=== PATIENT | male | born 1945 | race Caucasian/White ===

== ENCOUNTER → 2017-04-07 | Outpatient (CLI) | payer MEDICARE | END | disposition home or self-care (01) | LOC: PTMAIN 13:00 | PROVIDERS: ATTEND Otolaryngology | DX: J37.0 Chronic laryngitis (principal); K21.9 Gastro-esophageal reflux disease without esophagitis | CPT/HCPCS: 31579 ==

== ENCOUNTER → 2017-05-08 | Outpatient (CLI) | payer MEDICARE | END | disposition home or self-care (01) | LOC: LABWHC1 10:50 | PROVIDERS: ATTEND Internal Medicine Endocrinology, Diabetes & Metabolism | DX: E03.8 Other specified hypothyroidism (principal); R53.83 Other fatigue | CPT/HCPCS: 36415; 83002; 84403; 84439; 84443 ==

== ENCOUNTER → 2018-05-11 | Outpatient (CLI) | payer MEDICARE ==
[2018-05-11 15:54] LABS: Calcium 9.4 mg/dL (8.4-10.2); Total Bilirubin 0.6 mg/dL (0.2-1.3); Total Protein 6.7 g/dL (6.3-8.2)
[2018-05-12 02:08] LABS: Thyroid Peroxidase Antibodies <28.0 U/mL (0.0-60.0); Vitamin D 25 Hydroxy 29.4 ng/mL (30.0-100.0)
[2018-05-12 03:21] LABS: Parathyroid Hormone Intact 121.6 pg/mL (14.0-72.0)
== END | disposition home or self-care (01) ==
LOC: LABWHC1 15:17
PROVIDERS: ATTEND Internal Medicine Endocrinology, Diabetes & Metabolism
DX: E03.8 Other specified hypothyroidism (principal); M81.6 Localized osteoporosis [Lequesne]
CPT/HCPCS: 36415; 80053; 82306; 83970; 84443; 86376

== ENCOUNTER → 2018-10-05 | Outpatient (CLI) | payer MEDICARE ==
[2018-10-05 18:59] LABS: Albumin 4.3 g/dL (3.80-4.90); Albumin/Globulin Ratio 2.26 (1.20-2.10); Anion Gap 4.7 mmol/L (4.00-12.00); Carbon Dioxide 27.3 mmol/L (21.6-31.8); Globulin 1.9 g/dL (2.1-3.7); Potassium 4.6 mmol/L (3.5-5.5); Total Bilirubin 0.3 mg/dL (0.2-1.2); Total Protein 6.2 g/dL (6.2-8.2)
[2018-10-05 19:00] LABS: Thyroid Peroxidase Antibodies <28.0 U/mL (0.0-60.0)
[2018-10-05 21:54] LABS: Parathyroid Hormone Intact 102.5 pg/mL (14.0-72.0)
== END | disposition home or self-care (01) ==
LOC: LABWHC1 11:08
PROVIDERS: ATTEND Internal Medicine Endocrinology, Diabetes & Metabolism
DX: E03.8 Other specified hypothyroidism (principal); M81.6 Localized osteoporosis [Lequesne]
CPT/HCPCS: 36415; 80053; 82306; 83970; 84443; 86376

== ENCOUNTER → 2019-03-23 | Outpatient (CLI) | payer MEDICARE | END | disposition home or self-care (01) | LOC: LABWHC1 16:06 | PROVIDERS: ATTEND Internal Medicine Endocrinology, Diabetes & Metabolism | DX: E03.8 Other specified hypothyroidism (principal) | CPT/HCPCS: 36415; 84443 ==

== ENCOUNTER → 2019-03-23 | Outpatient (CLI) | payer MEDICARE ==
--- NOTE | 2019-03-23 15:45 | MR ---
EXAMINATION TYPE: MR lumbar spine wo/w con DATE OF EXAM: 03/23/2019 COMPARISON: 08/05/2016 HISTORY: Low back pain with prior lumbar surgical intervention TECHNIQUE: Multiplanar, multisequence images of the lumbar spine were acquired utilizing 13.5 mL intravenous Joey avist gadolinium contrast. FINDINGS: There is a S-shaped scoliosis of the thoracolumbar junction. This is rotatory slightly limi ting evaluation of the neural foramen. There is surgical absence of the posterior elements at L5 and fibrosis within the subcutaneous tissues at L4-L5. There is near osseous fusion of the L1-L2 levels. Multilevel degenerative endplate change and Schmorl's nodes are noted. Multilevel disc desiccation is seen. However, there is abnormal enhancement of the visualized portions of the T11 vertebral body an d superior endplate as well as mid body of the T12 vertebrae new from the prior of 08/05/2016. There is generalized paravertebral paraspinal muscular atrophy increasing towards the lumbosacral junction. Possible left renal sinus cyst is seen although incompletely visualized. Renal ultrasound could be c onsidered if there is further concern L1-L2: There is a diminutive disc space with near complete osseous fusion of the L1 and L2 vertebral bodies. What is residual of the disc in combination with posterior projecting osteophyte and facet ar thropathy creating moderate left neural foraminal narrowing. Right neural foramen is patent. No signi ficant spinal canal stenosis. L2-L3: There is a right foraminal disc herniation creating moderate to severe right neural foraminal narrowing in combination with a posterior projecting osteophyte and facet arthropathy. There is moder ate left neural foraminal narrowing and mild spinal canal stenosis due to facet arthropathy and ligam entum flavum buckling. This has the most mass effect on the right lateral aspect of the spinal canal. L3-L4: There is a broad-based disc bulge and facet arthropathy as well as mild ligamentum flavum cunningham ling resulting in mild left and moderate right neural foraminal narrowing. No significant spinal steph l stenosis. L4-L5: There is a broad-based disc bulge, facet arthropathy, ligamentum flavum buckling and posterior projecting osteophytes creating moderate left and severe right neural foraminal narrowing. This also results in mild spinal canal stenosis. L5-S1: There is a small central disc herniation and broad-based disc bulge with marked facet hypertro phy. This is likely recurrent as there is postsurgical change at this level with surgical absence of the posterior elements. There is mild to moderate bilateral neural foraminal narrowing without spinal canal stenosis. There is no abnormal epidural enhancement to suggest epidural fibrosis. IMPRESSION: 1. Abnormal enhancement and bone marrow signal within the visualized portions of T11 and T12. Finding s are concerning for underlying metastasis and correlation with PSA as well as bone scan are recommen ded. The superior endplate is not seen of T11 and vertebral body height is uncertain. 2. Small central disc herniation at L5-S1 appears recurrent despite surgical change with resection of the posterior element at L5. This examination with facet arthropathy creates mild to moderate bilate ral neural foraminal narrowing. 3. Right foraminal disc herniation at L2-L3 creating moderate to severe right neural foraminal narrow ing. This in combination with degenerative change create moderate left neural foraminal narrowing and right lateral mild spinal canal stenosis. 4. Slight progression in the multifocal level degenerative disc disease of the lumbar spine resulting in mild spinal canal stenosis at L4-L5 and variable degrees of neural foraminal narrowing as describ ed above. 5. Partially visualized left renal lesion could represent a renal sinus cyst however could be further evaluated with renal ultrasound.
== END | disposition home or self-care (01) ==
LOC: RADMRIMAIN 13:35
PROVIDERS: ATTEND Psychiatry & Neurology Neurology
DX: M48.061 Spinal stenosis, lumbar region without neurogenic claudication (principal); M48.07 Spinal stenosis, lumbosacral region; M51.26 Other intervertebral disc displacement, lumbar region; M51.27 Other intervertebral disc displacement, lumbosacral region; M51.36 Other intervertebral disc degeneration, lumbar region; M46.97 Unspecified inflammatory spondylopathy, lumbosacral region; Z98.890 Other specified postprocedural states
CPT/HCPCS: 72158; A9585

== ENCOUNTER → 2019-04-12 | Outpatient (CLI) | payer MEDICARE ==
--- NOTE | 2019-04-13 12:05 | MR ---
Thoracic MRI with and without contrast HISTORY: Pain, prostate carcinoma Multiplanar multisequence and postcontrast images obtained through the thoracic spine following 13.5 cc Gadavist IV. Correlation lumbar MRI 03/23/2019 Multilevel hypertrophic spondylosis is present. There is a S-shaped thoracic scoliosis. Endplate disc ogenic marrow signal changes are present with associated loss of disc height and signal at multiple i ntervertebral levels compatible with degenerative disc disease. Thoracic cord signal is normal. No ab normal enhancement. No significant foraminal encroachment. There is multilevel facet arthropathy. Mul tilevel posterior disc bulges causes slight anterior mass effect on the thecal sac. There is a mild s jenny stenosis present at T10-11. Some increased signal present at the intervertebral disc space T8-9 may represent some calcification IMPRESSION: Multilevel degenerative disc disease, facet arthropathy as described. Metastatic disease is not evident.
== END | disposition home or self-care (01) ==
LOC: RADMRIMAIN 20:42
PROVIDERS: ATTEND Psychiatry & Neurology Neurology
DX: M51.34 Other intervertebral disc degeneration, thoracic region (principal); M46.94 Unspecified inflammatory spondylopathy, thoracic region
CPT/HCPCS: 72157; A9585

== ENCOUNTER → 2019-09-27 | Outpatient (CLI) | payer MEDICARE ==
[2019-09-27 20:00] LABS: African American GFR (CKD) 49.5 (60.0-200.0); Albumin 3.8 g/dL (3.80-4.90); Albumin/Globulin Ratio 1.9 (1.60-3.17); BUN/Creat Ratio 15.63 Ratio (12.00-20.00); Non-African American GFR(CKD) 42.7 (60.0-200.0); Potassium 4.6 mmol/L (3.5-5.5); Total Bilirubin 0.5 mg/dL (0.2-1.2); Total Protein 5.8 g/dL (6.2-8.2)
== END | disposition home or self-care (01) ==
LOC: LABWHC1 14:08
PROVIDERS: ATTEND Internal Medicine Endocrinology, Diabetes & Metabolism
DX: E03.8 Other specified hypothyroidism (principal); E55.9 Vitamin D deficiency, unspecified; N25.81 Secondary hyperparathyroidism of renal origin
CPT/HCPCS: 36415; 80053; 82306; 83970; 84443

== ENCOUNTER → 2019-10-12 | Outpatient (CLI) | payer MEDICARE ==
[2019-10-12 09:23] LABS: African American GFR (CKD) 75 (>60 ml/min/1.73 sqM); Anion Gap 7 mmol/L; Blood Urea Nitrogen 29 mg/dL (9-20); Carbon Dioxide 28 mmol/L (22-30); Chloride 104 mmol/L (98-107); Glucose 97 mg/dL (74-99); Non-African American GFR(CKD) 65 (>60 ml/min/1.73 sqM); Potassium 4.5 mmol/L (3.5-5.1); Sodium 139 mmol/L (137-145)
[2019-10-12 09:30] LABS: HCT 38.4 % (39.0-53.0); HGB 11.8 gm/dL (13.0-17.5); Hypochromasia Moderate; MCH 28.7 pg (25.0-35.0); MCHC 30.8 g/dL (31.0-37.0); MCV 93.2 fL (80.0-100.0); Mean Platelet Volume 7.8; Platelet Count 242 k/uL (150-450); RBC 4.12 m/uL (4.30-5.90); RDW 14.3 % (11.5-15.5); WBC 8.8 k/uL (3.8-10.6)
[2019-10-12 09:32] LABS: Partial Thromboplastin Time 33.3 sec (22.0-30.0); Prothrombin Time 10.9 sec (9.0-12.0)
== END | disposition home or self-care (01) ==
LOC: LABWHC1 08:47
PROVIDERS: ATTEND Internal Medicine Cardiovascular Disease
DX: Z01.812 Encounter for preprocedural laboratory examination (principal); Z79.01 Long term (current) use of anticoagulants
CPT/HCPCS: 36415; 80048; 85027; 85610; 85730

== ENCOUNTER → 2019-12-01 | Outpatient (CLI) | payer MEDICARE ==
[2019-12-02 00:25] LABS: African American GFR (CKD) 63.2 (60.0-200.0); Albumin 4.4 g/dL (3.80-4.90); Albumin/Globulin Ratio 1.91 (1.60-3.17); Anion Gap 7.7 mmol/L (4.00-12.00); BUN/Creat Ratio 18.46 Ratio (12.00-20.00); Calcium 9.7 mg/dL (8.7-10.3); Carbon Dioxide 27.3 mmol/L (21.6-31.8); Globulin 2.3 g/dL (1.6-3.3); Non-African American GFR(CKD) 54.5 (60.0-200.0); Potassium 5.1 mmol/L (3.5-5.5); Total Bilirubin 0.6 mg/dL (0.3-1.2); Total Protein 6.7 g/dL (6.2-8.2)
== END | disposition home or self-care (01) ==
LOC: LABWHC1 15:45
PROVIDERS: ATTEND Internal Medicine Endocrinology, Diabetes & Metabolism
DX: E03.8 Other specified hypothyroidism (principal); E55.9 Vitamin D deficiency, unspecified; E21.3 Hyperparathyroidism, unspecified
CPT/HCPCS: 36415; 80053; 82306; 83970; 84443

== ENCOUNTER → 2019-12-06 | Outpatient (CLI) | payer MEDICARE | END | disposition home or self-care (01) | LOC: LABWHC1 08:54 | PROVIDERS: ATTEND Internal Medicine Endocrinology, Diabetes & Metabolism | DX: R23.2 Flushing (principal) | CPT/HCPCS: 36415; 84403 ==

== ENCOUNTER → 2020-04-21 | Outpatient (CLI) | payer MEDICARE | END | disposition home or self-care (01) | LOC: LABWHC1 14:54 | PROVIDERS: ATTEND Internal Medicine Endocrinology, Diabetes & Metabolism | DX: E03.8 Other specified hypothyroidism (principal); E55.9 Vitamin D deficiency, unspecified; E21.3 Hyperparathyroidism, unspecified | CPT/HCPCS: 36415; 82306; 83970; 84443 ==

== ENCOUNTER → 2021-04-26 | Outpatient (CLI) | payer MEDICARE ==
[2021-04-26 15:44] LABS: T4, Free (Free Thyroxine) 1.1 ng/dL (0.80-1.80)
[2021-04-26 15:50] LABS: African American GFR (CKD) 86.2 (60.0-200.0); Albumin/Globulin Ratio 1.74 (1.60-3.17); Anion Gap 3.6 mmol/L (4.00-12.00); Bilirubin, Conjugated 0.3 mg/dL (0.20-0.40); Bilirubin,Unconjugated 0.5 mg/dL; C Reactive Protein, High Sens 9.95 mg/L (0.000-3.000); Calcium 9.4 mg/dL (8.7-10.3); Carbon Dioxide 32.4 mmol/L (21.6-31.8); Chol/HDL Ratio 2.76; Globulin 2.3 g/dL (1.6-3.3); LDL Cholesterol,Calculated 72.4 mg/dL (0.0-131.0); Non-African American GFR(CKD) 74.3 (60.0-200.0); Potassium 4.5 mmol/L (3.5-5.5); Total Bilirubin 0.8 mg/dL (0.3-1.2); Total Protein 6.3 g/dL (6.2-8.2); VLDL Calculation 15.6 mg/dL (5.00-40.00)
[2021-04-26 16:55] LABS: Basophils # (A) 0.05 X 10*3/uL (0.00-0.10); Basophils % (A) 0.7 %; Eosinophils # (A) 0.25 X 10*3/uL (0.04-0.35); Eosinophils % (A) 3.5 %; HCT 42.9 % (39.6-50.0); HGB 13.3 g/dL (13.0-17.0); Lymphocytes # (A) 1.09 X 10*3/uL (0.90-5.00); Lymphocytes % (A) 15.2 %; MCH 28.1 pg (27.0-32.0); MCV 90.7 fL (80.0-97.0); Mean Platelet Volume 11.2 fL (9.5-12.2); Monocytes % (A) 9.8 %; Neutrophils # (A) 5.04 X 10*3/uL (1.80-7.70); Neutrophils % (A) 70.5 %; Platelet Count 259 X 10*3/uL (140-440); RBC 4.73 X 10*6/uL (4.40-5.60); RDW 15.2 % (11.5-14.5); WBC 7.15 X 10*3/uL (4.50-10.00)
[2021-04-26 20:12] LABS: Erythrocyte Sedimentation Rate 22 mm/Hr (0-20)
[2021-04-26 22:29] LABS: INR 1.12 (0.90-1.11); Partial Thromboplastin Time 41.2 sec (23.5-31.0); Prothrombin Time 12.1 sec (9.9-11.9)
== END | disposition home or self-care (01) ==
LOC: LABWHC1 10:35
PROVIDERS: ATTEND Internal Medicine Endocrinology, Diabetes & Metabolism
DX: E03.8 Other specified hypothyroidism (principal); E55.9 Vitamin D deficiency, unspecified; E21.3 Hyperparathyroidism, unspecified; E78.2 Mixed hyperlipidemia; I25.10 Atherosclerotic heart disease of native coronary artery without angina pectoris; I11.9 Hypertensive heart disease without heart failure; E07.9 Disorder of thyroid, unspecified
CPT/HCPCS: 36415; 80053; 80061; 82248; 82306; 83970; 84439; 84443; 84481; 85025; 85610; 85652; 85730; 86141

== ENCOUNTER → 2021-07-03 | Outpatient (CLI) | payer MEDICARE ==
[2021-07-03 10:54] LABS: Albumin 3.4 g/dL (3.5-5.0); Potassium 4.8 mmol/L (3.5-5.1); Total Bilirubin 0.8 mg/dL (0.2-1.3); Total Protein 6.2 g/dL (6.3-8.2)
[2021-07-03 19:02] LABS: Hemoglobin A1C 5.5 % (4.0-6.0)
--- NOTE | 2021-07-03 20:01 | BD ---
EXAMINATION TYPE: Axial Bone Density DATE OF EXAM: 07/03/2021 COMPARISON: NONE CLINICAL HISTORY: 75-year-old male E21.3, hyperparathyroidism. Height: 71 Weight: 331.6 FRAX RISK QUESTIONS: Alcohol (3 or more units per day): no Family History (Parent hip fracture): yes Glucocorticoids (More than 3mos): no (Ex: prednisone, prednisolone, methylprednisolone, dexamethasone, and hydrocortisone). History of Fracture in Adulthood: no Secondary Osteoporosis: 1. Type 1 Diabetes: no 2. Hyperthyroidism: no 3. Menopause before 45: n/a 4. Malnutrition: no 5. Chronic liver disease: no Rheumatoid Arthritis: no Current Tobacco Use: no RISK FACTORS HISTORY OF: Surgery to Spine/Hip(right/left)/Wrist (right/left): bilateral hips replacements laminectomy spine Family History of Osteoporosis: yes Active: no Diet low in dairy products/other sources of calcium: no Frequent falls: yes MEDICATIONS: oxycodone Thyroid Medications: synthroid How Lon 1/2 years Additional History: EXAM MEASUREMENTS: Bone mineral densitometry was performed using the [employer] System. Bone mineral density as measured about the Lumbar spine is: ----- L1-L4(G/cm2): 1.831 T Score Values are as follows: ----- L2: 6.2 ----- L3: 4.2 ----- L4: 4.3 ----- L1-L4: 5.4 Bone mineral density : baseline Bone mineral density about the L Wrist (g/cm2): 0.927 T Score values are as follows: -----Dist. R+U: -1.7 -----Prox. R+U: -0.6 -----Radius total: -1.5 Bone mineral density : baseline IMPRESSION: Normal (Values between +1 and -1 indicate normal bone mass). Consider repeating this study in 5 year s or sooner if there is some new clinical indication. NOTE: T-SCORE=SD OF THE YOUNG ADULT MEAN.
== END | disposition home or self-care (01) ==
LOC: RADBDWWP 08:55
PROVIDERS: ATTEND Internal Medicine Endocrinology, Diabetes & Metabolism
DX: E21.3 Hyperparathyroidism, unspecified (principal)
CPT/HCPCS: 77080; 80053; 82306; 83036; 83970; 84443

== ENCOUNTER → 2021-11-14 | Outpatient (CLI) | payer MEDICARE ==
[2021-11-14 10:48] LABS: ALT 28 U/L (4-49); AST 28 U/L (17-59); African American GFR (CKD) 75 (>60 ml/min/1.73 sqM); Albumin 3.8 g/dL (3.5-5.0); Albumin/Globulin Ratio 1.3; Alkaline Phosphatase 102 U/L (38-126); Anion Gap 9 mmol/L; Blood Urea Nitrogen 19 mg/dL (9-20); Calcium 9.2 mg/dL (8.4-10.2); Carbon Dioxide 28 mmol/L (22-30); Chloride 103 mmol/L (98-107); Globulin 2.9 g/dL; Glucose 99 mg/dL (74-99); Non-African American GFR(CKD) 65 (>60 ml/min/1.73 sqM); Potassium 4.6 mmol/L (3.5-5.1); Sodium 140 mmol/L (137-145); Total Bilirubin 0.8 mg/dL (0.2-1.3); Total Protein 6.7 g/dL (6.3-8.2)
== END | disposition home or self-care (01) ==
LOC: LABWHC1 09:26
PROVIDERS: ATTEND Internal Medicine Endocrinology, Diabetes & Metabolism
DX: E03.8 Other specified hypothyroidism (principal); E55.9 Vitamin D deficiency, unspecified; N25.81 Secondary hyperparathyroidism of renal origin; R73.03 Prediabetes
CPT/HCPCS: 36415; 80053; 82306; 83036; 83970; 84443

== ENCOUNTER → 2022-01-09 | Outpatient (CLI) | payer MEDICARE ==
[2022-01-09 23:31] LABS: African American GFR (CKD) 81.6 (60.0-200.0); BUN/Creat Ratio 22.31 Ratio (12.00-20.00); Blood Urea Nitrogen 23.2 mg/dL (9.0-27.0); Calcium 9.2 mg/dL (8.7-10.3); Carbon Dioxide 26.7 mmol/L (20.0-27.5); Non-African American GFR(CKD) 70.4 (60.0-200.0)
== END | disposition home or self-care (01) ==
LOC: LABWHC1 14:37
PROVIDERS: ATTEND Internal Medicine Cardiovascular Disease
DX: I27.29 Other secondary pulmonary hypertension (principal); R00.2 Palpitations; E66.9 Obesity, unspecified; R06.02 Shortness of breath
CPT/HCPCS: 36415; 80048; 83880

== ENCOUNTER 2022-02-06 03:12 | Emergency (ER) | payer MEDICARE ==
[2022-02-06 03:19] VITALS: TEMP 98.4
[2022-02-06] MEDS ORDERED: DIPH,PERTUS(ACELL)TETVAC-LF 0.5 ML VIAL IM ONE (03:25)
--- NOTE | 2022-02-06 03:27 | ED ---
Fall HPI - General Chief Complaint: Fall Stated Complaint: Fall Time Seen by Provider: 02/06/22 03:24 Source: patient, EMS Mode of arrival: EMS - History of Present Illness MD Complaint: fall -: minutes(s) Fall From: standing When Fall Occurred: just prior to arrival Fall Witnessed: yes, by family Place Fall Occurred: home Loss of Consciousness: none Prolonged Down Time?: no Location: head Severity: mild Associated Symptoms: denies - Related Data Home Medications Medication Instructions Recorded Confirmed DULoxetine HCL [Cymbalta] 60 mg PO BID 01/28/15 06/08/15 lamoTRIgine [LaMICtal] 150 mg PO DAILY 01/28/15 06/08/15 Lisdexamfetamine Dimesylate 70 mg PO DAILY 03/09/15 06/08/15 [Vyvanse] oxyCODONE HCL [OxyCONTIN] 40 mg PO TID 03/09/15 06/08/15 Metoprolol Tartrate [Lopressor] 50 mg PO BID 06/08/15 06/08/15 Previous Rx's Medication Instructions Recorded ARIPiprazole [Abilify] 20 mg PO DAILY tab 03/10/15 Apixaban [Eliquis] 5 mg PO BID #60 tab 03/10/15 oxyCODONE HCL [OxyIR] 15 mg PO Q6HR tab 03/10/15 Azithromycin [Zithromax Z-pack (6 250 mg PO DIRECTED #6 tab 06/08/15 tabs)] Allergies Allergy/AdvReac Type Severity Reaction Status Date / Time No Known Allergies Allergy Verified 06/08/15 16:14 Review of Systems ROS Statement: Those systems with pertinent positive or pertinent negative responses have been documented in the HPI. ROS Other: All systems not noted in ROS Statement are negative. Constitutional: Denies: fever Eyes: Denies: vision change ENT: Denies: epistaxis Respiratory: Denies: cough, dyspnea Cardiovascular: Denies: chest pain, palpitations, syncope Gastrointestinal: Denies: abdominal pain, vomiting Musculoskeletal: Denies: back pain Neurological: Reports: headache. Denies: weakness, numbness, paresthesias Past Medical History Past Medical History: Atrial Fibrillation, Hypertension Additional Past Medical History / Comment(s): 03/09/15 Pt presented to [facility] ER via EMS. He was suppose to have a colonoscopy today but when they hooked him up to EKG he was in Afib. Other HX: 01/28/15 seen in [facility] ER after a fall and subsequent. hematuria-resolved and he had a cystoscopy that was normal. Pt has hx of prostate cancer with prostatectomy. History of Any Multi-Drug Resistant Organisms: None Reported Past Surgical History: Back Surgery, Joint Replacement Additional Past Surgical History / Comment(s): (B) hip replecement, (B)knee replacement, laminectomy, prostatectomy. Past Anesthesia/Blood Transfusion Reactions: No Reported Reaction Additional Past Anesthesia/Blood Transfusion Reaction / Comment(s): Pt has never recieved blood. Past Psychological History: Depression Smoking Status: Never smoker Past Alcohol Use History: Occasional Past Drug Use History: None Reported - Past Family History Father Family Medical History: Myocardial Infarction (WA) Additional Family Medical History / Comment(s): Father of a [place] at age 89 yrs. Mother Family Medical History: Cancer Additional Family Medical History / Comment(s): Mother had multiple myeloma. She at age 68 yrs. General Exam General appearance: alert, in no apparent distress Head exam: Present: atraumatic, normocephalic, other (Face laceration approximately 9 cm in length) Eye exam: Present: normal appearance, PERRL, EOMI. Absent: scleral icterus, conjunctival injection ENT exam: Present: normal oropharynx Neck exam: Present: normal inspection, tenderness, full ROM. Absent: meningismus Respiratory exam: Present: normal lung sounds bilaterally. Absent: respiratory distress, wheezes, rales, rhonchi, stridor, chest wall tenderness Cardiovascular Exam: Present: regular rate, normal rhythm, normal heart sounds. Absent: systolic murmur, diastolic murmur, rubs, gallop GI/Abdominal exam: Present: soft. Absent: distended, tenderness, guarding, rebound, rigid, mass Extremities exam: Present: normal inspection, normal capillary refill. Absent: pedal edema, calf tenderness Back exam: Present: normal inspection. Absent: CVA tenderness (R), CVA tenderness (L), vertebral tenderness Neurological exam: Present: alert, oriented X3, CN II-XII intact. Absent: motor sensory deficit Skin exam: Present: warm, dry, normal color, other (Facial laceration) Course Vital Signs 02/06/22 02/06/22 02/06/22 03:14 04:55 07:04 Temperature 98.4 F Pulse Rate 129 H 102 H 102 H Respiratory 18 18 20 Rate Blood Pressure 117/95 103/85 109/80 O2 Sat by Pulse 94 L 96 95 Oximetry Procedures - Laceration Laceration #1 Consent Obtained: verbal consent Indication: laceration Site: face Description: linear Depth: simple, single layer Anesthetic Used: lidocaine 1% Anesthesia Technique: local infiltration Type of Sutures: nylon Size of Sutures: 5-0 Number of Sutures: 9 Technique: running Patient Tolerated Procedure: well, no complications Disposition Clinical Impression: Fall, Head injury, Laceration of face Disposition: HOME SELF-CARE Condition: Good Instructions (If sedation given, give patient instructions): Facial Laceration (ED) Is patient prescribed a controlled substance at d/c from ED?: No Referrals: Enoch Galarza MD [Primary Care Provider] - 1-2 days
--- NOTE | 2022-02-06 03:50 | CT ---
EXAMINATION TYPE: CT brain cspine wo con DATE OF EXAM: 02/06/2022 COMPARISON: 02/12/2010 HISTORY: fall CT DLP: 1597.2 mGycm Automated exposure control for dose reduction was used. Images obtained of the brain and cervical spine without contrast. There is cerebral cortical atrophy. There is no mass effect or midline shift. There is no evidence of intracranial hemorrhage. The cervical vertebra have normal alignment. There is degenerative disc space narrowing throughout th e cervical spine with spurring of the endplates. Facet joints are intact. Prevertebral soft tissues a re intact. Skull base is intact. There is normal aeration of the mastoid sinuses. Occipital bone is i ntact. IMPRESSION: Cerebral atrophy. No acute intracranial abnormality. There is progression of atrophy compared to old exam. Multilevel cervical spondylotic changes similar to old exam. No acute abnormality.
[2022-02-06] MEDS ORDERED: LIDOCAINE 1% INJ 10MG/ML (20 ML MDV) SQ ONE (05:00)
[2022-02-06 07:32] VITALS: BP 110/84; PULSE 99; RESP 18
== END 2022-02-06 08:00 | disposition home or self-care (01) ==
LOC: EC 03:12
DX: S01.81XA Laceration without foreign body of other part of head, initial encounter (principal); I10 Essential (primary) hypertension; I48.91 Unspecified atrial fibrillation; F32.A Depression, unspecified; Z79.01 Long term (current) use of anticoagulants; Z79.899 Other long term (current) drug therapy; Z23 Encounter for immunization; W18.30XA Fall on same level, unspecified, initial encounter; Y92.009 Unspecified place in unspecified non-institutional (private) residence as the place of occurrence of the external cause
CPT/HCPCS: 72125; 70450; 90715; 12015; 90471; 99284; J2001

== ENCOUNTER 2022-03-01 12:10 | Inpatient (IN) | payer MEDICARE ==
[2022-03-01] MEDS: NITROGLYCERIN SL TABS 0.4 MG TAB SUBLINGUAL PRN ×2 (12:13→12:18)
[2022-03-01] MEDS ORDERED: FUROSEMIDE 10 MG/ML 4 ML VIAL IV STA (12:20)
[2022-03-01] MEDS ORDERED: IPRATROPIUM-ALBUTEROL 3 ML NEB INHALATION STA (12:22)
[2022-03-01] MEDS ORDERED: NITROGLYCERIN-D5W PMX 50 MG in DEXTROSE/WATER 1 250ML.BAG IV ONE (12:22)
[2022-03-01 12:24] LABS: Glucose,Whole Blood 137 mg/dL (75-99)
[2022-03-01] MEDS ORDERED: ASPIRIN 81 MG PO STA (12:27)
--- NOTE | 2022-03-01 12:27 | ED ---
General Adult HPI - General Chief complaint: Shortness of Breath Stated complaint: NADER Time Seen by Provider: 03/01/22 12:21 Source: patient, EMS Mode of arrival: EMS Limitations: no limitations - History of Present Illness Initial comments: Dictation was produced using Vault Dragon dictation software. please excuse any grammatical, word or spelling errors. Chief Complaint: 76-year-old male with past medical history of A. fib, COPD and hypertension presents to the emergency department for dyspnea History of Present Illness: 76-year-old male presents emergency department for dyspnea. History is limited by respiratory distress. According to EMS patient has been feeling short of breath for the last 2-3 days. Today his symptoms got significantly worse. EMS was called and they discovered patient sitting on the toilet. He did appear to be colmenares. They report that patient was very hypoxic in the 70 percents. He was found to be wheezing in given a DuoNeb and placed on CPAP. Patient oxygenation's improved to the 90 percents. Patient reports history of atrial fibrillation. He takes Xarelto. He states that he's been on it for years. Patient had some chest pain upon initial arrival that rated on the left upper extremity. He did have a prehospital EKG that did show some findings concerning for ischemia or infarction. Patient denies any history of heart failure. The ROS documented in this emergency department record has been reviewed and confirmed by me. Those systems with pertinent positive or negative responses h ave been documented in the HPI. All other systems are other negative and/or noncontributory. PHYSICAL EXAM: General Impression: Alert and oriented, diaphoretic, dyspneic HEENT: Normocephalic atraumatic, extra-ocular movements intact, pupils equal and reactive to light bilaterally, mucous membranes moist. Cardiovascular: Heart regular rate and rhythm Chest: Positive retractions, 1-2 word sentences, diffuse wheezing with auscultation to the lungs Abdomen: abdomen soft, non-tender, non-distended, no organomegaly Musculoskeletal: Pulses present and equal in all extremities, 3+ pitting edema to the bilateral lower extremities Motor: no focal deficits noted Neurological: CN II-XII grossly intact, no focal motor or sensory deficits noted Skin: Intact with no visualized rashes Psych: Anxious ED course: 46-year-old no presents to the emergency department for acute dyspnea. Patient has history of COPD. He arrived to our emergency department in trauma bay #1. He was placed on CPAP and given a breathing treatment by prehospital providers. Patient was transitioned to our bilevel noninvasive ventilation by respiratory therapy. [facility] bedside ultrasound showed B lines in the upper lung rose suggesting heart failure exacerbation. Vital signs showed blood pressure 200/139 and a heart rate of 122. potline monitor suggested atrial fibrillation with rapid fifth jugular rate. Clinical presentation concerning for hypertensive emergency with resulting acute pulmonary edema. Patient given one sublingual nitroglycerin with improvement of blood pressure to 150/113. After 5-10 minutes of sublingual nitroglycerin patient reports that his chest pain is improved and his shortness of breath is starting to improve. Patient fell while upon reevaluation at 2:00 PM. He wanted to try removing the BiPAP mask. Patient's blood pressure was trended and started to lower too quickly. Nitroglycerin infusion was discontinued. Patient to the emergency department for another 30 minutes with stable medical condition. Patient denies any chest pain. His were playing at the bedside. EKG interpretation: Ventricular rate 121, sinus tachycardia, MS interval 202, QRS 126. No MS prolongation, no QTC prolongation, no ST or T-wave changes noted. Repeat EKG was performed showing no dynamic changes. There is much less artifact on second EKG dated 03/01/2022 at time 14:48. There does appear to be T-wave inversions in the septal leads. Overall this EKG is nonspecific. - Related Data Home Medications Medication Instructions Recorded Confirmed DULoxetine HCL [Cymbalta] 60 mg PO BID 01/28/15 06/08/15 lamoTRIgine [LaMICtal] 150 mg PO DAILY 01/28/15 06/08/15 ALPRAZolam [Xanax] 1 mg PO TID 03/01/22 03/01/22 ARIPiprazole [Abilify] 10 - 20 mg PO DAILY 03/01/22 03/01/22 Albuterol Sulfate [Proair Hfa] 1 puff INHALATION RT-Q4H PRN 03/01/22 03/01/22 Atorvastatin [Lipitor] 20 mg PO DAILY 03/01/22 03/01/22 Beclomethasone Dip 80 Mcg/Puff 1 puff INHALATION RT-BID 03/01/22 03/01/22 [Qvar 80 mcg] Ergocalciferol [Vitamin D2 (1250 1,250 mcg PO Q7D 03/01/22 03/01/22 Mcg = 71013 Iu)] Levothyroxine Sodium 25 mcg PO DAILY 03/01/22 03/01/22 Losartan Potassium 100 mg PO DAILY 03/01/22 03/01/22 Oxybutynin Chloride [Ditropan XL] 10 mg PO BID 03/01/22 03/01/22 Pregabalin [Lyrica] 150 mg PO TID 03/01/22 03/01/22 Rivaroxaban [Xarelto] 20 mg PO W/SUPPER 03/01/22 03/01/22 Sotalol [Betapace] 80 mg PO BID 03/01/22 03/01/22 buPROPion HCL [Wellbutrin XL] 300 mg PO DAILY 03/01/22 03/01/22 oxyCODONE HCL [oxyCODONE HCL (IR)] 15 mg PO Q4-6H PRN 03/01/22 03/01/22 Allergies Allergy/AdvReac Type Severity Reaction Status Date / Time No Known Allergies Allergy Verified 03/01/22 14:32 Review of Systems ROS Statement: Those systems with pertinent positive or pertinent negative responses have been documented in the HPI. ROS Other: All systems not noted in ROS Statement are negative. Past Medical History Past Medical History: Atrial Fibrillation, COPD, Hypertension Additional Past Medical History / Comment(s): 03/09/15 Pt presented to [facility] ER via EMS. He was suppose to have a colonoscopy today but when they hooked him up to EKG he was in Afib. Other HX: 01/28/15 seen in [facility] ER after a fall and subsequent. hematuria-resolved and he had a cystoscopy that was normal. Pt has hx of prostate cancer with prostatectomy. History of Any Multi-Drug Resistant Organisms: None Reported Past Surgical History: Back Surgery, Joint Replacement Additional Past Surgical History / Comment(s): (B) hip replecement, (B)knee replacement, laminectomy, prostatectomy. Past Anesthesia/Blood Transfusion Reactions: No Reported Reaction Additional Past Anesthesia/Blood Transfusion Reaction / Comment(s): Pt has never recieved blood. Past Psychological History: Depression Smoking Status: Never smoker Past Alcohol Use History: Occasional Past Drug Use History: None Reported - Past Family History Father Family Medical History: Myocardial Infarction ([place]) Additional Family Medical History / Comment(s): Father of a [place] at age 89 yrs. Mother Family Medical History: Cancer Additional Family Medical History / Comment(s): Mother had multiple myeloma. She at age 68 yrs. General Exam Limitations: no limitations Course Vital Signs 03/01/22 03/01/22 03/01/22 12:14 12:18 12:28 Temperature 98.1 F Pulse Rate 122 H 121 H 124 H Respiratory 32 H 32 H Rate Blood Pressure 200/139 150/113 O2 Sat by Pulse 99 99 Oximetry 03/01/22 03/01/22 03/01/22 12:42 12:45 13:30 Temperature Pulse Rate 123 H 123 H 122 H Respiratory 26 H Rate Blood Pressure 146/106 118/84 O2 Sat by Pulse 99 97 Oximetry 03/01/22 14:00 Temperature Pulse Rate 120 H Respiratory Rate Blood Pressure 118/72 O2 Sat by Pulse 96 Oximetry Medical Decision Making - Lab Data Result diagrams: 03/01/22 12:31 03/01/22 12:31 Lab Results 03/01/22 03/01/22 03/01/22 Range/Units 12:23 12:31 12:31 WBC 10.1 (3.8-10.6) k/uL RBC 4.87 (4.30-5.90) m/uL Hgb 13.4 (13.0-17.5) gm/dL Hct 44.2 (39.0-53.0) % MCV 90.7 (80.0-100.0) fL MCH 27.6 (25.0-35.0) pg MCHC 30.4 L (31.0-37.0) g/dL RDW 16.6 H (11.5-15.5) % Plt Count 448 (150-450) k/uL MPV 8.1 Neutrophils % 66 % Lymphocytes % 23 % Monocytes % 7 % Eosinophils % 1 % Basophils % 1 % Neutrophils # 6.7 (1.3-7.7) k/uL Lymphocytes # 2.3 (1.0-4.8) k/uL Monocytes # 0.7 (0-1.0) k/uL Eosinophils # 0.1 (0-0.7) k/uL Basophils # 0.1 (0-0.2) k/uL Hypochromasia Marked Anisocytosis Slight PT 12.4 H (9.0-12.0) sec INR 1.2 H (<1.2) APTT 27.8 (22.0-30.0) sec Sodium (137-145) mmol/L Potassium (3.5-5.1) mmol/L Chloride (98-107) mmol/L Carbon Dioxide (22-30) mmol/L Anion Gap mmol/L BUN (9-20) mg/dL Creatinine (0.66-1.25) mg/dL Est GFR (CKD-EPI)AfAm (>60 ml/min/1.73 sqM) Est GFR (CKD-EPI)NonAf (>60 ml/min/1.73 sqM) Glucose (74-99) mg/dL POC Glucose (mg/dL) 137 H (75-99) mg/dL POC Glu Central Lab Technician ID Dwayne Contreras Plasma Lactic Acid Caden (0.7-2.0) mmol/L Calcium (8.4-10.2) mg/dL Magnesium (1.6-2.3) mg/dL Total Bilirubin (0.2-1.3) mg/dL AST (17-59) U/L ALT (4-49) U/L Alkaline Phosphatase (38-126) U/L Troponin I (0.000-0.034) ng/mL NT-Pro-B Natriuret Pep pg/mL Total Protein (6.3-8.2) g/dL Albumin (3.5-5.0) g/dL 03/01/22 03/01/22 03/01/22 Range/Units 12:31 12:31 12:31 WBC (3.8-10.6) k/uL RBC (4.30-5.90) m/uL Hgb (13.0-17.5) gm/dL Hct (39.0-53.0) % MCV (80.0-100.0) fL MCH (25.0-35.0) pg MCHC (31.0-37.0) g/dL RDW (11.5-15.5) % Plt Count (150-450) k/uL MPV Neutrophils % % Lymphocytes % % Monocytes % % Eosinophils % % Basophils % % Neutrophils # (1.3-7.7) k/uL Lymphocytes # (1.0-4.8) k/uL Monocytes # (0-1.0) k/uL Eosinophils # (0-0.7) k/uL Basophils # (0-0.2) k/uL Hypochromasia Anisocytosis PT (9.0-12.0) sec INR (<1.2) APTT (22.0-30.0) sec Sodium 139 (137-145) mmol/L Potassium 5.6 H (3.5-5.1) mmol/L Chloride 103 (98-107) mmol/L Carbon Dioxide 23 (22-30) mmol/L Anion Gap 13 mmol/L BUN 17 (9-20) mg/dL Creatinine 1.37 H (0.66-1.25) mg/dL Est GFR (CKD-EPI)AfAm 58 (>60 ml/min/1.73 sqM) Est GFR (CKD-EPI)NonAf 51 (>60 ml/min/1.73 sqM) Glucose 142 H (74-99) mg/dL POC Glucose (mg/dL) (75-99) mg/dL POC Glu Central Lab Technician ID Plasma Lactic Acid Caden (0.7-2.0) mmol/L Calcium 9.3 (8.4-10.2) mg/dL Magnesium 2.0 (1.6-2.3) mg/dL Total Bilirubin 1.7 H (0.2-1.3) mg/dL AST 38 (17-59) U/L ALT 21 (4-49) U/L Alkaline Phosphatase 113 (38-126) U/L Troponin I 0.160 H* (0.000-0.034) ng/mL NT-Pro-B Natriuret Pep 50331 pg/mL Total Protein 7.2 (6.3-8.2) g/dL Albumin 4.1 (3.5-5.0) g/dL 03/01/22 Range/Units 12:37 WBC (3.8-10.6) k/uL RBC (4.30-5.90) m/uL Hgb (13.0-17.5) gm/dL Hct (39.0-53.0) % MCV (80.0-100.0) fL MCH (25.0-35.0) pg MCHC (31.0-37.0) g/dL RDW (11.5-15.5) % Plt Count (150-450) k/uL MPV Neutrophils % % Lymphocytes % % Monocytes % % Eosinophils % % Basophils % % Neutrophils # (1.3-7.7) k/uL Lymphocytes # (1.0-4.8) k/uL Monocytes # (0-1.0) k/uL Eosinophils # (0-0.7) k/uL Basophils # (0-0.2) k/uL Hypochromasia Anisocytosis PT (9.0-12.0) sec INR (<1.2) APTT (22.0-30.0) sec Sodium (137-145) mmol/L Potassium (3.5-5.1) mmol/L Chloride (98-107) mmol/L Carbon Dioxide (22-30) mmol/L Anion Gap mmol/L BUN (9-20) mg/dL Creatinine (0.66-1.25) mg/dL Est GFR (CKD-EPI)AfAm (>60 ml/min/1.73 sqM) Est GFR (CKD-EPI)NonAf (>60 ml/min/1.73 sqM) Glucose (74-99) mg/dL POC Glucose (mg/dL) (75-99) mg/dL POC Glu Central Lab Technician ID Plasma Lactic Acid Caden 4.3 H* (0.7-2.0) mmol/L Calcium (8.4-10.2) mg/dL Magnesium (1.6-2.3) mg/dL Total Bilirubin (0.2-1.3) mg/dL AST (17-59) U/L ALT (4-49) U/L Alkaline Phosphatase (38-126) U/L Troponin I (0.000-0.034) ng/mL NT-Pro-B Natriuret Pep pg/mL Total Protein (6.3-8.2) g/dL Albumin (3.5-5.0) g/dL Critical Care Time Critical Care Time: Yes Total Critical Care Time: 33 Disposition Clinical Impression: Heart failure Disposition: ADMITTED IP TO THIS [facility] Condition: Fair Referrals: Enoch Galarza MD [Primary Care Provider] - 1-2 days
[2022-03-01 12:43] LABS: Anisocytosis Slight; Basophils # (A) 0.1 k/uL (0-0.2); Basophils % (A) 1 %; Eosinophils # (A) 0.1 k/uL (0-0.7); Eosinophils % (A) 1 %; HCT 44.2 % (39.0-53.0); HGB 13.4 gm/dL (13.0-17.5); Hypochromasia Marked; Lymphocytes # (A) 2.3 k/uL (1.0-4.8); Lymphocytes % (A) 23 %; MCH 27.6 pg (25.0-35.0); MCHC 30.4 g/dL (31.0-37.0); MCV 90.7 fL (80.0-100.0); Mean Platelet Volume 8.1; Monocytes # (A) 0.7 k/uL (0-1.0); Monocytes % (A) 7 %; Neutrophils # (A) 6.7 k/uL (1.3-7.7); Neutrophils % (A) 66 %; Platelet Count 448 k/uL (150-450); RBC 4.87 m/uL (4.30-5.90); RDW 16.6 % (11.5-15.5); WBC 10.1 k/uL (3.8-10.6)
--- NOTE | 2022-03-01 12:45 | XR ---
EXAMINATION TYPE: XR chest 1V portable DATE OF EXAM: 03/01/2022 COMPARISON: 06/08/2015 HISTORY: Shortness of breath TECHNIQUE: Single frontal view of the chest is obtained. FINDINGS: Heart is enlarged with diffuse interstitial pattern small bilateral pleural effusions with left lower lobe infiltrate. Atherosclerotic change aorta. Diffuse osteopenia. Arthropathy of the isabell ulders. Biapical pleural thickening. IMPRESSION: Cardiomegaly correlate for CHF otherwise consider interstitial pneumonia.
[2022-03-01 12:49] LABS: INR 1.2 (<1.2); Partial Thromboplastin Time 27.8 sec (22.0-30.0); Prothrombin Time 12.4 sec (9.0-12.0)
[2022-03-01 12:57] LABS: Albumin 4.1 g/dL (3.5-5.0); Calcium 9.3 mg/dL (8.4-10.2); Total Bilirubin 1.7 mg/dL (0.2-1.3); Total Protein 7.2 g/dL (6.3-8.2)
[2022-03-01 13:07] LABS: Potassium 5.6 mmol/L (3.5-5.1)
[2022-03-01] MEDS ORDERED: NITROGLYCERIN 0.2MG/HR PATCH TRANSDERM STA (14:34)
[2022-03-01] MEDS: FUROSEMIDE 10 MG/ML 4 ML VIAL IV SCH ×2 (17:01→23:38)
[2022-03-01] MEDS ORDERED: ALPRAZolam 1 MG TAB PO STA (17:35)
[2022-03-01] MEDS ORDERED: PANTOPRAZOLE 40 MG TABLET PO STA (17:35)
[2022-03-01] MEDS ORDERED: MAG HYDROX/AL HYDROX/SIMETH 30 ML CUP PO STA (19:11)
[2022-03-01] MEDS: FLUTICASONE 110 MCG INHALER INHALATION SCH (19:36)
[2022-03-01] MEDS: lamoTRIgine 100 MG TAB PO SCH (23:03)
[2022-03-01] MEDS: PREGABALIN 75 MG CAP PO SCH (23:03)
[2022-03-01] MEDS: SOTALOL 80 MG TAB PO SCH (23:03)
[2022-03-01] MEDS: ALPRAZolam 1 MG TAB PO SCH (23:03)
[2022-03-01] MEDS: OXYBUTYNIN 10 MG TAB.ER.24 PO SCH (23:03)
[2022-03-02] MEDS: METOPROLOL TARTRATE 25 MG TAB PO SCH ×3 (02:11→22:15)
[2022-03-02] MEDS: LEVOTHYROXINE 25 MCG TAB PO SCH (06:38)
[2022-03-02 06:41] LABS: T4, Free (Free Thyroxine) 1.65 ng/dL (0.78-2.19)
[2022-03-02] MEDS: FLUTICASONE 110 MCG INHALER INHALATION SCH ×2 (08:07→19:34)
[2022-03-02] MEDS: FUROSEMIDE 10 MG/ML 4 ML VIAL IV SCH ×3 (09:58→19:27)
[2022-03-02] MEDS: lamoTRIgine 100 MG TAB PO SCH ×2 (09:58→22:14)
[2022-03-02] MEDS: LOSARTAN 50 MG TAB PO SCH (09:58)
[2022-03-02] MEDS: DULoxetine HCL 60 MG CAPSULE.DR PO SCH (09:58)
[2022-03-02] MEDS: ALPRAZolam 1 MG TAB PO SCH ×2 (09:58→17:00)
[2022-03-02] MEDS: PREGABALIN 75 MG CAP PO SCH ×3 (09:58→22:14)
[2022-03-02] MEDS: ATORVASTATIN 20 MG TAB PO SCH (09:58)
[2022-03-02] MEDS: buPROPion XL 300 MG TAB.ER.24H PO SCH (09:59)
[2022-03-02] MEDS: ASPIRIN 325 MG TAB PO SCH (09:59)
[2022-03-02] MEDS: SOTALOL 80 MG TAB PO SCH (09:59)
[2022-03-02] MEDS: OXYBUTYNIN 10 MG TAB.ER.24 PO SCH ×2 (09:59→22:14)
[2022-03-02] MEDS ORDERED: MAG HYDROX/AL HYDROX/SIMETH 30 ML CUP PO PRN (14:33)
[2022-03-02] MEDS ORDERED: DILTIAZEM DRIP BOLUS FROM BAG 1 MG SOLN IV ONE (15:23)
--- NOTE | 2022-03-02 15:32 | P.CRDCN ---
History of Present Illness History of present illness: HISTORY OF PRESENTING ILLNESS Patient is a pleasant 77-year-old male with history of hypertension, hyperlipidemia, obesity, atrial fibrillation who presents secondary to worsening dyspnea over the last 3-4 weeks. He states he normally follows with Dr. Kraft from [facility]. He was scheduled to get an echo done however had a last minute trip to [place] and therefore went to [place] instead. He admits he was running out of his medications and thought he could get some of the medications in [place]. Therefore he has been out of number of his medications including his blood pressure meds as well as sotalol. Since coming back he has had progressive dyspnea with 6 pillow orthopnea and increased lower extremity edema and therefore eventually had respiratory distress and EMS was called and patient found to be hypoxic in the 70s. Initial EKG read out as sinus rhythm, sinus tachycardia 130 bpm however has persistently been tachycardic at 1:30 without any variation. Appears concerning for atrial flutter with RVR. He was having significant chest pain and pressure yesterday when he was in respiratory distress however currently improved. He states he had a heart catheterization 5 years ago secondary to abnormal stress test and was told that his coronary arteries are "wide open". Initial lactic acid 4.3, total bilirubin 1.7, troponin 0.16, 0.2, proBNP 18,900, TSH 5.1, creatinine 1.37 with baseline appearing to be 1.0 from December, white blood cell count 10.1. Initial blood pressure was in the 200s over 1:30 range however restarted on prior medications and better controlled. He states he is feeling somewhat better currently however still continued dyspnea and lower extremity edema. Denies any further chest pain. REVIEW OF SYSTEMS At the time of my exam: CONSTITUTIONAL: Denies fever or chills. CARDIOVASCULAR: +chest pain, +shortness of breath, +orthopnea, no PND or palpitations. RESPIRATORY: Denies cough. GASTROINTESTINAL: Denies abdominal pain, diarrhea, constipation, nausea or vomiting. MUSCULOSKELETAL: Denies myalgias. NEUROLOGIC: Denies numbness, tingling or weakness. ENDOCRINE: Denies fatigue, weight change, polydipsia or polyurina. GENITOURINARY: Denies burning, hematuria or urgency with micturation. HEMATOLOGIC: Denies history of anemia or bleeding. PHYSICAL EXAMINATION Vital signs reviewed. CONSTITUTIONAL: No apparent distress, chornically ill appearing. HEENT: Head is normocephalic. Pupils are equal, round. Sclerae anicteric. Mucous membranes of the mouth are moist. No JVD. No carotid bruit. CHEST EXAMINATION: +crackles at bases, No chest wall tenderness is noted on palpation or with deep breathing. HEART EXAMINATION: tachy rate and regular rhythm. S1, S2 heard. No murmurs, gallops or rub. ABDOMEN: Soft, nontender. Positive bowel sounds. EXTREMITIES: 2+ peripheral pulses, 2+ lower extremity edema and no calf tenderness. NEUROLOGIC EXAMINATION: Patient is awake, alert and oriented x3. ASSESSMENT 1. Acute on chronic heart failure, unclear systolic or diastolic 2. Narrow complex tachycardia, initially read out as sinus tachycardia however concerning for atrial flutter with RVR 3. Initial hypertensive emergency with blood pressure 200s over 130s improved 4. Acute on chronic kidney injury 5. Medical noncompliance, patient recently ran out of numerous medications 6. Paroxysmal atrial fibrillation 7. Non-STEMI, likely type II mechanism related to hypoxia, hypertension, heart failure. Reported normal heart catheterization previously PLAN Patient with symptoms consistent of heart failure and appears somewhat improved after diuretics. Blood pressure extremely elevated and patient had run out of the number of his medications. Patient has had continued narrow complex tachycardia at 1 30 bpm concerning for atrial flutter with 2-1 conduction. Start Cardizem drip and monitor response. Check 2-D echo. If patient has had continued tachycardia for some time possibility of tachycardia induced cardiomyopathy. Obtain records from Dr. Kraft's office. May consider heart catheterization however reported normal catheterization in the past and much of symptoms appear related to hypertension and heart failure. Further recommendations follow. Past Medical History Past Medical History: Atrial Fibrillation, COPD, Hypertension, Osteoarthritis ([place]), Sleep Apnea/CPAP/BIPAP Additional Past Medical History / Comment(s): 03/09/15 Pt presented to [facility] ER via EMS. He was suppose to have a colonoscopy today but when they hooked him up to EKG he was in Afib. Other HX: 01/28/15 seen in [facility] ER after a fall and subsequent. Pt has hx of prostate cancer with prostatectomy. Neuropathy, Cardiac cath, History of Any Multi-Drug Resistant Organisms: None Reported Past Surgical History: Back Surgery, Joint Replacement Additional Past Surgical History / Comment(s): (B) hip replecement, (B)knee replacement, laminectomy x6, prostatectomy. Past Anesthesia/Blood Transfusion Reactions: No Reported Reaction Additional Past Anesthesia/Blood Transfusion Reaction / Comment(s): Pt has never recieved blood. Past Psychological History: Depression Additional Psychological History / Comment(s): Pt takes med for depression and is seen by a psychiatrist. He feels his depression is under control. He lives with family. He is independent. He drives a car. Smoking Status: Never smoker Past Alcohol Use History: Occasional Past Drug Use History: None Reported - Past Family History Father Family Medical History: Congestive Heart Failure (CHF), Hypertension, Myocardial Infarction ([place]) Additional Family Medical History / Comment(s): Father of a [place] at age 89 yrs. Mother Family Medical History: Cancer Additional Family Medical History / Comment(s): Mother had multiple myeloma. She at age 68 yrs. Medications and Allergies Home Medications Medication Instructions Recorded Confirmed Type DULoxetine HCL [Cymbalta] 120 mg PO DAILY 01/28/15 03/01/22 History lamoTRIgine [LaMICtal] 150 mg PO BID 01/28/15 03/01/22 History ALPRAZolam [Xanax] 1 mg PO TID 03/01/22 03/01/22 History ARIPiprazole [Abilify] 10 - 20 mg PO DAILY 03/01/22 03/01/22 History Albuterol Sulfate [Proair Hfa] 1 puff INHALATION RT-Q4H PRN 03/01/22 03/01/22 History Atorvastatin [Lipitor] 20 mg PO DAILY 03/01/22 03/01/22 History Beclomethasone Dip 80 Mcg/Puff 1 puff INHALATION RT-BID 03/01/22 03/01/22 History [Qvar 80 mcg] Ergocalciferol [Vitamin D2 (1250 1,250 mcg PO Q7D 03/01/22 03/01/22 History Mcg = 96762 Iu)] Levothyroxine Sodium 25 mcg PO DAILY 03/01/22 03/01/22 History Losartan Potassium 100 mg PO DAILY 03/01/22 03/01/22 History Oxybutynin Chloride [Ditropan XL] 10 mg PO BID 03/01/22 03/01/22 History Pregabalin [Lyrica] 150 mg PO TID 03/01/22 03/01/22 History Rivaroxaban [Xarelto] 20 mg PO W/SUPPER 03/01/22 03/01/22 History Sotalol [Betapace] 80 mg PO BID 03/01/22 03/01/22 History buPROPion HCL [Wellbutrin XL] 300 mg PO DAILY 03/01/22 03/01/22 History oxyCODONE HCL [oxyCODONE HCL (IR)] 15 mg PO Q4-6H PRN 03/01/22 03/01/22 History Allergies Allergy/AdvReac Type Severity Reaction Status Date / Time No Known Allergies Allergy Verified 03/01/22 14:32 Physical Exam Vitals: Vital Signs Temp Pulse Pulse Resp BP BP Pulse Ox 03/02/22 14:00 129 H 17 03/02/22 12:00 98.3 F 129 H 17 113/72 96 03/02/22 08:00 98.2 F 129 H 17 116/76 96 03/02/22 04:00 98.2 F 128 H 18 130/89 97 03/02/22 02:00 130 H 18 03/02/22 00:00 98.1 F 130 H 18 127/92 96 03/01/22 20:00 124 H 18 122/90 98 03/01/22 17:00 124 H 22 126/95 96 Intake and Output 03/02/22 03/02/22 03/02/22 06:59 14:59 22:59 Intake Total 600 240 Output Total 2500 Balance 600 -2260 Intake: Oral 600 240 Output: Urine 2500 Other: Voiding Method Indwelling Catheter Urinal # Bowel Movements 1 Weight 90.718 kg Results 03/01/22 12:31 03/01/22 12:31 Cardiac Enzymes 03/01/22 Range/Units 15:22 Troponin I 0.202 H* (0.000-0.034) ng/mL Current Medications Generic Name Dose Route Start Last Admin Trade Name Freq PRN Reason Stop Dose Admin Al Hydroxide/Mg Hydroxide 30 ml 03/02/22 14:33 Mag Hydrox/Al Hydrox/Simeth 30 Ml Cup PO Q4HR PRN GI Upset Alprazolam 1 mg 03/01/22 22:00 03/02/22 09:58 Alprazolam 1 Mg Tab PO 1 mg TID FORTINO Administration Aripiprazole 20 mg 03/02/22 09:00 03/02/22 09:59 Aripiprazole 20 Mg Tab PO 20 mg DAILY FORTINO Administration Aspirin 325 mg 03/02/22 09:00 03/02/22 09:59 Aspirin 325 Mg Tab PO 325 mg DAILY FORTINO Administration Atorvastatin Calcium 20 mg 03/02/22 09:00 03/02/22 09:58 Atorvastatin 20 Mg Tab PO 20 mg DAILY FORTINO Administration Bupropion HCl 300 mg 03/02/22 09:00 03/02/22 09:59 Bupropion Xl 300 Mg Tab.Er.24h PO 300 mg DAILY FORTINO Administration Duloxetine HCl 120 mg 03/02/22 09:00 03/02/22 09:58 Duloxetine Hcl 60 Mg Capsule.Dr PO 120 mg DAILY FORTINO Administration Fluticasone Propionate 1 puff 03/01/22 20:00 03/02/22 08:07 Fluticasone 110 Mcg Inhaler INHALATION 1 puff RT-BID FORTINO Administration Furosemide 40 mg 03/01/22 16:00 03/02/22 09:58 Furosemide 10 Mg/Ml 4 Ml Vial IV 40 mg Q8HR FORTINO Administration Lamotrigine 150 mg 03/01/22 21:00 03/02/22 09:58 Lamotrigine 100 Mg Tab PO 150 mg BID FORTINO Administration Levothyroxine Sodium 25 mcg 03/02/22 06:30 03/02/22 06:38 Levothyroxine 25 Mcg Tab PO 25 mcg DAILY@0630 FORTINO Administration Losartan Potassium 100 mg 03/02/22 09:00 03/02/22 09:58 Losartan 50 Mg Tab PO 100 mg DAILY FORTINO Administration Metoprolol Tartrate 25 mg 03/02/22 02:00 03/02/22 10:09 Metoprolol Tartrate 25 Mg Tab PO 25 mg BID FORTINO Administration Nitroglycerin 0.4 mg 03/01/22 12:13 03/01/22 12:13 Nitroglycerin Sl Tabs 0.4 Mg Tab SUBLINGUAL 0.4 mg ONCE PRN Administration Chest Pain Oxybutynin Chloride 10 mg 03/01/22 21:00 03/02/22 09:59 Oxybutynin 10 Mg Tab.Er.24 PO 10 mg BID FORTINO Administration Oxycodone HCl 15 mg 03/01/22 17:53 Oxycodone Hcl 5 Mg Tab PO Q4H PRN Pain Pregabalin 150 mg 03/01/22 22:00 03/02/22 09:58 Pregabalin 75 Mg Cap PO 150 mg TID FORTINO Administration Rivaroxaban 20 mg 03/02/22 17:30 Rivaroxaban 20 Mg Tab PO W/SUPPER [facility] Protocol Sotalol HCl 80 mg 03/01/22 21:00 03/02/22 09:59 Sotalol 80 Mg Tab PO 80 mg BID FORTINO Administration Intake and Output 03/02/22 03/02/22 03/02/22 06:59 14:59 22:59 Intake Total 600 240 Output Total 2500 Balance 600 -2260 Intake: Oral 600 240 Output: Urine 2500 Other: Voiding Method Indwelling Catheter Urinal # Bowel Movements 1 Weight 90.718 kg Patient Weight 03/03/22 06:59 Weight 90.718 kg 03/01/22 12:31 03/01/22 12:31
[2022-03-02 16:19] LABS: Anisocytosis Slight; Basophils # (A) 0.1 k/uL (0-0.2); Basophils % (A) 1 %; Eosinophils # (A) 0.1 k/uL (0-0.7); Eosinophils % (A) 1 %; HCT 39.8 % (39.0-53.0); HGB 12.1 gm/dL (13.0-17.5); Hypochromasia Slight; Lymphocytes # (A) 0.8 k/uL (1.0-4.8); Lymphocytes % (A) 11 %; MCH 26.4 pg (25.0-35.0); MCHC 30.3 g/dL (31.0-37.0); Mean Platelet Volume 7.6; Monocytes # (A) 0.7 k/uL (0-1.0); Monocytes % (A) 9 %; Neutrophils # (A) 5.6 k/uL (1.3-7.7); Neutrophils % (A) 76 %; Platelet Count 303 k/uL (150-450); RBC 4.57 m/uL (4.30-5.90); RDW 16.3 % (11.5-15.5); WBC 7.3 k/uL (3.8-10.6)
[2022-03-02 16:24] LABS: Albumin 3.1 g/dL (3.5-5.0); Calcium 8.2 mg/dL (8.4-10.2); Phosphorus 3.2 mg/dL (2.5-4.5); Potassium 3.5 mmol/L (3.5-5.1)
[2022-03-02] MEDS: DILTIAZEM 125 MG in SODIUM CHLORIDE 0.9% 100 ML IV SCH (16:55)
[2022-03-02] MEDS: RIVAROXABAN 20 MG TAB PO SCH (17:00)
[2022-03-03] MEDS: SOTALOL 80 MG TAB PO SCH ×2 (00:34→12:14)
[2022-03-03] MEDS: ALPRAZolam 1 MG TAB PO SCH ×4 (00:34→21:20)
[2022-03-03] MEDS: FUROSEMIDE 10 MG/ML 4 ML VIAL IV SCH ×4 (00:35→23:08)
[2022-03-03] MEDS: DILTIAZEM 125 MG in SODIUM CHLORIDE 0.9% 100 ML IV SCH ×2 (04:10→18:13)
[2022-03-03] MEDS: LEVOTHYROXINE 25 MCG TAB PO SCH (05:42)
[2022-03-03] MEDS: FLUTICASONE 110 MCG INHALER INHALATION SCH ×2 (07:23→19:10)
[2022-03-03] MEDS: buPROPion XL 300 MG TAB.ER.24H PO SCH (08:22)
[2022-03-03] MEDS: METOPROLOL TARTRATE 25 MG TAB PO SCH ×2 (08:23→23:08)
[2022-03-03] MEDS: ATORVASTATIN 20 MG TAB PO SCH (08:23)
[2022-03-03] MEDS: PREGABALIN 75 MG CAP PO SCH ×3 (08:23→22:08)
[2022-03-03] MEDS: OXYBUTYNIN 10 MG TAB.ER.24 PO SCH ×2 (08:23→22:09)
[2022-03-03] MEDS: DULoxetine HCL 60 MG CAPSULE.DR PO SCH (08:23)
[2022-03-03] MEDS: ASPIRIN 325 MG TAB PO SCH (08:24)
[2022-03-03] MEDS: lamoTRIgine 100 MG TAB PO SCH ×2 (08:24→22:08)
[2022-03-03 10:58] LABS: Glucose,Whole Blood 114 mg/dL (75-99)
[2022-03-03] MEDS ORDERED: SODIUM CHLORIDE 0.9% 500 ML 500 ML IV ONE ×2 (11:14→18:53)
--- NOTE | 2022-03-03 11:49 | XR ---
EXAMINATION TYPE: XR chest 1V portable DATE OF EXAM: 03/03/2022 Comparison: 03/01/2022 Clinical History: 76 year-old male shortness of breath Findings: Heart mildly enlarged. No consolidation or pleural effusion. No airspace opacity. Impression: There is cardiomegaly but no estee CHF seen at this time.
[2022-03-03 12:02] LABS: Calcium 7.7 mg/dL (8.4-10.2); Potassium 3.5 mmol/L (3.5-5.1)
[2022-03-03 12:04] LABS: Anisocytosis Slight; Basophils # (A) 0.1 k/uL (0-0.2); Basophils % (A) 1 %; Eosinophils # (A) 0.1 k/uL (0-0.7); Eosinophils % (A) 1 %; HCT 37.8 % (39.0-53.0); HGB 11.7 gm/dL (13.0-17.5); Hypochromasia Moderate; Lymphocytes # (A) 1.5 k/uL (1.0-4.8); Lymphocytes % (A) 17 %; MCH 27.2 pg (25.0-35.0); MCHC 30.9 g/dL (31.0-37.0); MCV 87.8 fL (80.0-100.0); Mean Platelet Volume 7.2; Monocytes # (A) 0.8 k/uL (0-1.0); Monocytes % (A) 9 %; Neutrophils # (A) 6.3 k/uL (1.3-7.7); Neutrophils % (A) 69 %; Platelet Count 289 k/uL (150-450); RBC 4.31 m/uL (4.30-5.90); RDW 16.8 % (11.5-15.5); WBC 9.2 k/uL (3.8-10.6)
[2022-03-03] MEDS: LOSARTAN 50 MG TAB PO SCH (12:14)
--- NOTE | 2022-03-03 13:11 | HP ---
HISTORY AND PHYSICAL CHIEF COMPLAINT: Acute shortness of breath. HISTORY OF PRESENT ILLNESS: This is another admission for this 76-year-old white male. He has a long-standing history of coronary artery disease and cardiomyopathy. He receives most of his care at [facility]. He also has numerous psychiatric problems, for which he is also treated out of town. He also has a problem with renal failure. He came into the emergency room in acute respiratory distress and pulmonary edema. Review of systems cannot be obtained due to his shortness of breath and lethargy. Past medical history, family history, and personal and social histories are not available at this time, but he does have an extensive history of heart disease. PHYSICAL EXAMINATION: Blood pressure is 100/55 with a pulse of 132, and he is currently on BiPAP. He is afebrile. Physical exam is otherwise unremarkable. Head, ears, eyes, nose, mouth and throat are unremarkable. Chest demonstrates poor breath sounds with extensive rales and rhonchi throughout. The cardiac exam demonstrates an irregularly irregular tachycardia. The abdomen is protuberant and soft without masses. Extremities are normal except for some edema in both lower legs. He is admitted to the hospital with the diagnoses: 1. Acute congestive heart failure. 2. History of coronary artery disease. 3. History of cardiomyopathy. 4. Chronic kidney disease. PLAN: 1. Bedrest. 2. IV fluids. 3. Diuresis. 4. Cardiology consult. LINNEA / LYNDSEY: [id number] /
--- NOTE | 2022-03-03 13:22 | PN ---
PROGRESS NOTE DATE OF SERVICE: 03/02/2022 CHIEF COMPLAINT: Acute congestive heart failure and pulmonary edema. HISTORY OF PRESENT ILLNESS: This gentleman is doing better. He has not had any pain. Shortness of breath has improved. He has been diuresed. PHYSICAL EXAMINATION: His chest still demonstrates occasional wheezing and scattered rales. Cardiac exam demonstrates tachycardia. His abdomen is protuberant, soft and nontender. IMPRESSION: 1. Acute congestive heart failure. 2. Elevated troponin. 3. Atrial fibrillation. 4. Tachycardia. PLAN: Continue with diuresis. He is being followed by Cardiology; his heart rate remains around 120 to 130, and this is being addressed. MMODL / IJN: [id number] /
--- NOTE | 2022-03-03 13:26 | PN ---
PROGRESS NOTE DATE OF SERVICE: 03/03/2022 CHIEF COMPLAINT: Acute congestive heart failure. HISTORY OF PRESENT ILLNESS: This gentleman is having difficulty. He is tachycardic with atrial fibrillation at a rate of around 130. His blood pressure is not being supported very well. He is running sometimes blood pressures down in the 70s and 80s. PHYSICAL EXAMINATION: He is lethargic. He was just seen by the A-team. Cardiac exam demonstrates tachycardia. Breath sounds are diminished with occasional rales. IMPRESSION: 1. Acute congestive heart failure. 2. Atrial fibrillation with rapid ventricular response. 3. Hypotension. 4. Renal failure. PLAN: He is being seen by Cardiology and decisions will be forthcoming regarding how to manage his hypotension and tachycardia. MMODL / IJN: [id number] /
--- NOTE | 2022-03-03 16:28 | P.PN ---
Subjective HISTORY OF PRESENTING ILLNESS Patient is a pleasant 77-year-old male with history of hypertension, hyperlipidemia, obesity, atrial fibrillation who presents secondary to worsening dyspnea over the last 3-4 weeks. He states he normally follows with Dr. Kraft from [facility]. He was scheduled to get an echo done however had a last minute trip to [place] and therefore went to [place] instead. He admits he was running out of his medications and thought he could get some of the medications in [place]. Therefore he has been out of number of his medications including his blood pressure meds as well as sotalol. Since coming back he has had pr ogressive dyspnea with 6 pillow orthopnea and increased lower extremity edema and therefore eventually had respiratory distress and EMS was called and patient found to be hypoxic in the 70s. Initial EKG read out as sinus rhythm, sinus tachycardia 130 bpm however has persistently been tachycardic at 1:30 without any variation. Appears concerning for atrial flutter with RVR. He was having significant chest pain and pressure yesterday when he was in respiratory distress however currently improved. He states he had a heart catheterization 5 years ago secondary to abnormal stress test and was told that his coronary arteries are "wide open". Initial lactic acid 4.3, total bilirubin 1.7, tropo juan carlos 0.16, 0.2, proBNP 18,900, TSH 5.1, creatinine 1.37 with baseline appearing to be 1.0 from December, white blood cell count 10.1. Initial blood pressure was in the 200s over 130 range however restarted on prior medications and better controlled. He states he is feeling somewhat better currently however still continued dyspnea and lower extremity edema. Denies any further chest pain. 03/03 Patient seen and examined. Patient denies any chest pain or pressure. He was started on Cardizem drip yesterday secondary to atrial flutter with RVR however became hypotensive. He did have good urine output with approximately -4 L more or less 24 hours. He has had however increased creatinine from 1.4 up to 2.9. A team was called this morning with another hypotensive episode. Heart rates continue to be in the low 100s to 130s. Remains in atrial flutter with variable conduction. Lactic acid has been normal. He has been somewhat more confused recently. He was feeling lightheaded previously during the hypotensive episode and had some chest discomfort. PHYSICAL EXAMINATION Vital signs reviewed. CONSTITUTIONAL: No apparent distress, chornically ill appearing. Mild accessory muscle use, appears more confused, very hoarse voice HEENT: Head is normocephalic. Pupils are equal, round. Sclerae anicteric. Mucous membranes of the mouth are moist. No JVD. No carotid bruit. CHEST EXAMINATION: +crackles at bases, No chest wall tenderness is noted on palpation or with deep breathing. HEART EXAMINATION: tachy rate and regular rhythm. S1, S2 heard. No murmurs, gallops or rub. ABDOMEN: Soft, nontender. Positive bowel sounds. EXTREMITIES: 2+ peripheral pulses, 2+ lower extremity edema and no calf tenderness. NEUROLOGIC EXAMINATION: Patient is awake, alert and oriented x3. ASSESSMENT 1. Acute on chronic heart failure, unclear systolic or diastolic 2. Atrial flutter with RVR 3. Initial hypertensive emergency with blood pressure 200s over 130s improved, now hypotensive 4. Acute on chronic kidney injury 5. Medical noncompliance, patient recently ran out of numerous medications 6. Paroxysmal atrial fibrillation 7. Non-STEMI, likely type II mechanism related to hypoxia, hypertension, heart failure. Reported normal heart catheterization previously 8. Hypotension, rule out sepsis versus cardiogenic shock versus other PLAN Patient with initial heart failure symptoms with hypertensive urgency and volume overload on exam. Patient restarted on a number of his and some of hypotension may be medication effect. Stop all antihypertensives at this point. Stop IV diuresis and monitor creatinine closely. Patient with some accessory muscle use and ill-appearing. Discussed with ICU doctor and we will transfer to ICU for closer monitoring. Bedside echo shows EF at least 45-50% without significant aortic or mitral regurgitation. Small pericardial effusion however no signi ficant tamponade noted. We will monitor patient's progress and may consider rhythm control pending vitals and progress. Objective - Vital Signs Vital signs: Vital Signs Temp 97.0 F L 03/03/22 08:00 Pulse 108 H 03/03/22 13:04 Resp 16 03/03/22 13:04 BP 88/48 03/03/22 15:15 Pulse Ox 94 L 03/03/22 10:30 Intake & Output 03/02/22 03/03/22 03/03/22 18:59 06:59 18:59 Intake Total 242.5 260 Output Total 3700 800 Balance -3457.5 -800 260 Weight 90.718 kg 96.5 kg Intake: IV 20 Invasive Line 3 20 Intake, IV Titration 2.5 Amount Diltiazem 125 mg In 2.5 Sodium Chloride 0.9% 100 ml @ 10 MG/HR 10 mls/hr IV .[id number] [facility] Rx#: [id number] Oral 240 240 Output: Urine 3700 800 Other: Voiding Method Urinal Urinal Urinal # Bowel Movements 1 3 - Labs CBC & Chem 7: 03/03/22 11:35 03/03/22 11:35 Labs: Abnormal Lab Results - Last 24 Hours (Table) 03/02/22 03/02/22 03/03/22 Range/Units 16:03 16:03 10:57 Hgb 12.1 L (13.0-17.5) gm/dL Hct (39.0-53.0) % MCHC 30.3 L (31.0-37.0) g/dL RDW 16.3 H (11.5-15.5) % Lymphocytes # 0.8 L (1.0-4.8) k/uL Sodium 135 L (137-145) mmol/L Chloride 95 L (98-107) mmol/L Carbon Dioxide 33 H (22-30) mmol/L BUN (9-20) mg/dL Creatinine 1.44 H (0.66-1.25) mg/dL Glucose 130 H (74-99) mg/dL POC Glucose (mg/dL) 114 H (75-99) mg/dL Calcium 8.2 L (8.4-10.2) mg/dL Albumin 3.1 L (3.5-5.0) g/dL 03/03/22 03/03/22 Range/Units 11:35 11:35 Hgb 11.7 L (13.0-17.5) gm/dL Hct 37.8 L (39.0-53.0) % MCHC 30.9 L (31.0-37.0) g/dL RDW 16.8 H (11.5-15.5) % Lymphocytes # (1.0-4.8) k/uL Sodium 133 L (137-145) mmol/L Chloride 96 L (98-107) mmol/L Carbon Dioxide 31 H (22-30) mmol/L BUN 32 H (9-20) mg/dL Creatinine 2.94 H (0.66-1.25) mg/dL Glucose 104 H (74-99) mg/dL POC Glucose (mg/dL) (75-99) mg/dL Calcium 7.7 L (8.4-10.2) mg/dL Albumin (3.5-5.0) g/dL
[2022-03-03 18:10] LABS: Glucose,Whole Blood 89 mg/dL (75-99)
[2022-03-03] MEDS: RIVAROXABAN 20 MG TAB PO SCH (18:17)
[2022-03-03] MEDS: NOREPINEPHRINE 4 MG in SODIUM CHLORIDE 0.9% 250 ML IV SCH (19:21)
[2022-03-04] MEDS: DILTIAZEM 125 MG in SODIUM CHLORIDE 0.9% 100 ML IV SCH ×2 (03:43→15:22)
[2022-03-04] MEDS: LEVOTHYROXINE 25 MCG TAB PO SCH (06:41)
[2022-03-04 07:12] LABS: Anisocytosis Slight; HCT 38.1 % (39.0-53.0); HGB 11.8 gm/dL (13.0-17.5); Hypochromasia Moderate; MCH 27.5 pg (25.0-35.0); MCHC 30.9 g/dL (31.0-37.0); Mean Platelet Volume 8.5; Platelet Count 259 k/uL (150-450); RBC 4.28 m/uL (4.30-5.90); RDW 16.2 % (11.5-15.5); WBC 8.6 k/uL (3.8-10.6)
[2022-03-04 07:21] LABS: Calcium 7.9 mg/dL (8.4-10.2); Potassium 3.8 mmol/L (3.5-5.1); Total Bilirubin 0.9 mg/dL (0.2-1.3); Total Protein 5.6 g/dL (6.3-8.2)
[2022-03-04] MEDS: ALPRAZolam 1 MG TAB PO SCH ×3 (07:49→21:55)
[2022-03-04] MEDS: ASPIRIN 325 MG TAB PO SCH (08:23)
[2022-03-04] MEDS: METOPROLOL TARTRATE 25 MG TAB PO SCH ×3 (08:23→21:00)
[2022-03-04] MEDS: ATORVASTATIN 20 MG TAB PO SCH (08:23)
[2022-03-04] MEDS: PREGABALIN 75 MG CAP PO SCH ×3 (08:23→22:00)
[2022-03-04] MEDS: FLUTICASONE 110 MCG INHALER INHALATION SCH ×2 (08:25→19:46)
[2022-03-04] MEDS: FUROSEMIDE 10 MG/ML 4 ML VIAL IV SCH ×2 (08:32→10:18)
[2022-03-04] MEDS: lamoTRIgine 100 MG TAB PO SCH ×3 (08:33→21:00)
--- NOTE | 2022-03-04 08:52 | XR ---
EXAMINATION TYPE: XR chest 1V portable DATE OF EXAM: 03/04/2022 COMPARISON: 03/03/2022 HISTORY: Shortness of breath TECHNIQUE: Single frontal view of the chest is obtained. FINDINGS: Heart size prominent. There is left lower lobe infiltrate and bilateral small effusion. No pneumothorax. Atherosclerotic change aorta. Hypertrophic and degenerative change spine. IMPRESSION: 1. Cardiomegaly with left lower lobe infiltrate and small bilateral effusion. Correlate for pneumonia otherwise consider mild venous congestion
--- NOTE | 2022-03-04 09:38 | P.PN ---
Subjective HISTORY OF PRESENTING ILLNESS Patient is a pleasant 77-year-old male with history of hypertension, hyperlipidemia, obesity, atrial fibrillation who presents secondary to worsening dyspnea over the last 3-4 weeks. He states he normally follows with Dr. Kraft from [facility]. He was scheduled to get an echo done however had a last minute trip to [place] and therefore went to [place] instead. He admits he was running out of his medications and thought he could get some of the medications in [place]. Therefore he has been out of number of his medications including his blood pressure meds as well as sotalol. Since coming back he has had pr ogressive dyspnea with 6 pillow orthopnea and increased lower extremity edema and therefore eventually had respiratory distress and EMS was called and patient found to be hypoxic in the 70s. Initial EKG read out as sinus rhythm, sinus tachycardia 130 bpm however has persistently been tachycardic at 1:30 without any variation. Appears concerning for atrial flutter with RVR. He was having significant chest pain and pressure yesterday when he was in respiratory distress however currently improved. He states he had a heart catheterization 5 years ago secondary to abnormal stress test and was told that his coronary arteries are "wide open". Initial lactic acid 4.3, total bilirubin 1.7, tropo juan carlos 0.16, 0.2, proBNP 18,900, TSH 5.1, creatinine 1.37 with baseline appearing to be 1.0 from December, white blood cell count 10.1. Initial blood pressure was in the 200s over 130 range however restarted on prior medications and better controlled. He states he is feeling somewhat better currently however still continued dyspnea and lower extremity edema. Denies any further chest pain. 03/03 Patient seen and examined. Patient denies any chest pain or pressure. He was started on Cardizem drip yesterday secondary to atrial flutter with RVR however became hypotensive. He did have good urine output with approximately -4 L more or less 24 hours. He has had however increased creatinine from 1.4 up to 2.9. A team was called this morning with another hypotensive episode. Heart rates continue to be in the low 100s to 130s. Remains in atrial flutter with variable conduction. Lactic acid has been normal. He has been somewhat more confused recently. He was feeling lightheaded previously during the hypotensive episode and had some chest discomfort. 03/04 Patient seen and examined. Patient transferred to ICU briefly placed on the Levophed and given additional IV fluid bolus yesterday with some improvement in blood pressure. Still has been borderline blood pressures and briefly off of norepinephrine however currently back on 0.01. Denies any chest pain or pressure. Admits to some lower abdominal mild pain. Denies any shortness breath. Still appears mildly confused. Creatinine somewhat improved 2.9-2.5. Lasix was decreased to once a day. PHYSICAL EXAMINATION Vital signs reviewed. CONSTITUTIONAL: No apparent distress, chornically ill appearing. Mild accessory muscle use, appears more confused, very hoarse voice HEENT: Head is normocephalic. Pupils are equal, round. Sclerae anicteric. Mucous membranes of the mouth are moist. No JVD. No carotid bruit. CHEST EXAMINATION: +crackles at bases, No chest wall tenderness is noted on palpation or with deep breathing. HEART EXAMINATION: tachy rate and regular rhythm. S1, S2 heard. No murmurs, gallops or rub. ABDOMEN: Soft, nontender. Positive bowel sounds. EXTREMITIES: 2+ peripheral pulses, 1+ lower extremity edema and no calf tenderness. NEUROLOGIC EXAMINATION: Patient is awake, alert and oriented x3. ASSESSMENT 1. Acute on chronic heart failure, unclear systolic or diastolic 2. Atrial flutter with RVR 3. Initial hypertensive emergency with blood pressure 200s over 130s improved, now hypotensive 4. Acute on chronic kidney injury 5. Medical noncompliance, patient recently ran out of numerous medications 6. Paroxysmal atrial fibrillation 7. Non-STEMI, likely type II mechanism related to hypoxia, hypertension, heart failure. Reported normal heart catheterization previously 8. Hypotension, rule out sepsis versus cardiogenic shock versus medication effect PLAN Patient still with 1+ lower extremity edema and has been having some urine output. Creatinine mildly improved. Agree with decreasing Lasix and may even consider giving some fluid back pending progress. Await 2-D echo. May consider PANDA cardioversion however optimize patient for now. Hold losartan. Continue with metoprolol as tolerated. Further recommendations to follow. Objective - Vital Signs Vital signs: Vital Signs Temp 97.8 F 03/04/22 08:00 Pulse 118 H 03/04/22 08:45 Resp 19 03/04/22 08:45 BP 78/58 03/04/22 08:45 Pulse Ox 96 03/04/22 08:45 Intake & Output 03/03/22 03/04/22 03/04/22 18:59 06:59 18:59 Intake Total 760 314.124 50 Output Total 585 135 Balance 760 -270.876 -85 Weight 144 kg Intake: IV 20 170 50 .9 KVO 110 30 Invasive Line 3 20 60 20 Intake, IV Titration 500 144.124 0 Amount Norepinephrine 4 mg In 144.124 0 Sodium Chloride 0.9% 250 ml @ 0.05 MCG/KG/MIN 18. 383 mls/hr IV .[id number] [facility] Rx#:[id number] Sodium Chloride 0.9% 500 500 ml 500 ml @ 999 mls/hr IV .Q31M [facility] Rx#:[id number] Oral 240 Output: Urine 585 135 Other: Voiding Method Urinal Indwelling Catheter Indwelling Catheter # Voids 0 - Labs CBC & Chem 7: 03/04/22 05:46 03/04/22 05:46 Labs: Abnormal Lab Results - Last 24 Hours (Table) 03/03/22 03/03/22 03/03/22 Range/Units 10:57 11:35 11:35 RBC (4.30-5.90) m/uL Hgb 11.7 L (13.0-17.5) gm/dL Hct 37.8 L (39.0-53.0) % MCHC 30.9 L (31.0-37.0) g/dL RDW 16.8 H (11.5-15.5) % Sodium 133 L (137-145) mmol/L Chloride 96 L (98-107) mmol/L Carbon Dioxide 31 H (22-30) mmol/L BUN 32 H (9-20) mg/dL Creatinine 2.94 H (0.66-1.25) mg/dL Glucose 104 H (74-99) mg/dL POC Glucose (mg/dL) 114 H (75-99) mg/dL Calcium 7.7 L (8.4-10.2) mg/dL Total Protein (6.3-8.2) g/dL Albumin (3.5-5.0) g/dL 03/04/22 03/04/22 Range/Units 05:46 05:46 RBC 4.28 L (4.30-5.90) m/uL Hgb 11.8 L (13.0-17.5) gm/dL Hct 38.1 L (39.0-53.0) % MCHC 30.9 L (31.0-37.0) g/dL RDW 16.2 H (11.5-15.5) % Sodium 136 L (137-145) mmol/L Chloride (98-107) mmol/L Carbon Dioxide (22-30) mmol/L BUN 34 H (9-20) mg/dL Creatinine 2.51 H (0.66-1.25) mg/dL Glucose (74-99) mg/dL POC Glucose (mg/dL) (75-99) mg/dL Calcium 7.9 L (8.4-10.2) mg/dL Total Protein 5.6 L (6.3-8.2) g/dL Albumin 3.0 L (3.5-5.0) g/dL
[2022-03-04] MEDS: DULoxetine HCL 60 MG CAPSULE.DR PO SCH (10:18)
[2022-03-04] MEDS: buPROPion XL 300 MG TAB.ER.24H PO SCH (10:18)
--- NOTE | 2022-03-04 10:26 | P.CNPUL ---
History of Present Illness Consult date: 03/04/22 Requesting physician: Enoch Galarza Reason for consult: other (Acute congestive heart failure) Chief complaint: Shortness of breath History of present illness: This is a 77-year-old white male with history of multiple medical problems including chronic atrial fibrillation, hypertension, dyslipidemia, patient was admitted to the hospital on 03/01 with 3 week history of shortness of breath, patient was in [place] recently, round out of his cardiac medications, and his presentation to the hospital was typical of acute congestive heart failure complaining of shortness of breath, orthopnea, increased swelling in the lower extremities, and when EMS arrived he was hypoxic and O2 saturation in the 70s. In the ER the patient was noted to be in atrial flutter with RVR. Patient was seen by cardiology on consultation, felt that the patient had acute on chronic heart failure, echocardiogram is pending, he was also noted to have narrow complex tachycardia, initially his blood pressure was extremely high over 200 systolic, he was also noted to have acute on chronic kidney injury, and possibly non-ST elevation myocardial infarction. At any rate patient was treated with diuretics, he was placed on Cardizem drip, however yesterday his condition deteriorated, and he was transferred to the ICU. Hence this consult was initiated. I saw the patient this morning, he is on 2 L nasal cannula, O2 sats is 96%, he required norepinephrine at 0.01 mcg/kg/m, patient has been diuresing significantly, and her blood pressure is marginal this morning, hence I recommended that we cut down the Lasix to 40 mg daily chest x-ray is showing improvement considering her blood pressure is marginal I held his Lasix this morning. Once his blood pressure improves, we can potentially discontinue his norepinephrine. Losartan was also placed on hold by cardiology for his low blood pressure. He is now on 2 L nasal cannula, O2 saturation is 94-96%. Remains a little tachycardic, heart rate is 112, blood pressure was in the 70s earlier, now it is 91/63. WBC count is 8.6 hemoglobin 11.8 electrolytes are normal his BUN is 34 creatinine is down from 2.94-2.51 this morning Review of Systems CONSTITUTIONAL: Negative. CARDIOVASCULAR: As noted in HPI. RESPIRATORY: As noted in HPI. GASTROINTESTINAL: Negative MUSCULOSKELETAL: Negative. NEUROLOGIC: Negative ENDOCRINE: Negative GENITOURINARY: Negative. HEMATOLOGIC: Negative Psychiatric: History of depression Skin: Negative Past Medical History Past Medical History: Atrial Fibrillation, COPD, Hypertension, Osteoarthritis (OA), Sleep Apnea/CPAP/BIPAP Additional Past Medical History / Comment(s): 03/09/15 Pt presented to [facility] ER via EMS. He was suppose to have a colonoscopy today but when they hooked him up to EKG he was in Afib. Other HX: 01/28/15 seen in [facility] ER after a fall and subsequent. Pt has hx of prostate cancer with prostatectomy. Neuropathy, Cardiac cath, History of Any Multi-Drug Resistant Organisms: None Reported Past Surgical History: Back Surgery, Joint Replacement Additional Past Surgical History / Comment(s): (B) hip replecement, (B)knee replacement, laminectomy x6, prostatectomy. Past Anesthesia/Blood Transfusion Reactions: No Reported Reaction Additional Past Anesthesia/Blood Transfusion Reaction / Comment(s): Pt has never recieved blood. Past Psychological History: Depression Additional Psychological History / Comment(s): Pt takes med for depression and is seen by a psychiatrist. He feels his depression is under control. He lives with family. He is independent. He drives a car. Smoking Status: Never smoker Past Alcohol Use History: Occasional Past Drug Use History: None Reported - Past Family History Father Family Medical History: Congestive Heart Failure (CHF), Hypertension, Myocardial Infarction (NV) Additional Family Medical History / Comment(s): Father of a NV at age 89 yrs. Mother Family Medical History: Cancer Additional Family Medical History / Comment(s): Mother had multiple myeloma. She at age 68 yrs. Medications and Allergies Home Medications Medication Instructions Recorded Confirmed Type DULoxetine HCL [Cymbalta] 120 mg PO DAILY 01/28/15 03/01/22 History lamoTRIgine [LaMICtal] 150 mg PO BID 01/28/15 03/01/22 History ALPRAZolam [Xanax] 1 mg PO TID 03/01/22 03/01/22 History ARIPiprazole [Abilify] 10 - 20 mg PO DAILY 03/01/22 03/01/22 History Albuterol Sulfate [Proair Hfa] 1 puff INHALATION RT-Q4H PRN 03/01/22 03/01/22 History Atorvastatin [Lipitor] 20 mg PO DAILY 03/01/22 03/01/22 History Beclomethasone Dip 80 Mcg/Puff 1 puff INHALATION RT-BID 03/01/22 03/01/22 History [Qvar 80 mcg] Ergocalciferol [Vitamin D2 (1250 1,250 mcg PO Q7D 03/01/22 03/01/22 History Mcg = 71098 Iu)] Levothyroxine Sodium 25 mcg PO DAILY 03/01/22 03/01/22 History Losartan Potassium 100 mg PO DAILY 03/01/22 03/01/22 History Oxybutynin Chloride [Ditropan XL] 10 mg PO BID 03/01/22 03/01/22 History Pregabalin [Lyrica] 150 mg PO TID 03/01/22 03/01/22 History Rivaroxaban [Xarelto] 20 mg PO W/SUPPER 03/01/22 03/01/22 History Sotalol [Betapace] 80 mg PO BID 03/01/22 03/01/22 History buPROPion HCL [Wellbutrin XL] 300 mg PO DAILY 03/01/22 03/01/22 History oxyCODONE HCL [oxyCODONE HCL (IR)] 15 mg PO Q4-6H PRN 03/01/22 03/01/22 History Allergies Allergy/AdvReac Type Severity Reaction Status Date / Time No Known Allergies Allergy Verified 03/01/22 14:32 Physical Exam Vitals: Vital Signs Temp Pulse Pulse Resp BP BP Pulse Ox 03/04/22 08:45 118 H 19 78/58 96 03/04/22 08:30 120 H 18 97/69 95 03/04/22 08:15 118 H 24 97/69 94 L 03/04/22 08:00 97.8 F 117 H 21 85/69 93 L 03/04/22 07:45 118 H 20 98/62 95 03/04/22 07:30 118 H 22 102/72 03/04/22 07:15 117 H 29 H 95/65 94 L 03/04/22 07:00 120 H 23 95/65 95 03/04/22 06:45 118 H 29 H 111/70 95 03/04/22 06:30 120 H 18 99/64 93 L 03/04/22 06:15 121 H 22 108/64 03/04/22 06:00 121 H 19 103/81 95 03/04/22 05:45 118 H 19 98/60 96 03/04/22 05:30 98.1 F 118 H 21 123/73 87 L 03/04/22 05:15 87 26 H 106/67 96 03/04/22 05:00 92 19 97/73 03/04/22 04:45 120 H 34 H 109/70 96 03/04/22 04:30 118 H 17 86/58 96 03/04/22 04:15 118 H 19 117/69 96 03/04/22 04:00 120 H 108 H 19 126/108 96 03/04/22 03:45 120 H 25 H 106/47 95 03/04/22 03:30 118 H 30 H 119/72 92 L 03/04/22 03:15 102 H 21 96/67 91 L 03/04/22 03:00 117 H 21 114/75 96 03/04/22 02:45 121 H 31 H 107/72 96 03/04/22 02:30 103 H 20 104/69 97 03/04/22 02:15 117 H 24 91/81 96 03/04/22 02:00 117 H 18 133/119 96 03/04/22 01:45 120 H 22 114/81 96 03/04/22 01:30 118 H 15 108/79 96 03/04/22 01:15 98.5 F 94 30 H 109/88 96 03/04/22 01:00 120 H 18 107/75 96 03/04/22 00:45 118 H 21 107/71 03/04/22 00:30 120 H 22 106/66 96 03/04/22 00:15 120 H 21 108/74 96 03/04/22 00:00 120 H 108 H 21 99/69 95 03/03/22 23:45 102 H 21 110/83 95 03/03/22 23:30 101 H 21 100/75 96 03/03/22 23:15 104 H 20 110/86 97 03/03/22 23:12 96 11 L 103/66 96 03/03/22 23:00 95 16 103/66 94 L 03/03/22 22:45 118 H 22 116/77 96 03/03/22 22:30 118 H 20 106/88 96 03/03/22 22:15 117 H 24 113/79 95 03/03/22 22:00 102 H 21 110/71 95 03/03/22 21:45 117 H 20 110/69 96 03/03/22 21:30 118 H 23 88/68 95 03/03/22 21:15 100 22 106/73 94 L 03/03/22 21:00 116 H 20 116/79 95 03/03/22 20:45 102 H 25 H 112/79 96 03/03/22 20:30 116 H 17 110/74 95 03/03/22 20:15 90 25 H 99/74 96 03/03/22 20:00 98.8 F 86 108 H 24 107/70 95 03/03/22 19:45 108 H 25 H 91/57 94 L 03/03/22 19:30 83 22 77/57 95 03/03/22 19:15 76 22 71/46 03/03/22 19:00 108 H 66/43 94 L 03/03/22 18:50 109 H 66/43 94 L 03/03/22 18:40 108 H 142/87 94 L 03/03/22 18:30 101/76 93 L 03/03/22 18:20 75 13 101/76 96 03/03/22 18:10 75 22 94 L 03/03/22 18:07 81 34 H 94 L 03/03/22 15:15 88/48 03/03/22 13:04 108 H 16 03/03/22 11:15 129/53 03/03/22 10:30 108 H 16 76/48 94 L Intake and Output 03/03/22 03/04/22 03/04/22 22:59 06:59 14:59 Intake Total 635.872 198.252 50 Output Total 125 460 135 Balance 510.872 -261.748 -85 Intake: IV 70 120 50 .9 KVO 30 80 30 Invasive Line 3 40 40 20 Intake, IV Titration 565.872 78.252 0 Amount Norepinephrine 4 mg In 65.872 78.252 0 Sodium Chloride 0.9% 250 ml @ 0.05 MCG/KG/MIN 18. 383 mls/hr IV .[id number] [facility] Rx#:[id number] Sodium Chloride 0.9% 500 500 ml 500 ml @ 999 mls/hr IV .Q31M ONE Rx#:[id number] Output: Urine 125 460 135 Other: Voiding Method Urinal Indwelling Catheter Indwelling Catheter # Voids 0 Weight 144 kg Physical Exam: Revealed a 76-year-old white male, in no distress, on 2 L nasal cannula. Head: Atraumatic, normocephalic. HEENT:[Neck is supple.] [No neck masses.] [No thyromegaly.] [No JVD.] Chest: [Symmetrical chest expansion, final crackles at the bases. No rhonchi no wheezes. Cardiac Exam: Tachycardic, regular rhythm, distant S1 and S2, no S3 gallop. Abdomen: [Soft, nontender, no megaly, no rebound, no guarding, normal bowel sounds.] Extremities: [No clubbing, 1+ bipedal edema, no cyanosis.] Good pulses bilaterally. Neurological Exam: Alert and oriented 3 focal deficits. Psychiatric: Normal mood affect and normal mental status examination. Skin: No rashes. Musculoskeletal: No deformities and no limitation in range of motion Results - Laboratory Findings CBC and BMP: 03/04/22 05:46 03/04/22 05:46 PT/INR, D-dimer PT 12.4 sec (9.0-12.0) H 03/01/22 12:31 INR 1.2 (<1.2) H 03/01/22 12:31 Abnormal lab findings: Abnormal Labs 03/01/22 03/01/22 03/01/22 12:23 12:31 12:31 RBC Hgb Hct MCHC 30.4 L RDW 16.6 H Lymphocytes # PT 12.4 H INR 1.2 H Sodium Potassium Chloride Carbon Dioxide BUN Creatinine Glucose POC Glucose (mg/dL) 137 H Plasma Lactic Acid Caden Calcium Total Bilirubin Troponin I Total Protein Albumin TSH 03/01/22 03/01/22 03/01/22 12:31 12:31 12:31 RBC Hgb Hct MCHC RDW Lymphocytes # PT INR Sodium Potassium 5.6 H Chloride Carbon Dioxide BUN Creatinine 1.37 H Glucose 142 H POC Glucose (mg/dL) Plasma Lactic Acid Caden Calcium Total Bilirubin 1.7 H Troponin I 0.160 H* Total Protein Albumin TSH 5.120 H 03/01/22 03/01/22 03/02/22 12:37 15:22 16:03 RBC Hgb 12.1 L Hct MCHC 30.3 L RDW 16.3 H Lymphocytes # 0.8 L PT INR Sodium Potassium Chloride Carbon Dioxide BUN Creatinine Glucose POC Glucose (mg/dL) Plasma Lactic Acid Caden 4.3 H* Calcium Total Bilirubin Troponin I 0.202 H* Total Protein Albumin [facility] 03/02/22 03/03/22 03/03/22 16:03 10:57 11:35 RBC Hgb 11.7 L Hct 37.8 L MCHC 30.9 L RDW 16.8 H Lymphocytes # PT INR Sodium 135 L Potassium Chloride 95 L Carbon Dioxide 33 H BUN Creatinine 1.44 H Glucose 130 H POC Glucose (mg/dL) 114 H Plasma Lactic Acid Caden Calcium 8.2 L Total Bilirubin Troponin I Total Protein Albumin 3.1 L [facility] 03/03/22 03/04/22 03/04/22 11:35 05:46 05:46 RBC 4.28 L Hgb 11.8 L Hct 38.1 L MCHC 30.9 L RDW 16.2 H Lymphocytes # PT INR Sodium 133 L 136 L Potassium Chloride 96 L Carbon Dioxide 31 H BUN 32 H 34 H Creatinine 2.94 H 2.51 H Glucose 104 H POC Glucose (mg/dL) Plasma Lactic Acid Caden Calcium 7.7 L 7.9 L Total Bilirubin Troponin I Total Protein 5.6 L Albumin 3.0 L TSH - Diagnostic Findings Chest x-ray: image reviewed (Chest x-ray showed cardiomegaly, interstitial edema, small bilateral effusions, consistent with CHF.) Assessment and Plan Assessment: Impression: Acute hypoxic respiratory failure secondary to acute on chronic heart failure, not clear whether this is systolic or diastolic, echocardiogram is pending. Paroxysmal atrial fibrillation with RVR. Patient came in with atrial flutter with RVR. On his initial presentation. Possible non-ST elevation myocardial infarction Acute on chronic kidney injury Hypertensive emergency on presentation, resolved, patient is now hypotensive mostly secondary to medications. And excessive diuresis. Hypotension, medications induced and suspect overdiuresis. History of obstructive sleep apnea syndrome History of prostate cancer and previous prostatectomy Idiopathic neuropathy Recommendation: Continue present medications as noted Continue to monitor in the ICU for the next 24 hours Continue to monitor blood pressure cut down on diuretics for now Hold blood pressure medications as already done by cardiology Titrate and discontinue norepinephrine Continue Xarelto Resume home meds including Lamictal, Synthroid, Cymbalta, and Lyrica We will continue to follow while in the ICU. Time with Patient: Greater than 30
[2022-03-04] MEDS: OXYBUTYNIN 10 MG TAB.ER.24 PO SCH ×2 (12:15→21:00)
--- NOTE | 2022-03-04 14:48 | CDI ---
Documentation Clarification Form Date: 03/04/2022 02:33:40 PM From: Fransisca Anne CCS, CCDS Admit Date: 03/01/2022 02:30:00 PM Patient Name: Carlos Manuel Bustos Visit Number: [id number] Discharge Date: ATTENTION: The Clinical Documentation Specialists (CDI) and [facility] Coding Staff appreciate your assistance in clarifying documentation. Please respond to the clarification below the line at the bottom and electronically sign. The CDI & [facility] Coding staff will review the response and follow-up if needed. Please note: Queries are made part of the Legal Health Record. If you have any questions, please contact the author of this message via ITS. Dr. Ritesh Stock: Atrial Flutter is documented in the 03/02 Cardiology Consult and in subsequent Progress Notes. Additional clarification regarding the type of Atrial Flutter is requested. History/Risk factors per the 03/03 H/P: CAD, Cardiomyopathy, Chronic Renal Failure. Per the 03/01 ED Note: Atrial Fibrillation, Hypertension, Prostate Cancer status post Prostatectomy, Depression. Clinical Indicators: Presented to the ED on 03/01 via EMS with SOB and in respiratory distress, very hypoxic, PO in 70s, wheezing, chest pain radiating to the LUE on arrival, EKG with some findings concerning for ischemia or infarction. Admit with Heart Failure 03/01 ED: T 98.1, P 122, R 32 (labored, accessory use), BP 200/139, 150/113; PO 99 BiPAP 40%, BMI: 41.9 03/01 LAB: PT 12.4, INR 1.2; K 5.6, Creatinine 1.37, Glucose 142, Lactic Acid 4.3, Total bilirubin 1.7, Troponin 0.202, TSH 5.120 03/01 RAD: CXR: Cardiomegaly correlate for CHF otherwise consider interstitial pneumonia. 03/01 EKG: R 121 Sinus tachycardia, Inferior IL of indeterminate age. 03/01 EKG: R 120 Atrial Flutter/Tachycardia w/RVR, consistent with pulmonary disease, Inferior IL indeterminate age. Treatment: CHF protocol, Rolon Catheter, O2 2Lnc, Nitro sl, IV Lasix 40 mg x1, INH Duoneb 3ml x1, IV Nitro 250 mls @ 6 mls/hr q24H, po Aspirin, Nitropatch. Please clarify the type of Atrial Flutter, if known: [ x ] Typical/Type I [ ] Atypical/Type II [ ] Other, please specify [ ] Unable to determine (Template Last Revised: December 2020) MTDD
[2022-03-04] MEDS: NOREPINEPHRINE 4 MG in SODIUM CHLORIDE 0.9% 250 ML IV SCH ×2 (15:22→17:35)
[2022-03-04] MEDS: RIVAROXABAN 20 MG TAB PO SCH (17:30)
[2022-03-04 20:33] LABS: ABG Base Excess 8.2 mmol/L; ABG HCO3 33 mmol/L (21-25); ABG Oxygen Saturation 97.4 % (94-97); ABG PCO2 56 mmHg (35-45); ABG PH 7.38 (7.35-7.45); ABG PO2 102 mmHg (83-108); ABG TCO2 35 mmol/L (19-24); Allen Test Performed? Yes
--- NOTE | 2022-03-04 21:29 | CT ---
EXAMINATION TYPE: CT brain wo con CT DLP: 1154.4 mGycm, Automated exposure control for dose reduction was used. DATE OF EXAM: 03/04/2022 9:22 PM COMPARISON: Prior CT Brain from 02/06/2022 . CLINICAL INDICATION:Male, 76 years old with history of Patient is obtunded, ams TECHNIQUE: Brain: Multiple axial CT images of the brain were obtained without IV contrast. FINDINGS: Brain: Extra-axial spaces: No abnormal extra-axial fluid collections. Ventricular system: Dilatation in proportion to cerebral atrophy. Cerebral parenchyma: Cerebral atrophy. No acute intraparenchymal hemorrhage or mass effect. The colmenares -white junction is well differentiated. Scattered hypoattenuating areas are seen within the white mat ter. Cerebellum: Unremarkable. Mass effect: No evidence of midline shift. Intracranial vasculature: Atherosclerotic calcifications of the intracranial vessels. Soft tissues: Remote right frontal scalp injury with scar. Calvarium/osseous structures: No depressed skull fracture. Paranasal sinuses and mastoid air cells: Mild scattered paranasal sinus disease. Visualized orbits: Orbital contents are intact. IMPRESSION: 1. No acute intracranial process. 2. Nonspecific white matter changes, likely secondary to chronic small vessel ischemic disease.
--- NOTE | 2022-03-04 21:32 | PN ---
PROGRESS NOTE CHIEF COMPLAINT: Acute congestive heart failure and pulmonary edema with hypotension and bradycardia. HISTORY OF PRESENT ILLNESS: This gentleman was transferred ICU. He is not having any chest pain. He is lethargic. He states he stills feels somewhat short of breath. REVIEW OF SYSTEMS: He does not seem to have any neurologic issues or abdominal pain. PHYSICAL EXAMINATION: Blood pressure 78/58. Chest demonstrates scattered rales and rhonchi. Cardiac exam demonstrates atrial fibrillation with rapid ventricular response. The abdomen is slightly protuberant and soft. Extremities are normal. IMPRESSION: 1. Acute congestive heart failure with pulmonary edema. 2. Cardiomyopathy. 3. Atrial fibrillation with rapid ventricular response. 4. Hypotension. 5. Renal failure. PLAN: Continue with efforts to stabilize in ICU and be is being seen both by Cardiology and Pulmonology. MMODL / IJN: [id number] /
--- NOTE | 2022-03-04 21:43 | PN ---
PROGRESS NOTE DATE OF SERVICE: 03/02/2022 CHIEF COMPLAINT: Shortness of breath and chest discomfort. HISTORY OF PRESENT ILLNESS: This gentleman remains quite dyspneic. He is also significantly tachycardiac. He denies chest pain. He has had no fever or chills. He has had no hemoptysis. PHYSICAL EXAMINATION: Chest demonstrates decreased breath sounds with rales and rhonchi throughout. Cardiac exam demonstrates tachycardia. The abdomen is soft and nontender. IMPRESSION: 1. Acute congestive heart failure with pulmonary edema. 2. Hypotension. 3. Atrial fibrillation with rapid ventricular response. PLAN: Continue with efforts to diurese without significantly aggravating his tachycardia or hypotension. MMODL / IJN: [id number] /
--- NOTE | 2022-03-05 03:14 | CA ---
Transthoracic Echo Report Name: Carlos Manuel Bustos Age: 76 Gender: M : 1945 Exam Date: 03/04/2022 11:17 Exam Location: [facility] Ht (in): 73 Wt (lb): 317 Ordering Physician: Ritesh Stock DO ([email or web address]) Attending/Referring Phys: Glazier Stained Glass Nahomi Banks RDCS Procedure CPT: Indications: re: CP Cardiac Hx: Technical Quality: Technically difficult study Contrast 1: Lumason Total Dose (mL): 4 Contrast 2: Total Dose (mL): MEASUREMENTS (Male / Female) Normal Values 2D ECHO LV Diastolic Diameter PLAX 3.6 cm 4.2 - 5.9 / 3.9 - 5.3 cm LV Systolic Diameter PLAX 3.6 cm IVS Diastolic Thickness 1.9 cm 0.6 - 1.0 / 0.6 - 0.9 cm LVPW Diastolic Thickness 1.5 cm 0.6 - 1.0 / 0.6 - 0.9 cm LV Relative Wall Thickness 0.9 RV Internal Dim ED PLAX 3.3 cm LA Systolic Diameter LX 3.9 cm 3.0 - 4.0 / 2.7 - 3.8 cm LA Volume 62.9 cm??? 18 - 58 / 22 - 52 cm??? M-MODE Aortic Root Diameter MM 3.5 cm MV E Point Septal Separation 1.1 cm AV Cusp Separation MM 2.2 cm DOPPLER AV Peak Velocity 74.9 cm/s AV Peak Gradient 2.2 mmHg MV Area PHT 4.7 cm??? Mitral E Point Velocity 89.2 cm/s Mitral A Point Velocity 56.4 cm/s Mitral E to A Ratio 1.6 MV Deceleration Time 160.0 ms MV E' Velocity 5.4 cm/s Mitral E to MV E' Ratio 16.6 TR Peak Velocity 245.7 cm/s TR Peak Gradient 24.2 mmHg Right Ventricular Systolic Press 39.2 mmHg FINDINGS Left Ventricle Left ventricular ejection fraction is estimated at 40-45 %. Left ventricular cavity size normal. Severely increased left ventricular wall thickness. Right Ventricle Mild right ventricular dilatation. Mild pulmonary hypertension. Right Atrium Normal right atrial size. Left Atrium Normal left atrial size. Mitral Valve Mitral annular calcification. Aortic Valve Trileaflet aortic valve. No aortic valve stenosis or regurgitation. Tricuspid Valve Mild tricuspid regurgitation. Pulmonic Valve Pulmonic valve not well visualized. Pericardium Small pericardial effusion by LV Aorta Normal size aortic root and proximal ascending aorta. CONCLUSIONS Technically difficult study for interpretation The ejection fraction is 40-45% with global hypokinesia. Contrast was used to assess the EF Mild right ventricular dilated dictation Poorly visualized intracardiac valves See above for more details Previewed by: Dr. Garcia Murray MD (Electronically Signed) Final Date: 05 Mar 2022 03:13
[2022-03-05] MEDS: DILTIAZEM 125 MG in SODIUM CHLORIDE 0.9% 100 ML IV SCH ×2 (06:06→17:18)
[2022-03-05] MEDS: FLUTICASONE 110 MCG INHALER INHALATION SCH ×2 (07:21→19:21)
[2022-03-05 08:10] LABS: Anisocytosis Slight; Basophils # (A) 0.1 k/uL (0-0.2); Basophils % (A) 1 %; Eosinophils # (A) 0.3 k/uL (0-0.7); Eosinophils % (A) 5 %; HCT 40.2 % (39.0-53.0); HGB 11.9 gm/dL (13.0-17.5); Hypochromasia Moderate; Lymphocytes # (A) 1.1 k/uL (1.0-4.8); Lymphocytes % (A) 17 %; MCH 26.9 pg (25.0-35.0); MCHC 29.7 g/dL (31.0-37.0); MCV 90.5 fL (80.0-100.0); Mean Platelet Volume 7.9; Monocytes # (A) 0.5 k/uL (0-1.0); Monocytes % (A) 7 %; Neutrophils # (A) 4.4 k/uL (1.3-7.7); Neutrophils % (A) 68 %; Platelet Count 247 k/uL (150-450); RBC 4.44 m/uL (4.30-5.90); WBC 6.5 k/uL (3.8-10.6)
[2022-03-05 08:28] LABS: Calcium 8.1 mg/dL (8.4-10.2); Potassium 4.1 mmol/L (3.5-5.1)
[2022-03-05] MEDS ORDERED: HALOPERIDOL LACTATE 5 MG/ML 1 ML VIAL IVP PRN (08:48)
[2022-03-05] MEDS ORDERED: HALOPERIDOL LACTATE 5 MG/ML 1 ML VIAL IVP STA (08:50)
[2022-03-05] MEDS: ALPRAZolam 1 MG TAB PO SCH (09:40)
--- NOTE | 2022-03-05 09:58 | XR ---
EXAMINATION TYPE: XR chest 1V portable DATE OF EXAM: 03/05/2022 COMPARISON: 03/04/2022 HISTORY: Shortness of breath TECHNIQUE: Single frontal view of the chest is obtained. FINDINGS: Heart is enlarged and there is left lower lobe infiltrate and small effusion. No overt jessica lure or pneumothorax. Arthropathy of the shoulders. IMPRESSION: Left lower lobe infiltrate and small effusion stable.
--- NOTE | 2022-03-05 10:23 | PN ---
PROGRESS NOTE DATE OF SERVICE: 03/05/2022 CHIEF COMPLAINT: Acute congestive heart failure and pulmonary edema. HISTORY OF PRESENT ILLNESS: This gentleman seems fairly stable. Blood pressure has elevated somewhat. He denies chest pain. PHYSICAL EXAMINATION: Pulse is around 100. Chest demonstrates decreased breath sounds with scattered rales. Cardiac exam is unchanged with atrial fibrillation. Abdomen is soft and nontender. Extremities are normal. IMPRESSION: 1. Acute congestive heart failure. 2. Cardiomyopathy. 3. Renal failure. 4. Tachycardia. 5. Hypotension. PLAN: No change in management program from my perspective. Continue to follow with Pulmonology/Intensive Medicine and Cardiology. MMODL / IJN: [id number] /
--- NOTE | 2022-03-05 11:53 | P.PN ---
Subjective Progress Note Date: 03/05/22 Principal diagnosis: Acute hypoxic respiratory failure secondary to acute on chronic systolic heart failure, ejection fraction 40-45%. This is a 77-year-old white male with history of multiple medical problems including chronic atrial fibrillation, hypertension, dyslipidemia, patient was admitted to the hospital on 03/01 with 3 week history of shortness of breath, patient was in [place] recently, round out of his cardiac medications, and his presentation to the hospital was typical of acute congestive heart failure complaining of shortness of breath, orthopnea, increased swelling in the lower extremities, and when EMS arrived he was hypoxic and O2 saturation in the 70s. In the ER the patient was noted to be in atrial flutter with RVR. Patient was seen by cardiology on consultation, felt that the patient had acute on chronic heart failure, echocardiogram is pending, he was also noted to have narrow complex tachycardia, initially his blood pressure was extremely high over 200 systolic, he was also noted to have acute on chronic kidney injury, and possibly non-ST elevation myocardial infarction. At any rate patient was treated with diuretics, he was placed on Cardizem drip, however yesterday his condition deteriorated, and he was transferred to the ICU. Hence this consult was initiated. I saw the patient this morning, he is on 2 L nasal cannula, O2 sats is 96%, he required norepinephrine at 0.01 mcg/kg/m, patient has been diuresing significantly, and her blood pressure is marginal this morning, hence I recommended that we cut down the Lasix to 40 mg daily chest x-ray is showing improvement considering her blood pressure is marginal I held his Lasix this morning. Once his blood pressure improves, we can potentially discontinue his norepinephrine. Losartan was also placed on hold by cardiology for his low blood pressure. He is now on 2 L nasal cannula, O2 saturation is 94-96%. Remains a little tachycardic, heart rate is 112, blood pressure was in the 70s earlier, now it is 91/63. WBC count is 8.6 hemoglobin 11.8 electrolytes are normal his BUN is 34 creatinine is down from 2.94-2.51 this morning Reevaluated today on 03/05/2022, patient remains in the ICU, intermittently on BiPAP 12/6/50%, intermittently in atrial flutter rate 120, off norepinephrine this morning, patient has been requiring Haldol for extreme agitation as a matter of fact I walked in to see the patient today this morning, he was extremely agitated requiring restraints, then Haldol was given, and that seemed to calm him down. Last night the patient was obtunded and a CT of the brain was negative for bleed. Patient required BiPAP for slightly elevated pCO2. He was on BiPAP onto the early this morning. Chest x-ray showed small left pleural effusion, and left lower lobe atelectasis. No clear-cut evidence of pneumonia. His chest x-ray is significantly improved compared to admission chest x-ray showing evidence of CHF. Lasix was discontinued. IV fluids at KVO. Today I recommended a psychiatric and a urological consultation on this patient to address mental status, and address his psychiatric medications. Obviously the patient is intermittently agitated, and combative Objective - Vital Signs Vital signs: Vital Signs Temp 98.3 F 03/05/22 08:00 Pulse 121 H 03/05/22 10:00 Resp 8 L 03/05/22 10:00 BP 79/50 03/05/22 10:00 Pulse Ox 97 03/05/22 10:00 Intake & Output 03/04/22 03/05/22 03/05/22 18:59 06:59 18:59 Intake Total 260.250 212.554 30 Output Total 835 425 145 Balance -574.750 -212.446 -115 Weight 144.1 kg Intake: IV 160 115 30 .9 KVO 100 115 30 Invasive Line 3 60 Intake, IV Titration 100.250 97.554 0 Amount Norepinephrine 4 mg In 100.250 97.554 0 Sodium Chloride 0.9% 250 ml @ 0.05 MCG/KG/MIN 18. 383 mls/hr IV .[id number] [facility] Rx#:[id number] Output: Urine 835 425 145 Other: Voiding Method Indwelling Catheter Indwelling Catheter - Exam Physical Exam: Revealed a 76-year-old white male, in no distress, on 2 L nasal cannula. O2 saturation is 97% Head: Atraumatic, normocephalic. HEENT:[Neck is supple.] [No neck masses.] [No thyromegaly.] [No JVD.] Chest: [Symmetrical chest expansion, diminished breath sounds at the bases no crackles or rhonchi or wheezes Cardiac Exam: Tachycardic, regular rhythm, distant S1 and S2, no S3 gallop. Abdomen: [Soft, nontender, no megaly, no rebound, no guarding, normal bowel sounds.] Extremities: [No clubbing, 1+ bipedal edema, no cyanosis.] Good pulses bilaterally. Neurological Exam: Combative and restless agitated. Psychiatric: Intermittently agitated and combative, intermittently confused. Skin: No rashes. Musculoskeletal: No deformities and no limitation in range of motion - Labs CBC & Chem 7: 03/05/22 07:54 03/05/22 07:54 Labs: Abnormal Lab Results - Last 24 Hours (Table) 03/04/22 03/04/22 03/05/22 Range/Units 05:45 20:24 07:54 Hgb 11.9 L (13.0-17.5) gm/dL MCHC 29.7 L (31.0-37.0) g/dL RDW 16.0 H (11.5-15.5) % ABG pCO2 56 H (35-45) mmHg ABG HCO3 33 H (21-25) mmol/L ABG Total CO2 35 H (19-24) mmol/L ABG O2 Saturation 97.4 H (94-97) % Sodium (137-145) mmol/L Carbon Dioxide (22-30) mmol/L BUN (9-20) mg/dL Creatinine (0.66-1.25) mg/dL Calcium (8.4-10.2) mg/dL Procalcitonin 0.23 H (0.02-0.09) ng/mL 03/05/22 Range/Units 07:54 Hgb (13.0-17.5) gm/dL MCHC (31.0-37.0) g/dL RDW (11.5-15.5) % ABG pCO2 (35-45) mmHg ABG HCO3 (21-25) mmol/L ABG Total CO2 (19-24) mmol/L ABG O2 Saturation (94-97) % Sodium 135 L (137-145) mmol/L Carbon Dioxide 32 H (22-30) mmol/L BUN 34 H (9-20) mg/dL Creatinine 1.57 H (0.66-1.25) mg/dL Calcium 8.1 L (8.4-10.2) mg/dL Procalcitonin (0.02-0.09) ng/mL Assessment and Plan Assessment: Impression: Acute hypoxic respiratory failure secondary to acute on chronic systolic heart failure, ejection fraction of 40-45% Paroxysmal atrial fibrillation with RVR. Being addressed by cardiology. off Cardizem drip Possible non-ST elevation myocardial infarction Acute on chronic kidney injury Hypertensive emergency on presentation, resolved, patient is now hypotensive mostly secondary to medications. And excessive diuresis. Lasix is presently on hold. Hypotension, medications induced and suspect overdiuresis. Resolved, patient is off norepinephrine this morning. History of obstructive sleep apnea syndrome History of prostate cancer and previous prostatectomy Idiopathic neuropathy Acute metabolic encephalopathy, intermittent agitation and combativeness. Recommendation: Continue present medications as noted Continue to monitor in the ICU Hold diuretics for now Neurologic consultation and psychiatric consultation Continue Xarelto Haldol when necessary for extreme agitation. Resume home meds including Lamictal, Synthroid, Cymbalta, and Lyrica We will continue to follow while in the ICU. Time with Patient: Less than 30
--- NOTE | 2022-03-05 13:11 | P.CN ---
Psychiatric Consult - . Consult date: 03/05/22 Consult:: 03/05/22 13:10 IDENTIFYING DATA: This patient is a 76-year-old male significant history of atrial fibrillation, COPD, hypertension, who presented to the emergency department with shortness of breath. HISTORY OF PRESENT ILLNESS: The patient presented to the hospital on 03/01/2022, [place] emergency department for shortness of breath. The patient was presenting with significant shortness of breath and was subsequently admitted to the ICU for acute hypoxic respiratory failure secondary to acute on chronic systolic heart failure. Reportedly, the patient was in [place] recently and was not adherent with his cardiac medications. Earlier in the morning on 03/05/2022, the patient was noted to be very agitated and requiring Haldol in order to calm down. He was noted to be obtunded and CT of the brain was negative for any bleed. Psychiatry has been consulted for evaluation of the patient's altered mental status and management of his psychiatric medications. History was limited due to the patient's current presentation and somnolence. Present at the patient's bedside is his brother Jamel Bustos. His brother was able to inform this provider that the patient does have a significant history of major depressive disorder and a history of suicidal ideation however to his knowledge, is unable to recall if the patient ever attempted suicide in the past. His brother is currently denying any previous history of manic or psychotic episodes from this patient. He does report that the patient has been previously hospitalized for mental illness however it has been "many years." The patient reportedly followed with an outpatient psychiatrist in [place] however that psychiatrist retired. He has been reportedly prescribed his medications through his primary care provider. The patient's brother states that the patient has had significant issues with back pain. He reports that the patient was to have surgery on his back for quite some time however has been unable to do so due to his medical issues. This provider attempted to contact the patient's son for further psychiatric history however was only able to leave the HIPAA compliant voicemail. PAST PSYCHIATRIC HISTORY: Patient has a history of depression. Patient's current's home psychiatric medications include Wellbutrin XL 300 mg daily, Lamictal 150 mg twice a day, Cymbalta 1-20 mg daily, Abilify 20 mg daily, Xanax 1 mg 3 times a day, Lyrica 150 mg 3 times a day, as well as oxycodone 15 mg every 4-6 hours when necessary. The patient's brother reports that he has had previous hospitalization for psychiatric issues many years ago. No reported current outpatient psychiatric follow-up. The patient's brother is unable to recall any prior attempts at suicide. PAST MEDICAL HISTORY: Past Medical History: Atrial Fibrillation, COPD, Hypertension Additional Past Medical History / Comment(s): 03/09/15 Pt presented to [facility] ER via EMS. He was suppose to have a colonoscopy today but when they hooked him up to EKG he was in Afib. Other HX: 01/28/15 seen in [facility] ER after a fall and subsequent. hematuria-resolved and he had a cystoscopy that was normal. Pt has hx of prostate cancer with prostatectomy. History of Any Multi-Drug Resistant Organisms: None Reported Past Surgical History: Back Surgery, Joint Replacement Additional Past Surgical History / Comment(s): (B) hip replecement, (B)knee replacement, laminectomy, prostatectomy. Past Anesthesia/Blood Transfusion Reactions: No Reported Reaction Additional Past Anesthesia/Blood Transfusion Reaction / Comment(s): Pt has never recieved blood. Past Psychological History: Depression Smoking Status: Never smoker Past Alcohol Use History: Occasional Past Drug Use History: None Reported ALLERGIES: NO KNOWN DRUG ALLERGIES CHEMICAL DEPENDENCY HISTORY: As per chart review, the patient is not a smoker. Reported occasional alcohol use. No reported drug use. FAMILY PSYCHIATRIC/SUBSTANCE USE HISTORY: Unable to assess at this time. SOCIAL HISTORY: Patient reportedly lives with his son. He is single and retired. History is limited due to the patient's somnolence. MENTAL STATUS EXAM: General Appearance: Patient appears to be stated age is obtunded, with a very obese body habitus. Behavior: Patient is intermittently arousable however remains quite somnolent. No eye contact. Speech: Patient's speech is nonspontaneous, slightly dysarthric, low in volume. Minimal. Mood/Affect: Unable to assess patient's mood. Affect appears to be somnolent. Suicidality/Homicidality: Unable to assess. Perceptions: Unable to assess. Though content/process: Unable to assess. Memory and concentration: Grossly poor at this time. Judgment and insight: Grossly poor at this time. Vital Signs Temp 98.3 F 05/17/22 08:00 Pulse 121 H 03/05/22 10:00 Resp 8 L 03/05/22 10:00 BP 79/50 03/05/22 10:00 Pulse Ox 97 03/05/22 10:00 Intake & Output 03/04/22 03/05/22 03/05/22 18:59 06:59 18:59 Intake Total 260.250 212.554 30 Output Total 835 425 145 Balance -574.750 -212.446 -115 Weight 144.1 kg Intake: IV 160 115 30 .9 KVO 100 115 30 Invasive Line 3 60 Intake, IV Titration 100.250 97.554 0 Amount Norepinephrine 4 mg In 100.250 97.554 0 Sodium Chloride 0.9% 250 ml @ 0.05 MCG/KG/MIN 18. 383 mls/hr IV .[id number] [facility] Rx#:[id number] Output: Urine 835 425 145 Other: Voiding Method Indwelling Catheter Indwelling Catheter Laboratory Results - Last 24 Hours 03/04/22 03/04/22 03/05/22 05:45 20:24 07:54 WBC 6.5 RBC 4.44 Hgb 11.9 L Hct 40.2 MCV 90.5 MCH 26.9 MCHC 29.7 L RDW 16.0 H Plt Count 247 MPV 7.9 Neutrophils % 68 Lymphocytes % 17 Monocytes % 7 Eosinophils % 5 Basophils % 1 Neutrophils # 4.4 Lymphocytes # 1.1 Monocytes # 0.5 Eosinophils # 0.3 Basophils # 0.1 Hypochromasia Moderate Anisocytosis Slight Sample Site Right Brachial ABG pH 7.38 ABG pCO2 56 H ABG pO2 102 ABG HCO3 33 H ABG Total CO2 35 H ABG O2 Saturation 97.4 H ABG Base Excess 8.2 He Test Yes FiO2 28 Sodium Potassium Chloride Carbon Dioxide Anion Gap BUN Creatinine Est GFR (CKD-EPI)AfAm Est GFR (CKD-EPI)NonAf Glucose Calcium Procalcitonin 0.23 H 03/05/22 07:54 WBC RBC Hgb Hct MCV MCH MCHC RDW Plt Count MPV Neutrophils % Lymphocytes % Monocytes % Eosinophils % Basophils % Neutrophils # Lymphocytes # Monocytes # Eosinophils # Basophils # Hypochromasia Anisocytosis Sample Site ABG pH ABG pCO2 ABG pO2 ABG HCO3 ABG Total CO2 ABG O2 Saturation ABG Base Excess He Test FiO2 Sodium 135 L Potassium 4.1 Chloride 99 Carbon Dioxide 32 H Anion Gap 4 BUN 34 H Creatinine 1.57 H Est GFR (CKD-EPI)AfAm 50 Est GFR (CKD-EPI)NonAf 43 Glucose 93 Calcium 8.1 L Procalcitonin IMPRESSIONS: Altered mental status, likely secondary to multiple etiologies including acute metabolic encephalopathy, ICU psychosis, polypharmacy Major depressive disorder, per history Acute hypoxic respiratory failure secondary to acute on chronic systolic heart failure. PLAN: -Continue your medical management -At this time patient DOES NOT meet criteria for inpatient psychiatric admission. -Delirium precautions recommended with patient including - avoiding use of narcotics and [employer] sedatives, limit anticholinergic medications when possible, frequent re-orientation, minimize use of restraints, open window shades during the day and close them at night -Would recommend the following medication changes/additions: The patient is on numerous psychotropic medications and medications that may contribute to altered mental status and agitation. We will begin to taper medications to address this concern. Taper Xanax to 0.5 mg by mouth 3 times a day with plans to continue taper as the patient is also receiving oxycodone for pain management. Taper Wellbutrin to 150 mg by mouth daily with plans to continue taper as the patient is already on Cymbalta for antidepressant management as well as Lamictal for augmentation of antidepressant. We will continue Lamictal 150 mg by mouth twice a day, Cymbalta 120 mg by mouth daily, Abilify 20 mg daily. Consider taper of abilify due to oversedation. We will defer to his primary team in regards to his pain management. Continue Haldol PRN for agitation -Will re-attempt to contact patient's son in regards to further psychiatric history. -Psychiatry will continue to follow along 03/05/22 13:10
--- NOTE | 2022-03-05 13:46 | P.CNNES ---
History of Present Illness Consult date: 03/05/22 Requesting physician: Zenia Marquez Reason for Consult: altered mental status, confusion History of Present Illness: Patient is a 76-year-old male was brought to the hospital by ambulance on 03/01/2022 for respiratory distress. Patient has been having dizziness, shortness of breath of 3 days' duration. Initial oxygen saturation was 88%. EKG revealed atrial fibrillation with rapid ventricular rate. Patient's blood pressure on arrival was 200/139, heart rate of 122. Patient was in possible heart failure exacerbation. Hypertensive emergency with pulmonary edema was suspected. CT head showed no acute intracranial process. Nonspecific white matter changes, likely secondary to chronic small vessel ischemic disease. I personally reviewed computed tomography scan of the head and agree with the findings. No acute process. 2-D echo revealed ejection fraction 40-45% with global hypokinesia. Mild right ventricular dilation. Poorly visualized intracardiac valves. Left atrial size is reportedly normal. Chest x-ray revealed left lower lobe infiltrate and small effusion. Blood tests with normal WBC hemoglobin 11.9, platelets 247. ABG with pH 7.38, pCO2 56, pO2 102 and oxygen saturation 97.4%. Sodium 135 potassium 4.1, patient's renal functions had got worse as of 03/03/2022 with creatinine 2.94. However it is now improving and it is 1.57. BUN 34. Patient has history of atrial fibrillation, currently on Xarelto 20 mg daily. Patient also on Lamictal 150 mg twice a day, Cymbalta 120 mg daily, Xanax 1 mg 3 times a day, oxycodone 15 mg every 6 hours when necessary, Lyrica 150 mg 3 times a day, oxybutynin 10 mg twice a day, Wellbutrin XL 300 mg daily, sotalol 80 mg twice a day, losartan 100 mg, Lipitor 20 mg, Abilify 20 mg daily. Patient's brother later came on, who provided with a history. 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 He is on multiple pain medication because of c hronic back issues. Patient has never smoked, does not do any alcohol. Review of Systems ROS unobtainable: due to mental status Past Medical History Past Medical History: Atrial Fibrillation, COPD, Hypertension, Osteoarthritis (OA), Sleep Apnea/CPAP/BIPAP Additional Past Medical History / Comment(s): 5/21/15 Pt presented to [facility] ER via EMS. He was suppose to have a colonoscopy today but when they hooked him up to EKG he was in Afib. Other HX: 01/28/15 seen in [facility] ER after a fall and mendoza bsequent. Pt has hx of prostate cancer with prostatectomy. Neuropathy, Cardiac cath, History of Any Multi-Drug Resistant Organisms: None Reported Past Surgical History: Back Surgery, Joint Replacement Additional Past Surgical History / Comment(s): (B) hip replecement, (B)knee replacement, laminectomy x6, prostatectomy. Past Anesthesia/Blood Transfusion Reactions: No Reported Reaction Additional Past Anesthesia/Blood Transfusion Reaction / Comment(s): Pt has never recieved blood. Past Psychological History: Depression Additional Psychological History / Comment(s): Pt takes med for depression and is seen by a psychiatrist. He feels his depression is under control. He lives with family. He is independent. He drives a car. Smoking Status: Never smoker Past Alcohol Use History: Occasional Past Drug Use History: None Reported - Past Family History Father Family Medical History: Congestive Heart Failure (CHF), Hypertension, Myocardial Infarction (HI) Additional Family Medical History / Comment(s): Father of a HI at age 89 yrs. Mother Family Medical History: Cancer Additional Family Medical History / Comment(s): Mother had multiple myeloma. She at age 68 yrs. Medications and Allergies Home Medications Medication Instructions Recorded Confirmed Type DULoxetine HCL [Cymbalta] 120 mg PO DAILY 01/28/15 03/01/22 History lamoTRIgine [LaMICtal] 150 mg PO BID 01/28/15 03/01/22 History ALPRAZolam [Xanax] 1 mg PO TID 03/01/22 03/01/22 History ARIPiprazole [Abilify] 10 - 20 mg PO DAILY 03/01/22 03/01/22 History Albuterol Sulfate [Proair Hfa] 1 puff INHALATION RT-Q4H PRN 03/01/22 03/01/22 History Atorvastatin [Lipitor] 20 mg PO DAILY 03/01/22 03/01/22 History Beclomethasone Dip 80 Mcg/Puff 1 puff INHALATION RT-BID 03/01/22 03/01/22 History [Qvar 80 mcg] Ergocalciferol [Vitamin D2 (1250 1,250 mcg PO Q7D 03/01/22 03/01/22 History Mcg = 28313 Iu)] Levothyroxine Sodium 25 mcg PO DAILY 03/01/22 03/01/22 History Losartan Potassium 100 mg PO DAILY 03/01/22 03/01/22 History Oxybutynin Chloride [Ditropan XL] 10 mg PO BID 03/01/22 03/01/22 History Pregabalin [Lyrica] 150 mg PO TID 03/01/22 03/01/22 History Rivaroxaban [Xarelto] 20 mg PO W/SUPPER 03/01/22 03/01/22 History Sotalol [Betapace] 80 mg PO BID 03/01/22 03/01/22 History buPROPion HCL [Wellbutrin XL] 300 mg PO DAILY 03/01/22 03/01/22 History oxyCODONE HCL [oxyCODONE HCL (IR)] 15 mg PO Q4-6H PRN 03/01/22 03/01/22 History Allergies Allergy/AdvReac Type Severity Reaction Status Date / Time No Known Allergies Allergy Verified 03/01/22 14:32 Physical Examination - Vital Signs Vital Signs: Vital Signs Temp Pulse Resp BP Pulse Ox 03/05/22 10:00 121 H 8 L 79/50 97 03/05/22 09:30 118 H 15 82/59 95 03/05/22 09:00 118 H 22 97/72 03/05/22 08:30 120 H 11 L 92/73 98 03/05/22 08:00 98.3 F 121 H 18 89/73 99 03/05/22 07:30 115 H 14 94/59 97 03/05/22 07:00 117 H 13 88/61 97 03/05/22 06:30 116 H 15 91/70 95 03/05/22 06:00 116 H 17 89/70 98 03/05/22 05:30 118 H 15 84/65 99 03/05/22 05:00 118 H 15 84/56 98 03/05/22 04:30 116 H 16 92/61 99 03/05/22 04:00 98.3 F 118 H 15 86/64 97 03/05/22 03:30 118 H 16 96/63 98 03/05/22 03:00 93 15 81/71 96 03/05/22 02:30 115 H 14 90/63 97 03/05/22 02:00 120 H 13 89/64 98 03/05/22 01:30 113 H 13 92/56 98 03/05/22 01:00 104 H 20 80/54 97 03/05/22 00:30 92 17 82/63 99 03/05/22 00:19 87 22 87/54 98 03/05/22 00:00 98.2 F 93 20 85/63 98 03/04/22 23:30 89 13 89/65 99 03/04/22 23:00 117 H 11 L 99/70 97 03/04/22 22:30 92 12 87/61 98 03/04/22 22:00 118 H 12 94/71 98 03/04/22 21:00 115 H 14 87/58 97 03/04/22 20:00 98.4 F 115 H 20 96/60 95 03/04/22 19:00 120 H 113/79 95 03/04/22 18:30 118 H 105/66 97 03/04/22 18:00 103 H 105/66 97 03/04/22 17:30 113 H 8 L 84/61 97 03/04/22 17:00 115 H 23 77/64 97 03/04/22 16:00 98.1 F 98 22 89/66 96 03/04/22 15:30 116/89 94 L 03/04/22 15:00 118 H 95/73 92 L 03/04/22 14:30 85/66 94 L 03/04/22 14:00 117 H 96/60 97 03/04/22 13:00 117 H 90/66 93 L 03/04/22 12:30 92 88/61 90 L 03/04/22 12:00 98.3 F 90 12 96/71 97 03/04/22 11:30 101 H 13 85/63 96 03/04/22 11:00 109 H 24 91/62 94 L 03/04/22 10:30 102 H 10 L 94 L Intake and Output 03/04/22 03/05/22 03/05/22 22:59 06:59 14:59 Intake Total 229.727 110.332 30 Output Total 400 225 145 Balance -170.273 -114.668 -115 Intake: IV 75 80 30 .9 KVO 55 80 30 Invasive Line 3 20 Intake, IV Titration 154.727 30.332 0 Amount Norepinephrine 4 mg In 154.727 30.332 0 Sodium Chloride 0.9% 250 ml @ 0.05 MCG/KG/MIN 18. 383 mls/hr IV .[id number] [facility] Rx#:[id number] Output: Urine 400 225 145 Other: Voiding Method Indwelling Catheter Indwelling Catheter Weight 144.1 kg Patient is an elderly male, appears slightly younger than his stated age. Patient is laying in the bed, appears obviously encephalopathic, slightly restless, sometimes exhibiting myoclonic type jerking. Occasionally was noted like repetitive biting-type movement of the lower jaw (not lip smacking). Speech and language functions cannot be assessed. Attention, concentration is completely impaired and fund of knowledge cannot be assessed. On cranial examination, pupils are equal, round and reacting to light, oculocephalics are present. Visual rose could not be tested. Gaze is midline. Extraocular muscles cannot be tested. Lower cranial nerves could not be tested due to mental status. On muscle strength testing, patient did not cooperate with the testing. He did squeeze hands equally, and appears to resist for biceps and triceps equally. He was noticed to move all 4 extremities. His knees are partially flexed, because his height is taller than the length of the bed. Deep tendon reflexes are 1+ to 2 in the upper limbs, trace at the knees and absent ankles, and plantars are downgoing. Sensory and cerebellar functions cannot be assessed. Tone is equal bilaterally. Bulk of muscles normal. Gait cannot be tested. On general examination, there is no carotid bruit or murmur, S1-S2 audible. Abdomen is soft nontender. Bowel sounds present. No organomegaly. Chest is clear. Patient has moderate peripheral edema. No rash. Patient has history of previous knee surgery. Results - Laboratory Findings CBC and BMP: 03/06/22 06:57 03/06/22 06:57 Abnormal Lab Findings: Abnormal Labs 03/01/22 03/01/22 03/01/22 12:23 12:31 12:31 RBC Hgb Hct MCHC 30.4 L RDW 16.6 H Lymphocytes # PT 12.4 H INR 1.2 H ABG pCO2 ABG HCO3 ABG Total CO2 ABG O2 Saturation Sodium Potassium Chloride Carbon Dioxide BUN Creatinine Glucose POC Glucose (mg/dL) 137 H Plasma Lactic Acid Caden Calcium Total Bilirubin Troponin I Total Protein Albumin Procalcitonin TSH 03/01/22 03/01/22 03/01/22 12:31 12:31 12:31 RBC Hgb Hct MCHC RDW Lymphocytes # PT INR ABG pCO2 ABG HCO3 ABG Total CO2 ABG O2 Saturation Sodium Potassium 5.6 H Chloride Carbon Dioxide BUN Creatinine 1.37 H Glucose 142 H POC Glucose (mg/dL) Plasma Lactic Acid Caden Calcium Total Bilirubin 1.7 H Troponin I 0.160 H* Total Protein Albumin Procalcitonin TSH 5.120 H 03/01/22 03/01/22 03/02/22 12:37 15:22 16:03 RBC Hgb 12.1 L Hct MCHC 30.3 L RDW 16.3 H Lymphocytes # 0.8 L PT INR ABG pCO2 ABG HCO3 ABG Total CO2 ABG O2 Saturation Sodium Potassium Chloride Carbon Dioxide BUN Creatinine Glucose POC Glucose (mg/dL) Plasma Lactic Acid Caden 4.3 H* Calcium Total Bilirubin Troponin I 0.202 H* Total Protein Albumin Procalcitonin TSH 03/02/22 03/03/22 03/03/22 16:03 10:57 11:35 RBC Hgb 11.7 L Hct 37.8 L MCHC 30.9 L RDW 16.8 H Lymphocytes # PT INR ABG pCO2 ABG HCO3 ABG Total CO2 ABG O2 Saturation Sodium 135 L Potassium Chloride 95 L Carbon Dioxide 33 H BUN Creatinine 1.44 H Glucose 130 H POC Glucose (mg/dL) 114 H Plasma Lactic Acid Caden Calcium 8.2 L Total Bilirubin Troponin I Total Protein Albumin 3.1 L Procalcitonin TSH 03/03/22 03/04/22 03/04/22 11:35 05:45 05:46 RBC 4.28 L Hgb 11.8 L Hct 38.1 L MCHC 30.9 L RDW 16.2 H Lymphocytes # PT INR ABG pCO2 ABG HCO3 ABG Total CO2 ABG O2 Saturation Sodium 133 L Potassium Chloride 96 L Carbon Dioxide 31 H BUN 32 H Creatinine 2.94 H Glucose 104 H POC Glucose (mg/dL) Plasma Lactic Acid Caden Calcium 7.7 L Total Bilirubin Troponin I Total Protein Albumin Procalcitonin 0.23 H TSH 03/04/22 03/04/2203/05/22 05:46 20:24 07:54 RBC Hgb 11.9 L Hct MCHC 29.7 L RDW 16.0 H Lymphocytes # PT INR ABG pCO2 56 H ABG HCO3 33 H ABG Total CO2 35 H ABG O2 Saturation 97.4 H Sodium 136 L Potassium Chloride Carbon Dioxide BUN 34 H Creatinine 2.51 H Glucose POC Glucose (mg/dL) Plasma Lactic Acid Caden Calcium 7.9 L Total Bilirubin Troponin I Total Protein 5.6 L Albumin 3.0 L Procalcitonin TSH 03/05/22 07:54 RBC Hgb Hct MCHC RDW Lymphocytes # PT INR ABG pCO2 ABG HCO3 ABG Total CO2 ABG O2 Saturation Sodium 135 L Potassium Chloride Carbon Dioxide 32 H BUN 34 H Creatinine 1.57 H Glucose POC Glucose (mg/dL) Plasma Lactic Acid Caden Calcium 8.1 L Total Bilirubin Troponin I Total Protein Albumin Procalcitonin TSH Assessment and Plan Assessment: * Altered mental status, most likely due to toxic metabolic encephalopathy. Etiology multifactorial as mentioned below. * Polypharmacy is probably the likely cause of altered mental status * Mild to moderate renal insufficiency probably resulted in decreased clearance of some of the psychotropic medications resulting in encephalopathy. * Patient has been on opiates for a long time. Patient may be in partial opiate withdrawal, as he calms down after receiving opiate. * Acute hypoxic respiratory failure secondary to acute on chronic systolic heart failure, with EF 40-45%. * Paroxysmal atrial fibrillation * Hypertensive emergency * Obstructive sleep apnea * History of prostate cancer and previous prostatectomy * History of peripheral neuropathy Plan: * Agree with psychiatry consultation to evaluate for polypharmacy. Patient probably would need decrease in the dose of some medication including Wellbutrin, Abilify. Patient also on Lyrica 150 mg 3 times a day, we will decrease the dose to 75 mg 3 times a day. Continue Lamictal. * CT head showed no acute process. Patient's limited neurological examination is relatively nonfocal. * Watch for opiate withdrawal. * 2-D echo revealed EF 40-45% with global hypokinesia. Mild right ventricle dilation. * Continue Xarelto for atrial fibrillation. * Patient's last hemoglobin A1c 5.9 on 11/14/2021. Last LDL 72.4 on 04/26/2021. * We will follow clinically. Time with Patient: Greater than 30
[2022-03-05] MEDS: DULoxetine HCL 60 MG CAPSULE.DR PO SCH (13:53)
[2022-03-05] MEDS: LEVOTHYROXINE 25 MCG TAB PO SCH (13:53)
[2022-03-05] MEDS: ATORVASTATIN 20 MG TAB PO SCH (13:53)
[2022-03-05] MEDS: lamoTRIgine 100 MG TAB PO SCH ×2 (13:53→20:18)
[2022-03-05] MEDS: OXYBUTYNIN 10 MG TAB.ER.24 PO SCH ×2 (13:53→20:18)
[2022-03-05] MEDS: ASPIRIN 325 MG TAB PO SCH (13:53)
[2022-03-05] MEDS: METOPROLOL TARTRATE 25 MG TAB PO SCH ×2 (13:53→20:18)
[2022-03-05] MEDS: ALPRAZolam 0.5 MG TAB PO SCH ×2 (17:18→22:00)
[2022-03-05] MEDS: PREGABALIN 75 MG CAP PO SCH ×2 (17:18→21:14)
[2022-03-05] MEDS: RIVAROXABAN 20 MG TAB PO SCH (18:07)
[2022-03-05] MEDS: NOREPINEPHRINE 4 MG in SODIUM CHLORIDE 0.9% 250 ML IV SCH (18:08)
--- NOTE | 2022-03-05 22:57 | P.PN ---
Subjective HISTORY OF PRESENTING ILLNESS Patient is a pleasant 77-year-old male with history of hypertension, hyperlipidemia, obesity, atrial fibrillation who presents secondary to worsening dyspnea over the last 3-4 weeks. He states he normally follows with Dr. Kraft from [facility]. He was scheduled to get an echo done however had a last minute trip to [place] and therefore went to [place] instead. He admits he was running out of his medications and thought he could get some of the medications in [place]. Therefore he has been out of number of his medications including his blood pressure meds as well as sotalol. Since coming back he has had pr ogressive dyspnea with 6 pillow orthopnea and increased lower extremity edema and therefore eventually had respiratory distress and EMS was called and patient found to be hypoxic in the 70s. Initial EKG read out as sinus rhythm, sinus tachycardia 130 bpm however has persistently been tachycardic at 1:30 without any variation. Appears concerning for atrial flutter with RVR. He was having significant chest pain and pressure yesterday when he was in respiratory distress however currently improved. He states he had a heart catheterization 5 years ago secondary to abnormal stress test and was told that his coronary arteries are "wide open". Initial lactic acid 4.3, total bilirubin 1.7, tropo juan carlos 0.16, 0.2, proBNP 18,900, TSH 5.1, creatinine 1.37 with baseline appearing to be 1.0 from December, white blood cell count 10.1. Initial blood pressure was in the 200s over 130 range however restarted on prior medications and better controlled. He states he is feeling somewhat better currently however still continued dyspnea and lower extremity edema. Denies any further chest pain. 03/03 Patient seen and examined. Patient denies any chest pain or pressure. He was started on Cardizem drip yesterday secondary to atrial flutter with RVR however became hypotensive. He did have good urine output with approximately -4 L more or less 24 hours. He has had however increased creatinine from 1.4 up to 2.9. A team was called this morning with another hypotensive episode. Heart rates continue to be in the low 100s to 130s. Remains in atrial flutter with variable conduction. Lactic acid has been normal. He has been somewhat more confused recently. He was feeling lightheaded previously during the hypotensive episode and had some chest discomfort. 03/04 Patient seen and examined. Patient transferred to ICU briefly placed on the Levophed and given additional IV fluid bolus yesterday with some improvement in blood pressure. Still has been borderline blood pressures and briefly off of norepinephrine however currently back on 0.01. Denies any chest pain or pressure. Admits to some lower abdominal mild pain. Denies any shortness breath. Still appears mildly confused. Creatinine somewhat improved 2.9-2.5. Lasix was decreased to once a day. 03/05 Patient seen and examined. Denies any chest pain or pressure. He was more confused overnight requiring temporary restraints. Neurology consulted with recommendations of changing psychiatric medications. Cr improved today. Off and on low dose vasopressors. Procalcitonin mildly elevated. Echo performed with EF 40-45% with small pericardial effusion however no mention of any tamponade physiology. Off and on Aflutter with RVR HR's 90-120's PHYSICAL EXAMINATION Vital signs reviewed. CONSTITUTIONAL: No apparent distress, chornically ill appearing. Mildly confused, very hoarse voice HEENT: Head is normocephalic. Pupils are equal, round. Sclerae anicteric. Mucous membranes of the mouth are moist. No JVD. No carotid bruit. CHEST EXAMINATION: +crackles at bases, No chest wall tenderness is noted on palpation or with deep breathing. HEART EXAMINATION: tachy rate and regular rhythm. S1, S2 heard. No murmurs, gallops or rub. ABDOMEN: Soft, nontender. Positive bowel sounds. EXTREMITIES: 2+ peripheral pulses, 1+ lower extremity edema and no calf tenderness. NEUROLOGIC EXAMINATION: Patient is awake, alert and oriented x3. ASSESSMENT 1. Acute on chronic heart failure, systolic 2. Atrial flutter with RVR 3. Initial hypertensive emergency with blood pressure 200s over 130s improved, now hypotensive may be medication effect 4. Acute on chronic kidney injury 5. Medical noncompliance, patient recently ran out of numerous medications 6. Paroxysmal atrial fibrillation 7. Non-STEMI, likely type II mechanism related to hypoxia, hypertension, heart failure. Reported normal heart catheterization previously 8. Hypotension, rule out sepsis versus cardiogenic shock versus medication effect PLAN Patient remains off and on confused however appears somewhat improved today. Cr improved with supportive care. Denies much SOB. We will attempt rhythm control with Sotalol now that Cr improved for now and may consider PANDA/ CV pending patient's progress. Patient with small pericardial effusion and we will check repeat echo to rule out any progression given continued hypotension. Hypotension may still be medication effect however monitor for any infection. Cr appears improving. Objective - Vital Signs Vital signs: Vital Signs Temp 98 F 03/05/22 20:00 Pulse 106 H 03/05/22 21:30 Resp 22 03/05/22 21:30 BP 92/52 03/05/22 21:30 Pulse Ox 100 03/05/22 21:30 Intake & Output 03/05/22 03/05/22 03/06/22 06:59 18:59 06:59 Intake Total 212.554 382.92 64.805 Output Total 425 545 170 Balance -212.446 -162.08 -105.195 Weight 144.1 kg 144.1 kg Intake: IV 115 110 30 .9 KVO 115 110 30 Intake, IV Titration 97.554 50.92 34.805 Amount Norepinephrine 4 mg In 97.554 50.92 34.805 Sodium Chloride 0.9% 250 ml @ 0.05 MCG/KG/MIN 18. 383 mls/hr IV .[id number] [facility] Rx#:[id number] Oral 222 Output: Urine 425 545 170 Other: Voiding Method Indwelling Catheter Indwelling Catheter Indwelling Catheter - Labs CBC & Chem 7: 03/05/22 07:54 03/05/22 07:54 Labs: Abnormal Lab Results - Last 24 Hours (Table) 03/05/22 03/05/22 Range/Units 07:54 07:54 Hgb 11.9 L (13.0-17.5) gm/dL MCHC 29.7 L (31.0-37.0) g/dL RDW 16.0 H (11.5-15.5) % Sodium 135 L (137-145) mmol/L Carbon Dioxide 32 H (22-30) mmol/L BUN 34 H (9-20) mg/dL Creatinine 1.57 H (0.66-1.25) mg/dL Calcium 8.1 L (8.4-10.2) mg/dL
[2022-03-06] MEDS: NOREPINEPHRINE 4 MG in SODIUM CHLORIDE 0.9% 250 ML IV SCH ×3 (02:51→16:43)
[2022-03-06] MEDS: LEVOTHYROXINE 25 MCG TAB PO SCH (07:01)
[2022-03-06] MEDS: DILTIAZEM 125 MG in SODIUM CHLORIDE 0.9% 100 ML IV SCH ×2 (07:07→19:06)
[2022-03-06 07:25] LABS: Basophils # (A) 0.1 k/uL (0-0.2); Basophils % (A) 1 %; Eosinophils # (A) 0.4 k/uL (0-0.7); Eosinophils % (A) 5 %; HCT 37.8 % (39.0-53.0); HGB 11.6 gm/dL (13.0-17.5); Hypochromasia Slight; Lymphocytes # (A) 1.3 k/uL (1.0-4.8); Lymphocytes % (A) 17 %; MCHC 30.8 g/dL (31.0-37.0); MCV 87.8 fL (80.0-100.0); Mean Platelet Volume 9.2; Monocytes # (A) 0.8 k/uL (0-1.0); Monocytes % (A) 10 %; Neutrophils # (A) 5.2 k/uL (1.3-7.7); Neutrophils % (A) 66 %; Platelet Count 231 k/uL (150-450); RDW 15.9 % (11.5-15.5); WBC 7.9 k/uL (3.8-10.6)
[2022-03-06 07:28] LABS: Calcium 8.1 mg/dL (8.4-10.2); Potassium 4.1 mmol/L (3.5-5.1)
[2022-03-06] MEDS: FLUTICASONE 110 MCG INHALER INHALATION SCH ×2 (08:25→20:18)
--- NOTE | 2022-03-06 08:34 | XR ---
EXAMINATION TYPE: XR chest 1V portable DATE OF EXAM: 03/06/2022 COMPARISON: 03/05/2022 HISTORY: Shortness of breath TECHNIQUE: Single frontal view of the chest is obtained. FINDINGS: Bilateral consolidation and left pleural effusion. No overt failure or pneumothorax. Heart size prominent. Curvature of the spine noted. IMPRESSION: Bilateral infiltrate and small left pleural effusion. Findings stable.
[2022-03-06] MEDS: ALPRAZolam 0.5 MG TAB PO SCH ×3 (08:39→22:58)
[2022-03-06] MEDS: OXYBUTYNIN 10 MG TAB.ER.24 PO SCH ×2 (08:50→20:21)
[2022-03-06] MEDS: ARIPiprazole 10 MG TAB PO SCH (08:50)
[2022-03-06] MEDS: PREGABALIN 75 MG CAP PO SCH ×3 (08:50→23:25)
[2022-03-06] MEDS: lamoTRIgine 100 MG TAB PO SCH ×2 (08:51→20:25)
[2022-03-06] MEDS: DULoxetine HCL 60 MG CAPSULE.DR PO SCH (08:51)
[2022-03-06] MEDS: buPROPion XL 150 MG TAB.ER.24H PO SCH (08:52)
[2022-03-06] MEDS: ATORVASTATIN 20 MG TAB PO SCH (08:52)
[2022-03-06] MEDS: METOPROLOL TARTRATE 25 MG TAB PO SCH (08:52)
[2022-03-06] MEDS: ASPIRIN 325 MG TAB PO SCH (08:52)
[2022-03-06] MEDS ORDERED: TERBUTALINE 1 MG/ML VIAL SQ ONE (09:30)
[2022-03-06] MEDS: SODIUM CHLORIDE 0.9% 1,000 ML IV SCH ×2 (09:43→23:08)
--- NOTE | 2022-03-06 09:59 | P.PN ---
Subjective HISTORY OF PRESENTING ILLNESS Patient is a pleasant 77-year-old male with history of hypertension, hyperlipidemia, obesity, atrial fibrillation who presents secondary to worsening dyspnea over the last 3-4 weeks. He states [facility] He was scheduled to get an echo done however had a last minute trip to [place] and therefore went to [place] instead. He admits he was running out of his medications and thought he could get some of the medications in [place]. Therefore he has been out of number of his medications including his blood pressure meds as well as sotalol. Since coming back he has had pr ogressive dyspnea with 6 pillow orthopnea and increased lower extremity edema and therefore eventually had respiratory distress and EMS was called and patient found to be hypoxic in the 70s. Initial EKG read out as sinus rhythm, sinus tachycardia 130 bpm however has persistently been tachycardic at 1:30 without any variation. Appears concerning for atrial flutter with RVR. He was having significant chest pain and pressure yesterday when he was in respiratory distress however currently improved. He states he had a heart catheterization 5 years ago secondary to abnormal stress test and was told that his coronary arteries are "wide open". Initial lactic acid 4.3, total bilirubin 1.7, tropo juan carlos 0.16, 0.2, proBNP 18,900, TSH 5.1, creatinine 1.37 with baseline appearing to be 1.0 from December, white blood cell count 10.1. Initial blood pressure was in the 200s over 130 range however restarted on prior medications and better controlled. He states he is feeling somewhat better currently however still continued dyspnea and lower extremity edema. Denies any further chest pain. 03/03 Patient seen and examined. Patient denies any chest pain or pressure. He was started on Cardizem drip yesterday secondary to atrial flutter with RVR however became hypotensive. He did have good urine output with approximately -4 L more or less 24 hours. He has had however increased creatinine from 1.4 up to 2.9. A team was called this morning with another hypotensive episode. Heart rates continue to be in the low 100s to 130s. Remains in atrial flutter with variable conduction. Lactic acid has been normal. He has been somewhat more confused recently. He was feeling lightheaded previously during the hypotensive episode and had some chest discomfort. 03/04 Patient seen and examined. Patient transferred to ICU briefly placed on the Levophed and given additional IV fluid bolus yesterday with some improvement in blood pressure. Still has been borderline blood pressures and briefly off of norepinephrine however currently back on 0.01. Denies any chest pain or pressure. Admits to some lower abdominal mild pain. Denies any shortness breath. Still appears mildly confused. Creatinine somewhat improved 2.9-2.5. Lasix was decreased to once a day. 03/05 Patient seen and examined. Denies any chest pain or pressure. He was more confused overnight requiring temporary restraints. Neurology consulted with recommendations of changing psychiatric medications. Cr improved today. Off and on low dose vasopressors. Procalcitonin mildly elevated. Echo performed with EF 40-45% with small pericardial effusion however no mention of any tamponade physiology. Off and on Aflutter with RVR HR's 90-120's 03/06 Patient seen and examined. Patient states overall he is feeling better. He was having confusion and aggression yesterday requiring some held all however this has improved over last 24 hours. Telemetry reveals continued atrial flutter with heart rates 90s to low 100s. Creatinine again improved to 1.2 today. PHYSICAL EXAMINATION Vital signs reviewed. CONSTITUTIONAL: No apparent distress, chornically ill appearing. Mildly confused, very hoarse voice HEENT: Head is normocephalic. Pupils are equal, round. Sclerae anicteric. Mucous membranes of the mouth are moist. No JVD. No carotid bruit. CHEST EXAMINATION: +crackles at bases, No chest wall tenderness is noted on p alpation or with deep breathing. HEART EXAMINATION: tachy rate and regular rhythm. S1, S2 heard. No murmurs, gallops or rub. ABDOMEN: Soft, nontender. Positive bowel sounds. EXTREMITIES: 2+ peripheral pulses, 1+ lower extremity edema and no calf tenderness. NEUROLOGIC EXAMINATION: Patient is awake, alert and oriented x3. ASSESSMENT 1. Acute on chronic heart failure, systolic 2. Atrial flutter with RVR 3. Initial hypertensive emergency with blood pressure 200s over 130s improved, now hypotensive may be medication effect 4. Acute on chronic kidney injury 5. Medical noncompliance, patient recently ran out of numerous medications 6. Paroxysmal atrial fibrillation 7. Non-STEMI, likely type II mechanism related to hypoxia, hypertension, heart failure. Reported normal heart catheterization previously 8. Hypotension, rule out sepsis versus cardiogenic shock versus medication effect line 9. Lower extremity edema suspect component of chronic venous insufficiency PLAN Confusion appears to be improving. He still is requiring low dose of norepinephrine. Unclear etiology of hypotension. Agree with trial of small amount of IV fluids monitor response. Some of his lower extremity edema likely related to venous insufficiency. Start Midodin and attempt to wean norepinephrine. This may need to be titrated as an outpatient. He states he has never had issues with hypotension. Await repeat 2-D echo. Sotalol restarted given improved creatinine for attempt at rhythm control. Objective - Vital Signs Vital signs: Vital Signs Temp 97.8 F 03/06/22 08:00 Pulse 106 H 03/06/22 08:00 Resp 16 03/06/22 08:00 BP 94/66 03/06/22 08:00 Pulse Ox 96 03/06/22 08:00 Intake & Output 03/05/22 03/06/22 03/06/22 18:59 06:59 18:59 Intake Total 382.92 168.531 38.813 Output Total 545 515 150 Balance -162.08 -346.469 -111.187 Weight 144.1 kg 137.3 kg Intake: IV 110 120 20 .9 KVO 110 120 20 Intake, IV Titration 50.92 48.531 18.813 Amount Norepinephrine 4 mg In 50.92 48.531 18.813 Sodium Chloride 0.9% 250 ml @ 0.05 MCG/KG/MIN 18. 383 mls/hr IV .[id number] [facility] Rx#:[id number] Oral 222 Output: Urine 545 515 150 Other: Voiding Method Indwelling Catheter Indwelling Catheter - Labs CBC & Chem 7: 03/06/22 06:57 03/06/22 06:57 Labs: Abnormal Lab Results - Last 24 Hours (Table) 03/06/22 03/06/22 Range/Units 06:57 06:57 Hgb 11.6 L (13.0-17.5) gm/dL Hct 37.8 L (39.0-53.0) % MCHC 30.8 L (31.0-37.0) g/dL RDW 15.9 H (11.5-15.5) % Sodium 131 L (137-145) mmol/L Chloride 96 L (98-107) mmol/L BUN 28 H (9-20) mg/dL Creatinine 1.28 H (0.66-1.25) mg/dL Glucose 119 H (74-99) mg/dL Calcium 8.1 L (8.4-10.2) mg/dL
--- NOTE | 2022-03-06 10:57 | P.PN ---
Subjective Progress Note Date: 03/06/22 Principal diagnosis: Acute hypoxic respiratory failure secondary to acute on chronic systolic heart failure, ejection fraction 40-45%. This is a 77-year-old white male with history of multiple medical problems including chronic atrial fibrillation, hypertension, dyslipidemia, patient was admitted to the hospital on 03/01 with 3 week history of shortness of breath, patient was in [place] recently, round out of his cardiac medications, and his presentation to the hospital was typical of acute congestive heart failure complaining of shortness of breath, orthopnea, increased swelling in the lower extremities, and when EMS arrived he was hypoxic and O2 saturation in the 70s. In the ER the patient was noted to be in atrial flutter with RVR. Patient was seen by cardiology on consultation, felt that the patient had acute on chronic heart failure, echocardiogram is pending, he was also noted to have narrow complex tachycardia, initially his blood pressure was extremely high over 200 systolic, he was also noted to have acute on chronic kidney injury, and possibly non-ST elevation myocardial infarction. At any rate patient was treated with diuretics, he was placed on Cardizem drip, however yesterday his condition deteriorated, and he was transferred to the ICU. Hence this consult was initiated. I saw the patient this morning, he is on 2 L nasal cannula, O2 sats is 96%, he required norepinephrine at 0.01 mcg/kg/m, patient has been diuresing significantly, and her blood pressure is marginal this morning, hence I recommended that we cut down the Lasix to 40 mg daily chest x-ray is showing improvement considering her blood pressure is marginal I held his Lasix this morning. Once his blood pressure improves, we can potentially discontinue his norepinephrine. Losartan was also placed on hold by cardiology for his low blood pressure. He is now on 2 L nasal cannula, O2 saturation is 94-96%. Remains a little tachycardic, heart rate is 112, blood pressure was in the 70s earlier, now it is 91/63. WBC count is 8.6 hemoglobin 11.8 electrolytes are normal his BUN is 34 creatinine is down from 2.94-2.51 this morning Reevaluated today on 03/05/2022, patient remains in the ICU, intermittently on BiPAP 12/6/50%, intermittently in atrial flutter rate 120, off norepinephrine this morning, patient has been requiring Haldol for extreme agitation as a matter of fact I walked in to see the patient today this morning, he was extremely agitated requiring restraints, then Haldol was given, and that seemed to calm him down. Last night the patient was obtunded and a CT of the brain was negative for bleed. Patient required BiPAP for slightly elevated pCO2. He was on BiPAP onto the early this morning. Chest x-ray showed small left pleural effusion, and left lower lobe atelectasis. No clear-cut evidence of pneumonia. His chest x-ray is significantly improved compared to admission chest x-ray showing evidence of CHF. Lasix was discontinued. IV fluids at KVO. Today I recommended a psychiatric and a urological consultation on this patient to address mental status, and address his psychiatric medications. Obviously the patient is intermittently agitated, and combative Reevaluated today on 03/06/2022, patient continues to steadily improve, however today patient required placement on norepinephrine at 0.01 mcg/kg/m, and the IV infiltrated in his left forearm area, and that being addressed as per protocol. Blood pressure remains marginal however the patient has decent urine output, he is on room air, and he is not in any distress. Patient continues to have atrial flutter with heart rate ranging between 90-100. Patient is eating and drinking well, overall there is improvement, there is also improvement in his renal status. Once the patient is off norepinephrine we can potentially transfer the patient back to the cardiac floor. Patient was seen by psychiatry, and his psych medications were adjusted accordingly. He seems to be much calm today, and definitely not agitated. Objective - Vital Signs Vital signs: Vital Signs Temp 97.8 F 03/06/22 08:00 Pulse 103 H 03/06/22 10:00 Resp 15 03/06/22 10:00 BP 89/60 03/06/22 10:00 Pulse Ox 97 03/06/22 10:00 Intake & Output 03/05/22 03/06/22 03/06/22 18:59 06:59 18:59 Intake Total 382.92 168.531 123.813 Output Total 545 515 220 Balance -162.08 -346.469 -96.187 Weight 144.1 kg 137.3 kg Intake: IV 110 120 30 .9 KVO 110 120 30 Intake, IV Titration 50.92 48.531 93.813 Amount Norepinephrine 4 mg In 50.92 48.531 18.813 Sodium Chloride 0.9% 250 ml @ 0.05 MCG/KG/MIN 18. 383 mls/hr IV .[id number] [facility] Rx#:[id number] Sodium Chloride 0.9% 1, 75 000 ml @ 75 mls/hr IV . [id number] [facility] Rx#:[id number] Oral 222 Output: Urine 545 515 220 Other: Voiding Method Indwelling Catheter Indwelling Catheter - Exam Physical Exam: Revealed a 76-year-old white male, in no distress, on room air. Head: Atraumatic, normocephalic. HEENT:[Neck is supple.] [No neck masses.] [No thyromegaly.] [No JVD.] Chest: [Symmetrical chest expansion, minimal basilar crackles. Cardiac Exam: regular rhythm, distant S1 and S2, no S3 gallop. Abdomen: [Soft, nontender, no megaly, no rebound, no guarding, normal bowel sounds.] Extremities: [No clubbing, trace of bipedal edema, no cyanosis.] Good pulses bilaterally. Neurological Exam: Caudal, alert oriented 3 no gross focal deficits.. Psychiatric: Normal mood affect and normal mental status examination. Skin: No rashes. Erythema noted in the area of the left forearm where the norepinephrine infiltrated through the IV, and terbutaline is being used for that purpose Musculoskeletal: No deformities and no limitation in range of motion - Labs CBC & Chem 7: 03/06/22 06:57 03/06/22 06:57 Labs: Abnormal Lab Results - Last 24 Hours (Table) 03/06/22 03/06/22 Range/Units 06:57 06:57 Hgb 11.6 L (13.0-17.5) gm/dL Hct 37.8 L (39.0-53.0) % MCHC 30.8 L (31.0-37.0) g/dL RDW 15.9 H (11.5-15.5) % Sodium 131 L (137-145) mmol/L Chloride 96 L (98-107) mmol/L BUN 28 H (9-20) mg/dL Creatinine 1.28 H (0.66-1.25) mg/dL Glucose 119 H (74-99) mg/dL Calcium 8.1 L (8.4-10.2) mg/dL Assessment and Plan Assessment: Impression: Acute hypoxic respiratory failure secondary to acute on chronic systolic heart failure, ejection fraction of 40-45% Paroxysmal atrial fibrillation with RVR. Off Cardizem, remains on a low dose beta farhat. Metoprolol 12.5 mg by mouth twice a day. Possible non-ST elevation myocardial infarction Acute on chronic kidney injury Hypotension, medications induced and suspect overdiuresis. Intermittently patient is requiring norepinephrine, relatively very low dose History of obstructive sleep apnea syndrome History of prostate cancer and previous prostatectomy Idiopathic neuropathy Acute metabolic encephalopathy, intermittent agitation and combativeness. Recommendation: Continue present medications as noted Continue to monitor in the ICU Continue to hold diuretics Continue Xarelto Haldol when necessary for extreme agitation. Resume home meds including Lamictal, Synthroid, Cymbalta, and Lyrica We will continue to follow while in the ICU. Time with Patient: Less than 30
--- NOTE | 2022-03-06 12:25 | P.PN ---
Progress Note - Text Progress Note Date: 03/06/22 Interval History: Patient was seen resting in bed and was directable and agreeable to speak with va underwriter in his room., Patient is reporting that he is feeling much better compared to yesterday. He is currently alert and oriented in all spheres. He is currently denying any issues regarding his depression. He reports that his mood has been "great." He is currently denying any suicidal or homicidal ideation, intention, and/or plan. He is denying any auditory or visual h allucinations. He is not reporting any paranoia or other delusions. The patient has been adherent with his medications and is not reporting any significant side effects at this time. This provider discussed at length that he is on a significant amount of medications and offered to decrease/taper some of his medications. Patient does not wish to do so at this time. He was informed of the risks of coworker and use of Xanax and oxycodone. He would like to defer to his outpatient provider regarding these medications. The patient follows with Dr Beckham in [facility] for psychiatric care. Mental Status Exam: General Appearance: Patient appears to be stated age is alert, directable, and cooperative. Obese body habitus. Behavior: Patient is calmly seated without any agitated behavior. Eye contact is appropriate. Mild tremor on the right upper extremity. Speech: Patient's speech is fluent and nonpressured. Mood/Affect: Mood is "feeling great," affect is congruent and euthymic. Suicidality/Homicidality: Patient denies any suicidal or homicidal ideation, intention, and/or plan. Perceptions: Patient denies any visual hallucinations and denies any auditory hallucinations Though content/process: There is no evidence of any delusional thought content and thought process is linear and goal-directed. Memory and concentration: AOX3, grossly intact for the purposes of this session Judgment and insight: Improved Vital Signs Temp 97.8 F 03/06/22 08:00 Pulse 101 H 03/06/22 11:30 Resp 15 03/06/22 11:30 BP 92/58 03/06/22 11:30 Pulse Ox 96 03/06/22 11:30 Intake & Output 03/05/22 03/06/22 03/06/22 18:59 06:59 18:59 Intake Total 382.92 168.531 123.813 Output Total 545 515 220 Balance -162.08 -346.469 -96.187 Weight 144.1 kg 137.3 kg Intake: IV 110 120 30 .9 KVO 110 120 30 Intake, IV Titration 50.92 48.531 93.813 Amount Norepinephrine 4 mg In 50.92 48.531 18.813 Sodium Chloride 0.9% 250 ml @ 0.05 MCG/KG/MIN 18. 383 mls/hr IV .[id number] [facility] Rx#:[id number] Sodium Chloride 0.9% 1, 75 000 ml @ 75 mls/hr IV . [id number] [facility] Rx#:[id number] Oral 222 Output: Urine 545 515 220 Other: Voiding Method Indwelling Catheter Indwelling Catheter Indwelling Catheter Laboratory Results - Last 24 Hours 03/06/22 03/06/22 06:57 06:57 WBC 7.9 RBC 4.30 Hgb 11.6 L Hct 37.8 L MCV 87.8 MCH 27.0 MCHC 30.8 L RDW 15.9 H Plt Count 231 MPV 9.2 Neutrophils % 66 Lymphocytes % 17 Monocytes % 10 Eosinophils % 5 Basophils % 1 Neutrophils # 5.2 Lymphocytes # 1.3 Monocytes # 0.8 Eosinophils # 0.4 Basophils # 0.1 Hypochromasia Slight Sodium 131 L Potassium 4.1 Chloride 96 L Carbon Dioxide 28 Anion Gap 7 BUN 28 H Creatinine 1.28 H Est GFR (CKD-EPI)AfAm 63 Est GFR (CKD-EPI)NonAf 55 Glucose 119 H Calcium 8.1 L Assessment Altered mental status -resolved, likely secondary to multiple etiologies including acute metabolic encephalopathy, ICU psychosis, polypharmacy Major depressive disorder, per history Acute hypoxic respiratory failure secondary to acute on chronic systolic heart failure. Plan: -Continue your medical management -At this time patient DOES NOT meet criteria for inpatient psychiatric admission. 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 Continue Wellbutrin 150 mg by mouth daily Coninue Lamictal 150 mg by mouth twice a day, Cymbalta 120 mg by mouth daily, Abilify 20 mg daily. We will defer to his primary team in regards to his pain management. Continue Haldol PRN for agitation -Recommend outpatient psychiatric follow-up for management of his psychiatric medications with recommendations for minimizing his medications so as to decrease risk of polypharmacy. -Psychiatry will sign off at this time. Please call us with any questions or reconsult us if necessary. Thank you for this consult.
[2022-03-06] MEDS: MIDODRINE 5 MG TAB PO SCH ×2 (12:38→16:51)
[2022-03-06] MEDS: SOTALOL 80 MG TAB PO SCH ×2 (14:40→23:44)
[2022-03-06] MEDS: RIVAROXABAN 20 MG TAB PO SCH (16:51)
[2022-03-06] MEDS: METOPROLOL TARTRATE 12.5 MG TAB PO SCH (20:21)
[2022-03-07 05:12] LABS: Anisocytosis Slight; HCT 39.5 % (39.0-53.0); HGB 11.6 gm/dL (13.0-17.5); Hypochromasia Marked; MCH 26.7 pg (25.0-35.0); MCHC 29.4 g/dL (31.0-37.0); MCV 90.7 fL (80.0-100.0); Mean Platelet Volume 8.4; Platelet Count 298 k/uL (150-450); RBC 4.35 m/uL (4.30-5.90); RDW 16.1 % (11.5-15.5); WBC 8.3 k/uL (3.8-10.6)
[2022-03-07 05:32] LABS: Calcium 8.4 mg/dL (8.4-10.2); Magnesium 1.9 mg/dL (1.6-2.3); Potassium 4.2 mmol/L (3.5-5.1)
[2022-03-07] MEDS: NOREPINEPHRINE 4 MG in SODIUM CHLORIDE 0.9% 250 ML IV SCH ×2 (06:13→20:18)
[2022-03-07] MEDS: LEVOTHYROXINE 25 MCG TAB PO SCH (06:33)
[2022-03-07] MEDS: MIDODRINE 5 MG TAB PO SCH ×3 (06:33→17:27)
[2022-03-07] MEDS: DILTIAZEM 125 MG in SODIUM CHLORIDE 0.9% 100 ML IV SCH ×2 (07:42→20:19)
[2022-03-07] MEDS: ATORVASTATIN 20 MG TAB PO SCH (08:03)
[2022-03-07] MEDS: DULoxetine HCL 60 MG CAPSULE.DR PO SCH (08:03)
[2022-03-07] MEDS: FLUTICASONE 110 MCG INHALER INHALATION SCH ×2 (08:03→19:45)
[2022-03-07] MEDS: lamoTRIgine 100 MG TAB PO SCH ×2 (08:03→20:24)
[2022-03-07] MEDS: PREGABALIN 75 MG CAP PO SCH ×3 (08:04→22:48)
[2022-03-07] MEDS: METOPROLOL TARTRATE 12.5 MG TAB PO SCH ×2 (08:04→20:24)
[2022-03-07] MEDS: ALPRAZolam 0.5 MG TAB PO SCH ×3 (08:04→22:48)
[2022-03-07] MEDS: ASPIRIN 325 MG TAB PO SCH (08:04)
[2022-03-07] MEDS: buPROPion XL 150 MG TAB.ER.24H PO SCH (08:08)
[2022-03-07] MEDS: OXYBUTYNIN 10 MG TAB.ER.24 PO SCH ×2 (08:08→20:59)
[2022-03-07] MEDS: ARIPiprazole 10 MG TAB PO SCH (08:08)
[2022-03-07] MEDS: SOTALOL 80 MG TAB PO SCH ×2 (08:09→23:10)
[2022-03-07] MEDS: SODIUM CHLORIDE 0.9% 1,000 ML IV SCH (08:10)
--- NOTE | 2022-03-07 08:49 | P.PN ---
Subjective Progress Note Date: 03/06/22 Patient was seen for a follow-up. Patient's son and brother were present today. Patient has remarkably improved. He is fully awake. Mentation is normal. Patient informed me that he has been diagnosed with idiopathic sensory neuropathy. Patient has seen numerous neurologists in the past and most rece ntly Dr. [place] at [facility]. Patient states that he has a brother, and multiple cousins also with diagnoses of sensory neuropathy. Objective - Vital Signs Vital signs: Vital Signs Temp 98.0 F 03/06/22 16:00 Pulse 105 H 03/06/22 17:30 Resp 15 03/06/22 17:30 BP 107/76 03/06/22 17:30 Pulse Ox 99 03/06/22 17:30 Intake & Output 03/05/22 03/06/22 03/06/22 18:59 06:59 18:59 Intake Total 382.92 168.531 584.844 Output Total 545 515 660 Balance -162.08 -346.469 -75.156 Weight 144.1 kg 137.3 kg Intake: IV 110 120 480 .9 KVO 110 120 480 Intake, IV Titration 50.92 48.531 104.844 Amount Norepinephrine 4 mg In 50.92 48.531 29.844 Sodium Chloride 0.9% 250 ml @ 0.05 MCG/KG/MIN 18. 383 mls/hr IV .[id number] [facility] Rx#:[id number] Sodium Chloride 0.9% 1, 75 000 ml @ 75 mls/hr IV . [id number] [facility] Rx#:[id number] Oral 222 Output: Urine 545 515 660 Other: Voiding Method Indwelling Catheter Indwelling Catheter Indwelling Catheter - Exam Patient's mental status, speech and language functions are normal. Cranial nerves are normal, visual rose are full. Face is symmetric. Muscle strength is completely normal in arms and legs distally and proximally. Sensations are equal. No ataxia for hpudno-pc-ddgb testing. Tone and bulk of muscles normal. Gait deferred. Chest is clear. Abdomen soft nontender. Bowel sounds present. - Labs CBC & Chem 7: 03/07/22 04:32 03/07/22 04:32 Labs: Abnormal Lab Results - Last 24 Hours (Table) 05/18/22 05/18/22 Range/Units 06:57 06:57 Hgb 11.6 L (13.0-17.5) gm/dL Hct 37.8 L (39.0-53.0) % MCHC 30.8 L (31.0-37.0) g/dL RDW 15.9 H (11.5-15.5) % Sodium 131 L (137-145) mmol/L Chloride 96 L (98-107) mmol/L BUN 28 H (9-20) mg/dL Creatinine 1.28 H (0.66-1.25) mg/dL Glucose 119 H (74-99) mg/dL Calcium 8.1 L (8.4-10.2) mg/dL Assessment and Plan Assessment: * Altered mental status, most likely due to toxic metabolic encephalopathy. Etiology multifactorial as mentioned below. Patient's encephalopathy has remarkably improved today. * Polypharmacy is probably the likely cause of altered mental status * Mild to moderate renal insufficiency probably resulted in decreased clearance of some of the psychotropic medications resulting in encephalopathy. * Patient has been on opiates for a long time. Patient may be in partial opiate withdrawal, as he calms down after receiving opiate. * Acute hypoxic respiratory failure secondary to acute on chronic systolic heart failure, with EF 40-45%. * Paroxysmal atrial fibrillation * Hypertensive emergency * Obstructive sleep apnea * History of prostate cancer and previous prostatectomy * History of peripheral neuropathy Plan: * Patient's mentation has remarkably improved. He is now fully alert awake, oriented. Examination is nonfocal. * Continue with lower doses of Wellbutrin, Abilify and Lyrica. Patient was previously on Lyrica 150 mg 3 times a day, we will decrease the dose to 75 mg 3 times a day. Continue Lamictal. * CT head showed no acute process. Patient's limited neurological examination is relatively nonfocal. * Watch for opiate withdrawal. * 2-D echo revealed EF 40-45% with global hypokinesia. Mild right ventricle dilation. * Continue Xarelto for atrial fibrillation. * Patient's last hemoglobin A1c 5.9 on 11/14/2021. Last LDL 72.4 on 04/26/2021.
--- NOTE | 2022-03-07 10:06 | P.PN ---
Subjective Progress Note Date: 03/06/22 Patient is a 76-year-old male was admitted to hospital due to acute hypoxic respiratory failure secondary to acute on chronic systolic heart failure ejection fraction 40 to 45%. Patient does have multiple medical problems including chronic atrial fibrillation, hypertension, hyperlipidemia. Patient was requiring BiPAP and norepinephrine drip. Patient was agitated and requiring Haldol . Dose. 03/06/2022. Patient is currently in the MICU. Awake alert and oriented and mental status did improve. Patient is on norepinephrine was infiltrated into the left forearm . Otherwise a mckeon continues to be in atrial flutter. Sotalol was added as per cardiology recommendations. Otherwise denied any complaints of chest pain or shortness of breath. Still having significant leg swelling. No nausea vomiting or abdominal pain or diarrhea. Patient did not have a bowel movement last 2 days. Patient was also seen by psychiatric and medications were adjusted. Chest x-ray showed bilateral infiltrate and small left pleural effusion. Findings stable. Patient is being continued on Cardizem drip and on anticoagulation with Xarelto. Laboratory data showed WBC 7.9 hemoglobin 11.6 and platelets 231 sodium 131 potassium 4.1 chloride 96 bicarb is 28 BUN 28 creatinine 1.28 calcium 8.1. Pulmonary and cardiology is on board. Continue current medications reviewed. Objective - Vital Signs Vital signs: Vital Signs Temp 98.1 F 03/06/22 12:00 Pulse 105 H 03/06/22 15:00 Resp 18 03/06/22 15:00 BP 98/63 03/06/22 15:00 Pulse Ox 98 03/06/22 15:00 Intake & Output 03/05/22 03/06/22 03/06/22 18:59 06:59 18:59 Intake Total 382.92 168.531 509.844 Output Total 545 515 560 Balance -162.08 -346.469 -50.156 Weight 144.1 kg 137.3 kg Intake: IV 110 120 405 .9 KVO 110 120 405 Intake, IV Titration 50.92 48.531 104.844 Amount Norepinephrine 4 mg In 50.92 48.531 29.844 Sodium Chloride 0.9% 250 ml @ 0.05 MCG/KG/MIN 18. 383 mls/hr IV .[id number] [facility] Rx#:[id number] Sodium Chloride 0.9% 1, 75 000 ml @ 75 mls/hr IV . [id number] [facility] Rx#:[id number] Oral 222 Output: Urine 545 515 560 Other: Voiding Method Indwelling Catheter Indwelling Catheter Indwelling Catheter - Exam PHYSICAL EXAMINATION: Patient is lying in the bed comfortably, no acute distress, awake alert and oriented.. HEENT: Normocephalic. Neck is supple. Pupils reactive. Nostrils clear. Oral cavity is moist. Neck reveals no JVD, carotid bruits, or thyromegaly. CHEST EXAMINATION: Trachea is central. Symmetrical expansion. Bibasilar diminished sounds. Lung rose clear to auscultation and percussion. CARDIAC: Normal S1, S2 with no gallops. No murmurs. Irregularly irregular rhythm. ABDOMEN: Soft. Bowel sounds normal. No organomegaly. No abdominal bruits. Extremities. Patient does have bilateral 3+ pedal edema. No clubbing or cyanosis Neurologically awake, alert, oriented x3 with well-coordinated movements. No focal deficits noted Skin: No rash or skin lesions. Psychiatric: Coperative. Nonsuicidal Musculoskeletal: No joint swelling or deformity. Normal range of motion. - Labs CBC & Chem 7: 03/07/22 04:32 03/07/22 04:32 Labs: Abnormal Lab Results - Last 24 Hours (Table) 03/06/22 03/06/22 Range/Units 06:57 06:57 Hgb 11.6 L (13.0-17.5) gm/dL Hct 37.8 L (39.0-53.0) % MCHC 30.8 L (31.0-37.0) g/dL RDW 15.9 H (11.5-15.5) % Sodium 131 L (137-145) mmol/L Chloride 96 L (98-107) mmol/L BUN 28 H (9-20) mg/dL Creatinine 1.28 H (0.66-1.25) mg/dL Glucose 119 H (74-99) mg/dL Calcium 8.1 L (8.4-10.2) mg/dL Assessment and Plan Assessment: Acute hypoxic respiratory failure secondary to CHF requiring BiPAP. Acute on chronic CHF with systolic dysfunction ejection fraction 40 to 45% Chronic atrial fibrillation with RVR Elevated troponin level possible non-ST elevated CT Hypotension requiring pressor support possible medication induced and diuresis. Acute kidney injury likely prerenal. Possible ATN/. History of obstructive sleep apnea History of prostate cancer and prostatectomy Idiopathic bilateral peripheral neuropathy Acute metabolic encephalopathy with agitation and combativeness intermittently. DVT prophylaxis patient is already on full anticoagulation Plan: Patient is being continued on telemetry monitoring. Continue with Cardizem drip. Diuretics on hold due to acute kidney injury. Patient is on norepinephrine drip which is being titrated down. Continue with oxygen supplementation as needed. Heart rate is still elevated. Sotalol was added. Cardiology and pulmonary is on board. Continue to follow closely. Prognosis guarded. Time with Patient: Greater than 30
--- NOTE | 2022-03-07 10:55 | P.PN ---
Subjective HISTORY OF PRESENTING ILLNESS Patient is a pleasant 77-year-old male with history of hypertension, hyperlipidemia, obesity, atrial fibrillation who presents secondary to worsening dyspnea over the last 3-4 weeks. He states he normally follows with Dr. Kraft from [facility]. He was scheduled to get an echo done however had a last minute trip to [place] and therefore went to [place] instead. He admits he was running out of his medications and thought he could get some of the medications in [place]. Therefore he has been out of number of his medications including his blood pressure meds as well as sotalol. Since coming back he has had pr ogressive dyspnea with 6 pillow orthopnea and increased lower extremity edema and therefore eventually had respiratory distress and EMS was called and patient found to be hypoxic in the 70s. Initial EKG read out as sinus rhythm, sinus tachycardia 130 bpm however has persistently been tachycardic at 1:30 without any variation. Appears concerning for atrial flutter with RVR. He was having significant chest pain and pressure yesterday when he was in respiratory distress however currently improved. He states he had a heart catheterization 5 years ago secondary to abnormal stress test and was told that his coronary arteries are "wide open". Initial lactic acid 4.3, total bilirubin 1.7, tropo juan carlos 0.16, 0.2, proBNP 18,900, TSH 5.1, creatinine 1.37 with baseline appearing to be 1.0 from December, white blood cell count 10.1. Initial blood pressure was in the 200s over 130 range however restarted on prior medications and better controlled. He states he is feeling somewhat better currently however still continued dyspnea and lower extremity edema. Denies any further chest pain. 03/03 Patient seen and examined. Patient denies any chest pain or pressure. He was started on Cardizem drip yesterday secondary to atrial flutter with RVR however became hypotensive. He did have good urine output with approximately -4 L more or less 24 hours. He has had however increased creatinine from 1.4 up to 2.9. A team was called this morning with another hypotensive episode. Heart rates continue to be in the low 100s to 130s. Remains in atrial flutter with variable conduction. Lactic acid has been normal. He has been somewhat more confused recently. He was feeling lightheaded previously during the hypotensive episode and had some chest discomfort. 03/04 Patient seen and examined. Patient transferred to ICU briefly placed on the Levophed and given additional IV fluid bolus yesterday with some improvement in blood pressure. Still has been borderline blood pressures and briefly off of norepinephrine however currently back on 0.01. Denies any chest pain or pressure. Admits to some lower abdominal mild pain. Denies any shortness breath. Still appears mildly confused. Creatinine somewhat improved 2.9-2.5. Lasix was decreased to once a day. 03/05 Patient seen and examined. Denies any chest pain or pressure. He was more confused overnight requiring temporary restraints. Neurology consulted with recommendations of changing psychiatric medications. Cr improved today. Off and on low dose vasopressors. Procalcitonin mildly elevated. Echo performed with EF 40-45% with small pericardial effusion however no mention of any tamponade physiology. Off and on Aflutter with RVR HR's 90-120's 03/06 Patient seen and examined. Patient states overall he is feeling better. He was having confusion and aggression yesterday requiring some held all however this has improved over last 24 hours. Telemetry reveals continued atrial flutter with heart rates 90s to low 100s. Creatinine again improved to 1.2 today. 03/07 Patient seen and examined. Patient continues be more alert and denies any issues. Still on low-dose of norepinephrine and patient was started on Midrin yesterday. Cr improved to 1.1. Patient was placed on IV fluids. PHYSICAL EXAMINATION Vital signs reviewed. CONSTITUTIONAL: No apparent distress, chornically ill appearing. Mildly confused, very hoarse voice HEENT: Head is normocephalic. Pupils are equal, round. Sclerae anicteric. Mucous membranes of the mouth are moist. No JVD. No carotid bruit. CHEST EXAMINATION: +crackles at bases, No chest wall tenderness is noted on palpation or with deep breathing. HEART EXAMINATION: tachy rate and regular rhythm. S1, S2 heard. No murmurs, gallops or rub. ABDOMEN: Soft, nontender. Positive bowel sounds. EXTREMITIES: 2+ peripheral pulses, 1+ lower extremity edema and no calf tenderness. NEUROLOGIC EXAMINATION: Patient is awake, alert and oriented x3. ASSESSMENT 1. Acute on chronic heart failure, systolic 2. Atrial flutter with RVR 3. Initial hypertensive emergency with blood pressure 200s over 130s improved, now hypotensive may be medication effect 4. Acute on chronic kidney injury 5. Medical noncompliance, patient recently ran out of numerous medications 6. Paroxysmal atrial fibrillation 7. Non-STEMI, likely type II mechanism related to hypoxia, hypertension, heart failure. Reported normal heart catheterization previously 8. Hypotension, rule out sepsis versus cardiogenic shock versus medication effect line 9. Lower extremity edema suspect component of chronic venous insufficiency 9. Small localized pericardial effusion, no tamponade PLAN Patient appears to be improving slowly. Monitor response of IV fluids. Continue with Midrin. Wean vasopressors as able. Await repeat 2-D echo to monitor pericardial effusion. Continue sotalol for rhythm control. May consider PANDA cardioversion in the future. Objective - Vital Signs Vital signs: Vital Signs Temp 97.7 F 03/07/22 08:00 Pulse 90 03/07/22 09:00 Resp 12 03/07/22 09:00 BP 92/64 03/07/22 09:00 Pulse Ox 97 03/07/22 09:00 Intake & Output 03/06/22 03/07/22 03/07/22 18:59 06:59 18:59 Intake Total 973.276 8457.407 381.314 Output Total 730 690 70 Balance 4.844 471.407 311.314 Weight 138.3 kg Intake: IV 630 975 150 .9 KVO 630 975 Sodium Chloride 0.9% 1, 150 000 ml @ 75 mls/hr IV . [id number] [facility] Rx#:[id number] Intake, IV Titration 104.844 186.407 9.314 Amount Norepinephrine 4 mg In 29.844 186.407 9.314 Sodium Chloride 0.9% 250 ml @ 0.05 MCG/KG/MIN 18. 383 mls/hr IV .[id number] [facility] Rx#:[id number] Sodium Chloride 0.9% 1, 75 000 ml @ 75 mls/hr IV . [id number] [facility] Rx#:[id number] Oral 222 Output: Urine 730 690 70 Other: Voiding Method Indwelling Catheter Indwelling Catheter Indwelling Catheter - Labs CBC & Chem 7: 03/07/22 04:32 03/07/22 04:32 Labs: Abnormal Lab Results - Last 24 Hours (Table) 03/07/22 03/07/22 Range/Units 04:32 04:32 Hgb 11.6 L (13.0-17.5) gm/dL MCHC 29.4 L (31.0-37.0) g/dL RDW 16.1 H (11.5-15.5) % Sodium 135 L (137-145) mmol/L Chloride 96 L (98-107) mmol/L Carbon Dioxide 36 H (22-30) mmol/L BUN 24 H (9-20) mg/dL Glucose 110 H (74-99) mg/dL
--- NOTE | 2022-03-07 11:57 | P.PN ---
Subjective Progress Note Date: 03/07/22 Principal diagnosis: Acute hypoxic respiratory failure secondary to acute on chronic systolic heart failure, ejection fraction 40-45%. This is a 77-year-old white male with history of multiple medical problems including chronic atrial fibrillation, hypertension, dyslipidemia, patient was admitted to the hospital on 03/01 with 3 week history of shortness of breath, patient was in [place] recently, round out of his cardiac medications, and his presentation to the hospital was typical of acute congestive heart failure complaining of shortness of breath, orthopnea, increased swelling in the lower extremities, and when EMS arrived he was hypoxic and O2 saturation in the 70s. In the ER the patient was noted to be in atrial flutter with RVR. Patient was seen by cardiology on consultation, felt that the patient had acute on chronic heart failure, echocardiogram is pending, he was also noted to have narrow complex tachycardia, initially his blood pressure was extremely high over 200 systolic, he was also noted to have acute on chronic kidney injury, and possibly non-ST elevation myocardial infarction. At any rate patient was treated with diuretics, he was placed on Cardizem drip, however yesterday his condition deteriorated, and he was transferred to the ICU. Hence this consult was initiated. I saw the patient this morning, he is on 2 L nasal cannula, O2 sats is 96%, he required norepinephrine at 0.01 mcg/kg/m, patient has been diuresing significantly, and her blood pressure is marginal this morning, hence I recommended that we cut down the Lasix to 40 mg daily chest x-ray is showing improvement considering her blood pressure is marginal I held his Lasix this morning. Once his blood pressure improves, we can potentially discontinue his norepinephrine. Losartan was also placed on hold by cardiology for his low blood pressure. He is now on 2 L nasal cannula, O2 saturation is 94-96%. Remains a little tachycardic, heart rate is 112, blood pressure was in the 70s earlier, now it is 91/63. WBC count is 8.6 hemoglobin 11.8 electrolytes are normal his BUN is 34 creatinine is down from 2.94-2.51 this morning Reevaluated today on 03/05/2022, patient remains in the ICU, intermittently on BiPAP 12/6/50%, intermittently in atrial flutter rate 120, off norepinephrine this morning, patient has been requiring Haldol for extreme agitation as a matter of fact I walked in to see the patient today this morning, he was extremely agitated requiring restraints, then Haldol was given, and that seemed to calm him down. Last night the patient was obtunded and a CT of the brain was negative for bleed. Patient required BiPAP for slightly elevated pCO2. He was on BiPAP onto the early this morning. Chest x-ray showed small left pleural effusion, and left lower lobe atelectasis. No clear-cut evidence of pneumonia. His chest x-ray is significantly improved compared to admission chest x-ray showing evidence of CHF. Lasix was discontinued. IV fluids at KVO. Today I recommended a psychiatric and a urological consultation on this patient to address mental status, and address his psychiatric medications. Obviously the patient is intermittently agitated, and combative Reevaluated today on 03/06/2022, patient continues to steadily improve, however today patient required placement on norepinephrine at 0.01 mcg/kg/m, and the IV infiltrated in his left forearm area, and that being addressed as per protocol. Blood pressure remains marginal however the patient has decent urine output, he is on room air, and he is not in any distress. Patient continues to have atrial flutter with heart rate ranging between 90-100. Patient is eating and drinking well, overall there is improvement, there is also improvement in his renal status. Once the patient is off norepinephrine we can potentially transfer the patient back to the cardiac floor. Patient was seen by psychiatry, and his psych medications were adjusted accordingly. He seems to be much calm today, and definitely not agitated. Reevaluated today on 03/07/2022, patient is clinically better, however he is still requiring a small dose of norepinephrine at 0.02 mcg/kg/m. He is on IV fluid at 75 mL per hour. Patient is in atrial flutter. He was placed on midodrine at 10 mg 3 times a day for his low blood pressure. No major psychiatric issues over the last 2 days. Patient is very calm. And no further issues of restlessness and agitation. Labs today showed WBC count of 8.3 hemoglobin 11.6 platelets are normal electrolytes are normal bicarb is 36 BUN is 24 creatinine 1.1 improving. Objective - Vital Signs Vital signs: Vital Signs Temp 97.7 F 03/07/22 08:00 Pulse 90 03/07/22 09:00 Resp 12 03/07/22 09:00 BP 92/64 03/07/22 09:00 Pulse Ox 97 03/07/22 09:00 Intake & Output 03/06/22 03/07/22 03/07/22 18:59 06:59 18:59 Intake Total 912.890 4690.407 531.314 Output Total 730 690 170 Balance 4.844 471.407 361.314 Weight 138.3 kg Intake: IV 630 975 300 .9 KVO 630 975 Sodium Chloride 0.9% 1, 300 000 ml @ 75 mls/hr IV . [id number] [facility] Rx#:[id number] Intake, IV Titration 104.844 186.407 9.314 Amount Norepinephrine 4 mg In 29.844 186.407 9.314 Sodium Chloride 0.9% 250 ml @ 0.05 MCG/KG/MIN 18. 383 mls/hr IV .[id number] [facility] Rx#:[id number] Sodium Chloride 0.9% 1, 75 000 ml @ 75 mls/hr IV . [id number] [facility] Rx#:[id number] Oral 222 Output: Urine 730 690 170 Other: Voiding Method Indwelling Catheter Indwelling Catheter Indwelling Catheter - Exam Physical Exam: Revealed a 76-year-old white male, in no distress, on room air. Head: Atraumatic, normocephalic. HEENT:[Neck is supple.] [No neck masses.] [No thyromegaly.] [No JVD.] Chest: [Symmetrical chest expansion, diminished breath sounds at the bases no rhonchi no wheezes Cardiac Exam: regular rhythm, distant S1 and S2, no S3 gallop. Abdomen: [Soft, nontender, no megaly, no rebound, no guarding, normal bowel sounds.] Extremities: [No clubbing, trace of bipedal edema, no cyanosis.] Good pulses bilaterally. Neurological Exam: Awake alert oriented 3 no gross focal deficits.. Psychiatric: Normal mood affect and normal mental status examination. Skin: No rashes. No rashes Musculoskeletal: No deformities and no limitation in range of motion - Labs CBC & Chem 7: 03/07/22 04:32 03/07/22 04:32 Labs: Abnormal Lab Results - Last 24 Hours (Table) 03/07/22 03/07/22 Range/Units 04:32 04:32 Hgb 11.6 L (13.0-17.5) gm/dL MCHC 29.4 L (31.0-37.0) g/dL RDW 16.1 H (11.5-15.5) % Sodium 135 L (137-145) mmol/L Chloride 96 L (98-107) mmol/L Carbon Dioxide 36 H (22-30) mmol/L BUN 24 H (9-20) mg/dL Glucose 110 H (74-99) mg/dL Assessment and Plan Assessment: Impression: Acute hypoxic respiratory failure secondary to acute on chronic systolic heart failure, ejection fraction of 40-45% Atrial flutter, rate controlled. Possible non-ST elevation myocardial infarction Acute on chronic kidney injury Hypotension, medications induced and suspect overdiuresis. Presently on relatively low dose of norepinephrine, and he is receiving fluids as well as midodrine. History of obstructive sleep apnea syndrome History of prostate cancer and previous prostatectomy Idiopathic neuropathy Acute metabolic encephalopathy, intermittent agitation and combativeness. Resolved. Recommendation: Continue present medications as noted Continue to hold diuretics, continue IV fluids at 75 mL per hour Continue Xarelto Haldol when necessary for extreme agitation. Continue psychiatric medications We will continue to follow while in the ICU. As long as the patient is requiring norepinephrine Time with Patient: Less than 30
[2022-03-07] MEDS: RIVAROXABAN 20 MG TAB PO SCH (17:27)
[2022-03-08] MEDS: SODIUM CHLORIDE 0.9% 1,000 ML IV SCH (03:02)
[2022-03-08 06:14] LABS: HCT 36.8 % (39.0-53.0); HGB 10.9 gm/dL (13.0-17.5); Hypochromasia Marked; MCHC 29.6 g/dL (31.0-37.0); MCV 91.3 fL (80.0-100.0); Mean Platelet Volume 8.6; Platelet Count 242 k/uL (150-450); RBC 4.03 m/uL (4.30-5.90); RDW 15.9 % (11.5-15.5); WBC 6.9 k/uL (3.8-10.6)
[2022-03-08 06:29] LABS: Calcium 8.1 mg/dL (8.4-10.2); Potassium 4.6 mmol/L (3.5-5.1)
[2022-03-08] MEDS: MIDODRINE 5 MG TAB PO SCH ×3 (06:33→18:53)
[2022-03-08] MEDS: LEVOTHYROXINE 25 MCG TAB PO SCH (06:33)
[2022-03-08] MEDS ORDERED: HALOPERIDOL LACTATE 5 MG/ML 1 ML VIAL IVP STA (07:29)
[2022-03-08] MEDS: FLUTICASONE 110 MCG INHALER INHALATION SCH ×3 (08:03→19:50)
--- NOTE | 2022-03-08 09:12 | P.PN ---
Subjective Progress Note Date: 03/07/22 Patient was seen for a follow-up. Patient's son and brother were present today. Patient is sitting in the recliner. He is fully awake. Mentation is normal. Patient states that he worked with the therapist, and his balance was okay. Patient does have tremors at rest. Patient states that he was taking Abilify 40 mg daily. Recently it was decreased to 20 mg. Patient informed me that he has been diagnosed with idiopathic sensory neuropathy. Patient has seen numerous neurologists in the past and most recently Dr. Phillips at [facility]. Patient states that he has a brother, and multiple cousins also with diagnoses of sensory neuropathy. Objective - Vital Signs Vital signs: Vital Signs Temp 98.0 F 03/07/22 12:00 Pulse 89 03/07/22 16:00 Resp 14 03/07/22 16:00 BP 112/84 03/07/22 16:00 Pulse Ox 98 03/07/22 15:45 Intake & Output 03/06/22 03/07/22 03/07/22 18:59 06:59 18:59 Intake Total 568.103 9270.407 1002.334 Output Total 730 690 385 Balance 4.844 471.407 617.334 Weight 138.3 kg 138.3 kg Intake: IV 630 975 750 .9 KVO 630 975 Sodium Chloride 0.9% 1, 750 000 ml @ 75 mls/hr IV . [id number] [facility] Rx#:[id number] Intake, IV Titration 104.844 186.407 30.334 Amount Norepinephrine 4 mg In 29.844 186.407 30.334 Sodium Chloride 0.9% 250 ml @ 0.05 MCG/KG/MIN 18. 383 mls/hr IV .[id number] [facility] Rx#:[id number] Sodium Chloride 0.9% 1, 75 000 ml @ 75 mls/hr IV . [id number] [facility] Rx#:[id number] Oral 222 Output: Urine 730 690 385 Other: Voiding Method Indwelling Catheter Indwelling Catheter Indwelling Catheter - Exam Patient's mental status, speech and language functions are normal. Cranial nerves are normal, visual rose are full. Face is symmetric. Muscle strength is completely normal in arms and legs distally and proximally. Patient has obvious resting tremor of the right hand. Occasional resting tremor also noted of the left. Patient's tone is increased very mildly on the right, whereas mildly on the left. Patient is noted to have decreased frequency of blinking. Appears bradykinetic. His balance is also affected. He has parkinsonian features. Sensations are equal. No ataxia for [id number] testing. Bulk of muscles normal. Gait deferred. Chest is clear. Abdomen soft nontender. Bowel sounds present. Patient has peripheral edema. - Labs CBC & Chem 7: 03/08/22 05:57 03/08/22 05:57 Labs: Abnormal Lab Results - Last 24 Hours (Table) 03/07/22 03/07/22 Range/Units 04:32 04:32 Hgb 11.6 L (13.0-17.5) gm/dL MCHC 29.4 L (31.0-37.0) g/dL RDW 16.1 H (11.5-15.5) % Sodium 135 L (137-145) mmol/L Chloride 96 L (98-107) mmol/L Carbon Dioxide 36 H (22-30) mmol/L BUN 24 H (9-20) mg/dL Glucose 110 H (74-99) mg/dL Assessment and Plan Assessment: * Toxic metabolic encephalopathy, now resolved. Reasons were as mentioned below. * Parkinsonian features, with tremors at rest, mildly increased tone, bradykinesia and balance disorder. 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 Abilify may be the possible cause. * Polypharmacy is probably the likely cause of altered mental status * Mild to moderate renal insufficiency probably resulted in decreased clearance of some of the psychotropic medications resulting in encephalopathy. Renal functions back to normal. * Patient has been on opiates for a long time. Patient may be in partial opiate withdrawal, as he calms down after receiving opiate. * Acute hypoxic respiratory failure secondary to acute on chronic systolic heart failure, with EF 40-45%. * Paroxysmal atrial fibrillation * Hypertensive emergency * Obstructive sleep apnea * History of prostate cancer and previous prostatectomy * History of idiopathic sensory peripheral neuropathy Plan: * Patient is showing signs of parkinsonian features. Suspect drug-induced from Abilify. He used to be on Abilify 40 mg in the past. Prior to arrival he was on 20 mg of Abilify. We have further decrease it down to 10 mg daily. If his parkinsonian features persist, then either Abilify can be distracted continued, or Cogentin could be added. Psychiatry already on board. * Patient's mentation has remarkably improved. He is now fully alert awake, oriented. Examination is nonfocal. * Continue with lower doses of Wellbutrin, Abilify and Lyrica. Patient was previously on Lyrica 150 mg 3 times a day, we will decrease the dose to 75 mg 3 times a day. Continue Lamictal. * CT head showed no acute process. Patient's limited neurological examination is relatively nonfocal. * 2-D echo revealed EF 40-45% with global hypokinesia. Mild right ventricle dilation. * Continue Xarelto for atrial fibrillation. * Patient's last hemoglobin A1c 5.9 on 11/14/2021. Last LDL 72.4 on 04/26/2021. * We will check B12, folate. * Neurologically clear at this time. May follow up with neurologist as outpatient.
[2022-03-08] MEDS: ALPRAZolam 0.5 MG TAB PO SCH ×3 (10:16→21:02)
[2022-03-08] MEDS: lamoTRIgine 100 MG TAB PO SCH ×2 (10:16→20:02)
[2022-03-08] MEDS: buPROPion XL 150 MG TAB.ER.24H PO SCH (10:16)
[2022-03-08] MEDS: DULoxetine HCL 60 MG CAPSULE.DR PO SCH (10:16)
[2022-03-08] MEDS: DILTIAZEM 125 MG in SODIUM CHLORIDE 0.9% 100 ML IV SCH ×2 (10:16→21:29)
[2022-03-08] MEDS: ARIPiprazole 10 MG TAB PO SCH (10:16)
[2022-03-08] MEDS: OXYBUTYNIN 10 MG TAB.ER.24 PO SCH ×2 (10:17→20:02)
--- NOTE | 2022-03-08 10:35 | CA ---
Transthoracic Echo Report Name: Carlos Manuel Bustos Age: 76 Gender: M : 1945 Exam Date: 03/06/2022 12:41 Exam Location: [facility] Ht (in): 71 Wt (lb): 302 Ordering Physician: Ritesh Stock DO ([id number]) Attending/Referring Phys: Audit Specialist Johanna Moise RDCS Procedure CPT: Indications: re: hypotension reevaluate for pericardial effusio Cardiac Hx: Technical Quality: Very technically difficult study Contrast 1: Lumason Total Dose (mL): 1 Contrast 2: Total Dose (mL): MEASUREMENTS (Male / Female) Normal Values FINDINGS Left Ventricle Left ventricular ejection fraction is estimated at 40-45 %. No Tamponade Right Ventricle Right Atrium Left Atrium Mitral Valve Aortic Valve Tricuspid Valve Pulmonic Valve Pericardium Small Pericardial effusion filled with fibrous strands. Aorta CONCLUSIONS Technically difficult study for interpretation The LV ejection fraction is between 40-45% Probably small pericardial effusion Previewed by: Dr. Garcia Murray MD (Electronically Signed) Final Date: 08 Mar 2022 10:34
--- NOTE | 2022-03-08 12:32 | P.PN ---
Subjective Progress Note Date: 03/08/22 Principal diagnosis: Acute hypoxic respiratory failure secondary to acute on chronic systolic heart failure, ejection fraction 40-45%. This is a 77-year-old white male with history of multiple medical problems including chronic atrial fibrillation, hypertension, dyslipidemia, patient was admitted to the hospital on 03/01 with 3 week history of shortness of breath, patient was in [place] recently, round out of his cardiac medications, and his presentation to the hospital was typical of acute congestive heart failure complaining of shortness of breath, orthopnea, increased swelling in the lower extremities, and when EMS arrived he was hypoxic and O2 saturation in the 70s. In the ER the patient was noted to be in atrial flutter with RVR. Patient was seen by cardiology on consultation, felt that the patient had acute on chronic heart failure, echocardiogram is pending, he was also noted to have narrow complex tachycardia, initially his blood pressure was extremely high over 200 systolic, he was also noted to have acute on chronic kidney injury, and possibly non-ST elevation myocardial infarction. At any rate patient was treated with diuretics, he was placed on Cardizem drip, however yesterday his condition deteriorated, and he was transferred to the ICU. Hence this consult was initiated. I saw the patient this morning, he is on 2 L nasal cannula, O2 sats is 96%, he required norepinephrine at 0.01 mcg/kg/m, patient has been diuresing significantly, and her blood pressure is marginal this morning, hence I recommended that we cut down the Lasix to 40 mg daily chest x-ray is showing improvement considering her blood pressure is marginal I held his Lasix this morning. Once his blood pressure improves, we can potentially discontinue his norepinephrine. Losartan was also placed on hold by cardiology for his low blood pressure. He is now on 2 L nasal cannula, O2 saturation is 94-96%. Remains a little tachycardic, heart rate is 112, blood pressure was in the 70s earlier, now it is 91/63. WBC count is 8.6 hemoglobin 11.8 electrolytes are normal his BUN is 34 creatinine is down from 2.94-2.51 this morning Reevaluated today on 03/05/2022, patient remains in the ICU, intermittently on BiPAP 12/6/50%, intermittently in atrial flutter rate 120, off norepinephrine this morning, patient has been requiring Haldol for extreme agitation as a matter of fact I walked in to see the patient today this morning, he was extremely agitated requiring restraints, then Haldol was given, and that seemed to calm him down. Last night the patient was obtunded and a CT of the brain was negative for bleed. Patient required BiPAP for slightly elevated pCO2. He was on BiPAP onto the early this morning. Chest x-ray showed small left pleural effusion, and left lower lobe atelectasis. No clear-cut evidence of pneumonia. His chest x-ray is significantly improved compared to admission chest x-ray showing evidence of CHF. Lasix was discontinued. IV fluids at KVO. Today I recommended a psychiatric and a urological consultation on this patient to address mental status, and address his psychiatric medications. Obviously the patient is intermittently agitated, and combative Reevaluated today on 03/06/2022, patient continues to steadily improve, however today patient required placement on norepinephrine at 0.01 mcg/kg/m, and the IV infiltrated in his left forearm area, and that being addressed as per protocol. Blood pressure remains marginal however the patient has decent urine output, he is on room air, and he is not in any distress. Patient continues to have atrial flutter with heart rate ranging between 90-100. Patient is eating and drinking well, overall there is improvement, there is also improvement in his renal status. Once the patient is off norepinephrine we can potentially transfer the patient back to the cardiac floor. Patient was seen by psychiatry, and his psych medications were adjusted accordingly. He seems to be much calm today, and definitely not agitated. Reevaluated today on 03/07/2022, patient is clinically better, however he is still requiring a small dose of norepinephrine at 0.02 mcg/kg/m. He is on IV fluid at 75 mL per hour. Patient is in atrial flutter. He was placed on midodrine at 10 mg 3 times a day for his low blood pressure. No major psychiatric issues over the last 2 days. Patient is very calm. And no further issues of restlessness and agitation. Labs today showed WBC count of 8.3 hemoglobin 11.6 platelets are normal electrolytes are normal bicarb is 36 BUN is 24 creatinine 1.1 improving. Patient was reevaluated today on 03/08/22, patient had another episode of extreme agitation today, required 4 point restraints, and he received Haldol to calm him down. When I saw the patient he seems to be called, and in no distress. Patient was on BiPAP last night, I recommended that he goes on BiPAP this morning since he is calm enough to tolerate BiPAP. His O2 saturation room air is 91%. Patient was placed on BiPAP 30%. He is in atrial fibrillation rate controlled 83/m. And apparently the patient responded well to Haldol. Recommended that psychiatry will see the patient again and adjust his medication. WBC count 6.9 hemoglobin is 10.9. Electrolytes and basic metabolic profile are relatively normal. Objective - Vital Signs Vital signs: Vital Signs Temp 98.0 F 03/08/22 08:00 Pulse 87 03/08/22 10:00 Resp 12 03/08/22 10:00 BP 84/63 03/08/22 10:00 Pulse Ox 97 03/08/22 10:00 Intake & Output 03/07/22 03/08/22 03/08/22 18:59 06:59 18:59 Intake Total 9661.818 6543 Output Total 410 410 90 Balance 1067.334 615 -90 Weight 138.3 kg 143.9 kg Intake: IV 825 975 Sodium Chloride 0.9% 1, 825 975 000 ml @ 75 mls/hr IV . [id number] [facility] Rx#:[id number] Intake, IV Titration 30.334 Amount Norepinephrine 4 mg In 30.334 Sodium Chloride 0.9% 250 ml @ 0.05 MCG/KG/MIN 18. 383 mls/hr IV .[id number] [facility] Rx#:[id number] Oral 622 50 Output: Urine 410 410 90 Other: Voiding Method Indwelling Catheter Indwelling Catheter - Exam Physical Exam: Revealed a 76-year-old white male, in no distress, on room air. Head: Atraumatic, normocephalic. HEENT:[Neck is supple.] [No neck masses.] [No thyromegaly.] [No JVD.] Chest: [Symmetrical chest expansion, diminished breath sounds at the bases no rhonchi no wheezes Cardiac Exam: regular rhythm, distant S1 and S2, no S3 gallop. Abdomen: [Soft, nontender, no megaly, no rebound, no guarding, normal bowel sounds.] Extremities: [No clubbing, trace of bipedal edema, no cyanosis.] Good pulses bilaterally. Neurological Exam: Cannot assess, patient just received Haldol, he is calm and sedated. Psychiatric: Cannot assess Skin: No rashes. No rashes Musculoskeletal: No deformities and no limitation in range of motion - Labs CBC & Chem 7: 03/08/22 05:57 03/08/22 05:57 Labs: Abnormal Lab Results - Last 24 Hours (Table) 03/08/22 03/08/22 Range/Units 05:57 05:57 RBC 4.03 L (4.30-5.90) m/uL Hgb 10.9 L (13.0-17.5) gm/dL Hct 36.8 L (39.0-53.0) % MCHC 29.6 L (31.0-37.0) g/dL RDW 15.9 H (11.5-15.5) % Sodium 133 L (137-145) mmol/L Carbon Dioxide 33 H (22-30) mmol/L BUN 26 H (9-20) mg/dL Calcium 8.1 L (8.4-10.2) mg/dL Assessment and Plan Assessment: Impression: Acute hypoxic respiratory failure secondary to acute on chronic systolic heart failure, ejection fraction of 40-45% Atrial flutter, rate controlled. Possible non-ST elevation myocardial infarction Acute on chronic kidney injury Hypotension, medications induced and suspect overdiuresis. Presently on relatively low dose of norepinephrine, and he is receiving fluids as well as midodrine. History of obstructive sleep apnea syndrome History of prostate cancer and previous prostatectomy Idiopathic neuropathy Acute metabolic encephalopathy, intermittent agitation and combativeness. Resolved. Recommendation: Continue Haldol as needed Continue present medications as noted Continue to hold diuretics, continue IV fluids at 75 mL per hour Continue Xarelto Continue psychiatric medications, patient to be reevaluate by psychiatry again regarding his intermittent agitations and medications adjustment. We will continue to follow while in the ICU. Time with Patient: Less than 30
--- NOTE | 2022-03-08 12:47 | P.PN ---
Subjective HISTORY OF PRESENTING ILLNESS Patient is a pleasant 77-year-old male with history of hypertension, hyperlipidemia, obesity, atrial fibrillation who presents secondary to worsening dyspnea over the last 3-4 weeks. He states he normally follows with Dr. Kraft from [facility]. He was scheduled to get an echo done however had a last minute trip to [place] and therefore went to [place] instead. He admits he was running out of his medications and thought he could get some of the medications in [place]. Therefore he has been out of number of his medications including his blood pressure meds as well as sotalol. Since coming back he has had pr ogressive dyspnea with 6 pillow orthopnea and increased lower extremity edema and therefore eventually had respiratory distress and EMS was called and patient found to be hypoxic in the 70s. Initial EKG read out as sinus rhythm, sinus tachycardia 130 bpm however has persistently been tachycardic at 1:30 without any variation. Appears concerning for atrial flutter with RVR. He was having significant chest pain and pressure yesterday when he was in respiratory distress however currently improved. He states he had a heart catheterization 5 years ago secondary to abnormal stress test and was told that his coronary arteries are "wide open". Initial lactic acid 4.3, total bilirubin 1.7, tropo juan carlos 0.16, 0.2, proBNP 18,900, TSH 5.1, creatinine 1.37 with baseline appearing to be 1.0 from December, white blood cell count 10.1. Initial blood pressure was in the 200s over 130 range however restarted on prior medications and better controlled. He states he is feeling somewhat better currently however still continued dyspnea and lower extremity edema. Denies any further chest pain. 03/03 Patient seen and examined. Patient denies any chest pain or pressure. He was started on Cardizem drip yesterday secondary to atrial flutter with RVR however became hypotensive. He did have good urine output with approximately -4 L more or less 24 hours. He has had however increased creatinine from 1.4 up to 2.9. A team was called this morning with another hypotensive episode. Heart rates continue to be in the low 100s to 130s. Remains in atrial flutter with variable conduction. Lactic acid has been normal. He has been somewhat more confused recently. He was feeling lightheaded previously during the hypotensive episode and had some chest discomfort. 03/04 Patient seen and examined. Patient transferred to ICU briefly placed on the Levophed and given additional IV fluid bolus yesterday with some improvement in blood pressure. Still has been borderline blood pressures and briefly off of norepinephrine however currently back on 0.01. Denies any chest pain or pressure. Admits to some lower abdominal mild pain. Denies any shortness breath. Still appears mildly confused. Creatinine somewhat improved 2.9-2.5. Lasix was decreased to once a day. 03/05 Patient seen and examined. Denies any chest pain or pressure. He was more confused overnight requiring temporary restraints. Neurology consulted with recommendations of changing psychiatric medications. Cr improved today. Off and on low dose vasopressors. Procalcitonin mildly elevated. Echo performed with EF 40-45% with small pericardial effusion however no mention of any tamponade physiology. Off and on Aflutter with RVR HR's 90-120's 03/06 Patient seen and examined. Patient states overall he is feeling better. He was having confusion and aggression yesterday requiring some held all however this has improved over last 24 hours. Telemetry reveals continued atrial flutter with heart rates 90s to low 100s. Creatinine again improved to 1.2 today. 03/07 Patient seen and examined. Patient continues be more alert and denies any issues. Still on low-dose of norepinephrine and patient was started on Midrin yesterday. Cr improved to 1.1. Patient was placed on IV fluids. 03/08 Patient seen and examined. Patient had increased episode of agitation requiring Haldol yesterday. He has been on the sotalol however no prolongation his QT noted this morning. He remains confused and aggressive this morning. Blood pressures have remained or line and he has been off of the norepinephrine since yesterday. Remains in atrial flutter with relatively controlled rates. PHYSICAL EXAMINATION Vital signs reviewed. CONSTITUTIONAL: No apparent distress, chornically ill appearing. Mildly confused, very hoarse voice HEENT: Head is normocephalic. Pupils are equal, round. Sclerae anicteric. Mucous membranes of the mouth are moist. No JVD. No carotid bruit. CHEST EXAMINATION: +crackles at bases, No chest wall tenderness is noted on palpation or with deep breathing. HEART EXAMINATION: tachy rate and regular rhythm. S1, S2 heard. No murmurs, gallops or rub. ABDOMEN: Soft, nontender. Positive bowel sounds. EXTREMITIES: 2+ peripheral pulses, 1+ lower extremity edema and no calf tenderness. NEUROLOGIC EXAMINATION: Patient is somnolent and restrained ASSESSMENT 1. Acute on chronic heart failure, systolic 2. Atrial flutter with RVR 3. Initial hypertensive emergency with blood pressure 200s over 130s improved, now hypotensive may be medication effect 4. Acute on chronic kidney injury 5. Medical noncompliance, patient recently ran out of numerous medications 6. Paroxysmal atrial fibrillation 7. Non-STEMI, likely type II mechanism related to hypoxia, hypertension, heart failure. Reported normal heart catheterization previously 8. Hypotension, rule out sepsis versus cardiogenic shock versus medication effect line 9. Lower extremity edema suspect component of chronic venous insufficiency 9. Small localized pericardial effusion, no tamponade PLAN She'll presentation with heart failure symptoms extremely hypertensive. He has been hypotensive requiring intermittent vasopressors which may better related to overmedication however he had been restarted on his home medications which she had not been taking for the prior 3-4 weeks. Additionally issues with changes in his antipsychotic medications and increased episodes of aggression. Appears fairly stable from heart failure standpoint with chronic lower extremity edema. Continue supportive care. Acute kidney injury is improving. May always consider rhythm control with PANDA, cardioversion in the future as he may be symptomatic from his atrial flutter however at this point continue medications. Monitor Haldol use with sotalol for any QT prolongation however at this point no significant QT prolongation. Objective - Vital Signs Vital signs: Vital Signs Temp 98.0 F 03/08/22 08:00 Pulse 87 03/08/22 10:00 Resp 12 03/08/22 10:00 BP 84/63 03/08/22 10:00 Pulse Ox 97 03/08/22 10:00 Intake & Output 03/07/22 03/08/22 03/08/22 18:59 06:59 18:59 Intake Total 7299.779 3900 Output Total 410 410 90 Balance 1067.334 615 -90 Weight 138.3 kg 143.9 kg Intake: IV 825 975 Sodium Chloride 0.9% 1, 825 975 000 ml @ 75 mls/hr IV . [id number] [facility] Rx#:[id number] Intake, IV Titration 30.334 Amount Norepinephrine 4 mg In 30.334 Sodium Chloride 0.9% 250 ml @ 0.05 MCG/KG/MIN 18. 383 mls/hr IV .[id number] [facility] Rx#:[id number] Oral 622 50 Output: Urine 410 410 90 Other: Voiding Method Indwelling Catheter Indwelling Catheter - Labs CBC & Chem 7: 03/08/22 05:57 03/08/22 05:57 Labs: Abnormal Lab Results - Last 24 Hours (Table) 03/08/22 03/08/22 Range/Units 05:57 05:57 RBC 4.03 L (4.30-5.90) m/uL Hgb 10.9 L (13.0-17.5) gm/dL Hct 36.8 L (39.0-53.0) % MCHC 29.6 L (31.0-37.0) g/dL RDW 15.9 H (11.5-15.5) % Sodium 133 L (137-145) mmol/L Carbon Dioxide 33 H (22-30) mmol/L BUN 26 H (9-20) mg/dL Calcium 8.1 L (8.4-10.2) mg/dL
[2022-03-08] MEDS: NOREPINEPHRINE 4 MG in SODIUM CHLORIDE 0.9% 250 ML IV SCH (15:47)
[2022-03-08] MEDS: PREGABALIN 75 MG CAP PO SCH ×3 (15:47→21:02)
[2022-03-08] MEDS: ASPIRIN 325 MG TAB PO SCH (18:26)
[2022-03-08] MEDS: METOPROLOL TARTRATE 12.5 MG TAB PO SCH ×2 (18:26→18:57)
[2022-03-08] MEDS: SOTALOL 80 MG TAB PO SCH ×2 (18:46→21:02)
[2022-03-08] MEDS: ATORVASTATIN 20 MG TAB PO SCH (18:57)
[2022-03-08] MEDS: RIVAROXABAN 20 MG TAB PO SCH (18:59)
[2022-03-09] MEDS: FLUTICASONE 110 MCG INHALER INHALATION SCH ×2 (07:24→19:46)
[2022-03-09 07:59] LABS: Anisocytosis Slight; Basophils # (A) 0.1 k/uL (0-0.2); Basophils % (A) 1 %; Eosinophils # (A) 0.4 k/uL (0-0.7); Eosinophils % (A) 6 %; HCT 38.1 % (39.0-53.0); HGB 11.4 gm/dL (13.0-17.5); Hypochromasia Moderate; Lymphocytes # (A) 1.4 k/uL (1.0-4.8); Lymphocytes % (A) 23 %; MCHC 30.1 g/dL (31.0-37.0); MCV 89.7 fL (80.0-100.0); Mean Platelet Volume 8.3; Monocytes # (A) 0.5 k/uL (0-1.0); Monocytes % (A) 8 %; Neutrophils # (A) 3.6 k/uL (1.3-7.7); Neutrophils % (A) 60 %; Platelet Count 268 k/uL (150-450); RBC 4.24 m/uL (4.30-5.90); RDW 16.3 % (11.5-15.5)
[2022-03-09 08:18] LABS: Calcium 8.4 mg/dL (8.4-10.2); Potassium 4.2 mmol/L (3.5-5.1)
[2022-03-09] MEDS: ALPRAZolam 0.5 MG TAB PO SCH ×3 (09:08→23:27)
[2022-03-09] MEDS: MIDODRINE 5 MG TAB PO SCH ×3 (09:09→16:04)
[2022-03-09] MEDS: ATORVASTATIN 20 MG TAB PO SCH (09:09)
[2022-03-09] MEDS: lamoTRIgine 100 MG TAB PO SCH ×2 (09:09→21:06)
[2022-03-09] MEDS: LEVOTHYROXINE 25 MCG TAB PO SCH (09:09)
[2022-03-09] MEDS: PREGABALIN 75 MG CAP PO SCH ×3 (09:09→21:06)
[2022-03-09] MEDS: ASPIRIN 81 MG PO SCH (09:09)
[2022-03-09] MEDS: DULoxetine HCL 60 MG CAPSULE.DR PO SCH (09:09)
[2022-03-09] MEDS: buPROPion XL 150 MG TAB.ER.24H PO SCH (09:10)
[2022-03-09] MEDS: OXYBUTYNIN 10 MG TAB.ER.24 PO SCH ×2 (09:10→21:06)
[2022-03-09] MEDS: METOPROLOL TARTRATE 25 MG TAB PO SCH ×2 (09:10→21:05)
[2022-03-09] MEDS: ARIPiprazole 10 MG TAB PO SCH (09:10)
[2022-03-09] MEDS: SOTALOL 80 MG TAB PO SCH ×2 (09:10→22:36)
[2022-03-09] MEDS: DILTIAZEM 125 MG in SODIUM CHLORIDE 0.9% 100 ML IV SCH ×2 (09:11→22:33)
--- NOTE | 2022-03-09 09:14 | PN ---
PROGRESS NOTE This gentleman has nonischemic cardiomyopathy and atrial fibrillation. He came into the hospital after not taking his medications. He was found to be hypoxic, however. He also had some agitation yesterday but this morning is very appropriate, resting comfortably, hemodynamically stable. He is in atrial fibrillation. Rate is about 90. I am recommending increasing the metoprolol tartrate to 25 mg b.i.d., increase activity and see how he does. Possibly he can be moved to telemetry. Vitals are stable. No JVD. S1- S2 heard normally. Irregular rhythm noted. Short systolic murmur noted. Lungs reveal diminished air entry. Abdomen is soft, nontender. Lower extremities reveal diminished pulses. Central nervous system: No focal deficits. MMODL / IJN: [id number] /
--- NOTE | 2022-03-09 10:32 | P.PN ---
Subjective Progress Note Date: 03/09/22 Principal diagnosis: Acute hypoxic respiratory failure secondary to acute on chronic systolic heart failure, ejection fraction 40-45%. This is a 77-year-old white male with history of multiple medical problems including chronic atrial fibrillation, hypertension, dyslipidemia, patient was admitted to the hospital on 03/01 with 3 week history of shortness of breath, patient was in [place] recently, round out of his cardiac medications, and his presentation to the hospital was typical of acute congestive heart failure complaining of shortness of breath, orthopnea, increased swelling in the lower extremities, and when EMS arrived he was hypoxic and O2 saturation in the 70s. In the ER the patient was noted to be in atrial flutter with RVR. Patient was seen by cardiology on consultation, felt that the patient had acute on chronic heart failure, echocardiogram is pending, he was also noted to have narrow complex tachycardia, initially his blood pressure was extremely high over 200 systolic, he was also noted to have acute on chronic kidney injury, and possibly non-ST elevation myocardial infarction. At any rate patient was treated with diuretics, he was placed on Cardizem drip, however yesterday his condition deteriorated, and he was transferred to the ICU. Hence this consult was initiated. I saw the patient this morning, he is on 2 L nasal cannula, O2 sats is 96%, he required norepinephrine at 0.01 mcg/kg/m, patient has been diuresing significantly, and her blood pressure is marginal this morning, hence I recommended that we cut down the Lasix to 40 mg daily chest x-ray is showing improvement considering her blood pressure is marginal I held his Lasix this morning. Once his blood pressure improves, we can potentially discontinue his norepinephrine. Losartan was also placed on hold by cardiology for his low blood pressure. He is now on 2 L nasal cannula, O2 saturation is 94-96%. Remains a little tachycardic, heart rate is 112, blood pressure was in the 70s earlier, now it is 91/63. WBC count is 8.6 hemoglobin 11.8 electrolytes are normal his BUN is 34 creatinine is down from 2.94-2.51 this morning Reevaluated today on 03/05/2022, patient remains in the ICU, intermittently on BiPAP 12/6/50%, intermittently in atrial flutter rate 120, off norepinephrine this morning, patient has been requiring Haldol for extreme agitation as a matter of fact I walked in to see the patient today this morning, he was extremely agitated requiring restraints, then Haldol was given, and that seemed to calm him down. Last night the patient was obtunded and a CT of the brain was negative for bleed. Patient required BiPAP for slightly elevated pCO2. He was on BiPAP onto the early this morning. Chest x-ray showed small left pleural effusion, and left lower lobe atelectasis. No clear-cut evidence of pneumonia. His chest x-ray is significantly improved compared to admission chest x-ray showing evidence of CHF. Lasix was discontinued. IV fluids at KVO. Today I recommended a psychiatric and a urological consultation on this patient to address mental status, and address his psychiatric medications. Obviously the patient is intermittently agitated, and combative Reevaluated today on 03/06/2022, patient continues to steadily improve, however today patient required placement on norepinephrine at 0.01 mcg/kg/m, and the IV infiltrated in his left forearm area, and that being addressed as per protocol. Blood pressure remains marginal however the patient has decent urine output, he is on room air, and he is not in any distress. Patient continues to have atrial flutter with heart rate ranging between 90-100. Patient is eating and drinking well, overall there is improvement, there is also improvement in his renal status. Once the patient is off norepinephrine we can potentially transfer the patient back to the cardiac floor. Patient was seen by psychiatry, and his psych medications were adjusted accordingly. He seems to be much calm today, and definitely not agitated. Reevaluated today on 03/07/2022, patient is clinically better, however he is still requiring a small dose of norepinephrine at 0.02 mcg/kg/m. He is on IV fluid at 75 mL per hour. Patient is in atrial flutter. He was placed on midodrine at 10 mg 3 times a day for his low blood pressure. No major psychiatric issues over the last 2 days. Patient is very calm. And no further issues of restlessness and agitation. Labs today showed WBC count of 8.3 hemoglobin 11.6 platelets are normal electrolytes are normal bicarb is 36 BUN is 24 creatinine 1.1 improving. Patient was reevaluated today on 03/08/22, patient had another episode of extreme agitation today, required 4 point restraints, and he received Haldol to calm him down. When I saw the patient he seems to be called, and in no distress. Patient was on BiPAP last night, I recommended that he goes on BiPAP this morning since he is calm enough to tolerate BiPAP. His O2 saturation room air is 91%. Patient was placed on BiPAP 12/30%. He is in atrial fibrillation rate controlled 83/m. And apparently the patient responded well to Haldol. Recommended that psychiatry will see the patient again and adjust his medication. WBC count 6.9 hemoglobin is 10.9. Electrolytes and basic metabolic profile are relatively normal. reevaluated today on 03/09/22, patient remains in the ICU, he seems to be calm today, is not requiring any pressors, hemodynamically stable, intermittently has been on BiPAP, he seems to be more calm today, and he seems to be very appropriate. She is on room air, not requiring any oxygen, and he remains in atrial fibrillation, rate is well-controlled.CBC today is relatively normal electrolytes are normal renal profile is normal Objective - Vital Signs Vital signs: Vital Signs Temp 98.6 F 03/09/22 08:00 Pulse 81 03/09/22 10:00 Resp 21 03/09/22 10:00 BP 106/90 03/09/22 10:00 Pulse Ox 92 L 03/09/22 10:00 Intake & Output 03/08/22 03/09/22 03/09/22 18:59 06:59 18:59 Intake Total 322 420 Output Total 505 755 245 Balance -505 -433 175 Weight 154.2 kg Intake: Oral 322 420 Output: Urine 505 755 245 Other: Voiding Method Indwelling Catheter Indwelling Catheter Indwelling Catheter - Exam Physical Exam: Revealed a 76-year-old white male, in no distress, on room air.patient is cooperative, comfortable, in no distress. Head: Atraumatic, normocephalic. HEENT:[Neck is supple.] [No neck masses.] [No thyromegaly.] [No JVD.] Chest: [Symmetrical chest expansion, diminished breath sounds at the bases no rhonchi no wheezes Cardiac Exam:irregular rhythm., distant S1 and S2, no S3 gallop. Abdomen: [Soft, nontender, no megaly, no rebound, no guarding, normal bowel sounds.] Extremities: [No clubbing, trace of bipedal edema, no cyanosis.] Good pulses bilaterally. Neurological Exam: alert and oriented 3 no gross focal deficits. Psychiatric:normal mood, flat affect, normal mental status examination. Skin: No rashes. No rashes Musculoskeletal: No deformities and no limitation in range of motion - Labs CBC & Chem 7: 03/09/22 07:21 03/09/22 07:21 Labs: Abnormal Lab Results - Last 24 Hours (Table) 03/08/22 03/09/22 03/09/22 Range/Units 05:57 07:21 07:21 RBC 4.24 L (4.30-5.90) m/uL Hgb 11.4 L (13.0-17.5) gm/dL Hct 38.1 L (39.0-53.0) % MCHC 30.1 L (31.0-37.0) g/dL RDW 16.3 H (11.5-15.5) % Sodium 135 L (137-145) mmol/L Carbon Dioxide 33 H (22-30) mmol/L BUN 22 H (9-20) mg/dL Vitamin B12 >2000.0 H (200.0-944.0) pg/mL Assessment and Plan Assessment: Impression: Acute hypoxic respiratory failure secondary to acute on chronic systolic heart failure, ejection fraction of 40-45% Atrial flutter, rate controlled. Possible non-ST elevation myocardial infarction Acute on chronic kidney injury Hypotension, medications induced and suspect overdiuresis. off pressors, patient is on midodrine History of obstructive sleep apnea syndrome History of prostate cancer and previous prostatectomy Idiopathic neuropathy Acute metabolic encephalopathy, intermittent agitation and combativeness. Resolved. Recommendation:continue to monitor in ICU. Continue Haldol as needed Continue present medications as noted Continue to hold diuretics Continue Xarelto We will continue to follow while in the ICU. Time with Patient: Less than 30
[2022-03-09] MEDS: NOREPINEPHRINE 4 MG in SODIUM CHLORIDE 0.9% 250 ML IV SCH ×3 (12:42)
--- NOTE | 2022-03-09 13:37 | P.PN ---
Subjective Progress Note Date: 03/08/22 03/08/2022: Patient was seen for a follow-up. Patient's brother and patient's son were present today. Apparently he is not doing too well. Early this morning, patient got up, and with help set in the recliner. Suddenly patient became agitated, started ripping off the leads and wires. Patient was given Haldol and now patient is asleep. Per family, patient has been sleeping through the day. No other concerns. 03/07/2022: Patient was seen for a follow-up. Patient's son and brother were present today. Patient is sitting in the recliner. He is fully awake. Mentation is normal. Patient states that he worked with the therapist, and his balance was okay. Patient does have tremors at rest. Patient states that he was taking Abilify 40 mg daily. Recently it was decreased to 20 mg. Patient informed me that he has been diagnosed with idiopathic sensory neuropathy. Patient has seen numerous neurologists in the past and most recently [place]. [place] [facility] [place] Patient states that he has a brother, and multiple cousins also with diagnoses of sensory neuropathy. Objective - Vital Signs Vital signs: Vital Signs Temp 98.6 F 03/09/22 08:00 Pulse 100 03/09/22 13:00 Resp 28 H 03/09/22 13:00 BP 122/85 03/09/22 13:00 Pulse Ox 92 L 03/09/22 13:00 Intake & Output 03/08/22 03/09/22 03/09/22 18:59 06:59 18:59 Intake Total 322 660 Output Total 505 755 305 Balance -505 -433 355 Weight 154.2 kg Intake: Oral 322 660 Output: Urine 505 755 305 Other: Voiding Method Indwelling Catheter Indwelling Catheter Indwelling Catheter - Exam 03/08/2022: Patient asleep. Detail examination deferred. 03/07/2022: Patient's mental status, speech and language functions are normal. Cranial nerves are normal, visual rose are full. Face is symmetric. Muscle strength is completely normal in arms and legs distally and proximally. Patient has obvious resting tremor of the right hand. Occasional resting tremor also noted of the left. Patient's tone is increased very mildly on the right, whereas mildly on the left. Patient is noted to have decreased frequency of blinking. Appears bradykinetic. His balance is also affected. He has parkinsonian features. Sensations are equal. No ataxia for [id number] testing. Bulk of muscles normal. Gait deferred. Chest is clear. Abdomen soft nontender. Bowel sounds present. Patient has peripheral edema. - Labs CBC & Chem 7: 03/09/22 07:21 03/09/22 07:21 Labs: Abnormal Lab Results - Last 24 Hours (Table) 03/08/22 03/09/22 03/09/22 Range/Units 05:57 07:21 07:21 RBC 4.24 L (4.30-5.90) m/uL Hgb 11.4 L (13.0-17.5) gm/dL Hct 38.1 L (39.0-53.0) % MCHC 30.1 L (31.0-37.0) g/dL RDW 16.3 H (11.5-15.5) % Sodium 135 L (137-145) mmol/L Carbon Dioxide 33 H (22-30) mmol/L BUN 22 H (9-20) mg/dL Vitamin B12 >2000.0 H (200.0-944.0) pg/mL Assessment and Plan Assessment: * Toxic metabolic encephalopathy, now resolved. Reasons were as mentioned below. Patient had recurrence of some agitation earlier this morning, requiring use of Haldol. At present patient is asleep * Parkinsonian features, with tremors at rest, mildly increased tone, bradykinesia and balance disorder. 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 Abilify may be the possible cause. * Polypharmacy is probably the likely cause of altered mental status * Mild to moderate renal insufficiency probably resulted in decreased clearance of some of the psychotropic medications resulting in encephalopathy. Renal functions back to normal. * Patient has been on opiates for a long time. Patient may be in partial opiate withdrawal, as he calms down after receiving opiate. * Acute hypoxic respiratory failure secondary to acute on chronic systolic heart failure, with EF 40-45%. * Paroxysmal atrial fibrillation * Hypertensive emergency * Obstructive sleep apnea * History of prostate cancer and previous prostatectomy * History of idiopathic sensory peripheral neuropathy Plan: * Patient's encephalopathy originally had resolved. Patient had new onset agitation earlier this morning for which he has received Haldol. At present patient is asleep. We will follow. * Patient is showing signs of parkinsonian features. Suspect drug-induced from Abilify. He used to be on Abilify 40 mg in the past. Prior to arrival he was on 20 mg of Abilify. We have further decrease it down to 10 mg daily. If his parkinsonian features persist, then either Abilify can be distracted continued, or Cogentin could be added. Psychiatry already on board. * Patient's mentation has remarkably improved. He is now fully alert awake, oriented. Examination is nonfocal. * Continue with lower doses of Wellbutrin, Abilify and Lyrica. Patient was previously on Lyrica 150 mg 3 times a day, we will decrease the dose to 75 mg 3 times a day. Continue Lamictal. * CT head showed no acute process. Patient's limited neurological examination is relatively nonfocal. * 2-D echo revealed EF 40-45% with global hypokinesia. Mild right ventricle dilation. * Continue Xarelto for atrial fibrillation. * Patient's last hemoglobin A1c 5.9 on 11/14/2021. Last LDL 72.4 on 04/26/2021. * We will check B12, folate. * Neurologically clear at this time. May follow up with neurologist as outpatient.
[2022-03-09] MEDS: RIVAROXABAN 20 MG TAB PO SCH (16:05)
--- NOTE | 2022-03-09 23:51 | P.PN ---
Subjective Progress Note Date: 03/07/22 Patient is a 76-year-old male was admitted to hospital due to acute hypoxic respiratory failure secondary to acute on chronic systolic heart failure ejection fraction 40 to 45%. Patient does have multiple medical problems including chronic atrial fibrillation, hypertension, hyperlipidemia. Patient was requiring BiPAP and norepinephrine drip. Patient was agitated and requiring Haldol . Dose. 03/06/2022. Patient is currently in the MICU. Awake alert and oriented and mental status did improve. Patient is on norepinephrine was infiltrated into the left forearm . Otherwise a mcekon continues to be in atrial flutter. Sotalol was added as per cardiology recommendations. Otherwise denied any complaints of chest pain or shortness of breath. Still having significant leg swelling. No nausea vomiting or abdominal pain or diarrhea. Patient did not have a bowel movement last 2 days. Patient was also seen by psychiatric and medications were adjusted. Chest x-ray showed bilateral infiltrate and small left pleural effusion. Findings stable. Patient is being continued on Cardizem drip and on anticoagulation with Xarelto. Laboratory data showed WBC 7.9 hemoglobin 11.6 and platelets 231 sodium 131 potassium 4.1 chloride 96 bicarb is 28 BUN 28 creatinine 1.28 calcium 8.1. Pulmonary and cardiology is on board. 03/07/2022. Patient is in the MICU. Patient is awake alert and oriented. No issues with agitation overnight. Still requiring pressor support at low-dose. Currently being continued on IV hydration and diuretics on hold. Remains in atrial flutter. No complaints of chest pain. No shortness of breath. Still having bilateral leg swelling. Laboratory data showed WBC 8.3 hemoglobin 11.6 and platelets 298 Sodium 135 potassium 4.2 chloride 96 bicarb is 36 BUN 24 and creatinine 1.1 Patient is being continued midodrine due to low blood pressure. Continue with anticoagulation with Xarelto and also on metoprolol and sotalol as blood pressure tolerates. Cardiology and pulmonary is on board. Continue current medications reviewed. Objective - Vital Signs Vital signs: Vital Signs Temp 98.0 F 03/07/22 12:00 Pulse 86 03/07/22 15:45 Resp 23 03/07/22 15:45 BP 89/55 03/07/22 15:45 Pulse Ox 98 03/07/22 15:45 Intake & Output 03/06/22 03/07/22 03/07/22 18:59 06:59 18:59 Intake Total 973.067 0638.407 852.334 Output Total 730 690 330 Balance 4.844 471.407 522.334 Weight 138.3 kg 138.3 kg Intake: IV 630 975 600 .9 KVO 630 975 Sodium Chloride 0.9% 1, 600 000 ml @ 75 mls/hr IV . [id number] [facility] Rx#:[id number] Intake, IV Titration 104.844 186.407 30.334 Amount Norepinephrine 4 mg In 29.844 186.407 30.334 Sodium Chloride 0.9% 250 ml @ 0.05 MCG/KG/MIN 18. 383 mls/hr IV .[id number] [facility] Rx#:[id number] Sodium Chloride 0.9% 1, 75 000 ml @ 75 mls/hr IV . [id number] [facility] Rx#:[id number] Oral 222 Output: Urine 730 690 330 Other: Voiding Method Indwelling Catheter Indwelling Catheter Indwelling Catheter - Exam PHYSICAL EXAMINATION: Patient is lying in the bed comfortably, no acute distress, awake alert and oriented.. HEENT: Normocephalic. Neck is supple. Pupils reactive. Nostrils clear. Oral cavity is moist. Neck reveals no JVD, carotid bruits, or thyromegaly. CHEST EXAMINATION: Trachea is central. Symmetrical expansion. Bibasilar diminished sounds. Lung rose clear to auscultation and percussion. CARDIAC: Normal S1, S2 with no gallops. No murmurs. Irregularly irregular rhythm. ABDOMEN: Soft. Bowel sounds normal. No organomegaly. No abdominal bruits. Extremities. Patient does have bilateral 3+ pedal edema. No clubbing or cyanosis Neurologically awake, alert, oriented x3 with well-coordinated movements. No focal deficits noted Skin: No rash or skin lesions. Psychiatric: Coperative. Nonsuicidal Musculoskeletal: No joint swelling or deformity. Normal range of motion. - Labs CBC & Chem 7: 03/09/22 07:21 03/09/22 07:21 Labs: Abnormal Lab Results - Last 24 Hours (Table) 03/07/22 03/07/22 Range/Units 04:32 04:32 Hgb 11.6 L (13.0-17.5) gm/dL MCHC 29.4 L (31.0-37.0) g/dL RDW 16.1 H (11.5-15.5) % Sodium 135 L (137-145) mmol/L Chloride 96 L (98-107) mmol/L Carbon Dioxide 36 H (22-30) mmol/L BUN 24 H (9-20) mg/dL Glucose 110 H (74-99) mg/dL Assessment and Plan Assessment: Acute hypoxic respiratory failure secondary to CHF requiring BiPAP. off Bipap now. Acute on chronic CHF with systolic dysfunction ejection fraction 40 to 45% Chronic atrial fibrillation with RVR Elevated troponin level possible non-ST elevated CA Hypotension requiring pressor support possible medication induced and diuresis. Acute kidney injury likely prerenal. Possible ATN/. History of obstructive sleep apnea History of prostate cancer and prostatectomy Idiopathic bilateral peripheral neuropathy Acute metabolic encephalopathy with agitation and combativeness intermittently. DVT prophylaxis patient is already on full anticoagulation Plan: Patient is being continued on telemetry monitoring. Continue with Cardizem drip. Diuretics on hold due to acute kidney injury. Patient is on norepinephrine drip which is being titrated down. Continue with oxygen supplementation as needed. Heart rate is still elevated. Sotalol was added. Cardiology and pulmonary is on board. Continue to follow closely. Prognosis guarded. Time with Patient: Greater than 30
--- NOTE | 2022-03-09 23:55 | P.PN ---
Subjective Progress Note Date: 03/08/22 Patient is a 76-year-old male was admitted to hospital due to acute hypoxic respiratory failure secondary to acute on chronic systolic heart failure ejection fraction 40 to 45%. Patient does have multiple medical problems including chronic atrial fibrillation, hypertension, hyperlipidemia. Patient was requiring BiPAP and norepinephrine drip. Patient was agitated and requiring Haldol . Dose. 03/06/2022. Patient is currently in the MICU. Awake alert and oriented and mental status did improve. Patient is on norepinephrine was infiltrated into the left forearm . Otherwise a mckeon continues to be in atrial flutter. Sotalol was added as per cardiology recommendations. Otherwise denied any complaints of chest pain or shortness of breath. Still having significant leg swelling. No nausea vomiting or abdominal pain or diarrhea. Patient did not have a bowel movement last 2 days. Patient was also seen by psychiatric and medications were adjusted. Chest x-ray showed bilateral infiltrate and small left pleural effusion. Findings stable. Patient is being continued on Cardizem drip and on anticoagulation with Xarelto. Laboratory data showed WBC 7.9 hemoglobin 11.6 and platelets 231 sodium 131 potassium 4.1 chloride 96 bicarb is 28 BUN 28 creatinine 1.28 calcium 8.1. Pulmonary and cardiology is on board. 03/07/2022. Patient is in the MICU. Patient is awake alert and oriented. No issues with agitation overnight. Still requiring pressor support at low-dose. Currently being continued on IV hydration and diuretics on hold. Remains in atrial flutter. No complaints of chest pain. No shortness of breath. Still having bilateral leg swelling. Laboratory data showed WBC 8.3 hemoglobin 11.6 and platelets 298 Sodium 135 potassium 4.2 chloride 96 bicarb is 36 BUN 24 and creatinine 1.1 Patient is being continued midodrine due to low blood pressure. Continue with anticoagulation with Xarelto and also on metoprolol and sotalol as blood pressure tolerates. Cardiology and pulmonary is on board. 03/08/2022. Patient remains in the MICU. Was agitated this morning and requiring res traints. Patient was given IM Haldol. Otherwise patient was BiPAP last night. No complaints of chest pain. Gentle IV hydration with normal saline. Slim insulin atrial fibrillation. Continued on metoprolol and sotalol. On anticoagulation with Eliquis. Laboratory data showed WBC 6.9 hemoglobin 10.9 and platelets 242 Sodium 133 potassium 4.6 chloride 98 bicarb is 33 BUN 26 and creatinine 1.13 and calcium 8.1. Continue current medications reviewed. Objective - Vital Signs Vital signs: Vital Signs Temp 98.4 F 03/08/22 20:00 Pulse 87 03/08/22 22:02 Resp 19 03/08/22 22:02 BP 122/85 03/08/22 22:02 Pulse Ox 99 03/08/22 22:02 Intake & Output 03/08/22 03/08/22 03/09/22 06:59 18:59 06:59 Intake Total 1025 222 Output Total 410 505 175 Balance 615 -505 47 Weight 143.9 kg Intake: IV 975 Sodium Chloride 0.9% 1, 975 000 ml @ 75 mls/hr IV . [id number] [facility] Rx#:[id number] Oral 50 222 Output: Urine 410 505 175 Other: Voiding Method Indwelling Catheter Indwelling Catheter Indwelling Catheter - Exam PHYSICAL EXAMINATION: Patient is lying in the bed comfortably, no acute distress, awake alert and oriented.. HEENT: Normocephalic. Neck is supple. Pupils reactive. Nostrils clear. Oral c avity is moist. Neck reveals no JVD, carotid bruits, or thyromegaly. CHEST EXAMINATION: Trachea is central. Symmetrical expansion. Bibasilar diminished sounds. Lung rose clear to auscultation and percussion. CARDIAC: Normal S1, S2 with no gallops. No murmurs. Irregularly irregular rhythm. ABDOMEN: Soft. Bowel sounds normal. No organomegaly. No abdominal bruits. Extremities. Patient does have bilateral 3+ pedal edema. No clubbing or cyanosis Neurologically awake, alert, oriented x3 with well-coordinated movements. No focal deficits noted Skin: No rash or skin lesions. Psychiatric: Coperative. Nonsuicidal Musculoskeletal: No joint swelling or deformity. Normal range of motion. - Labs CBC & Chem 7: 03/09/22 07:21 03/09/22 07:21 Labs: Abnormal Lab Results - Last 24 Hours (Table) 03/08/22 03/08/22 03/08/22 Range/Units 05:57 05:57 05:57 RBC 4.03 L (4.30-5.90) m/uL Hgb 10.9 L (13.0-17.5) gm/dL Hct 36.8 L (39.0-53.0) % MCHC 29.6 L (31.0-37.0) g/dL RDW 15.9 H (11.5-15.5) % Sodium 133 L (137-145) mmol/L Carbon Dioxide 33 H (22-30) mmol/L BUN 26 H (9-20) mg/dL Calcium 8.1 L (8.4-10.2) mg/dL Vitamin B12 >2000.0 H (200.0-944.0) pg/mL Assessment and Plan Assessment: Acute hypoxic respiratory failure secondary to CHF requiring BiPAP. off Bipap now. Acute on chronic CHF with systolic dysfunction ejection fraction 40 to 45% Chronic atrial fibrillation with RVR Elevated troponin level possible non-ST elevated [place] Hypotension requiring pressor support possible medication induced and diuresis. Acute kidney injury likely prerenal. Possible ATN/. History of obstructive sleep apnea History of prostate cancer and prostatectomy Idiopathic bilateral peripheral neuropathy Acute metabolic encephalopathy with agitation and combativeness intermittently. DVT prophylaxis patient is already on full anticoagulation Plan: Patient is being continued on telemetry monitoring. Continue with Cardizem drip. Diuretics on hold due to acute kidney injury. Patient is on norepinephrine drip which is being titrated down. Continue with oxygen supplementation as needed. Heart rate is still elevated. Sotalol was added. Cardiology and pulmonary is on board. Continue to follow closely. Prognosis guarded. Time with Patient: Greater than 30
--- NOTE | 2022-03-09 23:59 | P.PN ---
Subjective Progress Note Date: 03/09/22 Patient is a 76-year-old male was admitted to hospital due to acute hypoxic respiratory failure secondary to acute on chronic systolic heart failure ejection fraction 40 to 45%. Patient does have multiple medical problems including chronic atrial fibrillation, hypertension, hyperlipidemia. Patient was requiring BiPAP and norepinephrine drip. Patient was agitated and requiring Haldol . Dose. 03/06/2022. Patient is currently in the MICU. Awake alert and oriented and mental status did improve. Patient is on norepinephrine was infiltrated into the left forearm . Otherwise a mckeon continues to be in atrial flutter. Sotalol was added as per cardiology recommendations. Otherwise denied any complaints of chest pain or shortness of breath. Still having significant leg swelling. No nausea vomiting or abdominal pain or diarrhea. Patient did not have a bowel movement last 2 days. Patient was also seen by psychiatric and medications were adjusted. Chest x-ray showed bilateral infiltrate and small left pleural effusion. Findings stable. Patient is being continued on Cardizem drip and on anticoagulation with Xarelto. Laboratory data showed WBC 7.9 hemoglobin 11.6 and platelets 231 sodium 131 potassium 4.1 chloride 96 bicarb is 28 BUN 28 creatinine 1.28 calcium 8.1. Pulmonary and cardiology is on board. 03/07/2022. Patient is in the MICU. Patient is awake alert and oriented. No issues with agitation overnight. Still requiring pressor support at low-dose. Currently being continued on IV hydration and diuretics on hold. Remains in atrial flutter. No complaints of chest pain. No shortness of breath. Still having bilateral leg swelling. Laboratory data showed WBC 8.3 hemoglobin 11.6 and platelets 298 Sodium 135 potassium 4.2 chloride 96 bicarb is 36 BUN 24 and creatinine 1.1 Patient is being continued midodrine due to low blood pressure. Continue with anticoagulation with Xarelto and also on metoprolol and sotalol as blood pressure tolerates. Cardiology and pulmonary is on board. 03/08/2022. Patient remains in the MICU. Was agitated this morning and requiring res traints. Patient was given IM Haldol. Otherwise patient was BiPAP last night. No complaints of chest pain. Gentle IV hydration with normal saline. Slim insulin atrial fibrillation. Continued on metoprolol and sotalol. On anticoagulation with Eliquis. Laboratory data showed WBC 6.9 hemoglobin 10.9 and platelets 242 Sodium 133 potassium 4.6 chloride 98 bicarb is 33 BUN 26 and creatinine 1.13 and calcium 8.1. 03/09/2022. Patient remains in the MICU. Appears to be more calm today. Off pressor support. Currently on room air. Requiring BiPAP intermittently. Otherwise patient remains in atrial fibrillation but heart rate is controlled. Patient is on metoprolol and sotalol. Anticoagulation with Xarelto. Also on midodrine. IV fluids on hold. No complaints of chest pain. No nausea vomiting abdominal pain or diarrhea. Tolerating oral diet. Laboratory test showed WBC 6.0 hemoglobin 11.4 and platelets 268 Sodium 135 potassium 4.2 chloride 98 bicarb 33 BUN 2020 creatinine 1.11 Continue current medications reviewed. Objective - Vital Signs Vital signs: Vital Signs Temp 97.9 F 03/09/22 20:00 Pulse 85 03/09/22 22:30 Resp 12 03/09/22 22:30 BP 90/66 03/09/22 22:30 Pulse Ox 98 03/09/22 22:30 Intake & Output 03/09/22 03/09/22 03/10/22 06:59 18:59 06:59 Intake Total 322 1260 Output Total 755 495 220 Balance -433 765 -220 Weight 154.2 kg Intake: Oral 322 1260 Output: Urine 755 495 220 Other: Voiding Method Indwelling Catheter Indwelling Catheter Indwelling Catheter # Bowel Movements 1 - Exam PHYSICAL EXAMINATION: Patient is lying in the bed comfortably, no acute distress, awake alert and oriented.. HEENT: Normocephalic. Neck is supple. Pupils reactive. Nostrils clear. Oral cavity is moist. Neck reveals no JVD, carotid bruits, or thyromegaly. CHEST EXAMINATION: Trachea is central. Symmetrical expansion. Bibasilar diminished sounds. Lung rose clear to auscultation and percussion. CARDIAC: Normal S1, S2 with no gallops. No murmurs. Irregularly irregular rhythm. ABDOMEN: Soft. Bowel sounds normal. No organomegaly. No abdominal bruits. Extremities. Patient does have bilateral 3+ pedal edema. No clubbing or cyanosis Neurologically awake, alert, oriented x3 with well-coordinated movements. No focal deficits noted Skin: No rash or skin lesions. Psychiatric: Coperative. Nonsuicidal Musculoskeletal: No joint swelling or deformity. Normal range of motion. - Labs CBC & Chem 7: 03/09/22 07:21 03/09/22 07:21 Labs: Abnormal Lab Results - Last 24 Hours (Table) 03/09/22 03/09/22 Range/Units 07:21 07:21 RBC 4.24 L (4.30-5.90) m/uL Hgb 11.4 L (13.0-17.5) gm/dL Hct 38.1 L (39.0-53.0) % MCHC 30.1 L (31.0-37.0) g/dL RDW 16.3 H (11.5-15.5) % Sodium 135 L (137-145) mmol/L Carbon Dioxide 33 H (22-30) mmol/L BUN 22 H (9-20) mg/dL Assessment and Plan Assessment: Acute hypoxic respiratory failure secondary to CHF requiring BiPAP intermittently Acute on chronic CHF with systolic dysfunction ejection fraction 40 to 45% Chronic atrial fibrillation with RVR Elevated troponin level possible non-ST elevated [place] Hypotension requiring pressor support possible medication induced and diuresis. Acute kidney injury likely prerenal. Possible ATN/. History of obstructive sleep apnea History of prostate cancer and prostatectomy Idiopathic bilateral peripheral neuropathy Acute metabolic encephalopathy with agitation and combativeness intermittently. DVT prophylaxis patient is already on full anticoagulation Plan: Patient is being continued on telemetry monitoring. requiring BiPAP intermitt ently; off Cardizem drip. Diuretics on hold due to acute kidney injury. Patient is on norepinephrine drip which is being titrated down. off now. Continue with oxygen supplementation as needed. Heart rate is still elevated. c/w Metoprolol. Sotalol was added. Cardiology and pulmonary is on board. Continue to follow closely. Prognosis guarded. Time with Patient: Greater than 30
[2022-03-10] MEDS: NOREPINEPHRINE 4 MG in SODIUM CHLORIDE 0.9% 250 ML IV SCH (03:45)
[2022-03-10] MEDS: HALOPERIDOL LACTATE 5 MG/ML 1 ML VIAL IVP PRN (04:28)
[2022-03-10] MEDS: FLUTICASONE 110 MCG INHALER INHALATION SCH ×2 (08:33→19:57)
[2022-03-10] MEDS: MIDODRINE 5 MG TAB PO SCH ×3 (08:38→16:46)
[2022-03-10] MEDS: DULoxetine HCL 60 MG CAPSULE.DR PO SCH (08:38)
[2022-03-10] MEDS: PREGABALIN 75 MG CAP PO SCH ×4 (08:38→21:13)
[2022-03-10] MEDS: ALPRAZolam 0.5 MG TAB PO SCH ×3 (08:38→21:13)
[2022-03-10] MEDS: LEVOTHYROXINE 25 MCG TAB PO SCH (08:38)
[2022-03-10] MEDS: ATORVASTATIN 20 MG TAB PO SCH (08:38)
[2022-03-10] MEDS: lamoTRIgine 100 MG TAB PO SCH ×2 (08:38→21:13)
[2022-03-10] MEDS: METOPROLOL TARTRATE 25 MG TAB PO SCH ×2 (08:39→21:13)
[2022-03-10] MEDS: ASPIRIN 81 MG PO SCH (08:39)
[2022-03-10] MEDS: SOTALOL 80 MG TAB PO SCH ×2 (08:39→21:42)
[2022-03-10] MEDS: ARIPiprazole 10 MG TAB PO SCH (08:39)
[2022-03-10] MEDS: OXYBUTYNIN 10 MG TAB.ER.24 PO SCH ×2 (08:40→21:42)
[2022-03-10] MEDS: buPROPion XL 150 MG TAB.ER.24H PO SCH (08:40)
--- NOTE | 2022-03-10 10:59 | XR ---
EXAMINATION TYPE: XR chest 1V portable DATE OF EXAM: 03/10/2022 CLINICAL HISTORY: Difficulty breathing rule out CHF. TECHNIQUE: Single AP portable upright view of the chest is obtained. COMPARISON: Chest x-ray from 4 days earlier FINDINGS: Persistent patchy lower lung opacities and mild cardiomegaly. Somewhat low lung volumes re demonstrated. No pleural effusions or pneumothorax seen. Overlying leads. Persistent dextroconvex sco liosis centered mid thoracic spine IMPRESSION: Low lung volumes and mild cardiomegaly with patchy bilateral lower lung acute infiltrates and/or atelectasis redemonstrated. No significant change from most recent x-ray.
--- NOTE | 2022-03-10 11:19 | PN ---
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 Rate is fairly well controlled, hemodynamically stable. He has nonischemic cardiomyopathy, atrial fibrillation. He is back on his anticoagulant medication. However, he was a little bit belligerent this morning and he is relaxed and comfortable now. I am recommending that we can move him to the telemetry unit to give him a different environment other than the ICU. He remains hemodynamically stable, doing well. Vitals are stable. No JVD. S1, S2 heard normally with irregular rate and rhythm, short systolic murmur. Lungs reveal fairly decent air entry. Abdomen is soft, nontender. Lower extremities reveal diminished pulses. Central nervous system: Grossly no focal deficits. Recommendation to continue current medical regimen and move him to telemetry. MMODL / IJN: [id number] /
--- NOTE | 2022-03-10 12:10 | P.PN ---
Subjective Progress Note Date: 03/10/22 Principal diagnosis: Acute hypoxic respiratory failure secondary to acute on chronic systolic heart failure, ejection fraction 40-45%. This is a 77-year-old white male with history of multiple medical problems including chronic atrial fibrillation, hypertension, dyslipidemia, patient was admitted to the hospital on 03/01 with 3 week history of shortness of breath, patient was in [place] recently, round out of his cardiac medications, and his presentation to the hospital was typical of acute congestive heart failure complaining of shortness of breath, orthopnea, increased swelling in the lower extremities, and when EMS arrived he was hypoxic and O2 saturation in the 70s. In the ER the patient was noted to be in atrial flutter with RVR. Patient was seen by cardiology on consultation, felt that the patient had acute on chronic heart failure, echocardiogram is pending, he was also noted to have narrow complex tachycardia, initially his blood pressure was extremely high over 200 systolic, he was also noted to have acute on chronic kidney injury, and possibly non-ST elevation myocardial infarction. At any rate patient was treated with diuretics, he was placed on Cardizem drip, however yesterday his condition deteriorated, and he was transferred to the ICU. Hence this consult was initiated. I saw the patient this morning, he is on 2 L nasal cannula, O2 sats is 96%, he required norepinephrine at 0.01 mcg/kg/m, patient has been diuresing significantly, and her blood pressure is marginal this morning, hence I recommended that we cut down the Lasix to 40 mg daily chest x-ray is showing improvement considering her blood pressure is marginal I held his Lasix this morning. Once his blood pressure improves, we can potentially discontinue his norepinephrine. Losartan was also placed on hold by cardiology for his low blood pressure. He is now on 2 L nasal cannula, O2 saturation is 94-96%. Remains a little tachycardic, heart rate is 112, blood pressure was in the 70s earlier, now it is 91/63. WBC count is 8.6 hemoglobin 11.8 electrolytes are normal his BUN is 34 creatinine is down from 2.94-2.51 this morning Reevaluated today on 03/05/2022, patient remains in the ICU, intermittently on BiPAP 12/6/50%, intermittently in atrial flutter rate 120, off norepinephrine this morning, patient has been requiring Haldol for extreme agitation as a matter of fact I walked in to see the patient today this morning, he was extremely agitated requiring restraints, then Haldol was given, and that seemed to calm him down. Last night the patient was obtunded and a CT of the brain was negative for bleed. Patient required BiPAP for slightly elevated pCO2. He was on BiPAP onto the early this morning. Chest x-ray showed small left pleural effusion, and left lower lobe atelectasis. No clear-cut evidence of pneumonia. His chest x-ray is significantly improved compared to admission chest x-ray showing evidence of CHF. Lasix was discontinued. IV fluids at KVO. Today I recommended a psychiatric and a urological consultation on this patient to address mental status, and address his psychiatric medications. Obviously the patient is intermittently agitated, and combative Reevaluated today on 03/06/2022, patient continues to steadily improve, however today patient required placement on norepinephrine at 0.01 mcg/kg/m, and the IV infiltrated in his left forearm area, and that being addressed as per protocol. Blood pressure remains marginal however the patient has decent urine output, he is on room air, and he is not in any distress. Patient continues to have atrial flutter with heart rate ranging between 90-100. Patient is eating and drinking well, overall there is improvement, there is also improvement in his renal status. Once the patient is off norepinephrine we can potentially transfer the patient back to the cardiac floor. Patient was seen by psychiatry, and his psych medications were adjusted accordingly. He seems to be much calm today, and definitely not agitated. Reevaluated today on 03/07/2022, patient is clinically better, however he is still requiring a small dose of norepinephrine at 0.02 mcg/kg/m. He is on IV fluid at 75 mL per hour. Patient is in atrial flutter. He was placed on midodrine at 10 mg 3 times a day for his low blood pressure. No major psychiatric issues over the last 2 days. Patient is very calm. And no further issues of restlessness and agitation. Labs today showed WBC count of 8.3 hemoglobin 11.6 platelets are normal electrolytes are normal bicarb is 36 BUN is 24 creatinine 1.1 improving. Patient was reevaluated today on 03/08/22, patient had another episode of extreme agitation today, required 4 point restraints, and he received Haldol to calm him down. When I saw the patient he seems to be called, and in no distress. Patient was on BiPAP last night, I recommended that he goes on BiPAP this morning since he is calm enough to tolerate BiPAP. His O2 saturation room air is 91%. Patient was placed on BiPAP 09/24/30%. He is in atrial fibrillation rate controlled 83/m. And apparently the patient responded well to Haldol. Recommended that psychiatry will see the patient again and adjust his medication. WBC count 6.9 hemoglobin is 10.9. Electrolytes and basic metabolic profile are relatively normal. reevaluated today on 03/09/22, patient remains in the ICU, he seems to be calm today, is not requiring any pressors, hemodynamically stable, intermittently has been on BiPAP, he seems to be more calm today, and he seems to be very appropriate. She is on room air, not requiring any oxygen, and he remains in atrial fibrillation, rate is well-controlled.CBC today is relatively normal electrolytes are normal renal profile is normal Reevaluated today on 03/10/22, patient remains in the ICU, continues to have intermittent episodes of agitations, requiring Haldol. This morning the patient seems to be calm, he did receive Haldol earlier this morning. Presently in no distress. Patient is very comfortable. He is on 2 L nasal cannula. Chest x- ray this morning showed mostly bibasilar atelectasis and cardiomegaly, low lung volumes. No evidence of congestive heart failure, no clear-cut evidence of pneumonia. WBC count is 6 hemoglobin 11.4 electrodes are normal renal profile is normal creatinine is 1.11 Objective - Vital Signs Vital signs: Vital Signs Temp 98.4 F 03/10/22 08:00 Pulse 81 03/10/22 11:30 Resp 14 03/10/22 11:30 BP 89/62 03/10/22 10:00 Pulse Ox 98 03/10/22 11:30 Intake & Output 03/09/22 03/10/22 03/10/22 18:59 06:59 18:59 Intake Total 1260 500 Output Total 495 565 280 Balance 765 -565 220 Weight 151 kg Intake: Oral 1260 500 Output: Urine 495 565 280 Other: Voiding Method Indwelling Catheter Indwelling Catheter Indwelling Catheter # Bowel Movements 1 - Exam Physical Exam: Revealed a 76-year-old white male, in no distress, on 2 L nasal cannula. Head: Atraumatic, normocephalic. HEENT:[Neck is supple.] [No neck masses.] [No thyromegaly.] [No JVD.] Chest: [Symmetrical chest expansion, diminished breath sounds at the bases no rhonchi no wheezes Cardiac Exam:irregular rhythm., distant S1 and S2, no S3 gallop. Abdomen: [Soft, nontender, no megaly, no rebound, no guarding, normal bowel sounds.] Extremities: [No clubbing, trace of bipedal edema, no cyanosis.] Good pulses bilaterally. Neurological Exam: alert and oriented 3 no gross focal deficits. Psychiatric:normal mood, flat affect, normal mental status examination. Skin: No rashes. No rashes Musculoskeletal: No deformities and no limitation in range of motion - Labs CBC & Chem 7: 03/09/22 07:21 03/09/22 07:21 Assessment and Plan Assessment: Impression: Acute hypoxic respiratory failure secondary to acute on chronic systolic heart failure, ejection fraction of 40-45% Atrial flutter, rate controlled. Patient is back on Xarelto. Possible non-ST elevation myocardial infarction Acute on chronic kidney injury Hypotension, medications induced and suspect overdiuresis. off pressors, patient is on midodrine History of obstructive sleep apnea syndrome History of prostate cancer and previous prostatectomy Idiopathic neuropathy Acute metabolic encephalopathy, intermittent agitation and combativeness. Recommendation: We'll clear the patient to be transferred to medical floor/cardiac floor with telemetry. Continue Haldol as needed Continue present medications as noted Continue to hold diuretics Continue Xarelto We'll clear the patient for transfer out of the ICU today. We'll continue to follow patient will eventually need placement as it will be extremely difficult for the patient to manage on his own will likely need to be placed in ECF Time with Patient: Less than 30
[2022-03-10] MEDS: buPROPion XL 300 MG TAB.ER.24H PO SCH (15:25)
[2022-03-10] MEDS: FUROSEMIDE 10 MG/ML 4 ML VIAL IV SCH (15:26)
[2022-03-10] MEDS: RIVAROXABAN 20 MG TAB PO SCH (16:47)
--- NOTE | 2022-03-11 01:16 | P.PN ---
Subjective Progress Note Date: 03/10/22 Patient is a 76-year-old male was admitted to hospital due to acute hypoxic respiratory failure secondary to acute on chronic systolic heart failure ejection fraction 40 to 45%. Patient does have multiple medical problems including chronic atrial fibrillation, hypertension, hyperlipidemia. Patient was requiring BiPAP and norepinephrine drip. Patient was agitated and requiring Haldol . Dose. 03/06/2022. Patient is currently in the MICU. Awake alert and oriented and mental status did improve. Patient is on norepinephrine was infiltrated into the left forearm . Otherwise a mckeon continues to be in atrial flutter. Sotalol was added as per cardiology recommendations. Otherwise denied any complaints of chest pain or shortness of breath. Still having significant leg swelling. No nausea vomiting or abdominal pain or diarrhea. Patient did not have a bowel movement last 2 days. Patient was also seen by psychiatric and medications were adjusted. Chest x-ray showed bilateral infiltrate and small left pleural effusion. Findings stable. Patient is being continued on Cardizem drip and on anticoagulation with Xarelto. Laboratory data showed WBC 7.9 hemoglobin 11.6 and platelets 231 sodium 131 potassium 4.1 chloride 96 bicarb is 28 BUN 28 creatinine 1.28 calcium 8.1. Pulmonary and cardiology is on board. 03/07/2022. Patient is in the MICU. Patient is awake alert and oriented. No issues with agitation overnight. Still requiring pressor support at low-dose. Currently being continued on IV hydration and diuretics on hold. Remains in atrial flutter. No complaints of chest pain. No shortness of breath. Still having bilateral leg swelling. Laboratory data showed WBC 8.3 hemoglobin 11.6 and platelets 298 Sodium 135 potassium 4.2 chloride 96 bicarb is 36 BUN 24 and creatinine 1.1 Patient is being continued midodrine due to low blood pressure. Continue with anticoagulation with Xarelto and also on metoprolol and sotalol as blood pressure tolerates. Cardiology and pulmonary is on board. 03/08/2022. Patient remains in the MICU. Was agitated this morning and requiring res traints. Patient was given IM Haldol. Otherwise patient was BiPAP last night. No complaints of chest pain. Gentle IV hydration with normal saline. Slim insulin atrial fibrillation. Continued on metoprolol and sotalol. On anticoagulation with Eliquis. Laboratory data showed WBC 6.9 hemoglobin 10.9 and platelets 242 Sodium 133 potassium 4.6 chloride 98 bicarb is 33 BUN 26 and creatinine 1.13 and calcium 8.1. 03/09/2022. Patient remains in the MICU. Appears to be more calm today. Off pressor support. Currently on room air. Requiring BiPAP intermittently. Otherwise patient remains in atrial fibrillation but heart rate is controlled. Patient is on metoprolol and sotalol. Anticoagulation with Xarelto. Also on midodrine. IV fluids on hold. No complaints of chest pain. No nausea vomiting abdominal pain or diarrhea. Tolerating oral diet. Laboratory test showed WBC 6.0 hemoglobin 11.4 and platelets 268 Sodium 135 potassium 4.2 chloride 98 bicarb 33 BUN 2020 creatinine 1.11 03/10/2022 Patient is currently resting in the bed. Awake alert but lethargic and drowsy. Patient was agitated and was requiring Haldol last night and this morning. Otherwise patient is more calm now. Patient is being continued on oxygen at 2 L via nasal cannula. Chest x-ray showed mildly bibasilar atelectasis and cardiomegaly. Patient is off pressor support. No complaints of chest pain. Leg swelling is improving. No nausea vomiting abdominal pain or diarrhea. Patient is being continued on metoprolol and sotalol. On anticoagulation with Xarelto. Patient is also on midodrine. Pulmonary and cardiology is on board. Patient is being transferred to medical floor today. Continue current medications reviewed. Objective - Vital Signs Vital signs: Vital Signs Temp 98 F 03/10/22 20:00 Pulse 81 03/10/22 20:00 Resp 16 03/10/22 20:00 BP 95/64 03/10/22 20:00 Pulse Ox 97 03/10/22 20:00 Intake & Output 03/10/22 03/10/22 03/11/22 06:59 18:59 06:59 Intake Total 980 Output Total 565 1135 Balance -565 -155 Weight 151 kg Intake: Oral 980 Output: Urine 565 1135 Other: Voiding Method Indwelling Catheter Indwelling Catheter Indwelling Catheter # Bowel Movements 1 1 - Exam PHYSICAL EXAMINATION: Patient is lying in the bed comfortably, no acute distress, awake alert and oriented.. HEENT: Normocephalic. Neck is supple. Pupils reactive. Nostrils clear. Oral cavity is moist. Neck reveals no JVD, carotid bruits, or thyromegaly. CHEST EXAMINATION: Trachea is central. Symmetrical expansion. Bibasilar diminished sounds. Lung rose clear to auscultation and percussion. CARDIAC: Normal S1, S2 with no gallops. No murmurs. Irregularly irregular rhythm. ABDOMEN: Soft. Bowel sounds normal. No organomegaly. No abdominal bruits. Extremities. Patient does have bilateral 3+ pedal edema. No clubbing or cyanosis Neurologically awake, alert, oriented x3 with well-coordinated movements. No focal deficits noted Skin: No rash or skin lesions. Psychiatric: Coperative. Nonsuicidal Musculoskeletal: No joint swelling or deformity. Normal range of motion. - Labs CBC & Chem 7: 03/09/22 07:21 03/09/22 07:21 Assessment and Plan Assessment: Acute hypoxic respiratory failure secondary to CHF requiring BiPAP intermittently. currently on NC 2L Acute on chronic CHF with systolic dysfunction ejection fraction 40 to 45% Chronic atrial fibrillation with RVR Elevated troponin level possible non-ST elevated MT Hypotension requiring pressor support possible medication induced and diuresis. Acute kidney injury likely prerenal. Possible ATN/. History of obstructive sleep apnea History of prostate cancer and prostatectomy Idiopathic bilateral peripheral neuropathy Acute metabolic encephalopathy with agitation and combativeness intermittently. DVT prophylaxis patient is already on full anticoagulation Plan: Patient is being continued on telemetry monitoring. requiring BiPAP intermittently; off Cardizem drip. Diuretics on hold due to acute kidney injury. Patient is on norepinephrine drip which is being titrated down. off now. Continue with oxygen supplementation as needed. c/w Metoprolol. Sotalol was added. c/w midodrin. Cardiology and pulmonary is on board. Continue to follow closely. Prognosis guarded. Time with Patient: Greater than 30
[2022-03-11] MEDS: LEVOTHYROXINE 25 MCG TAB PO SCH (06:44)
[2022-03-11] MEDS: MIDODRINE 5 MG TAB PO SCH ×3 (06:44→17:46)
[2022-03-11] MEDS: FLUTICASONE 110 MCG INHALER INHALATION SCH ×2 (07:59→20:21)
[2022-03-11 08:21] LABS: Basophils # (A) 0.1 k/uL (0-0.2); Basophils % (A) 1 %; Eosinophils # (A) 0.5 k/uL (0-0.7); Eosinophils % (A) 7 %; HCT 36.9 % (39.0-53.0); HGB 11.1 gm/dL (13.0-17.5); Hypochromasia Moderate; Lymphocytes # (A) 1.4 k/uL (1.0-4.8); Lymphocytes % (A) 22 %; MCH 27.1 pg (25.0-35.0); MCV 90.5 fL (80.0-100.0); Mean Platelet Volume 8.2; Monocytes # (A) 0.5 k/uL (0-1.0); Monocytes % (A) 7 %; Neutrophils # (A) 4.1 k/uL (1.3-7.7); Neutrophils % (A) 61 %; Platelet Count 286 k/uL (150-450); RBC 4.07 m/uL (4.30-5.90); RDW 15.9 % (11.5-15.5); WBC 6.7 k/uL (3.8-10.6)
[2022-03-11 08:37] LABS: Calcium 8.7 mg/dL (8.4-10.2)
--- NOTE | 2022-03-11 08:54 | P.PN ---
Subjective Progress Note Date: 03/10/22 03/10/2022: Patient was seen for a follow-up. Patient is sitting in the chair, in no distress. Patient's brother was also present today. Patient continues to have tremors at rest. Patient tells me that he has seen 3 different neurologists in the past, one at [facility], in [place] and in [facility]. None of them diagnosed him with Parkinson's disease. Patient further told me that the reason for agitation on 03/08/2022 was because he was sitting in the chair and he was told to use a mask and he became upset. 03/08/2022: Patient was seen for a follow-up. Patient's brother and patient's son were present today. Apparently he is not doing too well. Early this morning, patient got up, and with help set in the recliner. Suddenly patient became agitated, started ripping off the leads and wires. Patient was given Haldol and now patient is asleep. Per family, patient has been sleeping through the day. No other concerns. 03/07/2022: Patient was seen for a follow-up. Patient's son and brother were present today. Patient is sitting in the recliner. He is fully awake. Mentation is normal. Patient states that he worked with the therapist, and his balance was okay. Patient does have tremors at rest. Patient states that he was taking Abilify 40 mg daily. Recently it was decreased to 20 mg. Patient informed me that he has been diagnosed with idiopathic sensory neuropath y. Patient has seen numerous neurologists in the past and most recently Dr. Phillips at [facility]. Patient states that he has a brother, and multiple cousins also with diagnoses of sensory neuropathy. Objective - Vital Signs Vital signs: Vital Signs Temp 98.4 F 03/10/22 08:00 Pulse 75 03/10/22 14:00 Resp 12 03/10/22 14:00 BP 102/60 03/10/22 14:00 Pulse Ox 98 03/10/22 14:00 Intake & Output 03/09/22 03/10/22 03/10/22 18:59 06:59 18:59 Intake Total 1260 500 Output Total 495 565 435 Balance 765 -565 65 Weight 151 kg Intake: Oral 1260 500 Output: Urine 495 565 435 Other: Voiding Method Indwelling Catheter Indwelling Catheter Indwelling Catheter # Bowel Movements 1 - Exam 03/10/2022:. Patient is sitting comfortably in the chair. Speech and language functions are normal. Patient continues to have decreased frequency of blinking. Appears slightly bradykinetic. Tone is increased mildly. Patient has tremors at rest of the right hand. It is mainly wrist extension flexion movement. Patient tells me that his tremors are not parkinsonian, as parkinsonian tremors are pill-rolling tremors. 03/08/2022: Patient asleep. Detail examination deferred. 03/07/2022: Patient's mental status, speech and language functions are normal. Cranial nerves are normal, visual rose are full. Face is symmetric. Muscle strength is completely normal in arms and legs distally and proximally. Patient has obvious resting tremor of the right hand. Occasional resting tremor also noted of the left. Patient's tone is increased very mildly on the right, whereas mildly on the left. Patient is noted to have decreased frequency of blinking. Appears bradykinetic. His balance is also affected. He has parkinsonian features. Sensations are equal. No ataxia for [id number] testing. Bulk of muscles normal. Gait deferred. Chest is clear. Abdomen soft nontender. Bowel sounds present. Patient has peripheral edema. - Labs CBC & Chem 7: 03/11/22 07:28 03/11/22 07:37 Assessment and Plan Assessment: * Toxic metabolic encephalopathy, now resolved. Reasons were as mentioned below. * Parkinsonian features, with tremors at rest, mildly increased tone, bradykinesia and balance disorder. 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 Abilify may be the possible cause. * Polypharmacy is probably the likely cause of altered mental status * Mild to moderate renal insufficiency probably resulted in decreased clearance of some of the psychotropic medications resulting in encephalopathy. Renal functions back to normal. * Patient has been on opiates for a long time. Patient may be in partial opiate withdrawal, as he calms down after receiving opiate. * Acute hypoxic respiratory failure secondary to acute on chronic systolic heart failure, with EF 40-45%. * Paroxysmal atrial fibrillation * Hypertensive emergency * Obstructive sleep apnea * History of prostate cancer and previous prostatectomy * History of idiopathic sensory peripheral neuropathy Plan: * Patient's encephalopathy has resolved. * Patient is showing signs of parkinsonian features. Suspect drug-induced from Abilify. He used to be on Abilify 40 mg in the past. Prior to arrival he was on 20 mg of Abilify. We have further decrease it down to 10 mg daily. If his parkinsonian features persist, then either Abilify can be distracted continued, or Cogentin could be added. Psychiatry already on board. Patient tells me that he has already seen 3 different neurologist and was told that he does not have Parkinson's disease. Patient was recommended to follow up with his neurologist as outpatient, if the tremors continue to be an issue. * Patient's mentation has remarkably improved. He is now fully alert awake, oriented. Examination is nonfocal. * Continue with lower doses of Wellbutrin, Abilify and Lyrica. Patient was previously on Lyrica 150 mg 3 times a day, we will decrease the dose to 75 mg 3 times a day. Continue Lamictal. * CT head showed no acute process. Patient's limited neurological examination is relatively nonfocal. * 2-D echo revealed EF 40-45% with global hypokinesia. Mild right ventricle dilation. * Continue Xarelto for atrial fibrillation. * Patient's last hemoglobin A1c 5.9 on 11/14/2021. Last LDL 72.4 on 04/26/2021. * B12 >2000, folate 8.9. We will start folate replacement. * Neurologically clear at this time. May follow up with neurologist as outpatient. We will sign off. Please reconsult neurology service if any questions.
[2022-03-11] MEDS: DULoxetine HCL 60 MG CAPSULE.DR PO SCH (09:05)
[2022-03-11] MEDS: PREGABALIN 75 MG CAP PO SCH ×3 (09:05→21:10)
[2022-03-11] MEDS: buPROPion XL 150 MG TAB.ER.24H PO SCH (09:05)
[2022-03-11] MEDS: ARIPiprazole 10 MG TAB PO SCH (09:05)
[2022-03-11] MEDS: OXYBUTYNIN 10 MG TAB.ER.24 PO SCH ×2 (09:05→21:21)
[2022-03-11] MEDS: METOPROLOL TARTRATE 25 MG TAB PO SCH ×2 (09:06→21:10)
[2022-03-11] MEDS: ATORVASTATIN 20 MG TAB PO SCH (09:06)
[2022-03-11] MEDS: lamoTRIgine 100 MG TAB PO SCH ×2 (09:06→21:10)
[2022-03-11] MEDS: ASPIRIN 81 MG PO SCH (09:06)
[2022-03-11] MEDS: FOLIC ACID 1 MG TAB PO SCH (09:06)
[2022-03-11] MEDS: SOTALOL 80 MG TAB PO SCH ×2 (09:06→21:21)
[2022-03-11] MEDS: ALPRAZolam 0.5 MG TAB PO SCH ×3 (09:06→21:10)
--- NOTE | 2022-03-11 11:24 | P.PN ---
Subjective Progress Note Date: 03/11/22 On 03/11/2022 patient seen in follow-up on selective care unit, patient was transferred out of intensive care unit yesterday on 03/10/2022, his had no acute events overnight, currently on room air, pulse ox is 94%. Required BiPAP support last night, breathing comfortably, awake and alert, oriented 3, re sponding appropriately. Remains in A. fib flutter, with a controlled rate. No complaints of cough, no chest discomfort, no worsening dyspnea. Is on Zarontin for anticoagulation for history of atrial fibrillation. Chest x-ray from yesterday showing low lung volumes and mild cardiomegaly with patchy bilateral lower lung infiltrates and atelectasis. No significant change from most recent chest x-ray. He is in -355 mL no fluid balance, Rolon catheter is in place. He's had no nausea vomiting or diarrhea, he is tolerating oral intake. Patient had been up out of bed with assistance the day before yesterday, he is being followed by physical therapy. he fatigues easily with exertion, but tolerates activity fairly well. Has significant lower extremity edema. Could benefit from continued oral diuretics. His labs have been reviewed, white blood cell, 6.7, hemoglobin is 11.1, sodium is 134, and the rest of electrolytes were within normal limits, B1 is 27 creatinine is 1.21 Objective - Vital Signs Vital signs: Vital Signs Temp 97.8 F 03/11/22 08:00 Pulse 92 03/11/22 08:00 Resp 18 03/11/22 08:00 BP 100/65 03/11/22 08:00 Pulse Ox 94 L 03/11/22 08:00 FiO2 30 03/10/22 03:25 Intake & Output 03/10/22 03/11/22 03/11/22 18:59 06:59 18:59 Intake Total 980 240 Output Total 1135 200 250 Balance -155 -200 -10 Intake: Oral 980 240 Output: Urine 1135 200 250 Uretheral (Rolon) 200 Other: Voiding Method Indwelling Catheter Indwelling Catheter # Bowel Movements 1 - Exam GENERAL EXAM: Alert, pleasant, 76-year-old white male male with a pulse ox of 94% comfortable in no apparent distress. HEAD: Normocephalic/atraumatic. EYES: Normal reaction of pupils, equal size. Conjunctiva pink, sclera white. NOSE: Clear with pink turbinates. THROAT: No erythema or exudates. NECK: No masses, no JVD, no thyroid enlargement, no adenopathy. CHEST: No chest wall deformity. Symmetrical expansion. LUNGS: Equal air entry with no crackles, wheeze, rhonchi or dullness. CVS: Irregular rate and rhythm, normal S1 and S2, no gallops, no murmurs, no rubs ABDOMEN: Soft, nontender. No hepatosplenomegaly, normal bowel sounds, no guarding or rigidity. EXTREMITIES: No clubbing, +2nd tone normal. SPINE: No scoliosis or deformity SKIN: No rashes CENTRAL NERVOUS SYSTEM: Alert and oriented -3. No focal deficits, tone is no rmal in all 4 extremities. PSYCHIATRIC: Alert and oriented -3. Appropriate affect. Intact judgment and insight. - Labs CBC & Chem 7: 03/11/22 07:28 03/11/22 07:37 Labs: Abnormal Lab Results - Last 24 Hours (Table) 03/11/22 03/11/22 Range/Units 07:28 07:37 RBC 4.07 L (4.30-5.90) m/uL Hgb 11.1 L (13.0-17.5) gm/dL Hct 36.9 L (39.0-53.0) % MCHC 30.0 L (31.0-37.0) g/dL RDW 15.9 H (11.5-15.5) % Sodium 134 L (137-145) mmol/L BUN 27 H (9-20) mg/dL Glucose 106 H (74-99) mg/dL Assessment and Plan Plan: Assessment: #1. Acute hypoxic respiratory failure secondary to acute on chronic systolic heart failure, ejection fraction of 40-45% #2. Atrial flutter, rate controlled. Patient is back on Xarelto. #3. Possible non-ST elevation myocardial infarction #4. Acute on chronic kidney injury, improved #5. Hypotension, medications induced and suspect overdiuresis. off pressors, patient is on midodrine, improved #6. History of obstructive sleep apnea syndrome #7. History of prostate cancer and previous prostatectomy #8. Idiopathic neuropathy #9. Acute metabolic encephalopathy, intermittent agitation and combativeness, resolved And: We'll add Lasix 20 mg twice daily Patient still has significant amount of lower extremity edema Patient is breathing comfortably, O2 saturations are improved and patient is on room air Vital signs are stable Follow-up blood work including electrolytes and renal profile tomorrow Accurate intake and output BiPAP support is needed Social work consultation for possible subacute rehab after discharge Physical therapy evaluation Continue to follow I have personally seen and examined the patient, performed the documentation and the assessment and plan as written. Number of minutes spent on the visit: [10] I have personally seen and examined the patient and reviewed the documentation. I performed a joint evaluation with the nurse practitioner in this evaluation was done more than 20 minutes. I fully agree with the documentation above and the plan of care.the patient will be given Lasix 20 mg twice a day. The patient is breathing comfortably now. No active issues otherwise for now. BiPAP support as needed. Monitor oxygenation. Monitor fluid balance and electrolytes. We'll continue to follow.
--- NOTE | 2022-03-11 12:46 | P.PN ---
Subjective Progress Note Date: 03/11/22 HISTORY OF PRESENTING ILLNESS Patient is a pleasant 77-year-old male with history of hypertension, hyperli pidemia, obesity, atrial fibrillation who presents secondary to worsening dyspnea over the last 3-4 weeks. He states he normally follows with Dr. Kraft from [facility]. He was scheduled to get an echo done however had a last minute trip to [place] and therefore went to [place] instead. He admits he was running out of his medications and thought he could get some of the medications in [place]. Therefore he has been out of number of his medications including his blood pressure meds as well as sotalol. Since coming back he has had progressive dyspnea with 6 pillow orthopnea and increased lower extremity edema and therefore eventually had respiratory distress and EMS was called and patient found to be hypoxic in the 70s. Initial EKG read out as sinus rhythm, sinus tachycardia 130 bpm however has persistently been tachycardic at 1:30 without any variation. Appears concerning for atrial flutter with RVR. He was having significant chest pain and pressure yesterday when he was in respiratory distress however currently improved. He states he had a heart catheterization 5 years ago secondary to abnormal stress test and was told that his coronary arteries are "wide open". Initial lactic acid 4.3, total bilirubin 1.7, troponin 0.16, 0.2, proBNP 18,900, TSH 5.1, creatinine 1.37 with baseline appearing to be 1.0 from December, white blood cell count 10.1. Initial blood pressure was in the 200s over 130 range however restarted on prior medications and better controlled. He states he is feeling somewhat better currently however still continued dyspnea and lower extremity edema. Denies any further chest pain. 03/03 Patient seen and examined. Patient denies any chest pain or pressure. He was started on Cardizem drip yesterday secondary to atrial flutter with RVR however became hypotensive. He did have good urine output with approximately -4 L more or less 24 hours. He has had however increased creatinine from 1.4 up to 2.9. A team was called this morning with another hypotensive episode. Heart rates continue to be in the low 100s to 130s. Remains in atrial flutter with variable conduction. Lactic acid has been normal. He has been somewhat more confused recently. He was feeling lightheaded previously during the hypotensive episode and had some chest discomfort. 03/04 Patient seen and examined. Patient transferred to ICU briefly placed on the Levophed and given additional IV fluid bolus yesterday with some improvement in blood pressure. Still has been borderline blood pressures and briefly off of norepinephrine however currently back on 0.01. Denies any chest pain or pressure. Admits to some lower abdominal mild pain. Denies any shortness breath. Still appears mildly confused. Creatinine somewhat improved 2.9-2.5. Lasix was decreased to once a day. 03/05 Patient seen and examined. Denies any chest pain or pressure. He was more confused overnight requiring temporary restraints. Neurology consulted with recommendations of changing psychiatric medications. Cr improved today. Off and on low dose vasopressors. Procalcitonin mildly elevated. Echo performed with EF 40-45% with small pericardial effusion however no mention of any tamponade physiology. Off and on Aflutter with RVR HR's 90-120's 03/06 Patient seen and examined. Patient states overall he is feeling better. He was having confusion and aggression yesterday requiring some held all however this has improved over last 24 hours. Telemetry reveals continued atrial flutter with heart rates 90s to low 100s. Creatinine again improved to 1.2 today. 03/07 Patient seen and examined. Patient continues be more alert and denies any issues. Still on low-dose of norepinephrine and patient was started on Midrin yesterday. Cr improved to 1.1. Patient was placed on IV fluids. 03/08 Patient seen and examined. Patient had increased episode of agitation requiring Haldol yesterday. He has been on the sotalol however no prolongation his QT noted this morning. He remains confused and aggressive this morning. Blood pressures have remained or line and he has been off of the norepinephrine since yesterday. Remains in atrial flutter with relatively controlled rates. 03/11/2022 Patient examined this morning at the bedside. His been moved out of the ICU to the telemetry unit. Patient denies chest pain or pressure. Denies SOB. Telemetry reveals atrial flutter with heart rate in the 70s. Vital signs are stable. He is on room air with oxygen saturations greater than 92%. He is anticoagulated with Xarelto PHYSICAL EXAMINATION Vital signs reviewed. CONSTITUTIONAL: No apparent distress HEENT: Head is normocephalic. Pupils are equal, round. Sclerae anicteric. Mucous membranes of the mouth are moist. No JVD. No carotid bruit. CHEST EXAMINATION: Diminished at bases, No chest wall tenderness is noted on palpation or with deep breathing. HEART EXAMINATION: Irregular rhythm. S1, S2 heard. No murmurs, gallops or rub. EXTREMITIES: 2+ peripheral pulses, 1+ lower extremity edema and no calf tenderness. ASSESSMENT 1. Acute on chronic heart failure, systolic 2. Atrial flutter with RVR 3. Initial hypertensive emergency with blood pressure 200s over 130s improved, now hypotensive may be medication effect 4. Acute on chronic kidney injury 5. Medical noncompliance, patient recently ran out of numerous medications 6. Paroxysmal atrial fibrillation 7. Non-STEMI, likely type II mechanism related to hypoxia, hypertension, heart failure. Reported normal heart catheterization previously 8. Hypotension, rule out sepsis versus cardiogenic shock versus medication effect line 9. Lower extremity edema suspect component of chronic venous insufficiency 9. Small localized pericardial effusion, no tamponade PLAN Continue current cardiac medications Continue anticoagulation with Xarelto Continue telemetry monitoring Further recommendations pending patient course Nurse practitioner note has been reviewed by physician. Signing provider agrees with the documented findings, assessment, and plan of care. Objective - Vital Signs Vital signs: Vital Signs Temp 97.8 F 03/11/22 08:00 Pulse 92 03/11/22 08:00 Resp 18 03/11/22 08:00 BP 100/65 03/11/22 08:00 Pulse Ox 94 L 03/11/22 08:00 FiO2 30 03/10/22 03:25 Intake & Output 03/10/22 03/11/22 03/11/22 18:59 06:59 18:59 Intake Total 980 240 Output Total 1135 200 250 Balance -155 -200 -10 Intake: Oral 980 240 Output: Urine 1135 200 250 Uretheral (Rolon) 200 Other: Voiding Method Indwelling Catheter Indwelling Catheter # Bowel Movements 1 - Labs CBC & Chem 7: 03/11/22 07:28 03/11/22 07:37 Labs: Abnormal Lab Results - Last 24 Hours (Table) 03/11/22 03/11/22 Range/Units 07:28 07:37 RBC 4.07 L (4.30-5.90) m/uL Hgb 11.1 L (13.0-17.5) gm/dL Hct 36.9 L (39.0-53.0) % MCHC 30.0 L (31.0-37.0) g/dL RDW 15.9 H (11.5-15.5) % Sodium 134 L (137-145) mmol/L BUN 27 H (9-20) mg/dL Glucose 106 H (74-99) mg/dL
[2022-03-11] MEDS: RIVAROXABAN 20 MG TAB PO SCH (17:45)
[2022-03-11] MEDS: FUROSEMIDE 20 MG TAB PO SCH (17:45)
[2022-03-12] MEDS: MIDODRINE 5 MG TAB PO SCH ×3 (06:21→17:19)
[2022-03-12] MEDS: LEVOTHYROXINE 25 MCG TAB PO SCH (06:21)
[2022-03-12] MEDS: FLUTICASONE 110 MCG INHALER INHALATION SCH ×2 (08:05→20:43)
[2022-03-12] MEDS: ATORVASTATIN 20 MG TAB PO SCH (09:04)
[2022-03-12] MEDS: FOLIC ACID 1 MG TAB PO SCH (09:04)
[2022-03-12] MEDS: PREGABALIN 75 MG CAP PO SCH ×3 (09:04→21:18)
[2022-03-12] MEDS: ALPRAZolam 0.5 MG TAB PO SCH ×3 (09:04→21:19)
[2022-03-12] MEDS: lamoTRIgine 100 MG TAB PO SCH ×2 (09:05→21:19)
[2022-03-12] MEDS: ASPIRIN 81 MG PO SCH (09:05)
[2022-03-12] MEDS: METOPROLOL TARTRATE 25 MG TAB PO SCH ×2 (09:05→21:19)
[2022-03-12] MEDS: DULoxetine HCL 60 MG CAPSULE.DR PO SCH (09:06)
[2022-03-12] MEDS: FUROSEMIDE 20 MG TAB PO SCH ×2 (09:06→17:19)
[2022-03-12] MEDS: SOTALOL 80 MG TAB PO SCH ×2 (09:07→21:19)
[2022-03-12] MEDS: buPROPion XL 150 MG TAB.ER.24H PO SCH (09:07)
[2022-03-12] MEDS: ARIPiprazole 10 MG TAB PO SCH (09:07)
[2022-03-12] MEDS: OXYBUTYNIN 10 MG TAB.ER.24 PO SCH ×2 (09:07→21:19)
[2022-03-12 11:38] LABS: Calcium 8.2 mg/dL (8.4-10.2); Potassium 4.5 mmol/L (3.5-5.1)
--- NOTE | 2022-03-12 11:56 | CDI ---
Documentation Clarification Form Date: 03/12/2022 11:40:59 AM From: Fransisca Anne CCS, CCDS Admit Date: 03/01/2022 02:30:00 PM Patient Name: Carlos Manuel Bustos Visit Number: [id number] Discharge Date: ATTENTION: The Clinical Documentation Specialists (CDI) and [facility] Coding Staff appreciate your assistance in clarifying documentation. Please respond to the clarification below the line at the bottom and electronically sign. The CDI & [facility] Coding staff will review the response and follow-up if needed. Please note: Queries are made part of the Legal Health Record. If you have any questions, please contact the author of this message via ITS. Dr. Enoch Galarza: Chronic Kidney Disease is documented in the 03/03 History & Physical and in subsequent Pulmonary, Cardiology & Neurology Consults without further specification. Nephrology is not consulted. Additional clarification regarding the stage of CKD is requested. History/Risk Factors per the 03/03 H/P: CAD, Cardiomyopathy, CKD. Per the 03/01 ED Note: Atrial Fibrillation, COPD, Prostate Cancer status post Prostatectomy and Hypertension. Clinical Indicators: Presented to the ED on 03/01 via EMS with SOB in respiratory distress, wheezing. Admit with Heart Failure nos. 03/01 VS: T 98.1, P 122, R 32, BP 200/139, PO 99 BiPAP, BMI: 43.9 LAB: 03/01 BUN: 17. 5/14: 19. 5/15: 32. 5/16: 34. 5/17: 34. 5/18: 28. 5/19: 24. 5/20: 26. 5/21: 22. 5/23: 27. 5/24: 30 03/01 Creatinine: 1/37. 5/14: 1.44. 5/15 2.94. 5/16: 2.51. 5/17: 1.57. 5/18: 1.28. 5/19: 1.10. 5/20: 1.13. /: 1.11. 03/11 1/21. /24: 1.17 03/01 GFR: 51. 5/14: 47. 5/15: 20. 5/16: 24. 5/17: 43. 5/18: 55. 5/: 66. 5/: 64. 5/: 65. 5/: 59. 5/24: 61 Historical GFR: 05/11/2018: 47. 10/05/2018: 75.4. 03/18/2019: 60.5. 07/01/2019: 42.7. 12/01/2019: 54.5. 04/26/2021: 74.3. 11/14/2021: 65. 01/09/2022: 70.4 Treatment 03/01: CHF protocol, CHF protocol, Rolon catheter, O2 2Lnc, Nitro sl, IV Lasix 40 mg x1, INH Duoneb, IV Nitro, po Aspirin, Nitropaste, INH Flovent 1 puff BID. Please clarify the stage of the CKD, if known: [ ] CKD Stage 2 (GFR 60-89) [ ] CKD Stage 3 (GFR 30-59) [ ] CKD Stage 3a (GFR 45-59) [ ] CKD Stage 3b (GFR 30-44) [ ] CKD Stage 4 (GFR 15-29) [ ] Other, please specify [ ] Unable to determine (Template Last revised: November 2020) MTDD
--- NOTE | 2022-03-12 12:11 | CDI ---
Documentation Clarification Form Date: 03/12/2022 11:57:00 AM From: Fransisca Anne CCS, CCDS Admit Date: 03/01/2022 02:30:00 PM Patient Name: Carlos Manuel Bustos Visit Number: [id number] Discharge Date: ATTENTION: The Clinical Documentation Specialists (CDI) and [facility] Coding Staff appreciate your assistance in clarifying documentation. Please respond to the clarification below the line at the bottom and electronically sign. The CDI & [facility] Coding staff will review the response and follow-up if needed. Please note: Queries are made part of the Legal Health Record. If you have any questions, please contact the author of this message via ITS. Dr. Arthur Stock: The following is documented in the Cardiology Progress Notes from 03/03 thru 03/11: Hypotension, rule out Sepsis vs Cardiogenic Shock vs Medication Effect without further specificity. Additional clarification regarding the type of shock is requested. Patient history/risk factors per the 03/02 Cardiology Consult: Atrial Fibrillation, COPD, Hypertension, Osteoarthritis, Sleep Apnea, Prostate Cancer status post Prostatectomy, Depression. Clinical Indicators: Presented to the ED on 03/01 via EMS with SOB and in respiratory distress, very hypoxic, PO in 70s, wheezing, chest pain radiating to the LUE on arrival, EKG with some findings concerning for ischemia or infarction. Admit with Heart Failure 03/01 VS: T 98.1, P 122, R 32 (labored, accessory use), BP 200/139, 150/113; PO 99 BiPAP 40%, BMI: 41.9 03/03 BP 66/43, 71/46, 99/74, 116/79 03/01 LAB: PT 12.4, INR 1.2; K 5.6, Creatinine 1.37, Glucose 142, Lactic Acid 4.3, Total bilirubin 1.7, Troponin 0.202, TSH 5.120 03/01 RAD: CXR: Cardiomegaly correlate for CHF otherwise consider interstitial pneumonia. 03/01 EKG: R 121 Sinus tachycardia, Inferior CO of indeterminate age. 03/01 EKG: R 120 Atrial Flutter/Tachycardia w/RVR, consistent with pulmonary disease, Inferior CO indeterminate age. Treatment: CHF protocol, Rolon Catheter, O2 2Lnc, Nitro sl, IV Lasix 40 mg x1, INH Duoneb 3ml x1, IV Nitro 250 mls @ 6 mls/hr q24H, po Aspirin, Nitropatch. 03/02: IV Cardizem Drip Bolus x1 03/03: IV Na Cl 500 mls @ 999 mls/hr q31M x1, IV Norepinephrine Bitartrate 4 mg ordered: not given. Please clarify the type of shock, if known, please specify if Present on Admission: [ ] Septic Shock [ ] Hypovolemic Shock [ ] Cardiogenic Shock [ ] Shock ruled out [ X ] Hypotension due to Medication Effect, please specify medication(s) if known: [ ] Other, please specify [ ] Unable to determine (Template Last Revised: December 2020) MTDD
--- NOTE | 2022-03-12 13:27 | P.PN ---
Subjective Progress Note Date: 03/12/22 HISTORY OF PRESENTING ILLNESS Patient is a pleasant 77-year-old male with history of hypertension, hyperli pidemia, obesity, atrial fibrillation who presents secondary to worsening dyspnea over the last 3-4 weeks. He states he normally follows with Dr. Kraft from [facility]. He was scheduled to get an echo done however had a last minute trip to [place] and therefore went to [place] instead. He admits he was running out of his medications and thought he could get some of the medications in [place]. Therefore he has been out of number of his medications including his blood pressure meds as well as sotalol. Since coming back he has had progressive dyspnea with 6 pillow orthopnea and increased lower extremity edema and therefore eventually had respiratory distress and EMS was called and patient found to be hypoxic in the 70s. Initial EKG read out as sinus rhythm, sinus tachycardia 130 bpm however has persistently been tachycardic at 1:30 without any variation. Appears concerning for atrial flutter with RVR. He was having significant chest pain and pressure yesterday when he was in respiratory distress however currently improved. He states he had a heart catheterization 5 years ago secondary to abnormal stress test and was told that his coronary arteries are "wide open". Initial lactic acid 4.3, total bilirubin 1.7, troponin 0.16, 0.2, proBNP 18,900, TSH 5.1, creatinine 1.37 with baseline appearing to be 1.0 from December, white blood cell count 10.1. Initial blood pressure was in the 200s over 130 range however restarted on prior medications and better controlled. He states he is feeling somewhat better currently however still continued dyspnea and lower extremity edema. Denies any further chest pain. 03/03 Patient seen and examined. Patient denies any chest pain or pressure. He was started on Cardizem drip yesterday secondary to atrial flutter with RVR however became hypotensive. He did have good urine output with approximately -4 L more or less 24 hours. He has had however increased creatinine from 1.4 up to 2.9. A team was called this morning with another hypotensive episode. Heart rates continue to be in the low 100s to 130s. Remains in atrial flutter with variable conduction. Lactic acid has been normal. He has been somewhat more confused recently. He was feeling lightheaded previously during the hypotensive episode and had some chest discomfort. 03/04 Patient seen and examined. Patient transferred to ICU briefly placed on the Levophed and given additional IV fluid bolus yesterday with some improvement in blood pressure. Still has been borderline blood pressures and briefly off of norepinephrine however currently back on 0.01. Denies any chest pain or pressure. Admits to some lower abdominal mild pain. Denies any shortness breath. Still appears mildly confused. Creatinine somewhat improved 2.9-2.5. Lasix was decreased to once a day. 03/05 Patient seen and examined. Denies any chest pain or pressure. He was more confused overnight requiring temporary restraints. Neurology consulted with recommendations of changing psychiatric medications. Cr improved today. Off and on low dose vasopressors. Procalcitonin mildly elevated. Echo performed with EF 40-45% with small pericardial effusion however no mention of any tamponade physiology. Off and on Aflutter with RVR HR's 90-120's 03/06 Patient seen and examined. Patient states overall he is feeling better. He was having confusion and aggression yesterday requiring some held all however this has improved over last 24 hours. Telemetry reveals continued atrial flutter with heart rates 90s to low 100s. Creatinine again improved to 1.2 today. 03/07 Patient seen and examined. Patient continues be more alert and denies any issues. Still on low-dose of norepinephrine and patient was started on Midrin yesterday. Cr improved to 1.1. Patient was placed on IV fluids. 03/08 Patient seen and examined. Patient had increased episode of agitation requiring Haldol yesterday. He has been on the sotalol however no prolongation his QT noted this morning. He remains confused and aggressive this morning. Blood pressures have remained or line and he has been off of the norepinephrine since yesterday. Remains in atrial flutter with relatively controlled rates. 03/11/2022 Patient examined this morning at the bedside. His been moved out of the ICU to the telemetry unit. Patient denies chest pain or pressure. Denies SOB. Telemetry reveals atrial flutter with heart rate in the 70s. Vital signs are stable. He is on room air with oxygen saturations greater than 92%. He is anticoagulated with Xarelto 03/12/2022 Patient examined this morning at the bedside. Patient denies SOB. Denies chest pain or pressure. He continues to have lower extremity edema. He remains on oral lasix. Telemetry reveals aflutter with controlled ventricular rates. PHYSICAL EXAMINATION Vital signs reviewed. CONSTITUTIONAL: No apparent distress HEENT: Head is normocephalic. Pupils are equal, round. Sclerae anicteric. Mucous membranes of the mouth are moist. No JVD. No carotid bruit. CHEST EXAMINATION: Diminished at bases, No chest wall tenderness is noted on palpation or with deep breathing. HEART EXAMINATION: Irregular rhythm. S1, S2 heard. No murmurs, gallops or rub. EXTREMITIES: 2+ peripheral pulses, 2+ lower extremity edema and no calf tenderness. ASSESSMENT 1. Acute on chronic heart failure, systolic 2. Atrial flutter with RVR 3. Initial hypertensive emergency with blood pressure 200s over 130s improved, now hypotensive may be medication effect 4. Acute on chronic kidney injury 5. Medical noncompliance, patient recently ran out of numerous medications 6. Paroxysmal atrial fibrillation 7. Non-STEMI, likely type II mechanism related to hypoxia, hypertension, heart failure. Reported normal heart catheterization previously 8. Hypotension, rule out sepsis versus cardiogenic shock versus medication effect line 9. Lower extremity edema suspect component of chronic venous insufficiency 9. Small localized pericardial effusion, no tamponade PLAN Continue current cardiac medications Add Aldactone 25 mg daily Continue anticoagulation with Xarelto Continue telemetry monitoring Further recommendations pending patient course Nurse practitioner note has been reviewed by physician. Signing provider agrees with the documented findings, assessment, and plan of care. Objective - Vital Signs Vital signs: Vital Signs Temp 98.7 F 03/12/22 08:53 Pulse 81 03/12/22 08:53 Resp 18 03/12/22 08:53 BP 104/55 03/12/22 08:53 Pulse Ox 94 L 03/12/22 08:53 FiO2 30 03/10/22 03:25 Intake & Output 03/11/22 03/12/22 03/12/22 18:59 06:59 18:59 Intake Total 1318 120 Output Total 250 950 Balance 1068 -950 120 Intake: Oral 1318 120 Output: Urine 250 950 Other: Voiding Method Indwelling Catheter Indwelling Catheter - Labs CBC & Chem 7: 03/11/22 07:28 03/12/22 10:54 Labs: Abnormal Lab Results - Last 24 Hours (Table) 03/12/22 Range/Units 10:54 Sodium 134 L (137-145) mmol/L BUN 30 H (9-20) mg/dL Glucose 120 H (74-99) mg/dL Calcium 8.2 L (8.4-10.2) mg/dL
--- NOTE | 2022-03-12 13:36 | P.PN ---
Subjective Progress Note Date: 03/12/22 03/12/2022, the patient remains on room air oxygen. Doing well up until specific complaints. Remains in atrial flutter/fib. Nevertheless the patient is anticoagulated. The patient is not having any chest pain. No cough sputum production chest tightness or wheezing. Lower extremity edema continues to improve as the patient is still being diuresis with Lasix 20 mg by mouth twice a day. The patient on long-term medical condition with adequate 20 mg once a day. The patient is also on Aldactone. Discharge planning is in progress. No fever. No chest pain no mental status change. The patient's creatinine today is at 1.0 with a BUN of 30. Objective - Vital Signs Vital signs: Vital Signs Temp 98.7 F 03/12/22 08:53 Pulse 74 03/12/22 12:00 Resp 18 03/12/22 12:00 BP 97/63 03/12/22 12:00 Pulse Ox 97 03/12/22 12:00 FiO2 30 03/10/22 03:25 Intake & Output 03/11/22 03/12/22 03/12/22 18:59 06:59 18:59 Intake Total 1318 120 Output Total 250 950 Balance 1068 -950 120 Intake: Oral 1318 120 Output: Urine 250 950 Other: Voiding Method Indwelling Catheter Indwelling Catheter Indwelling Catheter - Exam GENERAL EXAM: Alert, pleasant, 76-year-old white male male with a pulse ox of 94% comfortable in no apparent distress. HEAD: Normocephalic/atraumatic. EYES: Normal reaction of pupils, equal size. Conjunctiva pink, sclera white. NOSE: Clear with pink turbinates. THROAT: No erythema or exudates. NECK: No masses, no JVD, no thyroid enlargement, no adenopathy. CHEST: No chest wall deformity. Symmetrical expansion. LUNGS: Equal air entry with no crackles, wheeze, rhonchi or dullness. CVS: Irregular rate and rhythm, normal S1 and S2, no gallops, no murmurs, no rubs ABDOMEN: Soft, nontender. No hepatosplenomegaly, normal bowel sounds, no guarding or rigidity. EXTREMITIES: No clubbing, +2nd tone normal. SPINE: No scoliosis or deformity SKIN: No rashes CENTRAL NERVOUS SYSTEM: Alert and oriented -3. No focal deficits, tone is normal in all 4 extremities. PSYCHIATRIC: Alert and oriented -3. Appropriate affect. Intact judgment and insight. - Labs CBC & Chem 7: 03/11/22 07:28 03/12/22 10:54 Labs: Abnormal Lab Results - Last 24 Hours (Table) 03/12/22 Range/Units 10:54 Sodium 134 L (137-145) mmol/L BUN 30 H (9-20) mg/dL Glucose 120 H (74-99) mg/dL Calcium 8.2 L (8.4-10.2) mg/dL Assessment and Plan Plan: Assessment: #1. Acute hypoxic respiratory failure secondary to acute on chronic systolic heart failure, ejection fraction of 40-45%, clinically improved and the patient is currently on room air oxygen #2. Atrial flutter, rate controlled. Patient is back on Xarelto. The rate is controlled for now #3. Possible non-ST elevation myocardial infarction #4. Acute on chronic kidney injury, improved #5. Hypotension, medications induced and suspect overdiuresis. off pressors, patient is on midodrine, improved #6. History of obstructive sleep apnea syndrome #7. History of prostate cancer and previous prostatectomy #8. Idiopathic neuropathy #9. Acute metabolic encephalopathy, intermittent agitation and combativeness, resolved And: Continue oral Lasix 20 mg twice daily Patient still has significant amount of lower extremity edema Patient is breathing comfortably, O2 saturations are improved and patient is on room air Vital signs are stable Follow-up blood work including electrolytes and renal profile tomorrow Discharge planning is in progress and the patient will likely go to ECF. Renal Function is stable. The electrolytes are stable.
[2022-03-12 13:40] VITALS: BMI 43.9
[2022-03-12] MEDS: RIVAROXABAN 20 MG TAB PO SCH (17:19)
[2022-03-12] MEDS: SPIRONOLACTONE 25 MG TAB PO SCH (18:52)
--- NOTE | 2022-03-12 19:50 | PN ---
PROGRESS NOTE DATE OF SERVICE: 03/11/2022. CHIEF COMPLAINT: Status post cardiorespiratory arrest and acute pulmonary edema. HISTORY OF PRESENT ILLNESS: This gentleman is improving. He remains very weak and his mentation seems slower than normal. His heart failure is under good control. Blood pressure is now up over 100 systolic. PHYSICAL EXAMINATION: He is awake and semi alert. He seems appropriate. Neck veins not distended. Chest is clear. Cardiac exam is normal except for an irregularly irregular rhythm. Abdomen is protuberant, soft and nontender. IMPRESSION: 1. Acute congestive heart failure. 2. Possible mild encephalopathy. 3. Cardiomyopathy. 4. History of coronary artery disease. 5. History of previous cerebrovascular accident. PLAN: Continue with supportive efforts and try to increase physical activity with physical therapy while considering a discharge plan. MMODL / IJN: [id number] /
--- NOTE | 2022-03-12 20:08 | PN ---
PROGRESS NOTE CHIEF COMPLAINT: Acute congestive heart failure and pulmonary edema. HISTORY OF PRESENT ILLNESS: This gentleman seems to be doing fairly well but remains very weak. He can get out of bed. PHYSICAL EXAMINATION: He has scattered rhonchi and rales throughout both lung rose. His cardiac exam reveals a tachycardia of around 90. Abdomen: Soft, nontender. IMPRESSION: 1. Cardiomyopathy. 2. Acute congestive heart failure. 3. Coronary artery disease. 4. Delirium. 5. Possible anoxic brain injury. PLAN: Physical and occupational therapies and continue to monitor his congestive heart failure. MMODL / IJN: [id number] /
[2022-03-13] MEDS: LEVOTHYROXINE 25 MCG TAB PO SCH (06:47)
[2022-03-13] MEDS: MIDODRINE 5 MG TAB PO SCH ×3 (06:47→17:11)
[2022-03-13] MEDS: FLUTICASONE 110 MCG INHALER INHALATION SCH ×2 (07:53→20:38)
--- NOTE | 2022-03-13 08:48 | CDI ---
Documentation Clarification Form Date: 03/13/2022 08:35:42 AM From: Fransisca Anne CCS, CCDS Admit Date: 03/01/2022 02:30:00 PM Patient Name: Carlos Manuel Bustos Visit Number: [id number] Discharge Date: ATTENTION: The Clinical Documentation Specialists (CDI) and [facility] Coding Staff appreciate your assistance in clarifying documentation. Please respond to the clarification below the line at the bottom and electronically sign. The CDI & [facility] Coding staff will review the response and follow-up if needed. Please note: Queries are made part of the Legal Health Record. If you have any questions, please contact the author of this message via ITS. Dr. Enoch Galarza: A Pressure Injury on the Left Buttock Stage II is documented in the nursing Wound Assessment beginning on 03/03 and continued through 03/12, the patient was admitted on 03/01. Based on this information and the findings below, is there an additional diagnosis that is clinically appropriate for this patient? History/Risk Factors per the 03/03 H/P: CAD, Cardiomyopathy, Psychiatric Issues, CKD. Per the 03/01 ED Note the patient also has Atrial Fibrillation, COPD & Hypertension. Clinical Indicators: Presented to the ED on 03/01 via EMS with SOB, in respiratory distress, very hypoxic in 70s, wheezing. Concern for Hypertensive Emergency and Acute Pulmonary Edema. Admit with Heart Failure. Nursing Wound Assessment 03/03: Pressure Injury, Present on Admission, Stage II Left Buttock. Treatment 03/01: CHF Protocol, Rolon catheter initiation, No specific treatment is documented for the patient's pressure injury. Is there an additional diagnosis that is clinically appropriate for this patient? [ ] Pressure Injury, Left Buttock, Stage II, Present on Admission [ ] Pressure Injury, Left Buttock, Stage II, Not Present on Admission [ ] Pressure Injury, Left Buttock, other specified stage: , Present on Admission [ ] Pressure Injury, Left Buttock, other specified stage: , Not Present on Admission [ ] Other, please specify: [ ] Unable to determine (Template Last Revised: December 2020) MTDD
[2022-03-13] MEDS: SPIRONOLACTONE 25 MG TAB PO SCH (09:11)
[2022-03-13] MEDS: ASPIRIN 81 MG PO SCH (09:11)
[2022-03-13] MEDS: buPROPion XL 150 MG TAB.ER.24H PO SCH (09:11)
[2022-03-13] MEDS: METOPROLOL TARTRATE 25 MG TAB PO SCH ×2 (09:11→21:45)
[2022-03-13] MEDS: SOTALOL 80 MG TAB PO SCH ×2 (09:11→21:46)
[2022-03-13] MEDS: PREGABALIN 75 MG CAP PO SCH ×3 (09:11→21:45)
[2022-03-13] MEDS: ARIPiprazole 10 MG TAB PO SCH (09:11)
[2022-03-13] MEDS: DULoxetine HCL 60 MG CAPSULE.DR PO SCH (09:11)
[2022-03-13] MEDS: FUROSEMIDE 20 MG TAB PO SCH ×2 (09:12→17:11)
[2022-03-13] MEDS: ATORVASTATIN 20 MG TAB PO SCH (09:12)
[2022-03-13] MEDS: FOLIC ACID 1 MG TAB PO SCH (09:12)
[2022-03-13] MEDS: OXYBUTYNIN 10 MG TAB.ER.24 PO SCH ×2 (09:12→21:45)
[2022-03-13] MEDS: lamoTRIgine 100 MG TAB PO SCH ×2 (09:13→21:45)
[2022-03-13] MEDS: ALPRAZolam 0.5 MG TAB PO SCH ×3 (10:47→21:54)
--- NOTE | 2022-03-13 11:05 | P.PN ---
Subjective Progress Note Date: 03/13/2203/13 2022, the patient remains on room air oxygen. Doing well. No specific complaints. Sitting up on a chair. He is on metoprolol 25 mg by mouth twice a day. He is also on Lasix 20 mg by mouth twice a day and Aldactone 25 mg by mouth daily. He remains on long-term anticoagulation with Xarelto 20 mg by mouth daily. He is also on sotalol 80 mg twice a day. No new complaints. No nausea. No vomiting. No chest pain. Discharge planning is in progress. No other significant events overnight. He remains on room air oxygen. The BUN is at 30 with a creatinine of 1.1 and the sodium level is at 134. Objective - Vital Signs Vital signs: Vital Signs Temp 97.6 F 03/13/22 09:19 Pulse 77 03/13/22 09:19 Resp 16 03/13/22 09:19 BP 137/88 03/13/22 09:19 Pulse Ox 90 L 03/13/22 09:19 FiO2 30 03/10/22 03:25 Intake & Output 03/12/22 03/13/22 03/13/22 18:59 06:59 18:59 Intake Total 360 Output Total 500 270 Balance -140 -270 Weight 151 kg Intake: Oral 360 Output: Urine 500 270 Other: Voiding Method Indwelling Catheter Urinal Urinal - Exam GENERAL EXAM: Alert, pleasant, 76-year-old white male male with a pulse ox of 94% comfortable in no apparent distress. HEAD: Normocephalic/atraumatic. EYES: Normal reaction of pupils, equal size. Conjunctiva pink, sclera white. NOSE: Clear with pink turbinates. THROAT: No erythema or exudates. NECK: No masses, no JVD, no thyroid enlargement, no adenopathy. CHEST: No chest wall deformity. Symmetrical expansion. LUNGS: Equal air entry with no crackles, wheeze, rhonchi or dullness. CVS: Irregular rate and rhythm, normal S1 and S2, no gallops, no murmurs, no rubs ABDOMEN: Soft, nontender. No hepatosplenomegaly, normal bowel sounds, no guarding or rigidity. EXTREMITIES: No clubbing, +2nd tone normal. SPINE: No scoliosis or deformity SKIN: No rashes CENTRAL NERVOUS SYSTEM: Alert and oriented -3. No focal deficits, tone is normal in all 4 extremities. PSYCHIATRIC: Alert and oriented -3. Appropriate affect. Intact judgment and insight. - Labs CBC & Chem 7: 03/11/22 07:28 03/12/22 10:54 Labs: Abnormal Lab Results - Last 24 Hours (Table) 03/12/22 Range/Units 10:54 Sodium 134 L (137-145) mmol/L BUN 30 H (9-20) mg/dL Glucose 120 H (74-99) mg/dL Calcium 8.2 L (8.4-10.2) mg/dL Assessment and Plan Plan: Assessment: #1. Acute hypoxic respiratory failure secondary to acute on chronic systolic heart failure, ejection fraction of 40-45%, clinically improved and the patient is currently on room air oxygen #2. Atrial flutter, rate controlled. Patient is back on Xarelto. The rate is controlled for now #3. Possible non-ST elevation myocardial infarction #4. Acute on chronic kidney injury, improved #5. Hypotension, medications induced and suspect overdiuresis. off pressors, patient is on midodrine, improved #6. History of obstructive sleep apnea syndrome #7. History of prostate cancer and previous prostatectomy #8. Idiopathic neuropathy #9. Acute metabolic encephalopathy, intermittent agitation and combativeness, resolved And: Continue oral Lasix 20 mg twice daily in combination with Aldactone Patient still has significant amount of lower extremity edema and there is improved considerably although there is still residual edema Patient is breathing comfortably, O2 saturations are improved and patient is on room air Vital signs are stable Continue metoprolol and sotalol and long-term articulation with Xarelto. Follow-up blood work including electrolytes and this was noted from today Discharge planning is in progress -. He is more active and the patient is moving with the help of a walker. No encephalopathy for today. Renal function is stable with a creatinine of 1.1. ECF transfer for further rehabilitation versus home
[2022-03-13 13:24] LABS: Calcium 9.4 mg/dL (8.4-10.2); Potassium 4.6 mmol/L (3.5-5.1)
[2022-03-13] MEDS: RIVAROXABAN 20 MG TAB PO SCH (17:11)
--- NOTE | 2022-03-13 17:16 | P.PN ---
Subjective Progress Note Date: 03/13/22 Patient is a pleasant 77-year-old male with history of hypertension, hyperlipidemia, obesity, atrial fibrillation who presents secondary to worsening dyspnea over the last 3-4 weeks. He states he normally follows with Dr. Kraft from [facility]. He was scheduled to get an echo done however had a last minute trip to [place] and therefore went to [place] instead. He admits he was running out of his medications and thought he could get some of the medications in [place]. Therefore he has been out of number of his medications including his blood pressure meds as well as sotalol. Since coming back he has had progressive dyspnea with 6 pillow orthopnea and increased lower extremity edema and therefore eventually had respiratory distress and EMS was called and patient found to be hypoxic in the 70s. Initial EKG read out as sinus rhythm, sinus tachycardia 130 bpm however has persistently been tachycardic at 1:30 without any variation. Appears concerning for atrial flutter with RVR. He was having significant chest pain and pressure yesterday when he was in respiratory distress however currently improved. He states he had a heart catheterization 5 years ago secondary to abnormal stress test and was told that his coronary arteries are "wide open". Initial lactic acid 4.3, total bilirubin 1.7, troponin 0.16, 0.2, proBNP 18,900, TSH 5.1, creatinine 1.37 with baseline appearing to be 1.0 from December, white blood cell count 10.1. Initial blood pressure was in the 200s over 130 range however restarted on prior medications and better controlled. He states he is feeling somewhat better currently however still continued dyspnea and lower extremity edema. Denies any further chest pain. 03/13/2022: This patient is admitted to the hospital with atypical fibrillation and combined CHF. Yesterday patient was initiated on Aldactone 25 mg. He is diuresed well and his edema is much better. He is feeling good. Patient also had a metabolic encephalopathy which seemed to gradually improving. His lungs are clear. Heart is irregular. Patient can continue current medical therapy and increase activity. Patient is still having generalized weakness. 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 Close monitoring of electrolytes. His creatinine is up to 1.3 today. Potassium is within normal range Objective - Vital Signs Vital signs: Vital Signs Temp 97.6 F 03/13/22 09:19 Pulse 99 03/13/22 14:00 Resp 18 03/13/22 14:00 BP 136/93 03/13/22 12:00 Pulse Ox 93 L 03/13/22 12:00 FiO2 30 03/10/22 03:25 Intake & Output 03/12/22 03/13/22 03/13/22 18:59 06:59 18:59 Intake Total 360 Output Total 500 270 Balance -140 -270 Weight 151 kg Intake: Oral 360 Output: Urine 500 270 Other: Voiding Method Indwelling Catheter Urinal Urinal - Exam GENERAL EXAM: Patient is alert and oriented and doesn't appear to be in any acute distress HEENT: Normocephalic. Normal reaction of pupils, equal size, normal range of extraocular motion. No erythema or exudates in the throat. NECK: No masses, no nuchal rigidity. CHEST: No chest wall deformity. LUNGS: Diminished breath sounds HEART: S1 and S2 normal. Irregular heart rhythm ABDOMEN: No hepatosplenomegaly, normal bowel sounds, no guarding or rigidity. SKIN: No rashes CENTRAL NERVOUS SYSTEM: No focal deficits. EXTREMITIES: 1-2+ edema - Labs CBC & Chem 7: 03/11/22 07:28 03/13/22 12:35 Labs: Abnormal Lab Results - Last 24 Hours (Table) 03/13/22 Range/Units 12:35 BUN 30 H (9-20) mg/dL Creatinine 1.35 H (0.66-1.25) mg/dL Assessment and Plan (1) Persistent atrial fibrillation Current Visit: Yes Status: Acute Code(s): I48.19 - OTHER PERSISTENT ATRIAL FIBRILLATION SNOMED Code(s): 199412695 (2) Acute on chronic combined systolic and diastolic CHF (congestive heart failure) Current Visit: Yes Status: Acute Code(s): I50.43 - ACUTE ON CHRONIC COMBINED SYSTOLIC AND DIASTOLIC HRT FAIL SNOMED Code(s): 446791144399272 (3) Metabolic encephalopathy Current Visit: Yes Status: Acute Code(s): G93.41 - METABOLIC ENCEPHALOPATHY SNOMED Code(s): 98407783 Plan: Continue current medical therapy. Physical therapy. Close monitoring of electrolytes. 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
[2022-03-14] MEDS: LEVOTHYROXINE 25 MCG TAB PO SCH (06:04)
[2022-03-14] MEDS: FLUTICASONE 110 MCG INHALER INHALATION SCH ×2 (08:14→20:33)
[2022-03-14] MEDS: ATORVASTATIN 20 MG TAB PO SCH (09:18)
[2022-03-14] MEDS: ASPIRIN 81 MG PO SCH (09:18)
[2022-03-14] MEDS: DULoxetine HCL 60 MG CAPSULE.DR PO SCH (09:18)
[2022-03-14] MEDS: ALPRAZolam 0.5 MG TAB PO SCH ×3 (09:18→21:07)
[2022-03-14] MEDS: SPIRONOLACTONE 25 MG TAB PO SCH (09:18)
[2022-03-14] MEDS: lamoTRIgine 100 MG TAB PO SCH ×2 (09:18→21:07)
[2022-03-14] MEDS: PREGABALIN 75 MG CAP PO SCH ×3 (09:18→21:07)
[2022-03-14] MEDS: METOPROLOL TARTRATE 25 MG TAB PO SCH ×2 (09:19→21:07)
[2022-03-14] MEDS: ARIPiprazole 10 MG TAB PO SCH (09:19)
[2022-03-14] MEDS: OXYBUTYNIN 10 MG TAB.ER.24 PO SCH ×2 (09:19→21:37)
[2022-03-14] MEDS: buPROPion XL 150 MG TAB.ER.24H PO SCH (09:19)
[2022-03-14] MEDS: SOTALOL 80 MG TAB PO SCH ×2 (09:19→21:37)
[2022-03-14] MEDS: FOLIC ACID 1 MG TAB PO SCH (09:21)
[2022-03-14] MEDS: MIDODRINE 5 MG TAB PO SCH ×3 (09:22→16:34)
[2022-03-14] MEDS: FUROSEMIDE 20 MG TAB PO SCH ×2 (09:22→16:34)
--- NOTE | 2022-03-14 10:46 | P.PN ---
Subjective Progress Note Date: 03/14/22 HISTORY OF PRESENTING ILLNESS Patient is a pleasant 77-year-old male with history of hypertension, hyperli pidemia, obesity, atrial fibrillation who presents secondary to worsening dyspnea over the last 3-4 weeks. He states he normally follows with Dr. Kraft from [facility]. He was scheduled to get an echo done however had a last minute trip to [place] and therefore went to [place] instead. He admits he was running out of his medications and thought he could get some of the medications in [place]. Therefore he has been out of number of his medications including his blood pressure meds as well as sotalol. Since coming back he has had progressive dyspnea with 6 pillow orthopnea and increased lower extremity edema and therefore eventually had respiratory distress and EMS was called and patient found to be hypoxic in the 70s. Initial EKG read out as sinus rhythm, sinus tachycardia 130 bpm however has persistently been tachycardic at 1:30 without any variation. Appears concerning for atrial flutter with RVR. He was having significant chest pain and pressure yesterday when he was in respiratory distress however currently improved. He states he had a heart catheterization 5 years ago secondary to abnormal stress test and was told that his coronary arteries are "wide open". Initial lactic acid 4.3, total bilirubin 1.7, troponin 0.16, 0.2, proBNP 18,900, TSH 5.1, creatinine 1.37 with baseline appearing to be 1.0 from December, white blood cell count 10.1. Initial blood pressure was in the 200s over 130 range however restarted on prior medications and better controlled. He states he is feeling somewhat better currently however still continued dyspnea and lower extremity edema. Denies any further chest pain. 03/03 Patient seen and examined. Patient denies any chest pain or pressure. He was started on Cardizem drip yesterday secondary to atrial flutter with RVR however became hypotensive. He did have good urine output with approximately -4 L more or less 24 hours. He has had however increased creatinine from 1.4 up to 2.9. A team was called this morning with another hypotensive episode. Heart rates continue to be in the low 100s to 130s. Remains in atrial flutter with variable conduction. Lactic acid has been normal. He has been somewhat more confused recently. He was feeling lightheaded previously during the hypotensive episode and had some chest discomfort. 03/04 Patient seen and examined. Patient transferred to ICU briefly placed on the Levophed and given additional IV fluid bolus yesterday with some improvement in blood pressure. Still has been borderline blood pressures and briefly off of norepinephrine however currently back on 0.01. Denies any chest pain or pressure. Admits to some lower abdominal mild pain. Denies any shortness breath. Still appears mildly confused. Creatinine somewhat improved 2.9-2.5. Lasix was decreased to once a day. 03/05 Patient seen and examined. Denies any chest pain or pressure. He was more confused overnight requiring temporary restraints. Neurology consulted with recommendations of changing psychiatric medications. Cr improved today. Off and on low dose vasopressors. Procalcitonin mildly elevated. Echo performed with EF 40-45% with small pericardial effusion however no mention of any tamponade physiology. Off and on Aflutter with RVR HR's 90-120's 03/06 Patient seen and examined. Patient states overall he is feeling better. He was having confusion and aggression yesterday requiring some held all however this has improved over last 24 hours. Telemetry reveals continued atrial flutter with heart rates 90s to low 100s. Creatinine again improved to 1.2 today. 03/07 Patient seen and examined. Patient continues be more alert and denies any issues. Still on low-dose of norepinephrine and patient was started on Midrin yesterday. Cr improved to 1.1. Patient was placed on IV fluids. 03/08 Patient seen and examined. Patient had increased episode of agitation requiring Haldol yesterday. He has been on the sotalol however no prolongation his QT noted this morning. He remains confused and aggressive this morning. Blood pressures have remained or line and he has been off of the norepinephrine since yesterday. Remains in atrial flutter with relatively controlled rates. 03/11/2022 Patient examined this morning at the bedside. His been moved out of the ICU to the telemetry unit. Patient denies chest pain or pressure. Denies SOB. Telemetry reveals atrial flutter with heart rate in the 70s. Vital signs are stable. He is on room air with oxygen saturations greater than 92%. He is anticoagulated with Xarelto 03/12/2022 Patient examined this morning at the bedside. Patient denies SOB. Denies chest pain or pressure. He continues to have lower extremity edema. He remains on oral lasix. Telemetry reveals aflutter with controlled ventricular rates. 03/13/2022: This patient is admitted to the hospital with atypical fibrillation and combined CHF. Yesterday patient was initiated on Aldactone 25 mg. He is diuresed well and his edema is much better. He is feeling good. Patient also had a metabolic encephalopathy which seemed to gradually improving. His lungs are clear. Heart is irregular. Patient can continue current medical therapy and increase activity. Patient is still having generalized weakness. Follow-up with his own emergency management director upon discharge. Close monitoring of electrolytes. His creatinine is up to 1.3 today. Potassium is within normal range 03/14/2022 Patient examined this morning at the bedside. Patient denies chest pain or pressure. He denies shortness of breath. He reports improvement in his lower extremity edema. Labs this morning are currently pending. PHYSICAL EXAMINATION Vital signs reviewed. CONSTITUTIONAL: No apparent distress HEENT: Head is normocephalic. Pupils are equal, round. Sclerae anicteric. Mucous membranes of the mouth are moist. No JVD. No carotid bruit. CHEST EXAMINATION: Diminished at bases, No chest wall tenderness is noted on palpation or with deep breathing. HEART EXAMINATION: Irregular rhythm. S1, S2 heard. No murmurs, gallops or rub. EXTREMITIES: 2+ peripheral pulses, 2+ lower extremity edema and no calf tenderness. ASSESSMENT 1. Acute on chronic heart failure, systolic 2. Atrial flutter with RVR 3. Initial hypertensive emergency with blood pressure 200s over 130s improved, now hypotensive may be medication effect 4. Acute on chronic kidney injury 5. Medical noncompliance, patient recently ran out of numerous medications 6. Paroxysmal atrial fibrillation 7. Non-STEMI, likely type II mechanism related to hypoxia, hypertension, heart failure. Reported normal heart catheterization previously 8. Hypotension, rule out sepsis versus cardiogenic shock versus medication ef fect line 9. Lower extremity edema suspect component of chronic venous insufficiency 9. Small localized pericardial effusion, no tamponade PLAN Continue current cardiac medications await BMP from this morning Continue anticoagulation with Xarelto Continue telemetry monitoring patient is stable from a cardiac standpoint. He is to follow up outpatient with his primary emergency management director Further recommendations pending patient course Nurse practitioner note has been reviewed by physician. Signing provider agrees with the documented findings, assessment, and plan of care. Objective - Vital Signs Vital signs: Vital Signs Temp 98.5 F 03/14/22 04:00 Pulse 85 03/14/22 04:00 Resp 18 03/14/22 04:00 BP 132/87 03/14/22 04:00 Pulse Ox 96 03/14/22 04:00 FiO2 30 03/10/22 03:25 Intake & Output 03/13/22 03/14/22 03/14/22 18:59 06:59 18:59 Intake Total 240 Output Total 350 320 Balance -110 -320 Weight 148.3 kg Intake: Oral 240 Output: Urine 350 320 Other: Voiding Method Urinal Urinal - Labs CBC & Chem 7: 03/11/22 07:28 03/13/22 12:35 Labs: Abnormal Lab Results - Last 24 Hours (Table) 03/13/22 Range/Units 12:35 BUN 30 H (9-20) mg/dL Creatinine 1.35 H (0.66-1.25) mg/dL
[2022-03-14] MEDS ORDERED: MIDODRINE 5 MG TAB ONE (11:59)
--- NOTE | 2022-03-14 14:43 | P.PN ---
Subjective Progress Note Date: 03/14/22 The patient is seen today 03/14/2022 in follow-up on the selective care unit. He is currently resting comfortably in bed. Awake and alert in no acute distress. Maintaining good O2 saturations in the 90s on room air. Afebrile. Hemodynamically stable. The patient did sustain a fall yesterday while getting himself up out of bed. No reported injuries. Objective - Vital Signs Vital signs: Vital Signs Temp 97.8 F 03/14/22 08:44 Pulse 78 03/14/22 08:44 Resp 18 03/14/22 08:44 BP 155/79 03/14/22 08:44 Pulse Ox 93 L 03/14/22 08:44 FiO2 30 03/10/22 03:25 Intake & Output 03/13/22 03/14/22 03/14/22 18:59 06:59 18:59 Intake Total 240 Output Total 350 320 Balance -110 -320 Weight 148.3 kg Intake: Oral 240 Output: Urine 350 320 Other: Voiding Method Urinal Urinal - Exam GENERAL EXAM: Alert, pleasant, 76-year-old male with a room air pulse ox of 93% comfortable in no apparent distress. HEAD: Normocephalic/atraumatic. EYES: Normal reaction of pupils, equal size. Conjunctiva pink, sclera white. NOSE: Clear with pink turbinates. THROAT: No erythema or exudates. NECK: No masses, no JVD, no thyroid enlargement, no adenopathy. CHEST: No chest wall deformity. Symmetrical expansion. LUNGS: Equal air entry with no crackles, wheeze, rhonchi or dullness. CVS: Irregular rate and rhythm, normal S1 and S2, no gallops, no murmurs, no rubs ABDOMEN: Soft, nontender. No hepatosplenomegaly, normal bowel sounds, no guarding or rigidity. EXTREMITIES: No clubbing, +2nd tone normal. SPINE: No scoliosis or deformity SKIN: No rashes CENTRAL NERVOUS SYSTEM: No focal deficits, tone is normal in all 4 extremities. PSYCHIATRIC: Alert and oriented -3. Appropriate affect. Intact judgment and insight. - Labs CBC & Chem 7: 03/11/22 07:28 03/13/22 12:35 Labs: Abnormal Lab Results - Last 24 Hours (Table) 03/13/22 Range/Units 12:35 BUN 30 H (9-20) mg/dL Creatinine 1.35 H (0.66-1.25) mg/dL Assessment and Plan Assessment: 1 Acute hypoxic respiratory failure secondary to acute on chronic systolic heart failure, ejection fraction of 40-45%, clinically improved and the patient is currently on room air oxygen 2 Atrial flutter, rate controlled. Patient is back on Xarelto. The rate is controlled for now 3 Possible non-ST elevation myocardial infarction 4 Acute on chronic kidney injury, improved 5 Hypotension, medications induced and suspect overdiuresis. off pressors, patient is on midodrine, improved 6 History of obstructive sleep apnea syndrome 7 History of prostate cancer and previous prostatectomy 8 Idiopathic neuropathy 9 Acute metabolic encephalopathy, intermittent agitation and combativeness, resolved Plan: The patient was seen and evaluated Stable from pulmonary standpoint Maintaining O2 saturations in the 90s on room air Remains on oral diuretics Anticoagulated with Xarelto Discharge planning in place Would benefit from subacute rehabilitation I have personally seen and examined the patient, performed the documentation and the assessment and plan as written. Number of minutes spent on the visit: 10. I have personally seen and examined the patient and reviewed the documentation. I performed a joint evaluation with the nurse practitioner in this evaluation was done more than 20 minutes. I fully agree with the documentation above and the plan of care. The patient had an episode of fall yesterday, no injuries. He is quite weak. We have recommended subacute rehabilitation. He seems to be adamant on going home. I will leave the final decision up to medicine. His exercises stable. No other active issues for now.
[2022-03-14 14:44] LABS: Calcium 8.8 mg/dL (8.4-10.2)
[2022-03-14] MEDS: RIVAROXABAN 20 MG TAB PO SCH (16:34)
--- NOTE | 2022-03-14 20:33 | PN ---
PROGRESS NOTE DATE OF SERVICE: 03/13/2022 CHIEF COMPLAINT: Acute congestive heart failure and pulmonary edema. HISTORY OF PRESENT ILLNESS: This gentleman seems to be doing reasonably well, but he seems lethargic and cognitively not back to normal. He is very weak. REVIEW OF SYSTEMS: He denies chest pain or shortness of breath, but he is lying in bed most of the time. PHYSICAL EXAMINATION: Chest demonstrates somewhat decreased breath sounds due to poor inspiratory effort. Cardiac exam reveals his heart rate to be around 80 and in atrial fibrillation. IMPRESSION: 1. Acute pulmonary edema and congestive heart failure. 2. Encephalopathy. 3. Atrial fibrillation. 4. Depression. PLAN: Continue efforts to increase activity and then make a determination as to whether or not he will be able to go home or have to go for rehab. MMODL / IJN: [id number] /
--- NOTE | 2022-03-14 20:36 | PN ---
PROGRESS NOTE DATE OF SERVICE: 03/14/2022 CHIEF COMPLAINT: Congestive heart failure and general debility. HISTORY OF PRESENT ILLNESS: This gentleman is about the same. He remains very weak and mentally not clear. He apparently fell in the bathroom last night. REVIEW OF SYSTEMS: He denies chest pain, lateralizing weakness or pain. PHYSICAL EXAMINATION: His chest is fairly clear, but there are still occasional rales at the bases and anteriorly. His cardiac exam is unchanged with an S4. The abdomen is protuberant, soft and nontender without any masses. Skin is in good condition. There are no obvious significant injuries. IMPRESSION: 1. Status post acute pulmonary edema. 2. Cardiomyopathy. 3. Coronary artery disease. 4. Delirium and possible anoxic brain injury. 5. Depression. PLAN: Continue therapy. He may have to go to rehab. MMODL / GIULIANAN: [id number] /
[2022-03-15] MEDS: LEVOTHYROXINE 25 MCG TAB PO SCH (06:29)
[2022-03-15] MEDS: MIDODRINE 5 MG TAB PO SCH ×3 (06:29→18:00)
[2022-03-15] MEDS: FLUTICASONE 110 MCG INHALER INHALATION SCH ×2 (08:22→20:17)
[2022-03-15] MEDS: ASPIRIN 81 MG PO SCH (09:20)
[2022-03-15] MEDS: PREGABALIN 75 MG CAP PO SCH ×3 (09:20→22:29)
[2022-03-15] MEDS: lamoTRIgine 100 MG TAB PO SCH ×2 (09:20→22:29)
[2022-03-15] MEDS: METOPROLOL TARTRATE 25 MG TAB PO SCH ×2 (09:20→22:29)
[2022-03-15] MEDS: FOLIC ACID 1 MG TAB PO SCH (09:20)
[2022-03-15] MEDS: ATORVASTATIN 20 MG TAB PO SCH (09:21)
[2022-03-15] MEDS: FUROSEMIDE 20 MG TAB PO SCH ×2 (09:21→14:23)
[2022-03-15] MEDS: buPROPion XL 150 MG TAB.ER.24H PO SCH (09:21)
[2022-03-15] MEDS: ALPRAZolam 0.5 MG TAB PO SCH ×3 (09:21→22:29)
[2022-03-15] MEDS: ARIPiprazole 10 MG TAB PO SCH (09:21)
[2022-03-15] MEDS: DULoxetine HCL 60 MG CAPSULE.DR PO SCH (09:21)
[2022-03-15] MEDS: SOTALOL 80 MG TAB PO SCH ×2 (09:21→22:29)
[2022-03-15] MEDS: OXYBUTYNIN 10 MG TAB.ER.24 PO SCH ×2 (09:21→22:29)
[2022-03-15] MEDS: SPIRONOLACTONE 25 MG TAB PO SCH (09:22)
--- NOTE | 2022-03-15 10:21 | P.PN ---
Subjective Progress Note Date: 03/15/22 HISTORY OF PRESENTING ILLNESS Patient is a pleasant 77-year-old male with history of hypertension, hyperli pidemia, obesity, atrial fibrillation who presents secondary to worsening dyspnea over the last 3-4 weeks. He states he normally follows with Dr. Kraft from [facility]. He was scheduled to get an echo done however had a last minute trip to [place] and therefore went to [place] instead. He admits he was running out of his medications and thought he could get some of the medications in [place]. Therefore he has been out of number of his medications including his blood pressure meds as well as sotalol. Since coming back he has had progressive dyspnea with 6 pillow orthopnea and increased lower extremity edema and therefore eventually had respiratory distress and EMS was called and patient found to be hypoxic in the 70s. Initial EKG read out as sinus rhythm, sinus tachycardia 130 bpm however has persistently been tachycardic at 1:30 without any variation. Appears concerning for atrial flutter with RVR. He was having significant chest pain and pressure yesterday when he was in respiratory distress however currently improved. He states he had a heart catheterization 5 years ago secondary to abnormal stress test and was told that his coronary arteries are "wide open". Initial lactic acid 4.3, total bilirubin 1.7, troponin 0.16, 0.2, proBNP 18,900, TSH 5.1, creatinine 1.37 with baseline appearing to be 1.0 from December, white blood cell count 10.1. Initial blood pressure was in the 200s over 130 range however restarted on prior medications and better controlled. He states he is feeling somewhat better currently however still continued dyspnea and lower extremity edema. Denies any further chest pain. 03/03 Patient seen and examined. Patient denies any chest pain or pressure. He was started on Cardizem drip yesterday secondary to atrial flutter with RVR however became hypotensive. He did have good urine output with approximately -4 L more or less 24 hours. He has had however increased creatinine from 1.4 up to 2.9. A team was called this morning with another hypotensive episode. Heart rates continue to be in the low 100s to 130s. Remains in atrial flutter with variable conduction. Lactic acid has been normal. He has been somewhat more confused recently. He was feeling lightheaded previously during the hypotensive episode and had some chest discomfort. 03/04 Patient seen and examined. Patient transferred to ICU briefly placed on the Levophed and given additional IV fluid bolus yesterday with some improvement in blood pressure. Still has been borderline blood pressures and briefly off of norepinephrine however currently back on 0.01. Denies any chest pain or pressure. Admits to some lower abdominal mild pain. Denies any shortness breath. Still appears mildly confused. Creatinine somewhat improved 2.9-2.5. Lasix was decreased to once a day. 03/05 Patient seen and examined. Denies any chest pain or pressure. He was more confused overnight requiring temporary restraints. Neurology consulted with recommendations of changing psychiatric medications. Cr improved today. Off and on low dose vasopressors. Procalcitonin mildly elevated. Echo performed with EF 40-45% with small pericardial effusion however no mention of any tamponade physiology. Off and on Aflutter with RVR HR's 90-120's 03/06 Patient seen and examined. Patient states overall he is feeling better. He was having confusion and aggression yesterday requiring some held all however this has improved over last 24 hours. Telemetry reveals continued atrial flutter with heart rates 90s to low 100s. Creatinine again improved to 1.2 today. 03/07 Patient seen and examined. Patient continues be more alert and denies any issues. Still on low-dose of norepinephrine and patient was started on Midrin yesterday. Cr improved to 1.1. Patient was placed on IV fluids. 03/08 Patient seen and examined. Patient had increased episode of agitation requiring Haldol yesterday. He has been on the sotalol however no prolongation his QT noted this morning. He remains confused and aggressive this morning. Blood pressures have remained or line and he has been off of the norepinephrine since yesterday. Remains in atrial flutter with relatively controlled rates. 03/11/2022 Patient examined this morning at the bedside. His been moved out of the ICU to the telemetry unit. Patient denies chest pain or pressure. Denies SOB. Telemetry reveals atrial flutter with heart rate in the 70s. Vital signs are stable. He is on room air with oxygen saturations greater than 92%. He is anticoagulated with Xarelto 03/12/2022 Patient examined this morning at the bedside. Patient denies SOB. Denies chest pain or pressure. He continues to have lower extremity edema. He remains on oral lasix. Telemetry reveals aflutter with controlled ventricular rates. 03/13/2022: This patient is admitted to the hospital with atypical fibrillation and combined CHF. Yesterday patient was initiated on Aldactone 25 mg. He is diuresed well and his edema is much better. He is feeling good. Patient also had a metabolic encephalopathy which seemed to gradually improving. His lungs are clear. Heart is irregular. Patient can continue current medical therapy and increase activity. Patient is still having generalized weakness. Follow-up with his own beef pusher upon discharge. Close monitoring of electrolytes. His creatinine is up to 1.3 today. Potassium is within normal range 03/14/2022 Patient examined this morning at the bedside. Patient denies chest pain or pressure. He denies shortness of breath. He reports improvement in his lower extremity edema. Labs this morning are currently pending. 03/15/2022 Patient examined this morning at the bedside. Patient denies shortness of breath. Denies chest pain or pressure. Potassium yesterday 4.0. BUN 29. Creatinine 1.22. Vital signs are stable. PHYSICAL EXAMINATION Vital signs reviewed. CONSTITUTIONAL: No apparent distress HEENT: Head is normocephalic. Pupils are equal, round. Sclerae anicteric. Mucous membranes of the mouth are moist. No JVD. No carotid bruit. CHEST EXAMINATION: Diminished at bases, No chest wall tenderness is noted on palpation or with deep breathing. HEART EXAMINATION: Irregular rhythm. S1, S2 heard. No murmurs, gallops or rub. EXTREMITIES: 2+ peripheral pulses, 2+ lower extremity edema and no calf tenderness. ASSESSMENT 1. Acute on chronic heart failure, systolic 2. Atrial flutter with RVR 3. Initial hypertensive emergency with blood pressure 200s over 130s improved, now hypotensive may be medication effect 4. Acute on chronic kidney injury 5. Medical noncompliance, patient recently ran out of numerous medications 6. Paroxysmal atrial fibrillation 7. Non-STEMI, likely type II mechanism related to hypoxia, hypertension, heart failure. Reported normal heart catheterization previously 8. Hypotension, rule out sepsis versus cardiogenic shock versus medication effect line 9. Lower extremity edema suspect component of chronic venous insufficiency 9. Small localized pericardial effusion, no tamponade PLAN Continue current cardiac medications Continue anticoagulation with Xarelto Continue telemetry monitoring patient is stable from a cardiac standpoint. He is to follow up outpatient with his primary beef pusher Nurse practitioner note has been reviewed by physician. Signing provider agrees with the documented findings, assessment, and plan of care. Objective - Vital Signs Vital signs: Vital Signs Temp 99 F 03/15/22 08:00 Pulse 87 03/15/22 08:00 Resp 16 03/15/22 08:00 BP 101/61 03/15/22 08:00 Pulse Ox 96 03/15/22 08:00 FiO2 30 03/10/22 03:25 Intake & Output 03/14/22 03/15/22 03/15/22 18:59 06:59 18:59 Intake Total 240 Output Total 750 775 Balance -510 -775 Weight 147.5 kg Intake: Oral 240 Output: Urine 750 775 Other: Voiding Method Urinal Urinal - Labs CBC & Chem 7: 03/11/22 07:28 03/14/22 09:44 Labs: Abnormal Lab Results - Last 24 Hours (Table) 03/14/22 Range/Units 09:44 Sodium 135 L (137-145) mmol/L Carbon Dioxide 31 H (22-30) mmol/L BUN 29 H (9-20) mg/dL
--- NOTE | 2022-03-15 12:22 | P.PN ---
Subjective Progress Note Date: 03/15/22 03/15/2022, no new issues and the patient is awaiting to be released home. The patient has refused ECF and he wants to go home. He is on room air oxygen. No signs of any respiratory distress. He is profoundly weak and a mild troponin is a fall risk. Home PT was arranged for this patient along with home care. Objective - Vital Signs Vital signs: Vital Signs Temp 99 F 03/15/22 08:00 Pulse 87 03/15/22 08:00 Resp 16 03/15/22 08:00 BP 101/61 03/15/22 08:00 Pulse Ox 96 03/15/22 08:00 FiO2 30 03/10/22 03:25 Intake & Output 03/14/22 03/15/22 03/15/22 18:59 06:59 18:59 Intake Total 240 Output Total 750 775 Balance -510 -775 Weight 147.5 kg Intake: Oral 240 Output: Urine 750 775 Other: Voiding Method Urinal Urinal - Exam GENERAL EXAM: Alert, pleasant, 76-year-old male with a room air pulse ox of 93% comfortable in no apparent distress. HEAD: Normocephalic/atraumatic. EYES: Normal reaction of pupils, equal size. Conjunctiva pink, sclera white. NOSE: Clear with pink turbinates. THROAT: No erythema or exudates. NECK: No masses, no JVD, no thyroid enlargement, no adenopathy. CHEST: No chest wall deformity. Symmetrical expansion. LUNGS: Equal air entry with no crackles, wheeze, rhonchi or dullness. CVS: Irregular rate and rhythm, normal S1 and S2, no gallops, no murmurs, no rubs ABDOMEN: Soft, nontender. No hepatosplenomegaly, normal bowel sounds, no guarding or rigidity. EXTREMITIES: No clubbing, +2nd tone normal. SPINE: No scoliosis or deformity SKIN: No rashes CENTRAL NERVOUS SYSTEM: No focal deficits, tone is normal in all 4 extremities. PSYCHIATRIC: Alert and oriented -3. Appropriate affect. Intact judgment and insight. - Labs CBC & Chem 7: 03/11/22 07:28 03/14/22 09:44 Labs: Abnormal Lab Results - Last 24 Hours (Table) 03/14/22 Range/Units 09:44 Sodium 135 L (137-145) mmol/L Carbon Dioxide 31 H (22-30) mmol/L BUN 29 H (9-20) mg/dL Assessment and Plan Assessment: 1 Acute hypoxic respiratory failure secondary to acute on chronic systolic heart failure, ejection fraction of 40-45%, clinically improved and the patient is currently on room air oxygen 2 Atrial flutter, rate controlled. Patient is back on Xarelto. The rate is controlled for now 3 Possible non-ST elevation myocardial infarction 4 Acute on chronic kidney injury, improved 5 Hypotension, medications induced and suspect overdiuresis. off pressors, patient is on midodrine, improved 6 History of obstructive sleep apnea syndrome 7 History of prostate cancer and previous prostatectomy 8 Idiopathic neuropathy 9 Acute metabolic encephalopathy, intermittent agitation and combativeness, resolved Plan: Pulmonary critical care services will sign off. The patient's respiratory status is back to his baseline. Profoundly weak. We have made recommendations for ECF for further rehabilitation the patient has declined. I think the plan fordischarge him home along with home PT and home care. I'm was a sign off the case.
[2022-03-15] MEDS: RIVAROXABAN 20 MG TAB PO SCH (18:30)
[2022-03-16] MEDS: LEVOTHYROXINE 25 MCG TAB PO SCH (06:23)
[2022-03-16] MEDS: MIDODRINE 5 MG TAB PO SCH ×3 (06:23→18:36)
[2022-03-16] MEDS: FLUTICASONE 110 MCG INHALER INHALATION SCH ×2 (07:56→20:25)
[2022-03-16] MEDS: PREGABALIN 75 MG CAP PO SCH ×3 (08:07→21:26)
[2022-03-16] MEDS: ALPRAZolam 0.5 MG TAB PO SCH ×3 (08:07→21:26)
[2022-03-16] MEDS: lamoTRIgine 100 MG TAB PO SCH ×2 (08:07→21:26)
[2022-03-16] MEDS: SPIRONOLACTONE 25 MG TAB PO SCH (08:07)
[2022-03-16] MEDS: ASPIRIN 81 MG PO SCH (08:08)
[2022-03-16] MEDS: ATORVASTATIN 20 MG TAB PO SCH (08:08)
[2022-03-16] MEDS: DULoxetine HCL 60 MG CAPSULE.DR PO SCH (08:08)
[2022-03-16] MEDS: FUROSEMIDE 20 MG TAB PO SCH ×2 (08:08→16:55)
[2022-03-16] MEDS: METOPROLOL TARTRATE 25 MG TAB PO SCH ×2 (08:08→21:26)
[2022-03-16] MEDS: SOTALOL 80 MG TAB PO SCH ×2 (08:09→21:26)
[2022-03-16] MEDS: ARIPiprazole 10 MG TAB PO SCH (08:09)
[2022-03-16] MEDS: buPROPion XL 150 MG TAB.ER.24H PO SCH (08:09)
[2022-03-16] MEDS: FOLIC ACID 1 MG TAB PO SCH (08:09)
[2022-03-16] MEDS: OXYBUTYNIN 10 MG TAB.ER.24 PO SCH ×2 (08:09→21:26)
--- NOTE | 2022-03-16 09:40 | PN ---
PROGRESS NOTE CHIEF COMPLAINT: Acute congestive heart failure and pulmonary edema with encephalopathy. HISTORY OF PRESENT ILLNESS: This gentleman is doing just about the same. He is very weak. He will require rehab. He is not complaining of any shortness of breath or chest pain at this time. He is not having any problems with heart rhythm. PHYSICAL EXAM: He remains a little bit more lethargic than is his normal state. Chest demonstrates poor breath sounds with scattered rales and rhonchi. Cardiac exam demonstrates what sounds like a regular rhythm. Abdomen is soft and protuberant. IMPRESSION: 1. Acute congestive heart failure and pulmonary edema. 2. Cardiomyopathy. 3. Probable anoxic encephalopathy. 4. Renal failure. PLAN: Continue with physical therapy while looking into a discharge plan. LINNEA / LYNDSEY: [id number] /
--- NOTE | 2022-03-16 10:37 | P.PN ---
Subjective HISTORY OF PRESENTING ILLNESS Patient is a pleasant 77-year-old male with history of hypertension, hyperlipidemia, obesity, atrial fibrillation who presents secondary to worsening dyspnea over the last 3-4 weeks. He states he normally follows with Dr. Kraft from [facility]. He was scheduled to get an echo done however had a last minute trip to [place] and therefore went to [place] instead. He admits he was running out of his medications and thought he could get some of the medications in [place]. Therefore he has been out of number of his medications including his blood pressure meds as well as sotalol. Since coming back he has had pr ogressive dyspnea with 6 pillow orthopnea and increased lower extremity edema and therefore eventually had respiratory distress and EMS was called and patient found to be hypoxic in the 70s. Initial EKG read out as sinus rhythm, sinus tachycardia 130 bpm however has persistently been tachycardic at 1:30 without any variation. Appears concerning for atrial flutter with RVR. He was having significant chest pain and pressure yesterday when he was in respiratory distress however currently improved. He states he had a heart catheterization 5 years ago secondary to abnormal stress test and was told that his coronary arteries are "wide open". Initial lactic acid 4.3, total bilirubin 1.7, tropo juan carlos 0.16, 0.2, proBNP 18,900, TSH 5.1, creatinine 1.37 with baseline appearing to be 1.0 from December, white blood cell count 10.1. Initial blood pressure was in the 200s over 130 range however restarted on prior medications and better controlled. He states he is feeling somewhat better currently however still continued dyspnea and lower extremity edema. Denies any further chest pain. 03/03 Patient seen and examined. Patient denies any chest pain or pressure. He was started on Cardizem drip yesterday secondary to atrial flutter with RVR however became hypotensive. He did have good urine output with approximately -4 L more or less 24 hours. He has had however increased creatinine from 1.4 up to 2.9. A team was called this morning with another hypotensive episode. Heart rates continue to be in the low 100s to 130s. Remains in atrial flutter with variable conduction. Lactic acid has been normal. He has been somewhat more confused recently. He was feeling lightheaded previously during the hypotensive episode and had some chest discomfort. 03/04 Patient seen and examined. Patient transferred to ICU briefly placed on the Levophed and given additional IV fluid bolus yesterday with some improvement in blood pressure. Still has been borderline blood pressures and briefly off of norepinephrine however currently back on 0.01. Denies any chest pain or pressure. Admits to some lower abdominal mild pain. Denies any shortness breath. Still appears mildly confused. Creatinine somewhat improved 2.9-2.5. Lasix was decreased to once a day. 03/05 Patient seen and examined. Denies any chest pain or pressure. He was more confused overnight requiring temporary restraints. Neurology consulted with recommendations of changing psychiatric medications. Cr improved today. Off and on low dose vasopressors. Procalcitonin mildly elevated. Echo performed with EF 40-45% with small pericardial effusion however no mention of any tamponade physiology. Off and on Aflutter with RVR HR's 90-120's 03/06 Patient seen and examined. Patient states overall he is feeling better. He was having confusion and aggression yesterday requiring some held all however this has improved over last 24 hours. Telemetry reveals continued atrial flutter with heart rates 90s to low 100s. Creatinine again improved to 1.2 today. 03/07 Patient seen and examined. Patient continues be more alert and denies any issues. Still on low-dose of norepinephrine and patient was started on Midrin yesterday. Cr improved to 1.1. Patient was placed on IV fluids. 03/08 Patient seen and examined. Patient had increased episode of agitation requiring Haldol yesterday. He has been on the sotalol however no prolongation his QT noted this morning. He remains confused and aggressive this morning. Blood pressures have remained or line and he has been off of the norepinephrine since yesterday. Remains in atrial flutter with relatively controlled rates. 03/11/2022 Patient examined this morning at the bedside. His been moved out of the ICU to the telemetry unit. Patient denies chest pain or pressure. Denies SOB. Telemetry reveals atrial flutter with heart rate in the 70s. Vital signs are stable. He is on room air with oxygen saturations greater than 92%. He is anticoagulated with Xarelto 03/12/2022 Patient examined this morning at the bedside. Patient denies SOB. Denies chest pain or pressure. He continues to have lower extremity edema. He remains on oral lasix. Telemetry reveals aflutter with controlled ventricular rates. 03/13/2022: This patient is admitted to the hospital with atypical fibrillation and combined CHF. Yesterday patient was initiated on Aldactone 25 mg. He is diuresed well and his edema is much better. He is feeling good. Patient also had a metabolic encephalopathy which seemed to gradually improving. His lungs are clear. Heart is irregular. Patient can continue current medical therapy and increase activity. Patient is still having generalized weakness. Follow-up with his own culinary worker upon discharge. Close monitoring of electrolytes. His creatinine is up to 1.3 today. Potassium is within normal range 03/14/2022 Patient examined this morning at the bedside. Patient denies chest pain or pressure. He denies shortness of breath. He reports improvement in his lower extremity edema. Labs this morning are currently pending. 03/15/2022 Patient examined this morning at the bedside. Patient denies shortness of breath. Denies chest pain or pressure. Potassium yesterday 4.0. BUN 29. Creatinine 1.22. Vital signs are stable. 03/16 Patient seen and examined. Patient denies any chest pain or pressure. He states his breathing is clear. He states he wants to go home. Still having some confusion. Still has his chronic lower extremity edema. Blood pressures have continued to be borderline. PHYSICAL EXAMINATION Vital signs reviewed. CONSTITUTIONAL: No apparent distress HEENT: Head is normocephalic. Pupils are equal, round. Sclerae anicteric. Mucous membranes of the mouth are moist. No JVD. No carotid bruit. CHEST EXAMINATION: Diminished at bases, No chest wall tenderness is noted on palpation or with deep breathing. HEART EXAMINATION: Irregular rhythm. S1, S2 heard. No murmurs, gallops or rub. EXTREMITIES: 2+ peripheral pulses, 2+ lower extremity edema and no calf tenderness. ASSESSMENT 1. Acute on chronic heart failure, systolic 2. Atrial flutter with RVR 3. Initial hypertensive emergency with blood pressure 200s over 130s improved, now hypotensive may be medication effect 4. Acute on chronic kidney injury 5. Medical noncompliance, patient recently ran out of numerous medications 6. Paroxysmal atrial fibrillation 7. Non-STEMI, likely type II mechanism related to hypoxia, hypertension, heart failure. Reported normal heart catheterization previously 8. Hypotension, rule out sepsis versus cardiogenic shock versus medication effect line 9. Lower extremity edema suspect component of chronic venous insufficiency 9. Small localized pericardial effusion, no tamponade PLAN Continue current cardiac medications Continue anticoagulation with Xarelto Continue telemetry monitoring Patient is stable from a cardiac standpoint. He is to follow up outpatient with his primary culinary worker Objective - Vital Signs Vital signs: Vital Signs Temp 97.3 F L 03/16/22 08:00 Pulse 91 03/16/22 08:00 Resp 16 03/16/22 08:00 BP 98/65 03/16/22 08:00 Pulse Ox 92 L 03/16/22 08:00 FiO2 30 03/10/22 03:25 Intake & Output 03/15/22 03/16/22 03/16/22 18:59 06:59 18:59 Intake Total 240 Balance 240 Weight 147.6 kg Intake: Oral 240 Other: Voiding Method Toilet # Voids 2 2 1 # Bowel Movements 1 - Labs CBC & Chem 7: 03/11/22 07:28 03/14/22 09:44
[2022-03-16] MEDS: HALOPERIDOL LACTATE 5 MG/ML 1 ML VIAL IVP PRN ×2 (15:40→21:48)
[2022-03-16] MEDS: LORazepam 2 MG/ML INJ IV PRN (15:41)
--- NOTE | 2022-03-16 16:25 | PN ---
PROGRESS NOTE CHIEF COMPLAINT: Congestive heart failure, cardiomyopathy. HISTORY OF PRESENT ILLNESS: This gentleman indicated that he was going to sign out AGAINST MEDICAL ADVICE. When I received this notice, I stated that he could not be discharged due to his debility. He is not safe to be home. His son came and recognized this and also refused to take him. He then became more delirious and belligerent and became quite hostile and aggressive. Haldol was ordered, but he was refusing to take it and Security had to be called. He was given the Haldol and then placed in bed with restraints. Laboratory studies have been ordered as well as a psych consult. On physical examination, his chest is clear. Cardiac exam is unchanged. The patient does have a psych history. There could be other issues going on, and laboratory studies have been ordered. MMODL / IJN: [id number] /
[2022-03-16 17:44] LABS: Anisocytosis Slight; Basophils # (A) 0.1 k/uL (0-0.2); Basophils % (A) 2 %; Eosinophils # (A) 0.3 k/uL (0-0.7); Eosinophils % (A) 4 %; HCT 33.1 % (39.0-53.0); HGB 9.9 gm/dL (13.0-17.5); Hypochromasia Moderate; Lymphocytes % (A) 15 %; MCH 26.6 pg (25.0-35.0); MCHC 29.9 g/dL (31.0-37.0); MCV 89.1 fL (80.0-100.0); Mean Platelet Volume 7.9; Monocytes # (A) 0.5 k/uL (0-1.0); Monocytes % (A) 8 %; Neutrophils # (A) 4.7 k/uL (1.3-7.7); Neutrophils % (A) 70 %; Platelet Count 285 k/uL (150-450); RBC 3.71 m/uL (4.30-5.90); RDW 16.3 % (11.5-15.5); WBC 6.7 k/uL (3.8-10.6)
[2022-03-16 17:53] LABS: Albumin 2.9 g/dL (3.5-5.0); Calcium 8.3 mg/dL (8.4-10.2); Magnesium 2.1 mg/dL (1.6-2.3); Potassium 3.9 mmol/L (3.5-5.1); Total Bilirubin 0.5 mg/dL (0.2-1.3); Total Protein 5.7 g/dL (6.3-8.2)
[2022-03-16] MEDS: RIVAROXABAN 20 MG TAB PO SCH (18:36)
--- NOTE | 2022-03-16 19:25 | XR ---
EXAMINATION TYPE: XR chest 1V DATE OF EXAM: 03/16/2022 COMPARISON: 03/10/2022 HISTORY: Short of breath TECHNIQUE: Single view FINDINGS: Heart is borderline enlarged. There is prominent vascular congestion. Bony thorax is intact . There are chest leads. IMPRESSION: There is pulmonary congestion slightly increased compared to old exam. Mild heart failure is possible.
[2022-03-17] MEDS: METOPROLOL TARTRATE 25 MG TAB PO SCH ×2 (07:55→20:32)
[2022-03-17] MEDS: lamoTRIgine 100 MG TAB PO SCH ×2 (07:55→20:32)
[2022-03-17] MEDS: ALPRAZolam 0.5 MG TAB PO SCH ×3 (07:55→20:33)
[2022-03-17] MEDS: ASPIRIN 81 MG PO SCH (07:55)
[2022-03-17] MEDS: PREGABALIN 75 MG CAP PO SCH ×3 (07:55→20:33)
[2022-03-17] MEDS: FUROSEMIDE 20 MG TAB PO SCH ×2 (07:55→16:36)
[2022-03-17] MEDS: LEVOTHYROXINE 25 MCG TAB PO SCH (07:55)
[2022-03-17] MEDS: MIDODRINE 5 MG TAB PO SCH ×3 (07:55→16:36)
[2022-03-17] MEDS: SPIRONOLACTONE 25 MG TAB PO SCH (07:55)
[2022-03-17] MEDS: ATORVASTATIN 20 MG TAB PO SCH (07:55)
[2022-03-17] MEDS: DULoxetine HCL 60 MG CAPSULE.DR PO SCH (07:56)
[2022-03-17] MEDS: ARIPiprazole 10 MG TAB PO SCH (07:56)
[2022-03-17] MEDS: OXYBUTYNIN 10 MG TAB.ER.24 PO SCH ×2 (07:56→20:32)
[2022-03-17] MEDS: buPROPion XL 150 MG TAB.ER.24H PO SCH (07:56)
[2022-03-17] MEDS: SOTALOL 80 MG TAB PO SCH ×2 (07:56→20:32)
[2022-03-17] MEDS: FOLIC ACID 1 MG TAB PO SCH (07:56)
[2022-03-17] MEDS: HALOPERIDOL LACTATE 5 MG/ML 1 ML VIAL IVP PRN (08:10)
[2022-03-17 08:16] LABS: Glucose,Whole Blood 87 mg/dL (75-99)
[2022-03-17] MEDS: FLUTICASONE 110 MCG INHALER INHALATION SCH ×2 (08:38→20:29)
[2022-03-17 09:35] LABS: Allen Test Performed? Yes
[2022-03-17 09:37] LABS: ABG Base Excess 11.1 mmol/L; ABG Oxygen Saturation 96.5 % (94-97); ABG PH 7.42 (7.35-7.45); ABG PO2 88 mmHg (83-108)
[2022-03-17 09:43] LABS: ABG HCO3 36 mmol/L (21-25); ABG PCO2 55 mmHg (35-45); ABG TCO2 37 mmol/L (19-24)
--- NOTE | 2022-03-17 10:47 | P.PN ---
Subjective HISTORY OF PRESENTING ILLNESS Patient is a pleasant 77-year-old male with history of hypertension, hyperlipidemia, obesity, atrial fibrillation who presents secondary to worsening dyspnea over the last 3-4 weeks. He states he normally follows with Dr. Kraft from [facility]. He was scheduled to get an echo done however had a last minute trip to [place] and therefore went to [place] instead. He admits he was running out of his medications and thought he could get some of the medications in [place]. Therefore he has been out of number of his medications including his blood pressure meds as well as sotalol. Since coming back he has had pr ogressive dyspnea with 6 pillow orthopnea and increased lower extremity edema and therefore eventually had respiratory distress and EMS was called and patient found to be hypoxic in the 70s. Initial EKG read out as sinus rhythm, sinus tachycardia 130 bpm however has persistently been tachycardic at 1:30 without any variation. Appears concerning for atrial flutter with RVR. He was having significant chest pain and pressure yesterday when he was in respiratory distress however currently improved. He states he had a heart catheterization 5 years ago secondary to abnormal stress test and was told that his coronary arteries are "wide open". Initial lactic acid 4.3, total bilirubin 1.7, tropo juan carlos 0.16, 0.2, proBNP 18,900, TSH 5.1, creatinine 1.37 with baseline appearing to be 1.0 from December, white blood cell count 10.1. Initial blood pressure was in the 200s over 130 range however restarted on prior medications and better controlled. He states he is feeling somewhat better currently however still continued dyspnea and lower extremity edema. Denies any further chest pain. 03/03 Patient seen and examined. Patient denies any chest pain or pressure. He was started on Cardizem drip yesterday secondary to atrial flutter with RVR however became hypotensive. He did have good urine output with approximately -4 L more or less 24 hours. He has had however increased creatinine from 1.4 up to 2.9. A team was called this morning with another hypotensive episode. Heart rates continue to be in the low 100s to 130s. Remains in atrial flutter with variable conduction. Lactic acid has been normal. He has been somewhat more confused recently. He was feeling lightheaded previously during the hypotensive episode and had some chest discomfort. 03/04 Patient seen and examined. Patient transferred to ICU briefly placed on the Levophed and given additional IV fluid bolus yesterday with some improvement in blood pressure. Still has been borderline blood pressures and briefly off of norepinephrine however currently back on 0.01. Denies any chest pain or pressure. Admits to some lower abdominal mild pain. Denies any shortness breath. Still appears mildly confused. Creatinine somewhat improved 2.9-2.5. Lasix was decreased to once a day. 03/05 Patient seen and examined. Denies any chest pain or pressure. He was more confused overnight requiring temporary restraints. Neurology consulted with recommendations of changing psychiatric medications. Cr improved today. Off and on low dose vasopressors. Procalcitonin mildly elevated. Echo performed with EF 40-45% with small pericardial effusion however no mention of any tamponade physiology. Off and on Aflutter with RVR HR's 90-120's 03/06 Patient seen and examined. Patient states overall he is feeling better. He was having confusion and aggression yesterday requiring some held all however this has improved over last 24 hours. Telemetry reveals continued atrial flutter with heart rates 90s to low 100s. Creatinine again improved to 1.2 today. 03/07 Patient seen and examined. Patient continues be more alert and denies any issues. Still on low-dose of norepinephrine and patient was started on Midrin yesterday. Cr improved to 1.1. Patient was placed on IV fluids. 03/08 Patient seen and examined. Patient had increased episode of agitation requiring Haldol yesterday. He has been on the sotalol however no prolongation his QT noted this morning. He remains confused and aggressive this morning. Blood pressures have remained or line and he has been off of the norepinephrine since yesterday. Remains in atrial flutter with relatively controlled rates. 03/11/2022 Patient examined this morning at the bedside. His been moved out of the ICU to the telemetry unit. Patient denies chest pain or pressure. Denies SOB. Telemetry reveals atrial flutter with heart rate in the 70s. Vital signs are stable. He is on room air with oxygen saturations greater than 92%. He is anticoagulated with Xarelto 03/12/2022 Patient examined this morning at the bedside. Patient denies SOB. Denies chest pain or pressure. He continues to have lower extremity edema. He remains on oral lasix. Telemetry reveals aflutter with controlled ventricular rates. 03/13/2022: This patient is admitted to the hospital with atypical fibrillation and combined CHF. Yesterday patient was initiated on Aldactone 25 mg. He is diuresed well and his edema is much better. He is feeling good. Patient also had a metabolic encephalopathy which seemed to gradually improving. His lungs are clear. Heart is irregular. Patient can continue current medical therapy and increase activity. Patient is still having generalized weakness. 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 Close monitoring of electrolytes. His creatinine is up to 1.3 today. Potassium is within normal range 03/14/2022 Patient examined this morning at the bedside. Patient denies chest pain or pressure. He denies shortness of breath. He reports improvement in his lower extremity edema. Labs this morning are currently pending. 03/15/2022 Patient examined this morning at the bedside. Patient denies shortness of breath. Denies chest pain or pressure. Potassium yesterday 4.0. BUN 29. Creatinine 1.22. Vital signs are stable. 03/16 Patient seen and examined. Patient denies any chest pain or pressure. He states his breathing is clear. He states he wants to go home. Still having some confusion. Still has his chronic lower extremity edema. Blood pressures have continued to be borderline. Patient seen and examined. 18 was called this morning secondary to agitation with patient requiring Haldol and currently in restraints. Currently somnolent however appears comfortable. The pressures stable, 120/89 heart rates stable at 66. PHYSICAL EXAMINATION Vital signs reviewed. CONSTITUTIONAL: No apparent distress, somnolent HEENT: Head is normocephalic. Pupils are equal, round. Sclerae anicteric. Mucous membranes of the mouth are moist. No JVD. No carotid bruit. CHEST EXAMINATION: Diminished at bases, No chest wall tenderness is noted on palpation or with deep breathing. HEART EXAMINATION: Irregular rhythm. S1, S2 heard. No murmurs, gallops or rub. EXTREMITIES: 2+ peripheral pulses, 2+ lower extremity edema and no calf tenderness. ASSESSMENT 1. Acute on chronic heart failure, systolic 2. Atrial flutter currently CVR 3. Initial hypertensive emergency with blood pressure 200s over 130s improved, now hypotensive may be medication effect 4. Acute on chronic kidney injury 5. Medical noncompliance, patient recently ran out of numerous medications 6. Paroxysmal atrial fibrillation 7. Non-STEMI, likely type II mechanism related to hypoxia, hypertension, heart failure. Reported normal heart catheterization previously 8. Hypotension, rule out sepsis versus cardiogenic shock versus medication effect line 9. Lower extremity edema suspect component of chronic venous insufficiency 9. Small localized pericardial effusion, no tamponade PLAN Continue current cardiac medications Continue anticoagulation with Xarelto Continue telemetry monitoring Patient is stable from a cardiac standpoint. He is to follow up outpatient with his primary hotel reservation agent Current issues mainly revolve around psychiatric issues and altererd mental status. Objective - Vital Signs Vital signs: Vital Signs Temp 98.6 F 03/17/22 04:00 Pulse 66 03/17/22 04:00 Resp 12 03/17/22 04:00 BP 120/89 03/17/22 04:00 Pulse Ox 98 03/17/22 04:00 FiO2 30 03/10/22 03:25 Intake & Output 03/16/22 03/17/22 03/17/22 18:59 06:59 18:59 Output Total 0 Balance 0 Weight 173.5 kg Output: Urine 0 Post Void Residual 0 Other: Voiding Method Bedside Commode Urinal # Voids 3 - Labs CBC & Chem 7: 03/16/22 17:27 03/16/22 17:27 Labs: Abnormal Lab Results - Last 24 Hours (Table) 03/16/22 03/16/22 03/17/22 Range/Units 17:27 17:27 09:22 RBC 3.71 L (4.30-5.90) m/uL Hgb 9.9 L (13.0-17.5) gm/dL Hct 33.1 L (39.0-53.0) % MCHC 29.9 L (31.0-37.0) g/dL RDW 16.3 H (11.5-15.5) % ABG pCO2 55 H (35-45) mmHg ABG HCO3 36 H (21-25) mmol/L ABG Total CO2 37 H (19-24) mmol/L Sodium 136 L (137-145) mmol/L Carbon Dioxide 33 H (22-30) mmol/L BUN 32 H (9-20) mg/dL Calcium 8.3 L (8.4-10.2) mg/dL Total Protein 5.7 L (6.3-8.2) g/dL Albumin 2.9 L (3.5-5.0) g/dL
[2022-03-17] MEDS: LORazepam 2 MG/ML INJ IV PRN (11:28)
[2022-03-17] MEDS: RIVAROXABAN 20 MG TAB PO SCH (16:36)
[2022-03-18] MEDS: MIDODRINE 5 MG TAB PO SCH ×3 (06:12→16:42)
[2022-03-18] MEDS: LEVOTHYROXINE 25 MCG TAB PO SCH (06:12)
[2022-03-18] MEDS: FLUTICASONE 110 MCG INHALER INHALATION SCH ×2 (07:33→20:18)
[2022-03-18] MEDS: ALPRAZolam 0.5 MG TAB PO SCH ×4 (10:46→20:53)
[2022-03-18] MEDS: ASPIRIN 81 MG PO SCH (10:46)
[2022-03-18] MEDS: SOTALOL 80 MG TAB PO SCH ×2 (10:47→20:53)
[2022-03-18] MEDS: PREGABALIN 75 MG CAP PO SCH ×3 (10:47→20:52)
[2022-03-18] MEDS: ARIPiprazole 10 MG TAB PO SCH (10:47)
--- NOTE | 2022-03-18 12:12 | P.PN ---
Subjective HISTORY OF PRESENTING ILLNESS Patient is a pleasant 77-year-old male with history of hypertension, hyperlipidemia, obesity, atrial fibrillation who presents secondary to worsening dyspnea over the last 3-4 weeks. He states he normally follows with Dr. Kraft from [facility]. He was scheduled to get an echo done however had a last minute trip to [place] and therefore went to [place] instead. He admits he was running out of his medications and thought he could get some of the medications in [place]. Therefore he has been out of number of his medications including his blood pressure meds as well as sotalol. Since coming back he has had pr ogressive dyspnea with 6 pillow orthopnea and increased lower extremity edema and therefore eventually had respiratory distress and EMS was called and patient found to be hypoxic in the 70s. Initial EKG read out as sinus rhythm, sinus tachycardia 130 bpm however has persistently been tachycardic at 1:30 without any variation. Appears concerning for atrial flutter with RVR. He was having significant chest pain and pressure yesterday when he was in respiratory distress however currently improved. He states he had a heart catheterization 5 years ago secondary to abnormal stress test and was told that his coronary arteries are "wide open". Initial lactic acid 4.3, total bilirubin 1.7, tropo juan carlos 0.16, 0.2, proBNP 18,900, TSH 5.1, creatinine 1.37 with baseline appearing to be 1.0 from December, white blood cell count 10.1. Initial blood pressure was in the 200s over 130 range however restarted on prior medications and better controlled. He states he is feeling somewhat better currently however still continued dyspnea and lower extremity edema. Denies any further chest pain. 03/03 Patient seen and examined. Patient denies any chest pain or pressure. He was started on Cardizem drip yesterday secondary to atrial flutter with RVR however became hypotensive. He did have good urine output with approximately -4 L more or less 24 hours. He has had however increased creatinine from 1.4 up to 2.9. A team was called this morning with another hypotensive episode. Heart rates continue to be in the low 100s to 130s. Remains in atrial flutter with variable conduction. Lactic acid has been normal. He has been somewhat more confused recently. He was feeling lightheaded previously during the hypotensive episode and had some chest discomfort. 03/04 Patient seen and examined. Patient transferred to ICU briefly placed on the Levophed and given additional IV fluid bolus yesterday with some improvement in blood pressure. Still has been borderline blood pressures and briefly off of norepinephrine however currently back on 0.01. Denies any chest pain or pressure. Admits to some lower abdominal mild pain. Denies any shortness breath. Still appears mildly confused. Creatinine somewhat improved 2.9-2.5. Lasix was decreased to once a day. 03/05 Patient seen and examined. Denies any chest pain or pressure. He was more confused overnight requiring temporary restraints. Neurology consulted with recommendations of changing psychiatric medications. Cr improved today. Off and on low dose vasopressors. Procalcitonin mildly elevated. Echo performed with EF 40-45% with small pericardial effusion however no mention of any tamponade physiology. Off and on Aflutter with RVR HR's 90-120's 03/06 Patient seen and examined. Patient states overall he is feeling better. He was having confusion and aggression yesterday requiring some held all however this has improved over last 24 hours. Telemetry reveals continued atrial flutter with heart rates 90s to low 100s. Creatinine again improved to 1.2 today. 03/07 Patient seen and examined. Patient continues be more alert and denies any issues. Still on low-dose of norepinephrine and patient was started on Midrin yesterday. Cr improved to 1.1. Patient was placed on IV fluids. 03/08 Patient seen and examined. Patient had increased episode of agitation requiring Haldol yesterday. He has been on the sotalol however no prolongation his QT noted this morning. He remains confused and aggressive this morning. Blood pressures have remained or line and he has been off of the norepinephrine since yesterday. Remains in atrial flutter with relatively controlled rates. 03/11/2022 Patient examined this morning at the bedside. His been moved out of the ICU to the telemetry unit. Patient denies chest pain or pressure. Denies SOB. Telemetry reveals atrial flutter with heart rate in the 70s. Vital signs are stable. He is on room air with oxygen saturations greater than 92%. He is anticoagulated with Xarelto 03/12/2022 Patient examined this morning at the bedside. Patient denies SOB. Denies chest pain or pressure. He continues to have lower extremity edema. He remains on oral lasix. Telemetry reveals aflutter with controlled ventricular rates. 03/13/2022: This patient is admitted to the hospital with atypical fibrillation and combined CHF. Yesterday patient was initiated on Aldactone 25 mg. He is diuresed well and his edema is much better. He is feeling good. Patient also had a metabolic encephalopathy which seemed to gradually improving. His lungs are clear. Heart is irregular. Patient can continue current medical therapy and increase activity. Patient is still having generalized weakness. Follow-up with his own puzzle assembler upon discharge. Close monitoring of electrolytes. His creatinine is up to 1.3 today. Potassium is within normal range 03/14/2022 Patient examined this morning at the bedside. Patient denies chest pain or pressure. He denies shortness of breath. He reports improvement in his lower extremity edema. Labs this morning are currently pending. 03/15/2022 Patient examined this morning at the bedside. Patient denies shortness of breath. Denies chest pain or pressure. Potassium yesterday 4.0. BUN 29. Creatinine 1.22. Vital signs are stable. 03/16 Patient seen and examined. Patient denies any chest pain or pressure. He states his breathing is clear. He states he wants to go home. Still having some confusion. Still has his chronic lower extremity edema. Blood pressures have continued to be borderline. 03/17 Patient seen and examined. A team was called this morning secondary to agitation with patient requiring Haldol and currently in restraints. Currently somnolent however appears comfortable. The pressures stable, 120/89 heart rates stable at 66. 03/18 Patient seen and examined. He denies any chest pain or pressure. Appears more alert today. Still in soft restraints. Denies any shortness breath and able lie flat on his back. Still does have 2+ lower extremity edema. PHYSICAL EXAMINATION Vital signs reviewed. CONSTITUTIONAL: No apparent distress, somnolent HEENT: Head is normocephalic. Pupils are equal, round. Sclerae anicteric. Mucous membranes of the mouth are moist. No JVD. No carotid bruit. CHEST EXAMINATION: Diminished at bases, No chest wall tenderness is noted on palpation or with deep breathing. HEART EXAMINATION: Irregular rhythm. S1, S2 heard. No murmurs, gallops or rub. EXTREMITIES: 2+ peripheral pulses, 2+ lower extremity edema and no calf tenderness. ASSESSMENT 1. Acute on chronic heart failure, systolic 2. Atrial flutter currently CVR 3. Initial hypertensive emergency with blood pressure 200s over 130s improved, now hypotensive may be medication effect 4. Acute on chronic kidney injury 5. Medical noncompliance, patient recently ran out of numerous medications 6. Paroxysmal atrial fibrillation 7. Non-STEMI, likely type II mechanism related to hypoxia, hypertension, heart failure. Reported normal heart catheterization previously 8. Hypotension, rule out sepsis versus cardiogenic shock versus medication effect line 9. Lower extremity edema suspect component of chronic venous insufficiency 9. Small localized pericardial effusion, no tamponade PLAN Continue current cardiac medications Continue anticoagulation with Xarelto Continue telemetry monitoring Patient is stable from a cardiac standpoint. He is to follow up outpatient with his primary puzzle assembler Current issues mainly revolve around psychiatric issues and altererd mental status. Check labs today. Objective - Vital Signs Vital signs: Vital Signs Temp 98.4 F 03/18/22 11:57 Pulse 122 H 03/18/22 11:57 Resp 18 03/18/22 11:57 BP 132/94 03/18/22 11:57 Pulse Ox 95 03/18/22 11:57 FiO2 30 03/10/22 03:25 Intake & Output 03/17/22 03/18/22 03/18/22 18:59 06:59 18:59 Intake Total 250 120 Output Total 500 Balance -250 120 Intake: Oral 250 120 Output: Urine 500 Other: Voiding Method External Catheter # Voids 2 - Labs CBC & Chem 7: 03/16/22 17:27 03/16/22 17:27
[2022-03-18 12:57] LABS: Anisocytosis Slight; Basophils # (A) 0.1 k/uL (0-0.2); Basophils % (A) 1 %; Eosinophils # (A) 0.2 k/uL (0-0.7); Eosinophils % (A) 2 %; HCT 37.8 % (39.0-53.0); HGB 11.6 gm/dL (13.0-17.5); Hypochromasia Moderate; Lymphocytes # (A) 0.7 k/uL (1.0-4.8); Lymphocytes % (A) 9 %; MCH 27.3 pg (25.0-35.0); MCHC 30.6 g/dL (31.0-37.0); MCV 89.4 fL (80.0-100.0); Mean Platelet Volume 7.7; Monocytes # (A) 0.4 k/uL (0-1.0); Monocytes % (A) 6 %; Neutrophils # (A) 5.9 k/uL (1.3-7.7); Neutrophils % (A) 81 %; Platelet Count 319 k/uL (150-450); RBC 4.23 m/uL (4.30-5.90); RDW 16.2 % (11.5-15.5); WBC 7.2 k/uL (3.8-10.6)
[2022-03-18 13:06] LABS: Albumin 3.3 g/dL (3.5-5.0); Calcium 8.8 mg/dL (8.4-10.2); Phosphorus 3.5 mg/dL (2.5-4.5); Potassium 4.1 mmol/L (3.5-5.1)
[2022-03-18] MEDS: FUROSEMIDE 20 MG TAB PO SCH ×2 (14:59→15:47)
[2022-03-18] MEDS: lamoTRIgine 100 MG TAB PO SCH ×2 (15:00→20:52)
[2022-03-18] MEDS: buPROPion XL 150 MG TAB.ER.24H PO SCH (15:00)
[2022-03-18] MEDS: DULoxetine HCL 60 MG CAPSULE.DR PO SCH (15:00)
[2022-03-18] MEDS: METOPROLOL TARTRATE 25 MG TAB PO SCH ×2 (15:00→20:53)
[2022-03-18] MEDS: SPIRONOLACTONE 25 MG TAB PO SCH (15:00)
[2022-03-18] MEDS: ATORVASTATIN 20 MG TAB PO SCH (15:00)
[2022-03-18] MEDS: OXYBUTYNIN 10 MG TAB.ER.24 PO SCH ×2 (15:01→20:53)
[2022-03-18] MEDS: RIVAROXABAN 20 MG TAB PO SCH (17:21)
[2022-03-18] MEDS: FOLIC ACID 1 MG TAB PO SCH (17:21)
--- NOTE | 2022-03-18 18:16 | PN ---
PROGRESS NOTE DATE OF SERVICE: 03/17/2022 CHIEF COMPLAINT: Congestive heart failure and pulmonary edema from cardiomyopathy along with delirium and agitation. HISTORY OF PRESENT ILLNESS: This gentleman is still extremely agitated and combative. He has been striking out at the staff. He is currently restrained again. He is to be seen by Psychiatry. He is receiving Haldol and Ativan, which seem to help with sedation. REVIEW OF SYSTEMS: He is confused, inappropriate, agitated and hostile. PHYSICAL EXAMINATION: Exam is normal as well as can be performed. Chest is fairly clear. Cardiac exam is normal. IMPRESSION: 1. Acute congestive heart failure and pulmonary edema. 2. Cardiomyopathy. 3. Coronary artery disease. 4. Acute psychosis with delirium, paranoia and confusion. PLAN: 1. Continue with sedation and restraints as necessary. 2. Await psychiatric evaluation. 3. He is cleared by Cardiology. MMHORACE / LYNDSEY: [id number] /
--- NOTE | 2022-03-18 18:21 | PN ---
PROGRESS NOTE DATE OF SERVICE: 03/18/2022 CHIEF COMPLAINT: Agitation and delirium. HISTORY OF PRESENT ILLNESS: This gentleman is much better. He still has a flat affect, but he is more alert and he is much less hostile and aggressive. PHYSICAL EXAMINATION: His vital signs are normal. His chest is clear. Cardiac exam is normal. The abdomen is soft and nontender. IMPRESSION: 1. Delirium with agitation. 2. Probable encephalopathy. 3. Acute congestive heart failure and pulmonary edema. 4. Cardiomyopathy. 5. History of personality disorder. PLAN: 1. Await psychiatric evaluation and management. 2. Try to increase activity and remove restraints as possible. MMODL / IJN: [id number] /
[2022-03-18] MEDS: ALBUTEROL NEBULIZED 2.5 MG/3 ML INHALATION PRN (20:17)
[2022-03-19] MEDS: ALBUTEROL NEBULIZED 2.5 MG/3 ML INHALATION PRN ×2 (00:45→04:32)
[2022-03-19] MEDS: METOPROLOL TARTRATE 25 MG TAB PO SCH (03:37)
[2022-03-19 03:40] LABS: Glucose,Whole Blood 132 mg/dL (75-99)
[2022-03-19] MEDS: SOTALOL 80 MG TAB PO SCH ×3 (04:06→21:47)
[2022-03-19] MEDS ORDERED: DILTIAZEM DRIP BOLUS FROM BAG 1 MG SOLN IV ONE (04:17)
[2022-03-19] MEDS ORDERED: FUROSEMIDE 10 MG/ML 10 ML VIAL IV STA (04:17)
[2022-03-19] MEDS ORDERED: DILTIAZEM 125 MG in SODIUM CHLORIDE 0.9% 100 ML IV SCH (04:30)
[2022-03-19 04:33] LABS: ABG Base Excess 3.8 mmol/L; ABG HCO3 28 mmol/L (21-25); ABG Oxygen Saturation 92.4 % (94-97); ABG PCO2 44 mmHg (35-45); ABG PH 7.42 (7.35-7.45); ABG PO2 67 mmHg (83-108); ABG TCO2 30 mmol/L (19-24); Allen Test Performed? Yes
[2022-03-19] MEDS: MIDODRINE 5 MG TAB PO SCH ×2 (05:16→11:25)
[2022-03-19 05:33] LABS: Anisocytosis Slight; Basophils # (A) 0.1 k/uL (0-0.2); Basophils % (A) 1 %; Eosinophils # (A) 0.1 k/uL (0-0.7); Eosinophils % (A) 1 %; HCT 44.6 % (39.0-53.0); HGB 13.1 gm/dL (13.0-17.5); Hypochromasia Moderate; Lymphocytes # (A) 0.8 k/uL (1.0-4.8); Lymphocytes % (A) 5 %; MCH 26.5 pg (25.0-35.0); MCHC 29.4 g/dL (31.0-37.0); Mean Platelet Volume 8.2; Monocytes # (A) 0.8 k/uL (0-1.0); Monocytes % (A) 5 %; Neutrophils # (A) 13.7 k/uL (1.3-7.7); Neutrophils % (A) 88 %; Platelet Count 452 k/uL (150-450); RBC 4.95 m/uL (4.30-5.90); WBC 15.6 k/uL (3.8-10.6)
[2022-03-19 05:46] LABS: Albumin 3.8 g/dL (3.5-5.0); Calcium 9.3 mg/dL (8.4-10.2); Magnesium 1.9 mg/dL (1.6-2.3); Potassium 4.2 mmol/L (3.5-5.1); Total Bilirubin 1.2 mg/dL (0.2-1.3); Total Protein 7.1 g/dL (6.3-8.2)
[2022-03-19] MEDS: LEVOTHYROXINE 25 MCG TAB PO SCH (06:17)
[2022-03-19] MEDS: FLUTICASONE 110 MCG INHALER INHALATION SCH ×2 (07:54→20:37)
[2022-03-19] MEDS ORDERED: ACETAMINOPHEN TAB 325 MG TAB PO PRN (08:09)
[2022-03-19] MEDS: lamoTRIgine 100 MG TAB PO SCH ×2 (08:54→21:47)
[2022-03-19] MEDS: ATORVASTATIN 20 MG TAB PO SCH (08:54)
[2022-03-19] MEDS: ASPIRIN 81 MG PO SCH (08:54)
[2022-03-19] MEDS ORDERED: bisacodyL 5 MG TABLET.DR PO PRN (09:04)
[2022-03-19] MEDS ORDERED: FUROSEMIDE 10 MG/ML 4 ML VIAL IV SCH (09:15)
--- NOTE | 2022-03-19 09:49 | XR ---
EXAMINATION TYPE: XR chest 1V portable DATE OF EXAM: 03/19/2022 COMPARISON: Chest x-ray 03/16/2022 HISTORY: Shortness of breath TECHNIQUE: frontal view of the chest is obtained on 2 images. FINDINGS: There is improvement in aeration, no pneumothorax is evident. Persistent basilar density n oted, this blunting the left costophrenic angle greater than right. The cardiac silhouette size is st able. Technique is apical lordotic, there is a spinal curvature, patient is rotated The osseous stru ctures are intact. IMPRESSION: Bilateral pleural effusions and associated atelectasis, there may be some improvement in patient's volume status
--- NOTE | 2022-03-19 09:56 | CT ---
EXAMINATION TYPE: CT chest angio for PE DATE OF EXAM: 03/19/2022 COMPARISON: Chest x-ray earlier today HISTORY: Chest pain. CT DLP: 984 mGycm. Automated Exposure Control for Dose Reduction was Utilized. CONTRAST: CTA scan of the thorax is performed with IV Contrast, patient injected with 80ml mL of Isovue 370, pu lmonary embolism protocol. MIP Images are created on CT scanner and reviewed. FINDINGS: LUNGS: Small to moderate-sized bilateral pleural effusions are confirmed. There is associated ekta sive atelectasis in the lower lungs. Upper lung groundglass opacities or mild to moderate alveolar ed rosey bilaterally. No pneumothorax seen. MEDIASTINUM: There is slightly suboptimal study with heterogeneity but no CT evidence for acute pulmo nary embolism. Enlarged main pulmonary artery of 3.7 cm axial image 60 is consistent with underlying pulmonary artery hypertension. Somewhat small size thyroid gland is seen. There are no greater than 1 cm hilar or mediastinal lymph nodes. Heart size upper limits of normal. Small Pericardial effusion is seen. OTHER: Subareolar flame-shaped gynecomastia bilaterally is seen. Peripheral 1.4 cm low dense lesion i n the inferior right hepatic lobe favoring benign thin-walled cyst axial image 156. [id number] e multilevel spurring in the spine with underlying scoliotic curvature. IMPRESSION: No CT evidence for acute pulmonary embolism. Correlate for CHF exacerbation versus fluid overload state as there is mild to moderate bilateral central pulmonary edema and small to moderate-s ized bilateral pleural effusions.
[2022-03-19] MEDS: ALPRAZolam 0.5 MG TAB PO SCH ×3 (11:25→21:47)
[2022-03-19] MEDS ORDERED: VANCOMYCIN IV PER PHARMACY 1 EACH MISC MISCELLANE PRN (12:16)
[2022-03-19] MEDS: PREGABALIN 75 MG CAP PO SCH ×3 (12:22→21:47)
[2022-03-19] MEDS: DULoxetine HCL 60 MG CAPSULE.DR PO SCH (12:23)
[2022-03-19] MEDS: PANTOPRAZOLE 40 MG TABLET PO SCH ×2 (12:23→17:54)
[2022-03-19] MEDS: ARIPiprazole 10 MG TAB PO SCH (12:24)
[2022-03-19] MEDS: buPROPion XL 150 MG TAB.ER.24H PO SCH (12:24)
[2022-03-19] MEDS: SPIRONOLACTONE 25 MG TAB PO SCH (12:24)
[2022-03-19] MEDS ORDERED: VANCOMYCIN 2,500 MG in SODIUM CHLORIDE 0.9% 500 ML 500 ML IVPB ONE (13:00)
--- NOTE | 2022-03-19 13:08 | PN ---
PROGRESS NOTE DATE OF SERVICE: 03/19/2022 CHIEF COMPLAINT: Congestive heart failure. HISTORY OF PRESENT ILLNESS: During the night, this gentleman suddenly became acutely dyspneic, diaphoretic, and his blood pressure elevated. He denied chest pain, cough, hemoptysis, etc. Went into atrial fibrillation with a response rate of around 150. Appropriate laboratory studies started and he was started on Cardizem. PHYSICAL EXAM: He is oriented and alert. He denies chest pain. He still has decreased breath sounds bilaterally with scattered rales and rhonchi. Cardiac exam demonstrates atrial fibrillation. His rate slowed to around 100. Abdomen is protuberant, soft and nontender. Bowel sounds are present. IMPRESSION: 1. Acute congestive heart failure. 2. Chronic congestive heart failure. 3. Cardiomyopathy. 4. Coronary artery disease. 5. Atrial fibrillation/flutter. 6. Fever, undetermined origin. PLAN: 1. Await for labs to be returns. 2. Repeat blood culture. 3. Because he was running a temp this morning of 100, a Rolon catheter will be placed and urine sent for UA and culture. 4. Infectious Disease consult. 5. Cardiology will reassess given his new development of recurrent heart failure and supraventricular tachycardia. MMODL / IJN: [id number] /
[2022-03-19] MEDS: FUROSEMIDE 20 MG TAB PO SCH (15:49)
[2022-03-19] MEDS: LOSARTAN 25 MG TAB PO SCH (16:15)
[2022-03-19] MEDS: METOPROLOL TARTRATE 50 MG TAB PO SCH ×2 (16:15→21:47)
--- NOTE | 2022-03-19 16:38 | PN ---
PROGRESS NOTE Mr. Bustos is in atrial fibrillation, controlled rate. He has nonischemic cardiomyopathy. He had slightly faster rate, was placed on a Cardizem drip. I am asking that we decrease sotalol to 40 mg b.i.d., increase metoprolol, add losartan, discontinue IV Cardizem, increase activity and plan for discharge soon. Vitals are stable. No JVD. S1-S2 are normally. Regular rhythm noted. Short systolic murmur noted. Lungs reveal diminished air entry. Abdomen and lower extremity exam is unchanged. MMODL / IJN: [id number] /
[2022-03-19] MEDS: FOLIC ACID 1 MG TAB PO SCH (17:18)
[2022-03-19] MEDS: OXYBUTYNIN 10 MG TAB.ER.24 PO SCH ×2 (17:18→21:47)
[2022-03-19] MEDS: RIVAROXABAN 20 MG TAB PO SCH (17:54)
[2022-03-19] MEDS ORDERED: METOPROLOL TARTRATE 25 MG TAB PO SCH (21:00)
--- NOTE | 2022-03-19 22:45 | P.CONS ---
History of Present Illness - Reason for Consult Consult date: 03/19/22 - History of Present Illness Patient is a 76-year old male who presented to the hospital about 18 days ago on 03/01/2022 for evaluation of increasing shortness of breath which was going on for about 2 to 3 days before presentation to the hospital patient was noticed to be hypoxic and has been treated by cardiology and pulmonary services and has been treated with acute respiratory failure secondary to acute on ch ronic systolic heart failure the patient has been afebrile throughout his hospital stay however he was noticed to have low-grade fever 100 F this morning, also noticed to have white count which is up to 15.6 today with a left shift, patient was complaining of shortness of breath since yesterday more than usual for him patient denies having any chest pain did have minimal dry cough no sputum production patient denies having any nausea no vomiting no abdominal pain no diarrhea patient currently denies having any burning or frequency of urine and do not have any Rolon catheter patient do have 2 midline on his left arm currently denies any symptoms referable to it patient did have a CT angiogram of the chest completed this morning no evidence of PE correlate for CHF exacerbation versus fluid overload Past Medical History Past Medical History: Atrial Fibrillation, COPD, Hypertension, Osteoarthritis (OA), Sleep Apnea/CPAP/BIPAP Additional Past Medical History / Comment(s): 03/09/15 Pt presented to [facility] via EMS. He was suppose to have a colonoscopy today but when they hooked him up to EKG he was in Afib. Other HX: 01/28/15 seen in [facility] ER after a fall and subsequent. Pt has hx of prostate cancer with prostatectomy. Neuropathy, Cardiac cath, History of Any Multi-Drug Resistant Organisms: None Reported Past Surgical History: Back Surgery, Joint Replacement Additional Past Surgical History / Comment(s): (B) hip replecement, (B)knee replacement, laminectomy x6, prostatectomy. Past Anesthesia/Blood Transfusion Reactions: No Reported Reaction Additional Past Anesthesia/Blood Transfusion Reaction / Comm: Pt has never recieved blood. Past Psychological History: Depression Additional Psychological History / Comment(s): Pt takes med for depression and is seen by a psychiatrist. He feels his depression is under control. He lives with family. He is independent. He drives a car. Smoking Status: Never smoker Past Alcohol Use History: Occasional Past Drug Use History: None Reported - Past Family History Father Family Medical History: Congestive Heart Failure (CHF), Hypertension, Myocardial Infarction (OR) Additional Family Medical History / Comment(s): Father of a OR at age 89 yrs. Mother Family Medical History: Cancer Additional Family Medical History / Comment(s): Mother had multiple myeloma. She at age 68 yrs. Medications and Allergies Home Medications Medication Instructions Recorded Confirmed Type DULoxetine HCL [Cymbalta] 120 mg PO DAILY 01/28/15 03/01/22 History lamoTRIgine [LaMICtal] 150 mg PO BID 01/28/15 03/01/22 History ALPRAZolam [Xanax] 1 mg PO TID 03/01/22 03/01/22 History ARIPiprazole [Abilify] 10 - 20 mg PO DAILY 03/01/22 03/01/22 History Albuterol Sulfate [Proair Hfa] 1 puff INHALATION RT-Q4H PRN 03/01/22 03/01/22 History Atorvastatin [Lipitor] 20 mg PO DAILY 03/01/22 03/01/22 History Beclomethasone Dip 80 Mcg/Puff 1 puff INHALATION RT-BID 03/01/22 03/01/22 History [Qvar 80 mcg] Ergocalciferol [Vitamin D2 (1250 1,250 mcg PO Q7D 03/01/22 03/01/22 History Mcg = 54517 Iu)] Levothyroxine Sodium 25 mcg PO DAILY 03/01/22 03/01/22 History Losartan Potassium 100 mg PO DAILY 03/01/22 03/01/22 History Oxybutynin Chloride [Ditropan XL] 10 mg PO BID 03/01/22 03/01/22 History Pregabalin [Lyrica] 150 mg PO TID 03/01/22 03/01/22 History Rivaroxaban [Xarelto] 20 mg PO W/SUPPER 03/01/22 03/01/22 History Sotalol [Betapace] 80 mg PO BID 03/01/22 03/01/22 History buPROPion HCL [Wellbutrin XL] 300 mg PO DAILY 03/01/22 03/01/22 History oxyCODONE HCL [oxyCODONE HCL (IR)] 15 mg PO Q4-6H PRN 03/01/22 03/01/22 History Allergies Allergy/AdvReac Type Severity Reaction Status Date / Time No Known Allergies Allergy Verified 03/01/22 14:32 Physical Exam Vitals: Vital Signs Temp Pulse Pulse Resp BP BP Pulse Ox 03/19/22 07:55 95 03/19/22 07:34 100.0 F H 103 H 19 127/90 96 03/19/22 06:39 131/96 03/19/22 04:38 122 H 03/19/22 04:32 126 H 03/19/22 03:27 94 L 03/19/22 03:17 119 H 20 187/112 85 L 03/19/22 00:58 122 H 03/19/22 00:46 124 H 03/19/22 00:00 116 H 20 162/96 90 L 03/18/22 20:28 103 H 03/18/22 20:21 102 H 03/18/22 20:00 97.8 F 109 H 16 157/102 92 L 03/18/22 16:00 98.5 F 103 H 19 130/83 93 L 03/18/22 14:00 103 H 19 03/18/22 11:57 98.4 F 122 H 18 132/94 95 Intake and Output 03/18/22 03/19/22 03/19/22 22:59 06:59 14:59 Intake Total 360 485 120 Output Total 1500 1700 Balance 360 1015 -1580 Intake: Oral 360 485 120 Output: Urine 1500 1700 Other: Voiding Method External Catheter External Catheter # Voids 1 Weight 170.5 kg Results CBC & Chem 7: 03/19/22 05:03 03/19/22 05:03 Labs: Abnormal Lab Results - Last 24 Hours (Table) 03/18/22 03/18/22 03/19/22 Range/Units 12:35 12:35 03:38 WBC (3.8-10.6) k/uL RBC 4.23 L (4.30-5.90) m/uL Hgb 11.6 L (13.0-17.5) gm/dL Hct 37.8 L (39.0-53.0) % MCHC 30.6 L (31.0-37.0) g/dL RDW 16.2 H (11.5-15.5) % Plt Count (150-450) k/uL Neutrophils # (1.3-7.7) k/uL Lymphocytes # 0.7 L (1.0-4.8) k/uL D-Dimer (<0.60) mg/L FEU ABG pO2 (83-108) mmHg ABG HCO3 (21-25) mmol/L ABG Total CO2 (19-24) mmol/L ABG O2 Saturation (94-97) % Carbon Dioxide 33 H (22-30) mmol/L BUN 23 H (9-20) mg/dL Glucose 116 H (74-99) mg/dL POC Glucose (mg/dL) 132 H (75-99) mg/dL Troponin I (0.000-0.034) ng/mL Albumin 3.3 L (3.5-5.0) g/dL 03/19/22 03/19/22 03/19/22 Range/Units 04:30 05:03 05:03 WBC 15.6 H (3.8-10.6) k/uL RBC (4.30-5.90) m/uL Hgb (13.0-17.5) gm/dL Hct (39.0-53.0) % MCHC 29.4 L (31.0-37.0) g/dL RDW 16.0 H (11.5-15.5) % Plt Count 452 H (150-450) k/uL Neutrophils # 13.7 H (1.3-7.7) k/uL Lymphocytes # 0.8 L (1.0-4.8) k/uL D-Dimer 2.16 H (<0.60) mg/L FEU ABG pO2 67 L (83-108) mmHg ABG HCO3 28 H (21-25) mmol/L ABG Total CO2 30 H (19-24) mmol/L ABG O2 Saturation 92.4 L (94-97) % Carbon Dioxide (22-30) mmol/L BUN (9-20) mg/dL Glucose (74-99) mg/dL POC Glucose (mg/dL) (75-99) mg/dL Troponin I (0.000-0.034) ng/mL Albumin (3.5-5.0) g/dL 03/19/22 03/19/22 Range/Units 05:03 05:03 WBC (3.8-10.6) k/uL RBC (4.30-5.90) m/uL Hgb (13.0-17.5) gm/dL Hct (39.0-53.0) % MCHC (31.0-37.0) g/dL RDW (11.5-15.5) % Plt Count (150-450) k/uL Neutrophils # (1.3-7.7) k/uL Lymphocytes # (1.0-4.8) k/uL D-Dimer (<0.60) mg/L FEU ABG pO2 (83-108) mmHg ABG HCO3 (21-25) mmol/L ABG Total CO2 (19-24) mmol/L ABG O2 Saturation (94-97) % Carbon Dioxide 31 H (22-30) mmol/L BUN 24 H (9-20) mg/dL Glucose 174 H (74-99) mg/dL POC Glucose (mg/dL) (75-99) mg/dL Troponin I 0.180 H* (0.000-0.034) ng/mL Albumin (3.5-5.0) g/dL Microbiology - Last 24 Hours (Table) 03/17/22 11:22 Blood Culture - Preliminary Blood No Growth after 24 hours Assessment and Plan Plan: 1patient with a low-grade fever elevated white count in this patient has been in the hospital for 18 days now and has been treated for acute on chronic congestive heart failure concerning for fluid overload patient did have a CT angiogram of the chest was negative for PE did not show any consolidation, patient abdominal soft clinical examination no evidence of any cellulitis and no urinary symptoms concern for possibility IV site related. 2we will obtain urine culture to complete the work-up also check a CRP and procalcitonin, RN to discontinue midline if not needed and get a peripheral IV. 3we will empirically add vancomycin pharmacy to dose. We will follow on clinical condition and cultures to further adjust medication if needed Thank you for this consultation will follow this patient along with you Time with Patient: Greater than 30
[2022-03-20 04:25] LABS: Appearance,Urine Clear (Clear); Bilirubin,Urine Negative (Negative); Blood,Urine Negative (Negative); Color,Urine Yellow; Glucose,Urine (UA) Negative (Negative); Ketones,Urine Negative (Negative); Leukocyte Esterase,Urine Negative (Negative); Nitrite,Urine Negative (Negative); Protein,Urine Trace (Negative)
[2022-03-20 04:51] LABS: Specific Gravity,Urine 1.047 (1.001-1.035)
[2022-03-20] MEDS: PANTOPRAZOLE 40 MG TABLET PO SCH ×2 (06:34→17:40)
[2022-03-20] MEDS: LEVOTHYROXINE 25 MCG TAB PO SCH (06:35)
[2022-03-20] MEDS: FLUTICASONE 110 MCG INHALER INHALATION SCH ×2 (08:11→19:44)
[2022-03-20] MEDS: ALPRAZolam 0.5 MG TAB PO SCH ×3 (08:54→20:49)
[2022-03-20] MEDS: FOLIC ACID 1 MG TAB PO SCH (08:54)
[2022-03-20] MEDS: buPROPion XL 150 MG TAB.ER.24H PO SCH (08:55)
[2022-03-20] MEDS: ARIPiprazole 10 MG TAB PO SCH (08:55)
[2022-03-20] MEDS: lamoTRIgine 100 MG TAB PO SCH ×2 (08:55→20:50)
[2022-03-20] MEDS: DULoxetine HCL 60 MG CAPSULE.DR PO SCH (08:56)
[2022-03-20] MEDS: LOSARTAN 25 MG TAB PO SCH (08:56)
[2022-03-20] MEDS: OXYBUTYNIN 10 MG TAB.ER.24 PO SCH ×2 (08:56→20:49)
[2022-03-20] MEDS ORDERED: FUROSEMIDE 10 MG/ML 4 ML VIAL IV SCH (09:00)
[2022-03-20] MEDS: PREGABALIN 75 MG CAP PO SCH ×3 (09:00→20:49)
[2022-03-20] MEDS: SOTALOL 80 MG TAB PO SCH ×2 (09:00→20:49)
[2022-03-20] MEDS: ATORVASTATIN 20 MG TAB PO SCH (09:00)
[2022-03-20] MEDS: METOPROLOL TARTRATE 50 MG TAB PO SCH ×3 (09:00→20:49)
[2022-03-20] MEDS: ASPIRIN 81 MG PO SCH (09:00)
[2022-03-20] MEDS: SPIRONOLACTONE 25 MG TAB PO SCH (09:00)
[2022-03-20] MEDS: VANCOMYCIN 2,500 MG in SODIUM CHLORIDE 0.9% 500 ML 500 ML IVPB SCH (09:01)
--- NOTE | 2022-03-20 12:15 | P.PN ---
Subjective HISTORY OF PRESENTING ILLNESS Patient is a pleasant 77-year-old male with history of hypertension, hyperlipidemia, obesity, paroxysmal atrial fibrillation on Xarelto who presents secondary to worsening dyspnea over the last 3-4 weeks. He states he normally follows with Dr. Kraft from [facility]. We are consulted to see the patient for atrial flutter with RVR. He was initially on Cardizem drip however became hypotensive. On 03/04 Patient transferred to ICU briefly placed on the Levophed and given additional IV fluid bolus yesterday with some improvement in blood pressure. 03/05 Echo performed with EF 40-45% with small pericardial effusion however no mention of any tamponade physiology. 03/13/2022: This patient is admitted to the hospital with atypical fibrillation and combined CHF. Yesterday patient was initiated on Aldactone 25 mg. He is diuresed well and his edema is much better. He is feeling good. Patient also had a metabolic encephalopathy which seemed to gradually improving. 03/20/2022 Patient seen and examined. He denies any chest pain or pressure. Appears more alert today. Denies any shortness breath and able lie flat on his back. Continues to be in atrial flutter with HR 100-110. Edema has slightly improved. Urine output over the past 24 hours 2175mL. Decrease in weight noted. Labs: pending today. Blood cultures NGTD, PHYSICAL EXAMINATION Vital signs reviewed. CONSTITUTIONAL: No apparent distress, somnolent HEENT: Head is normocephalic. Pupils are equal, round. Sclerae anicteric. Mucous membranes of the mouth are moist. No JVD. No carotid bruit. CHEST EXAMINATION: Diminished at bases, No chest wall tenderness is noted on palpation or with deep breathing. HEART EXAMINATION: Irregular rhythm. S1, S2 heard. No murmurs, gallops or rub. EXTREMITIES: 2+ peripheral pulses, 2+ lower extremity edema and no calf tenderness. ASSESSMENT Acute on chronic heart failure with reduced ejection fraction Typical Atrial flutter Initial hypertensive emergency with blood pressure 200s over 130s improved, now hypotensive may be medication effect Acute on chronic kidney injury Medical noncompliance, patient recently ran out of numerous medications Paroxysmal atrial fibrillation on Xarelto Non-STEMI, likely type II mechanism related to hypoxia, hypertension, heart failure. Reported normal heart catheterization previously Hypotension, rule out sepsis versus cardiogenic shock versus medication effect line, improved. Small localized pericardial effusion, no tamponade PLAN Stop IV Lasix Transition to PO Lasix 40mg daily Continue Sotalol 40mg BID Continue metoprolol 50mg TID Continue anticoagulation with Xarelto Continue 12.5mg losartan daily and spironolactone, statin and aspirin Increase activity as tolerated Continue telemetry monitoring Hopefully discharge in the next 48 hours Further recommendations based on clinical course. Nurse practitioner note has been reviewed by physician. Signing provider agrees with the documented findings, assessment, and plan of care. Objective - Vital Signs Vital signs: Vital Signs Temp 97.8 F 03/19/22 11:25 Pulse 106 H 03/19/22 11:25 Resp 26 H 03/19/22 11:25 BP 108/71 03/19/22 11:25 Pulse Ox 96 03/19/22 11:25 FiO2 30 03/10/22 03:25 Intake & Output 03/18/22 03/19/22 03/19/22 18:59 06:59 18:59 Intake Total 840 485 240 Output Total 1500 1700 Balance 840 -1015 -1460 Weight 170.5 kg Intake: Oral 840 485 240 Output: Urine 1500 1700 Other: Voiding Method External Catheter External Catheter # Voids 1 - Labs CBC & Chem 7: 03/19/22 05:03 03/19/22 05:03 Labs: Abnormal Lab Results - Last 24 Hours (Table) 03/19/22 03/19/22 03/19/22 Range/Units 03:38 04:30 05:03 WBC 15.6 H (3.8-10.6) k/uL MCHC 29.4 L (31.0-37.0) g/dL RDW 16.0 H (11.5-15.5) % Plt Count 452 H (150-450) k/uL Neutrophils # 13.7 H (1.3-7.7) k/uL Lymphocytes # 0.8 L (1.0-4.8) k/uL D-Dimer (<0.60) mg/L FEU ABG pO2 67 L (83-108) mmHg ABG HCO3 28 H (21-25) mmol/L ABG Total CO2 30 H (19-24) mmol/L ABG O2 Saturation 92.4 L (94-97) % Carbon Dioxide (22-30) mmol/L BUN (9-20) mg/dL Glucose (74-99) mg/dL POC Glucose (mg/dL) 132 H (75-99) mg/dL Troponin I (0.000-0.034) ng/mL C-Reactive Protein (<1.0) mg/dL 03/19/22 03/19/22 03/19/22 Range/Units 05:03 05:03 05:03 WBC (3.8-10.6) k/uL MCHC (31.0-37.0) g/dL RDW (11.5-15.5) % Plt Count (150-450) k/uL Neutrophils # (1.3-7.7) k/uL Lymphocytes # (1.0-4.8) k/uL D-Dimer 2.16 H (<0.60) mg/L FEU ABG pO2 (83-108) mmHg ABG HCO3 (21-25) mmol/L ABG Total CO2 (19-24) mmol/L ABG O2 Saturation (94-97) % Carbon Dioxide 31 H (22-30) mmol/L BUN 24 H (9-20) mg/dL Glucose 174 H (74-99) mg/dL POC Glucose (mg/dL) (75-99) mg/dL Troponin I 0.180 H* (0.000-0.034) ng/mL C-Reactive Protein (<1.0) mg/dL 03/19/22 Range/Units 05:03 WBC (3.8-10.6) k/uL MCHC (31.0-37.0) g/dL RDW (11.5-15.5) % Plt Count (150-450) k/uL Neutrophils # (1.3-7.7) k/uL Lymphocytes # (1.0-4.8) k/uL D-Dimer (<0.60) mg/L FEU ABG pO2 (83-108) mmHg ABG HCO3 (21-25) mmol/L ABG Total CO2 (19-24) mmol/L ABG O2 Saturation (94-97) % Carbon Dioxide (22-30) mmol/L BUN (9-20) mg/dL Glucose (74-99) mg/dL POC Glucose (mg/dL) (75-99) mg/dL Troponin I (0.000-0.034) ng/mL C-Reactive Protein 3.1 H (<1.0) mg/dL Microbiology - Last 24 Hours (Table) 03/17/22 11:22 Blood Culture - Preliminary Blood No Growth after 24 hours
[2022-03-20] MEDS: RIVAROXABAN 20 MG TAB PO SCH (17:40)
--- NOTE | 2022-03-20 23:16 | P.PN ---
Subjective Progress Note Date: 03/20/22 Principal diagnosis: Fever and leukocytosis Patient is a 76-year-old male presented to the hospital with increasing shortness of breath has been treated for CHF exacerbation, did have a low-grade fever and elevated white count that performed this infectious disease consultation. On today's evaluation that is 03/20/2022 the patient is afebrile, the patient is currently breathing comfortably denies having any chest pain shortness of breath or cough no abdominal pain and was complaining of some urinary difficulty Rolon catheter has been placed and no diarrhea Objective - Vital Signs Vital signs: Vital Signs Temp 98.6 F 03/20/22 04:24 Pulse 103 H 03/20/22 04:24 Resp 18 03/20/22 04:24 BP 96/65 03/20/22 04:24 Pulse Ox 95 03/20/22 08:12 FiO2 30 03/10/22 03:25 Intake & Output 03/19/22 03/20/22 03/20/22 18:59 06:59 18:59 Intake Total 480 620 240 Output Total 1700 475 Balance -1220 145 240 Intake: Intake, IV Titration 500 Amount Vancomycin 2,500 mg In 500 Sodium Chloride 0.9% 500 ml 500 ml @ 167 mls/hr IVPB Q16H [facility] Rx#: [id number] Oral 480 120 240 Output: Urine 1700 475 Other: Voiding Method External Catheter External Catheter # Voids 1 - Exam GENERAL DESCRIPTION: An elderly male lying in bed in no distress RESPIRATORY SYSTEM: Unlabored breathing , decreased breath sounds at bases HEART: S1 S2 regular rate and rhythm , ABDOMEN: Soft , no tenderness EXTREMITIES: No edema feet - Labs CBC & Chem 7: 03/19/22 05:03 03/19/22 05:03 Labs: Abnormal Lab Results - Last 24 Hours (Table) 03/19/22 03/20/22 Range/Units 05:03 04:05 C-Reactive Protein 3.1 H (<1.0) mg/dL Ur Specific [place] 1.047 H (1.001-1.035) Urine Protein Trace H (Negative) Microbiology - Last 24 Hours (Table) 03/19/22 09:48 Blood Culture - Preliminary Blood No Growth after 24 hours 03/17/22 11:22 Blood Culture - Preliminary Blood No Growth after 48 hours Assessment and Plan (1) Fever Current Visit: Yes Status: Acute Code(s): R50.9 - FEVER, UNSPECIFIED SNOMED Code(s): 188129541 Plan: 1patient with a low-grade fever elevated white count in this patient has been in the hospital for 18 days now and has been treated for acute on chronic congestive heart failure concerning for fluid overload patient did have a CT angiogram of the chest was negative for PE did not show any consolidation, patient abdominal soft clinical examination no evidence of any cellulitis and no urinary symptoms concern for possibility IV site related. 2UA was negative,procalcitonin is normal, blood cultures negative 3patient to continue with vancomycin pharmacy to dose while waiting for the culture finalized. Time with Patient: Less than 30
[2022-03-21] MEDS: VANCOMYCIN 2,500 MG in SODIUM CHLORIDE 0.9% 500 ML 500 ML IVPB SCH ×2 (00:03→17:49)
[2022-03-21] MEDS: PANTOPRAZOLE 40 MG TABLET PO SCH ×2 (06:21→16:53)
[2022-03-21] MEDS: LEVOTHYROXINE 25 MCG TAB PO SCH (06:21)
[2022-03-21] MEDS: FLUTICASONE 110 MCG INHALER INHALATION SCH ×2 (08:32→19:39)
[2022-03-21] MEDS: FUROSEMIDE 40 MG TAB PO SCH (09:07)
[2022-03-21] MEDS: ASPIRIN 81 MG PO SCH (09:07)
[2022-03-21] MEDS: SPIRONOLACTONE 25 MG TAB PO SCH (09:07)
[2022-03-21] MEDS: lamoTRIgine 100 MG TAB PO SCH ×2 (09:07→21:07)
[2022-03-21] MEDS: ALPRAZolam 0.5 MG TAB PO SCH ×3 (09:07→21:07)
[2022-03-21] MEDS: ATORVASTATIN 20 MG TAB PO SCH (09:07)
[2022-03-21] MEDS: PREGABALIN 75 MG CAP PO SCH ×3 (09:07→21:07)
[2022-03-21] MEDS: METOPROLOL TARTRATE 50 MG TAB PO SCH ×3 (09:07→21:07)
[2022-03-21] MEDS: DULoxetine HCL 60 MG CAPSULE.DR PO SCH (09:07)
[2022-03-21] MEDS: FOLIC ACID 1 MG TAB PO SCH (09:07)
[2022-03-21] MEDS: LOSARTAN 25 MG TAB PO SCH (09:07)
[2022-03-21] MEDS: OXYBUTYNIN 10 MG TAB.ER.24 PO SCH ×2 (09:08→22:23)
[2022-03-21] MEDS: buPROPion XL 150 MG TAB.ER.24H PO SCH (09:08)
[2022-03-21] MEDS: ARIPiprazole 10 MG TAB PO SCH (09:08)
[2022-03-21 09:53] LABS: Anisocytosis Slight; Basophils # (A) 0.1 k/uL (0-0.2); Basophils % (A) 1 %; Eosinophils # (A) 0.3 k/uL (0-0.7); Eosinophils % (A) 3 %; HCT 40.3 % (39.0-53.0); HGB 12.1 gm/dL (13.0-17.5); Hypochromasia Marked; Lymphocytes # (A) 0.9 k/uL (1.0-4.8); Lymphocytes % (A) 9 %; MCH 27.1 pg (25.0-35.0); MCV 90.2 fL (80.0-100.0); Mean Platelet Volume 7.8; Monocytes # (A) 0.4 k/uL (0-1.0); Monocytes % (A) 4 %; Neutrophils # (A) 8.2 k/uL (1.3-7.7); Neutrophils % (A) 83 %; Platelet Count 320 k/uL (150-450); RBC 4.46 m/uL (4.30-5.90); RDW 16.4 % (11.5-15.5); WBC 9.9 k/uL (3.8-10.6)
[2022-03-21 10:07] LABS: C Reactive Protein 4.2 mg/dL (<1.0); Calcium 8.9 mg/dL (8.4-10.2)
--- NOTE | 2022-03-21 11:28 | MISC ---
MISCELLANOUS REPORT QUERY: Left buttock, not present on admission. MMODL / IJN: [id number] /
--- NOTE | 2022-03-21 11:28 | MISC ---
MISCELLANOUS REPORT QUERY: Stage 2 CKD. MMODL / IJN: [id number] /
--- NOTE | 2022-03-21 12:02 | XR ---
EXAMINATION TYPE: XR chest 2V DATE OF EXAM: 03/21/2022 COMPARISON: 03/19/2022 TECHNIQUE: PA and lateral views submitted. HISTORY: Shortness of breath FINDINGS: The heart is enlarged and there is left perihilar and left lower lobe areas of infiltrate. Tiny pleur al effusions not excluded bilaterally. No pneumothorax. Curvature the spine may be positional. Degene rative changes are seen in the arthropathy of the right shoulder. IMPRESSION: 1. Left lower lobe infiltrate correlate for pneumonia. Small bilateral pleural effusions are suspecte d. Patchy vague left perihilar infiltrate now noted. Correlate clinically.
--- NOTE | 2022-03-21 12:32 | P.PN ---
Subjective HISTORY OF PRESENTING ILLNESS Patient is a pleasant 77-year-old male with history of hypertension, hyperlipidemia, obesity, paroxysmal atrial fibrillation on Xarelto who presents secondary to worsening dyspnea over the last 3-4 weeks. He states he normally follows with Dr. Kraft from [facility]. We are consulted to see the patient for atrial flutter with RVR. He was initially on Cardizem drip however became hypotensive. On 03/04 Patient transferred to ICU briefly placed on the Levophed and given additional IV fluid bolus yesterday with some improvement in blood pressure. 03/05 Echo performed with EF 40-45% with small pericardial effusion however no mention of any tamponade physiology. 03/13/2022: This patient is admitted to the hospital with atypical fibrillation and combined CHF. Yesterday patient was initiated on Aldactone 25 mg. He is diuresed well and his edema is much better. He is feeling good. Patient also had a metabolic encephalopathy which seemed to gradually improving. 03/21/2022 Patient seen and examined. He denies any chest pain or pressure. He is alert and oriented x 3. Denies any shortness breath or chest pain. Continues to be in atrial flutter, rates are better controlled in the 90s. Edema has slightly improved. Labs: Sodium 138, potassium 4.0, BUN 34, serum creatinine 1.0 PHYSICAL EXAMINATION Vital signs reviewed. CONSTITUTIONAL: No apparent distress, somnolent HEENT: Neck Supple. No JVD. No carotid bruit. CHEST EXAMINATION: Diminished at bases, No chest wall tenderness is noted on palpation or with deep breathing. HEART EXAMINATION: Irregular rhythm. S1, S2 heard. No murmurs, gallops or rub. EXTREMITIES: 2+ peripheral pulses, 2+ lower extremity edema and no calf tenderness. ASSESSMENT Acute on chronic heart failure with reduced ejection fraction Typical Atrial flutter Initial hypertensive emergency with blood pressure 200s over 130s improved, now hypotensive may be medication effect Acute on chronic kidney injury Medical noncompliance, patient recently ran out of numerous medications Paroxysmal atrial fibrillation on Xarelto Non-STEMI, likely type II mechanism related to hypoxia, hypertension, heart failure. Reported normal heart catheterization previously Hypotension, rule out sepsis versus cardiogenic shock versus medication effect line, improved. Small localized pericardial effusion, no tamponade PLAN Continue PO Lasix 40mg daily Continue Sotalol 40mg BID Continue metoprolol 50mg TID Continue anticoagulation with Xarelto Continue 12.5mg losartan daily and spironolactone, statin and aspirin Increase activity as tolerated Continue telemetry monitoring From a cardiology perspective patient is stable. Discharge to rehab per primary. Please reach out with any further questions or concerns. Follow up outpatient with Dr. Kraft in 1 week. Nurse practitioner note has been reviewed by physician. Signing provider agrees with the documented findings, assessment, and plan of care. Objective - Vital Signs Vital signs: Vital Signs Temp 97.8 F 03/21/22 12:20 Pulse 89 03/21/22 12:20 Resp 18 03/21/22 12:20 BP 116/74 03/21/22 12:20 Pulse Ox 94 L 03/21/22 12:20 FiO2 30 03/10/22 03:25 Intake & Output 03/20/22 03/21/22 03/21/22 18:59 06:59 18:59 Intake Total 2470 860 Output Total 200 Balance 2470 660 Weight 144.3 kg Intake: Intake, IV Titration 500 500 Amount Vancomycin 2,500 mg In 500 500 Sodium Chloride 0.9% 500 ml 500 ml @ 167 mls/hr IVPB Q16H [facility] Rx#: [id number] Oral 1970 360 Output: Urine 200 Other: Voiding Method External Catheter External Catheter # Voids 1 # Bowel Movements 1 - Labs CBC & Chem 7: 03/21/22 08:46 03/21/22 08:57 Labs: Abnormal Lab Results - Last 24 Hours (Table) 03/21/22 03/21/22 Range/Units 08:46 08:46 Hgb 12.1 L (13.0-17.5) gm/dL MCHC 30.0 L (31.0-37.0) g/dL RDW 16.4 H (11.5-15.5) % Neutrophils # 8.2 H (1.3-7.7) k/uL Lymphocytes # 0.9 L (1.0-4.8) k/uL BUN 34 H (9-20) mg/dL Glucose 109 H (74-99) mg/dL C-Reactive Protein 4.2 H (<1.0) mg/dL Microbiology - Last 24 Hours (Table) 03/19/22 09:48 Blood Culture - Preliminary Blood No Growth after 48 hours 03/17/22 11:22 Blood Culture - Preliminary Blood No Growth after 72 hours
[2022-03-21] MEDS: RIVAROXABAN 20 MG TAB PO SCH (16:53)
[2022-03-21 20:38] LABS: Glucose,Whole Blood 112 mg/dL (75-99)
[2022-03-21] MEDS: SOTALOL 80 MG TAB PO SCH (21:06)
[2022-03-22] MEDS: PANTOPRAZOLE 40 MG TABLET PO SCH ×2 (06:45→10:15)
[2022-03-22] MEDS: LEVOTHYROXINE 25 MCG TAB PO SCH (06:45)
[2022-03-22] MEDS ORDERED: VANCOMYCIN TROUGH DUE 1 EACH MISC MISCELLANE ONE (07:00)
--- NOTE | 2022-03-22 07:22 | P.PN ---
Subjective Progress Note Date: 03/21/22 Principal diagnosis: Fever and leukocytosis Patient is a 76-year-old male presented to the hospital with increasing shortness of breath has been treated for CHF exacerbation, did have a low-grade fever and elevated white count that performed this infectious disease consultation. On today's evaluation that is 03/21/2022 the patient remains to be afebrile, the patient is currently breathing comfortably on room air, the patient denies having any chest pain shortness of breath or cough no abdominal pain and no diarrhea Objective - Vital Signs Vital signs: Vital Signs Temp 97.8 F 03/21/22 12:20 Pulse 89 03/21/22 12:20 Resp 18 03/21/22 12:20 BP 116/74 03/21/22 12:20 Pulse Ox 94 L 03/21/22 12:20 FiO2 30 03/10/22 03:25 Intake & Output 03/20/22 03/21/22 03/21/22 18:59 06:59 18:59 Intake Total 2470 860 Output Total 200 Balance 2470 660 Weight 144.3 kg Intake: Intake, IV Titration 500 500 Amount Vancomycin 2,500 mg In 500 500 Sodium Chloride 0.9% 500 ml 500 ml @ 167 mls/hr IVPB Q16H [facility] Rx#: [id number] Oral 1970 360 Output: Urine 200 Other: Voiding Method External Catheter External Catheter # Voids 1 # Bowel Movements 1 - Exam GENERAL DESCRIPTION: An elderly male lying in bed in no distress RESPIRATORY SYSTEM: Unlabored breathing , decreased breath sounds at bases HEART: S1 S2 regular rate and rhythm , ABDOMEN: Soft , no tenderness EXTREMITIES: No edema feet - Labs CBC & Chem 7: 03/21/22 08:46 03/21/22 08:57 Labs: Abnormal Lab Results - Last 24 Hours (Table) 03/21/22 03/21/22 Range/Units 08:46 08:46 Hgb 12.1 L (13.0-17.5) gm/dL MCHC 30.0 L (31.0-37.0) g/dL RDW 16.4 H (11.5-15.5) % Neutrophils # 8.2 H (1.3-7.7) k/uL Lymphocytes # 0.9 L (1.0-4.8) k/uL BUN 34 H (9-20) mg/dL Glucose 109 H (74-99) mg/dL C-Reactive Protein 4.2 H (<1.0) mg/dL Microbiology - Last 24 Hours (Table) 03/19/22 09:48 Blood Culture - Preliminary Blood No Growth after 48 hours 03/17/22 11:22 Blood Culture - Preliminary Blood No Growth after 72 hours Assessment and Plan (1) Fever Current Visit: Yes Status: Acute Code(s): R50.9 - FEVER, UNSPECIFIED SNOMED Code(s): 597867564 Plan: 1patient with a low-grade fever elevated white count in this patient has been in the hospital for more than 18 days and has been treated for acute on chronic congestive heart failure concerning for fluid overload patient did have a CT angiogram of the chest was negative for PE did not show any consolidation, p atient abdominal soft clinical examination no evidence of any cellulitis and no urinary symptoms concern for possibility IV site related. 2the patient UA was negative,procalcitonin is normal, blood cultures has been negative 3patient to continue with vancomycin pharmacy to dose and possible transition to oral antibiotics on discharge Time with Patient: Less than 30
[2022-03-22] MEDS: FLUTICASONE 110 MCG INHALER INHALATION SCH (08:52)
[2022-03-22] MEDS: ASPIRIN 81 MG PO SCH (10:15)
[2022-03-22] MEDS: OXYBUTYNIN 10 MG TAB.ER.24 PO SCH (10:15)
[2022-03-22] MEDS: SOTALOL 80 MG TAB PO SCH (10:15)
[2022-03-22] MEDS: lamoTRIgine 100 MG TAB PO SCH (10:16)
[2022-03-22] MEDS: buPROPion XL 150 MG TAB.ER.24H PO SCH (10:16)
[2022-03-22] MEDS: FUROSEMIDE 40 MG TAB PO SCH (10:16)
[2022-03-22] MEDS: ARIPiprazole 10 MG TAB PO SCH (10:16)
[2022-03-22] MEDS: PREGABALIN 75 MG CAP PO SCH (10:16)
[2022-03-22] MEDS: LOSARTAN 25 MG TAB PO SCH (10:16)
[2022-03-22] MEDS: SPIRONOLACTONE 25 MG TAB PO SCH (10:16)
[2022-03-22] MEDS: ATORVASTATIN 20 MG TAB PO SCH (10:17)
[2022-03-22] MEDS: FOLIC ACID 1 MG TAB PO SCH (10:17)
[2022-03-22] MEDS: ALPRAZolam 0.5 MG TAB PO SCH (10:17)
[2022-03-22] MEDS: METOPROLOL TARTRATE 50 MG TAB PO SCH ×2 (10:17→18:32)
[2022-03-22] MEDS: DULoxetine HCL 60 MG CAPSULE.DR PO SCH (10:17)
[2022-03-22] MEDS: VANCOMYCIN 2,500 MG in SODIUM CHLORIDE 0.9% 500 ML 500 ML IVPB SCH (10:34)
[2022-03-22 11:27] VITALS: RESP 16
[2022-03-22 12:15] VITALS: BP 98/62; PULSE 77; TEMP 98.1
--- NOTE | 2022-03-22 12:43 | P.CONS ---
History of Present Illness - Chief Complaint Medical debility - History of Present Illness I had the opportunity to see patient for inpatient rehab consultation with regard to medical debility. Patient admitted to [facility] March 01 with shortness of breath and CHF. Seen in consultation by cardiology and notes atrial fibrillation. Seen by Dr. Corona for acute hypoxic respiratory failure. Seen by neurology, Dr. Velez, who notes metabolic encephalopathy with mental status change. Seen by psychiatry, Dr. Foreman who notes ICU psychosis. March [address] Rod for low-grade fever and empirically treat with vancomycin. Chest x-rays followed for left lower lobe infiltrate/pneumonia and pleural effusions. Chest CT negative for PE but consistent with CHF. Head CT with nonspecific white matter and atrophic changes. Has started therapy. PT note today reports supervision for bed mobility, transfer, gait 200 feet with roller walker and patient reports ambulating in the hallway as well. OT reports independent with grooming, supervision for upper dressing, feeding, toileting and toilet trans fers. Minimal assist for lower dressing and bathing. Previous functional history as elicited from patient: 76-year-old right-handed white male who is lives in one form with son and sometimes with daughter. Patient drives but neither his son nor his daughter drive. 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 Patient describes independent and Do cooking, laundry, driving, standing shower and gait with standard cane. PCP Dr. Galarza. Denies tobacco and has occasional drink. Review of Systems Review of systems: ENT: Denies sneezes or discharge. Eyes: Denies discharge or photophobia. Cardiac: Denies chest pain or palpitation. Pulmonary: Improving but at least shortness of breath. Gastrointestinal: Denies nausea, emesis, constipation, diarrhea. Genitourinary: Denies discharge or frequency. Musculoskeletal: Denies muscle or bone aches. Neurologic: At least mild generalized weakness. Endocrine: Denies shakes or sweats. Oncology: Denies cancers. Dermatologic: Denies rash, itching, pruritus. ALLERGY/immunology: Denies sneezes, rashes. Past Medical History Past Medical History: Atrial Fibrillation, COPD, Hypertension, Osteoarthritis (OA), Sleep Apnea/CPAP/BIPAP Additional Past Medical History / Comment(s): 03/09/15 Pt presented to [facility] ER via EMS. He was suppose to have a colonoscopy today but when they hooked him up to EKG he was in Afib. Other HX: 01/28/15 seen in [facility] ER after a fall and subsequent. Pt has hx of prostate cancer with prostatectomy. Neuropathy, Cardiac cath, History of Any Multi-Drug Resistant Organisms: None Reported Past Surgical History: Back Surgery, Joint Replacement Additional Past Surgical History / Comment(s): (B) hip replecement, (B)knee replacement, laminectomy x6, prostatectomy. Past Anesthesia/Blood Transfusion Reactions: No Reported Reaction Additional Past Anesthesia/Blood Transfusion Reaction / Comm: Pt has never recieved blood. Past Psychological History: Depression Additional Psychological History / Comment(s): Pt takes med for depression and is seen by a psychiatrist. He feels his depression is under control. He lives with family. He is independent. He drives a car. Smoking Status: Never smoker Past Alcohol Use History: Occasional Past Drug Use History: None Reported - Past Family History Father Family Medical History: Congestive Heart Failure (CHF), Hypertension, Myocardial Infarction (PR) Additional Family Medical History / Comment(s): Father of a PR at age 89 yrs. Mother Family Medical History: Cancer Additional Family Medical History / Comment(s): Mother had multiple myeloma. She at age 68 yrs. Medications and Allergies Home Medications Medication Instructions Recorded Confirmed Type DULoxetine HCL [Cymbalta] 120 mg PO DAILY 01/28/15 03/01/22 History lamoTRIgine [LaMICtal] 150 mg PO BID 01/28/15 03/01/22 History ALPRAZolam [Xanax] 1 mg PO TID 03/01/22 03/01/22 History ARIPiprazole [Abilify] 10 - 20 mg PO DAILY 03/01/22 03/01/22 History Albuterol Sulfate [Proair Hfa] 1 puff INHALATION RT-Q4H PRN 03/01/22 03/01/22 History Atorvastatin [Lipitor] 20 mg PO DAILY 03/01/22 03/01/22 History Beclomethasone Dip 80 Mcg/Puff 1 puff INHALATION RT-BID 03/01/22 03/01/22 History [Qvar 80 mcg] Ergocalciferol [Vitamin D2 (1250 1,250 mcg PO Q7D 03/01/22 03/01/22 History Mcg = 37186 Iu)] Levothyroxine Sodium 25 mcg PO DAILY 03/01/22 03/01/22 History Losartan Potassium 100 mg PO DAILY 03/01/22 03/01/22 History Oxybutynin Chloride [Ditropan XL] 10 mg PO BID 03/01/22 03/01/22 History Pregabalin [Lyrica] 150 mg PO TID 03/01/22 03/01/22 History Rivaroxaban [Xarelto] 20 mg PO W/SUPPER 03/01/22 03/01/22 History Sotalol [Betapace] 80 mg PO BID 03/01/22 03/01/22 History buPROPion HCL [Wellbutrin XL] 300 mg PO DAILY 03/01/22 03/01/22 History oxyCODONE HCL [oxyCODONE HCL (IR)] 15 mg PO Q4-6H PRN 03/01/22 03/01/22 History Allergies Allergy/AdvReac Type Severity Reaction Status Date / Time No Known Allergies Allergy Verified 03/01/22 14:32 Physical Exam Vitals: Vital Signs Temp Pulse Resp BP BP Pulse Ox 03/22/22 12:15 98.1 F 77 16 98/62 94 L 03/22/22 08:00 97.7 F 78 16 103/68 92 L 03/22/22 04:00 97.8 F 63 14 95/65 92 L 03/22/22 01:37 15 03/21/22 23:44 98.2 F 108 H 15 118/74 95 03/21/22 20:00 97.9 F 93 14 87/60 96 03/21/22 16:55 98.0 F 89 16 90/50 94 L 03/21/22 14:00 89 18 Intake and Output 03/21/22 03/22/22 03/22/22 22:59 06:59 14:59 Intake Total 240 Balance 240 Intake: Oral 240 Other: Voiding Method Toilet Toilet # Voids 1 Weight 143.2 kg Skin: Atrophic, intact. General: Medium to overweight build and comfortable appearance. Head: Normocephalic, atraumatic. Eyes: Symmetric. Pupils equal round. Ears: Symmetric. Hearing within normal limits. Mouth: Clear. Neck: Supple. Carotid without bruit. Cardiac: Regular rate and rhythm. Lungs: Clear anteriorly and posteriorly. Abdomen: Soft active nontender. Overweight. Extremities: Normal tone. At least mild edema lower legs Neurological: Mental status: Alert, cooperative, pleasant. Cranial nerves: Symmetric facial tone and trapezius. Motor: Good active movement all 4 limbs. Sensation: Intact throughout. DTRs: Symmetric and equal throughout. Mobility: Patient reports ambulating in the hallway with 4 wheeled walker and physical therapist today. Results CBC & Chem 7: 03/21/22 08:46 03/22/22 09:00 Labs: Abnormal Lab Results - Last 24 Hours (Table) 03/21/22 Range/Units 20:18 POC Glucose (mg/dL) 112 H (75-99) mg/dL Microbiology - Last 24 Hours (Table) 03/19/22 09:48 Blood Culture - Preliminary Blood No Growth after 72 hours 03/17/22 11:22 Blood Culture - Preliminary Blood No Growth after 96 hours Assessment and Plan (1) Acute on chronic combined systolic and diastolic CHF (congestive heart failure) Current Visit: Yes Status: Acute Code(s): I50.43 - ACUTE ON CHRONIC COMBINED SYSTOLIC AND DIASTOLIC HRT FAIL SNOMED Code(s): 219505818561344 (2) Heart failure Current Visit: Yes Status: Acute Code(s): I50.9 - HEART FAILURE, UNSPECIFIED SNOMED Code(s): 07496773 (3) Metabolic encephalopathy Current Visit: Yes Status: Acute Code(s): G93.41 - METABOLIC ENCEPHALOPATHY SNOMED Code(s): 12520845 (4) New onset atrial fibrillation Current Visit: No Status: Acute Code(s): I48.91 - UNSPECIFIED ATRIAL FIBRILLATION SNOMED Code(s): 80872963 Plan: Comments and plan: At this time patient semi-independent with PT and thus would not qualify for inpatient rehab. Patient reports that he could return to his own home with her brother Jamel's home and receive assistance from brother Jamel or at home from his son and daughter. At this time he is motivated for discharge from hospital and appears to have a reasonable discharge plan. Would recommend ongoing PT and OT and support services.
[2022-03-22] MEDS: RIVAROXABAN 20 MG TAB PO SCH (18:32)
--- NOTE | 2022-03-22 19:14 | PN ---
PROGRESS NOTE DATE OF SERVICE: 03/20/2022 CHIEF COMPLAINT: Congestive heart failure and encephalopathy. HISTORY OF PRESENT ILLNESS: This gentleman is doing fairly well and stable and we are working on fpc placement for rehab. PHYSICAL EXAMINATION: Chest is clear. The cardiac exam is unchanged with atrial fibrillation. Abdomen is protuberant. IMPRESSION: 1. Acute and chronic congestive heart failure. 2. Cardiomyopathy. 3. Coronary artery disease. 4. Anoxic brain injury. PLAN: Await placement for rehab. MMODL / IJN: [id number] /
--- NOTE | 2022-03-22 19:14 | PN ---
PROGRESS NOTE DATE OF SERVICE: 03/21/2022 CHIEF COMPLAINT: Congestive heart failure, cardiomyopathy, delirium and mental status changes. HISTORY OF PRESENT ILLNESS: This gentleman is doing fairly well. He is not having any further trouble with shortness of breath. We are waiting on a facility that he can go to for rehab. He is not happy about this. He has agreed to go on and off, but he is still pushing to go home. It is not safe for him to do so. PHYSICAL EXAMINATION: Breath sounds are diminished with rales bilaterally. Cardiac exam is normal. The abdomen is soft and protuberant. IMPRESSION: 1. Congestive heart failure. 2. Cardiomyopathy. 3. Delirium. 4. Possible anoxic brain injury. PLAN: Continue to work on rehab placement. LINNEA / LYNDSEY: [id number] /
--- NOTE | 2022-03-22 19:18 | DS ---
DISCHARGE SUMMARY CHIEF COMPLAINT: Acute shortness of breath. HISTORY OF PRESENT ILLNESS AND PHYSICAL EXAMINATION: Details of this man's history and physical can be found in the initial workup. LABORATORY STUDIES: While he was in the hospital he had laboratory studies, details of which can be found in the laboratory section of his chart. COURSE IN THE HOSPITAL: After admission he was placed on bedrest and started on intravenous fluids and was diuresed. He had presented with acute pulmonary edema and congestive heart failure. He may have experienced an anoxic event because his mental status changes never did return completely to normal. He was seen and followed by Cardiology. He at one point became extremely agitated, confused and violent. He had to be restrained. He had another event during his hospitalization where he went back into congestive heart failure. Finally efforts were being made to get him into rehab, but he would say he would go and then he would not. He became very combative. He went to sign himself out and went into the bathroom and fell. His son, who was going to take him home, refused to do so. Finally he did sign out AGAINST MEDICAL ADVICE on March 22. He will be followed up as an outpatient. He is at great risk for readmission and falls at home. FINAL DIAGNOSIS: 1. Acute pulmonary edema. 2. Acute on chronic congestive heart failure (systolic and diastolic). 3. Cardiomyopathy. 4. Coronary artery disease. 5. Renal failure. 6. Bipolar disorder. 7. Anoxic encephalopathy. 8. buttock decubitus. OPERATIONS: None. CONSULTATIONS: None. He is improved. MMODL / IJN: [id number] /
[2022-03-23] MEDS ORDERED: VANCOMYCIN 2,000 MG in SODIUM CHLORIDE 0.9% 500 ML 500 ML IVPB SCH (09:00)
== END 2022-03-22 19:08 | disposition left against medical advice (07) | DRG 280 ==
LOC: EC 12:10 → 3SCARD 14:30 → 2SICU 03-03 17:57 → 3SCARD 03-10 14:41
PROVIDERS: ADMIT Family Medicine; ATTEND Family Medicine
PROC: 5A09557 Assistance with Respiratory Ventilation, Greater than 96 Consecutive Hours, Continuous Positive Airway Pressure (ICD-10-PCS; 2022-03-01)
PROC: 3E033XZ Introduction of Vasopressor into Peripheral Vein, Percutaneous Approach (ICD-10-PCS; principal; 2022-03-03)
PROC: 05HF33Z Insertion of Infusion Device into Left Cephalic Vein, Percutaneous Approach (ICD-10-PCS; 2022-03-06)
PROC: 05HC33Z Insertion of Infusion Device into Left Basilic Vein, Percutaneous Approach (ICD-10-PCS; 2022-03-06)
DX: I11.0 Hypertensive heart disease with heart failure (principal); I50.43 Acute on chronic combined systolic (congestive) and diastolic (congestive) heart failure; I21.A1 Myocardial infarction type 2; J96.01 Acute respiratory failure with hypoxia; G92.8 Other toxic encephalopathy; N17.9 Acute kidney failure, unspecified; G93.1 Anoxic brain damage, not elsewhere classified; I31.3 Pericardial effusion (noninflammatory); I48.3 Typical atrial flutter; I16.1 Hypertensive emergency; Z68.41 Body mass index [BMI] 40.0-44.9, adult; J98.11 Atelectasis; F23 Brief psychotic disorder; G21.19 Other drug induced secondary parkinsonism; G60.8 Other hereditary and idiopathic neuropathies; I48.0 Paroxysmal atrial fibrillation; I42.8 Other cardiomyopathies; L89.322 Pressure ulcer of left buttock, stage 2; F31.9 Bipolar disorder, unspecified; J44.9 Chronic obstructive pulmonary disease, unspecified; F60.9 Personality disorder, unspecified; I95.2 Hypotension due to drugs; E66.9 Obesity, unspecified; T50.1X5A Adverse effect of loop [high-ceiling] diuretics, initial encounter; N18.2 Chronic kidney disease, stage 2 (mild); G47.33 Obstructive sleep apnea (adult) (pediatric); E78.5 Hyperlipidemia, unspecified; I25.10 Atherosclerotic heart disease of native coronary artery without angina pectoris; R00.1 Bradycardia, unspecified; I87.2 Venous insufficiency (chronic) (peripheral); T50.916A Underdosing of multiple unspecified drugs, medicaments and biological substances, initial encounter; R50.9 Fever, unspecified; M19.90 Unspecified osteoarthritis, unspecified site; R53.81 Other malaise; Z79.890 Hormone replacement therapy; Z79.01 Long term (current) use of anticoagulants; Z79.899 Other long term (current) drug therapy; Z53.29 Procedure and treatment not carried out because of patient's decision for other reasons; Z78.1 Physical restraint status; Z91.81 History of falling; Z90.79 Acquired absence of other genital organ(s); Z85.46 Personal history of malignant neoplasm of prostate; Z96.643 Presence of artificial hip joint, bilateral; Z96.653 Presence of artificial knee joint, bilateral; Z87.39 Personal history of other diseases of the musculoskeletal system and connective tissue; Z86.73 Personal history of transient ischemic attack (TIA), and cerebral infarction without residual deficits; Z86.74 Personal history of sudden cardiac arrest; Z98.890 Other specified postprocedural states; Z71.3 Dietary counseling and surveillance; W06.XXXA Fall from bed, initial encounter; Y92.230 Patient room in hospital as the place of occurrence of the external cause; Z82.49 Family history of ischemic heart disease and other diseases of the circulatory system; Z80.7 Family history of other malignant neoplasms of lymphoid, hematopoietic and related tissues
CPT/HCPCS: 36410; 36415; 36600; 70450; 71045; 71046; 71275; 76937; 80048; 80053; 80069; 80202; 81003; 82565; 82607; 82746; 82805; 83605; 83735; 83880; 84145; 84439; 84443; 84484; 85025; 85027; 85379; 85610; 85730; 86140; 87040; 93005; 93306; 93308; 94640; 94660; 94760; 96365; 96366; 96375; 96376; 99291

== ENCOUNTER 2022-03-24 22:11 | Inpatient (IN) | payer MEDICARE ==
--- NOTE | 2022-03-24 22:24 | ED ---
SOB HPI - General Stated Complaint: Weakness, Difficulty ambulating Time Seen by Provider: 03/24/22 22:11 Source: patient, EMS, RN notes reviewed, old records reviewed Mode of arrival: EMS Limitations: no limitations - History of Present Illness Initial Comments: 76-year-old male with a history of pulmonary edema on a recent admission cardiomyopathy diastolic and systolic heart failure history of atrial fibrillation hypertension who is back today by EMS with complaints of shortness of breath difficulty ambulating at home. He did contact his physician's office and was instructed to come back to the emergency department. He was discharged 2 days ago at medical advice but failed outpatient treatment. He denies any falls fevers chills nausea vomiting sweats. He was short of breath he has some relief of his inhalers at home. MD Complaint: shortness of breath - Related Data Home Medications Medication Instructions Recorded Confirmed DULoxetine HCL [Cymbalta] 120 mg PO DAILY 01/28/15 03/01/22 lamoTRIgine [LaMICtal] 150 mg PO BID 01/28/15 03/01/22 ALPRAZolam [Xanax] 1 mg PO TID 03/01/22 03/01/22 ARIPiprazole [Abilify] 10 - 20 mg PO DAILY 03/01/22 03/01/22 Albuterol Sulfate [Proair Hfa] 1 puff INHALATION RT-Q4H PRN 03/01/22 03/01/22 Atorvastatin [Lipitor] 20 mg PO DAILY 03/01/22 03/01/22 Beclomethasone Dip 80 Mcg/Puff 1 puff INHALATION RT-BID 03/01/22 03/01/22 [Qvar 80 mcg] Ergocalciferol [Vitamin D2 (1250 1,250 mcg PO Q7D 03/01/22 03/01/22 Mcg = 15260 Iu)] Levothyroxine Sodium 25 mcg PO DAILY 03/01/22 03/01/22 Losartan Potassium 100 mg PO DAILY 03/01/22 03/01/22 Oxybutynin Chloride [Ditropan XL] 10 mg PO BID 03/01/22 03/01/22 Pregabalin [Lyrica] 150 mg PO TID 03/01/22 03/01/22 Rivaroxaban [Xarelto] 20 mg PO W/SUPPER 03/01/22 03/01/22 Sotalol [Betapace] 80 mg PO BID 03/01/22 03/01/22 buPROPion HCL [Wellbutrin XL] 300 mg PO DAILY 03/01/22 03/01/22 oxyCODONE HCL [oxyCODONE HCL (IR)] 15 mg PO Q4-6H PRN 03/01/22 03/01/22 Allergies Allergy/AdvReac Type Severity Reaction Status Date / Time No Known Allergies Allergy Verified 03/24/22 22:21 Review of Systems ROS Statement: Those systems with pertinent positive or pertinent negative responses have been documented in the HPI. ROS Other: All systems not noted in ROS Statement are negative. Past Medical History Past Medical History: Atrial Fibrillation, COPD, Hypertension, Osteoarthritis (OA), Sleep Apnea/CPAP/BIPAP Additional Past Medical History / Comment(s): hx of prostate cancer with prostatectomy. Neuropathy, Cardiac cath History of Any Multi-Drug Resistant Organisms: None Reported Past Surgical History: Back Surgery, Heart Catheterization, Joint Replacement Additional Past Surgical History / Comment(s): (B) hip replecement, (B)knee replacement, laminectomy x6, prostatectomy. Past Anesthesia/Blood Transfusion Reactions: No Reported Reaction Additional Past Anesthesia/Blood Transfusion Reaction / Comment(s): Pt has never recieved blood. Past Psychological History: Depression Smoking Status: Never smoker Past Alcohol Use History: Occasional Past Drug Use History: None Reported - Past Family History Father Family Medical History: Congestive Heart Failure (CHF), Hypertension, Myocardial Infarction (NV) Additional Family Medical History / Comment(s): Father of a NV at age 89 yrs. Mother Family Medical History: Cancer Additional Family Medical History / Comment(s): Mother had multiple myeloma. She at age 68 yrs. General Exam - General Exam Comments Initial Comments: This is a well-developed well-nourished awake alert oriented 4 male Limitations: no limitations General appearance: alert, lethargic Head exam: Present: atraumatic, normocephalic, normal inspection Eye exam: Present: normal appearance, PERRL, EOMI. Absent: scleral icterus, conjunctival injection, periorbital swelling ENT exam: Present: normal exam, mucous membranes moist Neck exam: Present: normal inspection, full ROM, other. Absent: tenderness, m eningismus, lymphadenopathy Respiratory exam: Present: decreased breath sounds. Absent: respiratory distress, wheezes, rales, rhonchi, stridor Cardiovascular Exam: Present: regular rate, normal rhythm, normal heart sounds. Absent: systolic murmur, diastolic murmur, rubs, gallop, clicks GI/Abdominal exam: Present: soft, normal bowel sounds. Absent: distended, tenderness, guarding, rebound, rigid Extremities exam: Present: full ROM, normal capillary refill, pedal edema, other (Some stasis changes noted bilaterally.). Absent: tenderness, joint swelling, calf tenderness Back exam: Present: normal inspection Neurological exam: Present: alert, oriented X3, CN II-XII intact Psychiatric exam: Present: normal affect, normal mood Skin exam: Present: warm, dry, intact, normal color. Absent: rash Course Vital Signs 03/24/22 03/24/22 03/24/22 22:13 22:41 22:47 Temperature 98.4 F Pulse Rate 60 106 H Respiratory 18 20 Rate Blood Pressure 117/84 94/66 O2 Sat by Pulse 98 96 Oximetry Medical Decision Making - Medical Decision Making I did discuss findings with patient patient be admitted for inpatient evaluation treatment of CHF outpatient treatment failure to thrive. Dr. Galarza did call back to the emergency department. - Lab Data Result diagrams: 03/24/22 22:35 03/24/22 22:35 Lab Results 03/24/22 03/24/22 03/24/22 Range/Units 22:35 22:35 22:35 WBC 6.1 (3.8-10.6) k/uL RBC 3.82 L (4.30-5.90) m/uL Hgb 10.0 L D (13.0-17.5) gm/dL Hct 34.2 L (39.0-53.0) % MCV 89.4 (80.0-100.0) fL MCH 26.3 (25.0-35.0) pg MCHC 29.4 L (31.0-37.0) g/dL RDW 15.9 H (11.5-15.5) % Plt Count 298 (150-450) k/uL MPV 7.9 Neutrophils % 77 % Lymphocytes % 11 % Monocytes % 7 % Eosinophils % 3 % Basophils % 1 % Neutrophils # 4.7 (1.3-7.7) k/uL Lymphocytes # 0.7 L (1.0-4.8) k/uL Monocytes # 0.4 (0-1.0) k/uL Eosinophils # 0.2 (0-0.7) k/uL Basophils # 0.1 (0-0.2) k/uL Hypochromasia Moderate PT 13.0 H (9.0-12.0) sec INR 1.2 H (<1.2) APTT 32.5 H (22.0-30.0) sec D-Dimer 1.27 H (<0.60) mg/L FEU Sodium 138 (137-145) mmol/L Potassium 4.2 (3.5-5.1) mmol/L Chloride 103 (98-107) mmol/L Carbon Dioxide 29 (22-30) mmol/L Anion Gap 6 mmol/L BUN 23 H (9-20) mg/dL Creatinine 0.99 (0.66-1.25) mg/dL Est GFR (CKD-EPI)AfAm 86 (>60 ml/min/1.73 sqM) Est GFR (CKD-EPI)NonAf 75 (>60 ml/min/1.73 sqM) Glucose 97 (74-99) mg/dL Plasma Lactic Acid Caden (0.7-2.0) mmol/L Calcium 8.8 (8.4-10.2) mg/dL Magnesium 2.0 (1.6-2.3) mg/dL Total Bilirubin 0.8 (0.2-1.3) mg/dL AST 29 (17-59) U/L ALT 28 (4-49) U/L Alkaline Phosphatase 74 (38-126) U/L Troponin I (0.000-0.034) ng/mL NT-Pro-B Natriuret Pep pg/mL Total Protein 5.8 L (6.3-8.2) g/dL Albumin 3.1 L (3.5-5.0) g/dL 03/24/22 03/24/22 03/24/22 Range/Units 22:35 22:35 22:35 WBC (3.8-10.6) k/uL RBC (4.30-5.90) m/uL Hgb (13.0-17.5) gm/dL Hct (39.0-53.0) % MCV (80.0-100.0) fL MCH (25.0-35.0) pg MCHC (31.0-37.0) g/dL RDW (11.5-15.5) % Plt Count (150-450) k/uL MPV Neutrophils % % Lymphocytes % % Monocytes % % Eosinophils % % Basophils % % Neutrophils # (1.3-7.7) k/uL Lymphocytes # (1.0-4.8) k/uL Monocytes # (0-1.0) k/uL Eosinophils # (0-0.7) k/uL Basophils # (0-0.2) k/uL Hypochromasia PT (9.0-12.0) sec INR (<1.2) APTT (22.0-30.0) sec D-Dimer (<0.60) mg/L FEU Sodium (137-145) mmol/L Potassium (3.5-5.1) mmol/L Chloride (98-107) mmol/L Carbon Dioxide (22-30) mmol/L Anion Gap mmol/L BUN (9-20) mg/dL Creatinine (0.66-1.25) mg/dL Est GFR (CKD-EPI)AfAm (>60 ml/min/1.73 sqM) Est GFR (CKD-EPI)NonAf (>60 ml/min/1.73 sqM) Glucose (74-99) mg/dL Plasma Lactic Acid Caden 1.6 (0.7-2.0) mmol/L Calcium (8.4-10.2) mg/dL Magnesium (1.6-2.3) mg/dL Total Bilirubin (0.2-1.3) mg/dL AST (17-59) U/L ALT (4-49) U/L Alkaline Phosphatase (38-126) U/L Troponin I 0.044 H* (0.000-0.034) ng/mL NT-Pro-B Natriuret Pep 6100 pg/mL Total Protein (6.3-8.2) g/dL Albumin (3.5-5.0) g/dL - EKG Data EKG Comments: Atrial flutter rate 101 QRS duration 112 daily since QTC 395/433 incomplete right bundle-branch block nonspecific ST configuration - Radiology Data Radiology results: report reviewed (Imaging reviewed as well as report evidence of posterior left-sided pleural effusion with pleural reaction), image reviewed Disposition Clinical Impression: Congestive heart failure (CHF), Dyspnea, Elevated troponin I level, Failure to thrive in adult Disposition: ADMITTED IP TO THIS [facility] Condition: Fair Referrals: Enoch Galarza MD [Primary Care Provider] - 1-2 days Decision Date: 03/25/22 Decision Time: 00:10
[2022-03-24 22:52] LABS: Basophils # (A) 0.1 k/uL (0-0.2); Basophils % (A) 1 %; Eosinophils # (A) 0.2 k/uL (0-0.7); Eosinophils % (A) 3 %; HCT 34.2 % (39.0-53.0); Hypochromasia Moderate; Lymphocytes # (A) 0.7 k/uL (1.0-4.8); Lymphocytes % (A) 11 %; MCH 26.3 pg (25.0-35.0); MCHC 29.4 g/dL (31.0-37.0); MCV 89.4 fL (80.0-100.0); Mean Platelet Volume 7.9; Monocytes # (A) 0.4 k/uL (0-1.0); Monocytes % (A) 7 %; Neutrophils # (A) 4.7 k/uL (1.3-7.7); Neutrophils % (A) 77 %; Platelet Count 298 k/uL (150-450); RBC 3.82 m/uL (4.30-5.90); RDW 15.9 % (11.5-15.5); WBC 6.1 k/uL (3.8-10.6)
[2022-03-24 23:02] LABS: INR 1.2 (<1.2); Partial Thromboplastin Time 32.5 sec (22.0-30.0)
[2022-03-24 23:36] LABS: Albumin 3.1 g/dL (3.5-5.0); Calcium 8.8 mg/dL (8.4-10.2); Potassium 4.2 mmol/L (3.5-5.1); Total Bilirubin 0.8 mg/dL (0.2-1.3); Total Protein 5.8 g/dL (6.3-8.2)
--- NOTE | 2022-03-25 00:01 | XR ---
EXAMINATION TYPE: XR chest 2V DATE OF EXAM: 03/24/2022 COMPARISON: 03/21/2022 HISTORY: Short of breath TECHNIQUE: 2 views FINDINGS: Heart is top normal in size. There is no heart failure. There is some blunting of the left costophrenic angle posteriorly. There are chest leads. Bony thorax appears intact. IMPRESSION: Left posterior pleural effusion and pleural reaction without change. No heart failure see n.
[2022-03-25] MEDS: FUROSEMIDE 10 MG/ML 4 ML VIAL IV SCH ×3 (01:41→17:50)
[2022-03-25] MEDS: LEVOTHYROXINE 25 MCG TAB PO SCH (05:44)
[2022-03-25] MEDS ORDERED: ERGOCALCIFEROL 1,250 MCG (50,000 IU) CAPSULE PO SCH (09:00)
[2022-03-25] MEDS ORDERED: SOTALOL 80 MG TAB PO SCH (09:00)
[2022-03-25] MEDS ORDERED: ALPRAZolam 1 MG TAB PO SCH (09:00)
[2022-03-25] MEDS ORDERED: ATORVASTATIN 20 MG TAB PO SCH (09:00)
[2022-03-25] MEDS: SOTALOL 120 MG TAB PO SCH ×2 (09:43→23:49)
[2022-03-25] MEDS: lamoTRIgine 100 MG TAB PO SCH ×2 (09:43→21:32)
[2022-03-25] MEDS: DULoxetine HCL 60 MG CAPSULE.DR PO SCH (09:43)
[2022-03-25] MEDS: PREGABALIN 75 MG CAP PO SCH ×3 (09:44→21:32)
[2022-03-25] MEDS: ARIPiprazole 2 MG TAB PO SCH ×2 (09:44→23:48)
[2022-03-25] MEDS: LOSARTAN 50 MG TAB PO SCH (09:45)
[2022-03-25] MEDS: OXYBUTYNIN 10 MG TAB.ER.24 PO SCH ×2 (09:48→21:31)
[2022-03-25] MEDS: FLUTICASONE 110 MCG INHALER INHALATION SCH ×2 (10:49→20:34)
[2022-03-25] MEDS: buPROPion XL 300 MG TAB.ER.24H PO SCH (10:49)
[2022-03-25 11:23] VITALS: BMI 38.9
[2022-03-25] MEDS: ALPRAZolam 1 MG TAB PO PRN (17:05)
[2022-03-25] MEDS: RIVAROXABAN 20 MG TAB PO SCH (17:06)
--- NOTE | 2022-03-25 19:14 | HP ---
HISTORY AND PHYSICAL CHIEF COMPLAINT: Frequent falling, heart failure and general debility and weakness. HISTORY OF PRESENT ILLNESS: This gentleman signed himself out against medical advice several days ago. It was felt that he would not be able to maintain at home because of his weakness. He called yesterday afternoon that he had fallen several times and at one point had been on the floor for 4 hours before calling EMS to get EMS or the police to get him back in bed. He agreed to go back to the hospital and go for rehab. He denies any increased problems or shortness of breath, chest pain, or any other symptoms related to injury. REVIEW OF SYSTEMS: Otherwise unremarkable. Past medical history, family history, and personal and social histories are all unremarkable and unchanged from his recent discharge. PHYSICAL EXAMINATION: Blood pressure is 121/64 with a pulse of 88, respirations of 32, and he is afebrile. In general he appeared to be overweight and debilitated. He was awake and alert. Head, ears, eyes, nose, mouth and throat were normal. Chest demonstrated scattered rales and rhonchi throughout. Cardiac exam demonstrated what sounded like atrial fibrillation. The abdomen was protuberant, soft and nontender. Extremities were normal. Neurologically, other than being extremely weak and speaking more slowly than normal, he was neurologically unchanged. He is admitted to the hospital with the diagnoses: 1. General debility and frequent falling due to generalized weakness. 2. Cardiomyopathy with chronic congestive heart failure. PLAN: 1. Bedrest. 2. IV fluids. 3. PT/OT and ST and he will be referred for inpatient rehab again. MMODL / IJN: [id number] /
[2022-03-25] MEDS: ALBUTEROL NEBULIZED 2.5 MG/3 ML INHALATION PRN (20:34)
[2022-03-25] MEDS: ATORVASTATIN 20 MG TAB PO SCH (21:31)
[2022-03-26] MEDS: LEVOTHYROXINE 25 MCG TAB PO SCH (07:09)
[2022-03-26] MEDS: FUROSEMIDE 10 MG/ML 4 ML VIAL IV SCH ×2 (07:09→16:26)
[2022-03-26] MEDS: lamoTRIgine 100 MG TAB PO SCH ×2 (08:56→21:07)
[2022-03-26] MEDS: LOSARTAN 50 MG TAB PO SCH (08:56)
[2022-03-26] MEDS: PREGABALIN 75 MG CAP PO SCH ×3 (08:57→21:06)
[2022-03-26] MEDS: DULoxetine HCL 60 MG CAPSULE.DR PO SCH (08:57)
[2022-03-26] MEDS: ARIPiprazole 2 MG TAB PO SCH ×3 (08:58→22:37)
[2022-03-26] MEDS: OXYBUTYNIN 10 MG TAB.ER.24 PO SCH ×2 (08:58→21:07)
[2022-03-26] MEDS: FLUTICASONE 110 MCG INHALER INHALATION SCH ×2 (08:58→20:01)
[2022-03-26] MEDS: SOTALOL 120 MG TAB PO SCH ×2 (08:58→22:36)
[2022-03-26] MEDS: buPROPion XL 300 MG TAB.ER.24H PO SCH (08:59)
--- NOTE | 2022-03-26 13:13 | CDI ---
Documentation Clarification Form Date: 03/26/2022 12:52:13 PM From: Margret Harper RN, CCDS Admit Date: 03/25/2022 12:10:00 AM Patient Name: Carlos Manuel Bustos Visit Number: [id number] Discharge Date: ATTENTION: The Clinical Documentation Specialists (CDI) and [facility] Coding Staff appreciate your assistance in clarifying documentation. Please respond to the clarification below the line at the bottom and electronically sign. The CDI & [facility] Coding staff will review the response and follow-up if needed. Please note: Queries are made part of the Legal Health Record. If you have any questions, please contact the author of this message via ITS. Dr. Enoch Galarza Your patient has the documented diagnosis of unspecified CHF in the H/P on 03/25/22. Additional information regarding the type and acuity of CHF is requested. History/Risk Factors: CHF, pulmonary edema atrial fibrillation, COPD, Hypertension Sleep Apnea/CPAP/BIPAP Clinical Indicators: 76-year-old male with complaints of generalized weakness, shortness of breath, difficulty ambulating at home. 03/25 VS/Pulse OX: 121/72 94 18 94 % RA 03/24 BNP: 6100, Troponin 0.044 03/04/22 Echocardiogram Results: Left ventricular EF is estimated at 40-45 %. Severely increased left ventricular wall thickness. Right ventricle: Mild right ventricular dilation Mild pulmonary hypertension. Mild tricuspid regurgitation. Small pericardial effusion by LV 03/24 Chest X Ray: Left posterior pleural effusion and pleural reaction without change. No heart failure seen. Treatment: Cardiac/Telemetry monitoring Lasix 40 MG IV Q 12 HRS 03/25-03/26 Betapace 120MG PO BID In your professional opinion, can you please clarify the acuity and type of CHF if known? [ ] Acute Systolic & Diastolic Heart Failure [ ] Chronic Systolic & Diastolic Heart Failure [ ] Acute on Chronic Heart Failure Systolic & Diastolic Heart Failure [ ] Other, please specify [ ] Unable to determine (Template Last Revised: November 2020) MTDD
[2022-03-26] MEDS: RIVAROXABAN 20 MG TAB PO SCH (16:26)
[2022-03-26] MEDS: ALBUTEROL NEBULIZED 2.5 MG/3 ML INHALATION PRN (20:01)
[2022-03-26 20:13] LABS: Anisocytosis Slight; Basophils # (A) 0.1 k/uL (0-0.2); Basophils % (A) 1 %; Eosinophils # (A) 0.3 k/uL (0-0.7); Eosinophils % (A) 4 %; HCT 40.5 % (39.0-53.0); HGB 11.9 gm/dL (13.0-17.5); Hypochromasia Moderate; Lymphocytes # (A) 1.5 k/uL (1.0-4.8); Lymphocytes % (A) 19 %; MCH 26.3 pg (25.0-35.0); MCHC 29.4 g/dL (31.0-37.0); MCV 89.6 fL (80.0-100.0); Mean Platelet Volume 7.9; Monocytes # (A) 0.6 k/uL (0-1.0); Monocytes % (A) 8 %; Neutrophils # (A) 5.4 k/uL (1.3-7.7); Neutrophils % (A) 67 %; Platelet Count 395 k/uL (150-450); RBC 4.51 m/uL (4.30-5.90); RDW 16.2 % (11.5-15.5); WBC 8.1 k/uL (3.8-10.6)
[2022-03-26 20:29] LABS: Albumin 3.6 g/dL (3.5-5.0); Calcium 9.3 mg/dL (8.4-10.2); Potassium 4.3 mmol/L (3.5-5.1); Total Bilirubin 0.6 mg/dL (0.2-1.3); Total Protein 6.6 g/dL (6.3-8.2)
--- NOTE | 2022-03-26 20:33 | PN ---
PROGRESS NOTE CHIEF COMPLAINT: Acute on chronic systolic and diastolic congestive heart failure. HISTORY OF PRESENT ILLNESS: This gentleman seems to be doing fairly well but remains very weak. His blood pressure has dropped somewhat today and some of his medications will be decreased. REVIEW OF SYSTEMS: He denies chest pain or shortness of breath. PHYSICAL EXAMINATION: He still seems quite weak. He has decreased breath sounds at the bases. The cardiac exam is unchanged with sinus rhythm. The abdomen is soft and nontender. IMPRESSION: 1. Acute on chronic congestive heart failure. 2. Hypotension. 3. Cardiomyopathy. PLAN: Decrease Cozaar and change his Lasix to 40 mg orally once a day. MMODL / IJN: [id number] /
--- NOTE | 2022-03-26 20:55 | MISC ---
MISCELLANOUS REPORT Acute systolic and diastolic as well as chronic systolic and diastolic, it is both. MMODL / IJN: [id number] /
[2022-03-26] MEDS: ATORVASTATIN 20 MG TAB PO SCH (21:07)
--- NOTE | 2022-03-26 22:04 | XR ---
EXAMINATION TYPE: XR chest 2V DATE OF EXAM: 03/26/2022 COMPARISON: 03/24/2022 HISTORY: Short of breath TECHNIQUE: FINDINGS: Heart is normal. There is some mild interstitial density and linear density left lung base. There is slight blunting of the costophrenic angles. No obvious heart failure. There are chest leads . IMPRESSION: Small pleural effusions. No obvious heart failure. There is improvement in the pulmonary congestion compared to last exam. There is some mild subsegmental atelectasis left lung base.
[2022-03-26] MEDS ORDERED: diazePAM 2 MG TAB PO PRN (22:33)
[2022-03-27] MEDS: LEVOTHYROXINE 25 MCG TAB PO SCH (05:57)
[2022-03-27] MEDS: FLUTICASONE 110 MCG INHALER INHALATION SCH ×2 (08:55→19:28)
[2022-03-27] MEDS ORDERED: LOSARTAN 25 MG TAB PO SCH (09:00)
[2022-03-27] MEDS ORDERED: FUROSEMIDE 40 MG TAB PO SCH (09:00)
[2022-03-27] MEDS: buPROPion XL 300 MG TAB.ER.24H PO SCH (09:36)
[2022-03-27] MEDS: lamoTRIgine 100 MG TAB PO SCH ×2 (09:36→20:29)
[2022-03-27] MEDS: OXYBUTYNIN 10 MG TAB.ER.24 PO SCH (09:36)
[2022-03-27] MEDS: DULoxetine HCL 60 MG CAPSULE.DR PO SCH (09:37)
[2022-03-27] MEDS: ARIPiprazole 2 MG TAB PO SCH ×3 (09:37→20:47)
[2022-03-27] MEDS: PREGABALIN 75 MG CAP PO SCH ×3 (09:37→20:29)
[2022-03-27] MEDS: METOPROLOL TARTRATE 25 MG TAB PO SCH ×2 (09:42→20:29)
[2022-03-27] MEDS: SOTALOL 120 MG TAB PO SCH (10:41)
--- NOTE | 2022-03-27 11:17 | P.PN ---
Progress Note - Text Patient presenting with shortness of breath and difficulty ambulating He was here a few days back and signed out against advice He was found to have a cardio myopathy with atrial flutter with RVR He presents once again with shortness of breath with atrial flutter and low blood pressure He is on metoprolol and sotalol He received 2 mg of IV Lasix for symptoms consistent with pulmonary edema I'll a detailed discussion with him and explained the importance of addressing atrial flutter with radiofrequency ablation as a curative means and a definitive treatment I explained to him the importance of maintaining sinus rhythm in the setting of increased heart failure, pulmonary edema, can't myopathy and persistent atrial flutter I told him I will schedule the procedure for him and get back to him The procedure was scheduled for tomorrow with anesthesia Subsequently I received a call from the nurse practitioner and I spoke to his jin doan on the floor The patient is refusing ablation at this hospital He wants to get this done at [facility] When I spoke to him he stated that he had been to [facility] in the past According to him a A young physician, an army officer in his 20s or 30s saw him He was in normal rhythm at that time No ablation was done and I'm not sure why the decision was made and who actually made it 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
--- NOTE | 2022-03-27 11:36 | P.CRDCN ---
History of Present Illness History of present illness: HISTORY OF PRESENTING ILLNESS Patient is a pleasant 76-year-old male with history of hypertension, hyperlipidemia, obesity, paroxysmal atrial fibrillation on Xarelto. Reported normal heart catheterization previously. Follows with Dr. Kraft from [facility]. Per Patient he has seen an wood heel back liner in [place], 1 year ago for possible A fib ablation postponed due to patient being in sinus rhythm. We are consulted to see the patient for hypotension. Presents secondary to worseni ng dyspnea. Patient states that he left against medical advice in the hospital on 03/22. Since that time he has been progressively short of breath, he contacted his PCP and was instructed to go to the emergency department. He states that he has been compliant with his medication.This admission patient was given IV Lasix 40 mg x 2. He denies any chest pain or shortness of breath. Patient went on 1.1 L urine output. Patient was recently admitted to the hospital on with acute heart failure with an EF of 4045%, typical atrial flutter with RVR, hypertensive emergency. He was initially started on a Cardizem drip at that time but became hypotensive. He was also diuresed with IV Lasix. He was also briefly transferred to the ICU on Levophed and given additional IV fluids for his blood pressure. His hospital stay was also complicated by agitation, aggression and confusion- metabolic encephalopathy and required soft wrist restraints and Haldol. Psychiatry evaluated the patient and confusion related to likely metabolic and softly, ICUpsychosis and polypharmacy. His BP and heart rates improved, his breathing improved. At that time he was on Sotalol 40mg BID, metoprolol 50mg TID, Losartan 12.5mg daily, spironolactone, Lasix 40mg daily PO. He did leave the hospital Against Medical Advice. DIAGNOSTICS * EKG reveals atrial flutter, heart rate 101, nonspecific ST-wave abnormalities. Prior EKG last admission patient also in atrial flutter with heart rate 114 * Telemetry tracings indicate atrial flutter with heart rate in the [id number] * Chest xray small pleural effusions, no heart failure, improved pulmonary congestion.. * Laboratory reviewed, WBC 8.1 mg 1.9, platelets 395, d-dimer 1.27, INR 1.2, sodium 139, potassium 4.3, BUN 33, serum creatinine 0.5, troponin 0.04, proBNP 6100 * Current home medications include Xarelto 20 mg nightly, losartan 100 mg daily, atorvastatin 20 mg daily, Xanax, Abilify, atorvastatin 20 mg daily, Cymbalta, Synthroid, Lyrica, Lamictal, oxycodone, Wellbutrin * Echocardiogram 03/04/2022 revealed EF of 4045% , severe LVH, hypokinesis. limited echo EF 4045%, revealed a small pericardial effusion REVIEW OF SYSTEMS At the time of my exam: CONSTITUTIONAL: Denies fever or chills. CARDIOVASCULAR: Denies chest pain +shortness of breath, orthopnea, PND or palpitations. RESPIRATORY: Denies cough. GASTROINTESTINAL: Denies abdominal pain, diarrhea, constipation, nausea or vomiting. MUSCULOSKELETAL: Denies myalgias. NEUROLOGIC: Denies numbness, tingling, headacbe or weakness. ENDOCRINE: Denies fatigue, weight change, polydipsia or polyurina. GENITOURINARY: Denies burning, hematuria or urgency with micturation. HEMATOLOGIC: Denies history of anemia or bleeding. PHYSICAL EXAMINATION Vitals 95/61, heart rate 114, afebrile, saturation 94% on room air CONSTITUTIONAL: No apparent distress. HEENT: Head is normocephalic. Pupils are equal, round. Sclerae anicteric. Mucous membranes of the mouth are moist. No JVD. No carotid bruit. CHEST EXAMINATION: Lungs are diminsihed to auscultation. No chest wall tenderness is noted on palpation or with deep breathing. HEART EXAMINATION: Irregular tachycardic rate and rhythm. S1, S2 heard. No murmurs, gallops or rub. ABDOMEN: Soft, nontender. Positive bowel sounds. EXTREMITIES: 2+ peripheral pulses, 1+ bilateral lower extremity edema and no calf tenderness. SKIN: warm, dry NEUROLOGIC EXAMINATION: Patient is awake, alert and oriented x3. ASSESSMENT Typical atrial flutter with [id number] score 4, on Xarelto Symptomatic atrial flutter with RVR Acute on chronic heart failure with preserved ejection fraction, borderline 4045% Elevated troponin likely secondary to atrial flutter with RVR Paroxysmal atrial fibrillation Hypertension Dyslipidemia Acute kidney injury History of major depressive disorder Recurrent admissions PLAN -Patient evaluated by Dr. Duran, recommend atrial flutter ablation patient initially agreeable and scheduled for 03/28/2022. -Hold Sotalol, Lasix and Losartan -Start metoprolol 25mg BID -Continue Xarelto -We have discussed the risks, benefits and alternative therapies for atrial flutter ablation and for both sedation/analgesia as well as necessary blood product administration, if indicated, as they pertain to this patient. The patient has indicated understanding and acceptance of the risks and procedures discussed. Questions have been answered appropriately. -Patient is now not agreeable to move forward with the above-stated procedure. He understands the risk of not performing the procedure. -Patient states he would like to be transferred to [facility] for Ablation procedure and does not want to have this procedure done tomorrow with Dr. Duran. -Please reach out with any questions or concerns. Nurse practitioner note has been reviewed by physician. Signing provider agrees with the documented findings, assessment, and plan of care. Past Medical History Past Medical History: Atrial Fibrillation, COPD, Hypertension, Osteoarthritis (OA), Sleep Apnea/CPAP/BIPAP Additional Past Medical History / Comment(s): hx of prostate cancer with prostatectomy. Neuropathy, Cardiac cath History of Any Multi-Drug Resistant Organisms: None Reported Past Surgical History: Back Surgery, Heart Catheterization, Joint Replacement Additional Past Surgical History / Comment(s): (B) hip replecement, (B)knee replacement, laminectomy x6, prostatectomy, spinal cord decompression Past Anesthesia/Blood Transfusion Reactions: No Reported Reaction Additional Past Anesthesia/Blood Transfusion Reaction / Comment(s): Pt has only received own blood donated prior to surgery. Past Psychological History: Depression Additional Psychological History / Comment(s): Pt takes med for depression and is seen by a psychiatrist. He feels his depression is under control. He lives with family. He is independent. He drives a car. Smoking Status: Never smoker Past Alcohol Use History: Occasional Past Drug Use History: None Reported - Past Family History Father Family Medical History: Congestive Heart Failure (CHF), Hypertension, Myocardial Infarction (MT) Additional Family Medical History / Comment(s): Father of a MT at age 89 yrs. Mother Family Medical History: Cancer Additional Family Medical History / Comment(s): Mother had multiple myeloma. Sh e at age 68 yrs. Medications and Allergies Home Medications Medication Instructions Recorded Confirmed Type DULoxetine HCL [Cymbalta] 60 mg PO BID 01/28/15 03/25/22 History lamoTRIgine [LaMICtal] 150 mg PO BID 01/28/15 03/25/22 History ALPRAZolam [Xanax] 1 mg PO TID PRN 03/01/22 03/25/22 History Albuterol Sulfate [Proair Hfa] 1 puff INHALATION RT-Q4H PRN 03/01/22 03/25/22 History Atorvastatin [Lipitor] 20 mg PO DAILY 03/01/22 03/25/22 History Beclomethasone Dip 80 Mcg/Puff 1 puff INHALATION RT-BID 03/01/22 03/25/22 History [Qvar 80 mcg] Ergocalciferol [Vitamin D2 (1250 1,250 mcg PO Q7D 03/01/22 03/25/22 History Mcg = 07710 Iu)] Levothyroxine Sodium 25 mcg PO DAILY 03/01/22 03/25/22 History Losartan Potassium 100 mg PO DAILY PRN 03/01/22 03/25/22 History Oxybutynin Chloride [Ditropan XL] 10 mg PO BID 03/01/22 03/25/22 History Pregabalin [Lyrica] 150 mg PO TID 03/01/22 03/25/22 History Rivaroxaban [Xarelto] 20 mg PO W/SUPPER 03/01/22 03/25/22 History buPROPion HCL [Wellbutrin XL] 300 mg PO DAILY 03/01/22 03/25/22 History oxyCODONE HCL [oxyCODONE HCL (IR)] 15 mg PO Q4-6H PRN 03/01/22 03/25/22 History ARIPiprazole [Abilify] 2 - 4 mg PO BID 03/25/22 03/25/22 History Allergies Allergy/AdvReac Type Severity Reaction Status Date / Time No Known Allergies Allergy Verified 03/25/22 08:44 Physical Exam Vitals: Vital Signs Temp Pulse Pulse Resp BP Pulse Ox 03/27/22 08:37 114 H 20 95/61 94 L 03/27/22 04:00 98.4 F 103 H 19 84/55 93 L 03/27/22 02:00 100 18 03/27/22 00:00 98.0 F 100 18 93/51 93 L 03/26/22 20:13 76 03/26/22 20:02 72 03/26/22 20:00 97.6 F 104 H 18 95/47 93 L 03/26/22 17:34 104 H 16 100/65 03/26/22 16:00 110 H 16 83/49 94 L 03/26/22 12:00 105 H 16 100/62 90 L Intake and Output 03/26/22 03/27/22 03/27/22 22:59 06:59 14:59 Intake Total 122 118 Balance 122 118 Intake: Oral 122 118 Other: Voiding Method Urinal Urinal # Voids 1 Weight 139.8 kg Results 03/26/22 19:52 03/26/22 19:52 Cardiac Enzymes 03/26/22 Range/Units 19:52 AST 31 (17-59) U/L CBC 03/26/22 Range/Units 19:52 WBC 8.1 (3.8-10.6) k/uL RBC 4.51 (4.30-5.90) m/uL Hgb 11.9 L (13.0-17.5) gm/dL Hct 40.5 (39.0-53.0) % Plt Count 395 (150-450) k/uL Comprehensive Metabolic Panel 03/26/22 Range/Units 19:52 Sodium 139 (137-145) mmol/L Potassium 4.3 (3.5-5.1) mmol/L Chloride 97 L (98-107) mmol/L Carbon Dioxide 34 H (22-30) mmol/L BUN 33 H (9-20) mg/dL Creatinine 1.57 H (0.66-1.25) mg/dL Glucose 88 (74-99) mg/dL Calcium 9.3 (8.4-10.2) mg/dL AST 31 (17-59) U/L ALT 31 (4-49) U/L Alkaline Phosphatase 71 (38-126) U/L Total Protein 6.6 (6.3-8.2) g/dL Albumin 3.6 (3.5-5.0) g/dL Current Medications Generic Name Dose Route Start Last Admin Trade Name Freq PRN Reason Stop Dose Admin Albuterol Sulfate 2.5 mg 03/25/22 00:11 03/26/22 20:01 Albuterol Nebulized 2.5 Mg/3 Ml INHALATION 2.5 mg RT-Q4H PRN Administration Shortness Of Breath Alprazolam 1 mg 03/25/22 08:50 03/25/22 17:05 Alprazolam 1 Mg Tab PO 1 mg TID PRN Administration Anxiety Aripiprazole 2 mg 03/25/22 09:00 03/26/22 08:58 Aripiprazole 2 Mg Tab PO 2 mg DAILY FORTINO Administration Aripiprazole 2 - 4 mg 03/25/22 21:00 03/26/22 22:37 Aripiprazole 2 Mg Tab PO 2 mg BID FORTINO Administration Atorvastatin Calcium 20 mg 03/25/22 21:00 03/26/22 21:07 Atorvastatin 20 Mg Tab PO 20 mg HS FORTINO Administration Bupropion HCl 300 mg 03/25/22 09:00 03/26/22 08:59 Bupropion Xl 300 Mg Tab.Er.24h PO 300 mg DAILY FORTINO Administration Diazepam 2 mg 03/26/22 22:33 Diazepam 2 Mg Tab PO TID PRN Insomnia/ANXIETY Duloxetine HCl 120 mg 03/25/22 09:00 03/26/22 08:57 Duloxetine Hcl 60 Mg Capsule.Dr PO 120 mg DAILY FORTINO Administration Ergocalciferol 1,250 mcg 03/25/22 09:00 03/25/22 09:48 Ergocalciferol 1,250 Mcg (50,000 Iu) Capsule PO 1,250 mcg Q7D FORTINO Administration Fluticasone Propionate 1 puff 03/25/22 08:00 03/27/22 08:55 Fluticasone 110 Mcg Inhaler INHALATION 1 puff RT-BID FORTINO Administration Lamotrigine 150 mg 03/25/22 09:00 03/26/22 21:07 Lamotrigine 100 Mg Tab PO 150 mg BID FORTINO Administration Levothyroxine Sodium 25 mcg 03/25/22 06:30 03/27/22 05:57 Levothyroxine 25 Mcg Tab PO 25 mcg DAILY@0630 FORTINO Administration Losartan Potassium 25 mg 03/27/22 09:00 Losartan 25 Mg Tab PO DAILY FORTINO Oxybutynin Chloride 10 mg 03/25/22 09:00 03/26/22 21:07 Oxybutynin 10 Mg Tab.Er.24 PO 10 mg BID FORTINO Administration Oxycodone HCl 15 mg 03/25/22 00:11 03/26/22 22:37 Oxycodone Hcl 5 Mg Tab PO 15 mg Q4H PRN Administration Pain Pregabalin 150 mg 03/25/22 09:00 03/26/22 21:06 Pregabalin 75 Mg Cap PO 150 mg TID FORTINO Administration Rivaroxaban 20 mg 03/25/22 17:30 03/26/22 16:26 Rivaroxaban 20 Mg Tab PO 20 mg W/SUPPER FORTINO Administration Protocol Intake and Output 03/26/22 03/27/22 03/27/22 22:59 06:59 14:59 Intake Total 122 118 Balance 122 118 Intake: Oral 122 118 Other: Voiding Method Urinal Urinal # Voids 1 Weight 139.8 kg 03/26/22 19:52 03/26/22 19:52
--- NOTE | 2022-03-27 14:43 | PN ---
PROGRESS NOTE CHIEF COMPLAINT: Stage IV congestive heart failure and general debility. HISTORY OF PRESENT ILLNESS: This gentleman is about the same. His blood pressure is still low. Cardiology has recommended that he undergo an ablation with hope of correcting his atrial fibrillation and improving his cardiac output. He does not want to have this done and he does not want to have it here. He wants to be transferred either [facility] or [facility]. His storage battery charger (Dr. Kraft) is in [facility]. He was told that this would be an M- tele violation and that we can provide the services here. He has contacted Dr. Kraft and we may get further direction from him. The patient was told that if he should sign out AGAINST MEDICAL ADVICE and then go to another emergency room, he would likely be admitted and his hospital cost at that institution covered. He has also been approved and cleared to go to rehab. PHYSICAL EXAMINATION: Chest demonstrates decreased breath sounds with rales at the bases. Cardiac exam is unchanged. The abdomen is protuberant, soft and nontender. IMPRESSION: Cardiomyopathy with stage IV congestive heart failure, atrial fibrillation and hypotension. PLAN: He will be working on the possibility of getting himself into another hospital. How this works out remains to be seen. MMODL / IJN: [id number] /
[2022-03-27] MEDS: RIVAROXABAN 20 MG TAB PO SCH (16:57)
[2022-03-27] MEDS: ATORVASTATIN 20 MG TAB PO SCH (20:29)
[2022-03-27] MEDS: ALPRAZolam 1 MG TAB PO PRN (20:47)
[2022-03-28 06:05] LABS: Glucose,Whole Blood 103 mg/dL (75-99)
[2022-03-28] MEDS: LEVOTHYROXINE 25 MCG TAB PO SCH (06:47)
[2022-03-28 07:34] LABS: Basophils # (A) 0.1 k/uL (0-0.2); Basophils % (A) 1 %; Eosinophils # (A) 0.4 k/uL (0-0.7); Eosinophils % (A) 5 %; HCT 39.2 % (39.0-53.0); HGB 11.3 gm/dL (13.0-17.5); Hypochromasia Moderate; Lymphocytes # (A) 1.4 k/uL (1.0-4.8); Lymphocytes % (A) 20 %; MCHC 28.8 g/dL (31.0-37.0); Mean Platelet Volume 7.7; Monocytes # (A) 0.6 k/uL (0-1.0); Monocytes % (A) 8 %; Neutrophils # (A) 4.5 k/uL (1.3-7.7); Neutrophils % (A) 63 %; Platelet Count 354 k/uL (150-450); RBC 4.36 m/uL (4.30-5.90); RDW 15.7 % (11.5-15.5); WBC 7.1 k/uL (3.8-10.6)
[2022-03-28 08:02] LABS: Calcium 8.8 mg/dL (8.4-10.2); Potassium 4.1 mmol/L (3.5-5.1)
[2022-03-28] MEDS: FLUTICASONE 110 MCG INHALER INHALATION SCH ×2 (09:03→21:05)
[2022-03-28] MEDS: DULoxetine HCL 60 MG CAPSULE.DR PO SCH (09:39)
[2022-03-28] MEDS: buPROPion XL 300 MG TAB.ER.24H PO SCH (09:40)
[2022-03-28] MEDS: lamoTRIgine 100 MG TAB PO SCH ×2 (09:40→21:21)
[2022-03-28] MEDS: PREGABALIN 75 MG CAP PO SCH ×3 (09:40→21:21)
[2022-03-28] MEDS: METOPROLOL TARTRATE 25 MG TAB PO SCH ×2 (09:40→21:21)
[2022-03-28] MEDS: ARIPiprazole 2 MG TAB PO SCH ×3 (09:40→21:21)
[2022-03-28] MEDS: OXYBUTYNIN 10 MG TAB.ER.24 PO SCH ×2 (09:40→22:20)
[2022-03-28] MEDS: ALPRAZolam 1 MG TAB PO PRN (16:02)
[2022-03-28] MEDS: RIVAROXABAN 20 MG TAB PO SCH (18:09)
--- NOTE | 2022-03-28 20:16 | PN ---
PROGRESS NOTE DATE OF SERVICE: 03/28/2022 CHIEF COMPLAINT: General debility and falling. HISTORY OF PRESENT ILLNESS: Gentleman fell again last night. He is awaiting return call from his marine steamfitter (Dr. Kraft) in [place]. He would like to be under his care. The doctor has not called back in the last 24 hours. He has been approved for rehab. PHYSICAL EXAMINATION: Chest demonstrates poor breath sounds with scattered rales throughout. Cardiac exam is unchanged and the abdomen is protuberant and soft. IMPRESSION: 1. General debility and weakness. 2. Cardiomyopathy. 3. Chronic congestive heart failure. 4. Encephalopathy. PLAN: If he cannot make arrangements for his care to be transferred to his personal marine steamfitter, we will go ahead and put him into the rehab unit for now. If ablation, is, indeed, necessary, this could be postponed. MMDRISSL / LYNDSEY: [id number] /
[2022-03-28] MEDS: ATORVASTATIN 20 MG TAB PO SCH (21:21)
[2022-03-29] MEDS: LEVOTHYROXINE 25 MCG TAB PO SCH (07:02)
[2022-03-29] MEDS: FLUTICASONE 110 MCG INHALER INHALATION SCH (08:31)
[2022-03-29] MEDS: lamoTRIgine 100 MG TAB PO SCH (09:30)
[2022-03-29] MEDS: DULoxetine HCL 60 MG CAPSULE.DR PO SCH (09:30)
[2022-03-29] MEDS: METOPROLOL TARTRATE 25 MG TAB PO SCH (09:30)
[2022-03-29] MEDS: PREGABALIN 75 MG CAP PO SCH (09:30)
[2022-03-29] MEDS: OXYBUTYNIN 10 MG TAB.ER.24 PO SCH (09:32)
[2022-03-29] MEDS: ARIPiprazole 2 MG TAB PO SCH (09:32)
[2022-03-29] MEDS: buPROPion XL 300 MG TAB.ER.24H PO SCH (09:32)
[2022-03-29 10:08] VITALS: RESP 16
--- NOTE | 2022-03-29 11:16 | DS ---
DISCHARGE SUMMARY CHIEF COMPLAINT: Frequent falling, general debility and weakness, encephalopathy, and cardiomyopathy. HISTORY OF PRESENT ILLNESS AND PHYSICAL EXAMINATION: Details of this man's history and physical can be found in the initial workup. LABORATORY STUDIES: While he was in the hospital, he had laboratory studies, details of which can be found in the laboratory section of his chart. COURSE IN THE HOSPITAL: After admission, he was placed on bedrest, started on intravenous fluids and frequent monitoring of his neurologic status and vital signs. He remained very weak in the hospital. It was clear that he had suffered an encephalopathy when he was admitted to the hospital recently in acute pulmonary edema. While in the hospital, he received physical and occupational therapy as well as speech therapy. He was seen by Cardiology because of his atrial fibrillation and hypotension. It was recommended that he undergo an ablation, but he did not want to have it done here. He has a cyanide furnace operator in [place]. He also goes to [facility]. He tried to reach his cyanide furnace operator in [place] (Dr. Kraft) without success. He was finally accepted in the rehab unit and it was felt that he could be discharged and then he will continue to try to make arrangements to receive his cardiac care in [facility] with Dr. Kraft. FINAL DIAGNOSES: 1. General debility and weakness with frequent falling. 2. Acute congestive heart failure. 3. Chronic congestive heart failure. 4. Heart failure with reduced ejection fraction. 5. Cardiomyopathy. 6. Hypotension. 7. Atrial fibrillation. 8. Chronic kidney disease. 9. Anoxic encephalopathy. OPERATIONS: None. CONSULTATION: Cardiology. He is improved. MMODL / IJN: [id number] /
[2022-03-29 11:41] VITALS: BP 104/52; TEMP 97.8
[2022-03-29] MEDS: ALBUTEROL NEBULIZED 2.5 MG/3 ML INHALATION PRN (16:00)
[2022-03-29 16:10] VITALS: PULSE 121
== END 2022-03-29 16:39 | DRG 291 ==
LOC: EC 22:11 → 3SCARD 03-25 00:10
PROVIDERS: ADMIT Family Medicine; ATTEND Family Medicine
DX: I13.0 Hypertensive heart and chronic kidney disease with heart failure and stage 1 through stage 4 chronic kidney disease, or unspecified chronic kidney disease (principal); I50.43 Acute on chronic combined systolic (congestive) and diastolic (congestive) heart failure; G93.1 Anoxic brain damage, not elsewhere classified; I31.3 Pericardial effusion (noninflammatory); I48.3 Typical atrial flutter; N17.9 Acute kidney failure, unspecified; E78.5 Hyperlipidemia, unspecified; I42.9 Cardiomyopathy, unspecified; I95.9 Hypotension, unspecified; I48.0 Paroxysmal atrial fibrillation; R06.81 Apnea, not elsewhere classified; J44.9 Chronic obstructive pulmonary disease, unspecified; R53.81 Other malaise; R77.8 Other specified abnormalities of plasma proteins; M19.90 Unspecified osteoarthritis, unspecified site; N18.9 Chronic kidney disease, unspecified; R29.6 Repeated falls; R62.7 Adult failure to thrive; F32.A Depression, unspecified; Z79.01 Long term (current) use of anticoagulants; Z79.890 Hormone replacement therapy; Z79.899 Other long term (current) drug therapy; Z80.7 Family history of other malignant neoplasms of lymphoid, hematopoietic and related tissues; Z82.49 Family history of ischemic heart disease and other diseases of the circulatory system; Z85.46 Personal history of malignant neoplasm of prostate; Z96.653 Presence of artificial knee joint, bilateral; Z96.643 Presence of artificial hip joint, bilateral; Z90.79 Acquired absence of other genital organ(s); Z28.21 Immunization not carried out because of patient refusal; Z98.890 Other specified postprocedural states
CPT/HCPCS: 36415; 71046; 80048; 80053; 83605; 83735; 83880; 84484; 85025; 85379; 85610; 85730; 93005; 94640; 94760; 99285

== ENCOUNTER 2022-03-31 17:22 | Emergency (ER) | payer MEDICARE ==
[2022-03-31 17:29] VITALS: RESP 18
--- NOTE | 2022-03-31 17:39 | ED ---
General Adult HPI - General Stated complaint: Fall Time Seen by Provider: 03/31/22 17:27 Source: patient, EMS, RN notes reviewed, old records reviewed Mode of arrival: EMS Limitations: no limitations - History of Present Illness Initial comments: 76-year-old male presents from half-way for evaluation of fall with head injury. Patient is anticoagulated. Apparently the patient had been reaching for a hand towel in the bathroom and fell. Paramedics had noted an abrasion to the occipital scalp. No significant bleeding. No loss consciousness. Patient was admitted to the half-way for rehabilitation for frequent falls. - Related Data Home Medications Medication Instructions Recorded Confirmed DULoxetine HCL [Cymbalta] 60 mg PO BID 01/28/15 03/25/22 lamoTRIgine [LaMICtal] 150 mg PO BID 01/28/15 03/25/22 Albuterol Sulfate [Proair Hfa] 1 puff INHALATION RT-Q4H PRN 03/01/22 03/25/22 Atorvastatin [Lipitor] 20 mg PO DAILY 03/01/22 03/25/22 Beclomethasone Dip 80 Mcg/Puff 1 puff INHALATION RT-BID 03/01/22 03/25/22 [Qvar 80 mcg] Ergocalciferol [Vitamin D2 (1250 1,250 mcg PO Q7D 03/01/22 03/25/22 Mcg = 59883 Iu)] Levothyroxine Sodium 25 mcg PO DAILY 03/01/22 03/25/22 Oxybutynin Chloride [Ditropan XL] 10 mg PO BID 03/01/22 03/25/22 Pregabalin [Lyrica] 150 mg PO TID 03/01/22 03/25/22 Rivaroxaban [Xarelto] 20 mg PO W/SUPPER 03/01/22 03/25/22 buPROPion HCL [Wellbutrin XL] 300 mg PO DAILY 03/01/22 03/25/22 ARIPiprazole [Abilify] 2 - 4 mg PO BID 03/25/22 03/25/22 Previous Rx's Medication Instructions Recorded ARIPiprazole [Abilify] 2 mg PO DAILY tab 03/29/22 Metoprolol Tartrate [Lopressor] 25 mg PO BID #60 tab 03/29/22 Allergies Allergy/AdvReac Type Severity Reaction Status Date / Time No Known Allergies Allergy Verified 03/31/22 17:30 Review of Systems ROS Statement: Those systems with pertinent positive or pertinent negative responses have been documented in the HPI. ROS Other: All systems not noted in ROS Statement are negative. Past Medical History Past Medical History: Atrial Fibrillation, COPD, Hypertension, Osteoarthritis (OA), Sleep Apnea/CPAP/BIPAP Additional Past Medical History / Comment(s): hx of prostate cancer with prostatectomy. Neuropathy, Cardiac cath History of Any Multi-Drug Resistant Organisms: None Reported Past Surgical History: Back Surgery, Heart Catheterization, Joint Replacement Additional Past Surgical History / Comment(s): (B) hip replecement, (B)knee replacement, laminectomy x6, prostatectomy, spinal cord decompression Past Anesthesia/Blood Transfusion Reactions: No Reported Reaction Additional Past Anesthesia/Blood Transfusion Reaction / Comment(s): Pt has only received own blood donated prior to surgery. Past Psychological History: Depression Smoking Status: Never smoker Past Alcohol Use History: Occasional Past Drug Use History: None Reported - Past Family History Father Family Medical History: Congestive Heart Failure (CHF), Hypertension, Myocardial Infarction ([place]) Additional Family Medical History / Comment(s): Father of a [place] at age 89 yrs. Mother Family Medical History: Cancer Additional Family Medical History / Comment(s): Mother had multiple myeloma. She at age 68 yrs. General Exam Limitations: no limitations General appearance: alert, in no apparent distress Head exam: Present: normocephalic, other (Occipital hematoma with small overlying abrasion, no laceration.) Eye exam: Present: normal appearance, PERRL ENT exam: Present: normal exam Neck exam: Present: normal inspection. Absent: tenderness, meningismus Respiratory exam: Present: normal lung sounds bilaterally. Absent: respiratory distress, wheezes Cardiovascular Exam: Present: regular rate, normal rhythm GI/Abdominal exam: Present: soft. Absent: distended, tenderness Extremities exam: Present: normal inspection, normal capillary refill Neurological exam: Present: alert. Absent: motor sensory deficit Psychiatric exam: Present: normal affect, normal mood Skin exam: Present: warm, dry Course Vital Signs 03/31/22 17:23 Temperature 98.6 F Pulse Rate 98 Respiratory 18 Rate Blood Pressure 136/81 O2 Sat by Pulse 96 Oximetry Medical Decision Making - Medical Decision Making 76-year-old male presents with fall, head injury, patient is anticoagulated. Minimal external signs of trauma. Stable vitals. Head CT performed which is negative for intracranial hemorrhage or mass effect, cervical spine negative for fracture subluxation. Patient stable condition and be discharged back to the half-way where he resides. Disposition Clinical Impression: Fall, Concussion Disposition: HOME SELF-CARE Condition: Fair Instructions (If sedation given, give patient instructions): Concussion (ED), Fall Prevention for Older Adults (ED) Is patient prescribed a controlled substance at d/c from ED?: No Referrals: Benjamin Ballard MD [Primary Care Provider] - 1-2 days Time of Disposition: 18:19
--- NOTE | 2022-03-31 18:03 | CT ---
EXAMINATION TYPE: CT brain cspine wo con DATE OF EXAM: 03/31/2022 COMPARISON: 02/06/2022 HISTORY: FALL CT DLP: 1759.7 mGycm Automated exposure control for dose reduction was used. There is cerebral cortical atrophy. There is no mass effect or midline shift. No sign of intracranial hemorrhage. Calvarium is intact. No evidence of cerebral edema. Cervical vertebra have normal alignment. There is degenerative disc space narrowing throughout the ce rvical spine. Posterior elements are intact. Facet joints are intact. IMPRESSION: Cerebral atrophy. No acute intracranial abnormality. Multilevel cervical spondylotic changes. No fracture. No change compared to old exam.
[2022-03-31 20:13] VITALS: BP 145/100; PULSE 56; TEMP 98.3
== END 2022-03-31 20:12 | disposition home or self-care (01) ==
LOC: EC 17:22
DX: S06.0X9A Concussion with loss of consciousness of unspecified duration, initial encounter (principal); J44.9 Chronic obstructive pulmonary disease, unspecified; I10 Essential (primary) hypertension; W18.11XA Fall from or off toilet without subsequent striking against object, initial encounter; Y92.002 Bathroom of unspecified non-institutional (private) residence as the place of occurrence of the external cause
CPT/HCPCS: 70450; 72125; 99284

== ENCOUNTER 2022-04-02 15:33 | Inpatient (IN) | payer MEDICARE ==
[2022-04-02 16:25] LABS: Anisocytosis Slight; Basophils # (A) 0.1 k/uL (0-0.2); Basophils % (A) 1 %; Eosinophils # (A) 0.3 k/uL (0-0.7); Eosinophils % (A) 4 %; HCT 35.6 % (39.0-53.0); Hypochromasia Marked; Lymphocytes # (A) 0.8 k/uL (1.0-4.8); Lymphocytes % (A) 12 %; MCH 27.8 pg (25.0-35.0); MCV 89.5 fL (80.0-100.0); Mean Platelet Volume 7.9; Monocytes # (A) 0.4 k/uL (0-1.0); Monocytes % (A) 6 %; Neutrophils # (A) 5.1 k/uL (1.3-7.7); Neutrophils % (A) 76 %; Platelet Count 270 k/uL (150-450); RBC 3.98 m/uL (4.30-5.90); RDW 16.9 % (11.5-15.5); WBC 6.8 k/uL (3.8-10.6)
[2022-04-02 16:33] LABS: Calcium 8.6 mg/dL (8.4-10.2); Potassium 4.3 mmol/L (3.5-5.1)
[2022-04-02 16:34] LABS: INR 1.3 (<1.2); Partial Thromboplastin Time 38.8 sec (22.0-30.0); Prothrombin Time 13.8 sec (9.0-12.0)
--- NOTE | 2022-04-02 16:42 | ED ---
General Adult HPI - General Chief complaint: Fall Stated complaint: fall, on thinners Time Seen by Provider: 04/02/22 15:45 Source: patient, EMS Mode of arrival: EMS Limitations: no limitations - History of Present Illness Initial comments: Dictation was produced using [employer] dictation software. please excuse any grammatical, word or spelling errors. Chief Complaint: 76-year-old male sent in from [facility] for fall. Patient is on anticoagulation medications History of Present Illness: Patient 76-year-old male multiple comorbidities. He was sent here from [facility]. Patient had a unwitnessed fall from [facility]. Unsure of loss of consciousness. Patient is on mechanical evaluation medications. According to nurse received report from EMS he was found to be altered since this morning. Patient reports that the back of his head is hurting. Per EMS patient has had several falls recently. She is unreliable historian. Patient is confused. The ROS documented in this emergency department record has been reviewed and confirmed by me. Those systems with pertinent positive or negative responses have been documented in the HPI. All other systems are other negative and/or noncontributory. PHYSICAL EXAM: General Impression: Alert and oriented x3/4, not in acute distress, somnolent but arousable HEENT: Normocephalic atraumatic, extra-ocular movements intact, pupils equal and reactive to light bilaterally, mucous membranes moist. Cardiovascular: Heart regular rate and rhythm Chest: Able to complete full sentences, no retractions, no tachypnea Abdomen: abdomen soft, non-tender, non-distended, no organomegaly Musculoskeletal: Pulses present and equal in all extremities, no peripheral edema Motor: no focal deficits noted Neurological: CN II-XII grossly intact, rambling speech, moves all extremity is grossly Skin: Intact with no visualized rashes Psych: Rambling speech ED course: 76-year-old male presents emergency department for chief complaint of fall. He does appear to be encephalopathic and confused. Signs upon arrival are within acceptable limits. it's unclear when patient's last was normal. It's also unclear patient's baseline mental status is. Patient is confused which he does appear to be aphasic at the bedside. His presentation is concerning for acute neurologic process including acute CVA. Patient not a candidate for alteplase given unclear time of last normal period EKG interpretation: Ventricular rate 113, A. fib, QS 160, QTc 444. No CA prolongation, no QTC prolongation, no ST or T-wave changes noted. EKG compared to 03/24/2022 showing no changes. Overall, this EKG is unremarkable Laboratory evaluation obtained. CBC, coag panel, metabolic panel is unremarkable. Computed tomography scan the brain shows no acute processes. Dante almeida is discussed with Dr. Galarza who is his primary care doctor. He is agreeable to have patient admitted with consultation to neurology and psychiatry. Patient has long-standing history of waxing and waning encephalopathic features. Patient has been evaluated by myself in the past and at that time he was not as encephalopathic. Believe that patient would benefit from hospital admission with consultations to the specialist. - Related Data Home Medications Medication Instructions Recorded Confirmed DULoxetine HCL [Cymbalta] 60 mg PO BID 01/28/15 04/02/22 lamoTRIgine [LaMICtal] 150 mg PO BID 01/28/15 04/02/22 Albuterol Sulfate [Proair Hfa] 1 puff INHALATION RT-Q4H PRN 03/01/22 04/02/22 Atorvastatin [Lipitor] 20 mg PO HS 03/01/22 04/02/22 Beclomethasone Dip 80 Mcg/Puff 1 puff INHALATION RT-BID 03/01/22 04/02/22 [Qvar 80 mcg] Ergocalciferol [Vitamin D2 (1250 1,250 mcg PO SA 03/01/22 04/02/22 Mcg = 33379 Iu)] Levothyroxine Sodium 25 mcg PO DAILY 03/01/22 04/02/22 Oxybutynin Chloride [Ditropan XL] 10 mg PO BID 03/01/22 04/02/22 Pregabalin [Lyrica] 150 mg PO TID@0600,1400,2200 03/01/22 04/02/22 Rivaroxaban [Xarelto] 20 mg PO DAILY 03/01/22 04/02/22 buPROPion HCL [Wellbutrin XL] 300 mg PO DAILY 03/01/22 04/02/22 Previous Rx's Medication Instructions Recorded ARIPiprazole [Abilify] 2 mg PO DAILY tab 03/29/22 Metoprolol Tartrate [Lopressor] 25 mg PO BID #60 tab 03/29/22 Allergies Allergy/AdvReac Type Severity Reaction Status Date / Time No Known Allergies Allergy Verified 04/02/22 16:12 Review of Systems ROS Statement: Those systems with pertinent positive or pertinent negative responses have been documented in the HPI. ROS Other: All systems not noted in ROS Statement are negative. Past Medical History Past Medical History: Atrial Fibrillation, COPD, Hypertension, Osteoarthritis (OA), Sleep Apnea/CPAP/BIPAP Additional Past Medical History / Comment(s): hx of prostate cancer with prostatectomy. Neuropathy, Cardiac cath History of Any Multi-Drug Resistant Organisms: None Reported Past Surgical History: Back Surgery, Heart Catheterization, Joint Replacement Additional Past Surgical History / Comment(s): (B) hip replecement, (B)knee replacement, laminectomy x6, prostatectomy, spinal cord decompression Past Anesthesia/Blood Transfusion Reactions: No Reported Reaction Additional Past Anesthesia/Blood Transfusion Reaction / Comment(s): Pt has only received own blood donated prior to surgery. Past Psychological History: Depression Smoking Status: Never smoker Past Alcohol Use History: Occasional Past Drug Use History: None Reported - Past Family History Father Family Medical History: Congestive Heart Failure (CHF), Hypertension, Myocardial Infarction ([place]) Additional Family Medical History / Comment(s): Father of a [place] at age 89 yrs. Mother Family Medical History: Cancer Additional Family Medical History / Comment(s): Mother had multiple myeloma. She at age 68 yrs. General Exam Limitations: no limitations Course Vital Signs 04/02/22 04/02/22 15:44 16:50 Temperature 98 F Pulse Rate 100 115 H Respiratory 20 18 Rate Blood Pressure 112/78 120/81 O2 Sat by Pulse 97 99 Oximetry Medical Decision Making - Lab Data Result diagrams: 04/02/22 16:14 04/02/22 16:14 Lab Results 04/02/22 04/02/22 04/02/22 Range/Units 16:14 16:14 16:14 WBC 6.8 (3.8-10.6) k/uL RBC 3.98 L (4.30-5.90) m/uL Hgb 11.0 L (13.0-17.5) gm/dL Hct 35.6 L (39.0-53.0) % MCV 89.5 (80.0-100.0) fL MCH 27.8 (25.0-35.0) pg MCHC 31.0 (31.0-37.0) g/dL RDW 16.9 H (11.5-15.5) % Plt Count 270 (150-450) k/uL MPV 7.9 Neutrophils % 76 % Lymphocytes % 12 % Monocytes % 6 % Eosinophils % 4 % Basophils % 1 % Neutrophils # 5.1 (1.3-7.7) k/uL Lymphocytes # 0.8 L (1.0-4.8) k/uL Monocytes # 0.4 (0-1.0) k/uL Eosinophils # 0.3 (0-0.7) k/uL Basophils # 0.1 (0-0.2) k/uL Hypochromasia Marked Anisocytosis Slight PT 13.8 H (9.0-12.0) sec INR 1.3 H (<1.2) APTT 38.8 H (22.0-30.0) sec Sodium 138 (137-145) mmol/L Potassium 4.3 (3.5-5.1) mmol/L Chloride 106 (98-107) mmol/L Carbon Dioxide 26 (22-30) mmol/L Anion Gap 6 mmol/L BUN 19 (9-20) mg/dL Creatinine 1.00 (0.66-1.25) mg/dL Est GFR (CKD-EPI)AfAm 85 (>60 ml/min/1.73 sqM) Est GFR (CKD-EPI)NonAf 74 (>60 ml/min/1.73 sqM) Glucose 103 H (74-99) mg/dL Calcium 8.6 (8.4-10.2) mg/dL Disposition Clinical Impression: Altered mental status Disposition: ADMITTED IP TO THIS HOSP Condition: Fair Referrals: Benjamin Ballard MD [STAFF PHYSICIAN] - 1-2 days Decision Time: 17:29
--- NOTE | 2022-04-02 16:56 | CT ---
EXAMINATION TYPE: CT brain cspine wo con CT DLP: 1706.1 mGycm, Automated exposure control for dose reduction was used. DATE OF EXAM: 04/02/2022 4:44 PM COMPARISON: CT brain 03/04/2022 CLINICAL INDICATION:Male, 76 years old with history of fall; Fall TECHNIQUE: Brain: Multiple axial CT images of the brain were obtained without IV contrast. Cspine: Axial CT images from the skull base to the inferior aspect of T2 we obtained without intraven ous contrast. Coronal and sagittal reformatted images were also reviewed. FINDINGS: Brain: Extra-axial spaces: No abnormal extra-axial fluid collections. Ventricular system: Dilatation in proportion to cerebral atrophy. Cerebral parenchyma: Cerebral atrophy. No acute intraparenchymal hemorrhage or mass effect. The colmenares -white junction is well differentiated. Scattered hypoattenuating areas are seen within the white mat ter. Cerebellum: Unremarkable. Mass effect: No evidence of midline shift. Intracranial vasculature: Atherosclerotic calcifications of the intracranial vessels. Soft tissues: Normal. Calvarium/osseous structures: No depressed skull fracture. Paranasal sinuses and mastoid air cells: Clear. Visualized orbits: Orbital contents are intact. Cervical spine: Fracture: None. Osseous structures: Multilevel degenerative disc disease changes with endplate spurring and disc oste ophyte complex's. Vertebral alignment: Within normal limits. Spinal canal/Neural Foramina: Mild multilevel spinal canal stenosis secondary to disc osteophyte comp lexes. Facet joint uncovertebral joint arthropathy scattered throughout the cervical spine with varyi ng degrees of neural foraminal stenosis. Neural foraminal stenosis worse at C3-C4 and C4-C5 bilateral ly with at least moderate to severe. Neck soft tissues: Prevertebral soft tissues are within normal limits. Other: The airway is patent. The lung apices are clear. Atherosclerosis at the carotid bifurcations. IMPRESSION: 1. No acute intracranial process 2. No evidence of cervical spine fracture. 3. Nonspecific white matter changes, likely secondary to chronic small vessel ischemic disease. 4. Moderate to severe multilevel degenerative disc disease with multilevel neural foraminal stenosis ranging from mild to severe at C3-C4 bilaterally and C4-C5 bilaterally
[2022-04-02] MEDS ORDERED: NALOXONE 0.4 MG/ML 1 ML VIAL IV PRN (17:26)
[2022-04-02] MEDS: SODIUM CHLORIDE 0.9% 1,000 ML IV SCH ×2 (18:43→23:42)
[2022-04-02] MEDS: FLUTICASONE 110 MCG INHALER INHALATION SCH (20:01)
[2022-04-02] MEDS: PREGABALIN 75 MG CAP PO SCH (20:45)
[2022-04-02] MEDS: lamoTRIgine 100 MG TAB PO SCH (20:46)
[2022-04-02] MEDS: DULoxetine HCL 60 MG CAPSULE.DR PO SCH (20:46)
[2022-04-02] MEDS: METOPROLOL TARTRATE 25 MG TAB PO SCH (20:46)
[2022-04-02] MEDS: ATORVASTATIN 20 MG TAB PO SCH (20:46)
--- NOTE | 2022-04-02 21:58 | HP ---
HISTORY AND PHYSICAL CHIEF COMPLAINT: Frequent falling. HISTORY OF PRESENT ILLNESS: This is a readmission for this 76-year-old white male. He has encephalopathy and has been in the hospital on and off over the last several months. He tried to go home once, and he fell several times in a single day. He was brought back into the hospital and then arrangements were made for him to go to a assisted for rehab, but he kept falling there as well. He had a severe fall several days ago where he struck his head against a wall and actually broke the wall tile. He had a laceration of the scalp which is attended to in the emergency room. He was sent back to the home and continued to fall, and they sent him in. There is no significant interval cardiac history, including chest pain, shortness of breath, syncope, etc. He definitely has an encephalopathy which is probably related to his admission about a month ago, where he came in in acute pulmonary edema. REVIEW OF SYSTEMS: He denies any chest pain, shortness of breath, abdominal pain, fever, chills, headache, etc. Past medical history, family history, and personal and social histories are all otherwise unremarkable and unchanged from his recent admitting and discharge summaries. PHYSICAL EXAMINATION: Blood pressure is 108/64 with a pulse of 71 and regular. Respirations were 33. In general he appeared to be obese, disheveled and chronically ill. Head, ears, eyes, nose, mouth and throat were normal except for the laceration on the top of the scalp. Neck veins were not distended. Carotids were normal. The chest demonstrated decreased breath sounds with rales scattered throughout. Cardiac exam demonstrated atrial fibrillation. The abdomen was protuberant and soft and there were no masses. Extremities were normal except for 2 to 3+ edema. Neurologically his mentation was slowed. He had no focal cranial nerve or sensorimotor findings at this point. IMPRESSION: 1. Frequent falling and failure to thrive. 2. Recent head injury. 3. Coronary artery disease. 4. Atherosclerotic cardiomyopathy. 5. Atrial fibrillation. 6. Bipolar disorder with depression. PLAN: 1. Bedrest. 2. IV fluids. 3. Neurologic evaluation. 4. Try to reduce his medications as much as possible. 5. Psychiatric consultation. 6. Continue to consider discharge plans. MMODL / IJN: [id number] /
[2022-04-03] MEDS: LEVOTHYROXINE 25 MCG TAB PO SCH (06:12)
[2022-04-03] MEDS: PREGABALIN 75 MG CAP PO SCH ×3 (06:12→21:07)
[2022-04-03] MEDS: FLUTICASONE 110 MCG INHALER INHALATION SCH ×2 (08:00→19:26)
[2022-04-03] MEDS: DULoxetine HCL 60 MG CAPSULE.DR PO SCH ×2 (08:27→21:07)
[2022-04-03] MEDS: ARIPiprazole 2 MG TAB PO SCH (08:27)
[2022-04-03] MEDS: METOPROLOL TARTRATE 25 MG TAB PO SCH ×2 (08:28→21:07)
[2022-04-03] MEDS: lamoTRIgine 100 MG TAB PO SCH ×2 (08:28→21:08)
[2022-04-03] MEDS ORDERED: buPROPion XL 300 MG TAB.ER.24H PO SCH (09:00)
[2022-04-03] MEDS: RIVAROXABAN 20 MG TAB PO SCH (11:50)
--- NOTE | 2022-04-03 13:20 | P.CN ---
Psychiatric Consult - . Consult date: 04/03/22 Consult:: 04/03/22 13:18 This provider attempted to assess the patient at approximately 1:15 PM. Currently, the patient is not in his room and has having an EEG performed. The patient's chart was reviewed. The patient was last assessed on 03/05 and 03/06 for a similar issue of altered mental status. At the time the patient was deemed to be altered due to multiple etiologies including acute metabolic encephalopathy and polypharmacy. Psychiatry will attempt to re-evaluate the patient tomorrow. Gibran Foreman MD
--- NOTE | 2022-04-03 14:17 | P.CNNES ---
History of Present Illness Consult date: 04/03/22 Requesting physician: Lino Lozano Reason for Consult: Altered mental status History of Present Illness: Patient is a 76-year-old male, with history of chronic congestive heart failure, recent history of respiratory failure, paroxysmal atrial fibrillation, hypertension came to the hospital by ambulance yesterday at 3:33 PM after he suffered a fall. As per EMS flow sheet, when they arrived, found patient with a fall at [facility]. Staff mentioned that patient was washing his hands when he fell backwards hitting his head on the ceramic tile wall. Unknown loss of consciousness. Patient does take blood thinners. Patient was complaining of head pain and dizziness. Patient was noted to be alert and oriented 2 with GCS of 14. Patient's vitals at the scene was blood pressure 147/89 pulse rate 119, respiration 18 and saturation 93% on room air. Computed tomography scan of head showed no acute intracranial process. Nonspecific white matter changes likely secondary to chronic small vessel ischemic disease. CT of the cervical spine showed no evidence of cervical spine fracture. Moderate to severe multilevel degenerative disc disease with multilevel neural foraminal stenosis ranging from mild to severe at C3-C4 bilaterally and C4-C5 bilaterally. EKG shows atrial fibrillation with rapid ventricular rate. Left axis deviation. Patient's blood test shows normal CBC with hemoglobin slightly low at 11.0. INR is 1.3, PTT 38.8. Chem-7 is normal. Patient does take Xarelto 20 mg daily, Lyrica 150 mg 3 times a day, oxybutynin 10 mg twice a day, Wellbutrin XL 300 mg daily, levothyroxine, vitamin D, Lipitor 20 mg, metoprolol 25 mg twice a day, Abilify 2 mg daily, Cymbalta 60 mg twice a day and Lamictal 150 mg twice a day. Patient states that he was at [facility], was sitting in the wheelchair, leaned forward to wash hands, when he fell. This is the last thing he remembers, and the next thing he remembers is that he was in the ambulance coming here. Patient states that he lost balance. He states that it has happened before as well and he broke 4 tiles in the bathroom. Patient states that he remembers bits and pieces, people calling his name, shaking him for him to wake up "are you all right?". Patient appears slightly confused, states that last night he was told that he was going to a constitution party at [facility]. Patient tells me that in 2017 developed epidural hematoma after he underwent epidural injection for severe spinal stenosis. He used to have chronic back pain. He developed epidural hematoma following the procedure for which he underwent emergent decompressive surgery at L4-L5 level. He was in rehab for several months. He has residual weakness in the legs. Patient was just recently seen in the hospital on 03/05/2022 for altered mental status, which was felt to be related to polypharmacy and toxic metabolic encephalopathy. Patient also had acute hypoxic respiratory failure secondary to acute on chronic systolic heart failure with EF 40-45%. Patient's dose of Lyrica was decreased to 75 mg twice a day, and other psychoactive medications are also decreased. Patient does have history of mild to moderate renal insufficiency, paroxysmal atrial fibrillation, hypertensive emergency, obstructive sleep apnea and idiopathic sensory peripheral neuropathy. Review of Systems Patient has chronic back pain. Peripheral neuropathy. No chest pain, abdominal pain nausea vomiting diarrhea. All 14 points of review of systems reviewed, u nremarkable except as mentioned in HPI. Past Medical History Past Medical History: Atrial Fibrillation, COPD, Hypertension, Osteoarthritis (OA), Sleep Apnea/CPAP/BIPAP Additional Past Medical History / Comment(s): hx of prostate cancer with prostatectomy. Neuropathy, Cardiac cath History of Any Multi-Drug Resistant Organisms: None Reported Past Surgical History: Back Surgery, Heart Catheterization, Joint Replacement Additional Past Surgical History / Comment(s): (B) hip replecement, (B)knee replacement, laminectomy x6, prostatectomy, spinal cord decompression Past Anesthesia/Blood Transfusion Reactions: No Reported Reaction Additional Past Anesthesia/Blood Transfusion Reaction / Comment(s): Pt has only received own blood donated prior to surgery. Past Psychological History: Depression Additional Psychological History / Comment(s): Pt takes med for depression and is seen by a psychiatrist. He feels his depression is under control. He lives with family. He is independent. He drives a car. Smoking Status: Never smoker Past Alcohol Use History: Occasional Past Drug Use History: None Reported - Past Family History Father Family Medical History: Congestive Heart Failure (CHF), Hypertension, Myocardial Infarction (LA) Additional Family Medical History / Comment(s): Father of a LA at age 89 yrs. Mother Family Medical History: Cancer Additional Family Medical History / Comment(s): Mother had multiple myeloma. She at age 68 yrs. Medications and Allergies Home Medications Medication Instructions Recorded Confirmed Type DULoxetine HCL [Cymbalta] 60 mg PO BID 01/28/15 04/02/22 History lamoTRIgine [LaMICtal] 150 mg PO BID 01/28/15 04/02/22 History Albuterol Sulfate [Proair Hfa] 1 puff INHALATION RT-Q4H PRN 03/01/22 04/02/22 History Atorvastatin [Lipitor] 20 mg PO HS 03/01/22 04/02/22 History Beclomethasone Dip 80 Mcg/Puff 1 puff INHALATION RT-BID 03/01/22 04/02/22 History [Qvar 80 mcg] Ergocalciferol [Vitamin D2 (1250 1,250 mcg PO SA 03/01/22 04/02/22 History Mcg = 61989 Iu)] Levothyroxine Sodium 25 mcg PO DAILY 03/01/22 04/02/22 History Oxybutynin Chloride [Ditropan XL] 10 mg PO BID 03/01/22 04/02/22 History Pregabalin [Lyrica] 150 mg PO TID@0600,1400,2200 03/01/22 04/02/22 History Rivaroxaban [Xarelto] 20 mg PO DAILY 03/01/22 04/02/22 History buPROPion HCL [Wellbutrin XL] 300 mg PO DAILY 03/01/22 04/02/22 History ARIPiprazole [Abilify] 2 mg PO DAILY tab 03/29/22 04/02/22 Rx Metoprolol Tartrate [Lopressor] 25 mg PO BID #60 tab 03/29/22 04/02/22 Rx Allergies Allergy/AdvReac Type Severity Reaction Status Date / Time No Known Allergies Allergy Verified 04/02/22 16:12 Physical Examination - Vital Signs Vital Signs: Vital Signs Temp Pulse Pulse Pulse Resp BP BP 04/03/22 02:00 98.3 F 101 H 16 04/03/22 01:31 110 H 18 04/02/22 20:00 98.2 F 110 H 18 132/82 04/02/22 19:04 98.8 F 102 H 18 127/87 04/02/22 16:50 115 H 18 120/81 06/14/22 15:44 98 F 100 20 112/78 Pulse Ox 04/03/22 02:00 93 L 04/03/22 01:31 04/02/22 20:00 100 04/02/22 19:04 100 04/02/22 16:50 99 04/02/22 15:44 97 Intake and Output 04/02/22 04/03/22 04/03/22 22:59 06:59 14:59 Intake Total 120 Balance 120 Intake: Oral 120 Other: Voiding Method Toilet Toilet # Voids 1 2 # Bowel Movements 1 Weight 136.078 kg Patient is an elderly male, in no acute distress. Patient is alert awake, appears slightly confused, slightly delirious, but oriented to time place and person. He knows it is March and the year is 2021 and that he is in [facility] in [place]. He thinks he is in [place] in [place]. He knows the name of current president, Mr. Mendel Oconnell, capital of [facility] and name of the Governor of [place]. Speech and language functions are normal. Attention, concentration and fund of knowledge is adequate slightly impaired. On cranial examination, pupils are equal, round and reacting to light, visual rose are full on confrontation, with no neglect on double simultaneous stimulation. His extraocular muscles are intact with no nystagmus. Face is symmetric, tongue protrudes to the midline. Palatal elevation and sensation normal, hearing and shoulder shrug normal, facial sensation normal. Shoulder shrug normal. On muscle strength testing, there is no pronator drift and the strength is normal in arms and legs distally and proximally, except hip flexion, which is 4+ bilaterally. Deep tendon reflexes are 1+ in the right upper limbs, 2+ in the left upper limb, lower limbs are hypoactive and plantars are flat. Sensory to touch is equal with no neglect. Cerebellar function showed no ataxia for [id number] testing. Tone and bulk of muscles normal. Patient has mild to moderate resting tremor of the right hand. He does appear slightly bradykinetic. Patient does have some myoclonic jerks of mild degree noted of outstretched hands. Gait not checked. On general examination, there is no carotid bruit or murmur, S1-S2 audible. Abdomen is soft nontender. No organomegaly, bowel sounds present. Chest is clear. Patient has mild to moderate peripheral edema. Results - Laboratory Findings CBC and BMP: 04/02/22 16:14 04/02/22 16:14 Abnormal Lab Findings: Abnormal Labs 04/02/22 04/02/22 04/02/22 16:14 16:14 16:14 RBC 3.98 L Hgb 11.0 L Hct 35.6 L RDW 16.9 H Lymphocytes # 0.8 L PT 13.8 H INR 1.3 H APTT 38.8 H Glucose 103 H Assessment and Plan Assessment: * Status post fall while washing hands. Not very clear, if patient was standing while washing hands or sitting in the chair (per patient report). Rule out syncope, less likely seizure. * Altered mental status, probable mild metabolic encephalopathy. * Polypharmacy * Recent history of hypoxic respiratory failure * Congestive heart failure * Paroxysmal atrial fibrillation * Hypertension * Obstructive sleep apnea * History of prostate cancer and previous prostatectomy * History of idiopathic sensory peripheral neuropathy. Plan: * Patient will undergo syncopal workup. * Carotid Doppler to rule out stenosis * EEG to rule out epileptiform activity * Telemetric monitoring * 2-D echo from 03/04/2022 revealed ejection fraction 40-45% with global hypokinesia. Mild right ventricular dilation. Poorly visualized intracardiac valves. * Patient is slightly delirious, which likely is from mild degree of metabolic encephalopathy, and perhaps polypharmacy. * Psychiatry to address psychoactive medication. * Neurology will follow. Thank you for the consult.
--- NOTE | 2022-04-03 15:51 | EEG ---
ELECTROENCEPHALOGRAM REPORT DATE OF SERVICE: 04/03/2022 PREAMBLE: This is a 76-year-old male with syncopal spell. This study is performed to evaluate for any epileptiform activity. EEG FINDINGS: A 21 channel digital EEG recording with video competent, utilizing 10/20 international system with referential and bipolar montages. Background consists of well- developed, moderately well regulated, mixed frequencies of 6-7 hertz theta intermixed with some 8 hertz alpha activity seen in posterior head region. Background seems to be reactive to eye opening and closing. Frequent myogenic activity was seen during this study. Photic driving response was not seen. Different stages of sleep were not seen. No focal or generalized epileptiform activity was seen. IMPRESSION: This is an abnormal EEG due to background slowing of mild degree. This is suggestive of generalized cerebral dysfunction as can be seen with encephalopathy of toxic metabolic, vascular or degenerative causes or related to medication effect. No epileptiform activity was seen. MMODL / IJN: [id number] / [facility]
--- NOTE | 2022-04-03 16:03 | US ---
EXAMINATION TYPE: US carotid duplex BILAT DATE OF EXAM: 04/03/2022 COMPARISON: NONE CLINICAL HISTORY: syncope. Exam done portable EXAM MEASUREMENTS: RIGHT: Peak Systolic Velocity (PSV) cm/sec ----- Right CCA: 43.9 ----- Right ICA: 73.2 ----- Right ECA: 110.0 ICA/CCA ratio: 1.7 RIGHT: End Diastole cm/sec ----- Right CCA: 13.2 ----- Right ICA: 25.8 ----- Right ECA: 17.4 LEFT: Peak Systolic Velocity (PSV) cm/sec ----- Left CCA: 69.0 ----- Left ICA: 90.0 ----- Left ECA: 103.0 ICA/CCA ratio: 1.3 LEFT: End Diastole cm/sec ----- Left CCA: 11.2 ----- Left ICA: 30.0 ----- Left ECA: 14.6 VERTEBRALS (direction of flow): Right Vertebral: Antegrade Left Vertebral: Antegrade Rhythm: Normal No significant stenosis grayscale, color Doppler, spectral Doppler imaging performed the carotid pallavi more. Waveform analysis does not show significant stenosis of the proximal internal carotid arteries. IMPRESSION: No hemodynamic significant stenosis of the proximal internal carotid arteries by Doppler criteria, an indirect measurement of carotid stenosis Criteria for Assigning % of Stenosis / Diameter reduction (Estimation based on the indirect measurements of the internal carotid artery velocities (ICA PSV). 1. Normal (no stenosis)=ICA PSV < 125 cm/s: ratio < 2.0: ICA EDV<40 cm/s. 2. Less than 50% stenosis=ICA PSV < 125 cm/s: ratio < 2.0: ICA EDV<40 cm/s. 3. 50 to 69% stenosis=ICA PSV of 125 to 230 cm/s: ration 2.0 ? 4.0: ICA EDV 40-100 cm/s. 4. Greater than 70% stenosis to near occlusion= ICA PSV > 230 cm/s: ratio > 4.0: ICA EDV > 100 cm/s. 5. Near occlusion= ICA PSV velocities may be low or undetectable: variable ratio and ICA EDV. 6. Total occlusion=unable to detect flow.
--- NOTE | 2022-04-03 19:17 | PN ---
PROGRESS NOTE DATE OF SERVICE: 04/03/2022 CHIEF COMPLAINT: General debility and failure to thrive with frequent falling. HISTORY OF PRESENT ILLNESS: This gentleman is stable. He is awake and alert. He has been seen by Psychiatry and Neurology and other studies have been ordered. PHYSICAL EXAMINATION: He seems a little bit more awake and alert than he has been. Chest is clear. Cardiac exam is normal. Abdomen is soft, nontender. IMPRESSION: 1. General debility with frequent falling. 2. Encephalopathy. 3. Atherosclerotic cardiomyopathy with heart failure and atrial fibrillation. PLAN: Continue his psychiatric and neurologic workup and consider further arrangements for discharge. MMODL / IJN: [id number] /
[2022-04-03] MEDS: ATORVASTATIN 20 MG TAB PO SCH (21:07)
--- NOTE | 2022-04-04 05:26 | P.CONS ---
History of Present Illness - Chief Complaint Walking difficulty and history of falling - History of Present Illness I had the opportunity to see patient for inpatient rehab consultation with regard to walking difficulty. Patient admitted to [facility] April 02 as a transfer [facility] history of fall. Patient reports falling 5 times in fact. Seen by neurology, Dr. Velez and diagnosis encephalopathy and syncope. Psychiatry consult pending to Dr. Lan. Head CT demonstrates atrophy and atherosclerotic vascular change. C-spine CT with DDD and osteophyte complexes throughout. Carotid Doppler done. Patient started therapies. OT reports supervision feeding, minimal assistance grooming, maximal assistance for upper dressing, bathing, functional mobility transfers and total assistance for lower dressing and toileting. OT reports for PT minimal assistance functional mobility and gait 20 feet with roller walker. Speech therapy prescribed. Patient known to me from recent inpatient consultation similar reason. At that time patient reported goal of discharge to home with support of brother. He was however discharged to [facility] as discussed above. Previous functional history as elicited from patient: 76-year-old right-handed white male who lives alone in one floor home. Was previously independent with own cooking, laundry, driving, standing shower. Of course he was more recently at [facility]. Review of Systems Review of systems: ENT: Denies sneezes or discharge. Eyes: Denies discharge or photophobia. Cardiac: Denies chest pain or palpitation. Pulmonary: Denies cough or shortness of breath. Gastrointestinal: Denies nausea, emesis, constipation, diarrhea. Genitourinary: Denies discharge or frequency. Musculoskeletal: Denies muscle or bone aches. Neurologic: Falling. Endocrine: Denies shakes or sweats. Oncology: Denies cancers. Dermatologic: Denies rash, itching, pruritus. ALLERGY/immunology: Denies sneezes, rashes. Past Medical History Past Medical History: Atrial Fibrillation, COPD, Hypertension, Osteoarthritis (OA), Sleep Apnea/CPAP/BIPAP Additional Past Medical History / Comment(s): hx of prostate cancer with prostatectomy. Neuropathy, Cardiac cath History of Any Multi-Drug Resistant Organisms: None Reported Past Surgical History: Back Surgery, Heart Catheterization, Joint Replacement Additional Past Surgical History / Comment(s): (B) hip replecement, (B)knee replacement, laminectomy x6, prostatectomy, spinal cord decompression Past Anesthesia/Blood Transfusion Reactions: No Reported Reaction Additional Past Anesthesia/Blood Transfusion Reaction / Comm: Pt has only received own blood donated prior to surgery. Past Psychological History: Depression Additional Psychological History / Comment(s): Pt takes med for depression and is seen by a psychiatrist. He feels his depression is under control. He lives with family. He is independent. He drives a car. Smoking Status: Never smoker Past Alcohol Use History: Occasional Past Drug Use History: None Reported - Past Family History Father Family Medical History: Congestive Heart Failure (CHF), Hypertension, Myocardial Infarction (IA) Additional Family Medical History / Comment(s): Father of a IA at age 89 yrs. Mother Family Medical History: Cancer Additional Family Medical History / Comment(s): Mother had multiple myeloma. She at age 68 yrs. Medications and Allergies Home Medications Medication Instructions Recorded Confirmed Type DULoxetine HCL [Cymbalta] 60 mg PO BID 01/28/15 04/02/22 History lamoTRIgine [LaMICtal] 150 mg PO BID 01/28/15 04/02/22 History Albuterol Sulfate [Proair Hfa] 1 puff INHALATION RT-Q4H PRN 03/01/22 04/02/22 History Atorvastatin [Lipitor] 20 mg PO HS 03/01/22 04/02/22 History Beclomethasone Dip 80 Mcg/Puff 1 puff INHALATION RT-BID 03/01/22 04/02/22 History [Qvar 80 mcg] Ergocalciferol [Vitamin D2 (1250 1,250 mcg PO SA 03/01/22 04/02/22 History Mcg = 29336 Iu)] Levothyroxine Sodium 25 mcg PO DAILY 03/01/22 04/02/22 History Oxybutynin Chloride [Ditropan XL] 10 mg PO BID 03/01/22 04/02/22 History Pregabalin [Lyrica] 150 mg PO TID@0600,1400,2200 03/01/22 04/02/22 History Rivaroxaban [Xarelto] 20 mg PO DAILY 03/01/22 04/02/22 History buPROPion HCL [Wellbutrin XL] 300 mg PO DAILY 03/01/22 04/02/22 History ARIPiprazole [Abilify] 2 mg PO DAILY tab 03/29/22 04/02/22 Rx Metoprolol Tartrate [Lopressor] 25 mg PO BID #60 tab 03/29/22 04/02/22 Rx Allergies Allergy/AdvReac Type Severity Reaction Status Date / Time No Known Allergies Allergy Verified 04/02/22 16:12 Physical Exam Vitals: Vital Signs Temp Pulse Pulse Resp BP BP Pulse Ox 04/04/22 04:10 97 F L 114 H 20 134/81 94 L 04/03/22 20:00 98.7 F 104 H 20 112/57 95 04/03/22 19:50 20 04/03/22 11:19 98.0 F 102 H 16 111/73 96 Intake and Output 04/03/22 04/03/22 04/04/22 14:59 22:59 06:59 Intake Total 240 250 Balance 240 250 Intake: Intake, IV Titration 240 Amount Sodium Chloride 0.9% 1, 240 000 ml @ 20 mls/hr IV . Q24H FORTINO Rx#:[id number] Oral 250 Other: Voiding Method Toilet Toilet # Voids 1 4 2 # Bowel Movements 1 Skin: Atrophic, intact. General: Overweight build and comfortable appearance. Head: Normocephalic, atraumatic. Eyes: Symmetric. Pupils equal round. Ears: Symmetric. Hearing within normal limits. Mouth: Clear. Neck: Supple. Carotid without bruit. Cardiac: Regular rate and rhythm. Lungs: Clear anteriorly and posteriorly. Abdomen: Soft active nontender. Overweight. Extremities: Normal tone. Neurological: Mental status: Alert, cooperative, pleasant. Cranial nerves: Symmetric facial tone and trapezius. Motor: Active movement all 4 limbs. Arms at least antigravity in legs less than antigravity. Sensation: Intact throughout. DTRs: Symmetric and equal throughout. Mobility: Requires physical assist for bed mobility. Results CBC & Chem 7: 04/02/22 16:14 04/02/22 16:14 Assessment and Plan (1) Altered mental status Current Visit: Yes Status: Acute Code(s): R41.82 - ALTERED MENTAL STATUS, UNSPECIFIED SNOMED Code(s): 578574065 (2) Acute on chronic combined systolic and diastolic CHF (congestive heart failure) Current Visit: No Status: Acute Code(s): I50.43 - ACUTE ON CHRONIC COMBINED SYSTOLIC AND DIASTOLIC HRT FAIL SNOMED Code(s): 773358563185006 (3) Concussion Current Visit: No Status: Acute Code(s): S06.0X9A - CONCUSSION W LOSS OF CONSCIOUSNESS OF UNSP DURATION, INIT SNOMED Code(s): 992767717 (4) Congestive heart failure (CHF) Current Visit: No Status: Acute Code(s): I50.9 - HEART FAILURE, UNSPECIFIED SNOMED Code(s): 19311573 (5) Fall Current Visit: No Status: Acute Code(s): W19.XXXA - UNSPECIFIED FALL, INITIAL ENCOUNTER SNOMED Code(s): 2819132 Plan: Comments and plan: At this time must be determined what is a discharge plan per family. I suspect that they have determined that they're unable to manage patient. Have discussed possible inpatient rehab with patient and he seems agreeable if necessary. If however: Is for return to SNF, would move forward with that.
[2022-04-04] MEDS: PREGABALIN 75 MG CAP PO SCH ×3 (06:09→21:25)
[2022-04-04] MEDS: LEVOTHYROXINE 25 MCG TAB PO SCH (06:09)
[2022-04-04] MEDS: FLUTICASONE 110 MCG INHALER INHALATION SCH ×2 (07:20→20:01)
[2022-04-04] MEDS: METOPROLOL TARTRATE 25 MG TAB PO SCH ×2 (09:08→21:25)
[2022-04-04] MEDS: RIVAROXABAN 20 MG TAB PO SCH (09:08)
[2022-04-04] MEDS: ARIPiprazole 2 MG TAB PO SCH (09:08)
[2022-04-04] MEDS: buPROPion XL 150 MG TAB.ER.24H PO SCH (09:08)
[2022-04-04] MEDS: lamoTRIgine 100 MG TAB PO SCH ×2 (09:08→21:26)
[2022-04-04] MEDS: DULoxetine HCL 60 MG CAPSULE.DR PO SCH ×2 (09:08→21:25)
[2022-04-04] MEDS: ACETAMINOPHEN TAB 325 MG TAB PO PRN (09:08)
--- NOTE | 2022-04-04 13:50 | P.CN ---
Psychiatric Consult - . Consult date: 04/04/22 Consult:: 04/04/22 13:50 IDENTIFYING DATA: This patient is a 76-year-old male with significant history of atrial fibrillation, COPD, hypertension, who presented to the emergency department on 04/02/2022 after a fall during his stay at [facility]. HISTORY OF PRESENT ILLNESS: The patient presented to the hospital on 04/02/2022, brought into the hospital from [facility] via ambulance after a fall. The patient was found to be altered since this morning. He has had several falls recently. He was noted to be quite confused upon evaluation in the emergency department. He was subsequently admitted medically for further evaluation and management of altered mental status. Psychiatry has been consulted for further evaluation of altered mental status. Patient was noted by staff to be very altered yesterday. He was often confusing his nurse for being "his lover." However, upon evaluation today, the patient is currently alert and oriented in all spheres and responds appropriately to qu estions. The patient is currently not endorsing any significant psychotic symptoms or any manic symptoms. He is not reporting any auditory or visual hallucinations. He denies any paranoia or other delusions. The patient reports no suicidal or homicidal ideation, intention, and/or plan. As per EEG report, there was mild slowing suggestive of generalized cerebral dysfunction likely secondary to toxic metabolic encephalopathy or related to medication effect. The patient was last evaluated by psychiatry in February 2022 for similar presentation of altered mental status. At the time, there was concern that the patient is expressing polypharmacy and acute metabolic encephalopathy. Wellbutrin was decreased. However, the patient is back to his previously prescribed dose of 300 mg daily. When discussing with the patient that Wellbutrin may contribute to his altered mental status and possible concerns for seizure, the patient maintains that he needs to be on his Wellbutrin as he has been on this medication for years. He specifically states that if this provider was to cut or discontinue this medication, he will ask his outpatient psychiatrist Dr. Beckham to represcribe it for him. PAST PSYCHIATRIC HISTORY: Patient has a major depressive disorder. The patient has had previous psychotropic medication trials including Wellbutrin, Lamictal, Cymbalta, Abilify, and Xanax. The patient has had 1 prior psychiatric hospitalization many years ago. He follows with his psychiatrist Dr. Beckham. The patient has reported history of one prior suicide attempt. PAST MEDICAL HISTORY: Past Medical History: Atrial Fibrillation, COPD, Hypertension, Osteoarthritis (OA), Sleep Apnea/CPAP/BIPAP Additional Past Medical History / Comment(s): hx of prostate cancer with prostatectomy. Neuropathy, Cardiac cath History of Any Multi-Drug Resistant Organisms: None Reported Past Surgical History: Back Surgery, Heart Catheterization, Joint Replacement Additional Past Surgical History / Comment(s): (B) hip replecement, (B)knee replacement, laminectomy x6, prostatectomy, spinal cord decompression Past Anesthesia/Blood Transfusion Reactions: No Reported Reaction Additional Past Anesthesia/Blood Transfusion Reaction / Comm: Pt has only received own blood donated prior to surgery. Past Psychological History: Depression Additional Psychological History / Comment(s): Pt takes med for depression and is seen by a psychiatrist. He feels his depression is under control. He lives with family. He is independent. He drives a car. Smoking Status: Never smoker Past Alcohol Use History: Occasional Past Drug Use History: None Reported ALLERGIES: NO KNOWN DRUG ALLERGIES. CHEMICAL DEPENDENCY HISTORY: Nonsmoker. Occasional alcohol use. No drug use. 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 MENTAL STATUS EXAM: General Appearance: Patient appears to be stated age is alert, pleasant, and cooperative. Patient appears to have fair hygiene and grooming wearing hospital gown with fair eye contact. Behavior: Patient is calmly seated upright in his chair without any agitated behavior. Speech: Patient's speech is fluent and nonpressured. Mood/Affect: Patient reports their mood is "doing okay", affect is congruent Suicidality/Homicidality: Patient denies having any suicidal or homicidal ideation intent or plan. Perceptions: Patient denies any visual hallucinations and denies any auditory hallucinations Though content/process: There is no evidence of any delusional thought content and thought process is linear and goal-directed. Memory and concentration: AOX3, grossly intact for the purposes of this session. Can spell "WORLD" backwards Judgment and insight: Fair IMPRESSIONS: Altered mental status, likely due to multiple etiologies including polypharmacy, acute metabolic encephalopathy, prolonged hospitalizations/usp stay. Acute on chronic combined systolic and diastolic CHF PLAN: -Continue your medical management. -At this time patient DOES NOT meet criteria for inpatient psychiatric admission. Currently, the patient is not presenting with any imminent risk of harm to self or others. He is currently alert and oriented in all spheres and is not actively psychotic or manic. -Delirium precautions recommended with patient including - avoiding use of narcotics and MILL HAND sedatives, limit anticholinergic medications when possible, f requent re-orientation, minimize use of restraints, open window shades during the day and close them at night -Would recommend the following medication changes/additions: We have decreased Wellbutrin to 150 mg by mouth daily due to concerns for possible seizure. This provider has discussed possible discontinuation of this medication however the patient is vehemently stating that he wants to continue to take this medication despite the known risks. He reports that the benefit of this medication greatly outweighs his risks. Continue Cymbalta and Lamictal for now. We will discontinue Abilify as 2 mg daily is not likely to have any significant effect given his age and size. It is likely that this reynolds contributed to polypharmacy for this patient. -Recommend outpatient psychiatric follow-up. -Psychiatry will sign off at this point, please contact with any questions. 04/04/22 13:50
--- NOTE | 2022-04-04 15:12 | P.PN ---
Progress Note - Text Patient has insurance that is not likely to allow IPR and then SNF, so would recommend return to SNF placement at this time.
[2022-04-04] MEDS: SODIUM CHLORIDE 0.9% 1,000 ML IV SCH (18:59)
--- NOTE | 2022-04-04 20:10 | PN ---
PROGRESS NOTE CHIEF COMPLAINT: General debility and encephalopathy. HISTORY OF PRESENT ILLNESS: This patient is doing about the same. He apparently is walking with a little bit more stability. He does seem to remain weak and his cognitive function seems to continue to be slowed. PHYSICAL EXAMINATION: Chest clear. The cardiac exam is normal. Abdomen is soft, nontender. IMPRESSION: 1. Frequent falling. 2. General debility. 3. Chronic congestive heart failure. 4. Cephalopathy. PLAN: 1. ACTH, a.m. and p.m. cortisols along with TSH. 2. Continue with physical therapy and looking into long-term discharge plan. MMODL / IJN: [id number] /
[2022-04-04] MEDS: ATORVASTATIN 20 MG TAB PO SCH (21:25)
[2022-04-05] MEDS: PREGABALIN 75 MG CAP PO SCH ×3 (05:32→21:11)
[2022-04-05] MEDS: LEVOTHYROXINE 25 MCG TAB PO SCH (05:32)
[2022-04-05] MEDS: FLUTICASONE 110 MCG INHALER INHALATION SCH ×2 (07:25→20:12)
[2022-04-05] MEDS: lamoTRIgine 100 MG TAB PO SCH ×3 (08:20→21:11)
[2022-04-05] MEDS: DULoxetine HCL 60 MG CAPSULE.DR PO SCH ×3 (08:21→21:10)
[2022-04-05] MEDS: ACETAMINOPHEN TAB 325 MG TAB PO PRN (08:21)
[2022-04-05] MEDS: METOPROLOL TARTRATE 25 MG TAB PO SCH ×3 (08:21→21:10)
[2022-04-05] MEDS: buPROPion XL 150 MG TAB.ER.24H PO SCH ×2 (08:22→10:39)
[2022-04-05] MEDS: RIVAROXABAN 20 MG TAB PO SCH ×2 (08:22→10:39)
--- NOTE | 2022-04-05 10:36 | P.PN ---
Subjective Progress Note Date: 04/04/22 Patient feels fine, offers no complaints. Patient was in the bathroom, came out from bathroom, was using walker appeared very steady. Objective - Vital Signs Vital signs: Vital Signs Temp 97.9 F 04/04/22 19:48 Pulse 105 H 04/04/22 19:48 Resp 16 04/04/22 19:48 BP 134/67 04/04/22 19:48 Pulse Ox 95 04/04/22 19:48 FiO2 Intake & Output 04/04/22 04/04/22 04/05/22 06:59 18:59 06:59 Intake Total 250 Balance 250 Intake: Oral 250 Other: Voiding Method Toilet Toilet Toilet # Voids 2 4 1 - Exam Mental status, speech and language functions are normal. - Labs CBC & Chem 7: 04/02/22 16:14 04/02/22 16:14 Assessment and Plan Assessment: * Status post fall while washing hands. Patient believes that he was standing, just lost balance and fell. Patient has some loss of memory, therefore rule out syncope, less likely seizure. * Altered mental status, probable mild metabolic encephalopathy. * Polypharmacy * Recent history of hypoxic respiratory failure * Congestive heart failure * Paroxysmal atrial fibrillation * Hypertension * Obstructive sleep apnea * History of prostate cancer and previous prostatectomy * History of idiopathic sensory peripheral neuropathy. Plan: * Patient's syncopal workup came back negative as below. * Carotid Doppler revealed no hemodynamic significant stenosis of the proximal ICA. Antegrade flow in both vertebral arteries. * EEG was abnormal due to background slowing of mild degree. This is suggestive of generalized cerebral dysfunction as can be seen with toxic metabolic encephalopathy or related to medication effect. No epileptiform activity was seen. * Telemetric monitoring * 2-D echo from 03/04/2022 revealed ejection fraction 40-45% with global hypokinesia. Mild right ventricular dilation. Poorly visualized intracardiac valves. * Patient's mentation appears normal. * Psychiatry to address psychoactive medication. * Neurology will sign off. Please reconsult if any other concerns.
--- NOTE | 2022-04-05 12:34 | DS ---
DISCHARGE SUMMARY CHIEF COMPLAINT: Frequent falling with closed-head injury, congestive heart failure and encephalopathy. HISTORY OF PRESENT ILLNESS AND PHYSICAL EXAMINATION: Details of this man's history and physical can be found in the initial workup. LABORATORY STUDIES: While he is in the hospital he had laboratory studies, details of which can be found in the laboratory section of his chart. COURSE IN THE HOSPITAL: After admission he was placed on bedrest, started intravenous fluids, and he was seen in consultation by Neurology and Psychiatry. While in the hospital he became a little bit more awake and alert and a little bit more stable. He was not able to return home. Consult was placed for rehab at the [facility], but this was turned down, and he will be going back to [facility]. FINAL DIAGNOSIS: 1. General debility and failure to thrive. 2. Frequent falling. 3. Generalized weakness. 4. Closed-head injury. 5. Atherosclerotic cardiomyopathy. 6. Coronary artery disease. 7. Ischemic encephalopathy. 8. Bipolar depression. OPERATIONS: None. CONSULTATIONS: 1. Neurology. 2. Psychiatry. He is improved. MMODL / IJN: [id number] /
[2022-04-05] MEDS: SODIUM CHLORIDE 0.9% 1,000 ML IV SCH (19:15)
[2022-04-05] MEDS: ATORVASTATIN 20 MG TAB PO SCH (21:10)
[2022-04-06] MEDS: LEVOTHYROXINE 25 MCG TAB PO SCH (06:01)
[2022-04-06] MEDS: PREGABALIN 75 MG CAP PO SCH ×3 (06:01→20:59)
[2022-04-06] MEDS: FLUTICASONE 110 MCG INHALER INHALATION SCH ×2 (07:43→19:28)
[2022-04-06] MEDS: buPROPion XL 150 MG TAB.ER.24H PO SCH (09:01)
[2022-04-06] MEDS: lamoTRIgine 100 MG TAB PO SCH ×2 (09:01→20:57)
[2022-04-06] MEDS: DULoxetine HCL 60 MG CAPSULE.DR PO SCH ×2 (09:01→20:56)
[2022-04-06] MEDS: RIVAROXABAN 20 MG TAB PO SCH (09:02)
[2022-04-06] MEDS: METOPROLOL TARTRATE 25 MG TAB PO SCH ×2 (09:02→20:57)
[2022-04-06] MEDS: SODIUM CHLORIDE 0.9% 1,000 ML IV SCH (19:24)
--- NOTE | 2022-04-06 20:15 | PN ---
PROGRESS NOTE DATE OF SERVICE: 04/06/2022 CHIEF COMPLAINT: General debility, frequent falling and encephalopathy. HISTORY OF PRESENT ILLNESS: This gentleman is still in the hospital and was discharged yesterday to a group home. It is not clear what has gone wrong. PHYSICAL EXAMINATION: Physical exam is unchanged. IMPRESSION: 1. General debility. 2. Encephalopathy. 3. Congestive heart failure. PLAN: Await discharge to [facility]. MMHORACE / GIULIANAN: [id number] /
[2022-04-06] MEDS: ATORVASTATIN 20 MG TAB PO SCH (20:56)
[2022-04-07] MEDS: PREGABALIN 75 MG CAP PO SCH ×2 (05:31→14:40)
[2022-04-07] MEDS: LEVOTHYROXINE 25 MCG TAB PO SCH (05:31)
[2022-04-07] MEDS: FLUTICASONE 110 MCG INHALER INHALATION SCH (07:29)
[2022-04-07] MEDS: lamoTRIgine 100 MG TAB PO SCH (08:05)
[2022-04-07] MEDS: DULoxetine HCL 60 MG CAPSULE.DR PO SCH (08:05)
[2022-04-07] MEDS: buPROPion XL 150 MG TAB.ER.24H PO SCH (08:05)
[2022-04-07] MEDS: METOPROLOL TARTRATE 25 MG TAB PO SCH (08:05)
[2022-04-07] MEDS: RIVAROXABAN 20 MG TAB PO SCH (08:05)
[2022-04-07 12:38] VITALS: BP 111/71; PULSE 99; RESP 15; TEMP 98.1
--- NOTE | 2022-04-07 16:19 | PN ---
PROGRESS NOTE DATE OF SERVICE: 04/07/2022 CHIEF COMPLAINT: Encephalopathy and heart failure. HISTORY OF PRESENT ILLNESS: This gentleman still awaits discharge. There has been no interval change. PHYSICAL EXAMINATION: Vital signs are normal. Chest is clear. Cardiac exam is normal. IMPRESSION: 1. Encephalopathy. 2. Cardiomyopathy. 3. Congestive heart failure. PLAN: He is supposed to go to a care home anytime. He was discharged Friday. MMODL / IJN: [id number] /
--- NOTE | 2022-04-07 17:15 | P.PN ---
Progress Note - Text Chart reviewed. PT reports supervision only for bed mobility, transfers and gait 200 ft roller walker. OT reports independent for feeding and minimal assist for grooming, upper/lower dress and bathing and toileting and basic self csre care transfers. Doing well and would not require mulit-disciplinary care required for admission inpatient rehab insurance criteria. Would still recommend return to SNF.
[2022-04-07] MEDS: SODIUM CHLORIDE 0.9% 1,000 ML IV SCH (19:33)
--- NOTE | 2022-04-08 20:08 | DS ---
DISCHARGE SUMMARY DISCHARGE SUMMARY ADDENDUM: CHIEF COMPLAINT: Failure to thrive, frequent falling and encephalopathy with congestive heart failure. HISTORY OF PRESENT ILLNESS: This gentleman had been discharged to go to [facility] on April 05. For some reason, he was not discharged. I was not aware that he was still in the hospital. He had the nurses call on the evening of April 07, wanting to be discharged, and he was told that he should wait and go to [facility] on the [place] for rehab, and then he signed himself out AGAINST MEDICAL ADVICE. Final diagnoses are the same. MMODL / IJN: [id number] /
== END 2022-04-07 19:49 | disposition left against medical advice (07) | DRG 92 ==
LOC: EC 15:33 → 5NMEDONC 17:26
PROVIDERS: ADMIT Family Medicine; ATTEND Family Medicine
DX: G92.8 Other toxic encephalopathy (principal); F31.30 Bipolar disorder, current episode depressed, mild or moderate severity, unspecified; I42.9 Cardiomyopathy, unspecified; R47.01 Aphasia; I50.22 Chronic systolic (congestive) heart failure; S09.90XA Unspecified injury of head, initial encounter; R62.7 Adult failure to thrive; G60.8 Other hereditary and idiopathic neuropathies; I11.0 Hypertensive heart disease with heart failure; I48.0 Paroxysmal atrial fibrillation; J44.9 Chronic obstructive pulmonary disease, unspecified; G31.9 Degenerative disease of nervous system, unspecified; I25.10 Atherosclerotic heart disease of native coronary artery without angina pectoris; G47.33 Obstructive sleep apnea (adult) (pediatric); S01.01XA Laceration without foreign body of scalp, initial encounter; M50.31 Other cervical disc degeneration, high cervical region; M48.02 Spinal stenosis, cervical region; M19.90 Unspecified osteoarthritis, unspecified site; M54.9 Dorsalgia, unspecified; G89.29 Other chronic pain; R53.1 Weakness; R29.6 Repeated falls; R53.81 Other malaise; Z79.01 Long term (current) use of anticoagulants; Z79.890 Hormone replacement therapy; Z79.51 Long term (current) use of inhaled steroids; Z79.899 Other long term (current) drug therapy; Z96.643 Presence of artificial hip joint, bilateral; Z96.653 Presence of artificial knee joint, bilateral; Z91.81 History of falling; Z85.46 Personal history of malignant neoplasm of prostate; Z90.79 Acquired absence of other genital organ(s); Z87.39 Personal history of other diseases of the musculoskeletal system and connective tissue; Z91.51 Personal history of suicidal behavior; Z98.890 Other specified postprocedural states; W18.30XA Fall on same level, unspecified, initial encounter; W22.01XA Walked into wall, initial encounter; Y92.129 Unspecified place in nursing home as the place of occurrence of the external cause; Z82.49 Family history of ischemic heart disease and other diseases of the circulatory system; Z80.7 Family history of other malignant neoplasms of lymphoid, hematopoietic and related tissues
CPT/HCPCS: 36415; 70450; 72125; 80048; 82024; 82533; 84443; 85025; 85610; 85730; 93005; 93880; 94640; 95816; 99285

== ENCOUNTER 2022-06-29 17:58 | Emergency (ER) | payer MEDICARE ==
[2022-06-29 18:26] VITALS: BP 116/67; PULSE 108; RESP 16; TEMP 98.1
--- NOTE | 2022-06-29 19:05 | XR ---
EXAMINATION TYPE: XR wrist complete BILATERAL DATE OF EXAM: 06/29/2022 COMPARISON: NONE HISTORY: Pain TECHNIQUE: 4 views each wrist FINDINGS: There is widening of the left wrist scapholunate joint space. There is minor spurring of th e left first carpometacarpal joint. There is some cystic changes and sclerosis in the right side lunate and hamate and the trapezoid. The re is narrowing of the capitate lunate joint space of the right wrist. No fracture seen. The metacarp als are intact. No evidence of scaphoid fracture. IMPRESSION: There are areas of osteoarthritis as above. There is widening of the left-sided scapholun ate joint space related to ligamentous tear of uncertain age. No fracture seen.
--- NOTE | 2022-06-29 19:43 | ED ---
General Adult HPI - General Chief complaint: Extremity Injury, Upper Stated complaint: wrist injury - fall Time Seen by Provider: 06/29/22 19:40 Source: patient Mode of arrival: wheelchair Limitations: no limitations - History of Present Illness Initial comments: Patient presents to the ED with his brother for evaluation. Patient states that he accidentally tripped and fell forward on bilateral outstretched arms earlier today, and he states that he has had bilateral wrist pain R>L since then. Patient denies head injury or LOC. Patient denies any other injury or site of pain. Patient denies headache, focal neuro deficit, neck/back/lower extremity pain, chest pain, dyspnea, dizziness, abdominal pain, nausea or vomiting, or any other symptoms or complaints. - Related Data Home Medications Medication Instructions Recorded Confirmed DULoxetine HCL [Cymbalta] 60 mg PO BID 01/28/15 04/02/22 lamoTRIgine [LaMICtal] 150 mg PO BID 01/28/15 04/02/22 Albuterol Sulfate [Proair Hfa] 1 puff INHALATION RT-Q4H PRN 03/01/22 04/02/22 Atorvastatin [Lipitor] 20 mg PO HS 03/01/22 04/02/22 Beclomethasone Dip 80 Mcg/Puff 1 puff INHALATION RT-BID 03/01/22 04/02/22 [Qvar 80 mcg] Ergocalciferol [Vitamin D2 (1250 1,250 mcg PO SA 03/01/22 04/02/22 Mcg = 27501 Iu)] Levothyroxine Sodium 25 mcg PO DAILY 03/01/22 04/02/22 Pregabalin [Lyrica] 150 mg PO TID@0600,1400,2200 03/01/22 04/02/22 Rivaroxaban [Xarelto] 20 mg PO DAILY 03/01/22 04/02/22 buPROPion HCL [Wellbutrin XL] 300 mg PO DAILY 03/01/22 04/02/22 Previous Rx's Medication Instructions Recorded ARIPiprazole [Abilify] 2 mg PO DAILY tab 03/29/22 Metoprolol Tartrate [Lopressor] 25 mg PO BID #60 tab 03/29/22 Allergies Allergy/AdvReac Type Severity Reaction Status Date / Time No Known Allergies Allergy Verified 06/29/22 18:24 Review of Systems ROS Statement: Those systems with pertinent positive or pertinent negative responses have been documented in the HPI. ROS Other: All systems not noted in ROS Statement are negative. Past Medical History Past Medical History: Atrial Fibrillation, COPD, Hypertension, Osteoarthritis (OA), Sleep Apnea/CPAP/BIPAP Additional Past Medical History / Comment(s): hx of prostate cancer with prostatectomy. Neuropathy, Cardiac cath History of Any Multi-Drug Resistant Organisms: None Reported Past Surgical History: Back Surgery, Heart Catheterization, Joint Replacement Additional Past Surgical History / Comment(s): (B) hip replecement, (B)knee replacement, laminectomy x6, prostatectomy, spinal cord decompression Past Anesthesia/Blood Transfusion Reactions: No Reported Reaction Additional Past Anesthesia/Blood Transfusion Reaction / Comment(s): Pt has only received own blood donated prior to surgery. Past Psychological History: Depression Smoking Status: Never smoker Past Alcohol Use History: Occasional Past Drug Use History: None Reported - Past Family History Father Family Medical History: Congestive Heart Failure (CHF), Hypertension, Myocardial Infarction (IA) Additional Family Medical History / Comment(s): Father of a IA at age 89 yrs. Mother Family Medical History: Cancer Additional Family Medical History / Comment(s): Mother had multiple myeloma. She at age 68 yrs. General Exam Limitations: no limitations General appearance: alert, in no apparent distress Head exam: Present: atraumatic, normocephalic Eye exam: Present: normal appearance, EOMI ENT exam: Present: mucous membranes moist Neck exam: Present: other (Trachea is in midline). Absent: tenderness Respiratory exam: Present: normal lung sounds bilaterally. Absent: respiratory distress, wheezes, rales, rhonchi, stridor Cardiovascular Exam: Present: regular rate, normal rhythm, normal heart sounds, other (Normal radial pulses bilaterally) GI/Abdominal exam: Present: soft. Absent: distended, tenderness, guarding Extremities exam: Present: full ROM, other (Mild right dorsolateral wrist tenderness; no left wrist tenderness; no scaphoid/snuffbox tenderness) Back exam: Absent: tenderness Neurological exam: Present: alert, oriented X3. Absent: motor sensory deficit Psychiatric exam: Present: normal affect, normal mood Skin exam: Present: warm, dry, intact, normal color Course Vital Signs 06/29/22 18:24 Temperature 98.1 F Pulse Rate 108 H Respiratory 16 Rate Blood Pressure 116/67 O2 Sat by Pulse 92 L Oximetry Medical Decision Making - Medical Decision Making Patient's wrist x-rays are negative. Patient has no scaphoid/snuffbox tenderness. I suspect that the patient has likely sustained wrist sprains. Patient was counseled about wrist sprains, and he was clearly explained return and follow-up instructions. Patient feels comfortable with this plan. - Radiology Data Bilateral wrist x-rays: There are areas of osteoarthritis as above. There is widening of the left-sided scapholunate joint space related to ligamentous tear of uncertain age. No fracture seen. Disposition Clinical Impression: Fall, Wrist sprain Disposition: HOME SELF-CARE Condition: Stable Instructions (If sedation given, give patient instructions): Wrist Sprain (ED), Fall Prevention for Older Adults (ED) Additional Instructions: Return to the ER immediately should you develop new or worsening pain or symptoms. Follow up closely with your primary care provider. Is patient prescribed a controlled substance at d/c from ED?: No Referrals: Enoch Galarza MD [Primary Care Provider] - 1-2 days Time of Disposition: 20:10
== END 2022-06-29 20:36 | disposition home or self-care (01) ==
LOC: EC 17:58
DX: S63.501A Unspecified sprain of right wrist, initial encounter (principal); S63.502A Unspecified sprain of left wrist, initial encounter; I10 Essential (primary) hypertension; J44.9 Chronic obstructive pulmonary disease, unspecified; I48.91 Unspecified atrial fibrillation; Z79.01 Long term (current) use of anticoagulants; Z79.51 Long term (current) use of inhaled steroids; Z85.46 Personal history of malignant neoplasm of prostate; W01.0XXA Fall on same level from slipping, tripping and stumbling without subsequent striking against object, initial encounter
CPT/HCPCS: 99283

== ENCOUNTER → 2022-08-26 | Outpatient (CLI) | payer MEDICARE ==
[2022-08-26 18:31] LABS: ALT 18 U/L (10-49); AST 16 U/L (14-35); African American GFR (CKD) 85.6 (60.0-200.0); Albumin 3.9 g/dL (3.8-4.9); Alkaline Phosphatase 119 U/L (41-126); Blood Urea Nitrogen 19.6 mg/dL (9.0-27.0); Calcium 9.4 mg/dL (8.7-10.3); Carbon Dioxide 28.7 mmol/L (20.0-27.5); Chloride 103 mmol/L (96-109); Chol/HDL Ratio 2.78 Ratio; Globulin 2.6 g/dL (1.6-3.3); Glucose 96 mg/dL (70-110); LDL Cholesterol,Calculated 72.8 mg/dL (0.0-131.0); Non-African American GFR(CKD) 73.8 (60.0-200.0); Potassium 5.1 mmol/L (3.5-5.5); Sodium 139 mmol/L (135-145); Total Protein 6.5 g/dL (6.2-8.2); VLDL Calculation 12.38 mg/dL (5.00-40.00)
[2022-08-26 20:16] LABS: HCT 39.2 % (39.6-50.0); MCHC 30.6 g/dL (32.0-37.0); MCV 81.7 fL (80.0-97.0); Mean Platelet Volume 10.1 fL (9.5-12.2); NRBC Per 100 WBC 0 /100 WBCS (0.0-0.0); Platelet Count 333 X 10*3/uL (140-440); RDW 17.1 % (11.5-14.5); WBC 6.53 X 10*3/uL (4.50-10.00)
== END | disposition home or self-care (01) ==
LOC: LABWHC1 11:42
PROVIDERS: ATTEND Internal Medicine Cardiovascular Disease
DX: I48.0 Paroxysmal atrial fibrillation (principal); R06.02 Shortness of breath; E78.2 Mixed hyperlipidemia
CPT/HCPCS: 36415; 80053; 80061; 82248; 83880; 84443; 85027; 86140

== ENCOUNTER 2023-11-27 17:03 | Observation (INO) | payer MEDICARE ==
[2023-11-27] MEDS: MORPHINE SULFATE 4 MG/ML SYRINGE IVP STA (19:21)
[2023-11-27 19:37] LABS: HCT 41.9 % (39.0-53.0); HGB 13.2 gm/dL (13.0-17.5); Hypochromasia Slight; MCHC 31.5 g/dL (31.0-37.0); MCV 88.7 fL (80.0-100.0); Mean Platelet Volume 8.3; Platelet Count 271 k/uL (150-450); RBC 4.73 m/uL (4.30-5.90); RDW 14.8 % (11.5-15.5)
[2023-11-27 19:46] LABS: Partial Thromboplastin Time 30.7 sec (22.0-30.0); Prothrombin Time 10.8 sec (10.0-12.5)
[2023-11-27 19:57] LABS: African American GFR (CKD) 33 (>60 ml/min/1.73 sqM); Anion Gap 7 mmol/L; Blood Urea Nitrogen 36 mg/dL (9-20); Calcium 8.9 mg/dL (8.4-10.2); Carbon Dioxide 24 mmol/L (22-30); Chloride 100 mmol/L (98-107); Glucose 96 mg/dL (74-99); Non-African American GFR(CKD) 29 (>60 ml/min/1.73 sqM); Sodium 131 mmol/L (137-145)
[2023-11-27] MEDS: DIPH,PERTUS(ACELL)TETVAC-LF 0.5 ML VIAL IM ONE (20:19)
--- NOTE | 2023-11-27 20:41 | CT ---
EXAMINATION TYPE: CT brain cspine wo con DATE OF EXAM: 11/27/2023 HISTORY: Fall, laceration to posterior skull TECHNIQUE: CT scan of the head and cervical spine are performed without contrast. CT DLP: 1604.8 mGycm. Automated Exposure Control for Dose Reduction was Utilized. COMPARISON: 04/02/2022 FINDINGS: There is soft tissue swelling posteriorly over the vertex, just right of midline. The underlying bone is negative for fracture. There is no skull fracture or intracranial hemorrhage. There is no mass, mass effect, or extra-axial fluid collection. No definite intracranial acute attenuation defect. The mastoid sinus air cells, mid dle ear cavities and paranasal sinuses are clear. Orbits are intact. Multilevel advanced cervical spondylosis changes are noted. Negative for fracture or malalignment. IMPRESSION: CT head: No acute cranial/intracranial process. CT cervical spine: Negative for fracture or malalignment.
--- NOTE | 2023-11-27 20:43 | XR ---
PROCEDURE: XR pelvis AP view - 3V DATE AND TIME: 11/27/2023 7:43 PM CLINICAL INDICATION: PHH; fall, pain TECHNIQUE: Department protocol COMPARISON: None FINDINGS: Bilateral THRs appear intact as seen. There is no fracture or malalignment. The soft tissues are unremarkable. IMPRESSION: No acute radiographic process.
--- NOTE | 2023-11-27 20:44 | XR ---
EXAMINATION: XR chest 2V: 11/27/2023 7:43 PM CLINICAL INDICATION: fall, pain TECHNIQUE: Departmental protocol COMPARISON: 03/26/2022 FINDINGS: The lungs are clear. The pleural spaces are negative. The cardiac silhouette is not enlarged. The remainder of the mediastinal silhouette is unremarkable. The skeletal structures and soft tissues are negative for acute findings. IMPRESSION: No acute radiographic process.
--- NOTE | 2023-11-27 20:47 | CT ---
EXAMINATION TYPE: CT lumbar spine wo con DATE OF EXAM: 11/27/2023 7:40 PM HISTORY: fall, lower back pain TECHNIQUE: Departmental protocol. Automated exposure control for dose reduction was used. Unenhanced CT of the lumbar spine was performed. Bone and soft tissue window settings are submitted as well as coronal and sagittal reconstructions. CT DLP: 1499.4 mGycm COMPARISON: None FINDINGS: There are multilevel advanced lumbar spondylosis changes. There is no acute fracture or malalignment. No acute paraspinal soft tissue findings. IMPRESSION: No acute process.
[2023-11-27] MEDS: LIDOCAINE/EPINEPHR/TETRACAINE 5 ML BOTTLE TOPICAL ONE (21:26)
[2023-11-27] MEDS: SODIUM CHLORIDE 0.9% 1,000 ML IV STA (21:26)
[2023-11-27] MEDS ORDERED: ACETAMINOPHEN TAB 325 MG TAB PO PRN (22:21)
[2023-11-27] MEDS ORDERED: NALOXONE 0.4 MG/ML 1 ML VIAL IV PRN (22:21)
--- NOTE | 2023-11-27 22:22 | ED ---
General Adult HPI - General Source: patient, RN notes reviewed, old records reviewed Mode of arrival: ambulatory Limitations: no limitations <Brandon Sandoval - Last Filed: 11/27/23 22:43> <Ada Lang - Last Filed: 11/28/23 12:20> - General Chief complaint: Fall Stated complaint: Fall,Head Lac Time Seen by Provider: 11/27/23 18:24 - History of Present Illness Initial comments: Patient is a 78-year-old male who presents emergency department complaining of a fall from standing. Patient has a history of diabetic neuropathy in bilateral lower extremities on his feet. States he lost his balance because of this and fell from standing striking the back of his head at home. Denies loss of consciousness. Is on blood thinners. Has a laceration to his posterior scalp. Also endorses some neck pain as well as chronic lumbar spine pain. Patient also is concerned regarding his kidneys and is requesting blood work to evaluate. States he has chronic left flank pain that is remittent and currently at his [facility]. Presents for further evaluation at this time. Patient is on Xarelto. (Brandon Sandoval) - Related Data Home Medications Medication Instructions Recorded Confirmed DULoxetine HCL [Cymbalta] 60 mg PO BID 01/28/15 11/27/23 lamoTRIgine [LaMICtal] 150 mg PO BID 01/28/15 11/27/23 Albuterol Sulfate [Proair Hfa] 2 puff INHALATION RT-Q4H PRN 03/01/22 11/27/23 Atorvastatin [Lipitor] 20 mg PO DAILY 03/01/22 11/27/23 Pregabalin [Lyrica] 150 mg PO TID 03/01/22 11/27/23 Rivaroxaban [Xarelto] 20 mg PO W/SUPPER 03/01/22 11/27/23 buPROPion HCL [Wellbutrin XL] 300 mg PO DAILY 03/01/22 11/27/23 ALPRAZolam [Xanax] 1 mg PO TID PRN 11/27/23 11/27/23 ARIPiprazole [Abilify] 2 mg PO BID 11/27/23 11/27/23 Levothyroxine Sodium [Synthroid] 50 mcg PO DAILY 11/27/23 11/27/23 Losartan Potassium 100 mg PO DAILY 11/27/23 11/27/23 Metoprolol Succinate (ER) [Toprol 25 mg PO HS 11/27/23 11/27/23 Xl] Metoprolol Succinate (ER) [Toprol 50 mg PO DAILY 11/27/23 11/27/23 Xl] Oxybutynin Chloride [oxyBUTYnin 10 mg PO BID 11/27/23 11/27/23 chloride ER] Sotalol [Betapace] 120 mg PO BID 11/27/23 11/27/23 oxyCODONE HCL [oxyCODONE HCL (IR)] 15 mg PO Q6H PRN 11/27/23 11/27/23 Allergies Allergy/AdvReac Type Severity Reaction Status Date / Time No Known Allergies Allergy Verified 11/27/23 22:52 Review of Systems ROS Other: All systems not noted in ROS Statement are negative. <Brandon Sandoval - Last Filed: 11/27/23 22:43> ROS Other: All systems not noted in ROS Statement are negative. <Ada Lang - Last Filed: 11/28/23 12:20> ROS Statement: Those systems with pertinent positive or pertinent negative responses have been documented in the HPI. Review of Systems: CONST: Denies fever EYES: Denies blurry vision ENT: Denies nasal congestion C/V: Denies Chest pain RESP: Denies shortness of breath GI: Denies abdominal pain : Denies dysuria SKIN: Endorses scalp laceration MSK: Endorses neck and spine pain, chronic. NEURO: Denies headache (Brandon Sandoval) Past Medical History Past Medical History: Atrial Fibrillation, COPD, Hypertension, Osteoarthritis (OA), Sleep Apnea/CPAP/BIPAP Additional Past Medical History / Comment(s): hx of prostate cancer with prost atectomy. Neuropathy, Cardiac cath History of Any Multi-Drug Resistant Organisms: None Reported Past Surgical History: Back Surgery, Heart Catheterization, Joint Replacement Additional Past Surgical History / Comment(s): (B) hip replecement, (B)knee replacement, laminectomy x6, prostatectomy, spinal cord decompression Past Anesthesia/Blood Transfusion Reactions: No Reported Reaction Additional Past Anesthesia/Blood Transfusion Reaction / Comment(s): Pt has only received own blood donated prior to surgery. Past Psychological History: Depression Smoking Status: Never smoker Past Alcohol Use History: Occasional Past Drug Use History: None Reported - Past Family History Father Family Medical History: Congestive Heart Failure (CHF), Hypertension, Myocardial Infarction (AK) Additional Family Medical History / Comment(s): Father of a AK at age 89 yrs. Mother Family Medical History: Cancer Additional Family Medical History / Comment(s): Mother had multiple myeloma. She at age 68 yrs. <JaimeBrandon - Last Filed: 11/27/23 22:43> General Exam Limitations: no limitations <JaimeBrandon - Last Filed: 11/27/23 22:43> - General Exam Comments Initial Comments: General: Appears in no acute distress. HEAD: Negative Voss sign. Negative raccoon eyes. Patient does have a laceration to the posterior scalp. Will require jojo. EYES: PERRLA, EOMI, conjunctiva normal, no discharge. Pupils are 3 mm and equal bilaterally. ENT: Hearing grossly intact, normal oropharynx. RESPIRATORY: Clear breath sounds bilaterally. No wheezes, rales, or rhonchi. C/V: Regular rate and rhythm. S1 and S2 auscultated, no edema, peripheral pulses 2+ and intact throughout ABD: Abd is soft, nontender, nondistended EXT: Mild midline tenderness palpation in the lumbar spine. No significant midline cervical or thoracic spine tenderness to palpation. No extremity pain on palpation. No step-offs or deformities of the spine. SKIN: No rashes or lesions observed on exposed skin. NEURO: Alert and oriented x 4. Cranial nerves II-XII intact. No acute focal sensory or strength deficits. GCS of 15. (Brandon Sandoval) Course Vital Signs 11/27/23 11/27/23 17:20 23:30 Temperature 96.8 F L Pulse Rate 66 Pulse Rate [ 60 Pulse Oximetery ] Respiratory 18 16 Rate Blood Pressure 142/78 Blood Pressure 105/64 [Right Arm] O2 Sat by Pulse 98 93 L Oximetry Procedures - Laceration Laceration #1 Consent Obtained: verbal consent Indication: laceration Site: scalp Size (cm): 4 Description: linear Pre-repair: wound explored Type of Sutures: other (jojo) Number of Sutures: 3 Patient Tolerated Procedure: well, no complications <Ada Lang - Last Filed: 11/28/23 12:20> Medical Decision Making - Lab Data Result diagrams: 11/27/23 19:04 11/27/23 19:04 <Brandon Sandoval - Last Filed: 11/27/23 22:43> - Lab Data Result diagrams: 11/28/23 05:25 11/28/23 05:25 <Ada Lang - Last Filed: 11/28/23 12:20> - Medical Decision Making Was pt. sent in by a medical professional or institution (, [facility], SEE SUPERVISOR, urgent care, hospital, or retirement...) When possible be specific @ -No Did you speak to anyone other than the patient for history (EMS, parent, family, police, friend...)? What history was obtained from this source @ -No Did you review nursing and triage notes (agree or disagree)? Why? @ -I reviewed and agree with nursing and triage notes Were old charts reviewed (outside hosp., previous admission, EMS record, old EKG, old radiological studies, urgent care reports/EKG's, retirement records)? Report findings @ -Old chart reviewed Differential Diagnosis (chest pain, altered mental status, abdominal pain women, abdominal pain men, vaginal bleeding, weakness, fever, dyspnea, syncope, headache, dizziness, GI bleed, back pain, seizure, CVA, palpatations, mental health, musculoskeletal)? @ -Differential Musculoskeletal Muscular strain, contusion, ligament sprain, fracture, arthritis, septic arthritis, bursitis, cellulitis, muscle spasm, nerve compression, DVT, arterial occlusion, herpes zoster, electrolyte abnormality, tumor.... This is not meant to be in all inclusive list. Also includes intracranial injury or trauma. EKG interpreted by me (3pts min.). @ -None done X-rays interpreted by me (1pt min.). @ -Chest x-ray, pelvis x-ray reveals no obvious acute traumatic injury. CT interpreted by me (1pt min.). @ -CT brain, C-spine, lumbar spine negative for any obvious acute traumatic injury. U/S interpreted by me (1pt. min.). @ -None done What testing was considered but not performed or refused? (CT, X-rays, U/S, labs)? Why? @ -None What meds were considered but not given or refused? Why? @ -None Did you discuss the management of the patient with other professionals (professionals i.e. , PA, SEE SUPERVISOR, lab, RT, psych nurse, licensed social worker, general worker, teacher, first aid officer, test case developer)? Give summary @ -I spoke with Dr. Galarza who accepted the admission. Was smoking cessation discussed for >3mins.? @ -No Was critical care preformed (if so, how long)? @ -No Were there social determinants of health that impacted care today? How? (Homelessness, low income, unemployed, alcoholism, drug addiction, transportation, low edu. Level, literacy, decrease access to med. care, snf, rehab)? @ -No Was there de-escalation of care discussed even if they declined (Discuss DNR or withdrawal of care, Hospice)? DNR status @ -No What co-morbidities impacted this encounter? (DM, HTN, Smoking, COPD, CAD, Cancer, CVA, ARF, Chemo, Hep., AIDS, mental health diagnosis, sleep apnea, morbid obesity)? @ -None Was patient admitted / discharged? Hospital course, mention meds given and route, prescriptions, significant lab abnormalities, going to OR and other pertinent info. @ -Patient presents for fall on blood thinners. Does not meet trauma activation criteria. Vital signs within acceptable limits. Will obtain CT imaging the head, C-spine, lumbar spine as well as chest and pelvis x-ray. Patient is requesting basic labs which will be obtained as well. Patient was in agreement this plan. Vital signs within acceptable limits. Was a mechanical fall. He has a laceration which is repaired by assisting midlevel provider. Please see her note for further details. [place] placed. Vital signs within acceptable limits. Patient be symptomatically treated with IV analgesia medications, tetanus booster. Imaging negative for any obvious acute traumatic injury. Patient's laboratory studies remarkable for what appears to be a acute kidney injury with a BUN of 36 and creatinine of 2.16 which appears to be new. Urine is still pending. I discussed results with patient. Patient tolerated closure of his laceration well. I would like to admit the patient for findings on laboratory studies. We will obtain an ultrasound of the kidneys and bladder. He was in agreement this plan. He will be given 1 L fluid bolus. I spoke with Dr. Galarza who accepted the admission. Undiagnosed new problem with uncertain prognosis? @ -No Drug Therapy requiring intensive monitoring for toxicity (Heparin, Nitro, Insulin, Cardizem)? @ -No Were any procedures done? @ -No Diagnosis/symptom? @ -Acute kidney injury, fall, scalp laceration status post jojo Acute, or Chronic, or Acute on Chronic? @ -Acute Uncomplicated (without systemic symptoms) or Complicated (systemic symptoms)? @ -Complicated Side effects of treatment? @ -No Exacerbation, Progression, or Severe Exacerbation? @ -No Poses a threat to life or bodily function? How? (Chest pain, USA, AK, pneumonia, PE, COPD, DKA, ARF, appy, cholecystitis, CVA, Diverticulitis, Homicidal, Suicidal, threat to staff... and all critical care pts) @ -Possibly (Brandon Sandoval) I performed a laceration repair for this patient. LET was applied, waited approximately 10 to 15 minutes. Wound was irrigated. 3 jojo applied. See procedure note for further details (Ada Lang) - Lab Data Lab Results 11/27/23 11/27/23 11/27/23 Range/Units 19:04 19:04 19:04 WBC 10.0 (3.8-10.6) k/uL RBC 4.73 (4.30-5.90) m/uL Hgb 13.2 (13.0-17.5) gm/dL Hct 41.9 (39.0-53.0) % MCV 88.7 (80.0-100.0) fL MCH 28.0 (25.0-35.0) pg MCHC 31.5 (31.0-37.0) g/dL RDW 14.8 (11.5-15.5) % Plt Count 271 (150-450) k/uL MPV 8.3 Hypochromasia Slight PT 10.8 (10.0-12.5) sec INR 1.0 (<1.2) APTT 30.7 H (22.0-30.0) sec Sodium 131 L (137-145) mmol/L Potassium 5.0 (3.5-5.1) mmol/L Chloride 100 (98-107) mmol/L Carbon Dioxide 24 (22-30) mmol/L Anion Gap 7 mmol/L BUN 36 H (9-20) mg/dL Creatinine 2.16 H (0.66-1.25) mg/dL Est GFR (CKD-EPI)AfAm 33 (>60 ml/min/1.73 sqM) Est GFR (CKD-EPI)NonAf 29 (>60 ml/min/1.73 sqM) Glucose 96 (74-99) mg/dL Calcium 8.9 (8.4-10.2) mg/dL Disposition Time of Disposition: 21:59 <Brandon Sandoval - Last Filed: 11/27/23 22:43> <Ada Lang - Last Filed: 11/28/23 12:20> Clinical Impression: EVELYN (acute kidney injury), Fall, Scalp laceration Disposition: ADMITTED IP TO THIS HOSP Condition: Stable
--- NOTE | 2023-11-27 23:37 | US ---
EXAM: US Retroperitoneal Limited, Renal CLINICAL HISTORY: ITS.REASON US Reason: theron TECHNIQUE: Real-time limited ultrasound of the retroperitoneum with image documentation. COMPARISON: Renal ultrasound 04/13/2019 FINDINGS: Right kidney: The right kidney measures 10.3 x 5.5 x 6.1 cm. No stones. No hydronephrosis. Left kidney: The left kidney measures 9.3 x 5.2 x 3.9 cm. Evaluation of the left kidney is limited by rib shadowing, bowel gas and patient body habitus. No obvious hydronephrosis. Bladder: The bladder is mild to moderately distended. No bladder wall thickening or bladder stones. No ureteral jets noted. IMPRESSION: Negative sonographic evaluation of the kidneys. No hydronephrosis. Evaluation of the left kidney is somewhat limited secondary to technical factors noted above. The previously noted cyst involving the left kidney is not definitively identified.
[2023-11-28 00:42] LABS: Appearance,Urine Clear (Clear); Bilirubin,Urine Negative (Negative); Blood,Urine Negative (Negative); Color,Urine Light Yellow; Glucose,Urine (UA) Negative (Negative); Ketones,Urine Negative (Negative); Leukocyte Esterase,Urine Negative (Negative); Nitrite,Urine Negative (Negative); Protein,Urine Negative (Negative); Specific Gravity,Urine 1.011 (1.001-1.035); Urobilinogen,Urine <2.0 mg/dL (<2.0)
[2023-11-28 05:41] LABS: Basophils # (A) 0.1 k/uL (0-0.2); Basophils % (A) 1 %; Eosinophils # (A) 0.3 k/uL (0-0.7); Eosinophils % (A) 5 %; HCT 37.3 % (39.0-53.0); HGB 11.9 gm/dL (13.0-17.5); Hypochromasia Slight; Lymphocytes # (A) 1.4 k/uL (1.0-4.8); Lymphocytes % (A) 20 %; MCH 28.6 pg (25.0-35.0); MCV 89.5 fL (80.0-100.0); Mean Platelet Volume 7.6; Monocytes # (A) 0.7 k/uL (0-1.0); Monocytes % (A) 10 %; Neutrophils # (A) 4.2 k/uL (1.3-7.7); Neutrophils % (A) 62 %; Platelet Count 216 k/uL (150-450); RBC 4.17 m/uL (4.30-5.90); RDW 14.4 % (11.5-15.5); WBC 6.8 k/uL (3.8-10.6)
[2023-11-28 05:53] LABS: African American GFR (CKD) 52 (>60 ml/min/1.73 sqM); Anion Gap 2 mmol/L; Blood Urea Nitrogen 31 mg/dL (9-20); Calcium 8.4 mg/dL (8.4-10.2); Carbon Dioxide 25 mmol/L (22-30); Chloride 105 mmol/L (98-107); Glucose 94 mg/dL (74-99); Non-African American GFR(CKD) 45 (>60 ml/min/1.73 sqM); Potassium 4.4 mmol/L (3.5-5.1); Sodium 132 mmol/L (137-145)
[2023-11-28] MEDS ORDERED: ALBUTEROL NEBULIZED 2.5 MG/3 ML INHALATION PRN (13:19)
[2023-11-28] MEDS: PREGABALIN 75 MG CAP PO SCH (16:19)
[2023-11-28] MEDS: RIVAROXABAN 20 MG TAB PO SCH (16:19)
[2023-11-28] MEDS: ALPRAZolam 1 MG TAB PO PRN (16:35)
[2023-11-28] MEDS: DULoxetine HCL 60 MG CAPSULE.DR PO SCH (21:41)
[2023-11-28] MEDS: lamoTRIgine 100 MG TAB PO SCH (21:41)
[2023-11-28] MEDS: ARIPiprazole 2 MG TAB PO SCH (21:41)
[2023-11-28] MEDS: METOPROLOL SUCCINATE (ER) 25 MG TAB.ER.24H PO SCH (21:45)
[2023-11-28] MEDS: SOTALOL 120 MG TAB PO SCH (21:46)
[2023-11-28] MEDS: OXYBUTYNIN 10 MG TAB.ER.24 PO SCH (21:46)
[2023-11-29] MEDS: LEVOTHYROXINE 50 MCG TAB PO SCH (06:03)
[2023-11-29] MEDS: buPROPion XL 300 MG TAB.ER.24H PO SCH (10:13)
[2023-11-29] MEDS: ATORVASTATIN 20 MG TAB PO SCH (10:13)
[2023-11-29] MEDS: METOPROLOL SUCCINATE (ER) 50 MG TAB.ER.24H PO SCH (10:13)
[2023-11-29] MEDS: LOSARTAN 50 MG TAB PO SCH (10:13)
[2023-11-29 11:40] LABS: African American GFR (CKD) >90 (>60 ml/min/1.73 sqM); Anion Gap 3 mmol/L; Blood Urea Nitrogen 20 mg/dL (9-20); Calcium 8.7 mg/dL (8.4-10.2); Carbon Dioxide 26 mmol/L (22-30); Chloride 106 mmol/L (98-107); Glucose 101 mg/dL (74-99); Non-African American GFR(CKD) 85 (>60 ml/min/1.73 sqM); Potassium 4.6 mmol/L (3.5-5.1); Sodium 135 mmol/L (137-145)
[2023-11-29 15:45] VITALS: BP 97/57; PULSE 64; RESP 19; TEMP 98
--- NOTE | 2023-12-01 00:49 | DS ---
DISCHARGE SUMMARY CHIEF COMPLAINT: Fall with head injury. HISTORY OF PRESENT ILLNESS AND PHYSICAL EXAM: Details of this man's history and physical can be found in the initial workup. LABORATORY STUDIES: While he is in the hospital, he had laboratory studies, details of which can be found in the laboratory section of his chart. COURSE IN THE HOSPITAL: After admission, he was placed on bedrest and started on intravenous fluids and frequent monitoring of his neurologic status and vital signs. He had no issues and he is doing well. It was felt that he could return home on the on his usual activity, diet, medication. It was felt that dehydration probably had something to do with his fall and that his GFR had gone down, but was quickly reestablished with fluids. FINAL DIAGNOSES: 1. Fall with closed head injury. 2. Dehydration. 3. Prerenal azotemia. 4. Cardiomyopathy and congestive heart failure. OPERATIONS: None. CONSULTATION: None. He is improved. MMDRISSL / GIULIANAN: [id number] /
--- NOTE | 2023-12-01 00:49 | PN ---
PROGRESS NOTE DATE OF SERVICE: 11/28/2023 CHIEF COMPLAINT: Fall with head injury and history of congestive heart failure. HISTORY OF PRESENT ILLNESS: This gentleman is doing fairly well. He does not have any headache, dizziness, focal neurologic deficits, etc. PHYSICAL EXAMINATION: HEAD, EARS, EYES, NOSE, MOUTH AND THROAT: Normal. CHEST: Clear. CARDIAC: Normal. ABDOMEN: Soft and nontender. IMPRESSION: 1. Fall with head injury. 2. Acute on chronic congestive heart failure. 3. Encephalopathy. PLAN: Increase activity and diet. MMODL / IJN: [id number] /
--- NOTE | 2023-12-01 01:49 | HP ---
HISTORY AND PHYSICAL CHIEF COMPLAINT: Ataxia and frequent falling. 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 He has had numerous problems over the last number of years with blood pressure issues, myocardial infarction, arrhythmias, rheumatoid arthritis, and ataxia. He apparently was at home trying to go up the step with his walker and fell backwards and struck his head. He was not rendered unconscious. He presented to the emergency room with no history of seizure or headache. REVIEW OF SYSTEMS: He has had no confusion, change in vision, hearing, nausea, vomiting, chest pain, abdominal pain, syncope, etc. He was not incontinent. PAST MEDICAL HISTORY: Essentially unremarkable otherwise. FAMILY HISTORY: Essentially unremarkable otherwise. PERSONAL AND SOCIAL HISTORIES: Essentially unremarkable otherwise. PHYSICAL EXAMINATION: VITAL SIGNS: Normal. HEAD, EARS, EYES, NOSE, MOUTH AND THROAT: Normal. Pupils are equal and round. His gaze was conjugate. NECK: Neck is supple. CHEST: The chest is clear. CARDIAC: Demonstrated atrial fibrillation and the abdomen was soft and nontender without visceromegaly or masses. ABDOMEN: Bowel sounds are present. EXTREMITIES: Normal. NEUROLOGIC: He is intact. DIAGNOSES: He is admitted with the hospital diagnosis of: 1. Fall with closed head injury. 2. Coronary artery disease. 3. Cardiomyopathy. 4. Congestive heart failure. 5. Atrial fibrillation. 6. Bipolar depression. PLAN: 1. Bedrest. 2. IV fluids. 3. Monitoring of his neurologic status and vital signs. MMODL / IJN: [id number] /
== END 2023-11-29 17:16 | disposition home or self-care (01) ==
LOC: EC 17:03 → 6NMEDSUR 22:22 → 5NMEDONC 23:43
PROVIDERS: ADMIT Family Medicine; ATTEND Family Medicine
DX: S01.01XA Laceration without foreign body of scalp, initial encounter (principal); E86.0 Dehydration; E11.40 Type 2 diabetes mellitus with diabetic neuropathy, unspecified; I11.0 Hypertensive heart disease with heart failure; I50.9 Heart failure, unspecified; I25.10 Atherosclerotic heart disease of native coronary artery without angina pectoris; M54.2 Cervicalgia; G89.29 Other chronic pain; M54.50 Low back pain, unspecified; R10.9 Unspecified abdominal pain; I48.91 Unspecified atrial fibrillation; J44.9 Chronic obstructive pulmonary disease, unspecified; F31.9 Bipolar disorder, unspecified; M19.90 Unspecified osteoarthritis, unspecified site; G47.30 Sleep apnea, unspecified; I25.2 Old myocardial infarction; M06.9 Rheumatoid arthritis, unspecified; R27.0 Ataxia, unspecified; I42.9 Cardiomyopathy, unspecified; W18.39XA Other fall on same level, initial encounter; Z23 Encounter for immunization; Z85.46 Personal history of malignant neoplasm of prostate; Z98.61 Coronary angioplasty status; Z79.899 Other long term (current) drug therapy; Z79.890 Hormone replacement therapy; Z79.01 Long term (current) use of anticoagulants
CPT/HCPCS: 12002; 96376; 96361; 96365; 96366 ×2; 96367; 96375; 90471; 99285; 36415; 80048 ×3; 85025; 85027; 85610; 85730; 81003; 72170; 71046; 76770; 72125; 72131; 70450; 90715; G0378 ×3; J2270

== ENCOUNTER 2023-12-01 09:51 | Emergency (ER) | payer MEDICARE ==
[2023-12-01 10:03] VITALS: TEMP 98
--- NOTE | 2023-12-01 10:05 | ED ---
Weakness HPI - General Chief complaint: Fall Stated complaint: Fall Time Seen by Provider: 12/01/23 09:58 Source: patient, RN notes reviewed, old records reviewed, Caregiver Mode of arrival: EMS Limitations: no limitations - History of Present Illness Initial comments: This is a 78-year-old male with difficult to convey history above presenting for evaluation of pain weakness pain and weakness after a fall with severe chest pain and back pain. Patient does have some bleeding from the back of his head from a wound that is already stapled that he had recently MD Complaint: generalized weakness, focal weakness -: days(s) Location: generalized Consistency: constant, intermittent Worsens with: none Context: history of similar Associated Symptoms: denies other symptoms - Related Data Home Medications Medication Instructions Recorded Confirmed DULoxetine HCL [Cymbalta] 60 mg PO BID 01/28/15 12/01/23 lamoTRIgine [LaMICtal] 150 mg PO BID 01/28/15 12/01/23 Albuterol Sulfate [Proair Hfa] 2 puff INHALATION RT-Q4H PRN 03/01/22 12/01/23 Atorvastatin [Lipitor] 20 mg PO DAILY 03/01/22 12/01/23 Pregabalin [Lyrica] 150 mg PO TID 03/01/22 12/01/23 Rivaroxaban [Xarelto] 20 mg PO W/SUPPER 03/01/22 12/01/23 buPROPion HCL [Wellbutrin XL] 300 mg PO DAILY 03/01/22 12/01/23 ALPRAZolam [Xanax] 1 mg PO TID PRN 11/27/23 12/01/23 ARIPiprazole [Abilify] 2 mg PO BID 11/27/23 12/01/23 Levothyroxine Sodium [Synthroid] 50 mcg PO DAILY 11/27/23 12/01/23 Losartan Potassium 100 mg PO DAILY 11/27/23 12/01/23 Metoprolol Succinate (ER) [Toprol 25 mg PO HS 11/27/23 12/01/23 XL] Metoprolol Succinate (ER) [Toprol 50 mg PO DAILY 11/27/23 12/01/23 XL] Oxybutynin Chloride [oxyBUTYnin 10 mg PO BID 11/27/23 12/01/23 chloride ER] Sotalol [Betapace] 120 mg PO BID 11/27/23 12/01/23 oxyCODONE HCL [oxyCODONE HCL (IR)] 15 mg PO Q6H PRN 11/27/23 12/01/23 Allergies Allergy/AdvReac Type Severity Reaction Status Date / Time No Known Allergies Allergy Verified 12/01/23 12:40 Review of Systems ROS Statement: Those systems with pertinent positive or pertinent negative responses have been documented in the HPI. ROS Other: All systems not noted in ROS Statement are negative. Past Medical History Past Medical History: Atrial Fibrillation, COPD, Hypertension, Osteoarthritis (OA), Sleep Apnea/CPAP/BIPAP Additional Past Medical History / Comment(s): hx of prostate cancer with prostatectomy. Neuropathy, Cardiac cath History of Any Multi-Drug Resistant Organisms: None Reported Past Surgical History: Back Surgery, Heart Catheterization, Joint Replacement Additional Past Surgical History / Comment(s): (B) hip replecement, (B)knee replacement, laminectomy x6, prostatectomy, spinal cord decompression Past Anesthesia/Blood Transfusion Reactions: No Reported Reaction Additional Past Anesthesia/Blood Transfusion Reaction / Comment(s): Pt has only received own blood donated prior to surgery. Past Psychological History: Depression Smoking Status: Never smoker Past Alcohol Use History: Occasional Past Drug Use History: None Reported - Past Family History Father Family Medical History: Congestive Heart Failure (CHF), Hypertension, Myocardial Infarction (IL) Additional Family Medical History / Comment(s): Father of a IL at age 89 yrs. Mother Family Medical History: Cancer Additional Family Medical History / Comment(s): Mother had multiple myeloma. She at age 68 yrs. General Exam Limitations: no limitations General appearance: alert, in no apparent distress Head exam: Present: atraumatic, normocephalic, normal inspection Eye exam: Present: normal appearance, PERRL, EOMI. Absent: scleral icterus, conjunctival injection, periorbital swelling ENT exam: Present: normal exam, mucous membranes moist Neck exam: Present: normal inspection. Absent: tenderness, meningismus, lymphadenopathy Respiratory exam: Present: normal lung sounds bilaterally. Absent: respiratory distress, wheezes, rales, rhonchi, stridor Cardiovascular Exam: Present: regular rate, normal rhythm, normal heart sounds. Absent: systolic murmur, diastolic murmur, rubs, gallop, clicks GI/Abdominal exam: Present: soft, normal bowel sounds. Absent: distended, te nderness, guarding, rebound, rigid Extremities exam: Present: normal inspection, full ROM, normal capillary refill. Absent: tenderness, pedal edema, joint swelling, calf tenderness Back exam: Present: normal inspection Neurological exam: Present: alert, oriented X3, CN II-XII intact Psychiatric exam: Present: normal affect, normal mood Skin exam: Present: warm, dry, intact, normal color. Absent: rash Course Vital Signs 12/01/23 12/01/23 12/01/23 09:54 09:58 10:58 Temperature 98 F Pulse Rate 60 58 L 58 L Respiratory 16 16 20 Rate Blood Pressure 125/69 125/68 130/60 O2 Sat by Pulse 95 98 98 Oximetry 12/01/23 12/01/23 14:18 16:17 Temperature Pulse Rate 61 67 Respiratory 12 18 Rate Blood Pressure 163/90 164/89 O2 Sat by Pulse 99 98 Oximetry - Reevaluation(s) Reevaluation #1: Medical records reviewed Reevaluation #2: Patient symptoms are unchanged Reevaluation #3: Patient informed of results and questions answered Reevaluation #4: Was pt. sent in by a medical professional or institution (, PA, OBSTETRICS AND GYNECOLOGY PROFESSOR, urgent care, hospital, or half-way...) When possible be specific @ -no Did you speak to anyone other than the patient for history (EMS, parent, family, police, friend...)? What history was obtained from this source @ -no Did you review nursing and triage notes (agree or disagree)? Why? @ -agree Are old charts reviewed (outside hosp., previous admission, EMS record, old EKG, old radiological studies, urgent care reports/EKG's, half-way records)? Report findings @ -yes Differential Diagnosis (chest pain, altered mental status, abdominal pain women, abdominal pain men, vaginal bleeding, weakness, fever, dyspnea, syncope, headache, dizziness, GI bleed, back pain, seizure, CVA, palpatations, mental health, musculoskeletal)? @ -prior EKG interpreted by me (3pts min.). @ -yes X-rays interpreted by me (1pt min.). @ -yes negative for acute disease CT interpreted by me (1pt min.). @ -n yes negative for acute disease U/S interpreted by me (1pt. min.). @ -no What testing was considered but not performed or refused? (CT, X-rays, U/S, labs)? Why? @ -none What meds were considered but not given or refused? Why? @ -none Did you discuss the management of the patient with other professionals (professionals i.e. , PA, OBSTETRICS AND GYNECOLOGY PROFESSOR, lab, RT, psych nurse, social work case manager, hat brusher machine, teacher, health officer, social work case manager)? Give summary @ -no Was smoking cessation discussed for >3mins.? @ -no Was critical care preformed (if so, how long)? @ -no Were there social determinants of health that impacted care today? How? (Homeles sness, low income, unemployed, alcoholism, drug addiction, transportation, low edu. Level, literacy, decrease access to med. care, snf, rehab)? @ -none Was there de-escalation of care discussed even if they declined (Discuss DNR or withdrawal of care, Hospice)? DNR status @ -no What co-morbidities impacted this encounter? (DM, HTN, Smoking, COPD, CAD, Cancer, CVA, ARF, Chemo, Hep., AIDS, mental health diagnosis, sleep apnea, morbid obesity)? @ -none Was patient admitted / discharged? Hospital course, mention meds given and route, prescriptions, significant lab abnormalities, going to OR and other pertinent info. @ - 78 male to ER for evaluation of fall, found to have back pain and weakness but no traumatic injury, patient has no findings here in the ER and can be discharged Discharge Undiagnosed new problem with uncertain prognosis? @ -no Drug Therapy requiring intensive monitoring for toxicity (Heparin, Nitro, Insulin, Cardizem)? @ -no Were any procedures done? @ -no Diagnosis/symptom? @ -Back pain weakness Acute, or Chronic, or Acute on Chronic? @ -Acute Uncomplicated (without systemic symptoms) or Complicated (systemic symptoms)? @ -Complicated Side effects of treatment? @ -no Exacerbation, Progression, or Severe Exacerbation? @ -exacerbation Poses a threat to life or bodily function? How? (Chest pain, USA, IL, pneumonia, PE, COPD, DKA, ARF, appy, cholecystitis, CVA, Diverticulitis, Homicidal, Suicidal, threat to staff... and all critical care pts) @ -yes Reevaluation #5: Differential Weakness: Hypoglycemia, shock, sepsis, hyponatremia, anemia, infection, IL, ETOH, adverse medicine reaction, overdose, stroke, this is not meant to be an all-inclusive list. EKG Findings - EKG Comments: EKG Findings:: EKG is sinus 60 MI 238 QRS 115 QTc 430 - EKG Results: EKG: interpreted by OWEN Medical Decision Making - Medical Decision Making 78 male to ER for evaluation of fall, found to have back pain and weakness but no traumatic injury, patient has no findings here in the ER and can be discharged - Lab Data Result diagrams: 12/01/23 10:07 12/01/23 10:07 Lab Results 12/01/23 12/01/23 12/01/23 Range/Units 10:07 10:07 10:07 WBC 6.3 (3.8-10.6) k/uL RBC 4.40 (4.30-5.90) m/uL Hgb 12.2 L (13.0-17.5) gm/dL Hct 39.5 (39.0-53.0) % MCV 89.9 (80.0-100.0) fL MCH 27.7 (25.0-35.0) pg MCHC 30.9 L (31.0-37.0) g/dL RDW 14.4 (11.5-15.5) % Plt Count 235 (150-450) k/uL MPV 7.9 Neutrophils % 65 % Lymphocytes % 18 % Monocytes % 8 % Eosinophils % 5 % Basophils % 1 % Neutrophils # 4.1 (1.3-7.7) k/uL Lymphocytes # 1.1 (1.0-4.8) k/uL Monocytes # 0.5 (0-1.0) k/uL Eosinophils # 0.3 (0-0.7) k/uL Basophils # 0.1 (0-0.2) k/uL Hypochromasia Slight PT 13.8 H (10.0-12.5) sec INR 1.3 H (<1.2) APTT 40.4 H (22.0-30.0) sec Sodium 138 (137-145) mmol/L Potassium 5.0 (3.5-5.1) mmol/L Chloride 106 (98-107) mmol/L Carbon Dioxide 29 (22-30) mmol/L Anion Gap 3 mmol/L BUN 32 H (9-20) mg/dL Creatinine 0.96 (0.66-1.25) mg/dL Est GFR (CKD-EPI)AfAm 89 (>60 ml/min/1.73 sqM) Est GFR (CKD-EPI)NonAf 77 (>60 ml/min/1.73 sqM) Glucose 96 (74-99) mg/dL Plasma Lactic Acid Caden (0.7-2.0) mmol/L Calcium 8.7 (8.4-10.2) mg/dL Phosphorus 4.1 (2.5-4.5) mg/dL Magnesium 1.8 (1.6-2.3) mg/dL Total Bilirubin 0.5 (0.2-1.3) mg/dL AST 40 (17-59) U/L ALT 22 (4-49) U/L Alkaline Phosphatase 82 (38-126) U/L Troponin I (0.000-0.034) ng/mL NT-Pro-B Natriuret Pep 562 pg/mL Total Protein 6.2 L (6.3-8.2) g/dL Albumin 3.4 L (3.5-5.0) g/dL 12/01/23 12/01/23 Range/Units 10:07 10:07 WBC (3.8-10.6) k/uL RBC (4.30-5.90) m/uL Hgb (13.0-17.5) gm/dL Hct (39.0-53.0) % MCV (80.0-100.0) fL MCH (25.0-35.0) pg MCHC (31.0-37.0) g/dL RDW (11.5-15.5) % Plt Count (150-450) k/uL MPV Neutrophils % % Lymphocytes % % Monocytes % % Eosinophils % % Basophils % % Neutrophils # (1.3-7.7) k/uL Lymphocytes # (1.0-4.8) k/uL Monocytes # (0-1.0) k/uL Eosinophils # (0-0.7) k/uL Basophils # (0-0.2) k/uL Hypochromasia PT (10.0-12.5) sec INR (<1.2) APTT (22.0-30.0) sec Sodium (137-145) mmol/L Potassium (3.5-5.1) mmol/L Chloride (98-107) mmol/L Carbon Dioxide (22-30) mmol/L Anion Gap mmol/L BUN (9-20) mg/dL Creatinine (0.66-1.25) mg/dL Est GFR (CKD-EPI)AfAm (>60 ml/min/1.73 sqM) Est GFR (CKD-EPI)NonAf (>60 ml/min/1.73 sqM) Glucose (74-99) mg/dL Plasma Lactic Acid Caden 0.9 (0.7-2.0) mmol/L Calcium (8.4-10.2) mg/dL Phosphorus (2.5-4.5) mg/dL Magnesium (1.6-2.3) mg/dL Total Bilirubin (0.2-1.3) mg/dL AST (17-59) U/L ALT (4-49) U/L Alkaline Phosphatase (38-126) U/L Troponin I <0.012 (0.000-0.034) ng/mL NT-Pro-B Natriuret Pep pg/mL Total Protein (6.3-8.2) g/dL Albumin (3.5-5.0) g/dL - EKG Data -: EKG Interpreted by Ia - Radiology Data Radiology results: report reviewed (CT brain C-spine chest x-rays of thoracic spine and spine are negative for traumatic injury or acute disease), image re viewed Disposition Clinical Impression: Fall, Back pain Disposition: HOME SELF-CARE Condition: Good Instructions (If sedation given, give patient instructions): Fall Prevention for Older Adults (ED) Is patient prescribed a controlled substance at d/c from ED?: No Referrals: Enoch Galarza MD [Primary Care Provider] - 1-2 days Time of Disposition: 15:30
[2023-12-01] MEDS: SODIUM CHLORIDE 0.9% 1,000 ML IV STA (10:36)
[2023-12-01 10:39] LABS: Basophils # (A) 0.1 k/uL (0-0.2); Basophils % (A) 1 %; Eosinophils # (A) 0.3 k/uL (0-0.7); Eosinophils % (A) 5 %; HCT 39.5 % (39.0-53.0); HGB 12.2 gm/dL (13.0-17.5); Hypochromasia Slight; Lymphocytes # (A) 1.1 k/uL (1.0-4.8); Lymphocytes % (A) 18 %; MCH 27.7 pg (25.0-35.0); MCHC 30.9 g/dL (31.0-37.0); MCV 89.9 fL (80.0-100.0); Mean Platelet Volume 7.9; Monocytes # (A) 0.5 k/uL (0-1.0); Monocytes % (A) 8 %; Neutrophils # (A) 4.1 k/uL (1.3-7.7); Neutrophils % (A) 65 %; Platelet Count 235 k/uL (150-450); RDW 14.4 % (11.5-15.5); WBC 6.3 k/uL (3.8-10.6)
[2023-12-01 10:46] LABS: INR 1.3 (<1.2); Partial Thromboplastin Time 40.4 sec (22.0-30.0); Prothrombin Time 13.8 sec (10.0-12.5)
--- NOTE | 2023-12-01 11:11 | CT ---
EXAMINATION TYPE: CT brain sara feldman con DATE OF EXAM: 12/01/2023 COMPARISON: 11/27/2023 HISTORY: Fall, headache CT DLP: 1591.4 mGycm, Automated exposure control for dose reduction was used. CONTRAST: Patient injected with 0 mL of Isovue 300. CT of the brain is performed utilizing 3 mm thick sections through the posterior fossa and 3 mm thick sections through the remaining calvarium. Study is performed within 24 hours of arrival to the hospital. No abnormal hyperdensity is present to suggest an acute intracranial hemorrhage. No mass lesion is evident. No acute infarcts are evident. Minimal periventricular white matter hypodensity may be present, like ly on the basis of chronic white matter ischemic changes. Ventricles and sulci are prominent for the patient age. Paranasal sinuses and mastoid air cells within the [id number] are clear. Antral sinuses are hypopl astic. IMPRESSIONS: 1. Minimal periventricular white matter ischemic-type changes. Mild age-related atrophy is present. CT cervical spine. COMPARISON: None CT of the cervical spine is performed in the axial plane at 2 mm thick sections. Reconstructed image s in the coronal, and sagittal plane are reviewed on the computer. No acute fractures are evident. Vertebral body alignment is normal. There is diffuse loss of disc height throughout the cervical spine. Small anterior vertebral body spu rs are noted. Vertebral body heights are preserved. No spinal canal stenosis is evident. Severe foraminal stenosis within the upper and mid cervical spine. This is greater on the left than t he right. Correlate with radicular symptoms. IMPRESSION: 1. Uncovertebral joint hypertrophy contributing to severe foraminal stenosis greater on the left. 2. Degenerative disc changes throughout the cervical spine. 3. No acute osseous abnormality radiographically apparent.
[2023-12-01 11:15] LABS: ALT 22 U/L (4-49); AST 40 U/L (17-59); African American GFR (CKD) 89 (>60 ml/min/1.73 sqM); Albumin 3.4 g/dL (3.5-5.0); Alkaline Phosphatase 82 U/L (38-126); Anion Gap 3 mmol/L; Blood Urea Nitrogen 32 mg/dL (9-20); Calcium 8.7 mg/dL (8.4-10.2); Carbon Dioxide 29 mmol/L (22-30); Chloride 106 mmol/L (98-107); Glucose 96 mg/dL (74-99); Magnesium 1.8 mg/dL (1.6-2.3); Non-African American GFR(CKD) 77 (>60 ml/min/1.73 sqM); Phosphorus 4.1 mg/dL (2.5-4.5); Sodium 138 mmol/L (137-145); Total Bilirubin 0.5 mg/dL (0.2-1.3); Total Protein 6.2 g/dL (6.3-8.2)
[2023-12-01 11:18] LABS: NT-Pro-B-Type Natriuretic Pept 562 pg/mL
[2023-12-01] MEDS: HYDROmorphone 1 MG/ML 1 ML SYRINGE IVP STA ×2 (11:29→15:10)
--- NOTE | 2023-12-01 13:11 | XR ---
EXAMINATION TYPE: XR thoracic spine 2V DATE OF EXAM: 12/01/2023 12:54 PM CLINICAL INDICATION:Male, 78 years old with history of reynolds; [facility] COMPARISON: None TECHNIQUE: XR thoracic spine 2V views of the spine in Frontal and lateral projections. FINDINGS: No evidence of acute fracture. There is scattered multilevel disk space narrowing without loss of ve rtebral body height. There is scoliosis alignment of the thoracic vertebral bodies with dextroscolios is T7 apex. Scattered osteophyte formation along the anterior and lateral aspects of the vertebral wili dies. Neural foramen are patent given limitations of this exam. Spinal canal appears patent. IMPRESSION: 1. No acute osseous pathology. 2. [id number] multilevel degeneration changes throughout the spine.
--- NOTE | 2023-12-01 13:11 | XR ---
EXAMINATION TYPE: XR chest 1V DATE OF EXAM: 12/01/2023 12:54 PM CLINICAL INDICATION:Male, 78 years old with history of reynolds; [facility] COMPARISON: Chest radiographs from 11/27/2023 TECHNIQUE: XR chest 1V Frontal view of the chest. FINDINGS: Lungs/Pleura: There is no evidence of pleural effusion, focal consolidation, or pneumothorax. Pulmonary vascularity: Unremarkable. Heart/mediastinum: Cardiomediastinal silhouette is unremarkable. Musculoskeletal: No acute osseous pathology. IMPRESSION: Low lung volumes with a generalized hazy appearance which could represent atelectasis versus pulmonar y edema correlate with serum BNP.
--- NOTE | 2023-12-01 13:12 | XR ---
EXAMINATION TYPE: XR pelvis AP view DATE OF EXAM: 12/01/2023 12:54 PM CLINICAL INDICATION:Male, 78 years old with history of reynolds; [facility] COMPARISON: None TECHNIQUE: The pelvis was examined in a single projection. FINDINGS: There is no evidence of fracture or dislocation. There is no soft tissue abnormality. No a bnormal calcifications are present. The spine appears intact. The hips appear intact. No significant degeneration. Bilateral hip arthroplasties appear intact. Surgical clips in the pelvis. Severe degene ration changes in the lower lumbar spine. IMPRESSION: 1. No acute osseous pathology. 2. Bilateral hip arthroplasties which appear intact. 3. Severe degeneration changes of the spine.
--- NOTE | 2023-12-01 15:34 | CT ---
EXAMINATION TYPE: CT angio chest CT DLP: 870.1 mGycm, Automated exposure control for dose reduction was used. DATE OF EXAM: 12/01/2023 2:42 PM COMPARISON: Chest radiograph from same day. CLINICAL INDICATION:Male, 78 years old with history of cp; pe TECHNIQUE/CONTRAST: CTA scan of the thorax is performed with IV Contrast, patient injected with 100 mL of Isovue 300, MIP images are created and reviewed these are created on a separate workstation.. FINDINGS: Pulmonary Artery: There is no evidence for a filling defect within the pulmonary vasculature to sugge st acute pulmonary embolism. The pulmonary artery is of normal size. Lungs/Pleura: Dependent basilar atelectasis in the posterior lung. 2 areas of nodular like opacities measuring 10 mm series 402 image 134. No evidence of focal consolidation, pleural effusion or pneumot horax. Airway: Large airways are patent. Heart: There is mildly enlarged for size. Vasculature: No evidence of aortic aneurysm. Mediastinum: No gross evidence of adenopathy. Musculoskeletal: Moderate degenerative disc disease changes are present throughout the thoracolumbar spine. Multiple left-sided rib fractures with callus formation. Scoliosis changes of the spine. Soft Tissues: Unremarkable. Lower neck: No significant findings. Upper Abdomen: Scattered hepatic probable cyst.. Small splenule present. IMPRESSION: 1. No evidence of pulmonary embolism. 2. Right lower lung posterior nodular opacity which may be partially due to atelectasis. Consider sh ort-term follow-up CT chest in 3 months to confirm finding/stability.
[2023-12-01 16:32] VITALS: BP 164/89; PULSE 67; RESP 18
== END 2023-12-01 16:20 | disposition home or self-care (01) ==
LOC: EC 09:51
DX: S29.9XXA Unspecified injury of thorax, initial encounter (principal); R53.1 Weakness; I10 Essential (primary) hypertension; J44.9 Chronic obstructive pulmonary disease, unspecified; I48.91 Unspecified atrial fibrillation; F32.A Depression, unspecified; M19.90 Unspecified osteoarthritis, unspecified site; Z79.01 Long term (current) use of anticoagulants; Z79.899 Other long term (current) drug therapy; W01.198A Fall on same level from slipping, tripping and stumbling with subsequent striking against other object, initial encounter; Y92.009 Unspecified place in unspecified non-institutional (private) residence as the place of occurrence of the external cause
CPT/HCPCS: 36415; 93005; 83880; 80053; 83605; 83735; 84100; 84484; 85025; 85610; 85730; 72070; 72170; 71045; 72125; 70450; 71275; 99285; 96374; 96376; 96361; J1170; Q9967

== ENCOUNTER → 2024-02-16 | Outpatient (CLI) | payer MEDICARE ==
[2024-02-16 12:27] LABS: African American GFR (CKD) 74 (>60 ml/min/1.73 sqM); Blood Urea Nitrogen 25 mg/dL (9-20); Non-African American GFR(CKD) 64 (>60 ml/min/1.73 sqM)
== END | disposition home or self-care (01) ==
LOC: LABWHC1 11:03
PROVIDERS: ATTEND Otolaryngology
DX: Z13.9 Encounter for screening, unspecified (principal)
CPT/HCPCS: 36415; 82565; 84520

== ENCOUNTER 2024-04-26 23:37 | Inpatient (IN) | payer MEDICARE ==
[2024-04-26] MEDS: SODIUM CHLORIDE 0.9% 1,000 ML IV ONE (23:53)
--- NOTE | 2024-04-26 23:58 | ED ---
General Adult HPI - General Chief complaint: Fall Stated complaint: Fall Time Seen by Provider: 04/26/24 23:38 Source: patient, EMS, RN notes reviewed, old records reviewed Mode of arrival: EMS Limitations: no limitations - History of Present Illness Initial comments: 78 male presenting with near syncopal episode while on the toilet. Patient was brought in by paramedics with fall from the toilet. Either momentarily lost consciousness or was minimally responsive for period of time. Blood pressure was low. The patient does admit to taking his OxyContin and edible marijuana products just prior to this event. He does not believe he hit his head but is not certain. He denies chest pain. Denies abdominal pain. Denies nausea vomiting or diarrhea. No extremity injury. - Related Data Home Medications Medication Instructions Recorded Confirmed DULoxetine HCL [Cymbalta] 60 mg PO BID 01/28/15 12/01/23 lamoTRIgine [LaMICtal] 150 mg PO BID 01/28/15 12/01/23 Albuterol Sulfate [Proair Hfa] 2 puff INHALATION RT-Q4H PRN 03/01/22 12/01/23 Atorvastatin [Lipitor] 20 mg PO DAILY 03/01/22 12/01/23 Pregabalin [Lyrica] 150 mg PO TID 03/01/22 12/01/23 Rivaroxaban [Xarelto] 20 mg PO W/SUPPER 03/01/22 12/01/23 buPROPion HCL [Wellbutrin XL] 300 mg PO DAILY 03/01/22 12/01/23 ALPRAZolam [Xanax] 1 mg PO TID PRN 11/27/23 12/01/23 ARIPiprazole [Abilify] 2 mg PO BID 11/27/23 12/01/23 Levothyroxine Sodium [Synthroid] 50 mcg PO DAILY 11/27/23 12/01/23 Losartan Potassium 100 mg PO DAILY 11/27/23 12/01/23 Metoprolol Succinate (ER) [Toprol 25 mg PO HS 11/27/23 12/01/23 XL] Metoprolol Succinate (ER) [Toprol 50 mg PO DAILY 11/27/23 12/01/23 XL] Oxybutynin Chloride [oxyBUTYnin 10 mg PO BID 11/27/23 12/01/23 chloride ER] Sotalol [Betapace] 120 mg PO BID 11/27/23 12/01/23 oxyCODONE HCL [oxyCODONE HCL (IR)] 15 mg PO Q6H PRN 11/27/23 12/01/23 Allergies Allergy/AdvReac Type Severity Reaction Status Date / Time No Known Allergies Allergy Verified 04/26/24 23:44 Review of Systems ROS Statement: Those systems with pertinent positive or pertinent negative responses have been documented in the HPI. ROS Other: All systems not noted in ROS Statement are negative. Past Medical History Past Medical History: Atrial Fibrillation, COPD, Hypertension, Osteoarthritis (OA), Sleep Apnea/CPAP/BIPAP Additional Past Medical History / Comment(s): hx of prostate cancer with prostatectomy. Neuropathy, Cardiac cath History of Any Multi-Drug Resistant Organisms: None Reported Past Surgical History: Back Surgery, Heart Catheterization, Joint Replacement Additional Past Surgical History / Comment(s): (B) hip replecement, (B)knee replacement, laminectomy x6, prostatectomy, spinal cord decompression Past Anesthesia/Blood Transfusion Reactions: No Reported Reaction Additional Past Anesthesia/Blood Transfusion Reaction / Comment(s): Pt has only received own blood donated prior to surgery. Past Psychological History: Depression Smoking Status: Never smoker Past Alcohol Use History: Occasional Past Drug Use History: None Reported - Past Family History Father Family Medical History: Congestive Heart Failure (CHF), Hypertension, Myocardial Infarction ([place]) Additional Family Medical History / Comment(s): Father of a [place] at age 89 yrs. Mother Family Medical History: Cancer Additional Family Medical History / Comment(s): Mother had multiple myeloma. Sh juan pablo at age 68 yrs. General Exam General appearance: alert, in no apparent distress Head exam: Present: atraumatic, normocephalic Eye exam: Present: normal appearance, PERRL ENT exam: Present: mucous membranes dry Neck exam: Present: normal inspection. Absent: tenderness, meningismus Respiratory exam: Present: normal lung sounds bilaterally. Absent: respiratory distress, wheezes Cardiovascular Exam: Present: normal rhythm, bradycardia GI/Abdominal exam: Present: soft. Absent: distended, tenderness, guarding, rebound Extremities exam: Present: normal inspection, normal capillary refill Neurological exam: Present: alert, oriented X3, CN II-XII intact. Absent: motor sensory deficit Psychiatric exam: Present: normal affect, normal mood Skin exam: Present: warm, dry, intact Course Vital Signs 04/26/24 04/27/24 04/27/24 23:38 00:42 04:00 Temperature 97.6 F 97.3 F L Pulse Rate 55 L 55 L 55 L Respiratory 16 16 16 Rate Blood Pressure 77/49 97/56 101/65 O2 Sat by Pulse 94 L 96 91 L Oximetry 04/27/24 04/27/24 04/27/24 04:45 04:55 05:00 Temperature Pulse Rate 55 L 56 L 55 L Respiratory 15 12 14 Rate Blood Pressure 91/54 92/55 106/44 O2 Sat by Pulse 96 100 98 Oximetry 04/27/24 05:05 Temperature Pulse Rate 57 L Respiratory 15 Rate Blood Pressure 88/62 O2 Sat by Pulse 99 Oximetry Medical Decision Making - Medical Decision Making Was pt. sent in by a medical professional or institution ([facility], CUSTOMER SERVICER, urgent care, hospital, or half-way...) When possible be specific @ -No Did you speak to anyone other than the patient for history (EMS, parent, family, police, friend...)? What history was obtained from this source @ -Yes, paramedics Did you review nursing and triage notes (agree or disagree)? Why? @ -I reviewed and agree with nursing and triage notes Were old charts reviewed (outside hosp., previous admission, EMS record, old EKG, old radiological studies, urgent care reports/EKG's, half-way records)? Report findings @ -No old charts were reviewed Differential Syncope: Valvular disease, hypertrophic cardiomyopathy, pulmonary embolism, tamponade, tachycardia, bradycardia, [place], hypovolemia, hemorrhage, dissection, anemia, intracranial hemorrhage, seizure, hypoglycemia, carbon monoxide poisoning, this is not meant to be an all-inclusive list. EKG interpreted by me (3pts min.). @EKG: Sinus bradycardia with a first-degree AV block, ventricular rate of 52, PA interval 238, QRS duration 125, QTc 484 T wave inversion in V3 no ST segment elevation. X-rays interpreted by me (1pt min.). @ -None done CT interpreted by me (1pt min.). @ -CT brain and C-spine negative for traumatic injury U/S interpreted by me (1pt. min.). @ -None done What testing was considered but not performed or refused? (CT, X-rays, U/S, labs)? Why? @ -None What meds were considered but not given or refused? Why? @ -None Did you discuss the management of the patient with other professionals (professionals i.e. , PA, CUSTOMER SERVICER, lab, RT, psych nurse, social worker clinical, access liaison, teacher, neighborhood conservation officer, protective services case worker)? Give summary @ -EM Was smoking cessation discussed for >3mins.? @ -No Was critical care preformed (if so, how long)? @ -No Were there social determinants of health that impacted care today? How? (Homelessness, low income, unemployed, alcoholism, drug addiction, transportation, low edu. Level, literacy, decrease access to med. care, usp, rehab)? @ -No Was there de-escalation of care discussed even if they declined (Discuss DNR or withdrawal of care, Hospice)? DNR status @ -No What co-morbidities impacted this encounter? (DM, HTN, Smoking, COPD, CAD, Cancer, CVA, ARF, Chemo, Hep., AIDS, mental health diagnosis, sleep apnea, morbid obesity)? @ -None Was patient admitted / discharged? Hospital course, mention meds given and route, prescriptions, significant lab abnormalities, going to OR and other pertinent info. @ -78-year-old male with hypotension, near syncope and fall. Patient is hypotensive which responds to IV fluids in the emergency department. He is a febrile. He has no specific complaints. He does admit to taking his pain medication with marijuana at the same time at the onset of symptoms. He is in sinus rhythm. He has acute kidney injury with elevated BUN and creatinine. Continuous IV fluid has been ordered for suspected prerenal acute kidney injury. Patient will be admitted to his internal medicine doctor with nephrology on consult. Urinalysis pending. Undiagnosed new problem with uncertain prognosis? @ -No Drug Therapy requiring intensive monitoring for toxicity (Heparin, Nitro, Insulin, Cardizem)? @ -No Were any procedures done? @ -No Diagnosis/symptom? @ -Dehydration, near syncope, EVELYN Acute, or Chronic, or Acute on Chronic? @ -[Acute Uncomplicated (without systemic symptoms) or Complicated (systemic symptoms)? @ -Default Side effects of treatment? @ -No Exacerbation, Progression, or Severe Exacerbation? @ -No Poses a threat to life or bodily function? How? (Chest pain, [place], [place], pneumonia, PE, COPD, DKA, ARF, appy, cholecystitis, CVA, Diverticulitis, Homicidal, Suicidal, threat to staff... and all critical care pts) @ -yes, syncope, hypotension, EEVLYN - Lab Data Result diagrams: 04/26/24 23:47 04/26/24 23:47 Lab Results 04/26/24 04/26/24 Range/Units 23:47 23:47 WBC 10.9 H (3.8-10.6) k/uL RBC 4.44 (4.30-5.90) m/uL Hgb 12.1 L (13.0-17.5) gm/dL Hct 40.1 (39.0-53.0) % MCV 90.3 (80.0-100.0) fL MCH 27.1 (25.0-35.0) pg MCHC 30.1 L (31.0-37.0) g/dL RDW 14.0 (11.5-15.5) % Plt Count 329 (150-450) k/uL MPV 8.1 Neutrophils % 81 % Lymphocytes % 11 % Monocytes % 5 % Eosinophils % 2 % Basophils % 1 % Neutrophils # 8.8 H (1.3-7.7) k/uL Lymphocytes # 1.2 (1.0-4.8) k/uL Monocytes # 0.5 (0-1.0) k/uL Eosinophils # 0.2 (0-0.7) k/uL Basophils # 0.1 (0-0.2) k/uL Hypochromasia Slight Sodium 128 L (137-145) mmol/L Potassium 3.6 (3.5-5.1) mmol/L Chloride 96 L (98-107) mmol/L Carbon Dioxide 23 (22-30) mmol/L Anion Gap 9 mmol/L BUN 31 H (9-20) mg/dL Creatinine 3.89 H (0.66-1.25) mg/dL Est GFR (CKD-EPI)AfAm 16 (>60 ml/min/1.73 sqM) Est GFR (CKD-EPI)NonAf 14 (>60 ml/min/1.73 sqM) Glucose 111 H (74-99) mg/dL Calcium 8.3 L (8.4-10.2) mg/dL Magnesium 1.8 (1.6-2.3) mg/dL Total Bilirubin 0.7 (0.2-1.3) mg/dL AST 31 (17-59) U/L ALT 15 (4-49) U/L Alkaline Phosphatase 72 (38-126) U/L Total Protein 5.6 L (6.3-8.2) g/dL Albumin 3.0 L (3.5-5.0) g/dL Serum Alcohol <10 mg/dL Disposition Clinical Impression: Syncope, EVELYN (acute kidney injury) Disposition: ADMITTED IP TO THIS HOSP Condition: Stable Is patient prescribed a controlled substance at d/c from ED?: No Time of Disposition: 01:16
[2024-04-27 00:11] LABS: Basophils # (A) 0.1 k/uL (0-0.2); Basophils % (A) 1 %; Eosinophils # (A) 0.2 k/uL (0-0.7); Eosinophils % (A) 2 %; HCT 40.1 % (39.0-53.0); HGB 12.1 gm/dL (13.0-17.5); Hypochromasia Slight; Lymphocytes # (A) 1.2 k/uL (1.0-4.8); Lymphocytes % (A) 11 %; MCH 27.1 pg (25.0-35.0); MCHC 30.1 g/dL (31.0-37.0); MCV 90.3 fL (80.0-100.0); Mean Platelet Volume 8.1; Monocytes # (A) 0.5 k/uL (0-1.0); Monocytes % (A) 5 %; Neutrophils # (A) 8.8 k/uL (1.3-7.7); Neutrophils % (A) 81 %; Platelet Count 329 k/uL (150-450); RBC 4.44 m/uL (4.30-5.90); WBC 10.9 k/uL (3.8-10.6)
[2024-04-27 00:15] LABS: ALT 15 U/L (4-49); AST 31 U/L (17-59); African American GFR (CKD) 16 (>60 ml/min/1.73 sqM); Alcohol <10 mg/dL; Alkaline Phosphatase 72 U/L (38-126); Anion Gap 9 mmol/L; Blood Urea Nitrogen 31 mg/dL (9-20); Calcium 8.3 mg/dL (8.4-10.2); Carbon Dioxide 23 mmol/L (22-30); Chloride 96 mmol/L (98-107); Glucose 111 mg/dL (74-99); Magnesium 1.8 mg/dL (1.6-2.3); Non-African American GFR(CKD) 14 (>60 ml/min/1.73 sqM); Potassium 3.6 mmol/L (3.5-5.1); Sodium 128 mmol/L (137-145); Total Bilirubin 0.7 mg/dL (0.2-1.3); Total Protein 5.6 g/dL (6.3-8.2)
--- NOTE | 2024-04-27 00:46 | CT ---
EXAM: CT Head Without Intravenous Contrast CLINICAL HISTORY: ITS.REASON CT Reason: fall TECHNIQUE: Axial computed tomography images of the head/brain without intravenous contrast. CTDI is 45.2 mGy and DLP is 1140 mGy-cm. This CT exam was performed using one or more of the following dose reduction techniques: automated exposure control, adjustment of the mA and/or kV according to patient size, and/or use of iterative reconstruction technique. COMPARISON: No relevant prior studies available. FINDINGS: No acute intracranial hemorrhage. No midline shift or mass effect. The territorial colmenares-white matter differentiation is maintained throughout. Age-related cerebral volume loss. Periventricular and subcortical white matter hypoattenuation, consistent with chronic microangiopathy. The visualized orbits appear grossly unremarkable. The calvarium is intact. The visualized paranasal sinuses and mastoid air cells are grossly clear. IMPRESSION: No acute intracranial hemorrhage, midline shift, or mass effect. EXAM: CT Cervical Spine Without Intravenous Contrast CLINICAL HISTORY: ITS.REASON CT Reason: fall TECHNIQUE: Axial computed tomography images of the cervical spine without intravenous contrast. CTDI is 16.7 mGy and DLP is 486.3 mGy-cm. This CT exam was performed using one or more of the following dose reduction techniques: automated exposure control, adjustment of the mA and/or kV according to patient size, and/or use of iterative reconstruction technique. COMPARISON: No relevant prior studies available. FINDINGS: The vertebral body heights are maintained. The craniocervical junction is intact. The atlanto-dens interval is maintained. The dens is intact. There is no spondylolisthesis. Multilevel cervical spondylosis and degenerative disc disease. Straightening of the cervical lordosis. The unenhanced neck soft tissues are grossly unremarkable. The visualized lung apices are grossly clear. IMPRESSION: No acute fracture or subluxation of the cervical spine.
[2024-04-27] MEDS ORDERED: NALOXONE 0.4 MG/ML 1 ML VIAL IV PRN (01:13)
[2024-04-27] MEDS: SODIUM CHLORIDE 0.9% 1,000 ML IV SCH (01:17)
[2024-04-27 06:45] LABS: Appearance,Urine Cloudy (Clear); Bacteria,Urine Many /hpf; Bilirubin,Urine Negative (Negative); Blood,Urine Small (Negative); Color,Urine Yellow; Glucose,Urine (UA) Negative (Negative); Hyaline Casts,Urine 49 /lpf (0-2); Ketones,Urine Negative (Negative); Leukocyte Esterase,Urine Large (Negative); Mucus,Urine Occasional /hpf; Nitrite,Urine Negative (Negative); PH, Urine 5.5 (5.0-8.0); Protein,Urine 1+ (Negative); RBC,Urine 5 /hpf (0-5); Specific Gravity,Urine 1.015 (1.001-1.035); Squamous Epithelial Cell,Urine 1 /hpf (0-4); Urobilinogen,Urine <2.0 mg/dL (<2.0); WBC,Urine >182 /hpf (0-5)
[2024-04-27 06:48] LABS: Amphetamine Screen,Urine Not Detected (NotDetected); Barbiturate Screen,Urine Not Detected (NotDetected); Benzodiazepines Screen,Urine Detected (NotDetected); Cocaine Screen,Urine Not Detected (NotDetected); Methadone Screen, Urine Not Detected (NotDetected); Opiate Screen,Urine Not Detected (NotDetected); Oxycodone Screen, Urine Detected (NotDetected); Phencyclidine Screen,Urine Not Detected (NotDetected); Tricyclic Antidepressant,Urine Not Detected (NotDetected); Urn Cannabinoid Scrn Not Detected (NotDetected)
[2024-04-27 07:03] LABS: Glucose,Whole Blood 92 mg/dL (70-110)
--- NOTE | 2024-04-27 11:44 | P.NPCON ---
History of Present Illness - Reason for Consult acute renal failure - History of Present Illness patient is a 78-year-old male with history of hypertension, A. fib, who is rotated to the hospital after he fell at home while he was on the toilet. It appears that patient did lose consciousness. Blood pressure was low with systolic in the 80s. Patient is maintained on losartan at home which is currently on hold. Patient denies any previous history of kidney diseases. Serum creatinine was 3.89. previous creatinine 1.1 on 02/16/2024. Patient is currently maintained on IV fluids. Rolon catheter has been placed. Review of Systems as per HPI Past Medical History Past Medical History: Atrial Fibrillation, COPD, Hypertension, Osteoarthritis (OA), Sleep Apnea/CPAP/BIPAP Additional Past Medical History / Comment(s): hx of prostate cancer with prostatectomy. Neuropathy, Cardiac cath History of Any Multi-Drug Resistant Organisms: None Reported Past Surgical History: Back Surgery, Heart Catheterization, Joint Replacement Additional Past Surgical History / Comment(s): (B) hip replecement, (B)knee replacement, laminectomy x6, prostatectomy, spinal cord decompression Past Anesthesia/Blood Transfusion Reactions: No Reported Reaction Additional Past Anesthesia/Blood Transfusion Reaction / Comment(s): Pt has only received own blood donated prior to surgery. Past Psychological History: Depression Smoking Status: Never smoker Past Alcohol Use History: Occasional Past Drug Use History: None Reported - Past Family History Father Family Medical History: Congestive Heart Failure (CHF), Hypertension, Myocardial Infarction ([place]) Additional Family Medical History / Comment(s): Father of a [place] at age 89 yrs. Mother Family Medical History: Cancer Additional Family Medical History / Comment(s): Mother had multiple myeloma. She at age 68 yrs. Medications and Allergies Home Medications Medication Instructions Recorded Confirmed Type Albuterol Sulfate [Proair Hfa] 2 puff INHALATION RT-Q4H PRN 03/01/22 04/27/24 History Atorvastatin [Lipitor] 20 mg PO DAILY 03/01/22 04/27/24 History Pregabalin [Lyrica] 150 mg PO TID 03/01/22 04/27/24 History Rivaroxaban [Xarelto] 20 mg PO W/SUPPER 03/01/22 04/27/24 History buPROPion HCL [Wellbutrin XL] 300 mg PO DAILY 03/01/22 04/27/24 History ALPRAZolam [Xanax] 1 mg PO TID 11/27/23 04/27/24 History ARIPiprazole [Abilify] 2 mg PO BID 11/27/23 04/27/24 History Losartan Potassium 100 mg PO DAILY 11/27/23 04/27/24 History Metoprolol Succinate (ER) [Toprol 25 mg PO HS 11/27/23 04/27/24 History XL] Metoprolol Succinate (ER) [Toprol 50 mg PO DAILY 11/27/23 04/27/24 History XL] Sotalol [Betapace] 120 mg PO BID 11/27/23 04/27/24 History oxyCODONE HCL [oxyCODONE HCL (IR)] 15 mg PO Q6H PRN 11/27/23 04/27/24 History Levothyroxine Sodium [Synthroid] 75 mcg PO DAILY 04/27/24 04/27/24 History Allergies Allergy/AdvReac Type Severity Reaction Status Date / Time No Known Allergies Allergy Verified 04/27/24 09:28 Physical Exam Vitals: Vital Signs Temp Pulse Resp BP Pulse Ox 04/27/24 10:31 51 L 12 99/63 100 04/27/24 07:35 53 L 16 95/49 100 04/27/24 07:14 52 L 17 96/70 99 04/27/24 06:27 97.9 F 53 L 15 108/35 99 04/27/24 06:00 52 L 13 113/69 100 04/27/24 05:05 57 L 15 88/62 99 04/27/24 05:00 55 L 14 106/44 98 04/27/24 04:55 56 L 12 92/55 100 04/27/24 04:45 55 L 15 91/54 96 04/27/24 04:00 55 L 16 101/65 91 L 04/27/24 00:42 97.3 F L 55 L 16 97/56 96 04/26/24 23:38 97.6 F 55 L 16 77/49 94 L Intake and Output 04/26/24 04/27/24 04/27/24 22:59 06:59 14:59 Other: Weight 104.326 kg patient is awake, comfortable. He is unable to give detailed history. Examination of the heart S1 and S2 Examination of the lungs bilateral breath sounds are heard Abdomen is soft nontender Examination of lower extremities shows edema 1+ bilaterally. Chronic skin changes noted. 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 Acute kidney injury, ATN. possible obstructive uropathy. Rolon catheter was placed in the ER. It does not appear that large amount of urine was obtained on initial catheter placement.UA shows 1+ protein and small blood and WBCs more than 182. 2. Hypotension currently receiving IV fluids. Antihypertensive medications are on hold. 3. Pyuria rule out UTI 4. History of hypertension with blood pressure currently low 5. History of A. fib with heart rate currently in the 50s. Maintained on sotalol and metoprolol Plan: continue with IV fluids. Continue to hold angiotensin receptor blockers check ultrasound of the kidneys REPEAT labs in a.m. Continue empiric antibiotics. Hold beta blockers as heart rate remains low Thank you for the consultation. We will continue to follow the patient with you during his hospitalization.
--- NOTE | 2024-04-27 13:05 | US ---
EXAMINATION TYPE: US kidneys/renal and bladder DATE OF EXAM: 04/27/2024 COMPARISON: US Renal 11/27/2023 CLINICAL INDICATION: Male, 78 years old with history of evelyn; EVELYN EXAM MEASUREMENTS: Right Kidney: 11.6 x 5.9 x 5.7 cm Left Kidney: 11.6 x 4.9 x 6.2 cm Exam is limited due to patient body habitus and gas. Right Kidney: *Hyperechoic focus seen lower pole: 0.5 x 0.4 x 0.5 cm. Left Kidney: No hydronephrosis or masses seen Bladder: Undistended, catheter in place. Bilateral Jets seen: No IMPRESSION: * No evidence for obstructive uropathy. * Nonobstructing right renal calculus.
[2024-04-27] MEDS: RIVAROXABAN 15 MG TAB PO SCH (17:12)
[2024-04-27] MEDS: PREGABALIN 75 MG CAP PO SCH (17:12)
[2024-04-27 19:17] LABS: African American GFR (CKD) 28 (>60 ml/min/1.73 sqM); Anion Gap 8 mmol/L; Blood Urea Nitrogen 29 mg/dL (9-20); Calcium 7.8 mg/dL (8.4-10.2); Carbon Dioxide 23 mmol/L (22-30); Chloride 97 mmol/L (98-107); Glucose 108 mg/dL (74-99); Non-African American GFR(CKD) 24 (>60 ml/min/1.73 sqM); Sodium 128 mmol/L (137-145)
[2024-04-27 19:18] LABS: Potassium 4.4 mmol/L (3.5-5.1)
[2024-04-27] MEDS: SOTALOL 120 MG TAB PO SCH (20:32)
[2024-04-27] MEDS: METOPROLOL SUCCINATE (ER) 25 MG TAB.ER.24H PO SCH (20:32)
[2024-04-27] MEDS: ARIPiprazole 2 MG TAB PO SCH (20:32)
[2024-04-28] MEDS: LEVOTHYROXINE 75 MCG TAB PO SCH (07:03)
[2024-04-28] MEDS: METOPROLOL SUCCINATE (ER) 50 MG TAB.ER.24H PO SCH (08:15)
[2024-04-28] MEDS: buPROPion XL 300 MG TAB.ER.24H PO SCH (08:15)
--- NOTE | 2024-04-28 12:38 | P.PN ---
Subjective patient is seen for follow-up for acute kidney injury. Renal function has improved with IV hydration. Patient is currently resting. He is arousable. No acute distress. serum creatinine down to 2.5 from 3.89. Objective - Vital Signs Vital signs: Vital Signs Temp 97.9 F 04/27/24 06:27 Pulse 56 L 04/28/24 10:45 Resp 18 04/28/24 10:45 BP 114/84 04/28/24 10:45 Pulse Ox 96 04/28/24 10:45 FiO2 Intake & Output 04/27/24 04/28/24 04/28/24 18:59 06:59 18:59 Output Total 200 Balance -200 Output: Urine 200 Uretheral (Rolon) 200 - Exam patient is awake, comfortable. He is unable to give detailed history. Examination of the heart S1 and S2 Examination of the lungs bilateral breath sounds are heard Abdomen is soft nontender Examination of lower extremities shows edema 1+ bilaterally. Chronic skin changes noted. 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 Acute kidney injury, ATN from hypotension, possible obstructive uropathy. Rolon catheter was placed in the ER. It does not appear that large amount of urine was obtained on initial catheter placement.UA shows 1+ protein and small blood and WBCs more than 182. ultrasound does not show any evidence of obstructive uropathy. 2. Hypotension currently receiving IV fluids. Antihypertensive medications are on hold. 3. Pyuria rule out UTI 4. History of hypertension with blood pressure currently low 5. History of A. fib with heart rate currently in the 50s. Maintained on sotalol and metoprolol Plan: continue with IV fluids. Continue to hold angiotensin receptor blockers Repeat labs in a.m. Continue empiric antibiotics.
[2024-04-29] MEDS: ACETAMINOPHEN TAB 325 MG TAB PO PRN (01:38)
--- NOTE | 2024-04-29 01:52 | HP ---
PROGRESS NOTE DATE OF SERVICE: 04/28/2024 CHIEF COMPLAINT: Syncopal episode with history of heart failure and renal failure. HISTORY: This gentleman is awake, but slightly confused. He is complaining of some bilateral flank pain which he says he has had on and off for some time as well as bilateral groin pain. Since he had been admitted, he has not had any significant arrhythmia, chest pain, palpitations, shortness of breath, or syncope. REVIEW OF SYSTEMS: He denies headaches, change in the vision or hearing, chest pain, cough, hemoptysis, shortness of breath, nausea, abdominal pain, nausea, vomiting and diarrhea, melena, etc. Past medical history, family history and personal and social histories are extensive. He has had longstanding history of heart trouble with cardiomyopathy and congestive heart failure. He follows with Dr. Riggins who is his primer charger in [place]. He also has history of multiple falls with head injuries. 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 He does not smoke. He does not drink alcohol. 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 LABORATORY STUDIES: Urine suggest that the urinary tract infection. Sodium is 128. BUN is 31 with a creatinine of 3.89. Calcium was also slightly low at 8.3. PHYSICAL EXAMINATION: VITAL SIGNS: Blood pressure 96/63 with a pulse of 84 and regular. Respirations were 33. GENERAL: He appeared to be slightly overweight. He is awake, but is somewhat slow to respond to questions and sometimes inappropriate. HEENT: Head, ears, eyes, nose, mouth and throat were normal. CHEST: Clear. CARDIAC: Sounds normal with no murmur being heard. ABDOMEN: Slightly protuberant, soft and nontender without any visceromegaly, masses. EXTREMITIES: Demonstrated ulnar deviation of the fingers on both hands and he had about 2 or 3+ edema in the lower extremities. NEUROLOGICAL: Other than being slightly confused, he is alert. IMPRESSION: 1. Frequent falling due to ataxia. 2. Previous closed-head injuries. 3. 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 4. History of advanced coronary artery disease with cardiomyopathy and chronic congestive heart failure with reduced ejection fraction. 5. Chronic renal failure. 6. Elevated troponin. 7. Urinary tract infection. PLAN: 1. Bedrest. 2. IV fluids. 3. Telemetry. 4. Repeat troponins and order BNP. 5. Echocardiogram. 6. Rehydrate. 7. Consider consult with an [facility]. LINNEA / LYNDSEY: [id number] /
[2024-04-29] MEDS: METOPROLOL SUCCINATE (ER) 25 MG TAB.ER.24H PO SCH (09:22)
[2024-04-29 12:29] LABS: African American GFR (CKD) >90 (>60 ml/min/1.73 sqM); Anion Gap 3 mmol/L; Blood Urea Nitrogen 15 mg/dL (9-20); Calcium 7.9 mg/dL (8.4-10.2); Carbon Dioxide 27 mmol/L (22-30); Chloride 103 mmol/L (98-107); Glucose 115 mg/dL (74-99); Non-African American GFR(CKD) 84 (>60 ml/min/1.73 sqM); Potassium 3.5 mmol/L (3.5-5.1); Sodium 133 mmol/L (137-145)
--- NOTE | 2024-04-29 14:03 | P.PN ---
Subjective patient is seen for follow-up for acute kidney injury. Renal function has improved with IV hydration. Patient is currently resting. He is arousable. No acute distress. serum creatinine down to 0.8 from 3.89. Objective - Vital Signs Vital signs: Vital Signs Temp 98 F 04/29/24 12:48 Pulse 68 04/29/24 12:48 Resp 17 04/29/24 12:48 BP 130/70 04/29/24 12:48 Pulse Ox 96 04/29/24 12:48 FiO2 Intake & Output 04/28/24 04/29/24 04/29/24 18:59 06:59 18:59 Intake Total 540 Output Total 1600 1100 350 Balance -1060 -1100 -350 Weight 104.326 kg Intake: Oral 540 Output: Urine 1600 1100 350 Uretheral (Rolon) 200 Other: Voiding Method Indwelling Catheter Indwelling Catheter - Exam patient is sleeping, comfortable. He is unable to give detailed history. Examination of the heart S1 and S2 Examination of the lungs bilateral breath sounds are heard Abdomen is soft nontender Examination of lower extremities shows edema 1+ bilaterally. Chronic skin changes noted. NUCLEAR SPECTROSCOPIST exam grossly intact - Labs CBC & Chem 7: 04/26/24 23:47 04/29/24 11:49 Labs: Abnormal Lab Results - Last 24 Hours (Table) 04/29/24 Range/Units 11:49 Sodium 133 L (137-145) mmol/L Glucose 115 H (74-99) mg/dL Calcium 7.9 L (8.4-10.2) mg/dL Assessment and Plan Assessment: 1. Acute kidney injury, ATN from hypotension, possible obstructive uropathy. Rolon catheter was placed in the ER. It does not appear that large amount of urine was obtained on initial catheter placement.UA shows 1+ protein and small blood and WBCs more than 182. ultrasound does not show any evidence of obstructive uropathy. 2. Hypotension currently receiving IV fluids. Antihypertensive medications are on hold. 3. Pyuria rule out UTI 4. History of hypertension with blood pressure currently low 5. History of A. fib with heart rate currently in the 50s. Maintained on sotalol and metoprolol Plan: DC IV fluids. Repeat labs in a.m. Continue empiric antibiotics.
[2024-04-29] MEDS: oxyCODONE-APAP 5-325MG 1 EACH TAB PO PRN (17:27)
--- NOTE | 2024-04-29 22:43 | PN ---
PROGRESS NOTE DATE OF SERVICE: 04/29/2024 CHIEF COMPLAINT: Syncope and heart failure. HISTORY OF PRESENT ILLNESS: This gentleman is a little bit better today. He seems to be more alert. He is complaining because he is not getting his opioid. He was explained that this could be a part of his problem at home and we are going to withhold that while he is in the hospital and do further testing. PHYSICAL EXAMINATION: VITAL SIGNS: Normal. CHEST: Clear. CARDIAC: Normal. ABDOMEN: Soft, nontender. IMPRESSION: 1. Syncope. 2. History of cardiomyopathy. 3. Congestive heart failure. 4. Low back pain. 5. RA. 6. Opioid abuse. PLAN: 1. Await results of echocardiogram. 2. Consult Neurology and Cardiology. MMODL / IJN: [id number] /
[2024-04-30] MEDS: ZINC OXIDE PASTE (Z-GUARD) 1 APPLIC TOPICAL PRN (01:31)
--- NOTE | 2024-04-30 09:56 | P.CNNES ---
History of Present Illness Consult date: 04/29/24 Requesting physician: Enoch Galarza Reason for Consult: Syncope History of Present Illness: Patient is a 78-year-old male came to the hospital by ambulance 3 days ago, 04/26/2024 at 11:37 PM for a fall. Patient states that he lives with his brother and his son. He uses a cane and a walker as well, although always keeps his cane with him. He states that he came to the hospital because he lost balance and fell. He did not pass out. He states it has happened before as well but does not remember the last time it happened. Although later he said it may be "a few weeks ago", but later mentioned "it has been a few months ago". Patient denies any stroke symptoms like slurred speech facial droop or focal weakness. As per EMS flowsheet when they arrived to the location, patient had suffered from a fall with altered mental status. Per fire department, who were present at the scene, mentioned that patient has not been answering their questions appropriately. Patient had fallen about 1 hour prior. Per friend on the scene, patient has been fine before the fall however states that after the fall, he has been acting "weird". Patient was noted to be alert and oriented x 1-2 with very repetitive questions. Patient takes oxycodone but did not remember how much he takes. Patient denied any hitting his head or loss of consciousness. Patient does not know how he fell or what happened. Patient's vitals at the scene was blood pressure 64/37, blood sugar 135, pulse rate 56 respiration 18 saturation 100%. Repeat blood pressure 77/40. Vital signs on arrival blood pressure 77/49, pulse rate 55 temperature 97.6. Blood test shows WBC 10.9 hemoglobin 12.1, normal platelets. Sodium 128 pot assium 3.6, BUN 31 creatinine 3.89, which was acute kidney injury. Patient's renal functions have now normalized. UA shows large amount of leukocyte esterase and more than 182 WBCs and few WBC clumps. 1 epithelial cell. Many bacteria. Urine drug screen positive for oxycodone and benzodiazepine. Blood alcohol level negative. Urine cultures not done. Patient had a temperature of 100.0 appraiser today at 1:[address] head showed no acute intracranial process. I personally reviewed CT head, agree with the findings, although on my review, there is significant amount of temporal lobe atrophy with prominence of the sylvian fissures.. CT of the cervical spine showed no acute fractures or subluxations of the cervical spine. EKG shows sinus bradycardia..Abdominal ultrasound showed no evidence for obstructive uropathy. Nonobstructing right renal calculus. Patient has been seen by supervisor self service store, diagnosed with acute kidney injury, ATN from hypotension, possible obstructive uropathy. Patient has been seen by myself on 02/18/2022 Patient denies any tobacco or alcohol use. He has hypertension but no diabetes. Review of Systems All pertinent positive and negative as mentioned in HPI. Patient does have arthritis of the hands. He had multiple hand surgeries. Past Medical History Past Medical History: Atrial Fibrillation, COPD, Hypertension, Osteoarthritis (OA), Sleep Apnea/CPAP/BIPAP Additional Past Medical History / Comment(s): hx of prostate cancer with prostatectomy. Neuropathy, Cardiac cath, does not use c-pap machine anymore. History of Any Multi-Drug Resistant Organisms: None Reported Past Surgical History: Back Surgery, Heart Catheterization, Joint Replacement Additional Past Surgical History / Comment(s): (B) hip replecement, (B)knee replacement, laminectomy x6, prostatectomy, spinal cord decompression Past Anesthesia/Blood Transfusion Reactions: No Reported Reaction Additional Past Anesthesia/Blood Transfusion Reaction / Comment(s): Pt has only received own blood donated prior to surgery. Past Psychological History: Depression Additional Psychological History / Comment(s): He lives with family. He walks with a cane. He drives a car. Smoking Status: Never smoker Past Alcohol Use History: Occasional - Past Family History Father Family Medical History: Congestive Heart Failure (CHF), Hypertension, Myocardial Infarction (MA) Additional Family Medical History / Comment(s): Father of a MA at age 89 yrs. Mother Family Medical History: Cancer Additional Family Medical History / Comment(s): Mother had multiple myeloma. She at age 68 yrs. Medications and Allergies Home Medications Medication Instructions Recorded Confirmed Type Albuterol Sulfate [Proair Hfa] 2 puff INHALATION RT-Q4H PRN 03/01/22 04/27/24 History Atorvastatin [Lipitor] 20 mg PO DAILY 03/01/22 04/27/24 History Pregabalin [Lyrica] 150 mg PO TID 03/01/22 04/27/24 History Rivaroxaban [Xarelto] 20 mg PO W/SUPPER 03/01/22 04/27/24 History buPROPion HCL [Wellbutrin XL] 300 mg PO DAILY 03/01/22 04/27/24 History ALPRAZolam [Xanax] 1 mg PO TID 11/27/23 04/27/24 History ARIPiprazole [Abilify] 2 mg PO BID 11/27/23 04/27/24 History Losartan Potassium 100 mg PO DAILY 11/27/23 04/27/24 History Metoprolol Succinate (ER) [Toprol 25 mg PO HS 11/27/23 04/27/24 History XL] Metoprolol Succinate (ER) [Toprol 50 mg PO DAILY 11/27/23 04/27/24 History XL] Sotalol [Betapace] 120 mg PO BID 11/27/23 04/27/24 History oxyCODONE HCL [oxyCODONE HCL (IR)] 15 mg PO Q6H PRN 11/27/23 04/27/24 History Levothyroxine Sodium [Synthroid] 75 mcg PO DAILY 04/27/24 04/27/24 History Allergies Allergy/AdvReac Type Severity Reaction Status Date / Time No Known Allergies Allergy Verified 04/27/24 09:28 Physical Examination - Vital Signs Vital Signs: Vital Signs Temp Pulse Resp BP BP Pulse Ox 04/29/24 12:48 98 F 68 17 130/70 96 04/29/24 09:15 98.0 F 62 18 119/71 98 04/29/24 08:08 97.4 F L 65 17 116/73 98 04/29/24 07:49 98 F 53 L 17 106/64 96 04/29/24 02:55 98.1 F 04/29/24 01:23 100.0 F H 55 L 18 106/61 94 L 04/28/24 21:10 97.9 F 67 15 123/67 04/28/24 19:12 98.9 F 67 16 125/75 91 L 04/28/24 16:59 99.0 F 63 17 109/70 96 Intake and Output 04/29/24 04/29/24 04/29/24 06:59 14:59 22:59 Output Total 1100 350 Balance -1100 -350 Output: Urine 1100 350 Other: Voiding Method Indwelling Catheter Patient is an elderly male, in no acute distress. Patient is laying in the bed. Appears to have somewhat flat affect. Patient knows it is April 2024 and that he is in [facility] imported on [place] and name of the current president Mr. Oconnell. Speech and language functions cannot be assessed. Attention, concentration is intact and fund of knowledge appears intact however detailed cognitive function testing deferred. On cranial nerve examination, pupils are equal, round and reacting to light, visual rose are full on confrontation with no neglect on double simultaneous s timulation. Extraocular muscles are intact. Face is symmetric, tongue protrudes midline. Palate elevation and sensation is normal. Hearing and shoulder shrug normal. Facial sensations normal. On muscle strength testing, there is no pronator drift. The strength is normal in the arms and legs distally and proximally except briar cutter which is 5-bilaterally. Deep tendon reflexes are 1+ in the upper limbs, trace at the knees and absent ankles, and plantars are downgoing. Sensory to touch is equal with no neglect. No ataxia for [id number] testing bilaterally. Tone and bulk of muscles nor mal. Gait cannot be tested. On general examination, there is no carotid bruit or murmur, S1-S2 audible. Abdomen is soft nontender. Bowel sounds present. No organomegaly. Chest is clear. Patient has moderate peripheral edema. No rash. Patient has history of previous knee surgery. Patient has some arthritic type of deformity of the fingers of the right hand Results - Laboratory Findings CBC and BMP: 04/26/24 23:47 04/29/24 11:49 Abnormal Lab Findings: Abnormal Labs 04/26/24 04/26/24 04/27/24 23:47 23:47 05:46 WBC 10.9 H Hgb 12.1 L MCHC 30.1 L Neutrophils # 8.8 H Sodium 128 L Chloride 96 L BUN 31 H Creatinine 3.89 H Glucose 111 H Calcium 8.3 L Total Protein 5.6 L Albumin 3.0 L Urine Protein 1+ H Urine Blood Small H Ur Leukocyte Esterase Large H Urine WBC >182 H Urine WBC Clumps Few H Urine Bacteria Many H Hyaline Casts 49 H Urine Mucus Occasional H Ur Oxycodone Screen Detected H U Benzodiazepines Scrn Detected H 04/27/24 04/29/24 18:34 11:49 WBC Hgb MCHC Neutrophils # Sodium 128 L 133 L Chloride 97 L BUN 29 H Creatinine 2.50 H Glucose 108 H 115 H Calcium 7.8 L 7.9 L Total Protein Albumin Urine Protein Urine Blood Ur Leukocyte Esterase Urine WBC Urine WBC Clumps Urine Bacteria Hyaline Casts Urine Mucus Ur Oxycodone Screen U Benzodiazepines Scrn Assessment and Plan Assessment: * Status post fall due to losing balance. Patient denies any loss of consciousness. Possible vasovagal. * Acute kidney injury, dehydration, resolved. * Hypotension at the scene and on arrival. * Polypharmacy * Chronic systolic heart failure, with EF 40-45%. * Paroxysmal atrial fibrillation, on Xarelto * Obstructive sleep apnea * History of prostate cancer and previous prostatectomy * History of idiopathic sensory peripheral neuropathy Plan: * Patient had a fall, either accidental, or may be related to mild syncope from hypotension, dehydration and acute kidney injury. * Patient's mentation is back to baseline. * No other workup indicated. * Patient had a syncopal workup performed in March 2022, and was normal as mentioned below: * Carotid Doppler revealed no hemodynamic significant stenosis of the proximal I CA. Antegrade flow in both vertebral arteries. * EEG was abnormal due to background slowing of mild degree. This is suggestive of generalized cerebral dysfunction as can be seen with toxic metabolic encephalopathy or related to medication effect. No epileptiform activity was seen. * 2-D echo from 03/04/2022 revealed ejection fraction 40-45% with global hypokinesia. Mild right ventricular dilation. Poorly visualized intracardiac valves. * Patient has atrial fibrillation, on Xarelto. * Patient's mentation appears normal. * Neurology will sign off. Please reconsult if any other concerns. Thank you for the consult.
--- NOTE | 2024-04-30 15:39 | CA ---
Transthoracic Echo Report Name: Carlos Manuel Bustos Age: 78 Gender: M : 1945 Exam Date: 04/30/2024 10:43 Exam Location: [facility] Ht (in): 73 Wt (lb): 230 Ordering Physician: Enoch Galarza MD Attending/Referring Phys: Geovanni WHITE [employer] Balancing Technician Lavonne Martini RDCS Procedure CPT: Indications: chf Cardiac Hx: Technical Quality: Technically difficult study Contrast 1: Definity Total Dose (mL): 2 Contrast 2: Total Dose (mL): MEASUREMENTS (Male / Female) Normal Values 2D ECHO LV Diastolic Diameter PLAX 5.3 cm 4.2 - 5.9 / 3.9 - 5.3 cm LV Systolic Diameter PLAX 4.0 cm IVS Diastolic Thickness 1.5 cm 0.6 - 1.0 / 0.6 - 0.9 cm LVPW Diastolic Thickness 1.3 cm 0.6 - 1.0 / 0.6 - 0.9 cm LV Relative Wall Thickness 0.5 RV Internal Dim ED PLAX 3.4 cm LA Volume 84.2 cm??? 18 - 58 / 22 - 52 cm??? LA Volume Index 36.0 cm???/m??? 16 - 28 cm???/m??? M-MODE Aortic Root Diameter MM 3.5 cm LA Systolic Diameter MM 5.4 cm LA Ao Ratio MM 1.6 AV Cusp Separation MM 1.8 cm DOPPLER AV Peak Velocity 105.0 cm/s AV Peak Gradient 4.4 mmHg AV Mean Velocity 70.3 cm/s AV Mean Gradient 2.3 mmHg AV Velocity Time Integral 21.7 cm LVOT Peak Velocity 74.5 cm/s LVOT Peak Gradient 2.2 mmHg LVOT Velocity Time Integral 16.1 cm MV Area PHT 3.4 cm??? Mitral E Point Velocity 111.1 cm/s Mitral A Point Velocity 69.4 cm/s Mitral E to A Ratio 1.6 MV Deceleration Time 224.8 ms MV E' Velocity 6.9 cm/s Mitral E to MV E' Ratio 16.0 FINDINGS Left Ventricle Moderately increased septal wall thickness. Left ventricular cavity size normal. Normal left ventricular systolic function with no obvious regional wall motion abnormalities. Left ventricular ejection fraction is estimated at 55 %. Right Ventricle Mild right ventricular dilatation. Right ventricular systolic pressure within normal limits. Right Atrium Normal right atrial size. Left Atrium Moderately increased left atrial volume. Mildly increased left atrial area. Mitral Valve Structurally normal mitral valve. Mitral valve thickened. Mild mitral regurgitation. Aortic Valve No aortic valve stenosis or regurgitation. Tricuspid Valve Structurally normal tricuspid valve. Mild tricuspid regurgitation. Pulmonic Valve Pulmonic valve not well visualized. Pericardium No pericardial effusion. Aorta Normal size aortic root and proximal ascending aorta. CONCLUSIONS Left ventricular ejection fraction 55% Moderately increased left ventricular wall thickness Mild to moderately dilated left atrium Mild mitral regurgitation Mild tricuspid regurgitation Previewed by: Dr. Ritesh Stock DO (Electronically Signed) Final Date: 30 April 2024 15:38
--- NOTE | 2024-04-30 16:24 | P.PN ---
Subjective Progress Note Date: 04/30/24 Patient was seen for a follow-up. Patient remained stable. Offers no complaints. Patient is laying comfortably in the bed. Objective - Vital Signs Vital signs: Vital Signs Temp 98.4 F 04/30/24 13:28 Pulse 63 04/30/24 13:28 Resp 17 04/30/24 13:28 BP 134/76 04/30/24 13:28 Pulse Ox 97 04/30/24 13:28 FiO2 Intake & Output 04/29/24 04/30/24 04/30/24 18:59 06:59 18:59 Intake Total 480 Output Total 1850 700 550 Balance -1370 -700 -550 Intake: Oral 480 Output: Urine 1850 700 550 Other: Voiding Method Indwelling Catheter Indwelling Catheter Indwelling Catheter - Exam Patient is alert and awake. Speech and language functions are normal. He knows it is 04/30/2024 and that he is in [facility] imported on [place]. Muscle strength is normal. Tone is mildly increased bilaterally. No obvious tremors at rest noted. - Labs CBC & Chem 7: 04/26/24 23:47 04/29/24 11:49 Assessment and Plan Assessment: * Status post fall due to losing balance. Patient denies any loss of consciousness. Possible vasovagal. * Acute kidney injury, dehydration, resolved. * Hypotension at the scene and on arrival. Now resolved * Polypharmacy * Chronic systolic heart failure, with EF 40-45%. * Paroxysmal atrial fibrillation, on Xarelto * Obstructive sleep apnea * History of prostate cancer and previous prostatectomy * History of idiopathic sensory peripheral neuropathy Plan: * Patient had a fall, either accidental, or may be related to mild syncope from hypotension, dehydration and acute kidney injury. * Patient's mentation is back to baseline. * No other workup indicated. * Patient had a syncopal workup performed in March 2022, and was normal as mentioned below: * Carotid Doppler revealed no hemodynamic significant stenosis of the proximal ICA. Antegrade flow in both vertebral arteries. * EEG was abnormal due to background slowing of mild degree. This is suggestive of generalized cerebral dysfunction as can be seen with toxic metabolic encephalopathy or related to medication effect. No epileptiform activity was seen. * 2-D echo from 03/04/2022 revealed ejection fraction 40-45% with global hypokinesia. Mild right ventricular dilation. Poorly visualized intracardiac valves. * Patient has atrial fibrillation, on Xarelto. * Patient's mentation appears normal. * May follow-up with neurologist outpatient. * Neurology will sign off. Possible transfer to subacute rehab in the morning.
[2024-04-30] MEDS: RIVAROXABAN 20 MG TAB PO SCH (17:19)
--- NOTE | 2024-04-30 18:19 | P.PN ---
Subjective patient is seen for follow-up for acute kidney injury. Renal function has improved with IV hydration. Patient is currently having an echocardiogram performed. serum creatinine down to 0.8 from 3.89. No significant complaints today. Objective - Vital Signs Vital signs: Vital Signs Temp 98.4 F 04/30/24 13:28 Pulse 63 04/30/24 13:28 Resp 17 04/30/24 13:28 BP 134/76 04/30/24 13:28 Pulse Ox 97 04/30/24 13:28 FiO2 Intake & Output 04/29/24 04/30/24 04/30/24 18:59 06:59 18:59 Intake Total 480 Output Total 1850 700 750 Balance -1370 -700 -750 Intake: Oral 480 Output: Urine 1850 700 750 Other: Voiding Method Indwelling Catheter Indwelling Catheter Indwelling Catheter # Bowel Movements 1 - Exam patient is sleeping, comfortable. He is unable to give detailed history. Examination of the heart S1 and S2 Examination of the lungs bilateral breath sounds are heard Abdomen is soft nontender Examination of lower extremities shows edema trace bilaterally. Chronic skin changes noted. CASE MANAGEMENT COORDINATOR exam grossly intact - Labs CBC & Chem 7: 04/26/24 23:47 04/29/24 11:49 Assessment and Plan Assessment: 1. Acute kidney injury, ATN from hypotension, possible obstructive uropathy. Rolon catheter was placed in the ER. It does not appear that large amount of urine was obtained on initial catheter placement.UA shows 1+ protein and small blood and WBCs more than 182. ultrasound does not show any evidence of obstructive uropathy. 2. Hypotension currently receiving IV fluids. Antihypertensive medications are on hold. 3. Pyuria rule out UTI 4. History of hypertension with blood pressure currently low 5. History of A. fib with heart rate currently in the 50s. Maintained on sotalol and metoprolol Plan: DC IV fluids. Repeat labs in a.m. Continue empiric antibiotics.
--- NOTE | 2024-04-30 18:49 | DS ---
DISCHARGE SUMMARY CHIEF COMPLAINT: Syncope and closed head injury. HISTORY OF PRESENT ILLNESS AND PHYSICAL EXAMINATION: Details of this man's history and physical can be found in the initial workup. LABORATORY STUDIES: While he was in the hospital, he had laboratory studies, details of which can be found in the laboratory section of his chart. COURSE IN THE HOSPITAL: After admission, he was placed on bedrest, started on intravenous fluids with frequent monitoring of his neurologic status, vital signs, and cardiac arrhythmia. He became more awake and alert as his tranquilizers and opioids were reduced. He was seen by Neurology and cleared. He is also to be seen by Cardiology, and an echocardiogram was done. It was felt that he could benefit from a stay in rehab, to which he agreed. Arrangements were being made for him to go to [facility] at this time. FINAL DIAGNOSES: 1. Syncopal episode. 2. Closed head injury. 3. Analgesic and opioid excess with lethargy. 4. Cardiomyopathy. 5. Coronary artery disease. 6. Congestive heart failure. 7. Renal failure. 8. Urinary tract infection. 9. Posttraumatic encephalopathy, secondary to frequent falls. OPERATIONS: None. CONSULTATIONS: Cardiology and Neurology. He is improved. MMODL / IJN: [id number] /
--- NOTE | 2024-04-30 23:38 | P.CRDCN ---
History of Present Illness History of present illness: HISTORY OF PRESENTING ILLNESS Patient is a pleasant 78-year-old male with history of hypertension, hyperlipidemia, obesity, paroxysmal atrial fibrillation/ atrial flutter on Xarelto. Reported normal heart catheterization previously. Follows with Dr. Kraft from [facility]. He additionally has a history of Aflutter ablation however has been doing well for some time on sotalol. Family members help with much of his medical history. Patient presented with a fall. He does have frequent falls and there is report he took his OxyContin and marijuana before this fall. He believes however that he just lost his balance and did not actually lose consciousness. He states he has a number of these episodes usually a few a year. He does not warrant any new vertigo, dizziness or syncope. He states his only a matter of him being off balance. Per EMS report however his blood pressures significantly low in the 60s and 70s and on arrival blood pressure 77/49. He had significant acute kidney injury with creatinine up to 3.8 and was given supportive care with creatinine significantly improved 2.5 and then 0.8. Troponin I and normal. EKG showing normal sinus rhythm, normal axis, QTC was see 484. * Echocardiogram 03/04/2022 revealed EF of 4045% , severe LVH, hypokinesis. 03/06/2022 limited echo EF 4045%, revealed a small pericardial effusion REVIEW OF SYSTEMS At the time of my exam: CONSTITUTIONAL: Denies fever or chills. CARDIOVASCULAR: Denies chest pain +shortness of breath, orthopnea, PND or palpitations. RESPIRATORY: Denies cough. GASTROINTESTINAL: Denies abdominal pain, diarrhea, constipation, nausea or vomiting. MUSCULOSKELETAL: Denies myalgias. NEUROLOGIC: Denies numbness, tingling, headacbe or weakness. ENDOCRINE: Denies fatigue, weight change, polydipsia or polyurina. GENITOURINARY: Denies burning, hematuria or urgency with micturation. HEMATOLOGIC: Denies history of anemia or bleeding. PHYSICAL EXAMINATION Vitals reviewed CONSTITUTIONAL: No apparent distress. HEENT: Head is normocephalic. Pupils are equal, round. Sclerae anicteric. Mucous membranes of the mouth are moist. No JVD. No carotid bruit. CHEST EXAMINATION: Lungs are diminsihed to auscultation. No chest wall tenderness is noted on palpation or with deep breathing. HEART EXAMINATION: Irregular tachycardic rate and rhythm. S1, S2 heard. No murmurs, gallops or rub. ABDOMEN: Soft, nontender. Positive bowel sounds. EXTREMITIES: 2+ peripheral pulses, 1+ bilateral lower extremity edema and no calf tenderness. SKIN: warm, dry NEUROLOGIC EXAMINATION: Patient is awake, alert and oriented x3. ASSESSMENT Typical atrial flutter s/p previous ablation Fall, mechanical related to dizziness per patient however appears related to hyptension with EVELYN noted Chronic heart failure with preserved ejection fraction, borderline 4045% EVELYN Paroxysmal atrial fibrillation Hypertension Dyslipidemia History of major depressive disorder Multiple falls PLAN Patient states he is having mechanical falls however decreased blood pressure with acute kidney injury consistent with ATN and appears more likely related to hypotensive episodes. Echo showing similar EF 40-45% without significant valvul ar disease. If she does have significant chronic kidney disease patient sotalol would likely need to be discontinued however currently creatinine has improved. For now continue with anticoagulation however if he does have frequent falls may consider discontinuation. Continue to hold his home losartan with blood pressures better off of losartan. Consider outpatient monitor or loop if he continues to have episodes however this may be performed as outpatient. Past Medical History Past Medical History: Atrial Fibrillation, COPD, Hypertension, Osteoarthritis (OA), Sleep Apnea/CPAP/BIPAP Additional Past Medical History / Comment(s): hx of prostate cancer with prostatectomy. Neuropathy, Cardiac cath, does not use c-pap machine anymore. History of Any Multi-Drug Resistant Organisms: None Reported Past Surgical History: Back Surgery, Heart Catheterization, Joint Replacement Additional Past Surgical History / Comment(s): (B) hip replecement, (B)knee replacement, laminectomy x6, prostatectomy, spinal cord decompression Past Anesthesia/Blood Transfusion Reactions: No Reported Reaction Additional Past Anesthesia/Blood Transfusion Reaction / Comment(s): Pt has only received own blood donated prior to surgery. Past Psychological History: Depression Additional Psychological History / Comment(s): He lives with family. He walks with a cane. He drives a car. Smoking Status: Never smoker Past Alcohol Use History: Occasional - Past Family History Father Family Medical History: Congestive Heart Failure (CHF), Hypertension, Myocardial Infarction (VA) Additional Family Medical History / Comment(s): Father of a VA at age 89 yrs. Mother Family Medical History: Cancer Additional Family Medical History / Comment(s): Mother had multiple myeloma. She at age 68 yrs. Medications and Allergies Home Medications Medication Instructions Recorded Confirmed Type Albuterol Sulfate [Proair Hfa] 2 puff INHALATION RT-Q4H PRN 03/01/22 04/27/24 History Atorvastatin [Lipitor] 20 mg PO DAILY 03/01/22 04/27/24 History Pregabalin [Lyrica] 150 mg PO TID 03/01/22 04/27/24 History Rivaroxaban [Xarelto] 20 mg PO W/SUPPER 03/01/22 04/27/24 History buPROPion HCL [Wellbutrin XL] 300 mg PO DAILY 03/01/22 04/27/24 History ARIPiprazole [Abilify] 2 mg PO BID 11/27/23 04/27/24 History Losartan Potassium 100 mg PO DAILY 11/27/23 04/27/24 History Metoprolol Succinate (ER) [Toprol 25 mg PO HS 11/27/23 04/27/24 History XL] Metoprolol Succinate (ER) [Toprol 50 mg PO DAILY 11/27/23 04/27/24 History XL] Sotalol [Betapace] 120 mg PO BID 11/27/23 04/27/24 History Levothyroxine Sodium [Synthroid] 75 mcg PO DAILY 04/27/24 04/27/24 History Allergies Allergy/AdvReac Type Severity Reaction Status Date / Time No Known Allergies Allergy Verified 04/27/24 09:28 Physical Exam Vitals: Vital Signs Temp Pulse Resp BP BP Pulse Ox 04/30/24 19:32 97.7 F 61 20 122/67 96 04/30/24 13:28 98.4 F 63 17 134/76 97 04/30/24 07:25 98.0 F 60 18 127/72 97 04/30/24 07:23 98.0 F 58 L 18 127/72 97 04/30/24 01:21 98.4 F 51 L 18 146/72 96 Intake and Output 04/30/24 04/30/24 05/01/24 14:59 22:59 06:59 Output Total 550 200 Balance -550 -200 Output: Urine 550 200 Other: Voiding Method Indwelling Catheter # Bowel Movements 1 Results 04/26/24 23:47 04/29/24 11:49 Current Medications Generic Name Dose Route Start Last Admin Trade Name Freq PRN Reason Stop Dose Admin Acetaminophen 650 mg 04/27/24 01:13 04/29/24 01:38 Acetaminophen Tab 325 Mg Tab PO 650 mg Q6HR PRN Administration Mild Pain or Fever > 100.5 Aripiprazole 2 mg 04/27/24 21:00 04/30/24 21:41 Aripiprazole 2 Mg Tab PO 2 mg BID FORTINO Administration Bupropion HCl 300 mg 04/28/24 09:00 04/30/24 09:25 Bupropion Xl 300 Mg Tab.Er.24h PO 300 mg DAILY FORTINO Administration Levothyroxine Sodium 75 mcg 04/28/24 06:30 04/30/24 06:38 Levothyroxine 75 Mcg Tab PO 75 mcg DAILY@0630 FORTINO Administration Metoprolol Succinate 25 mg 04/27/24 21:00 04/30/24 21:41 Metoprolol Succinate (Er) 25 Mg Tab.Er.24h PO 25 mg HS FORTINO Administration Metoprolol Succinate 25 mg 04/29/24 09:00 04/30/24 09:25 Metoprolol Succinate (Er) 25 Mg Tab.Er.24h PO 25 mg DAILY FORTINO Administration Naloxone HCl 0.2 mg 04/27/24 01:13 Naloxone 0.4 Mg/Ml 1 Ml Vial IV Q2M PRN Opioid Reversal Oxycodone/Acetaminophen 1 each 04/29/24 17:04 04/30/24 14:29 Oxycodone-Apap 5-325mg 1 Each Tab PO 1 each Q8HR PRN Administration Pain Petrolatum 1 applic 04/28/24 16:39 04/30/24 01:31 Zinc Oxide Paste (Z-Guard) 1 Applic TOPICAL 1 applic BID PRN Administration Wound Healing Protocol Pregabalin 150 mg 04/27/24 16:00 04/30/24 21:41 Pregabalin 75 Mg Cap PO 150 mg TID FORTINO Administration Rivaroxaban 20 mg 04/30/24 17:30 04/30/24 17:19 Rivaroxaban 20 Mg Tab PO 20 mg W/SUPPER FORTINO Administration Protocol Sotalol HCl 120 mg 04/27/24 21:00 04/30/24 21:41 Sotalol 120 Mg Tab PO 120 mg BID FORTINO Administration Intake and Output 07/12/24 07/12/24 07/13/24 14:59 22:59 06:59 Output Total 550 200 Balance -550 -200 Output: Urine 550 200 Other: Voiding Method Indwelling Catheter # Bowel Movements 1 04/26/24 23:47 04/29/24 11:49
[2024-05-01 08:06] VITALS: BP 160/82; PULSE 58; RESP 16; TEMP 98.4
--- NOTE | 2024-05-01 08:38 | P.PN ---
Subjective Patient is seen in follow-up for acute kidney injury and hyponatremia. Sodium level and renal function both improved. Oral intake is good. No vomiting or diarrhea. Vital signs are stable. General: No acute distress. HEENT: Head exam is unremarkable. LUNGS: No audible rhonchi or wheezes. HEART: Rate and Rhythm are regular. ABDOMEN: Nontender. EXTREMITITES: No edema. Objective - Vital Signs Vital signs: Vital Signs Temp 98.4 F 05/01/24 07:42 Pulse 58 L 05/01/24 07:42 Resp 16 05/01/24 07:42 BP 160/82 05/01/24 07:42 Pulse Ox 95 05/01/24 07:42 FiO2 Intake & Output 04/30/24 05/01/24 05/01/24 18:59 06:59 18:59 Output Total 750 2000 450 Balance -750 -2000 -450 Output: Urine 750 2000 450 Other: Voiding Method Indwelling Catheter Indwelling Catheter # Bowel Movements 1 - Labs CBC & Chem 7: 04/26/24 23:47 04/29/24 11:49 Assessment and Plan Plan: Assessment: 1. Acute kidney injury secondary to ATN secondary to hypotension. Also concern for urinary retention. No hydronephrosis noted on kidney ultrasound. Renal function improved. Creatinine 0.88 dated April 29, 2024. 2. Questionable urinary retention. Has Rolon catheter. 3. Hypovolemic hyponatremia improved with IV hydration. 4. Benign hypertension. 5. Paroxysmal A-fib. Cardiology following. 6. Chronic systolic CHF with ejection fraction of 40 to 45%. Plan: Encouraged oral intake. Add Flomax. Okay to DC Rolon catheter and monitor serial bladder scans to make sure no urinary retention. Check labs today.
[2024-05-01] MEDS: TAMSULOSIN 0.4 MG CAP.ER.24H PO SCH (09:42)
[2024-05-01 09:45] LABS: African American GFR (CKD) >90 (>60 ml/min/1.73 sqM); Anion Gap 1 mmol/L; Blood Urea Nitrogen 8 mg/dL (9-20); Calcium 7.9 mg/dL (8.4-10.2); Carbon Dioxide 29 mmol/L (22-30); Chloride 103 mmol/L (98-107); Glucose 105 mg/dL (74-99); Magnesium 1.2 mg/dL (1.6-2.3); Non-African American GFR(CKD) >90 (>60 ml/min/1.73 sqM); Potassium 3.8 mmol/L (3.5-5.1); Sodium 133 mmol/L (137-145)
--- NOTE | 2024-05-01 10:38 | P.PN ---
Subjective Progress Note Date: 05/01/24 HISTORY OF PRESENTING ILLNESS Patient is a pleasant 78-year-old male with history of hypertension, hyperli pidemia, obesity, paroxysmal atrial fibrillation/ atrial flutter on Xarelto. Reported normal heart catheterization previously. Follows with Dr. Kraft from [facility]. He additionally has a history of Aflutter ablation however has been doing well for some time on sotalol. Family members help with much of his medical history. Patient presented with a fall. He does have frequent falls and there is report he took his OxyContin and marijuana before this fall. He believes however that he just lost his balance and did not actually lose consciousness. He states he has a number of these episodes usually a few a year. He does not warrant any new vertigo, dizziness or syncope. He states his only a matter of him being off balance. Per EMS report however his blood pressures significantly low in the 60s and 70s and on arrival blood pressure 77/49. He had significant acute kidney injury with creatinine up to 3.8 and was given supportive care with creatinine significantly improved 2.5 and then 0.8. Troponin I and normal. EKG showing normal sinus rhythm, normal axis, QTC was see 484. * Echocardiogram 03/04/2022 revealed EF of 4045% , severe LVH, hypokinesis. 03/06/2022 limited echo EF 4045%, revealed a small pericardial effusion 05/01 Patient is seen today and examined. Patient's renal function has normalized with creatinine of 0.88. Blood pressure 160/82, heart rate 58, pulse ox 95% on room air. Telemetry sinus rhythm. Patient is scheduled for discharge to [facility] today. Patient understands that he will be following up with his primary angio technologist regarding loop recorder. PHYSICAL EXAMINATION Vitals reviewed CONSTITUTIONAL: No apparent distress. HEENT: Head is normocephalic. Pupils are equal, round. Sclerae anicteric. Mucous membranes of the mouth are moist. No JVD. No carotid bruit. CHEST EXAMINATION: Lungs are diminsihed to auscultation. No chest wall tenderne ss is noted on palpation or with deep breathing. HEART EXAMINATION: Irregular tachycardic rate and rhythm. S1, S2 heard. No murmurs, gallops or rub. ABDOMEN: Soft, nontender. Positive bowel sounds. EXTREMITIES: 2+ peripheral pulses, 1+ bilateral lower extremity edema and no calf tenderness. SKIN: warm, dry NEUROLOGIC EXAMINATION: Patient is awake, alert and oriented x3. ASSESSMENT Typical atrial flutter s/p previous ablation Fall, mechanical related to dizziness per patient however appears related to hyptension with EVELYN noted Chronic heart failure with preserved ejection fraction, borderline 4045% EVELYN Paroxysmal atrial fibrillation Hypertension Dyslipidemia History of major depressive disorder Multiple falls PLAN Patient states he is having mechanical falls however decreased blood pressure with acute kidney injury consistent with ATN and appears more likely related to hypotensive episodes. Echo showing similar EF 40-45% without significant valvular disease. If she does have significant chronic kidney disease patient sotalol would likely need to be discontinued however currently creatinine has improved. For now continue with anticoagulation however if he does have frequent falls may consider discontinuation. Continue to hold his home losartan with blood pressures better off of losartan. Consider outpatient monitor or loop if he continues to have episodes however this may be performed as outpatient. Nurse practitioner note has been reviewed, I agree with documented findings and plan of care. Patient was seen and examined. Objective - Vital Signs Vital signs: Vital Signs Temp 98.4 F 05/01/24 07:42 Pulse 58 L 05/01/24 07:42 Resp 16 05/01/24 07:42 BP 160/82 05/01/24 07:42 Pulse Ox 95 05/01/24 07:42 FiO2 Intake & Output 04/30/24 05/01/24 05/01/24 18:59 06:59 18:59 Output Total 750 1999 450 Balance -750 -2000 -450 Output: Urine 750 1999 450 Other: Voiding Method Indwelling Catheter Indwelling Catheter # Bowel Movements 1 - Labs CBC & Chem 7: 04/26/24 23:47 05/01/24 09:11
[2024-05-01] MEDS: MAGNESIUM SULFATE-D5W PMX 1 GM in DEXTROSE/WATER 1 100ML.BAG IVPB SCH (11:51)
[2024-05-02] MEDS ORDERED: MAGNESIUM OXIDE 400 MG TAB PO SCH (09:00)
--- NOTE | 2024-05-04 02:28 | PN ---
PROGRESS NOTE DATE OF SERVICE: 05/01/2024 CHIEF COMPLAINT: Fall with mental status changes. HISTORY OF PRESENT ILLNESS: This gentleman is doing a little bit better. He is requesting rehab and he is going to be going to [facility] [address]. PHYSICAL EXAMINATION: CHEST: Clear. CARDIAC: Unchanged. ABDOMEN: Soft, nontender. NEUROLOGIC: He is much more alert than when he came in. IMPRESSION: 1. Fall. 2. Closed head injury. 3. Delirium. 4. Encephalopathy. 5. Congestive heart failure. 6. Sedative overdose. PLAN: Continue with physical therapy and transfer to [facility] for rehab. MMODL / IJN: [id number] /
--- NOTE | 2024-05-04 17:39 | CDI ---
Documentation Clarification Form Date: 05/04/2024 05:18:13 PM From: Ashwini Humphries Phone: Admit Date: 04/27/2024 01:13:00 AM Patient Name: Carlos Manuel Bustos Visit Number: [id number] Discharge Date: 05/01/2024 02:02:00 PM ATTENTION: The Clinical Documentation Specialists (CDI) and [facility] Coding Staff appreciate your assistance in clarifying documentation. Please respond to the clarification below the line at the bottom and electronically sign. The CDI & [facility] Coding staff will review the response and follow-up if needed. Please note: Queries are made part of the Legal Health Record. If you have any questions, please contact the author of this message via ITS. Doctor/Provider: Enoch Galarza Chronic renal failure is documented per H&P. Additional clarification regarding the stage of CKD is requested. History/Risk Factors: 88yo M, ATN, UTI, DCM, fall, closedhead injury, delirium, tox/met encephalopathy, CDCHF, sedativeOD Clinical Indicators: BUN: 04/26 31 04/27 29 04/29 15 05/01 8 Cr: 04/26 3.89 04/27 2.50 04/29 0.88 05/01 0.66 AfAm: 04/26 16 8 04/29 >90 05/01 >90 NonAf: 04/26 14 04/29 84 05/01 >90 Treatment: Rolon catheter was placedin the ER. Itdoes not appearthat large amount of urine was obtained on initialcatheter placement. UA shows 1+ protein and small blood and WBCs more than 182.Ultrasounddoes not showany evidence of obstructive uropathy. Please clarify the stage of the chronic renal failure, if known: [ ] Acute kidney injury/ATN only [ ] CKD Stage 1 [ ] CKD Stage 2 [ ] Other, please specify [ ] Unable to determine Reference: National [employer] Stage 1 eGFR = 90 and kidney damage for =3 months Stage 2 eGFR 60-89 and kidney damage for =3 months Stage 3a eGFR 45-59 and kidney damage for =3 months Stage 3b eGFR 30-44 and kidney damage for =3 months Stage 4 eGFR 15-29 r and kidney damage for =3 months Stage 5 eGFR <15 and kidney damage for =3 months (Template last revised: October 2023) MTDD
--- NOTE | 2024-05-10 01:49 | MISC ---
MISCELLANOUS REPORT I am not sure he had answered questions. I am not sure what his GFR is looking at this time. I am not sure whether he has acute kidney injury on top of CKD for more than 3 months. MMDRISSL / GIULIANAN: [id number] /
== END 2024-05-01 14:02 | DRG 682 ==
LOC: EC 23:37 → 5NMEDONC 04-27 01:13
PROVIDERS: ADMIT Family Medicine; ATTEND Family Medicine
DX: N17.0 Acute kidney failure with tubular necrosis (principal); G92.8 Other toxic encephalopathy; E87.1 Hypo-osmolality and hyponatremia; I13.0 Hypertensive heart and chronic kidney disease with heart failure and stage 1 through stage 4 chronic kidney disease, or unspecified chronic kidney disease; I42.0 Dilated cardiomyopathy; I48.3 Typical atrial flutter; N39.0 Urinary tract infection, site not specified; F05 Delirium due to known physiological condition; I50.32 Chronic diastolic (congestive) heart failure; J44.9 Chronic obstructive pulmonary disease, unspecified; I48.0 Paroxysmal atrial fibrillation; F11.10 Opioid abuse, uncomplicated; M06.9 Rheumatoid arthritis, unspecified; S09.90XA Unspecified injury of head, initial encounter; F07.81 Postconcussional syndrome; G60.8 Other hereditary and idiopathic neuropathies; I95.9 Hypotension, unspecified; F32.9 Major depressive disorder, single episode, unspecified; E66.9 Obesity, unspecified; Z68.30 Body mass index [BMI] 30.0-30.9, adult; N18.9 Chronic kidney disease, unspecified; T42.71XA Poisoning by unspecified antiepileptic and sedative-hypnotic drugs, accidental (unintentional), initial encounter; Z79.01 Long term (current) use of anticoagulants; E86.1 Hypovolemia; G47.33 Obstructive sleep apnea (adult) (pediatric); N20.0 Calculus of kidney; R33.9 Retention of urine, unspecified; R55 Syncope and collapse; I25.10 Atherosclerotic heart disease of native coronary artery without angina pectoris; R29.6 Repeated falls; E86.0 Dehydration; R27.0 Ataxia, unspecified; E78.5 Hyperlipidemia, unspecified; W18.11XA Fall from or off toilet without subsequent striking against object, initial encounter; Y92.002 Bathroom of unspecified non-institutional (private) residence as the place of occurrence of the external cause; Z96.643 Presence of artificial hip joint, bilateral; Z96.653 Presence of artificial knee joint, bilateral; Z87.820 Personal history of traumatic brain injury; Z91.81 History of falling; Z85.46 Personal history of malignant neoplasm of prostate; Z79.890 Hormone replacement therapy; Z79.899 Other long term (current) drug therapy; Z90.79 Acquired absence of other genital organ(s)
CPT/HCPCS: 36415; 51702; 70450; 72125; 76770; 80048; 80053; 80306; 80320; 81001; 83735; 83880; 84484; 85025; 93005; 93306; 96360; 96361; 99285

== ENCOUNTER 2024-05-19 11:50 | Inpatient (IN) | payer MEDICARE ==
[2024-05-19] MEDS: ATORVASTATIN 80 MG TAB PO STA (11:57)
[2024-05-19] MEDS: SODIUM CHLORIDE 0.9% 1,000 ML IV STA (11:58)
[2024-05-19] MEDS: ATORVASTATIN 40 MG TAB PO STA (11:58)
[2024-05-19] MEDS ORDERED: DILTIAZEM DRIP BOLUS FROM BAG 1 MG SOLN IV ONE (12:00)
[2024-05-19] MEDS ORDERED: DILTIAZEM 125 MG in SODIUM CHLORIDE 0.9% 100 ML IV SCH (12:00)
[2024-05-19] MEDS: HEPARIN SODIUM 1,000 UN/ML (10ML VL) IV ONE ×2 (12:00→12:26)
[2024-05-19] MEDS ORDERED: NALOXONE 0.4 MG/ML 1 ML VIAL IV PRN (12:08)
--- NOTE | 2024-05-19 12:11 | ED ---
General Adult HPI - General Chief complaint: Chest Pain Stated complaint: chest pain Time Seen by Provider: 05/19/24 11:50 Source: patient, EMS, RN notes reviewed, old records reviewed Mode of arrival: EMS Limitations: no limitations - History of Present Illness Initial comments: Patient is a 78-year-old male presents emergency department for chest tightness and shortness of breath. Has been ongoing for 3 days. Has been worse since last night. Does have a history of COPD, atrial fibrillation, hypertension on blood thinners. Patient is diaphoretic. Denies any nausea or vomiting. Denies any estee chest pain, just generalized chest tightness. Patient is wheezy. EMS arrived and found that patient did have findings concerning for STEMI and sent over an EKG which did show some ST segment elevations versus right bundle branch block morphology. They administered aspirin and transfer the patient for further evaluation. No history of cardiac stents. Patient placed in T4 at my discretion for repeat EKG and evaluation for STEMI versus COPD. - Related Data Home Medications Medication Instructions Recorded Confirmed Albuterol Sulfate [Proair Hfa] 2 puff INHALATION RT-Q4H PRN 03/01/22 05/19/24 Atorvastatin [Lipitor] 20 mg PO HS 03/01/22 05/19/24 Pregabalin [Lyrica] 150 mg PO TID 03/01/22 05/19/24 Rivaroxaban [Xarelto] 20 mg PO HS 03/01/22 05/19/24 buPROPion HCL [Wellbutrin XL] 300 mg PO DAILY 03/01/22 05/19/24 ARIPiprazole [Abilify] 2 mg PO BID 11/27/23 05/19/24 Losartan Potassium 100 mg PO DAILY 11/27/23 05/19/24 Metoprolol Succinate (ER) [Toprol 50 mg PO DAILY 11/27/23 05/19/24 XL] Sotalol [Betapace] 120 mg PO BID 11/27/23 05/19/24 Levothyroxine Sodium [Synthroid] 75 mcg PO DAILY 04/27/24 05/19/24 ALPRAZolam [Xanax] 1 mg PO TID 05/19/24 05/19/24 Metoprolol Succinate [Metoprolol 25 mg PO HS 05/19/24 05/19/24 Succinate ER] Mirabegron [Myrbetriq] 25 mg PO DAILY 05/19/24 05/19/24 oxyCODONE HCL [oxyCODONE HCL (IR)] 15 mg PO QID PRN 05/19/24 05/19/24 Allergies Allergy/AdvReac Type Severity Reaction Status Date / Time No Known Allergies Allergy Verified 05/19/24 14:16 Review of Systems ROS Statement: Those systems with pertinent positive or pertinent negative responses have been documented in the HPI. Review of Systems: CONST: Denies fever EYES: Denies blurry vision ENT: Denies nasal congestion C/V: Endorses chest tightness RESP: Endorses shortness of breath GI: Denies abdominal pain : Denies dysuria SKIN: Denies rash. MSK: Denies joint pain. NEURO: Denies headache ROS Other: All systems not noted in ROS Statement are negative. Past Medical History Past Medical History: Atrial Fibrillation, COPD, Hypertension, Osteoarthritis (OA), Sleep Apnea/CPAP/BIPAP Additional Past Medical History / Comment(s): hx of prostate cancer with pr ostatectomy. Neuropathy, Cardiac cath, does not use c-pap machine anymore. History of Any Multi-Drug Resistant Organisms: None Reported Past Surgical History: Back Surgery, Heart Catheterization, Joint Replacement Additional Past Surgical History / Comment(s): (B) hip replecement, (B)knee replacement, laminectomy x6, prostatectomy, spinal cord decompression Past Anesthesia/Blood Transfusion Reactions: No Reported Reaction Additional Past Anesthesia/Blood Transfusion Reaction / Comment(s): Pt has only received own blood donated prior to surgery. Past Psychological History: Depression Smoking Status: Never smoker Past Alcohol Use History: Occasional - Past Family History Father Family Medical History: Congestive Heart Failure (CHF), Hypertension, Myocardial Infarction ([place]) Additional Family Medical History / Comment(s): Father of a [place] at age 89 yrs. Mother Family Medical History: Cancer Additional Family Medical History / Comment(s): Mother had multiple myeloma. She at age 68 yrs. General Exam - General Exam Comments Initial Comments: General: Appears in no acute distress. Diaphoretic. HEAD: Normal with no signs of head trauma. EYES: PERRLA, EOMI, conjunctiva normal, no discharge. ENT: Hearing grossly intact, normal oropharynx. RESPIRATORY: Bilateral end expiratory wheezing. No significant hypoxia. C/V: Regular rate and rhythm. S1 and S2 auscultated, no significant edema, peripheral pulses 2+ and intact throughout ABD: Abd is soft, nontender, nondistended EXT: Normal range of motion, no obvious deformity SKIN: No rashes or lesions observed on exposed skin. NEURO: Alert and oriented x 4. Cranial nerves II-XII intact. No focal sensory or strength deficits. Limitations: no limitations Course Vital Signs 05/19/24 05/19/24 05/19/24 11:51 11:55 12:02 Temperature 100.6 F H Pulse Rate 93 91 Pulse Rate [ 90 Frame Runner ] Respiratory 20 20 Rate Blood Pressure 107/67 105/73 O2 Sat by Pulse 95 93 L Oximetry Medical Decision Making - Medical Decision Making Was pt. sent in by a medical professional or institution (, PA, ELECTROSTATIC PAINT OPERATOR, urgent care, hospital, or half-way...) When possible be specific @ -No Did you speak to anyone other than the patient for history (EMS, parent, family, police, friend...)? What history was obtained from this source @ -Spoke with EMS who called over the phone and transmitted EKG which is somewhat indeterminate. Will repeat EKG stat upon arrival to the ER. Patient has no crushing or estee chest pain but chest tightness with wheezing. Did you review nursing and triage notes (agree or disagree)? Why? @ -I reviewed and agree with nursing and triage notes Were old charts reviewed (outside hosp., previous admission, EMS record, old EKG, old radiological studies, urgent care reports/EKG's, half-way records)? Report findings @ -Old charts reviewed including EKGs from April 27, 2024 which revealed dynamic changes with ST segment elevations in the inferior leads with reciprocal depressions. Differential Diagnosis (chest pain, altered mental status, abdominal pain women, abdominal pain men, vaginal bleeding, weakness, fever, dyspnea, syncope, headache, dizziness, GI bleed, back pain, seizure, CVA, palpatations, mental health, musculoskeletal)? @ -Differential Chest Pain: Stable Angina, Unstable Angina, STEMI, NSTEMI Aortic Dissection, Pneumothorax, Musculoskeletal, Esophageal Spasm GERD, Cholecystitis, Pancreatitis, Zoster, this is not meant to be an all-inclusive list. EKG interpreted by me (3pts min.). @ -As above X-rays interpreted by me (1pt min.). @ -Chest x-ray reveals no obvious acute cardiopulmonary process. CT interpreted by me (1pt min.). @ -None done U/S interpreted by me (1pt. min.). @ -None done What testing was considered but not performed or refused? (CT, X-rays, U/S, lab s)? Why? @ -None What meds were considered but not given or refused? Why? @ -None Did you discuss the management of the patient with other professionals (professionals i.e. DrRobin, PA, ELECTROSTATIC PAINT OPERATOR, lab, RT, psych nurse, social and human services assistant, station cook, teacher, budget officer, cyanide case hardener)? Give summary @ -Discussed with Dr. Cisneros, rn clinical documentation who presented bedside as the patient was made a STEMI activation. We both agree that this is somewhat of an atypical presentation in terms of symptoms but patient does have dynamic changes on EKG. Patient was taken to the [facility] with Dr. Cisneros. I spoke with the admitting team, Dr. Beasley who is covering for Dr. Galarza of [facility]. He accepts the admission. Was smoking cessation discussed for >3mins.? @ -No Was critical care preformed (if so, how long)? @ -Yes, 10 minutes. Were there social determinants of health that impacted care today? How? (Homelessness, low income, unemployed, alcoholism, drug addiction, transportation, low edu. Level, literacy, decrease access to med. care, longterm, rehab)? @ -No Was there de-escalation of care discussed even if they declined (Discuss DNR or withdrawal of care, Hospice)? DNR status @ -No What co-morbidities impacted this encounter? (DM, HTN, Smoking, COPD, CAD, Cancer, CVA, ARF, Chemo, Hep., AIDS, mental health diagnosis, sleep apnea, morbid obesity)? @ -A-fib, COPD, hypertension, hyperlipidemia Was patient admitted / discharged? Hospital course, mention meds given and route, prescriptions, significant lab abnormalities, going to OR and other pertinent info. @ -Based on patient's presentation and physical exam, patient presents emergency department complaining of dyspnea for 3 days, worsening last night with generalized chest tightness. EKG with EMS concerning for STEMI. Repeat EKG also demonstrated findings concerning for STEMI with acute changes that appear dynamic compared with EKG from earlier this month. Due to this, STEMI activation was made. Dr. Cisneros of cardiology present at bedside and was in agreement with the dynamic changes and agreed to take the patient to [facility]. Patient administered aspirin from EMS, bolus of IV heparin, as well as Lipitor. Vital signs are within acceptable limits. Chest x-ray reveals no obvious acute cardiopulmonary process. Patient disposed to the cardiac cath suite. I spoke with the admitting physician, Dr. Beasley who is covering for Dr. Galarza who accepted the admission. Patient's laboratory studies were sent. Unremarkable. For some reason, mult iple labs were canceled by lab. This includes troponin and CMP. Inpatient will have to go over these after cardiac catheterization. Undiagnosed new problem with uncertain prognosis? @ -No Drug Therapy requiring intensive monitoring for toxicity (Heparin, Nitro, Insulin, Cardizem)? @ -No Were any procedures done? @ -No Diagnosis/symptom? @ -STEMI Acute, or Chronic, or Acute on Chronic? @ -Acute Uncomplicated (without systemic symptoms) or Complicated (systemic symptoms)? @ -Complicated Side effects of treatment? @ -No Exacerbation, Progression, or Severe Exacerbation? @ -No Poses a threat to life or bodily function? How? (Chest pain, [place], [place], pneumonia, PE, COPD, DKA, ARF, appy, cholecystitis, CVA, Diverticulitis, Homicidal, Suicidal, threat to staff... and all critical care pts) @ -Yes - Lab Data Result diagrams: 05/19/24 12:00 Lab Results 05/19/24 05/19/24 Range/Units 12:00 12:00 WBC 9.5 (3.8-10.6) k/uL RBC 4.92 (4.30-5.90) m/uL Hgb 13.3 (13.0-17.5) gm/dL Hct 42.6 (39.0-53.0) % MCV 86.6 (80.0-100.0) fL MCH 27.1 (25.0-35.0) pg MCHC 31.3 (31.0-37.0) g/dL RDW 14.4 (11.5-15.5) % Plt Count 369 (150-450) k/uL MPV 8.0 Neutrophils % 77 % Lymphocytes % 11 % Monocytes % 7 % Eosinophils % 2 % Basophils % 1 % Neutrophils # 7.3 (1.3-7.7) k/uL Lymphocytes # 1.0 (1.0-4.8) k/uL Monocytes # 0.6 (0-1.0) k/uL Eosinophils # 0.2 (0-0.7) k/uL Basophils # 0.1 (0-0.2) k/uL Hypochromasia Moderate PT 12.8 H (10.0-12.5) sec INR 1.2 H (<1.2) APTT 34.6 H (22.0-30.0) sec - EKG Data -: EKG Interpreted by Me EKG Comments: 12-lead Electrocardiogram Interpretation Note EKG was reviewed and interpreted by myself. 12-lead ECG performed at 1148 is interpreted by me as revealing normal sinus rhythm with first-degree AV block at a rate of 94 beats per minute. [place] is leftward deviated. ID interval is 241 ms and prolonged, QRS is 150 ms, QTc is 442 ms.. Patient has right bundle br anch block morphology however appears to have acute ST segment elevations in leads II, 3, aVF as well as reciprocal depressions in V2, V3. These seem to be acute, when compared with EKG from earlier April 2024. R wave progression across the precordium was satisfactory. By my interpretation, this EKG is concerning for STEMI with ST segment elevations in leads II, III, aVF with reciprocal depressions. Possible RCA territory.. Critical Care Time Critical Care Time: Yes Total Critical Care Time: 10 Disposition Clinical Impression: STEMI (ST elevation myocardial infarction) Disposition: ADMITTED IP TO THIS HOSP Condition: Serious Time of Disposition: 12:05
[2024-05-19 12:12] LABS: Basophils # (A) 0.1 k/uL (0-0.2); Basophils % (A) 1 %; Eosinophils # (A) 0.2 k/uL (0-0.7); Eosinophils % (A) 2 %; HCT 42.6 % (39.0-53.0); HGB 13.3 gm/dL (13.0-17.5); Hypochromasia Moderate; Lymphocytes % (A) 11 %; MCH 27.1 pg (25.0-35.0); MCHC 31.3 g/dL (31.0-37.0); MCV 86.6 fL (80.0-100.0); Monocytes # (A) 0.6 k/uL (0-1.0); Monocytes % (A) 7 %; Neutrophils # (A) 7.3 k/uL (1.3-7.7); Neutrophils % (A) 77 %; Platelet Count 369 k/uL (150-450); RBC 4.92 m/uL (4.30-5.90); RDW 14.4 % (11.5-15.5); WBC 9.5 k/uL (3.8-10.6)
[2024-05-19] MEDS ORDERED: fentaNYL (PF) 50 MCG/ML 2 ML AMP ONE (12:16)
[2024-05-19] MEDS: fentaNYL (PF) 50 MCG/ML 2 ML AMP IVP ONE (12:18)
[2024-05-19] MEDS: MIDAZOLAM 2 MG/2 ML VIAL IVP ONE (12:18)
[2024-05-19] MEDS: LIDOCAINE 1% INJ 10MG/ML (20 ML MDV) SQ ONE ×2 (12:20→12:21)
[2024-05-19] MEDS ORDERED: VERAPAMIL 2.5 MG/ML 2 ML AMP ONE (12:20)
[2024-05-19 12:21] LABS: INR 1.2 (<1.2); Partial Thromboplastin Time 34.6 sec (22.0-30.0); Prothrombin Time 12.8 sec (10.0-12.5)
[2024-05-19] MEDS: IV FLUID CONTINUATION 1,000 ML IV ONE (12:23)
[2024-05-19] MEDS: PHENYLEPHRINE-0.9% NACL SYG 1,000 MCG/10 ML SYRINGE IVP ONE (12:24)
--- NOTE | 2024-05-19 12:24 | XR ---
EXAMINATION TYPE: XR chest 1V portable DATE OF EXAM: 05/19/2024 12:04 PM CLINICAL INDICATION:Male, 78 years old with history of chest pain; COMPARISON: Chest radiographs from 12/01/2023 TECHNIQUE: XR chest 1V portable Frontal view of the chest. FINDINGS: Lungs/Pleura: Prominent interstitial lung markings are seen scattered throughout the lungs. No eviden ce of focal consolidation, pneumothorax or pleural effusion. Pulmonary vascularity: Unremarkable. Heart/mediastinum: Cardiomediastinal silhouette is unremarkable. Musculoskeletal: No acute osseous pathology. IMPRESSION: Interstitial lung disease changes without acute pulmonary process.
[2024-05-19] MEDS: IOPAMIDOL-370 200ML BTL INJ ONE (12:32)
[2024-05-19] MEDS: NOREPINEPHRINE 4 MG in SODIUM CHLORIDE 0.9% 250 ML IV ONE (12:42)
[2024-05-19] MEDS: HEPARIN SODIUM,PORCINE 10,000 UNIT in SODIUM CHLORIDE 0.9% 1,000 ML IRRIGATION ONE (12:42)
[2024-05-19] MEDS: HEPARIN SODIUM,PORCINE (1 ML) 2,500 UNIT in SODIUM CHLORIDE 0.9% 250 ML IRRIGATION ONE (12:43)
[2024-05-19 12:59] LABS: Glucose,Whole Blood 101 mg/dL (70-110)
[2024-05-19] MEDS: SODIUM CHLORIDE 0.9% 1,000 ML IV SCH (13:00)
--- NOTE | 2024-05-19 13:05 | P.CARDCATH ---
Description of Procedure: PROCEDURES PERFORMED: Left heart catheterization, bilateral coronary angiography, ultrasound guided arterial access, left ventriculogram INDICATION: abnormal EKG concerning for STEMI CONSENT:I have discussed the risks, benefits and alternative therapies for the above-mentioned procedure and for both sedation/analgesia as well as necessary blood product administration, if indicated, as they pertain to this patient. The patient has indicated understanding and acceptance of the risks and procedures discussed. PROCEDURE: After the risks, benefits and alternatives of the above mentioned procedure explained in detail with the patient, informed consent was obtained. Patient was taken to the catheterization lab and prepped and draped in usual fashion. Ultrasound guidance was used to assess for arterial access. 1% lidocaine was used to anesthetize the right radial artery. A 6-Mozambican sheath was placed in the right radial artery using modified Seldinger technique and ultrasound guidance. Left coronary angiography was performed with a 5-[place]ozambican JL 3.5 catheter and right coronary angiography was performed with a 5-[place]ozamb[place] FR5 catheter in various views. A 5-[place]ozambican FR5 catheter was inserted into the left ventricle and pressure measurements were obtained. A 6-Mozambican pigtail catheter was inserted in the left ventricle and left ventriculogram was performed in the SANCHEZ projection with power injection. The right radial sheath was removed and a TR band was placed with hemostasis achieved. The patient tolerated the procedur e well. Patient was transported back to the post catheterization holding area in stable condition. Conscious Sedation: Patient was monitored under the direct supervision of myself for conscious sedation using Versed and fentanyl for a total duration of 22 minutes HEMODYNAMICS: Aorta: 85/65 LV: 89/12, LVEDP 20 SELECTIVE CORONARY ARTERIOGRAPHY: LEFT MAIN: The left main is a large caliber vessel which bifurcates into the LAD and circumflex. There is no significant stenosis. LEFT ANTERIOR DESCENDING CORONARY ARTERY: LAD is a large caliber vessel which wraps around to the apex. There is mild tendon 20% mid LAD stenosis and otherwise normal. LEFT CIRCUMFLEX CORONARY ARTERY: Left circumflex is a moderate caliber vessel without significant stenosis. RIGHT CORONARY ARTERY: The right coronary artery is a large caliber vessel which gives off a PDA and PLV branch and is the dominant vessel. There is mild amount of bridging of the mid RCA however no significant stenosis. LEFT VENTRICULOGRAM: LV EF 30-35% and apical hypokniesis consistent with Takotsubo's cardiomyopathy FINAL IMPRESSION: 1. Relatively normal coronary arteries other than mid LAD 10-20% stenosis 2. Elevated left sided filling pressures 3. Hypotension 4. Cardiomyopathy with EF 30-35% and apical hypokniesis consistent with Takotsubo's cardiomyopathy PLAN: 1. Aggressive risk factor modification per most recent ACC/AHA guidelines. 2. Follow-up in the office in 1-2 weeks.
[2024-05-19] MEDS: NOREPINEPHRINE 4 MG in SODIUM CHLORIDE 0.9% 250 ML IV SCH (13:57)
[2024-05-19 14:31] LABS: ABG Base Excess 0.8 mmol/L; ABG HCO3 26 mmol/L (21-25); ABG Oxygen Saturation 99.2 % (94-97); ABG PCO2 41 mmHg (35-45); ABG PO2 123 mmHg (83-108); ABG TCO2 27 mmol/L (19-24); Allen Test Performed? Yes
[2024-05-19] MEDS: ALPRAZolam 1 MG TAB PO SCH (15:43)
[2024-05-19 15:46] LABS: ALT 16 U/L (4-49); AST 27 U/L (17-59); African American GFR (CKD) 74 (>60 ml/min/1.73 sqM); Albumin 3.5 g/dL (3.5-5.0); Anion Gap 8 mmol/L; Blood Urea Nitrogen 26 mg/dL (9-20); Carbon Dioxide 26 mmol/L (22-30); Chloride 99 mmol/L (98-107); Glucose 105 mg/dL (74-99); Magnesium 1.9 mg/dL (1.6-2.3); Non-African American GFR(CKD) 64 (>60 ml/min/1.73 sqM); Potassium 4.8 mmol/L (3.5-5.1); Sodium 133 mmol/L (137-145); Total Protein 6.3 g/dL (6.3-8.2)
[2024-05-19 15:48] LABS: Alkaline Phosphatase 88 U/L (38-126)
[2024-05-19 15:55] LABS: NT-Pro-B-Type Natriuretic Pept 12900 pg/mL
[2024-05-19] MEDS: PREGABALIN 75 MG CAP PO SCH (16:24)
--- NOTE | 2024-05-19 16:43 | P.CNPUL ---
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 In the ER, patient was noted to be diaphoretic, was also noted to be slightly short of breath, EKG question the possibility of ST elevation myocardial infarction cardiology was notified, patient underwent cardiac catheterization and he was found to have no evidence of significant coronary artery disease, but he was found to have severe LV dysfunction, elevated left-sided filling pressures, also found to have apical hypokinesis consistent with Takotsubo's cardiomyopathy. Patient was placed on norepinephrine for low blood pressure at 0.05 mcg/kg/min, transferred to the ICU, and I was asked to see him in consultation. In spite of norepinephrine, patient was noted to be hypotensive and diaphoretic, went ahead and established a right femoral triple-lumen catheter, and his norepinephrine will be titrated accordingly to maintain mean arterial pressure of 65 or higher chest x-ray on admission showed evidence of mild interstitial edema and pulmonary vascular congestion. BNP level was 12,900. Review of Systems REVIEW OF SYSTEMS: CONSTITUTIONAL: Weakness EYES: Negative. ENT: Negative. CARDIAC: As noted in HPI PULMONARY: As noted in HPI GI: Negative. GENITOURINARY: Negative. MUSCULOSKELETAL: Negative. SKIN: Negative. NEUROPSYCH: Negative. ENDOCRINE: Negative. HEMATOLOGIC: Negative. Past Medical History Past Medical History: Atrial Fibrillation, COPD, Hypertension, Osteoarthritis (OA), Sleep Apnea/CPAP/BIPAP Additional Past Medical History / Comment(s): hx of prostate cancer with prostatectomy. Neuropathy, Cardiac cath, does not use c-pap machine anymore. History of Any Multi-Drug Resistant Organisms: None Reported Past Surgical History: Back Surgery, Heart Catheterization, Joint Replacement Additional Past Surgical History / Comment(s): (B) hip replecement, (B)knee replacement, laminectomy x6, prostatectomy, spinal cord decompression Past Anesthesia/Blood Transfusion Reactions: No Reported Reaction Additional Past Anesthesia/Blood Transfusion Reaction / Comment(s): Pt has only received own blood donated prior to surgery. Past Psychological History: Depression Smoking Status: Never smoker Past Alcohol Use History: Occasional - Past Family History Father Family Medical History: Congestive Heart Failure (CHF), Hypertension, Myocardial Infarction ([place]) Additional Family Medical History / Comment(s): Father of a [place] at age 89 yrs. Mother Family Medical History: Cancer Additional Family Medical History / Comment(s): Mother had multiple myeloma. She at age 68 yrs. Medications and Allergies Home Medications Medication Instructions Recorded Confirmed Type Albuterol Sulfate [Proair Hfa] 2 puff INHALATION RT-Q4H PRN 03/01/22 05/19/24 History Atorvastatin [Lipitor] 20 mg PO HS 03/01/22 05/19/24 History Pregabalin [Lyrica] 150 mg PO TID 03/01/22 05/19/24 History Rivaroxaban [Xarelto] 20 mg PO HS 03/01/22 05/19/24 History buPROPion HCL [Wellbutrin XL] 300 mg PO DAILY 03/01/22 05/19/24 History ARIPiprazole [Abilify] 2 mg PO BID 11/27/23 05/19/24 History Losartan Potassium 100 mg PO DAILY 11/27/23 05/19/24 History Metoprolol Succinate (ER) [Toprol 50 mg PO DAILY 11/27/23 05/19/24 History XL] Sotalol [Betapace] 120 mg PO BID 11/27/23 05/19/24 History Levothyroxine Sodium [Synthroid] 75 mcg PO DAILY 04/27/24 05/19/24 History ALPRAZolam [Xanax] 1 mg PO TID 05/19/24 05/19/24 History Metoprolol Succinate [Metoprolol 25 mg PO HS 05/19/24 05/19/24 History Succinate ER] Mirabegron [Myrbetriq] 25 mg PO DAILY 05/19/24 05/19/24 History oxyCODONE HCL [oxyCODONE HCL (IR)] 15 mg PO QID PRN 05/19/24 05/19/24 History Allergies Allergy/AdvReac Type Severity Reaction Status Date / Time No Known Allergies Allergy Verified 05/19/24 14:16 Physical Exam Vitals: Vital Signs Temp Pulse Pulse Resp BP Pulse Ox 05/19/24 12:17 93 L 05/19/24 12:02 91 20 105/73 93 L 05/19/24 11:55 90 05/19/24 11:51 100.6 F H 93 20 107/67 95 Intake and Output 05/19/24 05/19/24 05/19/24 06:59 14:59 22:59 Intake Total 64.759 9.294 Output Total 60 Balance 64.759 -50.706 Intake: IV 55 Intake, IV Titration 9.759 9.294 Amount Norepinephrine 4 mg In 9.759 9.294 Sodium Chloride 0.9% 250 ml @ 0.03 MCG/KG/MIN 13. 941 mls/hr IV .[id number] FORTINO Rx#:[id number] Output: Urine 60 Other: Weight 121.971 kg General: Reveals 78-year-old white male pleasant in no distress Skin: Patient is cold and clammy, seems diaphoretic. Eye: Pupils are equal, round and reactive to light, extra-ocular movements are intact; there is normal conjunctiva bilaterally. Ears, nose, mouth and throat: There are moist mucous membranes and no oral lesions. Neck: The neck is supple, there is no tenderness or JVD. Cardiovascular: There is a regular rate and rhythm. No murmur, rub or gallop is appreciated. Respiratory: Diminished breath sound bilaterally no crackles rhonchi or wheezes Gastrointestinal: Soft, non-distended, non-tender abdomen without masses or organomegaly noted. There is no rebound or guarding present. Bowel sounds are unremarkable. Back: There is no tenderness to palpation in the midline. There is no obvious deformity. Musculoskeletal: Normal ROM, no tenderness, There is no pedal edema. There is no calf tenderness or swelling. No cords were appreciated. Neurological: CN II-XII intact, Cranial nerves III through XII are intact. There are no obvious motor or sensory deficits. Coordination appears grossly intact. Speech is normal. Psychiatric: Cooperative, appropriate mood & affect, normal judgment. Results - Laboratory Findings CBC and BMP: 05/19/24 12:00 05/19/24 14:45 ABG ABG pH 7.40 (7.35-7.45) 05/19/24 14:24 ABG pCO2 41 mmHg (35-45) 05/19/24 14:24 ABG pO2 123 mmHg (83-108) H 05/19/24 14:24 ABG O2 Saturation 99.2 % (94-97) H 05/19/24 14:24 PT/INR, D-dimer PT 12.8 sec (10.0-12.5) H 05/19/24 12:00 INR 1.2 (<1.2) H 05/19/24 12:00 D-Dimer 0.63 mg/L FEU (<0.60) H 05/19/24 14:45 Abnormal lab findings: Abnormal Labs 05/19/24 05/19/24 05/19/24 12:00 14:24 14:45 PT 12.8 H INR 1.2 H APTT 34.6 H D-Dimer ABG pO2 123 H ABG HCO3 26 H ABG Total CO2 27 H ABG O2 Saturation 99.2 H Sodium 133 L BUN 26 H Glucose 105 H Troponin I 05/19/24 05/19/24 14:45 14:45 PT INR APTT D-Dimer 0.63 H ABG pO2 ABG HCO3 ABG Total CO2 ABG O2 Saturation Sodium BUN Glucose Troponin I 1.300 H* - Diagnostic Findings Chest x-ray: image reviewed (As noted in HPI) Assessment and Plan Assessment: Impression: Nonischemic cardiomyopathy/Takotsubo syndrome Hypotension secondary to above Mild congestive heart failure secondary to severe LV dysfunction History of chronic atrial fibrillation Relatively normal coronary arteries other than the mid LAD stenosis 10 to 20% noted on cardiac catheterization Benign essential hypertension History of hypothyroidism Recommendation: Continue present supportive care measures Continue norepinephrine Continue to monitor in the ICU Gentle diuresis if needed once his blood pressure normalizes. Resume home meds including Xarelto and will resume his blood pressure medications once his blood pressure normalizes. Diet and DVT prophylaxis Will continue to follow Time with Patient: Greater than 30
[2024-05-19 17:02] LABS: Appearance,Urine Cloudy (Clear); Bilirubin,Urine Negative (Negative); Blood,Urine Negative (Negative); Color,Urine Yellow; Glucose,Urine (UA) Negative (Negative); Ketones,Urine Negative (Negative); Leukocyte Esterase,Urine Trace (Negative); Mucus,Urine Occasional /hpf; Nitrite,Urine Negative (Negative); Protein,Urine 1+ (Negative); RBC,Urine 2 /hpf (0-5); Urobilinogen,Urine <2.0 mg/dL (<2.0); WBC,Urine 9 /hpf (0-5)
[2024-05-19 17:10] LABS: Specific Gravity,Urine >1.050 (1.001-1.035)
[2024-05-19] MEDS: RIVAROXABAN 15 MG TAB PO SCH (17:51)
[2024-05-19] MEDS: guaiFENesin-DM 100-10MG/5ML 10 ML CUP PO PRN (17:51)
--- NOTE | 2024-05-19 19:07 | P.CRDCN ---
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 Yesterday symptoms were on and off. This morning his symptoms got intense therefore he called EMS. EMS performed an EKG which showed sinus rhythm with right bundle branch block with concerns of a stimulations in inferior lead. For this he was brought to the [facility] ER. Cardiology was paged for STEMI evaluation. Patient was immediately evaluated at bedside. Patient reported substernal chest heaviness along with significant diaphoresis and sense of impending doom. 2 weeks ago patient was admitted to [facility] and was treated for A-fib RVR. His echocardiogram showed an EF of 40 to 45% with severe concentric LVH. It appears that patient does have prior history of cardiomyopathy with unknown EF of 40 to 45%. Admission ECG in the ER showed sinus rhythm with right bundle branch block with some concerns of ST elevations in inferior lead. When compared to prior ECG from 2 weeks ago and from November 2023, it appears that patient's QRS was not prolonged on those ECGs and he only had incomplete right bundle branch block. Due to this, patient was emergently taken to the cardiac catheterization lab. Verbal consent was obtained and procedural steps were explained to the patient. Risk factors were explained. Patient agreed to proceed. Cardiac analyzation showed mild nonobstructive CAD, it did show evidence of stress cardiomyopathy on LV gram. REVIEW OF SYSTEMS 14 point review of system is negative except what is mentioned above in HPI. PHYSICAL EXAMINATION Vital signs reviewed. Head: Normocephalic. Eyes: Sclerae nonicteric. Neck: Brisk carotid upstroke, no jugular venous distention. Lungs: Clear to auscultation. Heart: Regular rate and rhythm, S1-S2, no S3, no murmur or rub. Abdomen: Soft nontender, positive bowel sounds. Extremities: No edema, intact distal pulses. Neuro: Alert, oritented, no focal deficits. Detailed neuro exam was not performed. ASSESSMENT Inferior STEMI --> cardiac cath showed mild nonobstructive CAD, LV gram showed stress cardiomyopathy Chest pressure with diaphoresis and sense of impending doom Stress cardiomyopathy Prior history of cardiomyopathy with a EF of 40 to 45% Moderate to severe concentric LVH Paroxysmal atrial fibrillation Prior cardiac testing Echo April 30, 2024: EF 50-55%, moderate to severe concentric LVH, moderately dilated left atrium, mild MR PLAN Patient underwent heart catheterization which showed no significant obstructive coronary artery disease. On LV gram there was concerns of possible apical hyp okinesia with EF of 35% suggestive of stress cardiomyopathy. Obtain a limited echocardiogram to assess for LVEF Continue aspirin 81 mg, Lipitor 20 mg, Resume Xarelto 15 mg daily. His renal function is appropriate and GFR is more than 50, increase the dose to 20 mg daily It appears that patient is on sotalol for rhythm control. Due to patient's cardiomyopathy, will not recommend sotalol to be initiated. May consider starting patient on amiodarone. Monitor in ICU overnight, consider transferring out of ICU if hemodynamically stable tomorrow Wagner Cisneros MD, FACC, RPVI Thank you for allowing [facility] to participate in this patient's care. Feel free to reach out in case of any followup questions. Past Medical History Past Medical History: Atrial Fibrillation, COPD, Hypertension, Osteoarthritis (OA), Sleep Apnea/CPAP/BIPAP Additional Past Medical History / Comment(s): hx of prostate cancer with prostatectomy. Neuropathy, Cardiac cath, does not use c-pap machine anymore. History of Any Multi-Drug Resistant Organisms: None Reported Past Surgical History: Back Surgery, Heart Catheterization, Joint Replacement Additional Past Surgical History / Comment(s): (B) hip replecement, (B)knee replacement, laminectomy x6, prostatectomy, spinal cord decompression Past Anesthesia/Blood Transfusion Reactions: No Reported Reaction Additional Past Anesthesia/Blood Transfusion Reaction / Comment(s): Pt has only received own blood donated prior to surgery. Past Psychological History: Depression Smoking Status: Never smoker Past Alcohol Use History: Occasional - Past Family History Father Family Medical History: Congestive Heart Failure (CHF), Hypertension, Myocardial Infarction (CA) Additional Family Medical History / Comment(s): Father of a CA at age 89 yrs. Mother Family Medical History: Cancer Additional Family Medical History / Comment(s): Mother had multiple myeloma. She at age 68 yrs. Medications and Allergies Home Medications Medication Instructions Recorded Confirmed Type Albuterol Sulfate [Proair Hfa] 2 puff INHALATION RT-Q4H PRN 03/01/22 05/19/24 History Atorvastatin [Lipitor] 20 mg PO HS 03/01/22 05/19/24 History Pregabalin [Lyrica] 150 mg PO TID 03/01/22 05/19/24 History Rivaroxaban [Xarelto] 20 mg PO HS 03/01/22 05/19/24 History buPROPion HCL [Wellbutrin XL] 300 mg PO DAILY 03/01/22 05/19/24 History ARIPiprazole [Abilify] 2 mg PO BID 11/27/23 05/19/24 History Losartan Potassium 100 mg PO DAILY 11/27/23 05/19/24 History Metoprolol Succinate (ER) [Toprol 50 mg PO DAILY 11/27/23 05/19/24 History XL] Sotalol [Betapace] 120 mg PO BID 11/27/23 05/19/24 History Levothyroxine Sodium [Synthroid] 75 mcg PO DAILY 04/27/24 05/19/24 History ALPRAZolam [Xanax] 1 mg PO TID PRN 05/19/24 05/19/24 History Metoprolol Succinate [Metoprolol 25 mg PO HS 05/19/24 05/19/24 History Succinate ER] Mirabegron [Myrbetriq] 25 mg PO DAILY 05/19/24 05/19/24 History oxyCODONE HCL [oxyCODONE HCL (IR)] 15 mg PO QID PRN 05/19/24 05/19/24 History Allergies Allergy/AdvReac Type Severity Reaction Status Date / Time No Known Allergies Allergy Verified 05/19/24 14:16 Physical Exam Vitals: Vital Signs Temp Pulse Pulse Resp BP Pulse Ox 05/19/24 18:00 67 23 103/64 99 05/19/24 17:45 66 105/67 98 05/19/24 17:30 67 13 114/80 98 05/19/24 17:15 73 16 122/74 94 L 05/19/24 17:00 73 22 114/65 96 05/19/24 16:45 68 111/66 95 05/19/24 16:30 68 105/68 98 05/19/24 16:15 67 103/65 100 05/19/24 16:00 98.7 F 67 17 99/68 98 05/19/24 15:45 65 86/69 05/19/24 15:30 69 14 92/55 99 05/19/24 15:15 65 24 89/57 05/19/24 15:00 65 22 84/52 99 05/19/24 14:45 64 71/56 05/19/24 14:30 65 21 82/61 05/19/24 14:15 65 13 83/56 05/19/24 14:00 66 10 L 87/52 100 05/19/24 13:45 67 22 92/62 05/19/24 13:30 68 23 92/62 05/19/24 13:15 70 22 85/49 05/19/24 13:00 98.4 F 74 11 L 78/53 100 05/19/24 12:17 93 L 05/19/24 12:02 91 20 105/73 93 L 05/19/24 11:55 90 05/19/24 11:51 100.6 F H 93 20 107/67 95 Intake and Output 05/19/24 05/19/24 05/19/24 06:59 14:59 22:59 Intake Total 64.759 622.563 Output Total 240 Balance 64.759 382.563 Intake: IV 55 300 Sodium Chloride 0.9% 1, 300 000 ml @ 75 mls/hr IV . [id number] [facility] Rx#:[id number] Intake, IV Titration 9.759 82.563 Amount Norepinephrine 4 mg In 9.759 82.563 Sodium Chloride 0.9% 250 ml @ 0.03 MCG/KG/MIN 13. 941 mls/hr IV .[id number] [facility] Rx#:[id number] Oral 240 Output: Urine 240 Other: Voiding Method Urinal Urinal Weight 121.971 kg Results 05/19/24 12:00 05/19/24 14:45 Cardiac Enzymes 05/19/24 05/19/24 Range/Units 14:45 14:45 AST 27 (17-59) U/L Troponin I 1.300 H* (0.000-0.034) ng/mL Coagulation 05/19/24 Range/Units 12:00 PT 12.8 H (10.0-12.5) sec APTT 34.6 H (22.0-30.0) sec CBC 05/19/24 Range/Units 12:00 WBC 9.5 (3.8-10.6) k/uL RBC 4.92 (4.30-5.90) m/uL Hgb 13.3 (13.0-17.5) gm/dL Hct 42.6 (39.0-53.0) % Plt Count 369 (150-450) k/uL Comprehensive Metabolic Panel 05/19/24 Range/Units 14:45 Sodium 133 L (137-145) mmol/L Potassium 4.8 (3.5-5.1) mmol/L Chloride 99 (98-107) mmol/L Carbon Dioxide 26 (22-30) mmol/L BUN 26 H (9-20) mg/dL Creatinine 1.11 (0.66-1.25) mg/dL Glucose 105 H (74-99) mg/dL Calcium 9.0 (8.4-10.2) mg/dL AST 27 (17-59) U/L ALT 16 (4-49) U/L Alkaline Phosphatase 88 (38-126) U/L Total Protein 6.3 (6.3-8.2) g/dL Albumin 3.5 (3.5-5.0) g/dL Current Medications Generic Name Dose Route Start Last Admin Trade Name Freq PRN Reason Stop Dose Admin Albuterol Sulfate 2 puff 05/19/24 14:31 Albuterol Hfa Inhaler INHALATION RT-Q4H PRN Shortness Of Breath Alprazolam 1 mg 05/19/24 15:42 Alprazolam 1 Mg Tab PO TID PRN Anxiety Aripiprazole 2 mg 05/19/24 21:00 Aripiprazole 2 Mg Tab PO BID [facility] Aspirin 81 mg 05/20/24 09:00 Aspirin 81 Mg PO DAILY [facility] Atorvastatin Calcium 20 mg 05/20/24 09:00 Atorvastatin 20 Mg Tab PO DAILY [facility] Bupropion HCl 300 mg 05/20/24 09:00 Bupropion Xl 300 Mg Tab.Er.24h PO DAILY [facility] Guaifenesin/Dextromethorphan 10 ml 05/19/24 17:20 05/19/24 17:51 Guaifenesin-Dm 100-10mg/5ml 10 Ml Cup PO 10 ml Q6HR PRN Administration Cough Norepinephrine Bitartrate 4 mg 254 mls @ 13.941 mls/hr 05/19/24 13:45 18:53 / Sodium Chloride IV 0.01 mcg/kg/min .[id number] [facility] 4.647 mls/hr Titration Protocol 0.03 MCG/KG/MIN Sodium Chloride 1,000 mls @ 75 mls/hr 05/19/24 02:00 05/19/24 13:00 Saline 0.9% IV 75 mls/hr .[id number] [facility] Administration Ceftriaxone Sodium 2 gm/ 50 mls @ 100 mls/hr 05/19/24 18:45 Sodium Chloride IVPB Q24HR [facility] Protocol Levothyroxine Sodium 75 mcg 05/20/24 06:30 Levothyroxine 75 Mcg Tab PO DAILY@0630 [facility] Naloxone HCl 0.2 mg 05/19/24 12:08 Naloxone 0.4 Mg/Ml 1 Ml Vial IV Q2M PRN Opioid Reversal Mirabegron [ 25 mg 05/20/24 09:00 Myrbetriq] 25 Mg Tab PO .Er.24h DAILY [facility] Oxycodone HCl 15 mg 05/19/24 14:31 Oxycodone Hcl 5 Mg Tab PO QID PRN Pain Pantoprazole Sodium 40 mg 05/20/24 07:30 Pantoprazole 40 Mg Tablet PO AC-BRKFST [facility] Pregabalin 150 mg 05/19/24 16:00 05/19/24 16:24 Pregabalin 75 Mg Cap PO 150 mg TID [facility] Administration Rivaroxaban 15 mg 05/19/24 17:30 05/19/24 17:51 Rivaroxaban 15 Mg Tab PO 15 mg W/SUPPER [facility] Administration Protocol Intake and Output 05/19/24 05/19/24 05/19/24 06:59 14:59 22:59 Intake Total 64.759 622.563 Output Total 240 Balance 64.759 382.563 Intake: IV 55 300 Sodium Chloride 0.9% 1, 300 000 ml @ 75 mls/hr IV . [id number] [facility] Rx#:[id number] Intake, IV Titration 9.759 82.563 Amount Norepinephrine 4 mg In 9.759 82.563 Sodium Chloride 0.9% 250 ml @ 0.03 MCG/KG/MIN 13. 941 mls/hr IV .[id number] [facility] Rx#:[id number] Oral 240 Output: Urine 240 Other: Voiding Method Urinal Urinal Weight 121.971 kg Patient Weight 05/20/24 06:59 Weight 121.971 kg 05/19/24 12:00 05/19/24 14:45
[2024-05-19] MEDS: ARIPiprazole 2 MG TAB PO SCH (21:24)
--- NOTE | 2024-05-19 21:57 | P.CONS ---
History of Present Illness - Reason for Consult Consult date: 05/19/24 Sepsis?? Requesting physician: Tremayne Beasley - Chief Complaint Chest tightness cough and sputum x 3 days - History of Present Illness Patient is a 78-year-old male with a past medical history significant for hypertension COPD atrial fibrillation sleep apnea osteoarthritis prostate cancer status post prostatectomy patient presenting to the ER for evaluation of chest tightness and shortness of breath and this patient symptom has been going on for about 3 days worse since the night before presentation to the hospital patient also have a cough moderate intensity bring up some yellowish-green sputum but no hemoptysis has been complaining of mostly chest tightness but no chest pain and wheezing no nausea no vomiting no choking with food no abdominal pain or any diarrhea with the symptoms the patient has been evaluated apparently patient was noticed to have some EKG changes when done by the EMS and the patient has been brought to the hospital patient was evaluated by cardiology and the patient did have a cardiac cath noticed to have normal coronary arteries elevated left-sided filling pressure cardiomyopathy with EF 35% consistent to Takotsubo cardiomyopathy patient did have a low-grade 100.6 on presentation to hospital patient with no significant tachycardia hypotension or hypoxemia no need for supplemental oxygen patient did have a white count of 9.5 creatinine is 1.11 electrolytes normal liver enzymes normal troponin is elevated urine has been positive influenza RSV COVID testing was negative patient did have a chest x-ray interstitial lung disease changes without acute pulmonary process infectious he was consulted concerning for possible sepsis antibiotic therapy Review of Systems Positive point and negatives has been mentioned in the HPI, complete review of systems was performed and all other systems are negative Past Medical History Past Medical History: Atrial Fibrillation, COPD, Hypertension, Osteoarthritis (OA), Sleep Apnea/CPAP/BIPAP Additional Past Medical History / Comment(s): hx of prostate cancer with prostatectomy. Neuropathy, Cardiac cath, does not use c-pap machine anymore. History of Any Multi-Drug Resistant Organisms: None Reported Past Surgical History: Back Surgery, Heart Catheterization, Joint Replacement Additional Past Surgical History / Comment(s): (B) hip replecement, (B)knee replacement, laminectomy x6, prostatectomy, spinal cord decompression Past Anesthesia/Blood Transfusion Reactions: No Reported Reaction Additional Past Anesthesia/Blood Transfusion Reaction / Comm: Pt has only received own blood donated prior to surgery. Past Psychological History: Depression Smoking Status: Never smoker Past Alcohol Use History: Occasional - Past Family History Father Family Medical History: Congestive Heart Failure (CHF), Hypertension, Myocardial Infarction (DC) Additional Family Medical History / Comment(s): Father of a DC at age 89 yrs. Mother Family Medical History: Cancer Additional Family Medical History / Comment(s): Mother had multiple myeloma. She at age 68 yrs. Medications and Allergies Home Medications Medication Instructions Recorded Confirmed Type Albuterol Sulfate [Proair Hfa] 2 puff INHALATION RT-Q4H PRN 03/01/22 05/19/24 History Atorvastatin [Lipitor] 20 mg PO HS 03/01/22 05/19/24 History Pregabalin [Lyrica] 150 mg PO TID 03/01/22 05/19/24 History Rivaroxaban [Xarelto] 20 mg PO HS 03/01/22 05/19/24 History buPROPion HCL [Wellbutrin XL] 300 mg PO DAILY 03/01/22 05/19/24 History ARIPiprazole [Abilify] 2 mg PO BID 11/27/23 05/19/24 History Losartan Potassium 100 mg PO DAILY 11/27/23 05/19/24 History Metoprolol Succinate (ER) [Toprol 50 mg PO DAILY 11/27/23 05/19/24 History XL] Sotalol [Betapace] 120 mg PO BID 11/27/23 05/19/24 History Levothyroxine Sodium [Synthroid] 75 mcg PO DAILY 04/27/24 05/19/24 History ALPRAZolam [Xanax] 1 mg PO TID PRN 05/19/24 05/19/24 History Metoprolol Succinate [Metoprolol 25 mg PO HS 05/19/24 05/19/24 History Succinate ER] Mirabegron [Myrbetriq] 25 mg PO DAILY 05/19/24 05/19/24 History oxyCODONE HCL [oxyCODONE HCL (IR)] 15 mg PO QID PRN 05/19/24 05/19/24 History Allergies Allergy/AdvReac Type Severity Reaction Status Date / Time No Known Allergies Allergy Verified 05/19/24 14:16 Physical Exam Vitals: Vital Signs Temp Pulse Pulse Resp BP Pulse Ox 05/19/24 12:17 93 L 05/19/24 12:02 91 20 105/73 93 L 05/19/24 11:55 90 05/19/24 11:51 100.6 F H 93 20 107/67 95 Intake and Output 05/19/24 05/19/24 05/19/24 06:59 14:59 22:59 Intake Total 64.759 61.884 Output Total 60 Balance 64.759 1.884 Intake: IV 55 Intake, IV Titration 9.759 61.884 Amount Norepinephrine 4 mg In 9.759 61.884 Sodium Chloride 0.9% 250 ml @ 0.03 MCG/KG/MIN 13. 941 mls/hr IV .[id number] [facility] Rx#:[id number] Output: Urine 60 Other: Weight 121.971 kg GENERAL DESCRIPTION: Elderly male lying in bed, no distress. No tachypnea or accessory muscle of respiration use. HEENT: Shows Pallor , no scleral icterus. Oral mucous membrane is dry. No pharyngeal erythema or thrush NECK: Trachea central, no thyromegaly. LUNGS: Unlabored breathing. Decreased breath sound at the base HEART: S1, S2, regular rate and rhythm. No loud murmur ABDOMEN: Soft, no tenderness , guarding or rigidity, no organomegaly EXTREMITIES: No edema of feet. SKIN: No rash, no masses palpable. NEUROLOGICAL: The patient is awake, alert, oriented x3, mood and affect normal. Results CBC & Chem 7: 05/19/24 12:00 05/19/24 14:45 Labs: Abnormal Lab Results - Last 24 Hours (Table) 05/19/24 05/19/24 05/19/24 Range/Units 12:00 14:24 14:45 PT 12.8 H (10.0-12.5) sec INR 1.2 H (<1.2) APTT 34.6 H (22.0-30.0) sec D-Dimer (<0.60) mg/L FEU ABG pO2 123 H (83-108) mmHg ABG HCO3 26 H (21-25) mmol/L ABG Total CO2 27 H (19-24) mmol/L ABG O2 Saturation 99.2 H (94-97) % Sodium 133 L (137-145) mmol/L BUN 26 H (9-20) mg/dL Glucose 105 H (74-99) mg/dL Troponin I (0.000-0.034) ng/mL Ur Specific [place] (1.001-1.035) Urine Protein (Negative) Ur Leukocyte Esterase (Negative) Urine WBC (0-5) /hpf Urine Mucus (None) /hpf 05/19/24 05/19/24 05/19/24 Range/Units 14:45 14:45 15:39 PT (10.0-12.5) sec INR (<1.2) APTT (22.0-30.0) sec D-Dimer 0.63 H (<0.60) mg/L FEU ABG pO2 (83-108) mmHg ABG HCO3 (21-25) mmol/L ABG Total CO2 (19-24) mmol/L ABG O2 Saturation (94-97) % Sodium (137-145) mmol/L BUN (9-20) mg/dL Glucose (74-99) mg/dL Troponin I 1.300 H* (0.000-0.034) ng/mL Ur Specific [place] >1.050 H (1.001-1.035) Urine Protein 1+ H (Negative) Ur Leukocyte Esterase Trace H (Negative) Urine WBC 9 H (0-5) /hpf Urine Mucus Occasional H (None) /hpf Assessment and Plan (1) Pneumonia Current Visit: Yes Status: Acute Code(s): J18.9 - PNEUMONIA, UNSPECIFIED ORGANISM SNOMED Code(s): 428890397 (2) Fever Current Visit: No Status: Acute Code(s): R50.9 - FEVER, UNSPECIFIED SNOMED Code(s): 559337380 Plan: 1patient presented to hospital with chest tightness and this patient who also have a cough and bring up some purulent sputum did have a low-grade fever underlying pneumonia not entirely excluded in this patient has been diagnosed with Takotsubo cardiomyopathy by cardiology s/p cardiac cath with elevated normal coronaries. 2we will check a CRP and procalcitonin try to obtain sputum for Gram stain and culture 3-empirically add Rocephin 2 g daily while waiting for the workup to be completed We will follow on clinical condition and cultures to further adjust medication if needed Thank you for this consultation we will follow the patient along with you Dictation was produced using [employer] dictation software. please excuse any grammatical, word or spelling errors. Time with Patient: Greater than 30
--- NOTE | 2024-05-19 22:51 | OP ---
OPERATIVE REPORT DATE OF SERVICE : PROCEDURE PERFORMED: Placement of a right femoral triple-lumen catheter. PREOPERATIVE DIAGNOSES: Hypotension and cardiomyopathy/nonischemic cardiomyopathy. POSTOPERATIVE DIAGNOSES: Hypotension and cardiomyopathy/nonischemic cardiomyopathy. ANESTHESIA USED: 2 mL of 1% lidocaine. DESCRIPTION OF PROCEDURE: The patient was placed in the supine position, the right groin was prepared in a sterile fashion and drapes were applied. The area of the right groin was locally anesthetized with lidocaine. Then, the right femoral vein was easily cannulated, and a guidewire was placed. The area around the guidewire was dilated. Then, a triple-lumen catheter was inserted over the guidewire, and the guidewire was removed. Good flow was noted in the 3 different ports of the triple-lumen catheter, line was secured using 3.0 silk sutures, no complications. MMODL / IJN: [id number] /
--- NOTE | 2024-05-20 00:12 | HP ---
HISTORY AND PHYSICAL CHIEF COMPLAINT: Chest pain and shortness of breath. HISTORY OF PRESENT ILLNESS: This is a 78-year-old gentleman with a past medical history of atrial ablation, COPD, being followed by Dr. Galarza in the outpatient setting, complaining of anterior part of chest pain and shortness of breath. The patient had EKG changes with right bundle- branch block. The patient had an emergent cardiac catheterization by Dr. Stock, which showed relatively normal coronary arteries with 10% to 20% LAD stenosis, elevated left-sided filling pressures, hypotension, as well as cardiomyopathy with ejection fraction of 30% to 35% and apical hypokinesis consistent with Takotsubo cardiomyopathy. There is no history of any fever, rigors, or chills. CT angio, chest pain noted. PAST MEDICAL HISTORY: Reviewed, atrial fibrillation, COPD. Rest of the history and rest of the chart is also noted. HOME MEDICATIONS: Xarelto, dose and rest of medications reviewed, not confirmed yet. ALLERGIES: None. FAMILY HISTORY: History of CHF, hypertension. SOCIAL HISTORY: No history of smoke. Occasional alcohol intake. REVIEW OF SYSTEMS: Fourteen-point review is negative except as mentioned earlier. PHYSICAL EXAMINATION: VITAL SIGNS: Pulse 91, blood pressure 105/63, respirations 20. HEENT: Conjunctivae normal. NECK: No JVD. CARDIOVASCULAR: S1, S2. RESPIRATIONS: Breath sounds diminished at the bases. A few scattered rhonchi. ABDOMEN: Soft, nontender. LEGS: No edema. NERVOUS SYSTEM: Nonfocal. The patient is diaphoretic at this time. LABORATORY DATA: Reviewed. ASSESSMENT: 1. Chest pain, shortness of breath, possible Takotsubo cardiomyopathy with ejection fraction 30% to 35%. 2. Status post cardiac catheterization showing only mild LAD 10% to 20% stenosis. 3. Rule out acute pulmonary embolism. 4. Chronic obstructive pulmonary disease. 5. Atrial fibrillation. 6. Hypertension. 7. History of degenerative joint disease. 8. Multiple complex medical issues. RECOMMENDATIONS AND DISCUSSION: This is a 78-year-old gentleman, who presented with multiple complex medical issues, we will monitor the patient closely. Continue the current management and continue symptomatic treatment. I recommend a D-dimer, 2D echo, and as well as CT angio of the chest. I would also recommend a set of blood cultures. Resume home medications once they are confirmed. The patient will be monitored in ICU. Overall prognosis extremely guarded because of multiple complex medical issues and further recommendations to follow. MMODL / IJN: [id number] /
[2024-05-20] MEDS: LEVOTHYROXINE 75 MCG TAB PO SCH (05:45)
[2024-05-20] MEDS: PANTOPRAZOLE 40 MG TABLET PO SCH (05:45)
[2024-05-20] MEDS: ALBUTEROL HFA INHALER INHALATION PRN (05:50)
[2024-05-20 07:09] LABS: Basophils % (A) 1 %; Eosinophils % (A) 1 %; HCT 34.9 % (39.0-53.0); HGB 10.9 gm/dL (13.0-17.5); Hypochromasia Moderate; Lymphocytes # (A) 0.8 k/uL (1.0-4.8); Lymphocytes % (A) 14 %; MCH 27.2 pg (25.0-35.0); MCHC 31.3 g/dL (31.0-37.0); MCV 87.1 fL (80.0-100.0); Mean Platelet Volume 7.6; Monocytes # (A) 0.5 k/uL (0-1.0); Monocytes % (A) 9 %; Neutrophils # (A) 4.5 k/uL (1.3-7.7); Neutrophils % (A) 74 %; Platelet Count 231 k/uL (150-450); RBC 4.01 m/uL (4.30-5.90); RDW 14.5 % (11.5-15.5)
[2024-05-20 07:28] LABS: African American GFR (CKD) >90 (>60 ml/min/1.73 sqM); Anion Gap 1 mmol/L; Blood Urea Nitrogen 23 mg/dL (9-20); Calcium 8.4 mg/dL (8.4-10.2); Carbon Dioxide 30 mmol/L (22-30); Chloride 102 mmol/L (98-107); Glucose 113 mg/dL (74-99); Non-African American GFR(CKD) 81 (>60 ml/min/1.73 sqM); Potassium 4.2 mmol/L (3.5-5.1); Sodium 133 mmol/L (137-145)
[2024-05-20] MEDS: ASPIRIN 81 MG PO SCH (08:23)
[2024-05-20] MEDS: ATORVASTATIN 20 MG TAB PO SCH (08:23)
[2024-05-20] MEDS: buPROPion XL 300 MG TAB.ER.24H PO SCH (08:23)
--- NOTE | 2024-05-20 08:26 | XR ---
EXAMINATION TYPE: XR chest 1V portable DATE OF EXAM: 05/20/2024 8:20 AM CLINICAL INDICATION:Male, 78 years old with history of chf; [facility] COMPARISON: None TECHNIQUE: XR chest 1V portable Frontal view of the chest. FINDINGS: Lungs/Pleura: There is no evidence of pleural effusion, focal consolidation, or pneumothorax. Pulmonary vascularity: Unremarkable. Heart/mediastinum: Cardiomediastinal silhouette is unremarkable. Musculoskeletal: No acute osseous pathology. IMPRESSION: No acute cardiopulmonary disease/process.
[2024-05-20] MEDS ORDERED: DEXAMETHASONE SOD PHOSPHATE 4 MG/ML 1 ML VIAL IVP STA (09:31)
[2024-05-20] MEDS: Mirabegron [Myrbetriq] 25 MG Tab.Er.24h PO SCH (11:11)
[2024-05-20] MEDS: FUROSEMIDE 10 MG/ML 2 ML VIAL IV ONE (11:17)
[2024-05-20] MEDS: DEXAMETHASONE SOD PHOSPHATE 4 MG/ML 1 ML VIAL IVP STA (11:18)
[2024-05-20] MEDS: IPRATROPIUM-ALBUTEROL 3 ML NEB INHALATION SCH (11:31)
[2024-05-20] MEDS: SYMBICORT 160-4.5 MCG INHALER INHALATION SCH (11:31)
[2024-05-20] MEDS: SODIUM CHLORIDE 0.9% 500 ML 500 ML IV SCH (11:31)
--- NOTE | 2024-05-20 13:19 | P.PN ---
Subjective This is a pleasant 78 years old male with past medical history of multiple medical problems as below Patient presents on the May 19 for worsening shortness of breath of 3 days duration and had low-grade temperature of 100.6. 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 Pro- Calcitonin elevated 1.37. Patient was started on ceftriaxone. Patient required some small dose of Levophed but currently he is off pressors Patient also on Xarelto and some normal saline for his history of paroxysmal A- fib Continued on aspirin and Protonix Urinalysis negative for infection No more fever today Patient still feels some congestion he has good oxygen saturation. Currently remains also on ceftriaxone Review of systems CONSTITUTIONAL: No fever, no malaise, no fatigue. GASTROINTESTINAL: No diarrhea, no nausea, no vomiting, no abdominal pain. Normoa ctive bowel sounds. NEUROLOGICAL: No headaches, no weakness, no numbness. HEMATOLOGICAL: Denies any bleeding or petechiae. GENITOURINARY: Denies any burning micturition, frequency, or urgency. MUSCULOSKELETAL/RHEUMATOLOGICAL: Denies any joint pain, swelling, or any muscle pain. ENDOCRINE: Denies any polyuria or polydipsia. Active Medications Generic Name Dose Route Start Last Admin Trade Name Freq PRN Reason Stop Dose Admin Albuterol/Ipratropium 3 ml 05/20/24 10:00 05/20/24 11:31 Ipratropium-Albuterol 3 Ml Neb INHALATION 3 ml RT-QID [facility] Administration Alprazolam 1 mg 05/19/24 15:42 Alprazolam 1 Mg Tab PO TID PRN Anxiety Aripiprazole 2 mg 05/19/24 21:00 05/20/24 08:23 Aripiprazole 2 Mg Tab PO 2 mg BID [facility] Administration Aspirin 81 mg 05/20/24 09:00 05/20/24 08:23 Aspirin 81 Mg PO 81 mg DAILY [facility] Administration Atorvastatin Calcium 20 mg 05/20/24 09:00 05/20/24 08:23 Atorvastatin 20 Mg Tab PO 20 mg DAILY [facility] Administration Budesonide/Formoterol Fumarate 2 puff 05/20/24 10:00 08/01/24 11:31 Symbicort 160-4.5 Mcg Inhaler INHALATION 2 puff RT-BID [facility] Administration Bupropion HCl 300 mg 05/20/24 09:00 05/20/24 08:23 Bupropion Xl 300 Mg Tab.Er.24h PO 300 mg DAILY [facility] Administration Guaifenesin/Dextromethorphan 10 ml 05/19/24 17:20 05/20/24 06:37 Guaifenesin-Dm 100-10mg/5ml 10 Ml Cup PO 10 ml Q6HR PRN Administration Cough Ceftriaxone Sodium 2 gm/ 50 mls @ 100 mls/hr 05/19/24 18:45 05/20/24 08:45 Sodium Chloride IVPB 100 mls/hr Q24HR [facility] Administration Protocol Sodium Chloride 500 mls @ 20 mls/hr 05/20/24 09:00 05/20/24 11:31 Saline 0.9% IV 20 mls/hr .Q24H [facility] Administration Levothyroxine Sodium 75 mcg 05/20/24 06:30 05/20/24 05:45 Levothyroxine 75 Mcg Tab PO 75 mcg DAILY@0630 [facility] Administration Naloxone HCl 0.2 mg 05/19/24 12:08 Naloxone 0.4 Mg/Ml 1 Ml Vial IV Q2M PRN Opioid Reversal Mirabegron [ 25 mg 05/20/24 09:00 05/20/24 11:11 Myrbetriq] 25 Mg Tab PO Not Given .Er.24h DAILY [facility] Oxycodone HCl 15 mg 05/19/24 14:31 Oxycodone Hcl 5 Mg Tab PO QID PRN Pain Pantoprazole Sodium 40 mg 05/20/24 07:30 05/20/24 05:45 Pantoprazole 40 Mg Tablet PO 40 mg AC-[id number] [facility] Administration Pregabalin 150 mg 05/19/24 16:00 05/20/24 08:23 Pregabalin 75 Mg Cap PO 150 mg TID [facility] Administration Rivaroxaban 15 mg 05/19/24 17:30 05/19/24 17:51 Rivaroxaban 15 Mg Tab PO 15 mg W/SUPPER [facility] Administration Protocol Objective - Vital Signs Vital signs: Vital Signs Temp 99.3 F 05/20/24 08:00 Pulse 76 05/20/24 08:00 Resp 27 H 05/20/24 08:00 BP 113/66 05/20/24 08:00 Pulse Ox 92 L 05/20/24 08:00 FiO2 Intake & Output 05/19/24 05/20/24 05/20/24 18:59 06:59 18:59 Intake Total 891.842 1655.378 75 Output Total 240 725 225 Balance 447.322 500.378 -150 Weight 121.971 kg 116.1 kg Intake: IV 355 975 75 Sodium Chloride 0.9% 1, 300 975 75 000 ml @ 75 mls/hr IV . [id number] [facility] Rx#:[id number] Intake, IV Titration 92.322 10.378 Amount Norepinephrine 4 mg In 92.322 10.378 Sodium Chloride 0.9% 250 ml @ 0.03 MCG/KG/MIN 13. 941 mls/hr IV .[id number] [facility] Rx#:[id number] Oral 240 240 Output: Urine 240 725 225 Other: Voiding Method Urinal Urinal Urinal - Labs CBC & Chem 7: 05/20/24 06:40 05/20/24 06:40 Labs: Abnormal Lab Results - Last 24 Hours (Table) 05/19/24 05/19/24 05/19/24 Range/Units 12:00 14:24 14:45 RBC (4.30-5.90) m/uL Hgb (13.0-17.5) gm/dL Hct (39.0-53.0) % Lymphocytes # (1.0-4.8) k/uL PT 12.8 H (10.0-12.5) sec INR 1.2 H (<1.2) APTT 34.6 H (22.0-30.0) sec D-Dimer (<0.60) mg/L FEU ABG pO2 123 H (83-108) mmHg ABG HCO3 26 H (21-25) mmol/L ABG Total CO2 27 H (19-24) mmol/L ABG O2 Saturation 99.2 H (94-97) % Sodium 133 L (137-145) mmol/L BUN 26 H (9-20) mg/dL Glucose 105 H (74-99) mg/dL Troponin I (0.000-0.034) ng/mL C-Reactive Protein (<1.0) mg/dL Procalcitonin (0.02-0.50) ng/mL Ur Specific [place] (1.001-1.035) Urine Protein (Negative) Ur Leukocyte Esterase (Negative) Urine WBC (0-5) /hpf Urine Mucus (None) /hpf 05/19/24 05/19/24 05/19/24 Range/Units 14:45 14:45 14:45 RBC (4.30-5.90) m/uL Hgb (13.0-17.5) gm/dL Hct (39.0-53.0) % Lymphocytes # (1.0-4.8) k/uL PT (10.0-12.5) sec INR (<1.2) APTT (22.0-30.0) sec D-Dimer 0.63 H (<0.60) mg/L FEU ABG pO2 (83-108) mmHg ABG HCO3 (21-25) mmol/L ABG Total CO2 (19-24) mmol/L ABG O2 Saturation (94-97) % Sodium (137-145) mmol/L BUN (9-20) mg/dL Glucose (74-99) mg/dL Troponin I 1.300 H* (0.000-0.034) ng/mL C-Reactive Protein 3.3 H (<1.0) mg/dL Procalcitonin (0.02-0.50) ng/mL Ur Specific [place] (1.001-1.035) Urine Protein (Negative) Ur Leukocyte Esterase (Negative) Urine WBC (0-5) /hpf Urine Mucus (None) /hpf 05/19/24 05/19/24 05/20/24 Range/Units 14:45 15:39 06:40 RBC 4.01 L (4.30-5.90) m/uL Hgb 10.9 L (13.0-17.5) gm/dL Hct 34.9 L (39.0-53.0) % Lymphocytes # 0.8 L (1.0-4.8) k/uL PT (10.0-12.5) sec INR (<1.2) APTT (22.0-30.0) sec D-Dimer (<0.60) mg/L FEU ABG pO2 (83-108) mmHg ABG HCO3 (21-25) mmol/L ABG Total CO2 (19-24) mmol/L ABG O2 Saturation (94-97) % Sodium (137-145) mmol/L BUN (9-20) mg/dL Glucose (74-99) mg/dL Troponin I (0.000-0.034) ng/mL C-Reactive Protein (<1.0) mg/dL Procalcitonin 1.37 H (0.02-0.50) ng/mL Ur Specific [place] >1.050 H (1.001-1.035) Urine Protein 1+ H (Negative) Ur Leukocyte Esterase Trace H (Negative) Urine WBC 9 H (0-5) /hpf Urine Mucus Occasional H (None) /hpf 05/20/24 Range/Units 06:40 RBC (4.30-5.90) m/uL Hgb (13.0-17.5) gm/dL Hct (39.0-53.0) % Lymphocytes # (1.0-4.8) k/uL PT (10.0-12.5) sec INR (<1.2) APTT (22.0-30.0) sec D-Dimer (<0.60) mg/L FEU ABG pO2 (83-108) mmHg ABG HCO3 (21-25) mmol/L ABG Total CO2 (19-24) mmol/L ABG O2 Saturation (94-97) % Sodium 133 L (137-145) mmol/L BUN 23 H (9-20) mg/dL Glucose 113 H (74-99) mg/dL Troponin I (0.000-0.034) ng/mL C-Reactive Protein (<1.0) mg/dL Procalcitonin (0.02-0.50) ng/mL Ur Specific [place] (1.001-1.035) Urine Protein (Negative) Ur Leukocyte Esterase (Negative) Urine WBC (0-5) /hpf Urine Mucus (None) /hpf Assessment and Plan Assessment: Inferior STEMI status post cardiac cath showing mild nonobstructive CAD Stress cardiomyopathy with low ejection fraction 40 to 45% Hypertension currently improved thought secondary to cardiac disease and infection Possible community-acquired pneumonia Paroxysmal atrial fibrillation Obesity with BMI of 33.8 Plan: Continue with gentle hydration Continue with aspirin and Xarelto Patient does not require pressors today Continue with ceftriaxone and follow-up culture results ID and infectious disease and pulmonary/critical care team following closely Labs and medication were reviewed.. Continue same treatment. Continue with symptomatic treatment. Resume home medication. Monitor labs and vitals. DVT and GI prophylaxis. Further recommendations as per clinical course of the patient DVT prophylaxis: Xarelto GI Prophylaxis: Pepcid PT/OT: Pending Prognosis is guarded
--- NOTE | 2024-05-20 14:23 | P.PN ---
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 In the ER, patient was noted to be diaphoretic, was also noted to be slightly short of breath, EKG question the possibility of ST elevation myocardial infarction cardiology was notified, patient underwent cardiac catheterization and he was found to have no evidence of significant coronary artery disease, but he was found to have severe LV dysfunction, elevated left-sided filling pressures, also found to have apical hypokinesis consistent with Takotsubo's cardiomyopathy. Patient was placed on norepinephrine for low blood pressure at 0.05 mcg/kg/min, transferred to the ICU, and I was asked to see him in consultation. In spite of norepinephrine, patient was noted to be hypotensive and diaphoretic, went ahead and established a right femoral triple-lumen catheter, and his norepinephrine will be titrated accordingly to maintain mean arterial pressure of 65 or higher chest x-ray on admission showed evidence of mild interstitial edema and pulmonary vascular congestion. BNP level was 12,900. Patient was evaluated today on 05/20/2024, patient is feeling better today, he is hemodynamically stable, off norepinephrine, however he has persistent cough and wheezing. Chest x-ray showed no evidence of congestive heart failure and no evidence of pneumonia but on physical examination patient sounded quite congested. Hence I will give the patient a trial of gentle diuresis along with bronchodilators and steroids/Decadron. Patient will be placed on bronchodilators, he had no previous history of asthma or COPD, patient never smoked WBC count is 6 hemoglobin is 10.9. Basic metabolic profile is normal renal profile is normal with a creatinine of 0.92 Objective - Vital Signs Vital signs: Vital Signs Temp 99.3 F 05/20/24 08:00 Pulse 78 05/20/24 11:47 Resp 20 05/20/24 10:00 BP 98/54 05/20/24 11:00 Pulse Ox 95 05/20/24 11:37 FiO2 Intake & Output 05/19/24 05/20/24 05/20/24 18:59 06:59 18:59 Intake Total 523.815 1881.378 125 Output Total 240 725 525 Balance 447.322 500.378 -400 Weight 121.971 kg 116.1 kg Intake: IV 355 975 125 Sodium Chloride 0.9% 1, 300 975 125 000 ml @ 75 mls/hr IV . [id number] [facility] Rx#:[id number] Intake, IV Titration 92.322 10.378 Amount Norepinephrine 4 mg In 92.322 10.378 Sodium Chloride 0.9% 250 ml @ 0.03 MCG/KG/MIN 13. 941 mls/hr IV .[id number] [facility] Rx#:[id number] Oral 240 240 Output: Urine 240 725 525 Other: Voiding Method Urinal Urinal Urinal - Exam General: Reveals 78-year-old white male pleasant in no distress Skin: No rashes Eye: Pupils are equal, round and reactive to light, extra-ocular movements are intact; there is normal conjunctiva bilaterally. Ears, nose, mouth and throat: There are moist mucous membranes and no oral lesions. Neck: The neck is supple, there is no tenderness or JVD. Cardiovascular: There is a regular rate and rhythm. No murmur, rub or gallop is appreciated. Respiratory: Clear and wheezes noted bilaterally. Gastrointestinal: Soft, non-distended, non-tender abdomen without masses or organomegaly noted. There is no rebound or guarding present. Bowel sounds are unremarkable. Back: There is no tenderness to palpation in the midline. There is no obvious deformity. Musculoskeletal: Normal ROM, no tenderness, There is no pedal edema. There is no calf tenderness or swelling. No cords were appreciated. Neurological: CN II-XII intact, Cranial nerves III through XII are intact. There are no obvious motor or sensory deficits. Coordination appears grossly intact. Speech is normal. Psychiatric: Cooperative, appropriate mood & affect, normal judgment. - Labs CBC & Chem 7: 05/20/24 06:40 05/20/24 06:40 Labs: Abnormal Lab Results - Last 24 Hours (Table) 05/19/24 05/19/24 05/19/24 Range/Units 14:24 14:45 14:45 RBC (4.30-5.90) m/uL Hgb (13.0-17.5) gm/dL Hct (39.0-53.0) % Lymphocytes # (1.0-4.8) k/uL D-Dimer (<0.60) mg/L FEU ABG pO2 123 H (83-108) mmHg ABG HCO3 26 H (21-25) mmol/L ABG Total CO2 27 H (19-24) mmol/L ABG O2 Saturation 99.2 H (94-97) % Sodium 133 L (137-145) mmol/L BUN 26 H (9-20) mg/dL Glucose 105 H (74-99) mg/dL Troponin I 1.300 H* (0.000-0.034) ng/mL C-Reactive Protein (<1.0) mg/dL Procalcitonin (0.02-0.50) ng/mL Ur Specific [place] (1.001-1.035) Urine Protein (Negative) Ur Leukocyte Esterase (Negative) Urine WBC (0-5) /hpf Urine Mucus (None) /hpf 05/19/24 05/19/24 05/19/24 Range/Units 14:45 14:45 14:45 RBC (4.30-5.90) m/uL Hgb (13.0-17.5) gm/dL Hct (39.0-53.0) % Lymphocytes # (1.0-4.8) k/uL D-Dimer 0.63 H (<0.60) mg/L FEU ABG pO2 (83-108) mmHg ABG HCO3 (21-25) mmol/L ABG Total CO2 (19-24) mmol/L ABG O2 Saturation (94-97) % Sodium (137-145) mmol/L BUN (9-20) mg/dL Glucose (74-99) mg/dL Troponin I (0.000-0.034) ng/mL C-Reactive Protein 3.3 H (<1.0) mg/dL Procalcitonin 1.37 H (0.02-0.50) ng/mL Ur Specific [place] (1.001-1.035) Urine Protein (Negative) Ur Leukocyte Esterase (Negative) Urine WBC (0-5) /hpf Urine Mucus (None) /hpf 05/19/24 05/20/24 05/20/24 Range/Units 15:39 06:40 06:40 RBC 4.01 L (4.30-5.90) m/uL Hgb 10.9 L (13.0-17.5) gm/dL Hct 34.9 L (39.0-53.0) % Lymphocytes # 0.8 L (1.0-4.8) k/uL D-Dimer (<0.60) mg/L FEU ABG pO2 (83-108) mmHg ABG HCO3 (21-25) mmol/L ABG Total CO2 (19-24) mmol/L ABG O2 Saturation (94-97) % Sodium 133 L (137-145) mmol/L BUN 23 H (9-20) mg/dL Glucose 113 H (74-99) mg/dL Troponin I (0.000-0.034) ng/mL C-Reactive Protein (<1.0) mg/dL Procalcitonin (0.02-0.50) ng/mL Ur Specific [place] >1.050 H (1.001-1.035) Urine Protein 1+ H (Negative) Ur Leukocyte Esterase Trace H (Negative) Urine WBC 9 H (0-5) /hpf Urine Mucus Occasional H (None) /hpf Microbiology - Last 24 Hours (Table) 05/19/24 18:50 Gram Stain - Preliminary Sputum Assessment and Plan Assessment: Impression: Nonischemic cardiomyopathy/Takotsubo syndrome Hypotension secondary to above, resolved, patient is off norepinephrine Mild congestive heart failure secondary to severe LV dysfunction History of chronic atrial fibrillation Relatively normal coronary arteries other than the mid LAD stenosis 10 to 20% noted on cardiac catheterization Benign essential hypertension History of hypothyroidism Acute bronchospasm, exact etiology is not clear. Recommendation: Continue present supportive care measures Gentle diuresis Bronchodilators in the form of DuoNeb, Symbicort, and Decadron Could transfer to cardiac floor with monitor Resume home meds including Xarelto Diet and DVT prophylaxis Will continue to follow Time with Patient: Less than 30
--- NOTE | 2024-05-20 17:29 | CA ---
Transthoracic Echo Report Name: Carlos Manuel Bustos Age: 78 Gender: M : 1945 Exam Date: 05/20/2024 07:52 Exam Location: [facility] Ht (in): 73 Wt (lb): 268 Ordering Physician: Tremayne Beasley MD Attending/Referring Phys: Spine Surgeon Renea Gonsalves RDCS Procedure CPT: Indications: chf Cardiac Hx: Technical Quality: Very technically difficult study Contrast 1: Definity Total Dose (mL): 2 Contrast 2: Total Dose (mL): MEASUREMENTS (Male / Female) Normal Values 2D ECHO LV Diastolic Volume MOD BP 151.0 cm??? 67 - 155 / 56 - 104 cm??? LV Systolic Volume MOD BP 53.0 cm??? 22 - 58 / 19 - 49 cm??? LV Ejection Fraction MOD BP 64.9 % >= 55 % LV Cardiac Index MOD BP 2812.7 cm???/min???m??? LV Diastolic Volume MOD 4C 144.4 cm??? LV Systolic Volume MOD 4C 45.9 cm??? LV Ejection Fraction MOD 4C 68.2 % LV Cardiac Index MOD 4C 2825.8 cm???/min???m??? LV Diastolic Length 4C 9.0 cm LV Systolic Length 4C 7.1 cm LV Diastolic Volume MOD 2C 156.7 cm??? LV Systolic Volume MOD 2C 56.2 cm??? LV Ejection Fraction MOD 2C 64.1 % LV Cardiac Index MOD 2C 2885.6 cm???/min???m??? LV Diastolic Length 2C 8.8 cm LV Systolic Length 2C 6.4 cm FINDINGS Left Ventricle Left ventricular ejection fraction is estimated at 50 %. Right Ventricle Right ventricle not well visualized. Right Atrium Left Atrium Mitral Valve Aortic Valve Tricuspid Valve Pulmonic Valve Pericardium No pericardial effusion. Aorta CONCLUSIONS Diagnosis: CHF Preserved LV size and function without wall motion abnormality Left ventricular ejection fraction greater than 50-55% Previewed by: Dr. Wilian Duran MD (Electronically Signed) Final Date: 20 May 2024 17:28
[2024-05-20] MEDS: RIVAROXABAN 20 MG TAB PO SCH (17:56)
--- NOTE | 2024-05-20 20:29 | P.PN ---
Subjective Progress Note Date: 05/20/24 Principal diagnosis: Reason for follow-up is pneumonia Patient is a 78-year-old male with a past medical history significant for hypertension COPD atrial fibrillation sleep apnea osteoarthritis prostate cancer status post prostatectomy patient presenting to the ER for evaluation of chest tightness and shortness of breath patient did have cardiac cath normal coronaries low EF has been diagnosed with Takotsubo cardiomyopathy he also have a low-grade fever cough with purulent sputum concerning for pneumonia. On today's evaluation that is 05/20/2024, Patient is afebrile this morning patient denies having any chest pain was complaining of shortness of breath this morning he also have a cough and bring up some sputum, the patient is breathing comfortably and currently on room air, patient denies any abdominal pain no diarrhea no nausea no vomiting. Patient did have a white count of 6.0 creatinine 0.92 procalcitonin is 1.37 urine for Legionella antigen is negative sputum cultures are pending Objective - Vital Signs Vital signs: Vital Signs Temp 99.3 F 05/20/24 08:00 Pulse 78 05/20/24 11:47 Resp 20 05/20/24 10:00 BP 98/54 05/20/24 11:00 Pulse Ox 95 05/20/24 11:37 FiO2 Intake & Output 05/19/24 05/20/24 05/20/24 18:59 06:59 18:59 Intake Total 706.117 8596.378 125 Output Total 489 509 8145 Balance 447.322 500.378 -1100 Weight 121.971 kg 116.1 kg Intake: IV 355 975 125 Sodium Chloride 0.9% 1, 300 975 125 000 ml @ 75 mls/hr IV . [id number] [facility] Rx#:[id number] Intake, IV Titration 92.322 10.378 Amount Norepinephrine 4 mg In 92.322 10.378 Sodium Chloride 0.9% 250 ml @ 0.03 MCG/KG/MIN 13. 941 mls/hr IV .[id number] [facility] Rx#:[id number] Oral 240 240 Output: Urine 428 089 5496 Other: Voiding Method Urinal Urinal Urinal - Exam GENERAL DESCRIPTION: An elderly male lying in bed in no distress RESPIRATORY SYSTEM: Unlabored breathing , decreased breath sounds at bases HEART: S1 S2 regular rate and rhythm , ABDOMEN: Soft , no tenderness EXTREMITIES: No edema feet - Labs CBC & Chem 7: 05/20/24 06:40 05/20/24 06:40 Labs: Abnormal Lab Results - Last 24 Hours (Table) 05/19/24 05/19/24 05/19/24 Range/Units 14:45 14:45 14:45 RBC (4.30-5.90) m/uL Hgb (13.0-17.5) gm/dL Hct (39.0-53.0) % Lymphocytes # (1.0-4.8) k/uL D-Dimer 0.63 H (<0.60) mg/L FEU Sodium 133 L (137-145) mmol/L BUN 26 H (9-20) mg/dL Glucose 105 H (74-99) mg/dL Troponin I 1.300 H* (0.000-0.034) ng/mL C-Reactive Protein (<1.0) mg/dL Procalcitonin (0.02-0.50) ng/mL Ur Specific [place] (1.001-1.035) Urine Protein (Negative) Ur Leukocyte Esterase (Negative) Urine WBC (0-5) /hpf Urine Mucus (None) /hpf 05/19/24 05/19/24 05/19/24 Range/Units 14:45 14:45 15:39 RBC (4.30-5.90) m/uL Hgb (13.0-17.5) gm/dL Hct (39.0-53.0) % Lymphocytes # (1.0-4.8) k/uL D-Dimer (<0.60) mg/L FEU Sodium (137-145) mmol/L BUN (9-20) mg/dL Glucose (74-99) mg/dL Troponin I (0.000-0.034) ng/mL C-Reactive Protein 3.3 H (<1.0) mg/dL Procalcitonin 1.37 H (0.02-0.50) ng/mL Ur Specific [place] >1.050 H (1.001-1.035) Urine Protein 1+ H (Negative) Ur Leukocyte Esterase Trace H (Negative) Urine WBC 9 H (0-5) /hpf Urine Mucus Occasional H (None) /hpf 05/20/24 05/20/24 Range/Units 06:40 06:40 RBC 4.01 L (4.30-5.90) m/uL Hgb 10.9 L (13.0-17.5) gm/dL Hct 34.9 L (39.0-53.0) % Lymphocytes # 0.8 L (1.0-4.8) k/uL D-Dimer (<0.60) mg/L FEU Sodium 133 L (137-145) mmol/L BUN 23 H (9-20) mg/dL Glucose 113 H (74-99) mg/dL Troponin I (0.000-0.034) ng/mL C-Reactive Protein (<1.0) mg/dL Procalcitonin (0.02-0.50) ng/mL Ur Specific [place] (1.001-1.035) Urine Protein (Negative) Ur Leukocyte Esterase (Negative) Urine WBC (0-5) /hpf Urine Mucus (None) /hpf Microbiology - Last 24 Hours (Table) 05/19/24 18:50 Gram Stain - Preliminary Sputum Assessment and Plan (1) Pneumonia Current Visit: Yes Status: Acute Code(s): J18.9 - PNEUMONIA, UNSPECIFIED ORGANISM SNOMED Code(s): 037874284 (2) Fever Current Visit: No Status: Acute Code(s): R50.9 - FEVER, UNSPECIFIED SNOMED Code(s): 438483300 Plan: 1patient presented to hospital with chest tightness and this patient who also have a cough and bring up some purulent sputum did have a low-grade fever underlying pneumonia not entirely excluded in this patient has been diagnosed with Takotsubo cardiomyopathy by cardiology s/p cardiac cath with elevated normal coronaries. 2patient did have elevated CRP and procalcitonin and sputum culture currently pending 3-patient to continue with Rocephin 2 g daily while waiting for the culture to be finalized Dictation was produced using [employer] dictation software. please excuse any grammatical, word or spelling errors. Time with Patient: Less than 30
--- NOTE | 2024-05-20 22:12 | P.PN ---
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 Yesterday symptoms were on and off. This morning his symptoms got intense therefore he called EMS. EMS performed an EKG which showed sinus rhythm with right bundle branch block with concerns of a stimulations in inferior lead. For this he was brought to the [facility] ER. Cardiology was paged for STEMI evaluation. Patient was immediately evaluated at bedside. Patient reported substernal chest heaviness along with significant diaphoresis and sense of impending doom. 2 weeks ago patient was admitted to [facility] and was treated for A-fib RVR. His echocardiogram showed an EF of 40 to 45% with severe concentric LVH. It appears that patient does have prior history of cardiomyopathy with unknown EF of 40 to 45%. Admission ECG in the ER showed sinus rhythm with right bundle branch block with some concerns of ST elevations in inferior lead. When compared to prior ECG from 2 weeks ago and from November 2023, it appears that patient's QRS was not prolonged on those ECGs and he only had incomplete right bundle branch block. Due to this, patient was emergently taken to the cardiac catheterization lab. Verbal consent was obtained and procedural steps were explained to the patient. Risk factors were explained. Patient agreed to proceed. Cardiac analyzation showed mild nonobstructive CAD, it did show evidence of stress cardiomyopathy on LV gram. Progress note May 20, 2024 Patient's heart cath yesterday did not show any obstructive coronary artery disease. His LV gram did show mild stress cardiomyopathy with some apical hypokinesia. His limited echocardiogram today shows an EF of 50%. Patient is doing much better today. He is hemodynamically stable. Yesterday his systolic blood pressure was in mid 80s. For this he was requiring support from norepinephrine. His chest x-ray does not show pulmonary congestion but his CRP levels and procalcitonin levels are elevated. Patient also reports purulent sputum production with coughing. PHYSICAL EXAMINATION Vital signs reviewed. Head: Normocephalic. Eyes: Sclerae nonicteric. Neck: Brisk carotid upstroke, no jugular venous distention. Lungs: Clear to auscultation. Heart: Regular rate and rhythm, S1-S2, no S3, no murmur or rub. Abdomen: Soft nontender, positive bowel sounds. Extremities: No edema, intact distal pulses. Neuro: Alert, oritented, no focal deficits. Detailed neuro exam was not performed. ASSESSMENT Presented with ECG changes concerning of inferior STEMI --> cardiac cath showed mild nonobstructive CAD, LV gram showed mild apical hypokinesia, possible stress cardiomyopathy. Chest pressure with diaphoresis and sense of impending doom on admission Intermittent right bundle branch block, currently QRS is narrow currently in sinus rhythm Prior history of cardiomyopathy with a EF of 40 to 45%. Current echocardiogram showed EF of 50% Moderate concentric LVH Paroxysmal atrial fibrillation, currently in sinus rhythm Pneumonia Obesity JENNIFER Prior cardiac testing Echo May 19, 2024, EF 50 to 55% Cardiac cath May 19, 2024: Nonobstructive mild CAD in LAD. Mild apical hypokinesia on LV gram. Echo April 30, 2024: EF 50-55%, moderate to severe concentric LVH, moderately dilated left atrium, mild MR PLAN Continue aspirin 81 mg, Lipitor 20 mg, Resume Xarelto 20 mg daily. Start metoprolol succinate 50 mg daily I will discontinue patient's sotalol as I feel that is contributing to patient's interventricular conduction delay. Patient also has moderate LVH and sotalol might not be the best antiarrhythmic in this situation. If needed patient should be started on amiodarone. At this time patient is in sinus rhythm. Will let the decision for rhythm control to be decided on outpatient follow-up with his primary field service manager Dr. Keo Riggins Patient is okay to be transferred out of ICU. Anticipate discharge in next 24 to 48 hours Objective - Vital Signs Vital signs: Vital Signs Temp 99.1 F 05/20/24 16:00 Pulse 78 05/20/24 21:33 Resp 15 05/20/24 19:00 BP 125/64 05/20/24 19:00 Pulse Ox 94 L 05/20/24 19:00 FiO2 Intake & Output 05/20/24 05/20/24 05/21/24 06:59 18:59 06:59 Intake Total 1225.378 245 Output Total 725 1350 Balance 500.378 -1105 Weight 116.1 kg Intake: IV 975 125 Sodium Chloride 0.9% 1, 975 125 000 ml @ 75 mls/hr IV . [id number] [facility] Rx#:[id number] Intake, IV Titration 10.378 Amount Norepinephrine 4 mg In 10.378 Sodium Chloride 0.9% 250 ml @ 0.03 MCG/KG/MIN 13. 941 mls/hr IV .[id number] [facility] Rx#:[id number] Oral 240 120 Output: Urine 725 1350 Other: Voiding Method Urinal Toilet Urinal - Labs CBC & Chem 7: 05/20/24 06:40 05/20/24 06:40 Labs: Abnormal Lab Results - Last 24 Hours (Table) 05/19/24 05/20/24 05/20/24 Range/Units 14:45 06:40 06:40 RBC 4.01 L (4.30-5.90) m/uL Hgb 10.9 L (13.0-17.5) gm/dL Hct 34.9 L (39.0-53.0) % Lymphocytes # 0.8 L (1.0-4.8) k/uL Sodium 133 L (137-145) mmol/L BUN 23 H (9-20) mg/dL Glucose 113 H (74-99) mg/dL Procalcitonin 1.37 H (0.02-0.50) ng/mL Microbiology - Last 24 Hours (Table) 05/19/24 14:54 Blood Culture - Preliminary Blood 05/19/24 18:50 Gram Stain - Preliminary Sputum
[2024-05-20] MEDS: METOPROLOL SUCCINATE (ER) 50 MG TAB.ER.24H PO SCH (23:23)
[2024-05-21] MEDS: ALPRAZolam 1 MG TAB PO PRN (08:31)
[2024-05-21] MEDS: methylPREDNISolone SOD SUCCI 125 MG/2 ML VIAL IV SCH (13:07)
[2024-05-21] MEDS: FUROSEMIDE 10 MG/ML 2 ML VIAL IV ONE (13:08)
--- NOTE | 2024-05-21 13:22 | P.PN ---
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 In the ER, patient was noted to be diaphoretic, was also noted to be slightly short of br eath, EKG question the possibility of ST elevation myocardial infarction cardiology was notified, patient underwent cardiac catheterization and he was found to have no evidence of significant coronary artery disease, but he was found to have severe LV dysfunction, elevated left-sided filling pressures, also found to have apical hypokinesis consistent with Takotsubo's cardiomyopathy. Patient was placed on norepinephrine for low blood pressure at 0.05 mcg/kg/min, transferred to the ICU, and I was asked to see him in consultation. In spite of norepinephrine, patient was noted to be hypotensive and diaphoretic, went ahead and established a right femoral triple-lumen catheter, and his norepinephrine will be titrated accordingly to maintain mean arterial pressure of 65 or higher chest x-ray on admission showed evidence of mild interstitial edema and pulmonary vascular congestion. BNP level was 12,900. Patient was evaluated today on 05/20/2024, patient is feeling better today, he is hemodynamically stable, off norepinephrine, however he has persistent cough and wheezing. Chest x-ray showed no evidence of congestive heart failure and no evidence of pneumonia but on physical examination patient sounded quite congested. Hence I will give the patient a trial of gentle diuresis along with bronchodilators and steroids/Decadron. Patient will be placed on bronchodilators, he had no previous history of asthma or COPD, patient never smoked WBC count is 6 hemoglobin is 10.9. Basic metabolic profile is normal renal profile is normal with a creatinine of 0.92 Patient was evaluated today on 05/21/2024 continues to have intermittent cough and wheezing, he is hemodynamically stable, not requiring any norepinephrine. Chest x-ray showed no evidence of infiltrates, on cardiac catheterization patient was found to have elevated left ventricular end-diastolic pressures consistent with mild congestive heart failure. Clearly appreciated on the chest x-ray, but the BNP level is elevated. Did receive Lasix yesterday, and he will receive Lasix today. In the meantime I am recommending bronchodilators for his bronchospasm. Patient never smoked, he did have previous exposure to bleach inhalation, and I believe the patient may have developed reactive airway dysfunction syndrome. I will continue bronchodilators, and today I am recommending Solu-Medrol 60 mg IV push every 6 hours. WBC count is 6 hemoglobin 10.9 electrolytes are normal renal profile is normal, BNP level on admission was 12,900, procalcitonin level is slightly elevated unclear significance for elevated procalcitonin level since his chest x-ray showed no evidence of pneumonia Objective - Vital Signs Vital signs: Vital Signs Temp 98.2 F 05/21/24 12:00 Pulse 75 05/21/24 13:00 Resp 12 05/21/24 13:00 BP 129/67 05/21/24 12:00 Pulse Ox 96 05/21/24 11:00 FiO2 Intake & Output 05/20/24 05/21/24 05/21/24 18:59 06:59 18:59 Intake Total 245 Output Total 1350 200 500 Balance -1105 -200 -500 Weight 115.9 kg Intake: IV 125 Sodium Chloride 0.9% 1, 125 000 ml @ 75 mls/hr IV . [id number] [facility] Rx#:[id number] Oral 120 Output: Urine 1350 200 500 Other: Voiding Method Toilet Toilet Toilet Urinal Urinal Urinal - Exam General: Reveals 78-year-old white male pleasant in no distress Skin: No rashes Eye: Pupils are equal, round and reactive to light, extra-ocular movements are intact; there is normal conjunctiva bilaterally. Ears, nose, mouth and throat: There are moist mucous membranes and no oral lesions. Neck: The neck is supple, there is no tenderness or JVD. Cardiovascular: There is a regular rate and rhythm. No murmur, rub or gallop is appreciated. Respiratory: Rhonchi and wheezes persist bilaterally more so on forced expiratory maneuver Gastrointestinal: Soft, non-distended, non-tender abdomen without masses or organomegaly noted. There is no rebound or guarding present. Bowel sounds are u nremarkable. Back: There is no tenderness to palpation in the midline. There is no obvious deformity. Musculoskeletal: Normal ROM, no tenderness, There is no pedal edema. There is no calf tenderness or swelling. No cords were appreciated. Neurological: CN II-XII intact, Cranial nerves III through XII are intact. There are no obvious motor or sensory deficits. Coordination appears grossly int act. Speech is normal. Psychiatric: Cooperative, appropriate mood & affect, normal judgment. - Labs CBC & Chem 7: 05/20/24 06:40 05/20/24 06:40 Labs: Microbiology - Last 24 Hours (Table) 05/19/24 18:50 Gram Stain - Preliminary Sputum Sputum Culture - Preliminary 05/19/24 14:54 Blood Culture - Preliminary Blood Assessment and Plan Assessment: Impression: Nonischemic cardiomyopathy/Takotsubo syndrome Hypotension secondary to above, resolved, patient is off norepinephrine Mild congestive heart failure secondary to severe LV dysfunction patient had elevated left ventricular end-diastolic pressures noted on the cardiac catheterization History of chronic atrial fibrillation Relatively normal coronary arteries other than the mid LAD stenosis 10 to 20% noted on cardiac catheterization Benign essential hypertension History of hypothyroidism Acute bronchospasm, possible reactive airway dysfunction syndrome, patient gave me a clear-cut history of exposure to bleach in the past, and had issues related to his lungs back then Recommendation: Continue present supportive care measures Gentle diuresis, Lasix was ordered again today. Continue Solu-Medrol 60 mg IV push every 6 hours Bronchodilators in the form of DuoNeb, Symbicort Could transfer to cardiac floor with monitor Resume home meds including Xarelto Diet and DVT prophylaxis Will continue to follow Time with Patient: Less than 30
--- NOTE | 2024-05-21 16:35 | P.PN ---
Subjective Progress Note Date: 05/21/24 This is a pleasant 78 years old male with past medical history of multiple medical problems as below Patient presents on the May 19 for worsening shortness of breath of 3 days duration and had low-grade temperature of 100.6. However on admission he has elevated troponin he underwent cardiac cath by car diologist which are with mild nonobstructive coronary artery disease but evidence of stress cardiomyopathy with low ejection fraction like 40 to 45% causing some hypotension and also by possible infection and pneumonia Pulmonary and infectious disease following closely. Pro- Calcitonin elevated 1.37. Patient was started on ceftriaxone. Patient required some small dose of Levophed but currently he is off pressors Patient also on Xarelto and some normal saline for his history of paroxysmal A- fib Continued on aspirin and Protonix Urinalysis negative for infection No more fever today Patient still feels some congestion he has good oxygen saturation. Currently remains also on ceftriaxone 05/21/2024 Patient is seen and evaluated in follow-up status post cardiac catheterization with cardiology following closely continues in the ICU although is a downgrade to 3 S. once a bed is available. Patient is off pressor support and reports to feeling better. Patient with significant weakness would recommend PT/OT therapy. Patient continues on antibiotics in the form of ceftriaxone with concerns of pneumonia, present on admission. Procalcitonin elevated at 1.37. Urine Legionella is negative and labs including kidney functions have improved today. Vital signs are stable and patient is afebrile and maintaining oxygen saturations above 95% on room air. Patient reports he follows with Dr. Galarza. 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 Patient reports to having wheezing and reports he is not a smoker although when he was a child him and his brother had made a concoction with bleach and ammonia and had been inhaling it and could have contributed to some lung damage. Patient does use inhalers as needed. Patient also was evaluated by Dr. Murrell out of [facility] facility and was diagnosed with sleep apnea a while back although lost some weight and has not been using his CPAP in the outpatient setting. Patient is being started on IV steroids along with breathing treatments per pulmonary. X-ray is not indicative of a pneumonia. Home medications reviewed and resumed as appropriate including Xarelto. Patient was given a dose of IV Lasix today. Review of systems CONSTITUTIONAL: No fever, no malaise, no fatigue. Respiratory: Reports of wheezing and cough with bronchial congestion GASTROINTESTINAL: No diarrhea, no nausea, no vomiting, no abdominal pain. Normoactive bowel sounds. NEUROLOGICAL: No headaches, no weakness, no numbness. HEMATOLOGICAL: Denies any bleeding or petechiae. GENITOURINARY: Denies any burning micturition, frequency, or urgency. MUSCULOSKELETAL/RHEUMATOLOGICAL: Denies any joint pain, swelling, or any muscle pain. ENDOCRINE: Denies any polyuria or polydipsia. Physical exam: Gen: This is a 78-year-old male who is awake, alert and oriented x 3, well- developed, well-nourished, obese, elderly appearing, somewhat slow to respond although this appears normal HEENT: Head is atraumatic, normocephalic. Pupils equal, round. Sclerae is anicteric. NECK: Supple. No JVD. No lymphadenopathy. No thyromegaly. LUNGS: Diminished breath sounds bilaterally otherwise Faint expiratory wheezes and coarse rhonchi noted. No intercostal retractions. HEART: S1, S2 are muffled ABDOMEN: Soft. Obese bowel sounds are present. No masses. No tenderness. EXTREMITIES: No pedal edema. No calf tenderness. NEUROLOGICAL: Patient is awake, alert and oriented x3. Cranial nerves 2 through 12 are grossly intact. Diffusely weak Assessment: Inferior STEMI status post cardiac cath showing mild nonobstructive CAD Stress cardiomyopathy with low ejection fraction 40 to 45% Hypertension currently improved thought secondary to cardiac disease and infection Possible community-acquired pneumonia Paroxysmal atrial fibrillation Obesity with BMI of 33.8 Plan: Patient continues in the ICU although is a downgrade once a bed on 3 S. becomes available Cardiology following making adjustments to medications status post cardiac catheterization maximizing medical management Pulmonary following as well and is being started on DuoNeb treatments along with IV steroids as patient is having some bronchial congestion and wheezing on exam. Patient does not have history of COPD and is not a smoker although reports to having history of inhaling some ammonia and bleach as a child and having difficulties. Patient also was noted to have history of sleep apnea in the past and lost some weight and has not been using his CPAP for quite some time. Follow-up labs ordered for a.m. Home medications including aspirin and Xarelto have been resumed Patient is to continue on ceftriaxone for now and await culture reports. Procalcitonin was mildly elevated although chest x-ray was not indicative of pneumonia Encouraged to increase activity as tolerated Plan is for patient to return home once discharged, currently awaiting cardiology and pulmonary clearance The impression and plan of care has been dictated by Shreya Allan, Nurse Practitioner as directed. Dr. Radha MD I have performed a history and examination and MDM of this patient, discussed the same with the dictator, and agree with the dictator's assessment and plan as written ,documented as a scribe. Based on total visit time, I have performed more than 50% of the visit. Objective - Vital Signs Vital signs: Vital Signs Temp 98.3 F 05/21/24 04:00 Pulse 84 05/21/24 08:56 Resp 24 05/21/24 07:00 BP 169/86 05/21/24 07:00 Pulse Ox 94 L 05/21/24 03:00 FiO2 Intake & Output 05/20/24 05/21/24 05/21/24 18:59 06:59 18:59 Intake Total 245 Output Total 1350 200 Balance -1105 -200 Weight 115.9 kg Intake: IV 125 Sodium Chloride 0.9% 1, 125 000 ml @ 75 mls/hr IV . [id number] [facility] Rx#:[id number] Oral 120 Output: Urine 1350 200 Other: Voiding Method Toilet Toilet Urinal Urinal - Labs CBC & Chem 7: 05/20/24 06:40 05/20/24 06:40 Labs: Microbiology - Last 24 Hours (Table) 05/19/24 14:54 Blood Culture - Preliminary Blood 05/19/24 18:50 Gram Stain - Preliminary Sputum
--- NOTE | 2024-05-21 16:49 | P.PN ---
Subjective Progress Note Date: 05/21/24 Principal diagnosis: Reason for follow-up is pneumonia Patient is a 78-year-old male with a past medical history significant for hypertension COPD atrial fibrillation sleep apnea osteoarthritis prostate cancer status post prostatectomy patient presenting to the ER for evaluation of chest tightness and shortness of breath patient did have cardiac cath normal coronaries low EF has been diagnosed with Takotsubo cardiomyopathy he also have a low-grade fever cough with purulent sputum concerning for pneumonia. On today's evaluation that is 05/21/2024,the patient denies any fever or any chills, patient is breathing comfortably on room air, the patient denies chest pain shortness of breath still complaining of a congested cough, patient denies abdominal pain, no nausea vomiting or diarrhea rather constipated. Patient white count 6.0, creatinine 0.92 blood and sputum cultures currently pending Objective - Vital Signs Vital signs: Vital Signs Temp 97.7 F 05/21/24 14:31 Pulse 86 05/21/24 16:18 Resp 17 05/21/24 15:38 BP 114/70 05/21/24 15:38 Pulse Ox 95 05/21/24 15:38 FiO2 Intake & Output 05/20/24 05/21/24 05/21/24 18:59 06:59 18:59 Intake Total 245 Output Total 1350 200 500 Balance -1105 -200 -500 Weight 115.9 kg Intake: IV 125 Sodium Chloride 0.9% 1, 125 000 ml @ 75 mls/hr IV . [id number] [facility] Rx#:[id number] Oral 120 Output: Urine 1350 200 500 Other: Voiding Method Toilet Toilet Toilet Urinal Urinal Urinal - Exam GENERAL DESCRIPTION: An elderly male lying in bed in no distress RESPIRATORY SYSTEM: Unlabored breathing , decreased breath sounds at bases HEART: S1 S2 regular rate and rhythm , ABDOMEN: Soft , no tenderness EXTREMITIES: No edema feet - Labs CBC & Chem 7: 05/20/24 06:40 05/20/24 06:40 Labs: Microbiology - Last 24 Hours (Table) 05/19/24 18:50 Gram Stain - Preliminary Sputum Sputum Culture - Preliminary 05/19/24 14:54 Blood Culture - Preliminary Blood Assessment and Plan (1) Pneumonia Current Visit: Yes Status: Acute Code(s): J18.9 - PNEUMONIA, UNSPECIFIED ORGANISM SNOMED Code(s): 542565879 (2) Fever Current Visit: No Status: Acute Code(s): R50.9 - FEVER, UNSPECIFIED SNOMED Code(s): 463270749 Plan: 1patient presented to hospital with chest tightness and this patient who also have a cough and bring up some purulent sputum did have a low-grade fever underlying pneumonia not entirely excluded in this patient has been diagnosed with Takotsubo cardiomyopathy by cardiology s/p cardiac cath with elevated normal coronaries. 2patient did have elevated CRP and procalcitonin and sputum culture currently pending 3-patient did have some clinical improvement we will continue with Rocephin 2 g daily while waiting for the culture to be finalized Dictation was produced using [employer] dictation software. please excuse any grammatical, word or spelling errors. Time with Patient: Less than 30
--- NOTE | 2024-05-21 21:36 | P.PN ---
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 Yesterday symptoms were on and off. This morning his symptoms got intense therefore he called EMS. EMS performed an EKG which showed sinus rhythm with right bundle branch block with concerns of a stimulations in inferior lead. For this he was brought to the [facility] ER. Cardiology was paged for STEMI evaluation. Patient was immediately evaluated at bedside. Patient reported substernal chest heaviness along with significant diaphoresis and sense of impending doom. 2 weeks ago patient was admitted to [facility] and was treated for A-fib RVR. His echocardiogram showed an EF of 40 to 45% with severe concentric LVH. It appears that patient does have prior history of cardiomyopathy with unknown EF of 40 to 45%. Admission ECG in the ER showed sinus rhythm with right bundle branch block with some concerns of ST elevations in inferior lead. When compared to prior ECG from 2 weeks ago and from November 2023, it appears that patient's QRS was not prolonged on those ECGs and he only had incomplete right bundle branch block. Due to this, patient was emergently taken to the cardiac catheterization lab. Verbal consent was obtained and procedural steps were explained to the patient. Risk factors were explained. Patient agreed to proceed. Cardiac analyzation showed mild nonobstructive CAD, it did show evidence of stress cardiomyopathy on LV gram. Progress note May 20, 2024 Patient's heart cath yesterday did not show any obstructive coronary artery disease. His LV gram did show mild stress cardiomyopathy with some apical hypokinesia. His limited echocardiogram today shows an EF of 50%. Patient is doing much better today. He is hemodynamically stable. Yesterday his systolic blood pressure was in mid 80s. For this he was requiring support from norepinephrine. His chest x-ray does not show pulmonary congestion but his CRP levels and procalcitonin levels are elevated. Patient also reports purulent sputum production with coughing. May 21, 2024 Patient is seen and examined at bedside this a.m. Right radial access site appears to be intact with no concerns of swelling or hematoma. Hemodynamically stable. Respirations are improving with steroids and inhaler therapy. Telemetry shows sinus rhythm with occasional PACs. These PACs are more frequent as compared to previously. For this I will consider adding amiodarone. PHYSICAL EXAMINATION Vital signs reviewed. Head: Normocephalic. Eyes: Sclerae nonicteric. Neck: Brisk carotid upstroke, no jugular venous distention. Lungs: Clear to auscultation. Heart: Regular rate and rhythm, S1-S2, no S3, no murmur or rub. Abdomen: Soft nontender, positive bowel sounds. Extremities: No edema, intact distal pulses. Neuro: Alert, oritented, no focal deficits. Detailed neuro exam was not performed. ASSESSMENT Presented with ECG changes concerning of inferior STEMI --> cardiac cath showed mild nonobstructive CAD, LV gram showed mild apical hypokinesia, possible stress cardiomyopathy. Chest pressure with diaphoresis and sense of impending doom on admission Intermittent right bundle branch block, currently QRS is narrow currently in sinus rhythm Prior history of cardiomyopathy with a EF of 40 to 45%. Current echocardiogram showed EF of 50% Moderate concentric LVH Paroxysmal atrial fibrillation, currently in sinus rhythm Pneumonia Obesity JENNIFER Prior cardiac testing Echo May 19, 2024, EF 50 to 55% Cardiac cath May 19, 2024: Nonobstructive mild CAD in LAD. Mild apical hypokinesia on LV gram. Echo April 30, 2024: EF 50-55%, moderate to severe concentric LVH, moderately dilated left atrium, mild MR PLAN Continue aspirin 81 mg, Lipitor 20 mg, Resume Xarelto 20 mg daily. Start metoprolol succinate 50 mg daily I will discontinue patient's sotalol as I feel that is contributing to patient's interventricular conduction delay. Patient also has moderate LVH and sotalol might not be the best antiarrhythmic in this situation. If needed patient should be started on amiodarone. At this time patient is in sinus rhythm. Will start him on amiodarone 200 mg twice daily for 14 days. After June 04, 2024, it should be reduced to 200 mg daily. Would recommend follow-up with Dr. Keo Riggins shortly after discharge Please print my note and hand it to the patient so that patient can show it to his order taker. Cardiology team will sign off at this time. Please reconsult us in case of any questions. Objective - Vital Signs Vital signs: Vital Signs Temp 97.7 F 05/21/24 14:31 Pulse 84 05/21/24 20:49 Resp 18 05/21/24 20:49 BP 114/70 05/21/24 15:38 Pulse Ox 95 05/21/24 15:38 FiO2 Intake & Output 05/21/24 05/21/24 05/22/24 06:59 18:59 06:59 Intake Total 118 Output Total 200 500 Balance -200 -382 Weight 115.9 kg Intake: Oral 118 Output: Urine 200 500 Other: Voiding Method Toilet Toilet Urinal Urinal - Labs CBC & Chem 7: 05/20/24 06:40 05/20/24 06:40 Labs: Microbiology - Last 24 Hours (Table) 05/19/24 14:54 Blood Culture - Preliminary Blood 05/19/24 18:50 Gram Stain - Preliminary Sputum Sputum Culture - Preliminary
[2024-05-21] MEDS: AMIODARONE 200 MG TAB PO SCH (23:24)
[2024-05-22 09:56] LABS: Basophils % (A) 0 %; Eosinophils % (A) 0 %; HCT 41.6 % (39.0-53.0); HGB 12.8 gm/dL (13.0-17.5); Hypochromasia Marked; Lymphocytes # (A) 0.8 k/uL (1.0-4.8); Lymphocytes % (A) 6 %; MCH 27.2 pg (25.0-35.0); MCHC 30.7 g/dL (31.0-37.0); MCV 88.3 fL (80.0-100.0); Mean Platelet Volume 8.1; Monocytes # (A) 0.4 k/uL (0-1.0); Monocytes % (A) 3 %; Neutrophils # (A) 12.9 k/uL (1.3-7.7); Neutrophils % (A) 90 %; Platelet Count 284 k/uL (150-450); RDW 14.7 % (11.5-15.5); WBC 14.3 k/uL (3.8-10.6)
[2024-05-22 10:18] LABS: ALT 15 U/L (4-49); African American GFR (CKD) >90 (>60 ml/min/1.73 sqM); Albumin 3.3 g/dL (3.5-5.0); Anion Gap 7 mmol/L; Blood Urea Nitrogen 35 mg/dL (9-20); Calcium 8.9 mg/dL (8.4-10.2); Carbon Dioxide 21 mmol/L (22-30); Chloride 109 mmol/L (98-107); Glucose 149 mg/dL (74-99); Magnesium 1.8 mg/dL (1.6-2.3); Non-African American GFR(CKD) 80 (>60 ml/min/1.73 sqM); Sodium 137 mmol/L (137-145); Total Bilirubin 0.5 mg/dL (0.2-1.3); Total Protein 6.5 g/dL (6.3-8.2)
[2024-05-22 10:20] LABS: AST 25 U/L (17-59); Alkaline Phosphatase 52 U/L (38-126); Potassium 4.6 mmol/L (3.5-5.1)
--- NOTE | 2024-05-22 11:57 | P.PN ---
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 In the ER, patient was noted to be diaphoretic, was also noted to be slightly short of br eath, EKG question the possibility of ST elevation myocardial infarction cardiology was notified, patient underwent cardiac catheterization and he was found to have no evidence of significant coronary artery disease, but he was found to have severe LV dysfunction, elevated left-sided filling pressures, also found to have apical hypokinesis consistent with Takotsubo's cardiomyopathy. Patient was placed on norepinephrine for low blood pressure at 0.05 mcg/kg/min, transferred to the ICU, and I was asked to see him in consultation. In spite of norepinephrine, patient was noted to be hypotensive and diaphoretic, went ahead and established a right femoral triple-lumen catheter, and his norepinephrine will be titrated accordingly to maintain mean arterial pressure of 65 or higher chest x-ray on admission showed evidence of mild interstitial edema and pulmonary vascular congestion. BNP level was 12,900. Patient was evaluated today on 05/20/2024, patient is feeling better today, he is hemodynamically stable, off norepinephrine, however he has persistent cough and wheezing. Chest x-ray showed no evidence of congestive heart failure and no evidence of pneumonia but on physical examination patient sounded quite congested. Hence I will give the patient a trial of gentle diuresis along with bronchodilators and steroids/Decadron. Patient will be placed on bronchodilators, he had no previous history of asthma or COPD, patient never smoked WBC count is 6 hemoglobin is 10.9. Basic metabolic profile is normal renal profile is normal with a creatinine of 0.92 Patient was evaluated today on 05/21/2024 continues to have intermittent cough and wheezing, he is hemodynamically stable, not requiring any norepinephrine. Chest x-ray showed no evidence of infiltrates, on cardiac catheterization patient was found to have elevated left ventricular end-diastolic pressures consistent with mild congestive heart failure. Clearly appreciated on the chest x-ray, but the BNP level is elevated. Did receive Lasix yesterday, and he will receive Lasix today. In the meantime I am recommending bronchodilators for his bronchospasm. Patient never smoked, he did have previous exposure to bleach inhalation, and I believe the patient may have developed reactive airway dysfunction syndrome. I will continue bronchodilators, and today I am recommending Solu-Medrol 60 mg IV push every 6 hours. WBC count is 6 hemoglobin 10.9 electrolytes are normal renal profile is normal, BNP level on admission was 12,900, procalcitonin level is slightly elevated unclear significance for elevated procalcitonin level since his chest x-ray showed no evidence of pneumonia Patient was seen today on 05/22/2024, patient is now on the cardiac floor, doing well, asymptomatic, not in any distress, his pulmonary symptoms of cough wheezing and shortness of breath have completely resolved. WBC count today is 14.3 hemoglobin 12.8, his electrolytes are normal renal profile is normal and on physical examination he sounded significantly improved today. No wheezing was noted today Objective - Vital Signs Vital signs: Vital Signs Temp 98.0 F 05/22/24 08:00 Pulse 82 05/22/24 11:34 Resp 18 05/22/24 08:00 BP 131/71 05/22/24 08:00 Pulse Ox 97 05/22/24 08:00 FiO2 Intake & Output 05/21/24 05/22/24 05/22/24 18:59 06:59 18:59 Intake Total 118 50 Output Total 500 Balance -382 50 Weight 120.5 kg Intake: Intake, IV Titration 50 Amount cefTRIAXone 2 gm In 50 Sodium Chloride 0.9% 50 ml @ 100 mls/hr IVPB Q24HR [facility] Rx#:[id number] Oral 118 Output: Urine 500 Other: Voiding Method Toilet Toilet Toilet Urinal Urinal Urinal # Voids 2 - Exam General: Reveals 78-year-old white male pleasant in no distress Skin: No rashes Eye: Pupils are equal, round and reactive to light, extra-ocular movements are intact; there is normal conjunctiva bilaterally. Ears, nose, mouth and throat: There are moist mucous membranes and no oral lesions. Neck: The neck is supple, there is no tenderness or JVD. Cardiovascular: There is a regular rate and rhythm. No murmur, rub or gallop is appreciated. Respiratory: Clear throughout no crackles rhonchi or wheeze Gastrointestinal: Soft, non-distended, non-tender abdomen without masses or organomegaly noted. There is no rebound or guarding present. Bowel sounds are unremarkable. Back: There is no tenderness to palpation in the midline. There is no obvious deformity. Musculoskeletal: Normal ROM, no tenderness, There is no pedal edema. There is no calf tenderness or swelling. No cords were appreciated. Neurological: CN II-XII intact, Cranial nerves III through XII are intact. There are no obvious motor or sensory deficits. Coordination appears grossly intact. Speech is normal. Psychiatric: Cooperative, appropriate mood & affect, normal judgment. - Labs CBC & Chem 7: 05/22/24 09:02 05/22/24 09:02 Labs: Abnormal Lab Results - Last 24 Hours (Table) 05/22/24 05/22/24 Range/Units 09:02 09:02 WBC 14.3 H (3.8-10.6) k/uL Hgb 12.8 L (13.0-17.5) gm/dL MCHC 30.7 L (31.0-37.0) g/dL Neutrophils # 12.9 H (1.3-7.7) k/uL Lymphocytes # 0.8 L (1.0-4.8) k/uL Chloride 109 H (98-107) mmol/L Carbon Dioxide 21 L (22-30) mmol/L BUN 35 H (9-20) mg/dL Glucose 149 H (74-99) mg/dL Albumin 3.3 L (3.5-5.0) g/dL Microbiology - Last 24 Hours (Table) 05/19/24 18:50 Gram Stain - Final Sputum Sputum Culture - Final 05/19/24 14:54 Blood Culture - Preliminary Blood Assessment and Plan Assessment: Impression: Nonischemic cardiomyopathy/Takotsubo syndrome significantly improved based on a repeat echocardiogram Hypotension secondary to above, resolved Mild congestive heart failure secondary to severe LV dysfunction patient had elevated left ventricular end-diastolic pressures noted on the cardiac catheterization History of chronic atrial fibrillation Relatively normal coronary arteries other than the mid LAD stenosis 10 to 20% noted on cardiac catheterization Benign essential hypertension History of hypothyroidism Acute bronchospasm, possible reactive airway dysfunction syndrome, significantly improved with steroids and bronchodilator Recommendation: Continue present supportive care measures Transition Solu-Medrol to Medrol Dosepak upon discharge Continue bronchodilators including DuoNeb and Symbicort Consider discharge planning in the next 24 hours Resume home meds including Xarelto Diet and DVT prophylaxis Will need outpatient follow-up Will continue to follow Time with Patient: Less than 30
--- NOTE | 2024-05-22 15:09 | P.PN ---
Subjective Progress Note Date: 05/22/24 This is a pleasant 78 years old male with past medical history of multiple medical problems as below Patient presents on the May 19 for worsening shortness of breath of 3 days duration and had low-grade temperature of 100.6. However on admission he has elevated troponin he underwent cardiac cath by drug safety scientist which are with mild nonobstructive coronary artery disease but evidence of stress cardiomyopathy with low ejection fraction like 40 to 45% causing some hypotension and also by possible infection and pneumonia Pulmonary and infectious disease following closely. Pro- Calcitonin elevated 1.37. Patient was started on ceftriaxone. Patient required some small dose of Levophed but currently he is off pressors Patient also on Xarelto and some normal saline for his history of paroxysmal A- fib Continued on aspirin and Protonix Urinalysis negative for infection No more fever today Patient still feels some congestion he has good oxygen saturation. Currently remains also on ceftriaxone 05/21/2024 Patient is seen and evaluated in follow-up status post cardiac catheterization with cardiology following closely continues in the ICU although is a downgrade to 3 S. once a bed is available. Patient is off pressor support and reports to feeling better. Patient with significant weakness would recommend PT/OT therapy. Patient continues on antibiotics in the form of ceftriaxone with concerns of pneumonia, present on admission. Procalcitonin elevated at 1.37. Urine Legionella is negative and labs including kidney functions have improved today. Vital signs are stable and patient is afebrile and maintaining oxygen saturations above 95% on room air. Patient reports he follows with Dr. Galarza. Patient is being followed by infectious disease, cardiology, as well as pulmonary graphite pan drier tender. Patient reports to having wheezing and reports he is not a smoker although when he was a child him and his brother had made a concoction with bleach and ammonia and had been inhaling it and could have contributed to some lung damage. Patient does use inhalers as needed. Patient also was evaluated by Dr. Murrell out of [facility] facility and was diagnosed with sleep apnea a while back although lost some weight and has not been using his CPAP in the outpatient setting. Patient is being started on IV steroids along with breathing treatments per pulmonary. X-ray is not indicative of a pneumonia. Home medications reviewed and resumed as appropriate including Xarelto. Patient was given a dose of IV Lasix today. 05/22/2024 Patient seen in follow-up today on the medical floor. Patient is s/p cardiac catheterization with no intervention and questionable Takotsubo cardiomyopathy. Patient's main complaint is of shortness of breath having difficulty with ambulation as he has been getting short of breath and only able to ambulate small distances. He is treated for a pneumonia at this time continues on IV ceftriaxone as well as bronchodilators with Symbicort, DuoNebs and continues on IV Solu-Medrol. He is 94% on room air at this time. Blood work today reveals a white blood cell count of 14.3, hemoglobin 12.8, sodium of 137, BUN of 35, creatinine of 0.93. Review of systems CONSTITUTIONAL: No fever, no malaise, no fatigue. Respiratory: Reports of wheezing and cough with bronchial congestion GASTROINTESTINAL: No diarrhea, no nausea, no vomiting, no abdominal pain. Nor moactive bowel sounds. NEUROLOGICAL: No headaches, no weakness, no numbness. HEMATOLOGICAL: Denies any bleeding or petechiae. GENITOURINARY: Denies any burning micturition, frequency, or urgency. MUSCULOSKELETAL/RHEUMATOLOGICAL: Denies any joint pain, swelling, or any muscle pain. ENDOCRINE: Denies any polyuria or polydipsia. Physical exam: Gen: This is a 78-year-old male who is awake, alert and oriented x 3, well- developed, well-nourished, obese, elderly appearing, somewhat slow to respond although this appears normal HEENT: Head is atraumatic, normocephalic. Pupils equal, round. Sclerae is anicteric. NECK: Supple. No JVD. No lymphadenopathy. No thyromegaly. LUNGS: Diminished breath sounds bilaterally otherwise Faint expiratory wheezes and coarse rhonchi noted. No intercostal retractions. HEART: S1, S2 are muffled ABDOMEN: Soft. Obese bowel sounds are present. No masses. No tenderness. EXTREMITIES: No pedal edema. No calf tenderness. NEUROLOGICAL: Patient is awake, alert and oriented x3. Cranial nerves 2 through 12 are grossly intact. Diffusely weak Assessment: Inferior STEMI status post cardiac cath showing mild nonobstructive CAD Stress cardiomyopathy with low ejection fraction 40 to 45% Hypertension currently improved thought secondary to cardiac disease and infection Possible community-acquired pneumonia, bacterial procalcitonin 1.37 Paroxysmal atrial fibrillation Obesity with BMI of 33.8 Plan: Patient is moved out of the ICU and continues on the cardiac stepdown unit Cardiology following making adjustments to medications status post cardiac catheterization maximizing medical management Pulmonary following as well and is being started on DuoNeb treatments along with IV steroids as patient is having some bronchial congestion and wheezing on exam. Patient does not have history of COPD and is not a smoker although reports to having history of inhaling some ammonia and bleach as a child and having difficulties. Patient also was noted to have history of sleep apnea in the past and lost some weight and has not been using his CPAP for quite some time. Home medications including aspirin and Xarelto have been resumed Patient is to continue on ceftriaxone for now and await culture reports. Procalcitonin was mildly elevated although chest x-ray was not indicative of pneumonia Encouraged to increase activity as tolerated Plan is for patient to return home once discharged, currently awaiting cardiology and pulmonary clearance To encourage incentive spirometer 10 times an hour while awake PT OT been consulted secondary to complaints of weakness and difficulty with ambulation. The impression and plan of care has been dictated by Dorene Galicia, Nurse Practitioner as directed. Dr. Fermín MD I have performed a history and physical examination and medical decision making of this patient, discussed the same with the dictator, and agree with the dictators assessment and plan as written, documented as a scribe. Based on total visit time, I have performed more than 50% of this visit. Objective - Vital Signs Vital signs: Vital Signs Temp 98.0 F 05/22/24 08:00 Pulse 75 05/22/24 14:00 Resp 18 05/22/24 14:00 BP 117/66 05/22/24 12:00 Pulse Ox 94 L 05/22/24 12:00 FiO2 Intake & Output 05/21/24 05/22/24 05/22/24 18:59 06:59 18:59 Intake Total 118 286 Output Total 500 Balance -382 286 Weight 120.5 kg Intake: Intake, IV Titration 50 Amount cefTRIAXone 2 gm In 50 Sodium Chloride 0.9% 50 ml @ 100 mls/hr IVPB Q24HR [facility] Rx#:[id number] Oral 118 236 Output: Urine 500 Other: Voiding Method Toilet Toilet Toilet Urinal Urinal Urinal # Voids 2 - Labs CBC & Chem 7: 05/22/24 09:02 05/22/24 09:02 Labs: Abnormal Lab Results - Last 24 Hours (Table) 05/22/24 05/22/24 Range/Units 09:02 09:02 WBC 14.3 H (3.8-10.6) k/uL Hgb 12.8 L (13.0-17.5) gm/dL MCHC 30.7 L (31.0-37.0) g/dL Neutrophils # 12.9 H (1.3-7.7) k/uL Lymphocytes # 0.8 L (1.0-4.8) k/uL Chloride 109 H (98-107) mmol/L Carbon Dioxide 21 L (22-30) mmol/L BUN 35 H (9-20) mg/dL Glucose 149 H (74-99) mg/dL Albumin 3.3 L (3.5-5.0) g/dL Microbiology - Last 24 Hours (Table) 05/19/24 18:50 Gram Stain - Final Sputum Sputum Culture - Final 05/19/24 14:54 Blood Culture - Preliminary Blood Assessment and Plan Time with Patient: Less than 30
--- NOTE | 2024-05-22 16:48 | P.PN ---
Subjective Progress Note Date: 05/22/24 Principal diagnosis: Reason for follow-up is pneumonia Patient is a 78-year-old male with a past medical history significant for hypertension COPD atrial fibrillation sleep apnea osteoarthritis prostate cancer status post prostatectomy patient presenting to the ER for evaluation of chest tightness and shortness of breath patient did have cardiac cath normal coronaries low EF has been diagnosed with Takotsubo cardiomyopathy he also have a low-grade fever cough with purulent sputum concerning for pneumonia. On today's evaluation that is 05/22/2024,the patient remains to be afebrile, patient is on room air not requiring supplemental oxygen and denies any shortness of breath no chest pain and the patient cough is decreased intensity mostly dry in nature .Patient denies having any nausea or vomiting, no abdominal pain and no diarrhea has been reported. Patient white count is 14.3, creatinine 0.93 urine for Legionella antigen negative sputum culture have been negative so far Objective - Vital Signs Vital signs: Vital Signs Temp 98.0 F 05/22/24 08:00 Pulse 76 05/22/24 16:37 Resp 18 05/22/24 14:00 BP 117/66 05/22/24 12:00 Pulse Ox 94 L 05/22/24 12:00 FiO2 Intake & Output 05/21/24 05/22/24 05/22/24 18:59 06:59 18:59 Intake Total 118 786 Output Total 500 Balance -382 786 Weight 120.5 kg Intake: Intake, IV Titration 50 Amount cefTRIAXone 2 gm In 50 Sodium Chloride 0.9% 50 ml @ 100 mls/hr IVPB Q24HR [facility] Rx#:[id number] Oral 118 736 Output: Urine 500 Other: Voiding Method Toilet Toilet Toilet Urinal Urinal Urinal # Voids 2 # Bowel Movements 1 - Exam GENERAL DESCRIPTION: An elderly male lying in bed in no distress RESPIRATORY SYSTEM: Unlabored breathing , decreased breath sounds at bases HEART: S1 S2 regular rate and rhythm , ABDOMEN: Soft , no tenderness EXTREMITIES: No edema feet - Labs CBC & Chem 7: 05/22/24 09:02 05/22/24 09:02 Labs: Abnormal Lab Results - Last 24 Hours (Table) 05/22/24 05/22/24 Range/Units 09: 09:02 WBC 14.3 H (3.8-10.6) k/uL Hgb 12.8 L (13.0-17.5) gm/dL MCHC 30.7 L (31.0-37.0) g/dL Neutrophils # 12.9 H (1.3-7.7) k/uL Lymphocytes # 0.8 L (1.0-4.8) k/uL Chloride 109 H (98-107) mmol/L Carbon Dioxide 21 L (22-30) mmol/L BUN 35 H (9-20) mg/dL Glucose 149 H (74-99) mg/dL Albumin 3.3 L (3.5-5.0) g/dL Microbiology - Last 24 Hours (Table) 05/19/24 18:50 Gram Stain - Final Sputum Sputum Culture - Final 05/19/24 14:54 Blood Culture - Preliminary Blood Assessment and Plan (1) Pneumonia Current Visit: Yes Status: Acute Code(s): J18.9 - PNEUMONIA, UNSPECIFIED ORGANISM SNOMED Code(s): 837511739 (2) Fever Current Visit: No Status: Acute Code(s): R50.9 - FEVER, UNSPECIFIED SNOMED Code(s): 950559768 Plan: 1patient presented to hospital with chest tightness and this patient who also have a cough and bring up some purulent sputum did have a low-grade fever underlying pneumonia not entirely excluded in this patient has been diagnosed with Takotsubo cardiomyopathy by cardiology s/p cardiac cath with elevated n ormal coronaries. 2patient did have elevated CRP and procalcitonin and sputum culture so far negative 3-patient did have some clinical improvement we will continue with Rocephin 2 g daily finishing therapy with oral Ceftin multiple question concern answered Dictation was produced using [employer] software. please excuse any grammatical, word or spelling errors. Time with Patient: Less than 30
[2024-05-22] MEDS: LACTULOSE 20 GM/30 ML CUP PO ONE (17:10)
[2024-05-22] MEDS: methylPREDNISolone SOD SUCCI 125 MG/2 ML VIAL IV SCH (17:11)
[2024-05-23] MEDS: polyethylene glycoL 3350 17 GM POWD.PACK PO SCH (08:45)
[2024-05-23] MEDS: methylPREDNISolone 4 MG TAB PO SCH (08:46)
[2024-05-23 11:00] VITALS: RESP 16; TEMP 97.6
--- NOTE | 2024-05-23 11:15 | P.PN ---
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 In the ER, patient was noted to be diaphoretic, was also noted to be slightly short of br eath, EKG question the possibility of ST elevation myocardial infarction cardiology was notified, patient underwent cardiac catheterization and he was found to have no evidence of significant coronary artery disease, but he was found to have severe LV dysfunction, elevated left-sided filling pressures, also found to have apical hypokinesis consistent with Takotsubo's cardiomyopathy. Patient was placed on norepinephrine for low blood pressure at 0.05 mcg/kg/min, transferred to the ICU, and I was asked to see him in consultation. In spite of norepinephrine, patient was noted to be hypotensive and diaphoretic, went ahead and established a right femoral triple-lumen catheter, and his norepinephrine will be titrated accordingly to maintain mean arterial pressure of 65 or higher chest x-ray on admission showed evidence of mild interstitial edema and pulmonary vascular congestion. BNP level was 12,900. Patient was evaluated today on 05/20/2024, patient is feeling better today, he is hemodynamically stable, off norepinephrine, however he has persistent cough and wheezing. Chest x-ray showed no evidence of congestive heart failure and no evidence of pneumonia but on physical examination patient sounded quite congested. Hence I will give the patient a trial of gentle diuresis along with bronchodilators and steroids/Decadron. Patient will be placed on bronchodilators, he had no previous history of asthma or COPD, patient never smoked WBC count is 6 hemoglobin is 10.9. Basic metabolic profile is normal renal profile is normal with a creatinine of 0.92 Patient was evaluated today on 05/21/2024 continues to have intermittent cough and wheezing, he is hemodynamically stable, not requiring any norepinephrine. Chest x-ray showed no evidence of infiltrates, on cardiac catheterization patient was found to have elevated left ventricular end-diastolic pressures consistent with mild congestive heart failure. Clearly appreciated on the chest x-ray, but the BNP level is elevated. Did receive Lasix yesterday, and he will receive Lasix today. In the meantime I am recommending bronchodilators for his bronchospasm. Patient never smoked, he did have previous exposure to bleach inhalation, and I believe the patient may have developed reactive airway dysfunction syndrome. I will continue bronchodilators, and today I am recommending Solu-Medrol 60 mg IV push every 6 hours. WBC count is 6 hemoglobin 10.9 electrolytes are normal renal profile is normal, BNP level on admission was 12,900, procalcitonin level is slightly elevated unclear significance for elevated procalcitonin level since his chest x-ray showed no evidence of pneumonia Patient was seen today on 05/22/2024, patient is now on the cardiac floor, doing well, asymptomatic, not in any distress, his pulmonary symptoms of cough wheezing and shortness of breath have completely resolved. WBC count today is 14.3 hemoglobin 12.8, his electrolytes are normal renal profile is normal and on physical examination he sounded significantly improved today. No wheezing was noted today Patient was seen today on 05/23/2024, patient is doing great, relatively asymptomatic, no cough no wheezing no shortness of breath no chest pain no fever no chills no hemoptysis. According to the patient he was already cleared by other consultants to be discharged home, and based on my findings today, I will clear the patient to go home and follow-up on outpatient basis Objective - Vital Signs Vital signs: Vital Signs Temp 97.6 F 05/23/24 08:00 Pulse 80 05/23/24 08:34 Resp 16 05/23/24 08:00 BP 121/72 05/23/24 08:00 Pulse Ox 97 05/23/24 08:26 FiO2 Intake & Output 05/22/24 05/23/24 05/23/24 18:59 06:59 18:59 Intake Total 904 290 Balance 904 290 Weight 121.4 kg Intake: Intake, IV Titration 50 50 Amount cefTRIAXone 2 gm In 50 50 Sodium Chloride 0.9% 50 ml @ 100 mls/hr IVPB Q24HR [facility] Rx#:[id number] Oral 854 [id number] Other: Voiding Method Toilet Toilet Toilet Urinal Urinal Urinal # Voids 2 # Bowel Movements 1 - Exam General: Reveals 78-year-old white male pleasant in no distress Skin: No rashes Eye: Pupils are equal, round and reactive to light, extra-ocular movements are intact; there is normal conjunctiva bilaterally. Ears, nose, mouth and throat: There are moist mucous membranes and no oral les ions. Neck: The neck is supple, there is no tenderness or JVD. Cardiovascular: There is a regular rate and rhythm. No murmur, rub or gallop is appreciated. Respiratory: Clear throughout no crackles rhonchi or wheeze Gastrointestinal: Soft, non-distended, non-tender abdomen without masses or o rganomegaly noted. There is no rebound or guarding present. Bowel sounds are unremarkable. Back: There is no tenderness to palpation in the midline. There is no obvious deformity. Musculoskeletal: Normal ROM, no tenderness, There is no pedal edema. There is no calf tenderness or swelling. No cords were appreciated. Neurological: CN II-XII intact, Cranial nerves III through XII are intact. Th ere are no obvious motor or sensory deficits. Coordination appears grossly intact. Speech is normal. Psychiatric: Cooperative, appropriate mood & affect, normal judgment. - Labs CBC & Chem 7: 05/22/24 09:02 05/22/24 09:02 Labs: Microbiology - Last 24 Hours (Table) 05/19/24 14:54 Blood Culture - Preliminary Blood 05/19/24 18:50 Gram Stain - Final Sputum Sputum Culture - Final Assessment and Plan Assessment: Impression: Nonischemic cardiomyopathy/Takotsubo syndrome significantly improved based on a repeat echocardiogram Hypotension secondary to above, resolved Mild congestive heart failure secondary to severe LV dysfunction patient had elevated left ventricular end-diastolic pressures noted on the cardiac catheterization History of chronic atrial fibrillation Relatively normal coronary arteries other than the mid LAD stenosis 10 to 20% noted on cardiac catheterization Benign essential hypertension History of hypothyroidism Acute bronchospasm, possible reactive airway dysfunction syndrome, significantly improved with steroids and bronchodilator Recommendation: Continue present supportive care measures Change Solu-Medrol to Medrol Dosepak Continue bronchodilators including DuoNeb and Symbicort, to be continued on outpatient basis Will clear the patient for discharge if cleared by other consultants Diet and DVT prophylaxis Will need outpatient follow-up Time with Patient: Less than 30
[2024-05-23 15:11] VITALS: BP 133/62; PULSE 73
--- NOTE | 2024-05-23 15:17 | P.DS ---
Providers Date of admission: 05/19/24 12:08 Attending physician: Tremayne Beasley Consults: 05/19/24 14:31 Consult Physician Routine Consulting Provider: Jese Rod Consult Reason/Comments: sepsis?? Do you want consulting provider notified?: Yes 05/19/24 14:33 Consult Physician Routine Consulting Provider: Camden Henderson Consult Reason/Comments: icu mx, sepsis?? Do you want consulting provider notified?: Yes Primary care physician: Enoch Galarza Hospital Course: Final Diagnosis Inferior STEMI status post cardiac cath showing mild nonobstructive CAD Stress cardiomyopathy with low ejection fraction 40 to 45% Hypertension currently improved thought secondary to cardiac disease and infection Possible community-acquired pneumonia, bacterial procalcitonin 1.37 Paroxysmal atrial fibrillation Obesity with BMI of 33.8 Discharge Disposition Patient is eval today in follow-up in the medical floor. He has been cleared by all consultations including cardiology pulmonary and infectious disease As sociates. Will continue on a course of oral antibiotics with Ceftin for the next 5 days. Patient will also complete a Medrol Dosepak. Patient has been discharged on Dulera inhaler twice a day. Patient has been taken off of his sotalol and losartan as well as metoprolol. He has been discharged on amiodarone 2 mg twice a day and Toprol XL 50 mg daily. Patient will continue on Xarelto at at bedtime as well as a baby aspirin daily. Will need to see his PCP Dr. Galarza in 1 to 2 days. Hospital Course This is a pleasant 78 years old male with history of paroxysmal atrial fibrillation, hypertension. Patient presents on the May 19 for worsening shortness of breath of 3 days duration and had low-grade temperature of 100.6. However on admission he has elevated troponin he underwent cardiac cath by distribution coordinator which are with mild nonobstructive coronary artery disease but evidence of stress cardiomyopathy with low ejection fraction like 40 to 45% causing some hypotension and also by possible infection and pneumonia. Had elevated procalcitonin level of 1.37. Was started on IV ceftriaxone with clinical suspicion for pneumonia. He did require levophed and ICU care on admission. Has since been moved out of the ICU to the medical floor. Patient was given IV steroids for significant wheezing. Sputum culture was negative. Urine Legionella is negative and labs including kidney functions have improved today. Vital signs are stable and patient is afebrile and maintaining oxygen saturations above 95% on room air. Patient reports he follows with Dr. Galarza. 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 Patient reports to having wheezing and reports he is not a smoker although when he was a child him and his brother had made a concoction with bleach and ammonia and had been inhaling it and could have contributed to some lung damage. Patient does use inhalers as needed. Patient also was evaluated by Dr. Murrell out of [facility] and was diagnosed with sleep apnea a while back although lost some weight and has not been using his CPAP in the outpatient setting. X-ray is not indicative of a pneumonia. Patient was given a dose of IV Lasix. Clinically he has improved he is not short of breath. He is not having any chest discomfort. He has been up ambulating without difficulty. He will be discharged home. Please see medication reconciliation for a list of current medications. Thank you for allowing us to participate in the care of this patient. The impression and plan of care has been dictated by Dorene Galicia, Nurse Practitioner as directed. Dr. Fermín MD I have performed a history and physical examination and medical decision making of this patient, discussed the same with the dictator, and agree with the dictators assessment and plan as written, documented as a scribe. Based on total visit time, I have performed more than 50% of this visit. Patient Condition at Discharge: Fair Plan - Discharge Summary New Discharge Prescriptions: New Aspirin 81 mg PO DAILY #30 tab Amiodarone [Cordarone] 200 mg PO BID #60 tab Pantoprazole [Protonix] 40 mg PO AC-BRKFST #30 tab Metoprolol Succinate (ER) [Toprol XL] 50 mg PO DAILY #30 tab cefUROXime axetiL [Ceftin] 500 mg PO BID 5 Days #10 tab Mometasone/Formoterol [Dulera 200 Mcg-5 Mcg Inhaler] 1 puff INHALATION BID #13 gm methylPREDNISolone Dose Pack [Medrol Dose Pack] 4 mg PO DIRECTED #21 tab Continue Rivaroxaban [Xarelto] 20 mg PO HS Pregabalin [Lyrica] 150 mg PO TID buPROPion HCL [Wellbutrin XL] 300 mg PO DAILY ALPRAZolam [Xanax] 1 mg PO TID PRN PRN Reason: Anxiety oxyCODONE HCL [oxyCODONE HCL (IR)] 15 mg PO QID PRN PRN Reason: Pain Mirabegron [Myrbetriq] 25 mg PO DAILY Atorvastatin [Lipitor] 20 mg PO HS Albuterol Sulfate [Proair Hfa] 2 puff INHALATION RT-Q4H PRN PRN Reason: Shortness Of Breath Metoprolol Succinate (ER) [Toprol XL] 50 mg PO DAILY ARIPiprazole [Abilify] 2 mg PO BID Levothyroxine Sodium [Synthroid] 75 mcg PO DAILY Discontinued Losartan Potassium 100 mg PO DAILY Sotalol [Betapace] 120 mg PO BID Metoprolol Succinate [Metoprolol Succinate ER] 25 mg PO HS Discharge Medication List Albuterol Sulfate [Proair Hfa] 2 puff INHALATION RT-Q4H PRN 03/01/22 [History] Atorvastatin [Lipitor] 20 mg PO HS 03/01/22 [History] Pregabalin [Lyrica] 150 mg PO TID 03/01/22 [History] Rivaroxaban [Xarelto] 20 mg PO HS 03/01/22 [History] buPROPion HCL [Wellbutrin XL] 300 mg PO DAILY 03/01/22 [History] ARIPiprazole [Abilify] 2 mg PO BID 11/27/23 [History] Metoprolol Succinate (ER) [Toprol XL] 50 mg PO DAILY 11/27/23 [History] Levothyroxine Sodium [Synthroid] 75 mcg PO DAILY 04/27/24 [History] ALPRAZolam [Xanax] 1 mg PO TID PRN 05/19/24 [History] Mirabegron [Myrbetriq] 25 mg PO DAILY 05/19/24 [History] oxyCODONE HCL [oxyCODONE HCL (IR)] 15 mg PO QID PRN 05/19/24 [History] Amiodarone [Cordarone] 200 mg PO BID #60 tab 05/23/24 [Rx] Aspirin 81 mg PO DAILY #30 tab 05/23/24 [Rx] Metoprolol Succinate (ER) [Toprol XL] 50 mg PO DAILY #30 tab 05/23/24 [Rx] Mometasone/Formoterol [Dulera 200 Mcg-5 Mcg Inhaler] 1 puff INHALATION BID #13 gm 05/23/24 [Rx] Pantoprazole [Protonix] 40 mg PO AC-BRKFST #30 tab 05/23/24 [Rx] cefUROXime axetiL [Ceftin] 500 mg PO BID 5 Days #10 tab 05/23/24 [Rx] methylPREDNISolone Dose Pack [Medrol Dose Pack] 4 mg PO DIRECTED #21 tab 05/23/24 [Rx] Follow up Appointment(s)/Referral(s): Camden Henderson MD [STAFF PHYSICIAN] - 1 Week (Pulmonology ) Wagner Cisneros MD [Medical Doctor] - 1 Week (Cardiology ) Enoch Galarza MD [Primary Care Provider] - 1-2 days Patient Instructions/Handouts: *Surgery [facility] - After Heart Catheterization - [employer] Instructions, Heart Attack (DC) Discharge Disposition: HOME SELF-CARE
--- NOTE | 2024-05-23 15:22 | P.PN ---
Subjective Progress Note Date: 05/23/24 Principal diagnosis: Reason for follow-up is pneumonia Patient is a 78-year-old male with a past medical history significant for hypertension COPD atrial fibrillation sleep apnea osteoarthritis prostate cancer status post prostatectomy patient presenting to the ER for evaluation of chest tightness and shortness of breath patient did have cardiac cath normal coronaries low EF has been diagnosed with Takotsubo cardiomyopathy he also have a low-grade fever cough with purulent sputum concerning for pneumonia. On today's evaluation that is 05/23/2024, the patient continues to be afebrile, the patient is on room air and breathing comfortably, the Pt denies having any chest pain, decreased intensity mostly dry in nature, the patient denies having any abdominal pain no vomiting or any diarrhea has been reported by the nursing staff, mention feeling better. No new labs were obtained today blood and sputum culture has been negative Objective - Vital Signs Vital signs: Vital Signs Temp 97.6 F 05/23/24 08:00 Pulse 84 05/23/24 11:50 Resp 16 05/23/24 08:00 BP 121/72 05/23/24 08:00 Pulse Ox 97 05/23/24 08:26 FiO2 Intake & Output 05/22/24 05/23/24 05/23/24 18:59 06:59 18:59 Intake Total 904 290 Balance 904 290 Weight 121.4 kg Intake: Intake, IV Titration 50 50 Amount cefTRIAXone 2 gm In 50 50 Sodium Chloride 0.9% 50 ml @ 100 mls/hr IVPB Q24HR [facility] Rx#:[id number] Oral 854 [id number] Other: Voiding Method Toilet Toilet Toilet Urinal Urinal Urinal # Voids 2 # Bowel Movements 1 - Exam GENERAL DESCRIPTION: An elderly male lying in bed in no distress RESPIRATORY SYSTEM: Unlabored breathing , decreased breath sounds at bases HEART: S1 S2 regular rate and rhythm , ABDOMEN: Soft , no tenderness EXTREMITIES: No edema feet - Labs CBC & Chem 7: 05/22/24 09:02 05/22/24 09:02 Labs: Microbiology - Last 24 Hours (Table) 05/19/24 14:54 Blood Culture - Preliminary Blood 05/19/24 18:50 Gram Stain - Final Sputum Sputum Culture - Final Assessment and Plan (1) Pneumonia Status: Acute Code(s): J18.9 - PNEUMONIA, UNSPECIFIED ORGANISM SNOMED Code(s): 084540554 (2) Fever Status: Acute Code(s): R50.9 - FEVER, UNSPECIFIED SNOMED Code(s): 666939442 Plan: 1patient presented to hospital with chest tightness and this patient who also have a cough and bring up some purulent sputum did have a low-grade fever underlying pneumonia not entirely excluded in this patient has been diagnosed with Takotsubo cardiomyopathy by cardiology s/p cardiac cath with elevated normal coronaries. 2patient did have elevated CRP and procalcitonin and sputum culture so far negative 3-patient did have some clinical improvement we will finish treatment with oral Ceftin continue supportive care question concern answered Dictation was produced using [employer] dictation software. please excuse any grammatical, word or spelling errors. Time with Patient: Less than 30
--- NOTE | 2024-06-15 19:55 | CDI ---
Documentation Clarification Form Date: 06/15/2024 07:43:38 PM From: Ashwini Humphries Phone: Admit Date: 05/19/2024 12:08:00 PM Patient Name: Carlos Manuel Bustos Visit Number: [id number] Discharge Date: 05/23/2024 03:18:00 PM ATTENTION: The Clinical Documentation Specialists (CDI) and [facility] Coding Staff appreciate your assistance in clarifying documentation. Please respond to the clarification below the line at the bottom and electronically sign. The CDI & [facility] Coding staff will review the response and follow-up if needed. Please note: Queries are made part of the Legal Health Record. If you have any questions, please contact the author of this message via ITS. Doctor/Provider: Camden Henderson Varying types of cardiomyopathy have been documentation within the chart Notes. Takotsubo'scardiomyopathy Heart Cath 05/19 Nonischemiccardiomyopathy OP Note 05/19 Stresscardiomyopathy Consult 05/19 Ischemiccardiomyopathy Progress Note 05/20 Additional clarification regarding the type of cardiomyopathy is requested. History/Risk Factors: 78yo M, CM/Takotsubo syndrome, hypotension, CHF, chronic PAF, CAD, inferior STEMI, HTN, hypothyroidism, acute bronchospasm, Stress CM w low EF 40 to 45%, PNA, obesity Clinical indicators: Echo Results: Preserved LV size and function without wall motion abnormality. LVEF >50-55%. Chest x ray: Cardiomediastinal silhouette is unremarkable. Treatment: Patient is eval today infollow-upin the medical floor. He has been cleared by all consultations including cardiology [facility]. Will continue on a course of oral antibiotics with Ceftin for the next 5 days. Pt will also complete a Medrol Dosepak. Pt has been discharged on Dulera inhaler twice a day. Pt has been taken off of his sotalol and losartan as well as metoprolol. He has been DC on amiodarone 2 mg twice a day and Toprol XL 50 mg daily. Patient will continue on Xarelto at bedtime as well as a baby aspirin daily. Will need to see his PCP Dr. Macias 1 to 2 days. Please clarify the type of cardiomyopathy, if known: [x ] Takotsubo'scardiomyopathy [ ] Nonischemiccardiomyopathy [ ] Ischemic [ ] Secondary, please indicate underlying cause if known [ ] Other, please specify [ ] Unable to determine (Template Last Revised: December 2020) MTDD
--- NOTE | 2024-06-15 20:01 | CDI ---
Documentation Clarification Form Date: 06/15/2024 07:43:38 PM From: Ashwini Humphries Phone: Admit Date: 05/19/2024 12:08:00 PM Patient Name: Carlos Manuel Bustos Visit Number: [id number] Discharge Date: 05/23/2024 03:18:00 PM ATTENTION: The Clinical Documentation Specialists (CDI) and [facility] Coding Staff appreciate your assistance in clarifying documentation. Please respond to the clarification below the line at the bottom and electronically sign. The CDI & [facility] Coding staff will review the response and follow-up if needed. Please note: Queries are made part of the Legal Health Record. If you have any questions, please contact the author of this message via ITS. Doctor/Provider: Camden Henderson Your patient has the documented diagnosis of unspecified CHF throughout the Progress Notes. Additional information regarding the type of CHF is requested. History/Risk Factors: 78yo M, CM, hypotension, CHF, chronic PAF, CAD, inferior STEMI, HTN, hypothyroidism, acute bronchospasm, PNA, obesity Clinical Indicators: VS/Pulse OX: 95 BNP: [id number] Echo Results: Preserved LV size and function without wall motion abnormality. LVEF >50-55%. Chest x ray: Cardiomediastinal silhouette is unremarkable. Treatment: Continue present supportive care measures. Change Solu-Medrol to Medrol Dosepak. Continue bronchodilators including DuoNeb and Symbicort, to be continued on OP basis. Will clear the patient for discharge if cleared by other consultants. Diet andDVTprophylaxis. Will need OPfollow-up. In your professional opinion, can you please clarify the type of CHF if known? [ ] Chronic Systolic Heart Failure (reduced EF) [ ] Chronic Diastolic Heart Failure (preserved EF) [ ] Chronic Systolic & Diastolic Heart Failure [ ] Other, please specify [ x] Unable to determine (Template Last Revised: November 2020) MTDD
== END 2024-05-23 15:18 | disposition home or self-care (01) | DRG 281 ==
LOC: EC 11:50 → 3SCARD 12:08 → 2SICU 12:39 → 3SCARD 05-21 14:24
PROVIDERS: ADMIT Hospitalist; ATTEND Hospitalist
PROC: 4A023N7 Measurement of Cardiac Sampling and Pressure, Left Heart, Percutaneous Approach (ICD-10-PCS; 2024-05-19)
PROC: B2111ZZ Fluoroscopy of Multiple Coronary Arteries using Low Osmolar Contrast (ICD-10-PCS; 2024-05-19)
PROC: B2151ZZ Fluoroscopy of Left Heart using Low Osmolar Contrast (ICD-10-PCS; 2024-05-19)
PROC: 3E043XZ Introduction of Vasopressor into Central Vein, Percutaneous Approach (ICD-10-PCS; 2024-05-19)
PROC: 02HV33Z Insertion of Infusion Device into Superior Vena Cava, Percutaneous Approach (ICD-10-PCS; principal; 2024-05-19 11:58)
DX: I21.19 ST elevation (STEMI) myocardial infarction involving other coronary artery of inferior wall (principal); J44.0 Chronic obstructive pulmonary disease with (acute) lower respiratory infection; I11.0 Hypertensive heart disease with heart failure; I50.9 Heart failure, unspecified; I48.0 Paroxysmal atrial fibrillation; J68.3 Other acute and subacute respiratory conditions due to chemicals, gases, fumes and vapors; I95.9 Hypotension, unspecified; I45.10 Unspecified right bundle-branch block; E03.9 Hypothyroidism, unspecified; E66.9 Obesity, unspecified; Z68.33 Body mass index [BMI] 33.0-33.9, adult; I25.10 Atherosclerotic heart disease of native coronary artery without angina pectoris; G47.33 Obstructive sleep apnea (adult) (pediatric); M19.90 Unspecified osteoarthritis, unspecified site; J98.01 Acute bronchospasm; Z77.098 Contact with and (suspected) exposure to other hazardous, chiefly nonmedicinal, chemicals; Z96.653 Presence of artificial knee joint, bilateral; Z96.643 Presence of artificial hip joint, bilateral; Z79.01 Long term (current) use of anticoagulants; Z79.899 Other long term (current) drug therapy; Z79.890 Hormone replacement therapy; Z82.49 Family history of ischemic heart disease and other diseases of the circulatory system; Z85.46 Personal history of malignant neoplasm of prostate; Z11.52 Encounter for screening for COVID-19
CPT/HCPCS: 36415; 36600; 71045; 80048; 80053; 81001; 82805; 83605; 83735; 83880; 84145; 84484; 85025; 85379; 85610; 85730; 86140; 87040; 87070; 87205; 87449; 87636; 93005; 93308; 93458; 94640; 94760; 96374; 99285

== ENCOUNTER 2024-06-04 22:52 | Observation (INO) | payer MEDICARE ==
[~2024-06-04 22:52] MED LIST: DIPH,PERTUS(ACELL)TETVAC-LF 0.5 ML VIAL IM ONE; HYDROmorphone 0.5 MG/0.5 ML SYRINGE ONE; HYDROmorphone 1 MG/ML 1 ML SYRINGE ONE; LIDOCAINE 1%-EPI 1:100,000 20 ML VIAL ONE
[2024-06-05] MEDS ORDERED: HYDROmorphone 1 MG/ML 1 ML SYRINGE ONE ×3 (02:27→18:59)
[2024-06-05] MEDS ORDERED: PREGABALIN 100 MG CAP ONE (14:03)
[2024-06-05] MEDS ORDERED: DULoxetine HCL 60 MG CAPSULE.DR PO ONE ×2 (14:03→21:19)
[2024-06-05] MEDS ORDERED: METOPROLOL SUCCINATE (ER) 50 MG TAB.ER.24H PO ONE (14:04)
[2024-06-05] MEDS ORDERED: PREGABALIN 50 MG CAP ONE (14:04)
[2024-06-05] MEDS ORDERED: LEVOTHYROXINE 50 MCG TAB ONE (14:04)
[2024-06-05] MEDS ORDERED: lamoTRIgine 100 MG TAB ONE ×2 (14:04→21:19)
[2024-06-05] MEDS ORDERED: ALPRAZolam 1 MG TAB ONE (18:21)
[2024-06-05] MEDS ORDERED: ATORVASTATIN 20 MG TAB ONE (21:18)
[2024-06-05] MEDS ORDERED: PREGABALIN 75 MG CAP ONE (21:19)
[2024-06-05] MEDS ORDERED: AMIODARONE 200 MG TAB ONE (23:59)
[2024-06-06] MEDS ORDERED: LEVOTHYROXINE 50 MCG TAB ONE ×2 (04:32→08:36)
[2024-06-06] MEDS ORDERED: METOPROLOL SUCCINATE (ER) 50 MG TAB.ER.24H PO ONE (08:36)
[2024-06-06] MEDS ORDERED: DULoxetine HCL 60 MG CAPSULE.DR PO ONE (08:36)
[2024-06-06] MEDS ORDERED: lamoTRIgine 100 MG TAB ONE (08:37)
[2024-06-06] MEDS ORDERED: PREGABALIN 100 MG CAP ONE (08:38)
[2024-06-06] MEDS ORDERED: PREGABALIN 50 MG CAP ONE (08:39)
[2024-06-06] MEDS ORDERED: HYDROmorphone 1 MG/ML 1 ML SYRINGE ONE (11:28)
[2024-06-06] MEDS ORDERED: ALBUTEROL HFA INHALER INHALATION ONE (12:00)
[2024-06-06] MEDS ORDERED: buPROPion XL 300 MG TAB.ER.24H PO ONE (16:00)
[2024-06-06] MEDS ORDERED: AMIODARONE 200 MG TAB ONE (16:00)
--- NOTE | 2024-06-28 15:42 | CT ---
Patient Jared Bustos ID [id number] Order # EXAMINATION TYPE: CT chest w con DATE OF EXAM: 06/06/2024 COMPARISON: No pertinent prior comparison HISTORY: Pneumonia, rib fracture CT DLP: 589.20 mGycm, Automated exposure control for dose reduction was used. CONTRAST: Performed injected with 100 mL of Isovue 300. TECHNIQUE: Axial images were obtained at 5 mm thick sections. Reconstructed images are reviewed on [employer] computer in the coronal plane. FINDINGS: Portion of the thyroid visualized is normal. No suspicious lung nodules or focal infiltrates are present. No pneumothorax is evident. Reported rib fracture is not identified. No enlarged mediastinal or hilar adenopathy is evident. The ascending aorta diameter at the level o f the main pulmonary artery is 3.4 cm. The main pulmonary artery diameter at the bifurcation is 3.[address] sections are obtained through the upper abdomen. Hepatic cysts on the posterior inferior r ight lobe liver. Additional hepatic cysts are within the left lobe liver. IMPRESSION: 1. No acute pulmonary process. 2. No displaced rib fractures evident. No pneumothorax evident. Follow-up can be performed as clinica lly indicated.
--- NOTE | 2024-07-01 10:30 | CT ---
Patient Jared Bustos ID [id number] Order # EXAMINATION TYPE: CT brain [place] DATE OF EXAM: 06/04/2024 COMPARISON: No comparison available on downtime PACS. HISTORY: Fall head injury CT DLP: 1785.6 mGycm, Automated exposure control for dose reduction was used. CONTRAST: Patient injected with 0 mL of Isovue 300. CT of the brain is performed utilizing 3 mm thick sections through the posterior fossa and 3 mm thick sections through the remaining calvarium. Study is performed within 24 hours of arrival to the hospital. No abnormal hyperdensity is present to suggest an acute intracranial hemorrhage. No mass lesion is evident. No acute infarcts are evident. Some periventricular white matter hypodensity is present, likely on t he basis of chronic white matter ischemic changes Ventricles and sulci are prominent for the patient age. Air-fluid levels are within the maxillary sinuses. Frontal sinuses are aplastic. Mastoid air cells an d sphenoid sinuses and ethmoid air cells are clear There is soft tissue swelling over the right parietal occipital region. No underlying fracture is marilee dent. IMPRESSIONS: 1. No acute intracranial process. Follow-up MRI can be performed as clinically indicated. 2. Soft tissue swelling right parietal occipital region. 3. Air-fluid levels within the maxillary sinuses. Consider acute sinusitis. CT cervical spine. COMPARISON: None CT of the cervical spine is performed in the axial plane at 2 mm thick sections. Reconstructed image s in the coronal, and sagittal plane are reviewed on the computer. No acute fractures are evident. Vertebral body alignment is normal. There is loss of disc height throughout the cervical spine. Vertebral body heights are preserved. There is some endplate spurring most notably C6-7 with mild anterior thecal sac compression. Multilevel severe foraminal stenosis from uncovertebral joint hypertrophy is within foramen bilateral ly IMPRESSION: 1. No acute osseous abnormality cervical spine. 2. Advanced degenerative disc changes throughout the cervical spine. 3. Severe multilevel foraminal narrowing present bilaterally due to uncovertebral joint hypertrophy
--- NOTE | 2024-07-01 10:30 | CT ---
Site ID [facility] Jared Sandra ID [id number] Order # Procedure A/P WO LRG EXAMINATION TYPE: CT abdomen pelvis wo con CT DLP: 1647.2 mGycm, Automated exposure control for dose reduction was used. DATE OF EXAM: 06/04/2024 9:59 AM COMPARISON: THIS EXAM WAS READ DURING PACS DOWNTIME, NO PRIORS AVAILABLE. CLINICAL INDICATION: FALL, HEAD INJURY, LEFT FLANK PAIN, DLP: 1647.2 TECHNIQUE: Axial CT abdomen pelvis wo con;Sagittal and coronal reformats were created on a separate workstation. Contrast used: mL of , (none if empty) Oral contrast used: (none if empty) FINDINGS: LOWER CHEST: Heart is mildly enlarged for size. ABDOMEN LIVER: Unremarkable GALLBLADDER AND BILE DUCTS: Potential Gallstone near the gallbladder neck. PANCREAS: Unremarkable. SPLEEN: Unremarkable. ADRENAL GLANDS: Unremarkable. KIDNEYS AND URETERS: No Obstructive uropathy. Nonobstructing left renal calculus measuring 4 mm. No r ight renal calculi. PELVIS BLADDER: Unremarkable REPRODUCTIVE: Unremarkable. ABDOMEN & PELVIS STOMACH AND BOWEL: No evidence of bowel obstruction. PERITONEUM/RETROPERITONEUM: No evidence of pneumoperitoneum or free fluid. VASCULATURE: No evidence of aortic aneurysm. MUSCULOSKELETAL: No acute osseous abnormalities, bilateral hip arthroplasties appear intact. Remote a ppearing left rib fractures. LYMPH NODES: No gross evidence for lymphadenopathy. SOFT TISSUE/ABDOMINAL WALL: Bilateral fat-containing inguinal hernias. IMPRESSION: 1. No evidence for acute abdominal process. 2. Deformity to multiple left lower ribs correlate for acute fracture. 3. No obstructive uropathy. Nonobstructing left renal calculus. 4. Potential Gallstone near the gallbladder neck.
--- NOTE | 2024-07-07 06:22 | XR ---
Patient Jared Bustos ID [id number] Order # EXAMINATION TYPE: XR chest 2V DATE OF EXAM: 06/05/2024 COMPARISON: No comparison available on downtime PACS. INDICATION: Recent fall, open heart surgery TECHNIQUE: Frontal and lateral views of the chest are obtained. FINDINGS: The heart size is normal. The pulmonary vasculature is normal. The lungs are clear. IMPRESSION: 1. No acute pulmonary process.
--- NOTE | 2024-07-07 08:34 | XR ---
Site ID [facility] Jared Sandra ID [id number] Order # Procedure XR PORTABLE CXR EXAMINATION TYPE: XR chest 1V DATE OF EXAM: 06/04/2024 11:17 AM CLINICAL INDICATION: POSSIBLE RIB FX AFTER TRAUMA COMPARISON: THIS EXAM WAS READ DURING PACS DOWNTIME, NO PRIORS AVAILABLE. TECHNIQUE: XR chest 1V Frontal view of the chest. FINDINGS: Lungs/Pleura: There is no evidence of pleural effusion, focal consolidation, or pneumothorax. Pulmonary vascularity: Unremarkable. Heart/mediastinum: Cardiomediastinal silhouette is unremarkable. Musculoskeletal: No acute osseous pathology. IMPRESSION: Poor evaluation of the lower ribs. This is due to overlapping soft tissues. No acute cardiopulmonary disease/process.
== END 2024-06-06 16:31 | disposition home or self-care (01) ==
LOC: 4SSUR 22:52
PROVIDERS: ADMIT Surgery Plastic and Reconstructive Surgery; ATTEND Surgery Plastic and Reconstructive Surgery
DX: S22.32XA Fracture of one rib, left side, initial encounter for closed fracture (principal); S01.01XA Laceration without foreign body of scalp, initial encounter; I11.9 Hypertensive heart disease without heart failure; S06.0X0A Concussion without loss of consciousness, initial encounter; J44.9 Chronic obstructive pulmonary disease, unspecified; I25.10 Atherosclerotic heart disease of native coronary artery without angina pectoris; R25.1 Tremor, unspecified; G62.9 Polyneuropathy, unspecified; I48.20 Chronic atrial fibrillation, unspecified; G89.4 Chronic pain syndrome; M54.2 Cervicalgia; E03.9 Hypothyroidism, unspecified; E66.9 Obesity, unspecified; Z68.41 Body mass index [BMI] 40.0-44.9, adult; Z79.01 Long term (current) use of anticoagulants; Z79.82 Long term (current) use of aspirin; Z79.890 Hormone replacement therapy; Z79.899 Other long term (current) drug therapy; Z95.0 Presence of cardiac pacemaker; Z87.891 Personal history of nicotine dependence; W01.10XA Fall on same level from slipping, tripping and stumbling with subsequent striking against unspecified object, initial encounter; Z23 Encounter for immunization
CPT/HCPCS: 12002; 70450; 71045; 71046; 71260; 72125; 74176; 90715; 93005; 94640; 96374; 96376; 99285

== ENCOUNTER 2024-06-14 20:50 | Emergency (ER) | payer MEDICARE ==
[2024-06-14] MEDS: SODIUM CHLORIDE 0.9% 500 ML 500 ML IV STA (22:05)
[2024-06-14] MEDS: METOPROLOL TARTRATE 5 MG/5 ML VIAL IVP STA (22:05)
[2024-06-14] MEDS: ASPIRIN 81 MG PO STA (22:22)
[2024-06-14] MEDS: MAGNESIUM SULFATE-D5W PMX 1 GM in DEXTROSE/WATER 1 100ML.BAG IVPB SCH (22:23)
--- NOTE | 2024-06-14 22:27 | ED ---
Arrhythmia/Palpitations HPI - General Chief Complaint: Arrhythmia/Palpitations Stated Complaint: Heart Fluttering Time Seen by Provider: 06/14/24 21:05 Source: patient Mode of arrival: wheelchair Limitations: no limitations - History of Present Illness Initial Comments: Patient is a 78-year-old man presenting today for palpitations. Patient states that he is currently taking 100 mg of amiodarone, nightly metoprolol and nightly sotalol daily. Yesterday he was out and about and forgot to take his medications. Palpitations began last night, described as "pounding", but no chest pain. He called his doctor's office and they told him to take an extra dose of amiodarone which he took but his symptoms had not improved. Here he endorses chest palpitations/pounding. Denies pain. Denies difficulty in breathing. Endorse lightheadedness earlier. Denies fevers, lower extremity swelling, nausea, vomiting, diarrhea, abdominal pain, black or bloody stools. Is on Xarelto 20 mg. - Related Data Home Medications Medication Instructions Recorded Confirmed Albuterol Sulfate [Proair Hfa] 2 puff INHALATION RT-Q4H PRN 03/01/22 05/19/24 Atorvastatin [Lipitor] 20 mg PO HS 03/01/22 05/19/24 Pregabalin [Lyrica] 150 mg PO TID 03/01/22 05/19/24 Rivaroxaban [Xarelto] 20 mg PO HS 03/01/22 05/19/24 buPROPion HCL [Wellbutrin XL] 300 mg PO DAILY 03/01/22 05/19/24 ARIPiprazole [Abilify] 2 mg PO BID 11/27/23 05/19/24 Metoprolol Succinate (ER) [Toprol 50 mg PO DAILY 11/27/23 05/19/24 XL] Levothyroxine Sodium [Synthroid] 75 mcg PO DAILY 04/27/24 05/19/24 ALPRAZolam [Xanax] 1 mg PO TID PRN 05/19/24 05/19/24 Mirabegron [Myrbetriq] 25 mg PO DAILY 05/19/24 05/19/24 oxyCODONE HCL [oxyCODONE HCL (IR)] 15 mg PO QID PRN 05/19/24 05/19/24 Previous Rx's Medication Instructions Recorded Amiodarone [Cordarone] 200 mg PO BID #60 tab 05/23/24 Aspirin 81 mg PO DAILY #30 tab 05/23/24 Metoprolol Succinate (ER) [Toprol 50 mg PO DAILY #30 tab 05/23/24 XL] Mometasone/Formoterol [Dulera 200 1 puff INHALATION BID #13 gm 05/23/24 Mcg-5 Mcg Inhaler] Pantoprazole [Protonix] 40 mg PO AC-BRKFST #30 tab 05/23/24 cefUROXime axetiL [Ceftin] 500 mg PO BID 5 Days #10 tab 05/23/24 methylPREDNISolone Dose Pack 4 mg PO DIRECTED #21 tab 05/23/24 [Medrol Dose Pack] Allergies Allergy/AdvReac Type Severity Reaction Status Date / Time No Known Allergies Allergy Verified 05/19/24 14:16 Review of Systems ROS Statement: Those systems with pertinent positive or pertinent negative responses have been documented in the HPI. Past Medical History Past Medical History: Atrial Fibrillation, Atrial Flutter, COPD, Hypertension, Osteoarthritis (OA), Sleep Apnea/CPAP/BIPAP Additional Past Medical History / Comment(s): hx of prostate cancer with prostatectomy. Neuropathy, Cardiac cath, does not use c-pap machine anymore. History of Any Multi-Drug Resistant Organisms: None Reported Past Surgical History: Back Surgery, Heart Catheterization, Joint Replacement Additional Past Surgical History / Comment(s): (B) hip replecement, (B)knee replacement, laminectomy x6, prostatectomy, spinal cord decompression Past Anesthesia/Blood Transfusion Reactions: No Reported Reaction Additional Past Anesthesia/Blood Transfusion Reaction / Comment(s): Pt has only received own blood donated prior to surgery. Past Psychological History: Depression Smoking Status: Never smoker Past Alcohol Use History: Occasional Past Drug Use History: None Reported - Past Family History Father Family Medical History: Congestive Heart Failure (CHF), Hypertension, Myocardial Infarction (MA) Additional Family Medical History / Comment(s): Father of a MA at age 89 yrs. Mother Family Medical History: Cancer Additional Family Medical History / Comment(s): Mother had multiple myeloma. She at age 68 yrs. General Exam - General Exam Comments Initial Comments: PE: CONSTITUTIONAL: [no apparent distress, well appearing] SKIN: [warm, dry, no jaundice, hives or petechiae] EYES:[ pupils are equally round, extraocular movements intact without nystagmus, clear conjunctiva, non-icteric sclera] HENT: [normocephalic, atraumatic, moist mucus membranes, oropharynx clear without exudates] NECK: , [Full range of motion, normal appearance] PULMONARY: [clear to auscultation without wheezes, rhonchi, or rales, normal excursion, no accessory muscle use and no stridor] CARDIOVASCULAR:[Irregularly irregular rhythm, mild tachycardia normal S1 and S2. No appreciated murmurs, rubs or gallops. Strong radial pulses with intact distal perfusion. No lower extremity edema] GASTROINTESTINAL: [soft, non-tender, non-distended, no palpable masses, no rebound or guarding. No hepatosplenomegaly] MUSCULOSKELETAL: [Extremities have no gross deformity, no edema, redness, or swelling. ] NEUROLOGIC: [_a/o x 3, GCS 15, normal mentation and speech. Moves all extremities x 4 without motor or sensory deficit] PSYCHIATRIC:[ _normal mood and affect, thought process is clear and linear] Limitations: no limitations Course Vital Signs 06/14/24 06/14/24 06/14/24 20:54 21:13 21:18 Temperature 98.0 F Pulse Rate 110 H 106 H 106 H Pulse Rate [ Policy Value Calculator ] Respiratory 16 16 18 Rate Blood Pressure 176/102 186/106 O2 Sat by Pulse 97 97 Oximetry 06/14/24 06/14/24 06/14/24 21:22 22:29 23:25 Temperature Pulse Rate 75 82 Pulse Rate [ 104 H Policy Value Calculator ] Respiratory 18 18 Rate Blood Pressure 157/98 166/96 O2 Sat by Pulse 98 99 Oximetry 06/15/24 06/15/24 00:50 01:45 Temperature 98.5 F Pulse Rate 86 89 Pulse Rate [ Policy Value Calculator ] Respiratory 16 18 Rate Blood Pressure 135/75 126/96 O2 Sat by Pulse 97 98 Oximetry Medical Decision Making - Medical Decision Making Was pt. sent in by a medical professional or institution (, PA, [employer]ITTING [employer] SHIPPING SUPERVISOR, urgent care, hospital, or group home...) When possible be specific @ -No Did you speak to anyone other than the patient for history (EMS, parent, family, police, friend...)? What history was obtained from this source @ -No Did you review nursing and triage notes (agree or disagree)? Why? @ -Reviewed triage notes, patient presents today for palpitations, mild shortness of breath, began yesterday Were old charts reviewed (outside hosp., previous admission, EMS record, old EKG, old radiological studies, urgent care reports/EKG's, group home records)? Report findings @ -Patient admitted on 05/19/2024 for inferior STEMI s/p cardiac cath showing mild nonobstructive CAD, ejection fraction 40 to 45% Differential Diagnosis (chest pain, altered mental status, abdominal pain women, abdominal pain men, vaginal bleeding, weakness, fever, dyspnea, syncope, headache, dizziness, GI bleed, back pain, seizure, CVA, palpatations, mental health, musculoskeletal)? @ -Differential Palpitations Top considerations include ventricular arrhythmias, atrial arrhythmias, ACS, anemia, thyrotoxicosis, electrolyte imbalance, hypokalemia, pulmonary disease, anxiety, stress.... This is not meant to be an all-inclusive list. EKG interpreted by me (3pts min.). @Sinus tachycardia, rate 110 bpm, UT interval 209 ms, QRS 103 ms, QT/QTc 337/4 2 ms, left axis deviation, no STEMI X-rays interpreted by me (1pt min.). @ -No acute cardiopulmonary process, no cardiomegaly, pulmonary edema, pleural effusions or consolidations CT interpreted by me (1pt min.). @ -None done U/S interpreted by me (1pt. min.). @ -None done What testing was considered but not performed or refused? (CT, X-rays, U/S, labs)? Why? @ -None What meds were considered but not given or refused? Why? @ -None Did you discuss the management of the patient with other professionals (pr ofessionals i.e. , PA, [employer]ITTING [employer] SHIPPING SUPERVISOR, lab, RT, psych nurse, social worker health services, commissary steward, teacher, sanitation officer, case maker)? Give summary @ -No Was smoking cessation discussed for >3mins.? @ -No Was critical care preformed (if so, how long)? @ -No Were there social determinants of health that impacted care today? How? (Homelessness, low income, unemployed, alcoholism, drug addiction, transportation, low edu. Level, literacy, decrease access to med. care, [facility], rehab)? @ -No Was there de-escalation of care discussed even if they declined (Discuss DNR or withdrawal of care, Hospice)? DNR status @ -No What co-morbidities impacted this encounter? (DM, HTN, Smoking, COPD, CAD, Cancer, CVA, ARF, Chemo, Hep., AIDS, mental health diagnosis, sleep apnea, morbid obesity)? @ -History of CAD, COPD Was patient admitted / discharged? Hospital course, mention meds given and route, prescriptions, significant lab abnormalities, going to OR and other pertinent info. @ -Hospital course Patient is a pleasant 78-year-old gentleman past medical history of atrial fibrillation, CAD, COPD, on Xarelto presenting today for palpitations that began after missing his antiarrhythmics yesterday due to a stressful event causing him to leave town unexpectedlty. BP stable on arrival. Mildly tachycardic. EKG does appear to show sinus rhythm however patient appears to be in A-fib on telemetry. He is currently symptomatic with the palpitations continuing, otherwise no additional symptoms. Due to persistent symptoms we will give 1 IV dose 5 mg Lopressor to further control rate as well as IV magnesium. CXR, troponin, e lectrolytes, TSH ordered. Patient agreeable plan of care. On reassessment patient's rate is better controlled, heart rate in the 70s. His symptoms have resolved. Workup remarkable for elevated TSH. Patient does state that he has history of thyroid problems. Elevated TSH unlikely cause of patient 's symptoms today especially given improvement of symptoms with lopressor administration. Additional labs and imaging reviewed. Grossly within normal limits. Abnormal values not concerning for acute pathology related to presenting complaint. Discussed with patient the importance of following up with his PCP and sheet rocker regarding elevated TSH and today's visit. Patient advised to continue his medications as prescribed. All questions were answered and patient was comfortable with plan for discharge home. In my medical judgment there is currently no evidence of an immediate life-threatening or surgical condition. Discharge is therefore indicated at this time. Discharge treatment instructions, follow up instructions, and appropriate emergency department return precautions were discussed with the patient and/or medical decision maker. Patient and/or medical decision maker expressed understanding of and agreed with the treatment plan, follow up instructions, and emergency department return precaution. All patient's and/or medical decision maker's questions were answered. Undiagnosed new problem with uncertain prognosis? @ -No Drug Therapy requiring intensive monitoring for toxicity (Heparin, Nitro, Insulin, Cardizem)? @ -No Were any procedures done? @ -No Diagnosis/symptom? @ -Palpitations, elevated TSH, atrial fibrillation Acute, or Chronic, or Acute on Chronic? @ -Acute on chronic Uncomplicated (without systemic symptoms) or Complicated (systemic symptoms)? @ -Complicated Side effects of treatment? @ -No Exacerbation, Progression, or Severe Exacerbation? @ -No Poses a threat to life or bodily function? How? (Chest pain, USA, MA, pneumonia, PE, COPD, DKA, ARF, appy, cholecystitis, CVA, Diverticulitis, Homicidal, Suicidal, threat to staff... and all critical care pts) @ -Unlikely - Lab Data Result diagrams: 06/14/24 21:29 06/14/24 21:29 Lab Results 06/14/24 06/14/24 06/14/24 Range/Units 21:29 21:29 21:29 WBC 4.9 (3.8-10.6) k/uL RBC 4.51 (4.30-5.90) m/uL Hgb 12.4 L (13.0-17.5) gm/dL Hct 39.6 (39.0-53.0) % MCV 87.7 (80.0-100.0) fL MCH 27.4 (25.0-35.0) pg MCHC 31.3 (31.0-37.0) g/dL RDW 16.8 H (11.5-15.5) % Plt Count 321 (150-450) k/uL MPV 8.0 Neutrophils % 65 % Lymphocytes % 22 % Monocytes % 8 % Eosinophils % 2 % Basophils % 1 % Neutrophils # 3.2 (1.3-7.7) k/uL Lymphocytes # 1.1 (1.0-4.8) k/uL Monocytes # 0.4 (0-1.0) k/uL Eosinophils # 0.1 (0-0.7) k/uL Basophils # 0.0 (0-0.2) k/uL Hypochromasia Moderate Anisocytosis Slight PT 11.0 (10.0-12.5) sec INR 1.0 (<1.2) APTT 29.0 (22.0-30.0) sec Sodium 133 L (137-145) mmol/L Potassium 4.7 (3.5-5.1) mmol/L Chloride 105 (98-107) mmol/L Carbon Dioxide 23 (22-30) mmol/L Anion Gap 5 mmol/L BUN 11 (9-20) mg/dL Creatinine 0.81 (0.66-1.25) mg/dL Est GFR (CKD-EPI) Est GFR (CKD-EPI)AfAm >90 (>60 ml/min/1.73 sqM) Est GFR (CKD-EPI)NonAf 86 (>60 ml/min/1.73 sqM) Glucose 98 (74-99) mg/dL Calcium 9.2 (8.4-10.2) mg/dL Magnesium 1.6 (1.6-2.3) mg/dL Total Bilirubin 1.5 H (0.2-1.3) mg/dL AST 39 (17-59) U/L ALT 15 (4-49) U/L Alkaline Phosphatase 89 (38-126) U/L Troponin I (0.000-0.034) ng/mL Total Protein 6.6 (6.3-8.2) g/dL Albumin 3.8 (3.5-5.0) g/dL TSH (0.465-4.680) mIU/L Free T4 (0.78-2.19) ng/dL 06/14/24 06/14/24 Range/Units 21:29 21:29 WBC (3.8-10.6) k/uL RBC (4.30-5.90) m/uL Hgb (13.0-17.5) gm/dL Hct (39.0-53.0) % MCV (80.0-100.0) fL MCH (25.0-35.0) pg MCHC (31.0-37.0) g/dL RDW (11.5-15.5) % Plt Count (150-450) k/uL MPV Neutrophils % % Lymphocytes % % Monocytes % % Eosinophils % % Basophils % % Neutrophils # (1.3-7.7) k/uL Lymphocytes # (1.0-4.8) k/uL Monocytes # (0-1.0) k/uL Eosinophils # (0-0.7) k/uL Basophils # (0-0.2) k/uL Hypochromasia Anisocytosis PT (10.0-12.5) sec INR (<1.2) APTT (22.0-30.0) sec Sodium Cancelled (137-145) mmol/L Potassium Cancelled (3.5-5.1) mmol/L Chloride Cancelled (98-107) mmol/L Carbon Dioxide Cancelled (22-30) mmol/L Anion Gap Cancelled mmol/L BUN Cancelled (9-20) mg/dL Creatinine Cancelled (0.66-1.25) mg/dL Est GFR (CKD-EPI) Cancelled Est GFR (CKD-EPI)AfAm Cancelled (>60 ml/min/1.73 sqM) Est GFR (CKD-EPI)NonAf Cancelled (>60 ml/min/1.73 sqM) Glucose Cancelled (74-99) mg/dL Calcium Cancelled (8.4-10.2) mg/dL Magnesium (1.6-2.3) mg/dL Total Bilirubin Cancelled (0.2-1.3) mg/dL AST Cancelled (17-59) U/L ALT Cancelled (4-49) U/L Alkaline Phosphatase Cancelled (38-126) U/L Troponin I 0.026 (0.000-0.034) ng/mL Total Protein Cancelled (6.3-8.2) g/dL Albumin Cancelled (3.5-5.0) g/dL TSH 8.240 H (0.465-4.680) mIU/L Free T4 1.60 (0.78-2.19) ng/dL Disposition Clinical Impression: Medication dose missed, Palpitations, Elevated TSH Disposition: HOME SELF-CARE Condition: Good Instructions (If sedation given, give patient instructions): Heart Palpitations (ED) Additional Instructions: Every disease is a spectrum and a small chance still exists that a serious condition could develop, for this reason, please monitor yourself closely for new, changing or worsening symptoms, return of symptoms, chest pain, difficulty in breathing, confusion, ret fever, inability to tolerate/keep down fluids or your medications, inability to follow up with outpatient providers as instructed and should you experience these symptoms or should you have any further concerns for your wellbeing please return to the ED or call 911 immediately. PLEASE call your primary care physician as soon as possible to arrange / discuss plan for followup appointment. Appointment in the next 1-3 days is strongly encouraged if possible. PLEASE let us know here before you leave if there is anything further we can do to be of any assistance. Take care and feel Better! Is patient prescribed a controlled substance at d/c from ED?: No Referrals: Enoch Galarza MD [Primary Care Provider] - 1-2 days Time of Disposition: 01:36
--- NOTE | 2024-06-14 22:29 | XR ---
EXAMINATION TYPE: XR chest 2V DATE OF EXAM: 06/14/2024 9:43 PM CLINICAL INDICATION: Male, 78 years old with history of dysrhythmia; H COMPARISON: Chest radiographs from 05/20/2024 TECHNIQUE: XR chest 2V Frontal view of the chest. FINDINGS: Lungs/Pleura: There is no evidence of pleural effusion, focal consolidation, or pneumothorax. Pulmonary vascularity: Unremarkable. Heart/mediastinum: Cardiomediastinal silhouette is unremarkable. Musculoskeletal: No acute osseous pathology. IMPRESSION: No acute cardiopulmonary disease/process.
[2024-06-14 22:41] LABS: Anisocytosis Slight; Basophils % (A) 1 %; Eosinophils # (A) 0.1 k/uL (0-0.7); Eosinophils % (A) 2 %; HCT 39.6 % (39.0-53.0); HGB 12.4 gm/dL (13.0-17.5); Hypochromasia Moderate; Lymphocytes # (A) 1.1 k/uL (1.0-4.8); Lymphocytes % (A) 22 %; MCH 27.4 pg (25.0-35.0); MCHC 31.3 g/dL (31.0-37.0); MCV 87.7 fL (80.0-100.0); Monocytes # (A) 0.4 k/uL (0-1.0); Monocytes % (A) 8 %; Neutrophils # (A) 3.2 k/uL (1.3-7.7); Neutrophils % (A) 65 %; Platelet Count 321 k/uL (150-450); RBC 4.51 m/uL (4.30-5.90); RDW 16.8 % (11.5-15.5); WBC 4.9 k/uL (3.8-10.6)
[2024-06-14 22:58] LABS: ALT 15 U/L (4-49); African American GFR (CKD) >90 (>60 ml/min/1.73 sqM); Anion Gap 5 mmol/L; Blood Urea Nitrogen 11 mg/dL (9-20); Calcium 9.2 mg/dL (8.4-10.2); Carbon Dioxide 23 mmol/L (22-30); Chloride 105 mmol/L (98-107); Glucose 98 mg/dL (74-99); Non-African American GFR(CKD) 86 (>60 ml/min/1.73 sqM); Sodium 133 mmol/L (137-145)
[2024-06-14 23:04] LABS: Magnesium 1.6 mg/dL (1.6-2.3); Potassium 4.7 mmol/L (3.5-5.1)
[2024-06-14 23:05] LABS: AST 39 U/L (17-59); Albumin 3.8 g/dL (3.5-5.0); Alkaline Phosphatase 89 U/L (38-126); Total Bilirubin 1.5 mg/dL (0.2-1.3); Total Protein 6.6 g/dL (6.3-8.2)
[2024-06-15 01:53] VITALS: BP 126/96; PULSE 89; RESP 18; TEMP 98.5
== END 2024-06-15 01:58 | disposition home or self-care (01) ==
LOC: EC 20:50
DX: R00.2 Palpitations (principal); R94.6 Abnormal results of thyroid function studies; I48.91 Unspecified atrial fibrillation; Z91.130 Patient's unintentional underdosing of medication regimen due to age-related debility; J44.9 Chronic obstructive pulmonary disease, unspecified; I25.10 Atherosclerotic heart disease of native coronary artery without angina pectoris; Z79.899 Other long term (current) drug therapy
CPT/HCPCS: 36415; 93005; 84439; 80053; 84443; 83735; 84484; 85025; 85610; 85730; 71046; 99285; 96365; 96366 ×2; 96375; J3475

== ENCOUNTER 2024-08-31 16:27 | Observation (INO) | payer MEDICARE ==
[2024-08-31 18:12] LABS: Basophils % (A) 1 %; Eosinophils # (A) 0.2 k/uL (0-0.7); Eosinophils % (A) 4 %; HCT 38.3 % (39.0-53.0); HGB 11.6 gm/dL (13.0-17.5); Hypochromasia Moderate; Lymphocytes # (A) 1.3 k/uL (1.0-4.8); Lymphocytes % (A) 22 %; MCH 25.3 pg (25.0-35.0); MCHC 30.1 g/dL (31.0-37.0); MCV 83.9 fL (80.0-100.0); Mean Platelet Volume 8.1; Monocytes # (A) 0.6 k/uL (0-1.0); Monocytes % (A) 11 %; Neutrophils # (A) 3.5 k/uL (1.3-7.7); Neutrophils % (A) 60 %; Platelet Count 294 k/uL (150-450); RBC 4.57 m/uL (4.30-5.90); RDW 15.2 % (11.5-15.5); WBC 5.8 k/uL (3.8-10.6)
[2024-08-31 18:31] LABS: ALT 13 U/L (4-49); African American GFR (CKD) 84 (>60 ml/min/1.73 sqM); Albumin 3.8 g/dL (3.5-5.0); Anion Gap 4 mmol/L; Blood Urea Nitrogen 21 mg/dL (9-20); Calcium 8.7 mg/dL (8.4-10.2); Carbon Dioxide 28 mmol/L (22-30); Chloride 101 mmol/L (98-107); Creatine Kinase 43 U/L (55-170); Glucose 78 mg/dL (74-99); Non-African American GFR(CKD) 73 (>60 ml/min/1.73 sqM); Sodium 133 mmol/L (137-145); Total Bilirubin 0.8 mg/dL (0.2-1.3); Total Protein 6.7 g/dL (6.3-8.2)
[2024-08-31 18:33] LABS: AST 28 U/L (17-59); Alkaline Phosphatase 91 U/L (38-126); Magnesium 1.9 mg/dL (1.6-2.3)
[2024-08-31 18:36] LABS: Partial Thromboplastin Time 28.3 sec (22.0-30.0); Prothrombin Time 11.2 sec (10.0-12.5)
--- NOTE | 2024-08-31 19:20 | ED ---
Weakness HPI - General Chief complaint: Weakness Stated complaint: Weakness Time Seen by Provider: 08/31/24 16:35 Source: patient, EMS Mode of arrival: EMS Limitations: no limitations - History of Present Illness Initial comments: 78-year-old male with past medical history of A-fib, COPD, hypertension who presents to the emergency department with weakness. History is obtained from the son. Son states that his dad has been more sleepy and he has been difficult to arouse at home. He has had multiple falls as he is having difficulty ambula ting on his own. Reports that he did not get out of his chair at all today. Over the weekend the patient was reporting chest pain but denies any today. Son is having a difficult time caring for him and keep him safe due to the falls. Today got so bad that he decided to call EMS. Patient arrives and denies any symptoms. States that he is here because his son is "pulling a prank on him". He denies any chest pain or difficulty breathing. No changes in his bowel or bladder habits. No recent illnesses. No medication changes. No other alleviating, precipitating modifying factors - Related Data Home Medications Medication Instructions Recorded Confirmed Albuterol Sulfate [Proair Hfa] 1 puff INHALATION RT-QID PRN 03/01/22 08/31/24 Atorvastatin [Lipitor] 20 mg PO HS 03/01/22 08/31/24 Rivaroxaban [Xarelto] 20 mg PO W/SUPPER 03/01/22 08/31/24 buPROPion HCL [Wellbutrin XL] 300 mg PO DAILY 03/01/22 08/31/24 Levothyroxine Sodium [Synthroid] 75 mcg PO DAILY 04/27/24 08/31/24 Mirabegron [Myrbetriq] 25 mg PO DAILY 05/19/24 08/31/24 Amiodarone [Cordarone] 100 mg PO DAILY 08/31/24 08/31/24 DULoxetine HCL [Cymbalta] 120 mg PO DAILY 08/31/24 08/31/24 Pregabalin [Lyrica] 200 mg PO TID 08/31/24 08/31/24 Triamterene-Hctz 37.5-25Mg 1 cap PO DAILY 08/31/24 08/31/24 [Dyazide 37.5-25 Capsule] Previous Rx's Medication Instructions Recorded Metoprolol Succinate (ER) [Toprol 50 mg PO DAILY #30 tab 05/23/24 XL] Folic Acid 1 mg PO DAILY #90 tab 09/07/24 Allergies Allergy/AdvReac Type Severity Reaction Status Date / Time No Known Allergies Allergy Verified 08/31/24 19:03 Review of Systems ROS Statement: Those systems with pertinent positive or pertinent negative responses have been documented in the HPI. ROS Other: All systems not noted in ROS Statement are negative. Past Medical History Past Medical History: Atrial Fibrillation, Atrial Flutter, COPD, Hypertension, Osteoarthritis (OA), Sleep Apnea/CPAP/BIPAP Additional Past Medical History / Comment(s): hx of prostate cancer with prostatectomy. Neuropathy, Cardiac cath, does not use c-pap machine anymore. History of Any Multi-Drug Resistant Organisms: None Reported Past Surgical History: Back Surgery, Heart Catheterization, Joint Replacement Additional Past Surgical History / Comment(s): (B) hip replecement, (B)knee replacement, laminectomy x6, prostatectomy, spinal cord decompression Past Anesthesia/Blood Transfusion Reactions: No Reported Reaction Additional Past Anesthesia/Blood Transfusion Reaction / Comment(s): Pt has only received own blood donated prior to surgery. Past Psychological History: Depression Smoking Status: Never smoker Past Alcohol Use History: Occasional Past Drug Use History: None Reported - Past Family History Father Family Medical History: Congestive Heart Failure (CHF), Hypertension, Myocardial Infarction ([place]) Additional Family Medical History / Comment(s): Father of a [place] at age 89 yrs. Mother Family Medical History: Cancer Additional Family Medical History / Comment(s): Mother had multiple myeloma. She at age 68 yrs. General Exam Limitations: no limitations General appearance: alert, in no apparent distress Head exam: Present: atraumatic, normocephalic, normal inspection Eye exam: Present: normal appearance, PERRL, EOMI. Absent: scleral icterus, conjunctival injection, periorbital swelling ENT exam: Present: normal exam, mucous membranes moist Neck exam: Present: normal inspection. Absent: tenderness, meningismus, lymphadenopathy Respiratory exam: Present: normal lung sounds bilaterally. Absent: respiratory distress, wheezes, rales, rhonchi, stridor Cardiovascular Exam: Present: regular rate, normal rhythm, normal heart sounds. Absent: systolic murmur, diastolic murmur, rubs, gallop, clicks GI/Abdominal exam: Present: soft, normal bowel sounds. Absent: distended, tenderness, guarding, rebound, rigid Extremities exam: Present: normal inspection, full ROM, normal capillary refill. Absent: tenderness, pedal edema, joint swelling, calf tenderness Back exam: Present: normal inspection Neurological exam: Present: alert, oriented X3, CN II-XII intact Psychiatric exam: Present: normal affect, normal mood Skin exam: Present: warm, dry, intact, normal color. Absent: rash Course Vital Signs 08/31/24 08/31/24 16:31 20:15 Temperature 97.7 F 98.0 F Pulse Rate 51 L 56 L Respiratory 12 17 Rate Blood Pressure 136/68 132/68 O2 Sat by Pulse 97 97 Oximetry Medical Decision Making - Medical Decision Making Was pt. sent in by a medical professional or institution (, PA, JIGMAN, urgent care, hospital, or senior care...) When possible be specific @ -No Did you speak to anyone other than the patient for history (EMS, parent, family, police, friend...)? What history was obtained from this source @ -Spoke with EMS and son for history Did you review nursing and triage notes (agree or disagree)? Why? @ -I reviewed and agree with nursing and triage notes Were old charts reviewed (outside hosp., previous admission, EMS record, old EKG, old radiological studies, urgent care reports/EKG's, senior care records)? Report findings @ -No old charts were reviewed Differential Diagnosis (chest pain, altered mental status, abdominal pain women, abdominal pain men, vaginal bleeding, weakness, fever, dyspnea, syncope, headache, dizziness, GI bleed, back pain, seizure, CVA, palpatations, mental health, musculoskeletal)? @ -Differential Weakness: Hypoglycemia, shock, sepsis, hyponatremia, anemia, infection, [place], ETOH, adverse medicine reaction, overdose, stroke, this is not meant to be an all-inclusive list. EKG interpreted by me (3pts min.). @ -Yes and demonstrates sinus bradycardia with a rate of 49. [place] interval 253. QRS 126. QTc of 460. Inverted T wave in lead III. No acute ST segment elevation X-rays interpreted by me (1pt min.). @ -None done CT interpreted by me (1pt min.). @ -Yes and demonstrates no acute process U/S interpreted by me (1pt. min.). @ -None done What testing was considered but not performed or refused? (CT, X-rays, U/S, labs)? Why? @ -None What meds were considered but not given or refused? Why? @ -None Did you discuss the management of the patient with other professionals (professionals i.e. Dr., PA, JIGMAN, lab, RT, psych nurse, social media strategist, knitter operator, teacher, wildlife officer, caseworker)? Give summary @ -Spoke with Dr. Galarza who will admit the patient Was smoking cessation discussed for >3mins.? @ -No Was critical care preformed (if so, how long)? @ -No Were there social determinants of health that impacted care today? How? (Homelessness, low income, unemployed, alcoholism, drug addiction, transportation, low edu. Level, literacy, decrease access to med. care, group home, re hab)? @ -No Was there de-escalation of care discussed even if they declined (Discuss DNR or withdrawal of care, Hospice)? DNR status @ -No What co-morbidities impacted this encounter? (DM, HTN, Smoking, COPD, CAD, Cancer, CVA, ARF, Chemo, Hep., AIDS, mental health diagnosis, sleep apnea, morbid obesity)? @ -None Was patient admitted / discharged? Hospital course, mention meds given and route, prescriptions, significant lab abnormalities, going to OR and other pertinent info. @ -Upon arrival patient seen and evaluated. Thorough history and physical exam was performed. Laboratory studies are conducted. CT brain was performed. Results are discussed with the patient. Son does not think he can care for the patient at home. He will be admitted. I spoke with Dr. Galarza who agreed with the admission Undiagnosed new problem with uncertain prognosis? @ -No Drug Therapy requiring intensive monitoring for toxicity (Heparin, Nitro, Insulin, Cardizem)? @ -No Were any procedures done? @ -No Diagnosis/symptom? @ -Acute weakness, acute encephalopathy Acute, or Chronic, or Acute on Chronic? @ -Acute Uncomplicated (without systemic symptoms) or Complicated (systemic symptoms)? @ -Complicated Side effects of treatment? @ -No Exacerbation, Progression, or Severe Exacerbation? @ -No Poses a threat to life or bodily function? How? (Chest pain, [place], [place], pneumonia, PE, COPD, DKA, ARF, appy, cholecystitis, CVA, Diverticulitis, Homicidal, Suicidal, threat to staff... and all critical care pts) @ -No - Lab Data Result diagrams: 09/04/24 15:10 09/04/24 15:10 Lab Results 08/31/24 08/31/24 08/31/24 Range/Units 18:00 18:00 18:00 WBC 5.8 (3.8-10.6) k/uL RBC 4.57 (4.30-5.90) m/uL Hgb 11.6 L (13.0-17.5) gm/dL Hct 38.3 L (39.0-53.0) % MCV 83.9 (80.0-100.0) fL MCH 25.3 (25.0-35.0) pg MCHC 30.1 L (31.0-37.0) g/dL RDW 15.2 (11.5-15.5) % Plt Count 294 (150-450) k/uL MPV 8.1 Neutrophils % 60 % Lymphocytes % 22 % Monocytes % 11 % Eosinophils % 4 % Basophils % 1 % Neutrophils # 3.5 (1.3-7.7) k/uL Lymphocytes # 1.3 (1.0-4.8) k/uL Monocytes # 0.6 (0-1.0) k/uL Eosinophils # 0.2 (0-0.7) k/uL Basophils # 0.0 (0-0.2) k/uL Hypochromasia Moderate PT 11.2 (10.0-12.5) sec INR 1.0 (<1.2) APTT 28.3 (22.0-30.0) sec Sodium 133 L (137-145) mmol/L Potassium 5.0 (3.5-5.1) mmol/L Chloride 101 (98-107) mmol/L Carbon Dioxide 28 (22-30) mmol/L Anion Gap 4 mmol/L BUN 21 H (9-20) mg/dL Creatinine 1.00 (0.66-1.25) mg/dL Est GFR (CKD-EPI)AfAm 84 (>60 ml/min/1.73 sqM) Est GFR (CKD-EPI)NonAf 73 (>60 ml/min/1.73 sqM) Glucose 78 (74-99) mg/dL Plasma Lactic Acid Caden (0.7-2.0) mmol/L Calcium 8.7 (8.4-10.2) mg/dL Magnesium 1.9 (1.6-2.3) mg/dL Total Bilirubin 0.8 (0.2-1.3) mg/dL AST 28 (17-59) U/L ALT 13 (4-49) U/L Alkaline Phosphatase 91 (38-126) U/L Creatine Kinase 43 L (55-170) U/L Troponin I (0.000-0.034) ng/mL Total Protein 6.7 (6.3-8.2) g/dL Albumin 3.8 (3.5-5.0) g/dL 08/31/24 08/31/24 Range/Units 18:00 18:00 WBC (3.8-10.6) k/uL RBC (4.30-5.90) m/uL Hgb (13.0-17.5) gm/dL Hct (39.0-53.0) % MCV (80.0-100.0) fL MCH (25.0-35.0) pg MCHC (31.0-37.0) g/dL RDW (11.5-15.5) % Plt Count (150-450) k/uL MPV Neutrophils % % Lymphocytes % % Monocytes % % Eosinophils % % Basophils % % Neutrophils # (1.3-7.7) k/uL Lymphocytes # (1.0-4.8) k/uL Monocytes # (0-1.0) k/uL Eosinophils # (0-0.7) k/uL Basophils # (0-0.2) k/uL Hypochromasia PT (10.0-12.5) sec INR (<1.2) APTT (22.0-30.0) sec Sodium (137-145) mmol/L Potassium (3.5-5.1) mmol/L Chloride (98-107) mmol/L Carbon Dioxide (22-30) mmol/L Anion Gap mmol/L BUN (9-20) mg/dL Creatinine (0.66-1.25) mg/dL Est GFR (CKD-EPI)AfAm (>60 ml/min/1.73 sqM) Est GFR (CKD-EPI)NonAf (>60 ml/min/1.73 sqM) Glucose (74-99) mg/dL Plasma Lactic Acid Caden 1.6 (0.7-2.0) mmol/L Calcium (8.4-10.2) mg/dL Magnesium (1.6-2.3) mg/dL Total Bilirubin (0.2-1.3) mg/dL AST (17-59) U/L ALT (4-49) U/L Alkaline Phosphatase (38-126) U/L Creatine Kinase (55-170) U/L Troponin I <0.012 (0.000-0.034) ng/mL Total Protein (6.3-8.2) g/dL Albumin (3.5-5.0) g/dL Disposition Clinical Impression: Acute encephalopathy, Multiple falls Disposition: ADMITTED IP TO THIS [facility] Condition: Stable Is patient prescribed a controlled substance at d/c from ED?: No Time of Disposition: 19:20 Decision to Admit Reason: Admit from EC Decision Date: 08/31/24 Decision Time: 19:20
[2024-08-31] MEDS ORDERED: NALOXONE 0.4 MG/ML 1 ML VIAL IV PRN (19:22)
[2024-08-31] MEDS ORDERED: ALBUTEROL NEBULIZED 2.5 MG/3 ML INHALATION PRN (22:20)
[2024-09-01] MEDS: lamoTRIgine 100 MG TAB PO SCH (02:34)
[2024-09-01] MEDS: PREGABALIN 100 MG CAP PO SCH (02:34)
[2024-09-01] MEDS: LEVOTHYROXINE 75 MCG TAB PO SCH (06:16)
[2024-09-01] MEDS: TRIAMTERENE-HCTZ 37.5-25MG 1 EACH CAP PO SCH (07:55)
[2024-09-01] MEDS: buPROPion XL 300 MG TAB.ER.24H PO SCH (07:56)
[2024-09-01] MEDS: DULoxetine HCL 60 MG CAPSULE.DR PO SCH (07:56)
[2024-09-01] MEDS: ARIPiprazole 2 MG TAB PO SCH (07:56)
[2024-09-01] MEDS: AMIODARONE 100 MG TAB PO SCH (07:56)
[2024-09-01] MEDS: NON FORMULARY DRUG (Mirabegron [Myrbetriq] 25 MG Tab.Er.24h) PO SCH (07:57)
[2024-09-01] MEDS: METOPROLOL SUCCINATE (ER) 50 MG TAB.ER.24H PO SCH (07:57)
[2024-09-01 08:40] LABS: Blood Urea Nitrogen 19.7 mg/dL (9.0-27.0); Calcium 8.4 mg/dL (8.7-10.3); Carbon Dioxide 29.2 mmol/L (21.6-31.8); Chloride 101 mmol/L (96-109); Glucose 104 mg/dL (70-110); Potassium 4.5 mmol/L (3.5-5.5); Sodium 137 mmol/L (135-145)
[2024-09-01 08:43] LABS: Basophils # (A) 0.08 X 10*3/uL (0.00-0.10); Basophils % (A) 1.7 %; Eosinophils # (A) 0.23 X 10*3/uL (0.04-0.35); HCT 32.8 % (39.6-50.0); HGB 9.7 g/dL (13.0-17.0); Lymphocytes # (A) 1.17 X 10*3/uL (0.90-5.00); Lymphocytes % (A) 25.4 %; MCH 24.6 pg (27.0-32.0); MCHC 29.6 g/dL (32.0-37.0); MCV 83.2 FL (80.0-97.0); Mean Platelet Volume 10.4 FL (9.5-12.2); Monocytes # (A) 0.59 X 10*3/uL (0.20-1.00); Monocytes % (A) 12.8 %; NRBC Per 100 WBC 0 X 10*3/uL (0.00-0.01); Neutrophils # (A) 2.53 X 10*3/uL (1.80-7.70); Neutrophils % (A) 54.9 %; Platelet Count 253 X 10*3/uL (140-440); RBC 3.94 X 10*6/uL (4.40-5.60); RDW 14.9 % (11.5-14.5); WBC 4.61 X 10*3/uL (4.50-10.00)
[2024-09-01 12:32] LABS: Appearance,Urine Cloudy (Clear); Bilirubin,Urine Negative (Negative); Blood,Urine Negative (Negative); Color,Urine Light Yellow; Glucose,Urine (UA) Negative (Negative); Ketones,Urine Negative (Negative); Leukocyte Esterase,Urine Negative (Negative); Mucus,Urine Occasional /hpf; Nitrite,Urine Negative (Negative); Protein,Urine Negative (Negative); Squamous Epithelial Cell,Urine 1 /hpf (0-4); Urobilinogen,Urine <2.0 mg/dL (<2.0); WBC,Urine 2 /hpf (0-5)
[2024-09-01 12:34] LABS: Amphetamine Screen,Urine Not Detected (NotDetected); Barbiturate Screen,Urine Not Detected (NotDetected); Benzodiazepines Screen,Urine Detected (NotDetected); Cocaine Screen,Urine Not Detected (NotDetected); Methadone Screen, Urine Not Detected (NotDetected); Opiate Screen,Urine Not Detected (NotDetected); Oxycodone Screen, Urine Not Detected (NotDetected); Phencyclidine Screen,Urine Not Detected (NotDetected); Tricyclic Antidepressant,Urine Not Detected (NotDetected); Urn Cannabinoid Scrn Not Detected (NotDetected)
[2024-09-01] MEDS: RIVAROXABAN 20 MG TAB PO SCH (16:42)
[2024-09-01] MEDS: ATORVASTATIN 20 MG TAB PO SCH (20:07)
[2024-09-01 20:46] LABS: Glucose,Whole Blood 103 mg/dL (70-110)
--- NOTE | 2024-09-02 10:55 | CT ---
EXAMINATION TYPE: CT brain wo con DATE OF EXAM: 09/02/2024 COMPARISON: Head CT dated 06/04/2024 CLINICAL INDICATION: Male, 78 years old with history of fall blood thinner; PHH, fall on thinners CT DLP: 1275 mGycm Automated exposure control for dose reduction was used. Findings: The ventricles, basal cisterns and sulci over convexities are moderately enlarged consistent with mod erate generalized atrophy, appropriate for the patient's age. There is mild0 decreased density in the periventricular white matter consistent with chronic ischemic white matter demyelination. There is no mass effect or shift of midline structures. There is no acute intra or extra-axial hemorrhage. The posterior fossa including the brainstem, fourth ventricle and cerebellopontine angles appear soto sly normal. The intraorbital contents appear normal symmetric Visualized paranasal sinuses and mastoid air cells are well aerated. Calvarium is intact. IMPRESSION: 1. Age appropriate senescent changes as described above. 2. No significant interval change. 3. No acute bleed or mass effect. [facility], Workstation: CATARINA 09/02/2024 10:53 AM
[2024-09-02] MEDS ORDERED: haloperidoL 5 MG TAB PO PRN (15:14)
--- NOTE | 2024-09-02 15:23 | P.CN ---
Psychiatric Consult - . Consult date: 09/02/24 Consult:: 09/02/24 15:15 IDENTIFYING DATA: This patient is a 78-year-old male, living at home with son REASON FOR REFERRAL: Psychiatry was consulted for confusion/mental status changes HISTORY OF PRESENT ILLNESS: The patient presented to the hospital with weakness. Patient reportedly lives with son who reported father to be more fatigued and weak than usual. UDS was positive for benzodiazepines. CT head was negative for any acute changes. Patient seen and evaluated in his room with sitter at bedside. Patient was A&Ox2 to self and place but not month. Patient reports he has a history of depression and anxiety and sees a psychiatrist every 3 months for medication management. He reports being on Xanax for "many years" however he reports using this at most up to twice a day but sometimes does not even use it. [facility]S revealed that patient has been regularly filling his Xanax 1 mg twice daily, last filling this on 08/09/2024. This was not continued on admission and given the short acting nature of this benzodiazepine, there are concerns with withdrawing from this medication. Patient himself feels like his current cocktail of psychotropic medications are stable, denying any depression or anxiety. At this time patient denies any suicidal or homical ideations, intent or plan. Patient denies any auditory, visual hallucinations and denies any paranoia or delusions. Patient was not agreeable with commercial underwriter speaking to his son as he feels like his son is the reason why he was admitted to the hospital. PAST PSYCHIATRIC HISTORY: Patient has a a history of depression/anxiety. She is currently on Abilify 2 mg twice daily, lamotrigine 150 mg twice daily, Wellbutrin XL 300 mg, duloxetine 120 mg, Xanax 1 mg twice daily. Patient reports his most recent inpatient hospitalization was 9 [address] ago[address]. Beckham for medication management. Patient denies any history of suicide attempts in the past. PAST MEDICAL HISTORY: Denies. ALLERGIES: as per EMR. CHEMICAL DEPENDENCY HISTORY: as per HPI. FAMILY PSYCHIATRIC/SUBSTANCE USE HISTORY: Denies SOCIAL HISTORY: Patient currently lives with his son MENTAL STATUS EXAM: General Appearance: Patient appears to be stated age is alert, irritable and quires frequent redirection. Patient appears to have fair hygiene and grooming wearing hospital gown with intense eye contact. Behavior: Patient is calmly lying in bed without any agitated behavior. Speech: Patient's speech is fluent and nonpressured. Mood/Affect: Patient reports their mood is "okay", affect is congruent Suicidality/Homicidality: Patient denies having any suicidal or homicidal ideation intent or plan. Perceptions: Patient denies any visual hallucinations and denies any auditory hallucinations Though content/process: There is no evidence of any delusional thought content and thought process is linear. Memory and concentration: AOX2 Judgment and insight: Poor IMPRESSIONS: History of depression History of anxiety PLAN: -At this time patient DOES NOT meet criteria for inpatient psychiatric admission. -Would recommend the following medication changes/additions: Start Klonopin 2 mg daily as patient has not been receiving Xanax since being admitted to the hospital and there are concerns of withdrawing from this short acting benzodiazepine. Will also add as needed Haldol 5 mg p.o./IM for acute safety concerns -Continue 1:1 sitter for safety -Communicated plan to patient's nurse -Psychiatry will sign off at this time -Please contact with any questions.
[2024-09-02] MEDS: clonazePAM 1 MG TAB PO SCH (15:51)
[2024-09-02] MEDS: HALOPERIDOL LACTATE 5 MG/ML 1 ML VIAL IM PRN (19:06)
--- NOTE | 2024-09-03 07:59 | P.CNNES ---
History of Present Illness Consult date: 09/02/24 Requesting physician: Enoch Galarza Reason for Consult: syncope, MS changes, encephalopathy History of Present Illness: Patient is a 78-year-old right-handed male came to the hospital ambulance 2 days ago, 08/31/2024 at 4:27 PM for altered mental status and falls. Patient states that his son said that he was disoriented off and on over 3 days duration, and is fallen many times. He did fall sideways. Patient states that he does use a cane although in-house he uses a walker with wheels in front and the back legs have Doris. He always uses some kind of device for ambulation. Sometimes he uses cane in the house. Rarely he does not use anything when he is in a hurry. Patient states that he has been seen by a neurologist Dr. Mueller, at [facility] who said that patient does not have Parkinson's disease, rather has essential tremors. Patient states that he has been having frequent falls. When it happens, he crawls on the carpet to get to the chair to get up and that produces rug burn on his knees. He states that prior to arrival, he was very wobbly, fell backwards therefore was brought to the hospital. As per EMS flowsheet, when they arrived, patient was found in care of self and family. Per family, the patient has been sitting in his chair all day and has not moved. Per family, the patient has been having periods of changes in mental status on and off. Per family, the patient has had a few falls over the last few days. Patient was complaining of chest pain the night prior but would not go to the hospital. He denies any head neck or back pain. Patient denies hitting his head. Patient denies any chest pain or shortness of breath, although he states some shortness of breath while trying to walk. No vomiting or diarrhea. Patient was inconsistent with answers and repetitive. Vital signs at the scene was blood pressure 143/77, pulse rate 52 respiration 24 saturation 95%. EKG shows atrial fibrillation. Patient's vitals has been stable in the hospital. Blood test shows normal WBC hemoglobin 11.6, platelets 294. PT PTT normal. Sodium 133 potassium 5.0, josue l renal functions, normal hepatic panel. Troponin is negative, CK normal, UA negative, urine drug screen positive for benzo. EKG shows sinus bradycardia with first-degree AV block. CT head showed age-appropriate senescent changes. No significant interval change. I personally reviewed CT head, agree with the findings. Home medications include Xarelto 20 mg, Wellbutrin XL 300 mg, Lipitor, Abilify 2 mg twice daily, levothyroxine, Xanax 1 mg twice daily, oxycodone 50 mg 4 times daily, Myrbetriq, metoprolol, Lamictal 150 mg twice daily, Dyazide, Lyrica 200 mg 3 times daily, Cymbalta 120 mg and Cordarone 100 mg daily. Patient denies any tobacco or alcohol use. He has hypertension but no diabetes. Review of Systems All pertinent positive and negative review of systems mentioned in the HPI. Otherwise unremarkable. Past Medical History Past Medical History: Atrial Fibrillation, Atrial Flutter, COPD, Hypertension, Osteoarthritis (OA), Sleep Apnea/CPAP/BIPAP Additional Past Medical History / Comment(s): hx of prostate cancer with prostatectomy. Neuropathy, Cardiac cath, does not use c-pap machine anymore. History of Any Multi-Drug Resistant Organisms: None Reported Past Surgical History: Back Surgery, Heart Catheterization, Joint Replacement Additional Past Surgical History / Comment(s): (B) hip replecement, (B)knee replacement, laminectomy x6, prostatectomy, spinal cord decompression Past Anesthesia/Blood Transfusion Reactions: No Reported Reaction Additional Past Anesthesia/Blood Transfusion Reaction / Comment(s): Pt has only received own blood donated prior to surgery. Past Psychological History: Depression Additional Psychological History / Comment(s): He lives with family. He walks with a cane. He drives a car. Smoking Status: Never smoker Past Alcohol Use History: Occasional Past Drug Use History: None Reported - Past Family History Father Family Medical History: Congestive Heart Failure (CHF), Hypertension, Myocardial Infarction ([place]) Additional Family Medical History / Comment(s): Father of a [place] at age 89 yrs. Mother Family Medical History: Cancer Additional Family Medical History / Comment(s): Mother had multiple myeloma. She at age 68 yrs. Medications and Allergies Home Medications Medication Instructions Recorded Confirmed Type Albuterol Sulfate [Proair Hfa] 1 puff INHALATION RT-QID PRN 03/01/22 08/31/24 History Atorvastatin [Lipitor] 20 mg PO HS 03/01/22 08/31/24 History Rivaroxaban [Xarelto] 20 mg PO W/SUPPER 03/01/22 08/31/24 History buPROPion HCL [Wellbutrin XL] 300 mg PO DAILY 03/01/22 08/31/24 History ARIPiprazole [Abilify] 2 mg PO BID 11/27/23 08/31/24 History Levothyroxine Sodium [Synthroid] 75 mcg PO DAILY 04/27/24 08/31/24 History ALPRAZolam [Xanax] 1 mg PO BID 05/19/24 08/31/24 History Mirabegron [Myrbetriq] 25 mg PO DAILY 05/19/24 08/31/24 History oxyCODONE HCL [oxyCODONE HCL (IR)] 15 mg PO QID PRN 05/19/24 08/31/24 History Metoprolol Succinate (ER) [Toprol 50 mg PO DAILY #30 tab 05/23/24 08/31/24 Rx XL] Amiodarone [Cordarone] 100 mg PO DAILY 08/31/24 08/31/24 History DULoxetine HCL [Cymbalta] 120 mg PO DAILY 08/31/24 08/31/24 History Pregabalin [Lyrica] 200 mg PO TID 08/31/24 08/31/24 History Triamterene-Hctz 37.5-25Mg 1 cap PO DAILY 08/31/24 08/31/24 History [Dyazide 37.5-25 Capsule] lamoTRIgine [LaMICtal] 150 mg PO BID 08/31/24 08/31/24 History Allergies Allergy/AdvReac Type Severity Reaction Status Date / Time No Known Allergies Allergy Verified 08/31/24 19:03 Physical Examination - Vital Signs Vital Signs: Vital Signs Temp Pulse Resp BP Pulse Ox 09/02/24 17:53 54 L 13 09/02/24 14:00 97.6 F 56 L 13 118/58 09/02/24 07:00 97.7 F 56 L 18 123/64 97 09/02/24 02:43 54 L 18 123/69 97 09/02/24 00:52 53 L 119/71 96 09/01/24 23:52 51 L 110/61 96 09/01/24 22:54 51 L 124/56 94 L 11/13/24 22:22 53 L 119/75 95 09/01/24 21:52 55 L 146/78 95 09/01/24 21:38 53 L 151/88 98 09/01/24 21:22 51 L 128/77 98 09/01/24 21:07 52 L 125/78 96 09/01/24 20:52 56 L 130/74 95 09/01/24 19:44 98.3 F 59 L 18 118/70 95 Intake and Output 09/02/24 09/02/24 09/02/24 06:59 14:59 22:59 Intake Total 236 Output Total 700 850 Balance -700 236 -850 Intake: Oral 236 Output: Urine 700 850 Other: Voiding Method External Catheter External Catheter Patient is an elderly male, in no acute distress. Patient is alert awake oriented to time place and person. He knows it is August 2024 and that he is in [facility] in [place] and name of the current president Mr. Oconnell. Speech and language functions are normal. Patient can name and repeat very well. No aphasia or dysarthria. Attention, concentration and fund of knowledge is adequate. On cranial nerve examination, pupils are equal, round and reacting to light, visual rose are full on confrontation, with no neglect on double simultaneous stimulation. Extraocular muscles are intact with no nystagmus. Face is symmetric, tongue protrudes to the midline. Palatal elevation and sensation normal, hearing and shoulder shrug normal, facial sensation normal. On muscle strength testing, there is no pronator drift and the strength is norm al in arms and legs distally and proximally. Patient has history of right rotator cuff issues. Deep tendon reflexes are symmetric 1+ to 2 in the upper limbs, trace at the knees and absent ankles and plantars downgoing. Sensory to touch is equal with no neglect on double simultaneous stimulation. Cerebellar function showed no ataxia for [id number] testing. No dysdiadochokinesia. No ataxia for ptsx-lu-togg testing on either side. Tone is mildly increased bilaterally and bulk of muscles normal. Patient has intermittent tremors at rest, mild mild degree, on the right arm. Patient has mild myoclonic jerks of outstretched hands. Patient does appear slightly bradykinetic. Gait deferred.. On general examination, there is no carotid bruit or murmur, S1-S2 audible. Chest is clear on consultation. Abdomen is soft nontender. No organomegaly, bowel sounds present. Peripheral pulses are present. No peripheral edema. Patient has some arthritic type deformity of the fingers of the right hand and previous poorly healed fracture of the ring finger of left hand. Results - Laboratory Findings CBC and BMP: 09/01/24 04:41 09/01/24 04:41 Abnormal Lab Findings: Abnormal Labs 08/31/24 08/31/24 09/01/24 18:00 18:00 04:41 RBC 3.94 L Hgb 11.6 L 9.7 L Hct 38.3 L 32.8 L MCH 24.6 L MCHC 30.1 L 29.6 L RDW 14.9 H Sodium 133 L BUN 21 H Calcium Creatine Kinase 43 L Urine Mucus U Benzodiazepines Scrn 09/01/24 09/01/24 09/01/24 04:41 11:22 11:22 RBC Hgb Hct MCH MCHC RDW Sodium BUN Calcium 8.4 L Creatine Kinase Urine Mucus Occasional H U Benzodiazepines Scrn Detected H Assessment and Plan Assessment: * Altered mental status, likely due to metabolic encephalopathy, now remarkably improved. Reasons multifactorial as mentioned below. * Frequent falls due to losing balance. Patient does have parkinsonian type symptoms with mildly increased tone, bradykinesia, tremors at rest and postural instability. Patient is currently taking Abilify 2 mg twice daily. 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 * Acute kidney injury, dehydration, resolved. * Polypharmacy * Chronic systolic heart failure, with EF 40-45%. * Paroxysmal atrial fibrillation, on Xarelto * Obstructive sleep apnea * History of prostate cancer and previous prostatectomy * History of idiopathic sensory peripheral neuropathy Plan: * Patient's mentation is back to normal. He still has mild metabolic encephalopathy manifested with mild myoclonic jerks of outstretched hands. * Renal functions have normalized. 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 He takes Abilify 2 mg twice daily. Patient will discuss with his psychiatrist about possibly switching to another medication if possible. * PT OT. * Check B12, folate. * Neurologically clear otherwise if cleared by PT OT. Thank you for the consult.
--- NOTE | 2024-09-04 02:44 | HP ---
HISTORY AND PHYSICAL ADDENDUM: He was admitted to the hospital with the diagnoses of: 1. Mental status changes. 2. Encephalopathy. 3. Frequent falling. 4. Congestive heart failure. 5. Anemia. PLAN: 1. Bedrest. 2. IV fluids. 3. Frequent monitoring of his neurologic status and vital signs. 4. Consult with Cardiology, psychiatry, and Neurology. LINNEA / LYNDSEY: [id number] /
--- NOTE | 2024-09-04 08:12 | PN ---
PROGRESS NOTE DATE OF SERVICE: 09/01/2024 CHIEF COMPLAINT: Acute mental changes with frequent falling. HISTORY OF PRESENT ILLNESS: This gentleman remains very confused. There is no sign of intracranial hemorrhage. PHYSICAL EXAMINATION: GENERAL: Color is good. CHEST: Clear. CARDIAC: Normal. ABDOMEN: Soft, nontender. IMPRESSION: 1. Mental status changes. 2. Encephalopathy. 3. Frequent falling. 4. Anemia. 5. History of congestive heart failure. PLAN: 1. Continue frequent monitoring of his vital signs and neurologic status. 2. Psychiatric and neurologic examination. MMODL / IJN: [id number] /
--- NOTE | 2024-09-04 10:06 | PN ---
PROGRESS NOTE DATE OF SERVICE: 09/03/2024 CHIEF COMPLAINT: Delirium, encephalopathy, and frequent falls. HISTORY OF PRESENT ILLNESS: This gentleman remains confused. Blood pressure is also elevated. He denies complaints of headache, neurologic issues, change in his vision, etc. PHYSICAL EXAMINATION: CHEST: Clear. CARDIAC: Normal. NEUROLOGIC: He remains somewhat lethargic and confused. IMPRESSION: 1. Frequent falling. 2. Encephalopathy. 3. Probable closed head injury. 4. Congestive heart failure. 5. Probable bipolar depression. 6. Hypertension. 7. Anemia. PLAN: Decrease some of his medications to see if he becomes more awake and alert. He is being followed by Neurology. MMODL / IJN: [id number] /
--- NOTE | 2024-09-04 10:50 | PN ---
PROGRESS NOTE DATE OF SERVICE: 09/02/2024 CHIEF COMPLAINT: 1. Confusion. 2. Encephalopathy. 3. Frequent falls. HISTORY OF PRESENT ILLNESS: This gentleman fell in the hospital and struck the back of his head. He remains fairly alert, but confused. He is being evaluated by Neurology. PHYSICAL EXAMINATION: CHEST: Clear. CARDIAC: Normal. ABDOMEN: Soft, nontender. NEUROLOGIC: He is awake, but confused. IMPRESSION: 1. Encephalopathy. 2. Closed head injury. 3. Frequent falling. 4. Congestive heart failure. PLAN: Continue following his neurologic issues. Some of his medicines may be decreased to see if he becomes more alert and more stable. MMODL / IJN: [id number] /
--- NOTE | 2024-09-04 14:01 | P.CRDCN ---
History of Present Illness Consult date: 09/04/24 Requesting physician: Enoch Galarza Reason for Consult (text): syncopal episodes History of present illness: This is a 78-year-old gentleman who is a poor historian. He was admitted on 08/31/2024. He is unsure why he was admitted to the hospital or why he even presented to the hospital. Most of the HPI was obtained from the chart. He follows with a rn document improvement out of [facility]. He has a history of COPD, hypertension, atrial fibrillation, and hypothyroidism. Prior history of likely Takotsubo cardiomyopathy and heart catheterization in April of this year that showed 20% lesion in the LAD with a 30 to 35% EF and segmental wall motion abnormality consistent with Takotsubo following that he underwent repeat echocardiogram that showed normalization of his EF. Patient does not recall this. He was apparently brought to the emergency department by his son who noted the patient to be increasingly more weak and sleepy and difficult to arouse at home. He has had multiple falls but no clear syncope. The patient does not recall having any syncopal episodes. Has been evaluated by psychiatry and neurology. We were asked to see the patient in consultation for possible syncope. EKG on admission showed sinus bradycardia. Blood pressure at times has been low. Troponin was negative. Initial hemoglobin 11.6 with subsequent hemoglobin of 9.7 on the and no redraw since then. Renal function was normal. Electrolytes normal. Patient denies any shortness of breath or chest pain. There is been no evidence of atrial fibrillation. Past Medical History Past Medical History: Atrial Fibrillation, Atrial Flutter, COPD, Hypertension, Osteoarthritis (OA), Sleep Apnea/CPAP/BIPAP Additional Past Medical History / Comment(s): hx of prostate cancer with prostatectomy. Neuropathy, Cardiac cath, does not use c-pap machine anymore. History of Any Multi-Drug Resistant Organisms: None Reported Past Surgical History: Back Surgery, Heart Catheterization, Joint Replacement Additional Past Surgical History / Comment(s): (B) hip replecement, (B)knee replacement, laminectomy x6, prostatectomy, spinal cord decompression Past Anesthesia/Blood Transfusion Reactions: No Reported Reaction Additional Past Anesthesia/Blood Transfusion Reaction / Comment(s): Pt has only received own blood donated prior to surgery. Past Psychological History: Depression Additional Psychological History / Comment(s): He lives with family. He walks with a cane. He drives a car. Smoking Status: Never smoker Past Alcohol Use History: Occasional Past Drug Use History: None Reported - Past Family History Father Family Medical History: Congestive Heart Failure (CHF), Hypertension, Myocardial Infarction ([place]) Additional Family Medical History / Comment(s): Father of a [place] at age 89 yrs. Mother Family Medical History: Cancer Additional Family Medical History / Comment(s): Mother had multiple myeloma. She at age 68 yrs. Medications and Allergies Home Medications Medication Instructions Recorded Confirmed Type Albuterol Sulfate [Proair Hfa] 1 puff INHALATION RT-QID PRN 03/01/22 08/31/24 History Atorvastatin [Lipitor] 20 mg PO HS 03/01/22 08/31/24 History Rivaroxaban [Xarelto] 20 mg PO W/SUPPER 03/01/22 08/31/24 History buPROPion HCL [Wellbutrin XL] 300 mg PO DAILY 03/01/22 08/31/24 History ARIPiprazole [Abilify] 2 mg PO BID 11/27/23 08/31/24 History Levothyroxine Sodium [Synthroid] 75 mcg PO DAILY 04/27/24 08/31/24 History ALPRAZolam [Xanax] 1 mg PO BID 05/19/24 08/31/24 History Mirabegron [Myrbetriq] 25 mg PO DAILY 05/19/24 08/31/24 History oxyCODONE HCL [oxyCODONE HCL (IR)] 15 mg PO QID PRN 05/19/24 08/31/24 History Metoprolol Succinate (ER) [Toprol 50 mg PO DAILY #30 tab 05/23/24 08/31/24 Rx XL] Amiodarone [Cordarone] 100 mg PO DAILY 08/31/24 08/31/24 History DULoxetine HCL [Cymbalta] 120 mg PO DAILY 08/31/24 08/31/24 History Pregabalin [Lyrica] 200 mg PO TID 08/31/24 08/31/24 History Triamterene-Hctz 37.5-25Mg 1 cap PO DAILY 08/31/24 08/31/24 History [Dyazide 37.5-25 Capsule] lamoTRIgine [LaMICtal] 150 mg PO BID 08/31/24 08/31/24 History Allergies Allergy/AdvReac Type Severity Reaction Status Date / Time No Known Allergies Allergy Verified 08/31/24 19:03 Physical Exam Vitals: Vital Signs Temp Pulse Resp BP Pulse Ox 09/04/24 07:00 97.2 F L 53 L 22 100/60 92 L 09/04/24 02:00 98.1 F 53 L 16 128/64 97 09/03/24 19:10 97.6 F 59 L 16 122/67 95 09/03/24 14:00 18 09/03/24 13:45 97.4 F L 57 L 18 102/64 94 L Intake and Output 09/03/24 09/04/24 09/04/24 22:59 06:59 14:59 Intake Total 118 0 0 Output Total 900 2500 Balance -782 -2500 0 Intake: Oral 118 0 0 Output: Urine 900 2500 Other: Voiding Method External Catheter # Bowel Movements 0 PHYSICAL EXAMINATION: This is a 78-year-old male in no apparent distress at the time of my examination. VITAL SIGNS: Reviewed HEENT: Head is atraumatic, normocephalic. Pupils are equal, round. Sclerae anicteric. Conjunctivae are clear. Mucous membranes of the mouth are moist. Neck is supple. There is no elevated jugular venous pressure. No carotid bruit is heard. CHEST EXAMINATION: Clear to auscultation bilaterally. No wheezes rales or rhonchi. Respirations even and nonlabored. HEART EXAMINATION: Heart regular, positive S1 and S2. No S3. No S4. Systolic murmur. ABDOMEN: Soft, nontender. Bowel sounds are heard. No organomegaly noted. EXTREMITIES: 2+ peripheral pulses with no evidence of peripheral edema and no calf tenderness noted. NEUROLOGIC EXAMINATION: Patient is drowsy, confused, oriented to person and place. 4 historian.. Results 09/01/24 04:41 09/01/24 04:41 Current Medications Generic Name Dose Route Start Last Admin Trade Name Freq PRN Reason Stop Dose Admin Acetaminophen 650 mg 08/31/24 19:22 Acetaminophen Tab 325 Mg Tab PO Q6HR PRN Mild Pain or Fever > 100.5 Albuterol Sulfate 2.5 mg 08/31/24 22:20 Albuterol Nebulized 2.5 Mg/3 Ml INHALATION RT-QID PRN Shortness Of Breath Amiodarone HCl 100 mg 09/01/24 09:00 09/04/24 09:15 Amiodarone 100 Mg Tab PO 100 mg DAILY FORTINO Administration Atorvastatin Calcium 20 mg 09/01/24 21:00 09/03/24 20:56 Atorvastatin 20 Mg Tab PO 20 mg HS FORTINO Administration Bupropion HCl 300 mg 09/01/24 09:00 09/04/24 09:15 Bupropion Xl 300 Mg Tab.Er.24h PO 300 mg DAILY FORTINO Administration Duloxetine HCl 120 mg 09/01/24 09:00 09/04/24 09:14 Duloxetine Hcl 60 Mg Capsule.Dr PO 120 mg DAILY FORTINO Administration Haloperidol 5 mg 09/02/24 15:14 Haloperidol 5 Mg Tab PO DAILY PRN Agitation Haloperidol Lactate 5 mg 09/02/24 15:14 09/02/24 19:06 Haloperidol Lactate 5 Mg/Ml 1 Ml Vial IM 5 mg Q6HR PRN Administration Agitation or Acute Psychosis Lamotrigine 150 mg 08/31/24 23:00 09/04/24 09:14 Lamotrigine 100 Mg Tab PO 150 mg BID FORTINO Administration Levothyroxine Sodium 75 mcg 09/01/24 06:30 09/04/24 05:39 Levothyroxine 75 Mcg Tab PO 75 mcg DAILY@0630 FORTINO Administration Metoprolol Succinate 50 mg 09/01/24 09:00 09/04/24 09:14 Metoprolol Succinate (Er) 50 Mg Tab.Er.24h PO 50 mg DAILY FORTINO Administration Naloxone HCl 0.2 mg 08/31/24 19:22 Naloxone 0.4 Mg/Ml 1 Ml Vial IV Q2M PRN Opioid Reversal Non-Formulary Medication 25 mg 09/01/24 09:00 09/04/24 09:16 Mirabegron [Myrbetriq] PO Not Given DAILY FORTINO Pregabalin 200 mg 08/31/24 22:30 09/04/24 09:14 Pregabalin 100 Mg Cap PO 200 mg TID FORTINO Administration Rivaroxaban 20 mg 09/01/24 17:30 09/03/24 18:10 Rivaroxaban 20 Mg Tab PO 20 mg W/SUPPER FORTINO Administration Protocol Triamterene/Hydrochlorothiazide 1 each 09/01/24 09:00 09/04/24 09:15 Triamterene-Hctz 37.5-25mg 1 Each Cap PO 1 each DAILY FORTINO Administration Intake and Output 09/03/24 09/04/24 09/04/24 22:59 06:59 14:59 Intake Total 118 0 0 Output Total 900 2500 Balance -782 -2500 0 Intake: Oral 118 0 0 Output: Urine 900 2500 Other: Voiding Method External Catheter # Bowel Movements 0 09/01/24 04:41 09/01/24 04:41 Assessment and Plan Assessment: #1 altered mental status, weakness and falls, questionable syncope #2 paroxysmal atrial fibrillation, maintaining sinus mechanism with bradycardia #3 history of Takotsubo cardiomyopathy #4 mild single-vessel CAD #5 hypertension Plan: From cardiology's perspective we will repeat labs including a CBC and a BMP as well as an NT proBNP. Patient appears to be euvolemic. We will repeat 2D echo with Doppler study. Decrease metoprolol. We will continue to follow the patient provide further recommendations accordingly. COMB MACHINE OPERATOR note has been reviewed, I agree with a documented findings and plan of care. Patient was seen and examined.
[2024-09-04 15:47] LABS: Basophils % (A) 1 %; Eosinophils # (A) 0.2 k/uL (0-0.7); Eosinophils % (A) 5 %; HCT 36.3 % (39.0-53.0); HGB 10.9 gm/dL (13.0-17.5); Hypochromasia Marked; Lymphocytes # (A) 0.7 k/uL (1.0-4.8); Lymphocytes % (A) 14 %; MCH 25.3 pg (25.0-35.0); MCHC 30.1 g/dL (31.0-37.0); MCV 83.8 fL (80.0-100.0); Mean Platelet Volume 7.3; Monocytes # (A) 0.4 k/uL (0-1.0); Monocytes % (A) 7 %; Neutrophils # (A) 3.6 k/uL (1.3-7.7); Neutrophils % (A) 71 %; Platelet Count 252 k/uL (150-450); RBC 4.33 m/uL (4.30-5.90); RDW 14.7 % (11.5-15.5)
[2024-09-04 15:58] LABS: African American GFR (CKD) 78 (>60 ml/min/1.73 sqM); Anion Gap -1 mmol/L; Blood Urea Nitrogen 24 mg/dL (9-20); Calcium 8.5 mg/dL (8.4-10.2); Carbon Dioxide 34 mmol/L (22-30); Chloride 99 mmol/L (98-107); Glucose 140 mg/dL (74-99); Non-African American GFR(CKD) 68 (>60 ml/min/1.73 sqM); Potassium 4.3 mmol/L (3.5-5.1); Sodium 132 mmol/L (137-145)
[2024-09-04 16:07] LABS: NT-Pro-B-Type Natriuretic Pept 314 pg/mL
[2024-09-05] MEDS: METOPROLOL SUCCINATE (ER) 25 MG TAB.ER.24H PO SCH (09:31)
[2024-09-05 10:59] LABS: T4, Free (Free Thyroxine) 1.61 ng/dL (0.78-2.19)
--- NOTE | 2024-09-05 11:59 | CA ---
Transthoracic Echo Report Name: Carlos Manuel Bustos Age: 78 Gender: M : 1945 Exam Date: 09/05/2024 08:35 Exam Location: [facility] Ht (in): 73 Wt (lb): 275 Ordering Physician: Danica Levi Attending/Referring Phys: [id number], Amita Pbx Operator Nahomi Banks, SAVANNA Procedure CPT: Indications: syncope, h/o takotsubo Cardiac Hx: COPD, HTN Technical Quality: Technically difficult study Contrast 1: Definity Total Dose (mL): 2 Contrast 2: Total Dose (mL): MEASUREMENTS (Male / Female) Normal Values 2D ECHO LV Diastolic Diameter PLAX 4.6 cm 4.2 - 5.9 / 3.9 - 5.3 cm LV Systolic Diameter PLAX 2.9 cm IVS Diastolic Thickness 1.5 cm 0.6 - 1.0 / 0.6 - 0.9 cm LVPW Diastolic Thickness 1.5 cm 0.6 - 1.0 / 0.6 - 0.9 cm LV Relative Wall Thickness 0.6 RV Internal Dim ED PLAX 3.5 cm LA Systolic Diameter LX 3.4 cm 3.0 - 4.0 / 2.7 - 3.8 cm M-MODE Aortic Root Diameter MM 3.8 cm LA Systolic Diameter MM 2.4 cm LA Ao Ratio MM 0.6 DOPPLER AV Peak Velocity 116.3 cm/s AV Peak Gradient 5.4 mmHg Mitral E Point Velocity 85.2 cm/s Mitral A Point Velocity 86.1 cm/s Mitral E to A Ratio 1.0 MV Deceleration Time 286.3 ms MV E' Velocity 8.7 cm/s Mitral E to MV E' Ratio 9.8 TR Peak Velocity 269.0 cm/s TR Peak Gradient 28.9 mmHg Right Ventricular Systolic Press 38.9 mmHg FINDINGS Left Ventricle Left ventricular ejection fraction is estimated at 55-60 %. Moderate concentric left ventricular hypertrophy. Left ventricular cavity size normal. No obvious regional wall motion abnormalities. Right Ventricle Mild right ventricular dilatation. Mild pulmonary hypertension. Right Atrium Normal right atrial size. No right atrial thrombus or mass seen. Left Atrium Normal left atrial size. No left atrial thrombus or mass present. Mitral Valve Structurally normal mitral valve. No mitral stenosis, regurgitation or prolapse.mitral annular calcification. Aortic Valve Trileaflet aortic valve. No aortic stenosis. No aortic regurgitation. Aortic valve sclerosis. Tricuspid Valve Structurally normal tricuspid valve. Mild tricuspid regurgitation. Pulmonic Valve Pulmonic valve not well visualized. Pericardium No pleural effusion. Small pericardial effusion by RV. Aorta Mild aortic dilatation at the level of the sinuses of valsalva 38 mm. CONCLUSIONS Technically difficult study. Definity ECHO contrast used for improved visualization of the endocardial borders (inadequate visualization of two or more contiguous segments). Normal left ventricular size and systolic function Mild tricuspid regurgitation Small pericardial effusion Previewed by: Dr. Norma Payton MD (Electronically Signed) Final Date: 05 September 2024 11:58
--- NOTE | 2024-09-05 12:17 | P.PN ---
Subjective Progress Note Date: 09/05/24 This is a 78-year-old gentleman who is a poor historian. He was admitted on 08/31/2024. He is unsure why he was admitted to the hospital or why he even presented to the hospital. Most of the HPI was obtained from the chart. He follows with a pants presser out of [facility]. He has a history of COPD, hypertension, atrial fibrillation, and hypothyroidism. Prior history of likely Takotsubo cardiomyopathy and heart catheterization in April of this year that showed 20% lesion in the LAD with a 30 to 35% EF and segmental wall motion abnormality consistent with Takotsubo following that he underwent repeat echocardiogram that showed normalization of his EF. Patient does not recall this. He was apparently brought to the emergency department by his son who noted the patient to be increasingly more weak and sleepy and difficult to arouse at home. He has had multiple falls but no clear syncope. The patient does not recall having any syncopal episodes. Has been evaluated by psychiatry and neurology. We were asked to see the patient in consultation for possible syncope. EKG on admission showed sinus bradycardia. Blood pressure at times has been low. Troponin was negative. Initial hemoglobin 11.6 with subsequent hemoglobin of 9.7 on the and no redraw since then. Renal function was normal. Electrolytes normal. Patient denies any shortness of breath or chest pain. There is been no evidence of atrial fibrillation. 09/05/2024 Patient was seen and examined resting in bed. He is more alert and awake this morning. Answering most questions appropriately. His only complaint this morning is right shoulder pain he apparently has a history of a rotator cuff tear. He is asking for Percocet and a consult to orthopedics for an injection. I advised the patient to discuss this with his admitting physician. Telemetry has been reviewed heart rate has been in the 50s and he is maintaining sinus mechanism. He denies any shortness of breath or chest discomfort. He has had no palpitations, dizziness or syncope. When talking to the patient he does recall that he was brought to the hospital after son called EMS due to falls at home. Yesterday he could not recall this. Objective - Vital Signs Vital signs: Vital Signs Temp 97.9 F 09/05/24 07:20 Pulse 53 L 09/05/24 07:20 Resp 17 09/05/24 07:20 BP 111/62 09/05/24 07:20 Pulse Ox 98 09/05/24 07:20 FiO2 Intake & Output 09/04/24 09/05/24 09/05/24 18:59 06:59 18:59 Intake Total 236 Output Total 400 1500 Balance -164 -1500 Intake: Oral 236 Output: Urine 400 1500 Other: Voiding Method External Catheter External Catheter # Bowel Movements 0 0 - Exam PHYSICAL EXAMINATION: This is a 78-year-old male in no apparent distress at the time of my examination. VITAL SIGNS: Reviewed HEENT: Head is atraumatic, normocephalic. Pupils are equal, round. Sclerae anicteric. Conjunctivae are clear. Mucous membranes of the mouth are moist. Neck is supple. There is no elevated jugular venous pressure. No carotid bruit is heard. CHEST EXAMINATION: Clear to auscultation bilaterally. No wheezes rales or rhonchi. Respirations even and nonlabored. HEART EXAMINATION: Heart regular, positive S1 and S2. No S3. No S4. Systolic murmur. ABDOMEN: Soft, nontender. Bowel sounds are heard. No organomegaly noted. EXTREMITIES: 2+ peripheral pulses with no evidence of peripheral edema and no calf tenderness noted. NEUROLOGIC EXAMINATION: Patient is awake, alert, and oriented, flat affect, slow response. - Labs CBC & Chem 7: 09/04/24 15:10 09/04/24 15:10 Labs: Abnormal Lab Results - Last 24 Hours (Table) 09/04/24 09/04/24 Range/Units 15:10 15:10 Hgb 10.9 L (13.0-17.5) gm/dL Hct 36.3 L (39.0-53.0) % MCHC 30.1 L (31.0-37.0) g/dL Lymphocytes # 0.7 L (1.0-4.8) k/uL Sodium 132 L (137-145) mmol/L Carbon Dioxide 34 H (22-30) mmol/L BUN 24 H (9-20) mg/dL Glucose 140 H (74-99) mg/dL Assessment and Plan Assessment: #1 altered mental status, weakness and falls, questionable syncope #2 paroxysmal atrial fibrillation, maintaining sinus mechanism with bradycardia #3 history of Takotsubo cardiomyopathy, NT proBNP 314 #4 mild single-vessel CAD #5 hypertension #6 hypothyroidism on levothyroxine Plan: From cardiology's perspective we will check TSH and free T4. NT proBNP is within normal limits for patient's age and he appears to be euvolemic. Echocardiogram is pending. We will continue to follow the patient provide further recommendations accordingly. MICROBIOLOGY TEACHER note has been reviewed, I agree with a documented findings and plan of care. Patient was seen and examined.
[2024-09-05] MEDS: ACETAMINOPHEN TAB 325 MG TAB PO PRN (23:10)
[2024-09-06] MEDS: FOLIC ACID 1 MG TAB PO SCH (08:50)
--- NOTE | 2024-09-06 09:00 | HP ---
HISTORY AND PHYSICAL CHIEF COMPLAINT: Frequent falls with confusion and mental status changes. HISTORY OF PRESENT ILLNESS: Another admission for this 78-year-old white male who has a longstanding history of congestive heart failure, encephalopathy, falling, anemia, and major depression. He apparently started falling at home and in addition becoming very irrational and aggressive with his son with whom he lives and he was brought to the emergency room. He is confused. CT fails to demonstrate intracranial hemorrhage. REVIEW OF SYSTEMS: Unobtainable. Past medical history, family history, and personal and social histories are similarly unobtainable, but unchanged from his previous admissions. MEDICATIONS: He is on numerous medications including drugs for his psychiatric problems. LABORATORY DATA: In the emergency room, he had hemoglobin of 9.[address] EKG showed first- degree AV block with a Q in lead III and aVF. PHYSICAL EXAMINATION: HEAD, EARS, EYES, NOSE, MOUTH AND THROAT: Normal. Pupils are equally round and reactive, and gaze is conjugate. NECK: Veins were not distended. CHEST: Clear. CARDIAC: Normal. ABDOMEN: Soft and nontender. EXTREMITIES: Normal. NEUROLOGIC: He was agitated and confused, but he had no. DICTATION ENDS HERE MMODL / IJN: [id number] /
--- NOTE | 2024-09-06 16:41 | P.PN ---
Subjective Progress Note Date: 09/06/24 SUBJECTIVE: Patient is seen and examined at bedside this a.m. Patient is more alert today. Answering questions more appropriately as compared to before. Denies any chest pain chest pressure Currently in sinus rhythm on telemetry. Does not appear volume overloaded. PHYSICAL EXAMINATION Vital signs reviewed. Head: Normocephalic. Eyes: Sclerae nonicteric. Neck: Brisk carotid upstroke, no jugular venous distention. Lungs: Clear to auscultation. Heart: Regular rate and rhythm, S1-S2, no S3, no murmur or rub. Abdomen: Soft nontender, bowel sounds present, Extremities: No edema, Neuro: Alert, oriented, no focal neurological deficits. Detailed neuro exam was not performed. ASSESSMENT Altered mental status, resolving Weakness and fall, questionable syncope Paroxysmal atrial fibrillation, currently in sinus rhythm with bradycardia History of Takotsubo cardiomyopathy, current EF preserved with no apical hypokinesia Mild single-vessel CAD Hypertension Hypothyroidism TSH was 10.2, free T41.6 Echocardiogram showed preserved LV size systolic function with small pericardial effusion with no tamponade physiology PLAN Continue amiodarone 100 mg daily, Lipitor 20 mg daily, metoprolol 25 mg daily, Xarelto 20 mg daily At this time patient is stable from cardiac standpoint. Cardiology team will sign off. Please reconsult us in case of any question. Wagner Cisneros MD, FACC, RPVI Objective - Vital Signs Vital signs: Vital Signs Temp 98.3 F 09/06/24 15:00 Pulse 74 09/06/24 15:00 Resp 17 09/06/24 15:00 BP 138/69 09/06/24 15:00 Pulse Ox 97 09/06/24 15:00 FiO2 Intake & Output 09/05/24 09/06/24 09/06/24 18:59 06:59 18:59 Intake Total 236 118 Output Total 700 2900 550 Balance -290 -7416 -604 Intake: Oral 236 118 Output: Urine 700 2900 Stool 550 Other: Voiding Method External Catheter # Bowel Movements 2 - Labs CBC & Chem 7: 09/04/24 15:10 09/04/24 15:10
[2024-09-07 10:38] VITALS: BMI 36.3
[2024-09-07 14:47] VITALS: BP 169/99; PULSE 68; RESP 16; TEMP 97.7
--- NOTE | 2024-09-11 04:04 | DS ---
DISCHARGE SUMMARY CHIEF COMPLAINT: Frequent falling with encephalopathy. HISTORY OF PRESENT ILLNESS AND PHYSICAL EXAM: Details of this man's history and physical can be found in the initial workup. COURSE IN THE HOSPITAL: After admission, he was placed on bedrest, started on intravenous fluids, started on frequent monitoring of his neurologic status and vital signs. He remained quite lethargic and ataxic. He got out of bed 1 night and fell once again striking back of his head. CT scans were unremarkable. He was seen and followed by Cardiology and Neurology. Some of his medications were decreased such as his analgesics. He became more awake and alert, although he remained fairly confused. He received physical therapy, but was not felt safe to be ambulating alone. Discharge planning was instituted, but eventually it was felt that he could go home as long as he had assistance which he does. He will be released and followed up in the office. Efforts will be made to keep him off any and all medications that could make him lethargic or induce debility. FINAL DIAGNOSES: 1. Frequent falling. 2. Ataxia. 3. Encephalopathy. 4. Closed head injury. 5. Congestive heart failure. OPERATIONS: None. CONSULTATIONS: Cardiology and Neurology. MMODL / IJN: [id number] /
--- NOTE | 2024-09-11 04:49 | PN ---
PROGRESS NOTE DATE OF SERVICE: 09/04/2024 CHIEF COMPLAINT: Frequent falling, encephalopathy, and general debility. HISTORY OF PRESENT ILLNESS: This gentleman is about the same. He still remains slightly confused. He cannot ambulate safely. We are working on a discharge plan. PHYSICAL EXAMINATION: CHEST: Clear. CARDIAC: Unchanged. ABDOMEN: Soft, nontender. IMPRESSION: 1. Frequent falling. 2. Ataxia. 3. Encephalopathy. 4. Cardiomyopathy. 5. Congestive heart failure. PLAN: Continue to consider discharge plan where he can be safely discharged. He is adamant about wanting to go home. MMDRISSL / IJN: [id number] /
--- NOTE | 2024-09-11 04:58 | PN ---
PROGRESS NOTE DATE OF SERVICE: 09/05/2024 CHIEF COMPLAINT: Encephalopathy with frequent falls and congestive heart failure. HISTORY OF PRESENT ILLNESS: This gentleman is doing fairly well and we are still waiting for discharge plan. He cannot go home safely on his own. PHYSICAL EXAMINATION: VITAL SIGNS: Normal. CHEST: Clear. CARDIAC: Unchanged and he has atrial fibrillation. ABDOMEN: Soft and nontender. IMPRESSION: 1. Frequent falling. 2. General debility. 3. Encephalopathy. 4. Congestive heart failure. 5. Chronic low back pain. PLAN: Await discharge plan. MMODL / IJN: [id number] /
--- NOTE | 2024-09-11 05:04 | PN ---
PROGRESS NOTE DATE OF SERVICE: 09/06/2024 CHIEF COMPLAINT: General debility, weakness, encephalopathy, ataxia, and falling. HISTORY OF PRESENT ILLNESS: The patient is stable and there has been no interval change. He is slightly less confused. PHYSICAL EXAMINATION: VITAL SIGNS: Normal. CHEST: Clear. CARDIAC: Unchanged. IMPRESSION: 1. Frequent falling. 2. Encephalopathy. 3. Congestive heart failure. PLAN: Physical Therapy continues to work with the patient, but he is not safely able to go home. MMODL / IJN: [id number] /
== END 2024-09-07 15:45 | disposition home health service (06) ==
LOC: EC 16:27 → 6NMEDSUR 19:24
PROVIDERS: ADMIT Family Medicine; ATTEND Family Medicine
DX: R29.6 Repeated falls (principal); R27.0 Ataxia, unspecified; G93.40 Encephalopathy, unspecified; S09.90XA Unspecified injury of head, initial encounter; W19.XXXA Unspecified fall, initial encounter; I11.0 Hypertensive heart disease with heart failure; I50.22 Chronic systolic (congestive) heart failure; I25.10 Atherosclerotic heart disease of native coronary artery without angina pectoris; D64.9 Anemia, unspecified; E03.9 Hypothyroidism, unspecified; E86.0 Dehydration; N17.9 Acute kidney failure, unspecified; G47.33 Obstructive sleep apnea (adult) (pediatric); G89.29 Other chronic pain; M54.50 Low back pain, unspecified; I31.39 Other pericardial effusion (noninflammatory); I44.0 Atrioventricular block, first degree; I48.0 Paroxysmal atrial fibrillation; J44.9 Chronic obstructive pulmonary disease, unspecified; Z79.01 Long term (current) use of anticoagulants; Z79.890 Hormone replacement therapy; Z79.899 Other long term (current) drug therapy
CPT/HCPCS: 96372; 99285; 36415; 94760; 93005; 97530 ×3; 97161; 84439; 83880; 80053; 80048 ×2; 82607; 82550; 82746; 83605; 83735; 84443; 84484; 85025 ×3; 85610; 85730; 81001; 80306; 70450; G0378 ×8; C8929; J1630; Q9957; 93306

== ENCOUNTER 2024-09-29 18:19 | Emergency (ER) | payer MEDICARE ==
--- NOTE | 2024-09-29 18:51 | ED ---
General Adult HPI - General Chief complaint: Fall Stated complaint: Fall/head injury Time Seen by Provider: 09/29/24 18:35 Source: patient, RN notes reviewed, old records reviewed Mode of arrival: ambulatory Limitations: no limitations - History of Present Illness Initial comments: This is a 78-year-old male who presents to the emergency department stating that he left the hospital after visiting his brother and when he got outside he stumbled and tripped and fell forward hit his forehead on the right side just above his right eyebrow on the ground. Patient states he did not lose consciousness he denies any headache he states he has had previous neck surgery so he always has some neck pain so it is difficult for him to state if he has any new neck pain. Patient denies any numbness weakness. Patient denies any back or chest pain. Patient has abdominal pain. Patient states he did scrape his knuckle on his right fourth digit. Patient denies any other injury at this time. - Related Data Home Medications Medication Instructions Recorded Confirmed Albuterol Sulfate [Proair Hfa] 1 puff INHALATION RT-QID PRN 03/01/22 08/31/24 Atorvastatin [Lipitor] 20 mg PO HS 03/01/22 08/31/24 Rivaroxaban [Xarelto] 20 mg PO W/SUPPER 03/01/22 08/31/24 buPROPion HCL [Wellbutrin XL] 300 mg PO DAILY 03/01/22 08/31/24 Levothyroxine Sodium [Synthroid] 75 mcg PO DAILY 04/27/24 08/31/24 Mirabegron [Myrbetriq] 25 mg PO DAILY 05/19/24 08/31/24 Amiodarone [Cordarone] 100 mg PO DAILY 08/31/24 08/31/24 DULoxetine HCL [Cymbalta] 120 mg PO DAILY 08/31/24 08/31/24 Pregabalin [Lyrica] 200 mg PO TID 08/31/24 08/31/24 Triamterene-Hctz 37.5-25Mg 1 cap PO DAILY 08/31/24 08/31/24 [Dyazide 37.5-25 Capsule] Previous Rx's Medication Instructions Recorded Metoprolol Succinate (ER) [Toprol 50 mg PO DAILY #30 tab 05/23/24 XL] Folic Acid 1 mg PO DAILY #90 tab 09/07/24 Allergies Allergy/AdvReac Type Severity Reaction Status Date / Time No Known Allergies Allergy Verified 08/31/24 19:03 Review of Systems ROS Statement: Those systems with pertinent positive or pertinent negative responses have been documented in the HPI. ROS Other: All systems not noted in ROS Statement are negative. Past Medical History Past Medical History: Atrial Fibrillation, Atrial Flutter, COPD, Hypertension, Osteoarthritis (OA), Sleep Apnea/CPAP/BIPAP Additional Past Medical History / Comment(s): hx of prostate cancer with prostatectomy. Neuropathy, Cardiac cath, does not use c-pap machine anymore. History of Any Multi-Drug Resistant Organisms: None Reported Past Surgical History: Back Surgery, Heart Catheterization, Joint Replacement Additional Past Surgical History / Comment(s): (B) hip replecement, (B)knee replacement, laminectomy x6, prostatectomy, spinal cord decompression Past Anesthesia/Blood Transfusion Reactions: No Reported Reaction Additional Past Anesthesia/Blood Transfusion Reaction / Comment(s): Pt has only received own blood donated prior to surgery. Past Psychological History: Depression Smoking Status: Never smoker Past Alcohol Use History: Occasional Past Drug Use History: None Reported - Past Family History Father Family Medical History: Congestive Heart Failure (CHF), Hypertension, Myocardial Infarction (IA) Additional Family Medical History / Comment(s): Father of a IA at age 89 yrs. Mother Family Medical History: Cancer Additional Family Medical History / Comment(s): Mother had multiple myeloma. She at age 68 yrs. General Exam - General Exam Comments Initial Comments: GENERAL: Patient is well-developed and well-nourished. Patient is nontoxic and well- hydrated and is in mild distress. ENT: Neck is soft and supple. No significant lymphadenopathy is noted. Oropharynx is clear. Moist mucous membranes. Neck has full range of motion without eliciting any pain. Patient has some neck pain on the left trapezius muscle. EYES: The sclera were anicteric and conjunctiva were pink and moist. Extraocular movements were intact and pupils were equal round and reactive to light. Eyelids were unremarkable. PULMONARY: Unlabored respirations. Good breath sounds bilaterally. No audible rales rhonchi or wheezing was noted. CARDIOVASCULAR: There is a regular rate and rhythm without any murmurs gallops or rubs. ABDOMEN: Soft and nontender with normal bowel sounds. SKIN: Patient has a very superficial abrasion just above the lateral aspect of his right eyebrow. Patient also has an abrasion on his right fourth PIP joint NEUROLOGIC: Patient is alert and oriented x3. Cranial nerves II through XII are grossly intact. Motor and sensory are also intact. Normal speech, volume and content. Symmetrical smile. MUSCULOSKELETAL: Normal extremities with adequate strength and full range of motion. LYMPHATICS: No significant lymphadenopathy is noted PSYCHIATRIC: Normal psychiatric evaluation. Limitations: no limitations Course Vital Signs 09/29/24 18:31 Temperature 97.9 F Pulse Rate 58 L Respiratory 17 Rate Blood Pressure 120/69 O2 Sat by Pulse 97 Oximetry Medical Decision Making - Medical Decision Making Was pt. sent in by a medical professional or institution (, HONORIO, POLICE COMMUNICATIONS OPERATOR, urgent care, hospital, or assisted...) When possible be specific @ -No Did you speak to anyone other than the patient for history (EMS, parent, family, police, friend...)? What history was obtained from this source @ -No Did you review nursing and triage notes (agree or disagree)? Why? @ -I reviewed and agree with nursing and triage notes Were old charts reviewed (outside hosp., previous admission, EMS record, old EKG, old radiological studies, urgent care reports/EKG's, assisted records)? Report findings @ -No old charts were reviewed Differential Diagnosis? @ -Cervical spine fracture, skull fracture, intracranial hemorrhage, this is not an all-inclusive list EKG interpreted by me (3pts min.). @ -As above X-rays interpreted by me (1pt min.). @ -None done CT interpreted by me (1pt min.). @ -CT of the brain shows no acute abnormality CT of the C-spine shows no acute abnormality U/S interpreted by me (1pt. min.). @ -None done What testing was considered but not performed or refused? (CT, X-rays, U/S, labs)? Why? @ -None What meds were considered but not given or refused? Why? @ -None Did you discuss the management of the patient with other professionals (duran mendez i.e. HONORIO Roper, POLICE COMMUNICATIONS OPERATOR, lab, RT, psych nurse, social insurance adviser, spa technician, teacher, event security officer, rn case manager hospice)? Give summary @ -No Was smoking cessation discussed for >3mins.? @ -No Was critical care preformed (if so, how long)? @ -No Were there social determinants of health that impacted care today? How? (Homelessness, low income, unemployed, alcoholism, drug addiction, transportation, low edu. Level, literacy, decrease access to med. care, long-term, rehab)? @ -No Was there de-escalation of care discussed even if they declined (Discuss DNR or withdrawal of care, Hospice)? DNR status @ -No What co-morbidities impacted this encounter? (DM, HTN, Smoking, COPD, CAD, Cancer, CVA, ARF, Chemo, Hep., AIDS, mental health diagnosis, sleep apnea, morbid obesity)? @ -None Was patient admitted / discharged? Hospital course, mention meds given and route, prescriptions, significant lab abnormalities, going to OR and other pertinent info. @ -Patient's CAT scans were normal patient had no other complaints except a little bit of an abrasion on the hand on the right and patient be discharged home he is instructed to return if there are any new symptoms or any worsening of the current symptoms Undiagnosed new problem with uncertain prognosis? @ -No Drug Therapy requiring intensive monitoring for toxicity (Heparin, Nitro, Insulin, Cardizem)? @ -No Were any procedures done? @ -No Diagnosis/symptom? @ -Head injury Acute, or Chronic, or Acute on Chronic? @ -Acute Uncomplicated (without systemic symptoms) or Complicated (systemic symptoms)? @ -Uncomplicated Side effects of treatment? @ -No Exacerbation, Progression, or Severe Exacerbation? @ -No Poses a threat to life or bodily function? How? (Chest pain, USA, IA, pneumonia, PE, COPD, DKA, ARF, appy, cholecystitis, CVA, Diverticulitis, Homicidal, Karen cidal, threat to staff... and all critical care pts) @ -No Diagnosis/symptom? @ -Fall Acute, or Chronic, or Acute on Chronic? @ -Acute Uncomplicated (without systemic symptoms) or Complicated (systemic symptoms)? @ -Acute uncomplicated Side effects of treatment? @ -None Exacerbation, Progression, or Severe Exacerbation] @ -No Poses a threat to life or bodily function? @ -No Diagnosis/symptom? @ -Abrasions Acute, or Chronic, or Acute on Chronic? @ -Acute Uncomplicated (without systemic symptoms) or Complicated (systemic symptoms)? @ -Uncomplicated Side effects of treatment? @ -None Exacerbation, Progression, or Severe Exacerbation] @ -No Poses a threat to life or bodily function? @ -No Disposition Clinical Impression: Fall, Head injury, Abrasion Disposition: HOME SELF-CARE Condition: Good Instructions (If sedation given, give patient instructions): Fall Prevention for Older Adults (ED), Head Injury (ED), Abrasion (ED) Is patient prescribed a controlled substance at d/c from ED?: No Referrals: Enoch Galarza MD [Primary Care Provider] - 1-2 days Time of Disposition: 19:27
--- NOTE | 2024-09-29 19:19 | CT ---
EXAMINATION TYPE: CT brain dayneine wo con DATE OF EXAM: 09/29/2024 6:47 PM COMPARISON: 09/02/2024 CLINICAL INDICATION: Male, 78 years old with history of Trauma, Code Coag, Fall on thinners. TECHNIQUE: CT of the brain is performed utilizing 3 mm thick sections through the posterior fossa and 3 mm thick sections through the remaining calvarium. Study is performed within 24 hours of arrival to the hospital. Contrast used: mL of , (none if empty) CT DLP: 1578.9 mGycm, Automated exposure control for dose reduction was used. FINDINGS: No abnormal hyperdensity is present to suggest an acute intracranial hemorrhage. No mass lesion is evident. No acute infarcts are evident. Ventricles and sulci are prominent for the patient age. Paranasal sinuses and mastoid air cells within the [id number] are clear. IMPRESSIONS: 1. No acute intracranial process. Follow-up MRI can be performed as clinically indicated. 2. Age-related atrophy CT cervical spine. COMPARISON: None TECHNIQUE: CT of the cervical spine is performed in the axial plane at 2 mm thick sections. Reconstr ucted images in the coronal, and sagittal plane are reviewed on the computer. FINDINGS: No acute fractures are evident. There is a kyphosis within the lower cervical upper thoracic region Diffuse loss of disc height is present throughout the cervical spine. Vacuum disc phenomenon is evide nt. Some small endplate spurs are present. Vertebral body heights are preserved. No spinal canal stenosis is evident. The level foraminal stenosis from uncovertebral joint is present. IMPRESSION: 1. Diffuse advanced degenerative disc changes throughout cervical spine. 2. Multilevel foraminal narrowing 3. No acute osseous abnormality cervical spine [facility], , 09/29/2024 7:17 PM
[2024-09-29 20:21] VITALS: BP 132/79; PULSE 78; RESP 18; TEMP 97.6
== END 2024-09-29 20:21 | disposition home or self-care (01) ==
LOC: EC 18:19
DX: S60.511A Abrasion of right hand, initial encounter (principal); S09.90XA Unspecified injury of head, initial encounter; W01.0XXA Fall on same level from slipping, tripping and stumbling without subsequent striking against object, initial encounter
CPT/HCPCS: 70450; 72125; 99284

== ENCOUNTER 2025-04-01 14:36 | Emergency (ER) | payer OTHER, MEDICARE ==
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
[2025-04-01 17:52] VITALS: BP 118/68; PULSE 51; RESP 19; TEMP 98.6
[2025-04-01] MEDS: oxyCODONE-APAP 5-325MG 1 EACH TAB PO STA (17:52)
== END 2025-04-01 18:22 | disposition home or self-care (01) ==
LOC: EC 14:36
DX: M25.511 Pain in right shoulder (principal); I48.91 Unspecified atrial fibrillation; V43.52XA Car driver injured in collision with other type car in traffic accident, initial encounter; Y92.410 Unspecified street and highway as the place of occurrence of the external cause
CPT/HCPCS: 70450; 71046; 72125; 99284